=== PATIENT | male | born 1960 | race Caucasian/White ===

== ENCOUNTER 2017-04-22 02:44 | Day surgery (SDC) | payer MEDICAID ==
[~2017-04-22] VITALS: Ht 172.7 cm; Wt 71.7 kg
[~2017-04-22 02:44] MED LIST: ATOR20TA65 PO; CHLO100T2 PO; CHLO200T PO; DIPH-740 PO; DIV500ER PO; DIVA-6 PO; DIVA500T98 PO; DOCU-416 PO; FLUV100C PO; GOLYTE PO; NICO-219 BC; NYST15PO4 TP; OLAN20TA22 PO; QUE100 PO; QUET200T29 PO; SERT-173 PO
[2017-04-22 11:03] VITALS: BP_SYST 126; BP_SYST 192; BP_DIAS 119; BP_DIAS 90
[2017-04-22] MEDS ORDERED: LIDOCAINE MPF 1% 5 ML VIAL ONE (12:51)
[2017-04-22] MEDS ORDERED: PROPOFOL EMUL(*) 10MG/ML 20 ML 60 ML ONE (12:51)
[2017-04-22] MEDS ORDERED: LIDOCAINE/SOD BICARB 8.4% SYR ID ONE (13:00)
[2017-04-22] MEDS ORDERED: NORMOSOL R SOLN(*) 1000 ML BAG 1,000 ML IV PRN (13:00)
[2017-04-22] MEDS ORDERED: MIDAZOLAM 2 MG/2 ML VIAL IVP PRN (13:00)
[2017-04-22 14:33] VITALS: BP 94/59
--- NOTE | 2017-04-22 14:50 | Short(Outpt) Discharge Summary ---
Discharge Summary Reason for Hosp/Final Diag: (1) Bleeding per rectum Status: Chronic Hospital Course & Plan: Colonoscopy with polypectomy and biopsy of upper rectal mass completed without any problems. (2) Fecal incontinence Status: Chronic Departure Discharge to: Home, Self Care Discharge Instructions Home Meds Active Scripts Peg/Electrolytes (GOLYTELY SOLUTION) 4,000 Ml Soln, 1 GAL PO ONCE, #1 GAL 0 Refills Prov:ZACH CLAUDIO MD 04/12/17 Reported Medications Olanzapine (OLANZAPINE) 20 Mg Tablet, 20 MG PO QHS 11/06/16 Divalproex Sodium (DEPAKOTE) 500 Mg Tablet.dr, 1000 MG PO QHS, TAB 11/06/16 Divalproex Sodium (DEPAKOTE) 500 Mg Tablet.dr, 500 MG PO QAM, TAB 11/06/16 Discontinued Scripts Nystatin 100,000 Unit/Gm Top Powder (NYSTATIN 100,000 UNIT/GM TOP POWDER) 15 Gm Powder, 15 GM TP BID, #15 GM 1 Refill Prov:KHOA MADRID MD 02/19/17 Follow up Referrals: General Surgery - 04/30/17 @ Surgery, General with Zach Claudio Md You have a follow up appointment scheduled with Dr. Claudio on 04/30/17, at 12:30pm. Diet: Regular Activity: As Tolerated Problem Qualifiers (1) Fecal incontinence: Fecal incontinence type: unspecified Qualified Codes: R15.9 - Full incontinence of feces ZACH CLAUDIO MD Apr 22, 2017 14:50
[2017-04-22 14:56] VITALS: BP 126/87
--- NOTE | 2017-04-22 14:58 | Post Operative Progress Note ---
Post Operative Progress Note Date: Apr 22, 2017 Time: 14:50 Surgeon: Jude Dictation number: [id number] on M*Modal Anesthesia: TIVA by Dr. Bullock Pre-Op Diagnosis: BRBPR Fecal incontinence Rectal lesion on MRI Post-Op Diagnosis: Sigmoid colon polyp Rectal polyp Rectal mass, circumferential but not obstructing Findings: 1 cm sigmoid polyp 2 cm pedunculated rectal polyp Circumferential, 5cm long, rectal mass from 10-15cm from anal verge Procedure(s): Colonoscopy with snare polypectomy x2 and biopsy of rectal mass Specimen Removed:(May be N/A): 1) Sigmoid polyp 2) Rectal polyp 3) Rectal mass Complications: None Fluids: See anesthesia record Estimated Blood Loss: Minimal Date OP Note Dictated: Apr 22, 2017 Time OP Note Dictated: 14:52 ZACH CLAUDIO MD Apr 22, 2017 14:58
[2017-04-22 15:19] VITALS: BP 116/79
--- NOTE | 2017-04-24 10:41 | ULLRICH COLONOSCOPY ---
EVENT DATE: April 22, 2017 SURGEON: Luis F Roque MD ANESTHESIOLOGIST: Familia Bullock MD ANESTHESIA: TIVA PREOPERATIVE DIAGNOSIS 1. Bright red blood per rectum. 2. Fecal incontinence. 3. Rectal lesion on pelvic MRI. POSTOPERATIVE DIAGNOSIS 1. Sigmoid colon polyp. 2. Rectal polyp. 3. Large rectal mass, circumferential, not obstructing. PROCEDURE PERFORMED Colonoscopy with polypectomy x2 and biopsy of rectal mass. COMPLICATIONS None. CONDITION Stable. ESTIMATED BLOOD LOSS None. SPECIMENS 1. Sigmoid colon polyp. 2. Rectal polyp. 3. Rectal mass. FINDINGS This patient had a semipedunculated sigmoid polyp and a fully pedunculated rectal polyp. The sigmoid polyp was about 1 cm in diameter, and the rectal polyp was about 2 cm in diameter. He had a circumferential mass suspicious for a cancer that started at 10 cm from the anal verge and went up to 15 cm from the anal verge. It was not obstructing. There was no active bleeding. BOWEL PREP Excellent. INDICATIONS This is 56-year-old gentleman with severe bipolar disorder. He was referred to my office with bright red blood per rectum and fecal incontinence. He was initially resistant to much of anything in the way of a workup, and he refused colonoscopy initially, but ultimately I was able to talk him into a MRI of his pelvis. This revealed a circumferential thickening consistent with a possible neoplasm. When I saw him back, I confronted him with this information and ultimately was able to persuade him that a colonoscopy would be in his best interest. He has provided consent for colonoscopy to evaluate this. DESCRIPTION OF PROCEDURE The patient was brought to the endoscopy room and placed in the left lateral decubitus position. TIVA was administered. A digital rectal examination was completed which was unremarkable. Sphincter tone seemed to be intact. There was no palpable mass at the extent I could get my finger in to the rectum. The colonoscope was obtained and tested to ensure it was completely functional and was lubricated and inserted into his rectum through his anus. I immediately saw the mass and measured the distance from the anal verge at about 10 cm and then was able to advance the scope easily beyond the mass. It ended at about 15 cm from the anal verge. I was then able to advance the scope all the way through to the cecum. I then slowly withdrew the scope and looked at all mucosal surfaces for any abnormalities. In the sigmoid colon was a semipedunculated polyp that was about 1 cm in diameter. I removed this with a snare. I continued to withdraw the scope and identified a pedunculated polyp adjacent to the rectal mass on the distal end of the rectal mass. I removed this with a snare in its entirety. I then took several hot forceps biopsies of the actual rectal mass and then took some snare biopsies to remove more tissue to confirm a diagnosis of it, as well. I made sure this was all hemostatic with the hot biopsy forceps. There was no active bleeding when this was complete. I retroflexed the the scope to look at the distal rectum and proximal anal canal. This was unremarkable. I straightened the scope and suctioned as much of the CO2 out as I could, and then withdrew the scope from his rectum. He was then brought to the recovery area in good condition, having tolerated the procedure without any apparent problems. [place]
== END 2017-04-22 15:40 | disposition home or self-care (01) ==
LOC: OR 02:44
PROVIDERS: ATTEND Surgery
DX: C20 Malignant neoplasm of rectum (principal)
CPT/HCPCS: 45384; 45385; 88305; J2001; J2704

== ENCOUNTER → 2017-05-03 | Outpatient (CLI) | payer MEDICAID ==
[~2017-05-03] MED LIST changes: -SERT-173 PO; +SERT20OR6 PO
[2017-05-03 14:06] LABS: PLATELET COUNT, AUTOMATED 407 K/uL (150-450)
== END ==
LOC: LAB 13:19
PROVIDERS: ATTEND Surgery
DX: C20 Malignant neoplasm of rectum (principal); F31.9 Bipolar disorder, unspecified; E78.5 Hyperlipidemia, unspecified
CPT/HCPCS: 36415; 80164; 82040; 82247; 82248; 82310; 82374; 82378; 82435; 82465; 82565; 82947; 83718; 84075; 84132; 84155; 84295; 84450; 84460; 84478; 84520; 85025

== ENCOUNTER 2017-05-13 10:00 | Outpatient (RCR) | payer MEDICAID ==
[~2017-05-13] VITALS: Ht 171.4 cm; Wt 74.6 kg
[2017-05-13 10:18] VITALS: BP 128/89
--- NOTE | 2017-05-13 18:16 | CONSULTATION ---
EVENT DATE: May 13, 2017 REFERRING PHYSICIAN Luis F Roque MD REASON FOR CONSULTATION Evaluation and management of rectal adenocarcinoma. HISTORY OF PRESENT ILLNESS Patient is a 56-year-old male with history of severe bipolar disorder, who presented with rectal bleeding and fecal incontinence. So the patient had an MRI of the pelvis done on April 05, 2017, which showed an anal mass at the mid rectum 6.57 cm from the anal verge with possible penetration to the mesorectal fat with no lymphadenopathy noted. This was followed by colonoscopy with biopsy done on April 22, 2017, and there was a rectal mass and the pathology came back positive for invasive adenocarcinoma, and there was also a polyp in the sigmoid colon which turned out to be a tubular adenoma. Patient had a PET CT scan done on May 07, 2017 which showed hypermetabolic mid rectal mass SUV 15.7 with extension of the mass to the mesorectal fascia. There were two 6 mm mesorectal nonhypermetabolic lymph nodes. PAST MEDICAL HISTORY 1. Bipolar disorder. 2. Hyperlipidemia. 3. OCD. 4. History of skin cancer. PAST SURGICAL HISTORY 1. Appendectomy in 1985. 2. Tonsillectomy in 1967. 3. Cornea transplant in 1999. 4. Hernia repair. FAMILY HISTORY Mother had colon cancer at the age of 60, maternal aunt colon cancer at the age of 57, paternal aunt with lung cancer. SOCIAL HISTORY Patient is single with two children. He smokes one pack a day for nearly 40 years. Denies any abuse of alcohol or illicit drugs. CURRENT MEDICATIONS 1. Olanzapine 20 mg at bedtime. 2. Depakote 1000 mg at bedtime and 500 mg every morning. ALLERGIES PREDNISONE, which causes skin rash. REVIEW OF SYSTEMS CONSTITUTIONAL: No appetite or weight change. No fever, chills or sweating. No recent infection. HEENT: Ears: No tinnitus or hearing problem. Nose: Patient has nasal discharge. Throat: No sore throat or mouth ulcers. Eyes: No diplopia or visual changes. RESPIRATORY: Patient has occasional wheezing from asthma. CARDIOVASCULAR: No chest pain, orthopnea, or paroxysmal nocturnal dyspnea (PND) . No edema. No palpitations. GASTROINTESTINAL: Patient had diarrhea and rectal bleeding recently. GENITOURINARY: No hematuria or dysuria. NEUROLOGICAL: Patient has occasional headache. HEMATOLOGIC/LYMPHATIC: No bleeding or easy bruising. No weakness or fatigue. No enlarged lymph nodes. SKIN: No skin rash or lumps. PSYCHIATRIC: No anxiety or depression. PHYSICAL EXAMINATION GENERAL: Looks stable. Well-developed, well-nourished, and in no acute distress. VITAL SIGNS: Blood pressure 128/89, pulse 79 per minute, respirations 16 per minute, temperature 97.1, pulse oximetry 96% on room air. HEENT: Head: Atraumatic. No sinus tenderness to palpation. Eyes: No icterus or conjunctivitis. Mouth and throat: No oral thrush or mucositis. NECK: Supple. No cervical or supraclavicular lymphadenopathy. LUNGS: Clear to auscultation and percussion bilaterally. HEART: Regular rate and rhythm. No gallops, murmurs, clicks or rubs. ABDOMEN: Soft and lax. No tenderness. No hepatosplenomegaly. No masses. EXTREMITIES: No cyanosis, clubbing or edema. LYMPHATICS: No peripheral lymphadenopathy. NEUROLOGICAL: Conscious, alert and oriented times three. No focal motor or sensory deficits. PSYCHIATRIC: Mood and affect appear normal. SKIN: No skin rash, bruise or purpuric eruption. ASSESSMENT 1. Stage T3 rectal adenocarcinoma status post colonoscopy with biopsy, and the patient was found to have a rectal mass at the mid rectum 6.5 cm from the anal verge with possible penetration to the mesorectal fascia without noted lymph nodes by the MRI of the pelvis done on April 05, 2017. PET CT scan done on May 07, 2017 showed hypermetabolic mid rectal mass with SUV 15.7 with extension of the mass to the mesorectal fascia, but there was no hypermetabolic lymphadenopathy by the PET scan. Given his general condition with bipolar disorder, and patient has involuntary movements sometimes of his hands, I do not think the patient will be a good candidate for intravenous continuous infusion of 5-FU, and instead I am planning to treat him with capecitabine during radiation therapy. I will arrange an appointment with the radiation oncologist and I will coordinate with them to start capecitabine when the patient will start radiation therapy. Following chemoradiation patient will be referred back to Dr. Roque for surgical resection and we will see him after surgery to decide if he will need adjuvant chemotherapy based on the pathological diagnosis and stage or not. I explained that to the mother who accompanied the patient, and they are agreeable with the plan of management. 2. Bipolar disorder on treatment. PLAN 1. Radiation Therapy consultation. 2. Capecitabine 800 mg/m2 to be given during radiation therapy. 3. CBC, chem panel to be checked prior to starting chemotherapy. 4. Patient to return on a weekly basis after starting chemotherapy with CBC, chem panel. 5. Patient to contact us for any new concern or complaints. MTDD
--- NOTE | 2017-05-18 18:40 | CONSULTATION ---
EVENT DATE: May 18, 2017 REFERRING PHYSICIANS MD Luis F Green MD PRIMARY SITE AND HISTOPATHOLOGY Invasive adenocarcinoma of the rectum. Tumor located in the mid rectum 6.5 cm from the anal verge. PET/CT imaging on May 07, 2017 estimating the rectal mass size to be 3.1 x 3.7 x 3.8 cm. SUV 15.7 consistent with hypermetabolic mass. Tumor extension through the muscularis propria into the mesorectal fat. No hypermetabolic lymphadenopathy is noted. No signs of pulmonary or hepatic metastases. Rectal mass was biopsied on April 23, 2017. HISTORY This is a 56-year-old gentleman with severe bipolar disorder. He is an unreliable historian so the majority of his history was gained from his mother. The patient has been having difficulties with fecal incontinence for the last three months. He has also been experiencing rectal bleeding during that time frame. He denies any pain. The patient was initially seen by Dr. Welch and referred to Dr. Roque for further assessment. The patient underwent a colonoscopy with biopsy of a large rectal mass. This was described as circumferential, 5 cm in length. Rectal mass located 10-15 cm from the anal verge. Biopsy was confirmatory for invasive adenocarcinoma. Additional biopsy from the sigmoid colon was a tubular adenoma. The patient had a PET CT scan performed in [place] on May 07, 2017 which demonstrated a hypermetabolic large mass in the presacral area consistent with the listed dimensions above. There were two 6 mm adjacent lymph nodes noted, but they were not hypermetabolic. No signs of distant tumor metastasis. The patient has been seen by Dr. Sanchez and is set to start capecitabine ( Xeloda) with concurrent radiation therapy. I am meeting the patient for the first time today. Weight loss of approximately five pounds in the last three months. The patient has severe anxiety. He is unable to focus during the interview today. He tends to shake when he gets nervous and also at rest. When he is nervous he will state he is seeing a floater in his right eye according to his mother, which was the case today. He denies any rectal pain. He did have some irritation of the skin a few months back and was placed on an antifungal powder at that time. PAST MEDICAL HISTORY 1. Bipolar disorder. 2. Hyperlipidemia. 3. OCD. 4. History of skin carcinoma over the nose. PAST SURGICAL HISTORY 1. Appendectomy in 1985. 2. Tonsillectomy in 1967. 3. Cornea transplant 1999. 4. Hernia repair. FAMILY HISTORY Notable for a mother who had colon cancer at age 60, maternal aunt with colon cancer at age 57, paternal aunt with lung cancer. SOCIAL HISTORY Patient lives with his mother. Smoking history of one pack per day for 40 years. He is listed as single with two children. MEDICATIONS 1. Olanzapine 20 mg q.day. 2. Depakote 500 mg one tablet b.i.d. 3. Fish oil q.day. 4. Multivitamin q.day. ALLERGIES PENICILLIN. REVIEW OF SYSTEMS Moderately unreliable. Difficulty with concentration, fatigue, rectal bleeding , tremor, urinary frequency related to fluid intake, loose bowels, blood in stools. PHYSICAL EXAMINATION GENERAL: A medium build 56-year-old male. VITAL SIGNS: BP 123/78, pulse 77, respirations 16, O2 sat 96%, height 68 inches , weight 170. LUNGS: Clear bilaterally. HEART: Sounds regular. ABDOMEN: Soft. RECTAL: I was unable to perform a rectal exam today as patient was very apprehensive. EXTREMITIES: Revealed no visible edema. IMPRESSION This is a 56-year-old gentleman who presents with locally advanced rectal carcinoma which unfortunately is associated with stool incontinence and bleeding. I reviewed the PET/CT scan and his baseline lab work. The tumor does not appear to make the CEA marker, which is normal at 1.8. LFTs are normal at this time and his hemoglobin is stable at 14.6. He appears to have an unfavorable T3 NX M0 malignancy. PLAN Proceed with external beam radiation therapy 50 5500 cGy with the shrinking field technique. Simulation will take place tomorrow. We will attempt the patient in a prone position first. If he is unable to hold still in that position, we will place the patient in a supine position. Treatments will take approximately 15-20 minutes to deliver daily. From my experience, rectal bleeding typically resolves by week three or four. We may see some improvement in bowel continence, but this is difficult to predict at this time. Patient will be followed closely during the treatment course. I met the patient's mother today and also introduced [facility]. Treatment regimen was described and signed consent was obtained from the patient. Approximately six weeks after the treatment is complete, the patient will be restaged and sent back to Dr. Roque for surgical considerations. Treatment course will be modified based on tolerance. MTDD
== END 2017-05-14 10:06 | disposition home or self-care (01) ==
LOC: ONC 10:00
PROVIDERS: ATTEND Internal Medicine Hematology
DX: C20 Malignant neoplasm of rectum (principal); F31.9 Bipolar disorder, unspecified; F17.210 Nicotine dependence, cigarettes, uncomplicated; R19.7 Diarrhea, unspecified; K62.5 Hemorrhage of anus and rectum
CPT/HCPCS: 99202

== ENCOUNTER 2017-07-06 08:56 | Outpatient (RCR) | payer MEDICAID ==
--- NOTE | 2017-05-19 16:10 | ONC Progress Note - NP.Halsey ---
Patient History Date of Service May 19, 2017 Reason For Visit/HPI Patient seen with the care team to include his mother, social organization professor, medical oncology nursing, radiation oncology nursing and myself to discuss education prior to starting treatment with oral Xeloda and concurrent daily radiation therapy for his invasive adenocarcinoma of the rectum. Patient is anxious but participated well in the education today. Prior to this appointment patient completed CT simulation for treatment planning of radiation therapy. Side effects and management of side effects of both modalities of treatment were reviewed with patient and his mother today. Safety factors regarding medication management were reviewed. Patient reports that he is currently having rectal bleeding and stool incontinence. He has a history of low sodium thought to be related to his Depakote medication. Problem List (1) Acute psychosis (2) Bleeding per rectum (3) Fecal incontinence (4) Hyponatremia with decreased serum osmolality (5) OCD (obsessive compulsive disorder) (6) Severe manic bipolar 1 disorder with psychotic behavior (7) Rectal cancer Medical History Family History: FH: colon cancer MOTHER FH: depression MOTHER FH: heart disease FATHER FH: thyroid disease FATHER BROTHER OR SISTER Psychosocial History Social History Patient lives with his mother. Smoking history of one pack per day for 40 years. He is listed as single with two children. Occupational History Patient is currently on disability Smoking History: Yes (1 PPD) Smoking Status: Heavy Tobacco Smoker Exposure to Second Hand Smoke?: No Medications and Allergies Active Scripts Capecitabine (XELODA) 500 Mg Tab, 1500 MG PO BID, #6 TAB Prov:VIVIANA COLORADO [facility]-, ONC 05/19/17 Ondansetron (ZOFRAN ODT) 8 Mg Tab.rapdis, 8 MG PO Q8H for nausea, #30 TAB 1 Refill Prov:VIVIANA COLORADO [facility]-, ONC 05/19/17 Reported Medications Olanzapine (OLANZAPINE) 20 Mg Tablet, 20 MG PO QHS 11/06/16 Divalproex Sodium (DEPAKOTE) 500 Mg Tablet.dr, 1000 MG PO QHS, TAB 11/06/16 Divalproex Sodium (DEPAKOTE) 500 Mg Tablet.dr, 500 MG PO QAM, TAB 11/06/16 Allergies: Coded Allergies: Penicillins (Verified Allergy, Unknown, 10/24/16) Review of System/Physical Exam Review of Systems All Systems Reviewed/Normal: Yes, Except as Noted Hematologic: Positive for Bleeding, Positive for Fatigue, Positive for Weakness Psychiatric: Anxiety, Depression Physical Exam Vital Signs Temperature: Pulse: BP Systolic: BP Diastolic: Respiratory Rate: O2 SAT: O2 Delivery: Height (inches) 67.50 Weight lb: 158 Weight oz: Weight Kg (Chidi): Pain: General: Stable, Well Developed, Well Nourished, Not In Acute Distress Psychiatric: Other (Patient is anxious and shakes his hands frquently. He was attentive when in the room and answered my questions appropriately. He did leave the room frequently to go to the bathroom. Noted to be agitated but improved from yesterday. ) Chemo Education Chemotherapy Education: Patient is seen today for education regarding chemotherapy with oral Xeloda for his rectal cancer. The treatment schedule and associated appointments were discussed and reviewed. A print out will be given to the patient. The intent for treatment is currative. Consent for treatment was completed today post education and his mother also signed the form as a witness. Mechanism of action and associated side effects of oral xeloda was discussed. The patient is at increased risk for infection related to bone marrow suppression with chemotherapy. Signs and symptoms of infection were reviewed with recommendation of calling the clinic if fever, chills or a temperature of 100.5 or greater is experienced. Regular monitoring of blood work will be completed. The patient is at increased risk of nausea and vomiting related to chemotherapy. Home antiemetics were reviewed with a schedule of when to take them. Script for zofran was sent to [facility]. Increased bowel movements or diarrhea may occur. The use of Imodium was reviewed and encouraged to have on hand. He will be prescribed Lomotil if needed. Dehydration from decreased intake, nausea or diarrhea could also occur. Side effects of dehydration were reviewed and hydration will be given as needed. Self-care strategies to minimize any symptoms from treatment were taught and written material was given for further review at home. The strategies included: dietary modifications for nausea, diarrhea, fatigue and/or mouth sores, exercise and resting for fatigue, hydration for dehydration, and skin care for dry skin reactions. In addition, safety measures for oral chemotherapy to prevent teratogenic side effects to others was reviewed in detail to include good hand washing, double flushing, and what to do during sexual intercourse. Patient reports that he is not sexually active. The above information will be reviewed with the patient and family members as needed. Assessment and Plan Assessment & Plan Patient is a 56-year-old gentleman with locally advanced rectal carcinoma. Patient is currently experiencing associated stool incontinence and rectal bleeding. PET/CT scan was reviewed as well as CEA tumor marker which was reported normal at 1.8 and is suggestive that it does not make the CEA marker. He appears to have an unfavorable T3 NX MO malignancy. The plan of care would be to proceed with radiation therapy to shrink the field. Patient will also have concurrent oral Xeloda at 1500 mg twice a day taken on Wednesday through Wednesday and held on Wednesday and Wednesday. Zofran was prescribed for management of nausea. Patient was encouraged to have Imodium on hand for management of diarrhea. Education was completed to review side effects of oral chemotherapy and radiation therapy. Written material was given to patient and his mother to review as needed. A consent was signed for radiation therapy with Dr. Jenkins yesterday during initial consult and today myself during education. A Patient will complete approximately 6 weeks of combined treatment , the patient will then be sent back to Dr. Zepeda for surgical considerations. Treatment will be modified based on tolerance. Patient is scheduled to start next Wednesday taking oral Xeloda at 8 AM and 8 PM and radiation therapy as scheduled. He will have weekly labs drawn on Wednesdays. He will follow with myself on a weekly basis and with radiation oncology on Tuesdays. I personally spent a total of 60 minutes was spent [id number] with patient and his mother discussing plan of care and management. VIVIANA [place]-BC, ONC May 19, 2017 16:10
[~2017-07-06 08:56] MED LIST changes: +ONDA8TAB94 PO; +SERT-173 PO; -SERT20OR6 PO; +XELOD500PT PO
[2017-08-16] MEDS ORDERED: GOLYTE PO (13:25)
== END 2017-08-15 ==
LOC: RAON 08:56
PROVIDERS: ATTEND Radiology Radiation Oncology
DX: Z51.0 Encounter for antineoplastic radiation therapy (principal); C20 Malignant neoplasm of rectum; Z85.828 Personal history of other malignant neoplasm of skin; E78.5 Hyperlipidemia, unspecified; R53.83 Other fatigue; R35.0 Frequency of micturition
CPT/HCPCS: 36415; 77280; 77290; 77295; 77300; 77301; 77334; 77336; 77338; 77386; 77412; 82040; 82247; 82310; 82374; 82435; 82565; 82947; 84075; 84132; 84155; 84295; 84450; 84460; 84520; 85025; 99203

== ENCOUNTER 2017-08-06 14:59 | Outpatient (RCR) | payer MEDICAID ==
[2017-05-26 09:15] VITALS: BP 106/78
[2017-05-26 09:38] LABS: PLATELET COUNT, AUTOMATED 408 K/uL (150-450)
[2017-06-02 09:30] VITALS: BP 117/86
[2017-06-02 09:39] LABS: PLATELET COUNT, AUTOMATED 446 K/uL (150-450)
[2017-06-09 09:23] VITALS: BP 153/91
[2017-06-09 09:38] LABS: PLATELET COUNT, AUTOMATED 374 K/uL (150-450)
[2017-06-16 09:35] VITALS: BP 145/96
[2017-06-16 09:39] LABS: PLATELET COUNT, AUTOMATED 273 K/uL (150-450)
[2017-06-23 09:26] VITALS: BP 114/50
[2017-06-23 09:31] LABS: PLATELET COUNT, AUTOMATED 231 K/uL (150-450)
[2017-06-30 09:31] LABS: PLATELET COUNT, AUTOMATED 298 K/uL (150-450)
[2017-08-06 15:16] VITALS: BP 134/84
[2017-08-06 15:29] LABS: PLATELET COUNT, AUTOMATED 358 K/uL (150-450)
[2017-08-16] MEDS ORDERED: GOLYTE PO (13:25)
== END 2017-08-23 ==
LOC: SPU 14:59
PROVIDERS: ATTEND Internal Medicine Hematology
DX: C20 Malignant neoplasm of rectum (principal)
CPT/HCPCS: 36415; 82040; 82247; 82310; 82374; 82378; 82435; 82565; 82947; 84075; 84132; 84155; 84295; 84450; 84460; 84520; 85025

== ENCOUNTER → 2017-08-17 | Outpatient (CLI) | payer MEDICAID ==
[~2017-08-17] MED LIST changes: +GADOBENATE 529MG/1ML 15ML VIAL IVP ONE; +NS 0.9% 20 ML SDV 40 ML ONE
--- NOTE | 2017-08-17 16:45 | RADIOLOGY IMAGING REPORT ---
FACILITY: [facility] - [place] PATIENT NAME: Matthew Roth : 1960 MR: [id number] V: [id number] EXAM DATE: ORDERING PHYSICIAN: ZACH CLAUDIO TECHNOLOGIST: Location: [facility] [place] Patient: Matthew Roth : 1960 Visit/Account:[id number] Date of Sevice: 08/17/2017 PELVIS W W/O CONTRAST COMPARISON: Pelvis MRI 04/05/2017. HISTORY: Rectal cancer TECHNIQUE: Multiplanar MRI pelvis utilizing T1-weighted and fluid sensitive sequences. CONTRAST: 15 mL of IV Gadobenate intravenously. MRI PELVIS FINDINGS: VASCULAR: Unremarkable. PELVIC BOWEL: Mid rectal mass is again identified but less conspicuous compared to the previous stud y, overall measuring smaller. On today's exam along the left lateral wall of the rectum between one and 5:00 positions there is a f lat morphology mass measuring about 1.7 x 3.2 cm transversely by up to 4.4 cm craniocaudally (series 17 image 31, series 10 image 14). This compares to measurements of 2.2 x 3.5 x 4.6 cm on the prior. A focal, nodular contour bulge into the mesorectal fat near the 2:00 position is smaller, currently about 1.1 cm transverse diameter (series 17 image 31), previously 1.9 cm. There is again probably re presents invasion through the muscularis propria. On the prior study this component of tumor demonst rated hypoenhancement consistent with necrosis but on today's study it enhances similarly to the rest of the lesion. There is a thin linear extension from this bulge to the anterior mesorectal fat seri es 17 image 30, retrospectively considered unchanged from the previous study considering that the eleni or study did not include a small [id number] high resolution sequence. Previous study demonstrated restricted diffusion circumferentially in the rectum at the level of tumo r suggesting an annular lesion. On today's exam there is annular constriction of the rectum, with mi ld associated wall thickening and enhancement best seen coronal series 6 image 34, supporting this, b ut the diffusion abnormality has resolved. Change in diffusion signal also suggests partial treatmen t response. BLADDER: Unremarkable. No visible focal wall thickening, appreciable lesion, or calculus. PELVIC NODES: Unremarkable. No adenopathy. PELVIC ORGANS: Unremarkable prostate within the limitations of scan protocol. BONES: Unremarkable. No acute appearing fracture or suspicious bone lesion. OTHER: Negative. IMPRESSION: 1. Compared to 04/05/2017, decreased size of an annular, constricting mid rectal mass which has a fl at component along its left lateral wall. 2. Decreased size of a nodular component at its 2:00 position consistent with extension of tumor thr ough the muscularis propria. 3. Linear enhancement extending from the contour bulge to the anterior mesorectal fascia which is un changed. 4. No evidence of distant metastatic disease in the pelvis. Report Dictated By: Dionisio Mahmood at 08/17/2017 4:10 PM Report E-Signed By: Dionisio Mahmood at 08/17/2017 4:40 PM WSN:[id number]
== END ==
LOC: MRI 07:00
PROVIDERS: ATTEND Surgery
DX: C20 Malignant neoplasm of rectum (principal)
CPT/HCPCS: 72197; A9577; J7050

== ENCOUNTER 2017-08-26 00:40 | Day surgery (SDC) | payer MEDICAID ==
[~2017-08-26] VITALS: Ht 170.2 cm; Wt 70.3 kg
[~2017-08-26 00:40] MED LIST changes: -GADOBENATE 529MG/1ML 15ML VIAL IVP ONE; -NS 0.9% 20 ML SDV 40 ML ONE
[2017-08-26] MEDS ORDERED: PROPOFOL EMUL(*) 10MG/ML 20 ML 60 ML ONE (10:40)
[2017-08-26] MEDS ORDERED: LIDOCAINE MPF 1% 5 ML VIAL ONE (10:40)
[2017-08-26] MEDS ORDERED: KETOROLAC 30 MG/ML VIAL ONE (10:59)
[2017-08-26] MEDS ORDERED: LIDOCAINE/SOD BICARB 8.4% SYR ID ONE (11:50)
[2017-08-26] MEDS ORDERED: NORMOSOL R SOLN(*) 1000 ML BAG 1,000 ML IV PRN (11:50)
[2017-08-26 11:52] VITALS: BP 132/94
[2017-08-26] MEDS ORDERED: PHENYLEPHRINE 10 MG/1 ML VIAL ONE (11:52)
[2017-08-26] MEDS ORDERED: PROPOFOL EMUL(*) 10MG/ML 20 ML 20 ML ONE (13:37)
[2017-08-26 13:58] VITALS: BP 84/58
[2017-08-26 14:00] VITALS: BP 91/62
--- NOTE | 2017-08-26 14:11 | Short(Outpt) Discharge Summary ---
Discharge Summary Reason for Hosp/Final Diag: (1) Rectal cancer Status: Chronic Hospital Course & Plan: Colonoscopy with polypectomy completed without problems. Departure Discharge to: Home, Self Care Discharge Instructions Home Meds Active Scripts Peg/Electrolytes (GOLYTELY SOLUTION) 4,000 Ml Soln, 1 GAL PO ONCE, #1 GAL 0 Refills Prov:ZACH CLAUDIO MD 08/16/17 Reported Medications Olanzapine (OLANZAPINE) 20 Mg Tablet, 20 MG PO QHS 11/06/16 Divalproex Sodium (DEPAKOTE) 500 Mg Tablet.dr, 1000 MG PO QHS, TAB 11/06/16 Divalproex Sodium (DEPAKOTE) 500 Mg Tablet.dr, 500 MG PO QAM, TAB 11/06/16 Discontinued Scripts Capecitabine (XELODA) 500 Mg Tab, 1500 MG PO BID, #6 TAB Prov:VIVIANA COLORADOP-BC, ONC 05/19/17 Ondansetron (ZOFRAN ODT) 8 Mg Tab.rapdis, 8 MG PO Q8H for nausea, #30 TAB 1 Refill Prov:VIVIANA [place]O NATIONAL INSURANCE OFFICER-BC, ONC 05/19/17 Follow up Referrals: General Surgery - 09/03/17 @ Surgery, General with Zach Claudio Md You have a follow up appointment scheduled with Dr. Claudio on 09/03/17, at 10:00am. Diet: Regular Activity: As Tolerated ZACH CLAUDIO MD August 26, 2017 14:11
[2017-08-26 14:15] VITALS: BP 104/76
--- NOTE | 2017-08-26 14:17 | Post Operative Progress Note ---
Post Operative Progress Note Date: August 26, 2017 Time: 14:10 Surgeon: Jude Dictation number: [id number] Anesthesia: TIVA by Dr. Bullock Pre-Op Diagnosis: Rectal cancer, s/p neoadjuvant chemotherapy and radiation Post-Op Diagnosis: EDGARDO Findings: Polyp at hepatic flexure Ulceration in upper rectum where cancer was located, distal edge of ulcer at 12cm from anal verge Procedure(s): Colonoscopy with polypectomy Specimen Removed:(May be N/A): Hepatic flexure polyp Complications: None Fluids: See anesthesia record Estimated Blood Loss: Minimal Date OP Note Dictated: August 26, 2017 Time OP Note Dictated: 14:12 ZACH CLAUDIO MD August 26, 2017 14:17
[2017-08-26 14:57] VITALS: BP 132/85
[2017-08-26 14:59] VITALS: BP 125/91
--- NOTE | 2017-08-26 19:42 | OPERATIVE REPORT 1 ---
EVENT DATE: August 26, 2017 ENDOSCOPIST: Luis F Roque MD ANESTHESIOLOGIST: Familia Bullock MD ANESTHESIA: TIVA. PREPROCEDURE DIAGNOSIS Rectal cancer. POSTPROCEDURE DIAGNOSIS Rectal cancer. PROCEDURE PERFORMED Colonoscopy with snare polypectomy. COMPLICATIONS None. CONDITION Stable. BLOOD LOSS None. FINDINGS Patient had a 1 cm polyp at the hepatic flexure. He had a large area of ulceration in the area where his previous rectal cancer was located. The distal end of the ulceration was at about 12 cm from the anal verge. No other abnormalities were found. INDICATIONS This is a 57-year-old gentleman who initially presented to my office with fecal incontinence and bright red blood per rectum. He had never had a colonoscopy, so we completed this and identified a rectal cancer. He then underwent neoadjuvant chemo and radiation therapy, and now he is recovering from this, and we are starting to plan for surgical resection. He has provided consent for colonoscopy. DESCRIPTION OF PROCEDURE The patient was brought to the operating room and placed in the left lateral decubitus position on his gurney. TIVA anesthesia was administered, and a digital rectal exam was completed which was unremarkable. The colonoscope was obtained and tested to ensure it was completely functional, then lubricated and inserted into his rectum through his anus. I advanced the scope with very little difficulty all the way through the cecum and also terminal ileum and slowly withdrew the scope as I looked at all mucosal surfaces for any abnormalities. At the hepatic flexure, there was a 1 cm polyp which was removed with a snare, and it was retrieved. I continued to withdraw the scope and in the rectum saw the ulceration where the previous cancer had been. There were some surrounding inflammatory changes around the ulceration. I then retroflexed the scope to look at the distal rectum, and there were no abnormalities here. I then removed the scope and obtained a rigid proctoscope and inserted it into his rectum. I insufflated the rectum and advanced it all the way to the distal end of the area of the ulceration. It was about 12 cm at the anal verge. I then desufflated his colon and removed the proctoscope. The prep was good, and the withdrawal time was approximately 10 minutes. He was then brought back to the recovery area in good condition. RICO
[2017-08-27] MEDS ORDERED: NORMOSOL R SOLN(*) 1000 ML BAG 1,000 ML IV PRN (06:15)
[2017-08-27] MEDS ORDERED: LIDOCAINE/SOD BICARB 8.4% SYR ID ONE (06:15)
== END 2017-08-26 15:15 | disposition home or self-care (01) ==
LOC: OR 00:40
PROVIDERS: ATTEND Surgery
DX: C20 Malignant neoplasm of rectum (principal); D12.3 Benign neoplasm of transverse colon
CPT/HCPCS: 00811; 45385; 88305; J2001; J2704; J1885; J2370

== ENCOUNTER 2017-09-10 02:31 | Inpatient (IN) | payer MEDICAID ==
[2017-09-08 11:49] LABS: PLATELET COUNT, AUTOMATED 333 K/uL (150-450)
[~2017-09-10] VITALS: Ht 170.2 cm; Wt 69.4 kg
[2017-09-10] VITALS (8 sets, daily range): BP systolic 83–218; BP diastolic 43–182
[2017-09-10] MEDS ORDERED: ACETAMINOPHEN(*)1000 MG/100 ML 100 ML IVPB ONE ×2 (06:47→18:38)
[2017-09-10] MEDS ORDERED: PROPOFOL EMUL(*) 10MG/ML 20 ML 20 ML ONE (09:14)
[2017-09-10] MEDS ORDERED: LIDOCAINE MPF 1% 5 ML VIAL ONE (09:14)
[2017-09-10] MEDS ORDERED: ROCURONIUM BROM 10 MG/ML 10 ML ONE (09:14)
[2017-09-10] MEDS ORDERED: ONDANSETRON 4 MG/2 ML VIAL ONE (09:14)
[2017-09-10] MEDS ORDERED: SUGAMMADEX SOD 200 MG/2 ML SDV ONE (09:17)
[2017-09-10] MEDS ORDERED: DEXAMETHASONE SOD 4 MG/ML VIAL ONE (09:17)
[2017-09-10] MEDS ORDERED: fentaNYL CITR 250 MCG/5 ML AMP ONE (09:20)
[2017-09-10] MEDS: FAMOTIDINE 20 MG TAB PO ONE ×2 (10:36→11:00)
[2017-09-10] MEDS: NORMOSOL R SOLN(*) 1000 ML BAG 1,000 ML IV PRN ×2 (10:36→10:39)
[2017-09-10] MEDS ORDERED: ROPIVACAINE 0.5% 20 ML VIAL ONE ×2 (10:45→17:32)
[2017-09-10] MEDS ORDERED: LIDOCAINE/SOD BICARB 8.4% SYR ID ONE (11:00)
[2017-09-10] MEDS ORDERED: MIDAZOLAM 2 MG/2 ML VIAL IVP PRN (11:00)
[2017-09-10] MEDS ORDERED: metroNIDAZOLE* 500MG/100ML BAG 100 ML IVPB ONE (11:00)
[2017-09-10] MEDS ORDERED: LEVOFLOXACIN/D5W*500 MG/100 ML 100 ML IVPB ONE (11:00)
[2017-09-10] MEDS ORDERED: ENOXAPARIN 40 MG/0.4ML SYR SC ONE (11:00)
[2017-09-10] MEDS ORDERED: FAMOTIDINE(*) 20MG/50ML PREMIX 50 ML IVPB ONE (11:03)
[2017-09-10] MEDS ORDERED: INDOCYANINE GREEN 25 MG VIAL IVP ONE (12:25)
[2017-09-10] MEDS ORDERED: MORPHINE 10 MG/ML SYR ONE ×2 (15:48→17:34)
[2017-09-10] MEDS ORDERED: fentaNYL CITR 100 MCG/2 ML AMP ONE ×2 (18:32→19:09)
[2017-09-10] MEDS ORDERED: MEPERIDINE 50 MG/ML SYR ONE (18:42)
[2017-09-10 18:46] LABS: PLATELET COUNT, AUTOMATED 329 K/uL (150-450)
[2017-09-10] MEDS ORDERED: ONDANSETRON 4 MG/2 ML VIAL IVP PRN (19:05)
[2017-09-10] MEDS ORDERED: FLUSH 10 ML SYR IVP PRN (19:05)
--- NOTE | 2017-09-10 19:23 | Post Operative Progress Note ---
Post Operative Progress Note Date: September 10, 2017 Time: 19:11 Surgeon: Jude Dictation number: [id number] Anesthesia: GETA by Dr. Lloyd Pre-Op Diagnosis: Rectal Cancer Post-Op Diagnosis: EDGARDO Findings: C/W dx Procedure(s): Robotic LAR with colostomy Laparoscopic lysis of adhesions Specimen Removed:(May be N/A): Rectum and distal sigmoid Complications: None Fluids: See anesthesia record Estimated Blood Loss: 100mL Date OP Note Dictated: September 10, 2017 Time OP Note Dictated: 19:12 ZACH CLAUDIO MD September 10, 2017 19:23
[2017-09-10] MEDS: NS(*) 0.9% 1000 ML BAG 1,000 ML IV PRN (20:12)
[2017-09-10] MEDS: OLANZapine 5 MG TAB PO SCH (20:20)
[2017-09-10] MEDS: metroNIDAZOLE* 500MG/100ML BAG 100 ML IVPB SCH (20:20)
[2017-09-10] MEDS: DIVALPROEX SOD DR 500 MG TAB PO SCH (21:24)
--- NOTE | 2017-09-10 21:48 | OPERATIVE REPORT 1 ---
EVENT DATE: September 10, 2017 SURGEON: Luis F Roque MD ANESTHESIOLOGIST: Luis F Lloyd MD ANESTHESIA: General endotracheal anesthesia. PREOPERATIVE DIAGNOSIS Rectal cancer. POSTOPERATIVE DIAGNOSIS Rectal cancer. PROCEDURES PERFORMED 1. Robotic low anterior resection with colostomy. 2. Adhesiolysis. COMPLICATIONS None. CONDITION Stable. BLOOD LOSS 100 mL URINE OUTPUT 600 mL FINDINGS This patient's colon cancer was seen after I opened up the colon after removing the specimen, and it was about 4 cm from the distal margin and over 20 cm from the proximal margin. It was a good total mesorectal excision with a nice smooth mesorectum, and there was no coning distally. It was squared off several centimeters distal to the cancer. SPECIMENS En bloc rectum and distal sigmoid. INDICATIONS This is a 57-year-old gentleman who presented to me several months ago with bright red blood per rectum, and a colonoscopy revealed a mid rectal cancer. He underwent neoadjuvant chemo and radiation therapy and tolerated this without problems. I rescoped him, and he had a great response with only a residual ulcer left where the cancer was. He recovered from chemo and radiation, and after eight weeks had gone by, he was scheduled for low anterior resection with a colostomy. 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 DESCRIPTION OF PROCEDURE The patient was brought to the operating room and placed supine on the operating table where general endotracheal anesthesia was administered, and a Wood catheter was inserted without any problems. His abdomen was prepped and draped in a sterile fashion, and a timeout was completed. I anesthetized the left subcostal skin with 0.5% ropivacaine plain and made a 5 mm transverse incision in the left subcostal skin. I used a Veress needle to insufflate the abdomen to a pressure of 18 mmHg. I then inserted an 8 mm robotic port with an optical trocar and a camera inside and focused, and inserted this port into the insufflated abdomen under direct visualization without any problems. There were some adhesions all in the midline in the right abdomen that were taken down rather easily with scissors, and then I placed another 8 mm robotic port in the epigastric midline, a 12 mm robotic port in the right mid abdomen about the level of the umbilicus, and then an 8 mm robotic port in the right lower quadrant. The patient was placed in Trendelenburg and planed towards his right , and then the robot was brought in, docked, targeted, and instruments inserted. I then went to the console, and there was some small bowel that was adherent down in the pelvis, although when I swept it out, there was a serosal injury, and I oversewed this with interrupted 3-0 Vicryl sutures. I ultimately ended up getting out of the pelvis and out of the way, and so then I mobilized the lateral aspect of the sigmoid colon and raised the sigmoid colon, identified the sacral promontory, and divided the mesocolon in this area. I then developed the presacral plane and completed a total mesorectal dissection all the way down to the level of the levator muscles posteriorly. I divided the lateral attachments to the rectum on both the right and the left side. The left ureter was clearly identified and preserved. I went around anteriorly and divided the peritoneal reflection and created the anterior dissection all the way down to the pelvic musculature. Once this dissection was completed and everything was hemostatic, I used a colonoscope inserted into his rectum and identified where the cancer was and identified the extent of my dissection. I was not happy with how much distal to it I was, and so I continued dissecting even further distally, retracting the rectum as I went and then used the Endo IGLESIA robotic stapler with a green load and divided the rectum. I got 90% of the way across and then divided the remaining 10% with another green load. I did free up some of the lateral attachments of the sigmoid colon all the way up into the descending colon, but did not mobilize the splenic flexure. I had more than enough length on the colon to create a colostomy. I then made a Pfannenstiel incision which was about 6 cm in length and went through the midline of the rectus muscles into the peritoneum, then put a wound protector in , and pulled the specimen out through this wound. Once I got well proximal of the rectum, I cleaned off the colon at this point and then used a IGLESIA stapler and divided the colon at this level. I then took the colon to the back table, opened it up, and identified the ulceration where the cancer was located. I was 4 cm away from the distal staple line and more than 20 cm away from the proximal staple line. The mesorectum was nice and smooth, and there was no coning distally. It was a nice squared end dissection distally. I continued for several centimeters beyond the cancer. This was then placed in a specimen container, and I regowned and gloved. I made a round, 50 cent piece size hole in the patient's left mid abdomen and dissected through the fat and through the anterior rectus fascia. I then split the muscles laterally and medially, then went through the posterior sheath and into the peritoneal cavity. I then used a Aurora and went to the Pfannenstiel incision and pulled the divided colon from the Pfannenstiel incision over to the colostomy wound. The wound protector was then removed, and the Pfannenstiel incision was closed with an 0 looped PDS suture in the midline fascia, 3-0 Vicryl in the subcutaneous tissues , and then 4-0 Monocryl running subcuticular sutures for the skin closure. I then irrigated and dried the pelvis and then placed a 10 mm flat Jose Alejandro-Ford drain down in the pelvis, and it came out through the 8 mm port in the right mid abdomen. This was sewed to the skin with 0 silk sutures. I placed 0 Vicryl [id number] suture to the fascia in the right lower quadrant 12 mm incision using a Alena suture passer. The fascia was well approximated, and it was airtight at this point. Happy with how everything looked at this point, all the rest of the instruments were removed, the robot undocked, and the skin incisions were all closed with 4-0 Monocryl subcuticular sutures. I then cleaned and dried the skin and placed Steri-Strips and sterile surgical dressings over each of these incisions. I placed 1010 drapes to protect them from the stoma as I matured the stoma. I then matured the stoma by placing interrupted 3-0 Vicryl sutures circumferentially around the stoma at the level of the skin and then cut off the staple line. I then everted the stoma and formed a nice protruding stoma that was 2 cm protruding relative to the skin plane. I sewed the end of the stoma to the skin with running 4-0 Monocryl sutures. The skin was cleaned and dried, and the stoma appliance was placed around the stoma. Also, incidentally I did use Firefly to confirm good blood flow to the colon both infra-abdominally and then also externally into the exposed portion of the stoma. There was good, brisk blood flow. After the skin was cleaned and dried, and the stoma appliance was placed, the 1010 drapes were removed. The patient was awakened and extubated in the operating room and transported to the recovery room in stable condition having tolerated the procedure without any apparent problems. RICO
[2017-09-10] MEDS: ACETAMINOPHEN(*)1000 MG/100 ML 100 ML IVPB SCH (23:35)
[2017-09-11] VITALS (7 sets, daily range): BP systolic 92–113; BP diastolic 56–91; Ht 170.2 cm; Wt 69.4 kg
[2017-09-11] MEDS: metroNIDAZOLE* 500MG/100ML BAG 100 ML IVPB SCH ×3 (03:22→19:43)
[2017-09-11] MEDS: ACETAMINOPHEN(*)1000 MG/100 ML 100 ML IVPB SCH ×4 (05:20→23:39)
[2017-09-11 06:07] LABS: PLATELET COUNT, AUTOMATED 272 K/uL (150-450)
[2017-09-11] MEDS: NS(*) 0.9% 1000 ML BAG 1,000 ML IV PRN (07:29)
--- NOTE | 2017-09-11 08:48 | General Surgery Progress Note ---
Subjective Progress Notes Subjective Difficult to get subjective report due to his disability. "Don't feel good." Physical Exam Vital Signs Date Time Temp Pulse Resp B/P (MAP) Pulse Ox O2 Delivery O2 Flow Rate FiO2 09/11/17 07:48 98.6 95 12 113/75 (88) 95 Nasal Cannula 2.0 Intake and Output 09/12/17 07:00 Output Total 1650 ml Balance -1650 ml Output Urine Total 1550 ml Drainage Total 100 ml General Appearance: Alert, Awake, No Acute Distress, Afebrile GI: Other (Soft, appropriate postop TTP. Dressings C/D/I except drain dressing is saturated so this was changed to a clean dressing.) Extremities: Warm, Perfused Result Diagram: 09/11/1751809/11/17518 Assessment and Plan Problems: (1) Rectal cancer Status: Chronic Assessment & Plan: 09/11/17: POD#1 s/p Robotic LAR with colostomy. Doing well so far. Awaiting return of bowel function. Continue bowel rest and IV fluids. Will start lovenox tomorrow if he's hemostatic with stable Hb. IV tylenol and DIETITIAN HELPER for pain control, will star toradol when H/H stable. Ambulate, IS, pulmonary hygiene, SCDs, PPI. (2) Hyponatremia with decreased serum osmolality Status: Resolved Assessment & Plan: Will follow during postop fluid resuscitation with NS and lower than usual rate. (3) Fecal incontinence Status: Resolved Assessment & Plan: Resolved with colostomy (4) Severe manic bipolar 1 disorder with psychotic behavior Status: Chronic (5) OCD (obsessive compulsive disorder) Status: Chronic Condition Stable. 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
[2017-09-11] MEDS: PANTOPRAZOLE SOD 40 MG IV VIAL IVP SCH (08:59)
[2017-09-11] MEDS: DIVALPROEX SOD DR 500 MG TAB PO SCH ×2 (08:59→21:29)
[2017-09-11] MEDS ORDERED: KETOROLAC 30 MG/ML VIAL IVP SCH (09:00)
[2017-09-11] MEDS: LEVOFLOXACIN/D5W*500 MG/100 ML 100 ML IVPB SCH (10:21)
[2017-09-11] MEDS: HYDROmorphone PCA 6 MG/30 ML IV PRN ×2 (11:04→21:09)
--- NOTE | 2017-09-11 12:30 | Medical Nutrition Therapy ---
Nutrition Anthropometrics Height (Inches): 67.00 Height (Calculated Centimeters: 170.433201 Weight (Pounds): 153 Weight (Calculated Kilograms): 69.400 BMI Calculated: 23.96 Sherman Nutrition Score: Adequate Sherman Nutrition Risk Score: 19 Dietary Referral Nutrition Risk Factors: Nutrition Risk Comment: Physical Findings Physical Appearance: WNR Skin Appearance Skin Appearance: Edema Edema Location Modifier: Edema Location: Type of Edema: Degree of Edema: Gastrointestinal Symptoms GI Symtoms: Nausea, Appetite Changes, Bloating Tube Present: Bowel Sounds: Recent Bowel Pattern: Stool Characteristics: Nutrition/Food History No Significant Nutr. HX psychogenic polydipsia resulting in hyponatremia Nutritional Diagnosis Nutritional Risk Acuity 2: New Colostomy Nutritional Risk Acuity 3: Cancer Past Medical History: fecal incontinence, severe manic bipolar 1 disorder with psychotic behavior, psychogenic polydipsia, hyponatremia, OCD Nutritional Acuity: 2-Moderate Nutrition Diagnosis: Increased Nutrient Needs Nutrition Etiology: Physiological Causes Nutrition Problem/Etiology/Sym: Increased Nutrient Needs related to increased demand for nutrients secondary to wound healing post surgery AEB diagnosis of rectal cancer, recent chemo and radiation therapy, recent surgery increased stress and increased metabolic needs. Energy Requirement: 2200 (Glidden-St Jeor: Actual BW X 1.5) Protein Requirement: 70 (Actual BW Kg X 1.0) Fluid Requirement: 2200 Diet Type: NPO/Meds Only Nutrition Intervention: Incr diet as tolerated Nutrition Monitoring & Eval Nutrition Goals: Eat 75-100% Meal RD Patient Assessment Time: [address] Assessment Type: RD Assessment Patient Nutrition Acuity: 2-Moderate Follow Up Date: September 12, 2017 Nutritional Comment: Pt admitted with Rectal cancer and surgery (resection with colostomy). CEA 2.3, Low RBC,H/H, Alb 3.7, Low Na+/Ca+. Within normal wt range with BMI of 24.0. NPO with meds only at present. Follow labs, clinical progression, and diet changes. JEREMIE PARIKH September 11, 2017 12:30
[2017-09-11 18:14] LABS: PLATELET COUNT, AUTOMATED 267 K/uL (150-450)
[2017-09-11] MEDS: OLANZapine 5 MG TAB PO SCH (21:29)
[2017-09-11] MEDS ORDERED: NS(*) 0.9% 1000 ML BAG 1,000 ML IV PRN (21:29)
[2017-09-12 03:16] VITALS: BP 94/62
[2017-09-12] MEDS: metroNIDAZOLE* 500MG/100ML BAG 100 ML IVPB SCH ×3 (03:16→20:28)
[2017-09-12] MEDS: ACETAMINOPHEN(*)1000 MG/100 ML 100 ML IVPB SCH ×3 (05:18→17:42)
[2017-09-12 06:18] LABS: PLATELET COUNT, AUTOMATED 244 K/uL (150-450)
[2017-09-12 07:29] VITALS: BP 118/60
[2017-09-12] MEDS: PANTOPRAZOLE SOD 40 MG IV VIAL IVP SCH (08:41)
[2017-09-12] MEDS: DIVALPROEX SOD DR 500 MG TAB PO SCH ×2 (08:41→20:29)
[2017-09-12] MEDS ORDERED: ENOXAPARIN 40 MG/0.4ML SYR SC SCH (09:00)
[2017-09-12] MEDS ORDERED: NS(*) 0.9% 1000 ML BAG 1,000 ML IV PRN (09:16)
[2017-09-12] MEDS: LEVOFLOXACIN/D5W*500 MG/100 ML 100 ML IVPB SCH (09:18)
--- NOTE | 2017-09-12 09:29 | General Surgery Progress Note ---
Subjective Progress Notes Subjective No complaints, very sleepy this morning. Physical Exam Vital Signs Date Time Temp Pulse Resp B/P (MAP) Pulse Ox O2 Delivery O2 Flow Rate FiO2 09/12/17 08:44 98.6 09/12/17 07:56 90 Nasal Cannula 6.0 09/12/17 07:52 16 09/12/17 07:29 108 118/60 (79) Intake and Output 09/13/17 07:00 Intake Total 989 ml Output Total 155 ml Balance 834 ml Intake IV Total 989 ml Output Urine Total 100 ml Stool Total 50 ml Drainage Total 5 ml General Appearance: No Acute Distress, Afebrile GI: Other (Soft, appropriate TTP, gas in bag. Dressings are all C/D/I. Sttoma is pink. Drain with decreasing blood.) Extremities: Warm, Perfused Result Diagram: 09/12/17 0553 09/12/17 0553 Assessment and Plan Problems: (1) Rectal cancer Status: Chronic Assessment & Plan: 09/11/17: POD#1 s/p Robotic LAR with colostomy. Doing well so far. Awaiting return of bowel function. Continue bowel rest and IV fluids. Will start lovenox tomorrow if he's hemostatic with stable Hb. IV tylenol and TECHNICAL PLANNER for pain control, will star toradol when H/H stable. Ambulate, IS, pulmonary hygiene, SCDs, PPI. 09/12/17: POD#2. Doing well. Will start clear diet this morning. Stop TECHNICAL PLANNER as he is using it so much that he is sleeping. Will go with intermittent PRN dilaudid, continue IV tylenol. Hold off on lovenox and toradol until H/H stable. Ambulate, IS, pulmonary hygiene, SCDs, PPI. Will need to follow his sodium closely and will restrict his fluid intake to 1.5L/day due to his psychogenic polydipsia. (2) Hyponatremia with decreased serum osmolality Status: Resolved Assessment & Plan: Will follow during postop fluid resuscitation with NS and lower than usual rate. Fluid restriction. (3) Fecal incontinence Status: Resolved Assessment & Plan: Resolved with colostomy (4) Severe manic bipolar 1 disorder with psychotic behavior Status: Chronic (5) OCD (obsessive compulsive disorder) Status: Chronic Condition Stable. Time Spent: < 30 min Exam Sepsis Risk: No Definite Risk Problem Qualifiers (1) Fecal incontinence: Fecal incontinence type: psychogenic incontinence of feces Qualified Codes: F98.1 - Encopresis not due to a substance or known physiological condition (2) OCD (obsessive compulsive disorder): Obsessive-compulsive disorder type: unspecified Qualified Codes: F42.9 - Obsessive-compulsive disorder, unspecified ZACH CLAUDIO MD September 12, 2017 09:29
[2017-09-12 10:51] VITALS: BP 104/50
[2017-09-12] MEDS: HYDROmorphone HCL 2 MG/ML SDV IVP PRN ×3 (11:01→22:28)
--- NOTE | 2017-09-12 12:45 | Medical Nutrition Therapy ---
Nutrition Anthropometrics Height (Inches): 67.00 Height (Calculated Centimeters: 170.462445 Weight (Pounds): 153 Weight (Calculated Kilograms): 69.400 BMI Calculated: 23.96 Sherman Nutrition Score: Adequate Sherman Nutrition Risk Score: 19 Dietary Referral Nutrition Risk Factors: Nutrition Risk Comment: Physical Findings Physical Appearance: WNR Skin Appearance Skin Appearance: Edema Edema Location Modifier: Edema Location: Type of Edema: Degree of Edema: Gastrointestinal Symptoms GI Symtoms: Appetite Changes, Bloating, Change in Bowel Pattern Tube Present: Bowel Sounds: Recent Bowel Pattern: Stool Characteristics: Nutrition/Food History No Significant Nutr. HX Nutritional Diagnosis Nutritional Risk Acuity 2: New Colostomy Nutritional Risk Acuity 3: Cancer Past Medical History: fecal incontinence, severe manic bipolar 1 disorder with psychotic behavior, psychogenic polydipsia, hyponatremia, OCD Nutritional Acuity: 2-Moderate Nutrition Diagnosis: Increased Nutrient Needs Nutrition Etiology: Physiological Causes Nutrition Problem/Etiology/Sym: Increased Nutrient Needs related to increased demand for nutrients secondary to wound healing post surgery AEB diagnosis of rectal cancer, recent chemo and radiation therapy, recent surgery increased stress and increased metabolic needs. Energy Requirement: 2200 ([place]-St Jeor: Actual BW X 1.5) Protein Requirement: 70 (Actual BW Kg X 1.0) Fluid Requirement: 2200 Diet Type: NPO/Meds Only Nutrition Intervention: Incr diet as tolerated Nutrition Monitoring & Eval Nutrition Goals: Eat 75-100% Meal RD Patient Assessment Time: [address] Assessment Type: RD Re-Assessment Patient Nutrition Acuity: 2-Moderate Follow Up Date: September 15, 2017 Nutritional Comment: Pt admitted with Rectal cancer and surgery (resection with colostomy). CEA 2.3, Low RBC,H/H, Alb 3.7, Low Na+/Ca+. Within normal wt range with BMI of 24.0. NPO with meds only at present. Follow labs, clinical progression, and diet changes. -ORTEGA 09/12 POD#2 Pt now starting Fluid restriction diet (1.5L/day) due to psychogenic polydipsia. No reports in intake at present. Low Na+/Ca+. Monitier intake, labs, etc. -JEREMIE GONZALEZ September 12, 2017 12:45
[2017-09-12 15:01] VITALS: BP 114/77
[2017-09-12 19:30] VITALS: BP 115/78
[2017-09-12] MEDS: OLANZapine 5 MG TAB PO SCH (20:28)
[2017-09-13 00:07] VITALS: BP 97/76
[2017-09-13] MEDS: ACETAMINOPHEN(*)1000 MG/100 ML 100 ML IVPB SCH ×2 (00:11→05:44)
[2017-09-13 03:20] VITALS: BP 113/80
[2017-09-13] MEDS: metroNIDAZOLE* 500MG/100ML BAG 100 ML IVPB SCH (04:12)
[2017-09-13 05:56] LABS: PLATELET COUNT, AUTOMATED 238 K/uL (150-450)
[2017-09-13 07:36] VITALS: BP 121/78
--- NOTE | 2017-09-13 08:02 | General Surgery Progress Note ---
Subjective Progress Notes Subjective No complaints this morning. He reports feeling better. Not much pain this morning. Feels hungry. Physical Exam Vital Signs Date Time Temp Pulse Resp B/P (MAP) Pulse Ox O2 Delivery O2 Flow Rate FiO2 09/13/17 07:36 99.0 95 16 121/78 (92) 94 Nasal Cannula 4.5 Intake and Output 09/14/17 07:00 # Voids 1 General Appearance: Alert, Awake, No Acute Distress, Afebrile GI: Soft and Non-Tender (Drain with sanguinous drainage, stoma is pink, gas in bag, no stool yet.) Extremities: Warm, Perfused Result Diagram: 09/13/17 0511 09/13/17 0511 Assessment and Plan Problems: (1) Rectal cancer Status: Chronic Assessment & Plan: 09/11/17: POD#1 s/p Robotic LAR with colostomy. Doing well so far. Awaiting return of bowel function. Continue bowel rest and IV fluids. Will start lovenox tomorrow if he's hemostatic with stable Hb. IV tylenol and FLOOR WINDER for pain control, will star toradol when H/H stable. Ambulate, IS, pulmonary hygiene, SCDs, PPI. 09/12/17: POD#2. Doing well. Will start clear diet this morning. Stop FLOOR WINDER as he is using it so much that he is sleeping. Will go with intermittent PRN dilaudid, continue IV tylenol. Hold off on lovenox and toradol until H/H stable. Ambulate, IS, pulmonary hygiene, SCDs, PPI. Will need to follow his sodium closely and will restrict his fluid intake to 1.5L/day due to his psychogenic polydipsia. 09/13/17: POD#3. Doing well. Will try regular diet today. Convert meds to PO. Stoma teaching. D/C planning for home health nursing and home stoma care. Pt's mother will be the main person caring for his stoma in the long run. Ambulate, IS, pumonary hygiene, SCDs, lovenox, PPI, etc. Continue fluid restriction and follow his sodium. (2) Hyponatremia with decreased serum osmolality Status: Resolved Assessment & Plan: Will follow during postop fluid resuscitation with NS and lower than usual rate. Fluid restriction. (3) Fecal incontinence Status: Resolved Assessment & Plan: Resolved with colostomy (4) Severe manic bipolar 1 disorder with psychotic behavior Status: Chronic (5) OCD (obsessive compulsive disorder) Status: Chronic (6) Psychogenic polydipsia Status: Chronic Condition Stable. Time Spent: < 30 min Exam Sepsis Risk: No Definite Risk Problem Qualifiers (1) Fecal incontinence: Fecal incontinence type: psychogenic incontinence of feces Qualified Codes: F98.1 - Encopresis not due to a substance or known physiological condition (2) OCD (obsessive compulsive disorder): Obsessive-compulsive disorder type: unspecified Qualified Codes: F42.9 - Obsessive-compulsive disorder, unspecified ZACH CLAUDIO MD September 13, 2017 08:02
[2017-09-13] MEDS: DIVALPROEX SOD DR 500 MG TAB PO SCH ×2 (09:00→20:52)
[2017-09-13] MEDS: ENOXAPARIN 40 MG/0.4ML SYR SC SCH (09:00)
[2017-09-13] MEDS: PANTOPRAZOLE SOD 40 MG TABEC PO SCH (09:00)
[2017-09-13 15:07] VITALS: BP 128/78
[2017-09-13] MEDS: HYDROmorphone HCL 2 MG/ML SDV IVP PRN (18:32)
[2017-09-13 19:30] VITALS: BP 131/80
[2017-09-13] MEDS: OLANZapine 5 MG TAB PO SCH (20:51)
[2017-09-14 03:16] VITALS: BP 156/88
[2017-09-14 05:46] LABS: PLATELET COUNT, AUTOMATED 230 K/uL (150-450)
[2017-09-14 08:00] VITALS: BP 130/83
--- NOTE | 2017-09-14 08:01 | General Surgery Progress Note ---
Subjective Progress Notes Subjective No complaints. Physical Exam Vital Signs Date Time Temp Pulse Resp B/P (MAP) Pulse Ox O2 Delivery O2 Flow Rate FiO2 09/14/17 03:16 98.6 114 15 156/88 (110) 91 Nasal Cannula 1.0 Intake and Output 09/15/17 07:00 # Voids 1 General Appearance: Alert, Awake, No Acute Distress, Afebrile GI: Soft and Non-Tender (DAQUAN drain removed) Extremities: Warm, Perfused Result Diagram: 09/14/1751309/14/17513 Assessment and Plan Problems: (1) Rectal cancer Status: Chronic Assessment & Plan: 09/11/17: POD#1 s/p Robotic LAR with colostomy. Doing well so far. Awaiting return of bowel function. Continue bowel rest and IV fluids. Will start lovenox tomorrow if he's hemostatic with stable Hb. IV tylenol and PROFILE SAW OPERATOR for pain control, will star toradol when H/H stable. Ambulate, IS, pulmonary hygiene, SCDs, PPI. 09/12/17: POD#2. Doing well. Will start clear diet this morning. Stop PROFILE SAW OPERATOR as he is using it so much that he is sleeping. Will go with intermittent PRN dilaudid, continue IV tylenol. Hold off on lovenox and toradol until H/H stable. Ambulate, IS, pulmonary hygiene, SCDs, PPI. Will need to follow his sodium closely and will restrict his fluid intake to 1.5L/day due to his psychogenic polydipsia. 09/13/17: POD#3. Doing well. Will try regular diet today. Convert meds to PO. Stoma teaching. D/C planning for home health nursing and home stoma care. Pt's mother will be the main person caring for his stoma in the long run. Ambulate, IS, pumonary hygiene, SCDs, lovenox, PPI, etc. Continue fluid restriction and follow his sodium. 09/14/17: POD#4. Doing well. Tolerating regular diet and PO meds. Will need to continue stoma teaching and d/c planning. Pt's mother is now exhibiting some resistance to caring for the stoma so will need to work on this. O/W, CCM. (2) Hyponatremia with decreased serum osmolality Status: Resolved Assessment & Plan: Will follow during postop fluid resuscitation with NS and lower than usual rate. Fluid restriction. (3) Fecal incontinence Status: Resolved Assessment & Plan: Resolved with colostomy (4) Severe manic bipolar 1 disorder with psychotic behavior Status: Chronic (5) OCD (obsessive compulsive disorder) Status: Chronic (6) Psychogenic polydipsia Status: Chronic Condition Stable. Time Spent: < 30 min Exam Sepsis Risk: No Definite Risk Problem Qualifiers (1) Fecal incontinence: Fecal incontinence type: psychogenic incontinence of feces Qualified Codes: F98.1 - Encopresis not due to a substance or known physiological condition (2) OCD (obsessive compulsive disorder): Obsessive-compulsive disorder type: unspecified Qualified Codes: F42.9 - Obsessive-compulsive disorder, unspecified ZACH CLAUDIO MD September 14, 2017 08:01
[2017-09-14] MEDS: PANTOPRAZOLE SOD 40 MG TABEC PO SCH (08:48)
[2017-09-14] MEDS: ENOXAPARIN 40 MG/0.4ML SYR SC SCH (08:48)
[2017-09-14] MEDS: DIVALPROEX SOD DR 500 MG TAB PO SCH ×2 (08:48→21:26)
[2017-09-14 11:07] VITALS: BP 129/86
[2017-09-14 15:19] VITALS: BP 114/71
[2017-09-14 19:16] VITALS: BP 107/88
[2017-09-14] MEDS: OLANZapine 5 MG TAB PO SCH (21:26)
[2017-09-15 00:25] VITALS: BP 140/85
[2017-09-15 02:53] VITALS: BP 151/89
--- NOTE | 2017-09-15 06:54 | General Surgery Progress Note ---
Subjective Progress Notes Subjective No complaints. Not much abdominal pain. Urinating a lot. Physical Exam Vital Signs Date Time Temp Pulse Resp B/P (MAP) Pulse Ox O2 Delivery O2 Flow Rate FiO2 09/15/17 02:53 99.4 110 18 151/89 (109) 87 Room Air 09/15/17 00:25 2.0 General Appearance: Alert, Awake, No Acute Distress, Afebrile GI: Soft and Non-Tender (Stoma is pink and functional, incisions look good, no erythema or drainage.) Extremities: Warm, Perfused Result Diagram: 09/14/1751309/14/17 05 Assessment and Plan Problems: (1) Rectal cancer Status: Chronic Assessment & Plan: 09/11/17: POD#1 s/p Robotic LAR with colostomy. Doing well so far. Awaiting return of bowel function. Continue bowel rest and IV fluids. Will start lovenox tomorrow if he's hemostatic with stable Hb. IV tylenol and CMM TECHNICIAN for pain control, will star toradol when H/H stable. Ambulate, IS, pulmonary hygiene, SCDs, PPI. 09/12/17: POD#2. Doing well. Will start clear diet this morning. Stop CMM TECHNICIAN as he is using it so much that he is sleeping. Will go with intermittent PRN dilaudid, continue IV tylenol. Hold off on lovenox and toradol until H/H stable. Ambulate, IS, pulmonary hygiene, SCDs, PPI. Will need to follow his sodium closely and will restrict his fluid intake to 1.5L/day due to his psychogenic polydipsia. 09/13/17: POD#3. Doing well. Will try regular diet today. Convert meds to PO. Stoma teaching. D/C planning for home health nursing and home stoma care. Pt's mother will be the main person caring for his stoma in the long run. Ambulate, IS, pumonary hygiene, SCDs, lovenox, PPI, etc. Continue fluid restriction and follow his sodium. 09/14/17: POD#4. Doing well. Tolerating regular diet and PO meds. Will need to continue stoma teaching and d/c planning. Pt's mother is now exhibiting some resistance to caring for the stoma so will need to work on this. O/W, CCM. 09/15/17: POD#5. Doing fairly well but having recurring low grade fevers. Will check urine for infection given polyuria and recent Wood, and CXR given smoker. May need abdominal CT if fevers continue and no source is identified in lungs or urinary system. Pt's mother is on board with stoma care but wishes her son could participate more. Home health care is arrange for whenever he's ready for discharge. (2) Hyponatremia with decreased serum osmolality Status: Resolved Assessment & Plan: Will follow during postop fluid resuscitation with NS and lower than usual rate. Fluid restriction. (3) Fecal incontinence Status: Resolved Assessment & Plan: Resolved with colostomy (4) Severe manic bipolar 1 disorder with psychotic behavior Status: Chronic (5) OCD (obsessive compulsive disorder) Status: Chronic (6) Psychogenic polydipsia Status: Chronic Condition Stable. Time Spent: < 30 min Exam Sepsis Risk: No Definite Risk Problem Qualifiers (1) Fecal incontinence: Fecal incontinence type: psychogenic incontinence of feces Qualified Codes: F98.1 - Encopresis not due to a substance or known physiological condition (2) OCD (obsessive compulsive disorder): Obsessive-compulsive disorder type: unspecified Qualified Codes: F42.9 - Obsessive-compulsive disorder, unspecified ZACH CLAUDIO MD September 15, 2017 06:54
[2017-09-15 07:21] LABS: PLATELET COUNT, AUTOMATED 277 K/uL (150-450)
[2017-09-15 07:22] VITALS: BP 149/95
[2017-09-15] MEDS: ENOXAPARIN 40 MG/0.4ML SYR SC SCH (08:17)
[2017-09-15] MEDS: DIVALPROEX SOD DR 500 MG TAB PO SCH ×2 (08:17→20:28)
[2017-09-15] MEDS: PANTOPRAZOLE SOD 40 MG TABEC PO SCH (08:17)
--- NOTE | 2017-09-15 10:06 | RADIOLOGY IMAGING REPORT ---
FACILITY: [facility] PATIENT NAME: Matthew Roth : 1960 MR: [id number] V: [id number] EXAM DATE: ORDERING PHYSICIAN: ZACH CLAUDIO TECHNOLOGIST: Location: [facility] - [place] Patient: Matthew Roth : 1960 Visit/Account:[id number] Date of Sevice: 09/15/2017 Chest with lateral, two views. HISTORY: Postop fever. COMPARISON: None. Patchy airspace and interstitial infiltrates are scattered in both lungs most prominent in the perihi lar regions and right midlung. The heart and mediastinum are unremarkable. Pulmonary vessels are ot herwise unremarkable. The pleural surfaces are unremarkable. No pneumothorax. Several mild chronic appearing wedge deformities are present in the spine. Mild degenerative changes are present in the s pine and shoulders. IMPRESSION: Bilateral lung infiltrates consistent with pneumonia. Other etiologies are not excluded. Follow-up radiographs might be considered to document complete resolution. Report Dictated By: Howard Lockwood MD at 09/15/2017 9:59 AM Report E-Signed By: Howard Lockwood MD at 09/15/2017 10:03 AM WSN:[email or web address]
[2017-09-15] MEDS: IBUPROFEN 600 MG TAB PO PRN ×2 (10:56→17:30)
[2017-09-15 10:58] VITALS: BP 123/92
--- NOTE | 2017-09-15 12:26 | Hospitalist Progress Note ---
Subjective Progress Notes Subjective Patient had rectal/sigmoid colectomy with ostomy formation 09/10/17. He was noted to have modest hypoxia and intermittent low grade fevers. WBC count has remained normal. Patient reports some cough and occasional dyspnea. He has also noted some feverish sensations. CXR shows bilateral infiltrates R>L. Reviewed PMHx and medications. Physical Exam Vital Signs Date Time Temp Pulse Resp B/P (MAP) Pulse Ox O2 Delivery O2 Flow Rate FiO2 09/15/17 10:58 98.6 16 123/92 (102) 92 Nasal Cannula 2.0 09/15/17 07:22 102 Intake and Output 09/16/17 07:00 Intake Total 220 ml Balance 220 ml Intake Oral 220 ml # Voids 3 General Appearance: Alert, Awake, Other (Flat affect/he wears sunglasses inside ) Cardiovascular: Regular Rate and Rhythm, No Edema Respiratory: Other (few rales at right base/no wheezes) Chest: No Tenderness GI: Other (ostomy LLQ) Extremities: Warm, Perfused Result Diagram: 09/15/17 0712 09/15/17 0712 Assessment and Plan Problems: (1) Pneumonia Status: Acute Assessment & Plan: Hospital associated. He does appear fairly stable. Will place him on IV cefepime 2gm q12hrs. Give supplemental oxygen as needed. Will need to work on pulmonary toilet as well. Encouraged him to be out of bed as much as possible as well as work with the incentive spirometer. (2) OCD (obsessive compulsive disorder) Status: Chronic Assessment & Plan: He is on his usual regimen with olanzapine and Depakote. Exam Sepsis Risk: No Definite Risk Problem Qualifiers (1) OCD (obsessive compulsive disorder): Obsessive-compulsive disorder type: unspecified Qualified Codes: F42.9 - Obsessive-compulsive disorder, unspecified ELKE REES MD September 15, 2017 12:26
[2017-09-15] MEDS ORDERED: CEFEPIME HCL 2 GM VIAL IVP SCH (12:30)
[2017-09-15] MEDS: CEFEPIME HCL 2 GM VIAL 2 GM in NS(*) 0.9% 100 ML BAG 100 ML IVPB SCH (12:57)
--- NOTE | 2017-09-15 14:56 | Medical Nutrition Therapy ---
Nutrition Anthropometrics Height (Inches): 67.00 Height (Calculated Centimeters: 170.720297 Weight (Pounds): 153 Weight (Calculated Kilograms): 69.400 BMI Calculated: 23.96 Sherman Nutrition Score: Probably Inadequate Sherman Nutrition Risk Score: 17 Dietary Referral Nutrition Risk Factors: Nutrition Risk Comment: Physical Findings Physical Appearance: WNR Skin Appearance Skin Appearance: Edema Edema Location Modifier: Edema Location: Type of Edema: Degree of Edema: Gastrointestinal Symptoms GI Symtoms: Appetite Changes, Change in Bowel Pattern Tube Present: Bowel Sounds: Recent Bowel Pattern: Stool Characteristics: Nutritional Diagnosis Nutritional Risk Acuity 2: New Colostomy Nutritional Risk Acuity 3: Cancer Past Medical History: fecal incontinence, severe manic bipolar 1 disorder with psychotic behavior, psychogenic polydipsia, hyponatremia, OCD Nutritional Acuity: 2-Moderate Nutrition Diagnosis: Increased Nutrient Needs Nutrition Etiology: Physiological Causes Nutrition Problem/Etiology/Sym: Increased Nutrient Needs related to increased demand for nutrients secondary to wound healing post surgery AEB diagnosis of rectal cancer, recent chemo and radiation therapy, recent surgery increased stress and increased metabolic needs. Energy Requirement: 2200 ([place]-St Jeor: Actual BW X 1.5) Protein Requirement: 70 (Actual BW Kg X 1.0) Fluid Requirement: 2200 Diet Type: NPO/Meds Only Nutrition Intervention: Incr diet as tolerated Nutrition Monitoring & Eval Nutrition Goals: Fluid Restrictions RD Patient Assessment Time: [address] Assessment Type: RD Re-Assessment Patient Nutrition Acuity: 2-Moderate Follow Up Date: September 18, 2017 Nutritional Comment: Pt admitted with Rectal cancer and surgery (resection with colostomy). CEA 2.3, Low RBC,H/H, Alb 3.7, Low Na+/Ca+. Within normal wt range with BMI of 24.0. NPO with meds only at present. Follow labs, clinical progression, and diet changes. -DRT 09/12 POD#2 Pt now starting Fluid restriction diet (1.5L/day) due to psychogenic polydipsia. No reports in intake at present. Low Na+/Ca+. Monitier intake, labs, etc. -DRT 09/15 Pt is tolerating PABLO/RED diet with oral intake of 100%. Pt continues on fluid restriction and monitoring Na intake. Pt is no longer experience abdominal pain and is urinating more frequent. Pt has low BUN and Na/Ca+. Provide information on new colostomy. Continue to monitor pt progress, labs and encourage intake. DAVID VELEZ September 15, 2017 10:57
[2017-09-15 15:48] VITALS: BP 115/78
[2017-09-15 19:46] VITALS: BP 110/79
[2017-09-15] MEDS: OLANZapine 5 MG TAB PO SCH (20:28)
[2017-09-16] VITALS (7 sets, daily range): BP systolic 113–149; BP diastolic 76–91
[2017-09-16] MEDS: CEFEPIME HCL 2 GM VIAL 2 GM in NS(*) 0.9% 100 ML BAG 100 ML IVPB SCH ×2 (00:41→12:12)
[2017-09-16 06:13] LABS: PLATELET COUNT, AUTOMATED 306 K/uL (150-450)
--- NOTE | 2017-09-16 07:16 | General Surgery Progress Note ---
Subjective Progress Notes Subjective No complaints. Physical Exam Vital Signs Date Time Temp Pulse Resp B/P (MAP) Pulse Ox O2 Delivery O2 Flow Rate FiO2 09/16/17 03:02 99.1 99 16 142/88 (106) 92 Nasal Cannula 1.0 General Appearance: Alert, Awake, No Acute Distress, Afebrile GI: Soft and Non-Tender (Stoma is pink and functional, incisions look good without erythema or drainage.) Extremities: Warm, Perfused Result Diagram: 09/16/17 0528 09/16/17 0528 Assessment and Plan Problems: (1) Rectal cancer Status: Chronic Assessment & Plan: 09/11/17: POD#1 s/p Robotic LAR with colostomy. Doing well so far. Awaiting return of bowel function. Continue bowel rest and IV fluids. Will start lovenox tomorrow if he's hemostatic with stable Hb. IV tylenol and NEWSPERSON for pain control, will star toradol when H/H stable. Ambulate, IS, pulmonary hygiene, SCDs, PPI. 09/12/17: POD#2. Doing well. Will start clear diet this morning. Stop NEWSPERSON as he is using it so much that he is sleeping. Will go with intermittent PRN dilaudid, continue IV tylenol. Hold off on lovenox and toradol until H/H stable. Ambulate, IS, pulmonary hygiene, SCDs, PPI. Will need to follow his sodium closely and will restrict his fluid intake to 1.5L/day due to his psychogenic polydipsia. 09/13/17: POD#3. Doing well. Will try regular diet today. Convert meds to PO. Stoma teaching. D/C planning for home health nursing and home stoma care. Pt's mother will be the main person caring for his stoma in the long run. Ambulate, IS, pumonary hygiene, SCDs, lovenox, PPI, etc. Continue fluid restriction and follow his sodium. 09/14/17: POD#4. Doing well. Tolerating regular diet and PO meds. Will need to continue stoma teaching and d/c planning. Pt's mother is now exhibiting some resistance to caring for the stoma so will need to work on this. O/W, CCM. 09/15/17: POD#5. Doing fairly well but having recurring low grade fevers. Will check urine for infection given polyuria and recent Wood, and CXR given smoker. May need abdominal CT if fevers continue and no source is identified in lungs or urinary system. Pt's mother is on board with stoma care but wishes her son could participate more. Home health care is arrange for whenever he's ready for discharge. 09/16/17: POD#6. Doing well but has developed pneumonia and so started on IV abx by hospitalists. Fevers improving. Abdominal exam is benign, incisions and stoma all look good. Tolerating regular diet. Hopeful for d/c to home tomorrow. (2) Hyponatremia with decreased serum osmolality Status: Resolved Assessment & Plan: Will follow during postop fluid resuscitation with NS and lower than usual rate. Fluid restriction. (3) Fecal incontinence Status: Resolved Assessment & Plan: Resolved with colostomy (4) Severe manic bipolar 1 disorder with psychotic behavior Status: Chronic (5) OCD (obsessive compulsive disorder) Status: Chronic (6) Psychogenic polydipsia Status: Chronic Condition Stable. Time Spent: < 30 min Exam Sepsis Risk: No Definite Risk Problem Qualifiers (1) Fecal incontinence: Fecal incontinence type: psychogenic incontinence of feces Qualified Codes: F98.1 - Encopresis not due to a substance or known physiological condition (2) OCD (obsessive compulsive disorder): Obsessive-compulsive disorder type: unspecified Qualified Codes: F42.9 - Obsessive-compulsive disorder, unspecified ZACH CLAUDIO MD September 16, 2017 07:16
[2017-09-16] MEDS: DIVALPROEX SOD DR 500 MG TAB PO SCH ×2 (09:31→20:24)
[2017-09-16] MEDS: PANTOPRAZOLE SOD 40 MG TABEC PO SCH (09:31)
[2017-09-16] MEDS: ENOXAPARIN 40 MG/0.4ML SYR SC SCH (09:32)
--- NOTE | 2017-09-16 12:00 | Hospitalist Progress Note ---
Subjective Progress Notes Subjective This patient was admitted for bowel resection. He had no acute events overnight. Patient Complains of: Cardiovascular: No: Chest Pain Respiratory: No: Shortness of Breath Physical Exam Vital Signs Date Time Temp Pulse Resp B/P (MAP) Pulse Ox O2 Delivery O2 Flow Rate FiO2 09/16/17 11:10 100.1 96 16 126/79 (95) 89 Room Air 09/16/17 07:36 1.0 Intake and Output 09/17/17 07:00 Output Total 50 ml Balance -50 ml Output Urine Total 50 ml # Voids 1 Cardiovascular: Regular Rate and Rhythm Respiratory: Clear to Auscultation Result Diagram: 09/16/1752709/16/17527 Assessment and Plan Problems: (1) Pneumonia Status: Acute Assessment & Plan: He was started on cefepime on 09/15 after being found to have a fever and bilateral pulmonary infiltrates. His temperature curve is decreasing and his WBC remains normal. Cultures are not available. (2) OCD (obsessive compulsive disorder) Status: Chronic Assessment & Plan: He is on his usual regimen with olanzapine and Depakote. Exam Sepsis Risk: Sepsis Risk Problem Qualifiers (1) Pneumonia: Pneumonia type: due to unspecified organism (2) OCD (obsessive compulsive disorder): Obsessive-compulsive disorder type: unspecified Qualified Codes: F42.9 - Obsessive-compulsive disorder, unspecified ZACH ROCK DO September 16, 2017 12:00
[2017-09-16] MEDS: IBUPROFEN 600 MG TAB PO PRN (14:01)
[2017-09-16] MEDS: OLANZapine 5 MG TAB PO SCH (20:24)
[2017-09-17] MEDS: CEFEPIME HCL 2 GM VIAL 2 GM in NS(*) 0.9% 100 ML BAG 100 ML IVPB SCH ×3 (00:39→23:59)
[2017-09-17] MEDS ORDERED: NS(*) 0.9% 250 ML BAG 250 ML ONE (00:39)
[2017-09-17 02:50] VITALS: BP 120/80
[2017-09-17] MEDS: IBUPROFEN 600 MG TAB PO PRN ×2 (05:29→19:22)
--- NOTE | 2017-09-17 06:28 | General Surgery Progress Note ---
Subjective Progress Notes Subjective "I feel warm." No abdominal pain. No other complaints this morning. Physical Exam Vital Signs Date Time Temp Pulse Resp B/P (MAP) Pulse Ox O2 Delivery O2 Flow Rate FiO2 09/17/17 05:44 99.5 09/17/17 02:50 88 20 120/80 (93) 90 Nasal Cannula 1.0 General Appearance: Alert, Awake, No Acute Distress, Afebrile GI: Soft and Non-Tender (Incisions all look good without erythema or drainage. Stoma is pink with gas and liquid stool in bag.) Extremities: Warm, Perfused Result Diagram: 09/16/1752709/16/17527 Assessment and Plan Problems: (1) Rectal cancer Status: Chronic Assessment & Plan: 09/11/17: POD#1 s/p Robotic LAR with colostomy. Doing well so far. Awaiting return of bowel function. Continue bowel rest and IV fluids. Will start lovenox tomorrow if he's hemostatic with stable Hb. IV tylenol and SENIOR OFFICE ASSISTANT for pain control, will star toradol when H/H stable. Ambulate, IS, pulmonary hygiene, SCDs, PPI. 09/12/17: POD#2. Doing well. Will start clear diet this morning. Stop SENIOR OFFICE ASSISTANT as he is using it so much that he is sleeping. Will go with intermittent PRN dilaudid, continue IV tylenol. Hold off on lovenox and toradol until H/H stable. Ambulate, IS, pulmonary hygiene, SCDs, PPI. Will need to follow his sodium closely and will restrict his fluid intake to 1.5L/day due to his psychogenic polydipsia. 09/13/17: POD#3. Doing well. Will try regular diet today. Convert meds to PO. Stoma teaching. D/C planning for home health nursing and home stoma care. Pt's mother will be the main person caring for his stoma in the long run. Ambulate, IS, pumonary hygiene, SCDs, lovenox, PPI, etc. Continue fluid restriction and follow his sodium. 09/14/17: POD#4. Doing well. Tolerating regular diet and PO meds. Will need to continue stoma teaching and d/c planning. Pt's mother is now exhibiting some resistance to caring for the stoma so will need to work on this. O/W, CCM. 09/15/17: POD#5. Doing fairly well but having recurring low grade fevers. Will check urine for infection given polyuria and recent Wood, and CXR given smoker. May need abdominal CT if fevers continue and no source is identified in lungs or urinary system. Pt's mother is on board with stoma care but wishes her son could participate more. Home health care is arrange for whenever he's ready for discharge. 09/16/17: POD#6. Doing well but has developed pneumonia and so started on IV abx by hospitalists. Fevers improving. Abdominal exam is benign, incisions and stoma all look good. Tolerating regular diet. Hopeful for d/c to home tomorrow. 09/17/17: POD#7. Doing well but still with intermittent fevers. Abdominal exam is benign. Hospitalists have him on IV abx for pneumonia. Tolerating diet but not eating too much. Stoma is functioning and looks healthy. He can go home when fevers resolve. (2) Hyponatremia with decreased serum osmolality Status: Resolved Assessment & Plan: Will follow during postop fluid resuscitation with NS and lower than usual rate. Fluid restriction. (3) Fecal incontinence Status: Resolved Assessment & Plan: Resolved with colostomy (4) Severe manic bipolar 1 disorder with psychotic behavior Status: Chronic (5) OCD (obsessive compulsive disorder) Status: Chronic (6) Psychogenic polydipsia Status: Chronic Condition Stable. Time Spent: < 30 min Exam Sepsis Risk: No Definite Risk Problem Qualifiers (1) Fecal incontinence: Fecal incontinence type: psychogenic incontinence of feces Qualified Codes: F98.1 - Encopresis not due to a substance or known physiological condition (2) OCD (obsessive compulsive disorder): Obsessive-compulsive disorder type: unspecified Qualified Codes: F42.9 - Obsessive-compulsive disorder, unspecified ZACH CLAUDIO MD September 17, 2017 06:28
[2017-09-17 06:47] LABS: PLATELET COUNT, AUTOMATED 382 K/uL (150-450)
[2017-09-17 07:24] VITALS: BP 132/79
[2017-09-17] MEDS: DIVALPROEX SOD DR 500 MG TAB PO SCH ×2 (08:21→20:20)
[2017-09-17] MEDS: PANTOPRAZOLE SOD 40 MG TABEC PO SCH (08:22)
[2017-09-17] MEDS: ENOXAPARIN 40 MG/0.4ML SYR SC SCH (08:24)
--- NOTE | 2017-09-17 11:43 | Hospitalist Progress Note ---
Subjective Progress Notes Subjective He denies any concerns this morning. He had no acute events overnight. Patient Complains of: Cardiovascular: No: Chest Pain Respiratory: No: Shortness of Breath Physical Exam Vital Signs Date Time Temp Pulse Resp B/P (MAP) Pulse Ox O2 Delivery O2 Flow Rate FiO2 09/17/17 07:27 91 Nasal Cannula 1.0 09/17/17 07:24 98.9 76 18 132/79 (96) Intake and Output 09/18/17 01:00 Intake Total 0 ml Output Total 315 ml Balance -315 ml Intake Oral 0 ml Output Urine Total 290 ml Stool Total 25 ml # Voids 10 # Bowel Movements 1 General Appearance: Alert, Awake, No Acute Distress, Afebrile Neuro: No Gross deficits Cardiovascular: Regular Rate and Rhythm Respiratory: No Respiratory Distress, Other (diminished in bilateral bases) GI: Soft and Non-Tender Psych: Alert & Oriented X3, Appropriate Mood & Affect Result Diagram: 09/17/17 0640 09/17/17 0640 Assessment and Plan Problems: (1) Pneumonia Status: Acute Assessment & Plan: He was started on cefepime on 09/15 after being found to have a fever and bilateral pulmonary infiltrates. His temperature curve is decreasing and his WBC remains normal. Cultures are not available. (2) OCD (obsessive compulsive disorder) Status: Chronic Assessment & Plan: He is on his usual regimen with olanzapine and Depakote. Exam Sepsis Risk: No Definite Risk Problem Qualifiers (1) Pneumonia: Pneumonia type: due to unspecified organism (2) OCD (obsessive compulsive disorder): Obsessive-compulsive disorder type: unspecified Qualified Codes: F42.9 - Obsessive-compulsive disorder, unspecified AIDEN KAUR [facility] September 17, 2017 11:43
[2017-09-17 12:11] VITALS: BP 125/79
--- NOTE | 2017-09-17 13:48 | Medical Nutrition Therapy ---
Nutrition Anthropometrics Height (Inches): 67.00 Height (Calculated Centimeters: 170.469382 Weight (Pounds): 153 Weight (Calculated Kilograms): 69.400 Sherman Nutrition Score: Probably Inadequate Sherman Nutrition Risk Score: 17 Dietary Referral Nutrition Risk Factors: Nutrition Risk Comment: Physical Findings Physical Appearance: WNR Skin Appearance Skin Appearance: Edema Edema Location Modifier: Edema Location: Type of Edema: Degree of Edema: Gastrointestinal Symptoms GI Symtoms: Change in Bowel Pattern Tube Present: Bowel Sounds: Recent Bowel Pattern: Stool Characteristics: Nutritional Diagnosis Nutritional Risk Acuity 2: New Colostomy Nutritional Risk Acuity 3: Cancer Past Medical History: fecal incontinence, severe manic bipolar 1 disorder with psychotic behavior, psychogenic polydipsia, hyponatremia, OCD Nutritional Acuity: 2-Moderate Nutrition Diagnosis: Increased Nutrient Needs Nutrition Etiology: Physiological Causes Nutrition Problem/Etiology/Sym: Increased Nutrient Needs related to increased demand for nutrients secondary to wound healing post surgery AEB diagnosis of rectal cancer, recent chemo and radiation therapy, recent surgery increased stress and increased metabolic needs. Energy Requirement: 2200 (Tabor-St Jeor: Actual BW X 1.5) Protein Requirement: 70 (Actual BW Kg X 1.0) Fluid Requirement: 2200 Diet Type: Diet as Tolerated PABLO/REG Nutrition Intervention: Cont diet as ordered, Incr diet as tolerated Nutritional Education Nutrition Education Topic: Other (Nutrtion and colostomy) Learning Readiness: Interested (mother who fixes foods), Not Interested (pt not feeling well) Response to Teaching: Verbalize understanding (mother) Nutrition Counseling: Pt in darkened room with dark glasses provided consent to review diet with mother. Mother states she fixes all meals. Mother verbalized understanding. Pt and mother informed to contact RD if further questions. Reviewed foods that can cause blockage, diarrhea, gassy, and those that can help with formed stools. Encouraged them to individulize diet to pt's food tolerances. Nutrition Monitoring & Eval RD Patient Assessment Time: [address] Assessment Type: RD Education Patient Nutrition Acuity: 2-Moderate Follow Up Date: September 22, 2017 Nutritional Comment: Pt admitted with Rectal cancer and surgery (resection with colostomy). CEA 2.3, Low RBC,H/H, Alb 3.7, Low Na+/Ca+. Within normal wt range with BMI of 24.0. NPO with meds only at present. Follow labs, clinical progression, and diet changes. -DRT 09/12 POD#2 Pt now starting Fluid restriction diet (1.5L/day) due to psychogenic polydipsia. No reports in intake at present. Low Na+/Ca+. Monitier intake, labs, etc. -DRT 09/15 Pt is tolerating PABLO/RED diet with oral intake of 100%. Pt continues on fluid restriction and monitoring Na intake. Pt is no longer experience abdominal pain and is urinating more frequent. Pt has low BUN and Na/Ca+. Provide information on new colostomy. Continue to monitor pt progress, labs and encourage intake. MT 09/17 Pt on regular diet and intake averaging 68%. alb 3.7. Provided education on diet with colostomy. Will cont to monitor and encourage intake. JOE AGUAYO September 17, 2017 13:48
[2017-09-17 15:10] VITALS: BP 146/88
[2017-09-17 19:10] VITALS: BP 162/82
[2017-09-17] MEDS: OLANZapine 5 MG TAB PO SCH (20:19)
[2017-09-18] VITALS (7 sets, daily range): BP systolic 107–141; BP diastolic 78–89
[2017-09-18] MEDS: IBUPROFEN 600 MG TAB PO PRN (03:06)
[2017-09-18 06:37] LABS: PLATELET COUNT, AUTOMATED 477 K/uL (150-450)
[2017-09-18] MEDS: PANTOPRAZOLE SOD 40 MG TABEC PO SCH (09:23)
[2017-09-18] MEDS: DIVALPROEX SOD DR 500 MG TAB PO SCH ×2 (09:24→20:47)
[2017-09-18] MEDS: ENOXAPARIN 40 MG/0.4ML SYR SC SCH (09:24)
--- NOTE | 2017-09-18 09:42 | General Surgery Progress Note ---
Subjective Progress Notes Subjective No new complaints Physical Exam Vital Signs Date Time Temp Pulse Resp B/P (MAP) Pulse Ox O2 Delivery O2 Flow Rate FiO2 09/18/17 06:57 99.2 75 20 137/81 (99) 91 Room Air 09/17/17 07:27 1.0 Intake and Output 09/19/17 07:00 # Voids 1 # Bowel Movements 1 General Appearance: No Acute Distress, Other (TMax 99.5) ENT: Moist Mucous Membranes Cardiovascular: Regular Rate and Rhythm Respiratory: No Respiratory Distress, Clear to Auscultation GI: Soft and Non-Tender Extremities: Soft and Non Tender Result Diagram: 09/18/1761909/18/17619 Assessment and Plan Problems: (1) Rectal cancer Status: Chronic Assessment & Plan: 09/11/17: POD#1 s/p Robotic LAR with colostomy. Doing well so far. Awaiting return of bowel function. Continue bowel rest and IV fluids. Will start lovenox tomorrow if he's hemostatic with stable Hb. IV tylenol and MARKETING ADMINISTRATOR for pain control, will star toradol when H/H stable. Ambulate, IS, pulmonary hygiene, SCDs, PPI. 09/12/17: POD#2. Doing well. Will start clear diet this morning. Stop MARKETING ADMINISTRATOR as he is using it so much that he is sleeping. Will go with intermittent PRN dilaudid, continue IV tylenol. Hold off on lovenox and toradol until H/H stable. Ambulate, IS, pulmonary hygiene, SCDs, PPI. Will need to follow his sodium closely and will restrict his fluid intake to 1.5L/day due to his psychogenic polydipsia. 09/13/17: POD#3. Doing well. Will try regular diet today. Convert meds to PO. Stoma teaching. D/C planning for home health nursing and home stoma care. Pt's mother will be the main person caring for his stoma in the long run. Ambulate, IS, pumonary hygiene, SCDs, lovenox, PPI, etc. Continue fluid restriction and follow his sodium. 09/14/17: POD#4. Doing well. Tolerating regular diet and PO meds. Will need to continue stoma teaching and d/c planning. Pt's mother is now exhibiting some resistance to caring for the stoma so will need to work on this. O/W, CCM. 09/15/17: POD#5. Doing fairly well but having recurring low grade fevers. Will check urine for infection given polyuria and recent Wood, and CXR given smoker. May need abdominal CT if fevers continue and no source is identified in lungs or urinary system. Pt's mother is on board with stoma care but wishes her son could participate more. Home health care is arrange for whenever he's ready for discharge. 09/16/17: POD#6. Doing well but has developed pneumonia and so started on IV abx by hospitalists. Fevers improving. Abdominal exam is benign, incisions and stoma all look good. Tolerating regular diet. Hopeful for d/c to home tomorrow. 09/17/17: POD#7. Doing well but still with intermittent fevers. Abdominal exam is benign. Hospitalists have him on IV abx for pneumonia. Tolerating diet but not eating too much. Stoma is functioning and looks healthy. He can go home when fevers resolve. 09/18/17: POD#8. Continues to slowly improve. Tmax past 24 hours 99.5. WBC remains normal. Abdomen benign. Incisions healing without evidence of infection. Tolerating PO. Stoma functioning. DC home tomorrow am if temp remains down. (2) Hyponatremia with decreased serum osmolality Status: Resolved Assessment & Plan: Will follow during postop fluid resuscitation with NS and lower than usual rate. Fluid restriction. (3) Fecal incontinence Status: Resolved Assessment & Plan: Resolved with colostomy (4) Severe manic bipolar 1 disorder with psychotic behavior Status: Chronic (5) OCD (obsessive compulsive disorder) Status: Chronic (6) Psychogenic polydipsia Status: Chronic Exam Sepsis Risk: No Definite Risk Problem Qualifiers (1) Fecal incontinence: Fecal incontinence type: psychogenic incontinence of feces Qualified Codes: F98.1 - Encopresis not due to a substance or known physiological condition (2) OCD (obsessive compulsive disorder): Obsessive-compulsive disorder type: unspecified Qualified Codes: F42.9 - Obsessive-compulsive disorder, unspecified ELIAZAR TENORIO MD September 18, 2017 09:42
--- NOTE | 2017-09-18 11:16 | Hospitalist Progress Note ---
Subjective Progress Notes Subjective This patient was admitted for colon surgery, but developed pneumonia. He had no acute events overnight. Patient Complains of: Cardiovascular: No: Chest Pain Respiratory: No: Shortness of Breath Physical Exam Vital Signs Date Time Temp Pulse Resp B/P (MAP) Pulse Ox O2 Delivery O2 Flow Rate FiO2 09/18/17 10:57 98.0 88 22 141/83 (102) 92 Room Air 09/17/17 07:27 1.0 Intake and Output 09/19/17 07:00 Intake Total 520 ml Balance 520 ml Intake Oral 520 ml # Voids 2 # Bowel Movements 1 Cardiovascular: Regular Rate and Rhythm Respiratory: Clear to Auscultation Result Diagram: 09/18/1761909/18/17619 Assessment and Plan Problems: (1) Pneumonia Status: Acute Assessment & Plan: He was started on cefepime on 09/15 after being found to have a fever and bilateral pulmonary infiltrates. His fever has now resolved. He can likely be converted to oral cefdinir tomorrow. (2) OCD (obsessive compulsive disorder) Status: Chronic Assessment & Plan: He is on his usual regimen with olanzapine and Depakote. Exam Sepsis Risk: No Definite Risk Problem Qualifiers (1) Pneumonia: Pneumonia type: due to unspecified organism (2) OCD (obsessive compulsive disorder): Obsessive-compulsive disorder type: unspecified Qualified Codes: F42.9 - Obsessive-compulsive disorder, unspecified ZACH ROCK DO September 18, 2017 11:16
[2017-09-18] MEDS: CEFEPIME HCL 2 GM VIAL 2 GM in NS(*) 0.9% 100 ML BAG 100 ML IVPB SCH (12:19)
[2017-09-18] MEDS: CEFDINIR 300 MG CAP PO SCH ×2 (13:29→20:47)
[2017-09-18] MEDS: OLANZapine 5 MG TAB PO SCH (20:47)
[2017-09-19] MEDS: IBUPROFEN 600 MG TAB PO PRN (01:23)
[2017-09-19 04:51] VITALS: BP 141/88
[2017-09-19 07:37] VITALS: BP 142/82
--- NOTE | 2017-09-19 08:03 | Hospitalist Progress Note ---
Subjective Progress Notes Subjective He denies any problems this AM. No cough. No dyspnea. Temperature minimally elevated (max 99.7F). Physical Exam Vital Signs Date Time Temp Pulse Resp B/P (MAP) Pulse Ox O2 Delivery O2 Flow Rate FiO2 09/19/17 07:44 Room Air 09/19/17 07:37 98.5 100 20 142/82 (102) 90 09/17/17 07:27 1.0 Intake and Output 09/20/17 07:00 # Voids 1 General Appearance: Alert, Awake Cardiovascular: Regular Rate and Rhythm Respiratory: Other (clear anteriorly) Result Diagram: 09/18/1761909/18/17619 Assessment and Plan Problems: (1) Pneumonia Status: Acute Assessment & Plan: He was started on cefepime on 09/15 after being found to have a fever and bilateral pulmonary infiltrates. His fever has now resolved. He has been converted to oral cefdinir. He will need approximately 6 more days. Would like him to follow up with his PCP in approximately one week. (2) OCD (obsessive compulsive disorder) Status: Chronic Assessment & Plan: He is on his usual regimen with olanzapine and Depakote. Exam Sepsis Risk: No Definite Risk Problem Qualifiers (1) Pneumonia: Pneumonia type: due to unspecified organism (2) OCD (obsessive compulsive disorder): Obsessive-compulsive disorder type: unspecified Qualified Codes: F42.9 - Obsessive-compulsive disorder, unspecified ELKE REES MD September 19, 2017 08:03
[2017-09-19] MEDS ORDERED: CEF300 PO (08:04)
--- NOTE | 2017-09-19 08:32 | General Surgery Progress Note ---
Subjective Progress Notes Subjective No complaints. "I want to go home". Physical Exam Vital Signs Date Time Temp Pulse Resp B/P (MAP) Pulse Ox O2 Delivery O2 Flow Rate FiO2 09/19/17 07:44 Room Air 09/19/17 07:37 98.5 100 20 142/82 (102) 90 09/17/17 07:27 1.0 Intake and Output 09/20/17 07:00 # Voids 1 General Appearance: Alert, Awake, Other (TMax 99.7) Neuro: No Gross deficits ENT: Moist Mucous Membranes Cardiovascular: Normal Rhythm & Peripheral Pulses Respiratory: No Respiratory Distress, Clear to Auscultation GI: Soft and Non-Tender Extremities: Soft and Non Tender Result Diagram: 09/18/1761909/18/17619 Assessment and Plan Problems: (1) Rectal cancer Status: Chronic Assessment & Plan: 09/11/17: POD#1 s/p Robotic LAR with colostomy. Doing well so far. Awaiting return of bowel function. Continue bowel rest and IV fluids. Will start lovenox tomorrow if he's hemostatic with stable Hb. IV tylenol and MECHANISM ASSEMBLER for pain control, will star toradol when H/H stable. Ambulate, IS, pulmonary hygiene, SCDs, PPI. 09/12/17: POD#2. Doing well. Will start clear diet this morning. Stop MECHANISM ASSEMBLER as he is using it so much that he is sleeping. Will go with intermittent PRN dilaudid, continue IV tylenol. Hold off on lovenox and toradol until H/H stable. Ambulate, IS, pulmonary hygiene, SCDs, PPI. Will need to follow his sodium closely and will restrict his fluid intake to 1.5L/day due to his psychogenic polydipsia. 09/13/17: POD#3. Doing well. Will try regular diet today. Convert meds to PO. Stoma teaching. D/C planning for home health nursing and home stoma care. Pt's mother will be the main person caring for his stoma in the long run. Ambulate, IS, pumonary hygiene, SCDs, lovenox, PPI, etc. Continue fluid restriction and follow his sodium. 09/14/17: POD#4. Doing well. Tolerating regular diet and PO meds. Will need to continue stoma teaching and d/c planning. Pt's mother is now exhibiting some resistance to caring for the stoma so will need to work on this. O/W, CCM. 09/15/17: POD#5. Doing fairly well but having recurring low grade fevers. Will check urine for infection given polyuria and recent Wood, and CXR given smoker. May need abdominal CT if fevers continue and no source is identified in lungs or urinary system. Pt's mother is on board with stoma care but wishes her son could participate more. Home health care is arrange for whenever he's ready for discharge. 09/16/17: POD#6. Doing well but has developed pneumonia and so started on IV abx by hospitalists. Fevers improving. Abdominal exam is benign, incisions and stoma all look good. Tolerating regular diet. Hopeful for d/c to home tomorrow. 09/17/17: POD#7. Doing well but still with intermittent fevers. Abdominal exam is benign. Hospitalists have him on IV abx for pneumonia. Tolerating diet but not eating too much. Stoma is functioning and looks healthy. He can go home when fevers resolve. 09/18/17: POD#8. Continues to slowly improve. Tmax past 24 hours 99.5. WBC remains normal. Abdomen benign. Incisions healing without evidence of infection. Tolerating PO. Stoma functioning. DC home tomorrow am if temp remains down. 09/19/17: POD#9 Still with low grad temperature, but this may be his norm. Abdomen benign. Incisions healing without evidence of infection. Sitting up eating breakfast. Stoma functioning. Hospitalists note appreciated. Will go ahead a DC home on PO antibiotics. F/U with PCP and F/U with Dr. Roque as scheduled. (2) Hyponatremia with decreased serum osmolality Status: Resolved Assessment & Plan: Will follow during postop fluid resuscitation with NS and lower than usual rate. Fluid restriction. (3) Fecal incontinence Status: Resolved Assessment & Plan: Resolved with colostomy (4) Severe manic bipolar 1 disorder with psychotic behavior Status: Chronic (5) OCD (obsessive compulsive disorder) Status: Chronic (6) Psychogenic polydipsia Status: Chronic Exam Sepsis Risk: No Definite Risk Problem Qualifiers (1) Fecal incontinence: Fecal incontinence type: psychogenic incontinence of feces Qualified Codes: F98.1 - Encopresis not due to a substance or known physiological condition (2) OCD (obsessive compulsive disorder): Obsessive-compulsive disorder type: unspecified Qualified Codes: F42.9 - Obsessive-compulsive disorder, unspecified ELIAZAR TENORIO MD September 19, 2017 08:32
[2017-09-19] MEDS: PANTOPRAZOLE SOD 40 MG TABEC PO SCH (08:34)
[2017-09-19] MEDS: ENOXAPARIN 40 MG/0.4ML SYR SC SCH (08:34)
[2017-09-19] MEDS: DIVALPROEX SOD DR 500 MG TAB PO SCH (08:34)
[2017-09-19] MEDS: CEFDINIR 300 MG CAP PO SCH (08:35)
--- NOTE | 2017-09-19 08:36 | Hospitalist Depart ---
Discharge Summary Reason for Hosp/Final Diag: (1) Rectal cancer Status: Chronic Hospital Course & Plan: 09/11/17: POD#1 s/p Robotic LAR with colostomy. Doing well so far. Awaiting return of bowel function. Continue bowel rest and IV fluids. Will start lovenox tomorrow if he's hemostatic with stable Hb. IV tylenol and FRAME NAILER for pain control, will star toradol when H/H stable. Ambulate, IS, pulmonary hygiene, SCDs, PPI. 09/12/17: POD#2. Doing well. Will start clear diet this morning. Stop FRAME NAILER as he is using it so much that he is sleeping. Will go with intermittent PRN dilaudid, continue IV tylenol. Hold off on lovenox and toradol until H/H stable. Ambulate, IS, pulmonary hygiene, SCDs, PPI. Will need to follow his sodium closely and will restrict his fluid intake to 1.5L/day due to his psychogenic polydipsia. 09/13/17: POD#3. Doing well. Will try regular diet today. Convert meds to PO. Stoma teaching. D/C planning for home health nursing and home stoma care. Pt's mother will be the main person caring for his stoma in the long run. Ambulate, IS, pumonary hygiene, SCDs, lovenox, PPI, etc. Continue fluid restriction and follow his sodium. 09/14/17: POD#4. Doing well. Tolerating regular diet and PO meds. Will need to continue stoma teaching and d/c planning. Pt's mother is now exhibiting some resistance to caring for the stoma so will need to work on this. O/W, CCM. 09/15/17: POD#5. Doing fairly well but having recurring low grade fevers. Will check urine for infection given polyuria and recent Wood, and CXR given smoker. May need abdominal CT if fevers continue and no source is identified in lungs or urinary system. Pt's mother is on board with stoma care but wishes her son could participate more. Home health care is arrange for whenever he's ready for discharge. 09/16/17: POD#6. Doing well but has developed pneumonia and so started on IV abx by hospitalists. Fevers improving. Abdominal exam is benign, incisions and stoma all look good. Tolerating regular diet. Hopeful for d/c to home tomorrow. 09/17/17: POD#7. Doing well but still with intermittent fevers. Abdominal exam is benign. Hospitalists have him on IV abx for pneumonia. Tolerating diet but not eating too much. Stoma is functioning and looks healthy. He can go home when fevers resolve. 09/18/17: POD#8. Continues to slowly improve. Tmax past 24 hours 99.5. WBC remains normal. Abdomen benign. Incisions healing without evidence of infection. Tolerating PO. Stoma functioning. DC home tomorrow am if temp remains down. 09/19/17: POD#9 Still with low grad temperature, but this may be his norm. Abdomen benign. Incisions healing without evidence of infection. Sitting up eating breakfast. Stoma functioning. Hospitalists note appreciated. Will go ahead a DC home on PO antibiotics. F/U with PCP and F/U with Dr. Roque as scheduled. (2) Hyponatremia with decreased serum osmolality Status: Resolved Hospital Course & Plan: Will follow during postop fluid resuscitation with NS and lower than usual rate. Fluid restriction. (3) Fecal incontinence Status: Resolved Hospital Course & Plan: Resolved with colostomy (4) Severe manic bipolar 1 disorder with psychotic behavior Status: Chronic (5) OCD (obsessive compulsive disorder) Status: Chronic (6) Psychogenic polydipsia Status: Chronic Departure Weight (Pounds): 153 Result Diagram: 09/18/17 0620 09/18/17 0620 Condition: Improved Discharge: Home Home Health RN Follow Up For: Nursing Assessment, [facility] Follow Up For: ADL Assistance Discharge Code Status: Full Code Time Spent: < 30 min Discharge Instructions Home Meds Active Scripts Cefdinir 300 Mg Cap (OMNICEF 300 MG CAP (OR EQUIV)) 300 Mg Cap, 300 MG PO BID for 6 Days, #12 CAP 0 Refills Prov:ELKE REES MD 09/19/17 Reported Medications Olanzapine (OLANZAPINE) 20 Mg Tablet, 20 MG PO QHS 11/06/16 Divalproex Sodium (DEPAKOTE) 500 Mg Tablet.dr, 1000 MG PO QHS, TAB 11/06/16 Divalproex Sodium (DEPAKOTE) 500 Mg Tablet.dr, 500 MG PO QAM, TAB 11/06/16 Diet: Regular Activity: As Tolerated, No Heavy Lifting Venous Thromboembolism VTE Risk Physician Assess for VTE Risk: Yes Patient's VTE Risk: Low VTE Diagnostic Test 2 Days Prior to Admit: No Antithrombotics Is Pt On Any Antithrombotics?: No Prophylaxis Tx Contraindicated Pharmacological Contraindicati: Pt at Low Risk for VTE Mechanical Contraindications: Pt at Low Risk for VTE Problem Qualifiers (1) Fecal incontinence: Fecal incontinence type: psychogenic incontinence of feces Qualified Codes: F98.1 - Encopresis not due to a substance or known physiological condition (2) OCD (obsessive compulsive disorder): Obsessive-compulsive disorder type: unspecified Qualified Codes: F42.9 - Obsessive-compulsive disorder, unspecified ELIAZAR TENORIO MD September 19, 2017 08:36
== END 2017-09-19 10:25 | disposition home health service (06) | DRG 329 ==
LOC: OR 02:31 → MED 20:13
PROVIDERS: ADMIT Surgery; ATTEND Surgery
PROC: 0DTP4ZZ Resection of Rectum, Percutaneous Endoscopic Approach (ICD-10-PCS; 2017-09-10)
PROC: 0DBN4ZZ Excision of Sigmoid Colon, Percutaneous Endoscopic Approach (ICD-10-PCS; 2017-09-10)
PROC: 8E0W4CZ Robotic Assisted Procedure of Trunk Region, Percutaneous Endoscopic Approach (ICD-10-PCS; 2017-09-10)
PROC: 0D1M4Z4 Bypass Descending Colon to Cutaneous, Percutaneous Endoscopic Approach (ICD-10-PCS; principal; 2017-09-10 11:50)
DX: C20 Malignant neoplasm of rectum (principal); J18.9 Pneumonia, unspecified organism; E87.1 Hypo-osmolality and hyponatremia; F31.2 Bipolar disorder, current episode manic severe with psychotic features; K66.0 Peritoneal adhesions (postprocedural) (postinfection); F42.9 Obsessive-compulsive disorder, unspecified; F98.1 Encopresis not due to a substance or known physiological condition; R63.1 Polydipsia; F17.210 Nicotine dependence, cigarettes, uncomplicated; R25.1 Tremor, unspecified; Z92.21 Personal history of antineoplastic chemotherapy; Z92.3 Personal history of irradiation
CPT/HCPCS: 36415; 71046; 81001; 82040; 82247; 82248; 82310; 82374; 82378; 82435; 82565; 82947; 84075; 84132; 84155; 84295; 84450; 84460; 84520; 85025; 86850; 86900; 86901; 87088; 88309; 88344; 94667; 97162; 97165; A4371; A4406; C9113; J0131; J0692; J1100; J1170; J1650; J1956; J2001; J2175; J2250; J2270; J2405; J2704; J2795; J3010; J3490; J7030; J7050

== ENCOUNTER 2017-10-04 06:38 | Inpatient (IN) | payer MEDICAID ==
[2017-09-11 12:11] VITALS: Ht 170.2 cm; Wt 63.5 kg
[~2017-10-04] VITALS: Ht 170.2 cm; Wt 63.5 kg
[~2017-10-04 06:38] MED LIST changes: +CEF300 PO; -DIVA-6 PO; +DIVA500T47 PO
[2017-10-04] MEDS ORDERED: NS(*) 0.9% 1000 ML BAG 1,000 ML IV ONE (07:35)
[2017-10-04] MEDS ORDERED: ONDANSETRON 4 MG/2 ML VIAL IVP ONE (07:35)
--- NOTE | 2017-10-04 07:36 | ER Report ---
History and Physical Time Seen By MD: 06:55 Hx. of Stated Complaint: COLOSTOMY PLACED ON 09/10/17. STARTED VOMITING AT APPROX 0200. C/O ABDOMINAL PAIN AND DISTENTION. HPI/ROS This is a 57-year-old male with a history of colon cancer. He underwent neoadjuvant chemotherapy and radiation. Weeks later he had colon resection and a colostomy placed by Dr. Zepeda September 10, 2017. She was doing well postop but presented to the emergency department today with multiple episodes of vomiting that started this morning. Mom also reports a difference in stool consistency in the colostomy. She said that the stool has become hard. He is still stooling into the colostomy bag, but mom reports less stooling and also states that his stoma seems to be protruding when he stands. He is unable to take by mouth due to nausea and vomiting. No fever or chills. No other complaints at this time. Mom does report however that he has returned to his polydipsia since being discharged after surgery and she is worried about his sodium level. Remainder of the 14 system rev: Yes Allergies: Coded Allergies: Penicillins (Verified Allergy, Unknown, 10/04/17) Home Meds Reported Medications Olanzapine (OLANZAPINE) 20 Mg Tablet, 20 MG PO QHS 11/06/16 Divalproex Sodium (DEPAKOTE) 500 Mg Tablet.dr, 1000 MG PO QHS, TAB 11/06/16 Divalproex Sodium (DEPAKOTE) 500 Mg Tablet.dr, 500 MG PO QAM, TAB 11/06/16 Discontinued Scripts Cefdinir 300 Mg Cap (OMNICEF 300 MG CAP (OR EQUIV)) 300 Mg Cap, 300 MG PO BID for 6 Days, #12 CAP 0 Refills Prov:ELKE REES MD 09/19/17 Reviewed Nurses Notes: Yes Old Medical Records Reviewed: Yes Hx Smoking: Yes (1 PPD X 30 YRS ) Smoking Status: Heavy Tobacco Smoker Exposure to Second Hand Smoke?: No Hx Substance Use Disorder: Yes (Pt unwilling to provide additional information) Hx Alcohol Use: Yes Constitutional Vital Sign - Last 24 Hours 10/04/17 10/04/17 10/04/17 10/04/17 06:44 07:00 07:40 09:02 Temp 98.0 Pulse 119 113 Resp 20 B/P (MAP) 101/63 148/85 (106) 129/87 (101) 156/110 (125) Pulse Ox 90 O2 Delivery Room Air Intake and Output 10/04/17 10/04/17 10/05/17 15:00 23:00 07:00 Intake Total 1000 ml Balance 1000 ml Physical Exam General Appearance: The patient is alert, has no immediate need for airway protection and no current signs of toxicity. Eyes: Pupils equal and round no injection. Respiratory: Chest is non tender, lungs are clear to auscultation. Cardiac: tachycardic and regular rhythm Gastrointestinal: Abdomen is distended and diffusely tender. There is a colostomy in place with a small amount of soft stool. Extremities have full range of motion and are non tender. Skin: No rashes or lesions. Neuro: Awake and alert. Has a resting tremor which is relieved with distraction. DIFFERENTIAL DIAGNOSIS: After history and physical exam differential diagnosis was considered for abdominal pain including but not limited to appendicitis, cholecystitis, gastritis, SBO, ileus Medical Decision Making Data Points Result Diagram: 10/04/17 0705 10/04/17 0705 Laboratory Hematology Test 10/04/17 07:05 10/04/17 10:05 Red Blood Count 3.76 M/uL (4.00-5.60) Mean Corpuscular Volume 89.8 fL (80.0-96.0) Mean Corpuscular Hemoglobin 31.3 pg (26.0-33.0) Mean Corpuscular Hemoglobin Concent 34.8 g/dL (32.0-36.0) Red Cell Distribution Width 15.3 % (11.5-14.5) Mean Platelet Volume 7.9 fL (7.2-11.1) Neutrophils (%) (Auto) 87.3 % (39.4-72.5) Lymphocytes (%) (Auto) 3.9 % (17.6-49.6) Monocytes (%) (Auto) 8.3 % (4.1-12.4) Eosinophils (%) (Auto) 0.0 % (0.4-6.7) Basophils (%) (Auto) 0.5 % (0.3-1.4) Nucleated RBC Relative Count (auto) 0.0 /100WBC Neutrophils # (Auto) 12.2 K/uL (2.0-7.4) Lymphocytes # (Auto) 0.6 K/uL (1.3-3.6) Monocytes # (Auto) 1.2 K/uL (0.3-1.0) Eosinophils # (Auto) 0.0 K/uL (0.0-0.5) Basophils # (Auto) 0.1 K/uL (0.0-0.1) Nucleated RBC Absolute Count (auto) 0.00 K/uL Peripheral Blood Smear Yes Y/N Sodium Level 126 mmol/L (137-145) Potassium Level 4.4 mmol/L (3.5-5.0) Chloride Level 88 mmol/L (98-107) Carbon Dioxide Level 24 mmol/L (22-30) Blood Urea Nitrogen 13 mg/dl (9-21) Creatinine 0.80 mg/dl (0.66-1.25) Glomerular Filtration Rate Calc > 60.0 Random Glucose 130 mg/dl (75-110) Calcium Level 8.9 mg/dl (8.4-10.2) Total Bilirubin 0.4 mg/dl (0.2-1.3) Aspartate Amino Transf (AST/SGOT) 23 U/L (0-35) Alanine Aminotransferase (ALT/SGPT) 30 U/L (0-56) Alkaline Phosphatase 74 U/L (0-126) Total Protein 6.6 gm/dl (6.3-8.2) Albumin 3.5 g/dl (3.5-5.0) Lipase 37 U/L (23-300) Prothrombin Time 15.8 seconds (12.0-14.4) Prothromb Time International Ratio 1.25 Activated Partial Thromboplast Time 37 seconds (23-35) Chemistry Test 10/04/17 07:05 10/04/17 10:05 White Blood Count 14.0 k/uL (4.5-11.0) Red Blood Count 3.76 M/uL (4.00-5.60) Hemoglobin 11.8 g/dL (14.0-18.0) Hematocrit 33.8 % (42.0-52.0) Mean Corpuscular Volume 89.8 fL (80.0-96.0) Mean Corpuscular Hemoglobin 31.3 pg (26.0-33.0) Mean Corpuscular Hemoglobin Concent 34.8 g/dL (32.0-36.0) Red Cell Distribution Width 15.3 % (11.5-14.5) Platelet Count 695 K/uL (150-450) Mean Platelet Volume 7.9 fL (7.2-11.1) Neutrophils (%) (Auto) 87.3 % (39.4-72.5) Lymphocytes (%) (Auto) 3.9 % (17.6-49.6) Monocytes (%) (Auto) 8.3 % (4.1-12.4) Eosinophils (%) (Auto) 0.0 % (0.4-6.7) Basophils (%) (Auto) 0.5 % (0.3-1.4) Nucleated RBC Relative Count (auto) 0.0 /100WBC Neutrophils # (Auto) 12.2 K/uL (2.0-7.4) Lymphocytes # (Auto) 0.6 K/uL (1.3-3.6) Monocytes # (Auto) 1.2 K/uL (0.3-1.0) Eosinophils # (Auto) 0.0 K/uL (0.0-0.5) Basophils # (Auto) 0.1 K/uL (0.0-0.1) Nucleated RBC Absolute Count (auto) 0.00 K/uL Peripheral Blood Smear Yes Y/N Glomerular Filtration Rate Calc > 60.0 Calcium Level 8.9 mg/dl (8.4-10.2) Total Bilirubin 0.4 mg/dl (0.2-1.3) Aspartate Amino Transf (AST/SGOT) 23 U/L (0-35) Alanine Aminotransferase (ALT/SGPT) 30 U/L (0-56) Alkaline Phosphatase 74 U/L (0-126) Total Protein 6.6 gm/dl (6.3-8.2) Albumin 3.5 g/dl (3.5-5.0) Lipase 37 U/L (23-300) Prothrombin Time 15.8 seconds (12.0-14.4) Prothromb Time International Ratio 1.25 Activated Partial Thromboplast Time 37 seconds (23-35) Coagulation Test 10/04/17 10:05 Prothrombin Time 15.8 seconds Prothromb Time International Ratio 1.25 Activated Partial Thromboplast Time 37 seconds EKG/Imaging Imaging X-ray: AAS was obtained. I viewed the images myself on the PACS system. My interpretation of the images is: multiple distended loops of small bowel with air fluid levels. The radiologist interpretation had no clinically significant variation from this interpretation. Results: CT scan of the abdomen/pelvis was obtained. The results of the study are SBO and pre-sacral fluid collection. The study was read by the radiologist. I viewed the images myself on the PACS system. ED Course/Re-evaluation ED Course 57-year-old male with a history of colon cancer with resection and placement of colostomy 09/10/[address] Zepeda. He presented to the emergency department with nausea and vomiting that started this morning, and found to have an SBO both clinically and on imaging studies. Also with a hospital acquired pneumonia and a presacral fluid collection in the pelvis. He is otherwise stable. An NG tube was placed, and a moderate amount of material was suctioned. The patient states he feels less nauseous and is comfortable after NG tube placement. He was also started on vancomycin and Zosyn for a presumed hospital acquired pneumonia. He did carry a penicillin allergy in his records, however after talking to his mom the allergy was unclear. I made the decision to give him Zosyn while he remained in the emergency Department in case he had an allergic reaction. He did well with the Zosyn. He did not experience a rash, itching, shortness of breath, or any other symptom associated with an allergic reaction. I spoke with Dr. Zepeda who will admit the patient for more definitive management. Decision to Disposition Date: Oct 04, 2017 Decision to Disposition Time: 11:22 Depart Departure Latest Vital Signs Vital Signs Date Time Temp Pulse Resp B/P (MAP) Pulse Ox O2 Delivery O2 Flow Rate FiO2 10/04/17 09:02 156/110 (125) 10/04/17 07:00 113 10/04/17 06:44 98.0 20 90 Room Air Impression: Primary Impression: Small bowel obstruction due to postoperative adhesions Condition: Improved Disposition: Admitted from ER Referrals: KHOA MADRID MD (PCP) ТАТЬЯНА BREWSTER MD Oct 04, 2017 07:36
[2017-10-04 07:41] LABS: PLATELET COUNT, AUTOMATED 695 K/uL (150-450)
--- NOTE | 2017-10-04 08:28 | RADIOLOGY IMAGING REPORT ---
FACILITY: [facility] - [place] PATIENT NAME: Matthew Roth : 1960 MR: [id number] V: [id number] EXAM DATE: ORDERING PHYSICIAN: ТАТЬЯНА BREWSTER TECHNOLOGIST: Location: [facility] [place] Patient: Matthew Roth : 1960 Visit/Account:[id number] Date of Sevice: 10/04/2017 Examination: PA chest with abdomen obstructive series HISTORY: Abdominal pain. Nausea. Vomiting. COMPARISON: Abdomen single view 02/19/2017 is reviewed. FINDINGS: PA view of the chest demonstrates patchy asymmetric opacities within the left lung base jus t above the diaphragm. There is a nodular component seen in the costophrenic angle. These changes are new when compared to the January images which included the left lung base. This may reflect an acute infectious/inflammatory process. Correlate clinically. No pleural effusion or pneumothorax is seen. Heart size and mediastinal contours are normal. Supine and upright views of the abdomen demonstrate no free air. There are multiple moderately dilate d small bowel loops seen throughout the abdomen. Multiple air-fluid levels are seen on the upright pr ojection. Stool and gas is seen throughout the colon and rectum. A surgical anastomosis overlies the central, low rectum. IMPRESSION: 1. Multiple moderately dilated small bowel loops throughout the abdomen with multiple air-fluid level s. Differential would include a diffuse ileus versus a small bowel obstruction. 2. Patchy asymmetric opacities within the left lung base with a nodular component seen within the lef t costophrenic angle. Findings may reflect a developing left basilar pneumonia. Continued radiographi c follow-up is recommended to ensure resolution. If this persists, CT thorax exam recommended. Report Dictated By: Amadeo Moya at 10/04/2017 8:18 AM Report E-Signed By: Amadeo Moya at 10/04/2017 8:25 AM WSN:[id number]
[2017-10-04] MEDS ORDERED: IOPAMIDOL 76% 75 ML INFUS BTL 75 ML ONE (08:47)
--- NOTE | 2017-10-04 09:48 | RADIOLOGY IMAGING REPORT ---
FACILITY: [facility] PATIENT NAME: Matthew Roth : 1960 MR: [id number] V: [id number] EXAM DATE: ORDERING PHYSICIAN: ТАТЬЯНА BREWSTER TECHNOLOGIST: Location: [facility] Patient: Matthew Roth : 1960 Visit/Account:[id number] Date of Sevice: 10/04/2017 ADDENDUM #1 Findings of partial small bowel obstruction, presacral fluid collection which could be abscess or hem atoma, possible pneumatosis intestinalis of a loop of small bowel in the right abdomen, suspected rita g base pneumonia discussed by telephone with Dr. Cuco BREWSTER at 10/04/2017 9:48 AM. Report Dictated By: Dionisio Mahmood at 10/04/2017 9:48 AM Report E-Signed By: Dionisio Mahmood at 10/04/2017 9:49 AM ORIGINAL REPORT ABDOMEN/PELVIS WITH CONTRAST COMPARISON: MRI pelvis 08/17/17 HISTORY: ??SBO. TECHNIQUE: Axial CT abdomen and pelvis with intravenous contrast. Coronal and sagittal reformats. One of the following dose optimization techniques was utilized in the performance of this exam: aut omated exposure control; adjustment of the mA and/or kV according to patient size; or use of iterativ e reconstruction technique. Specific details can be referenced in the facility's radiology CT exam o perational policy. CONTRAST: 75 mL of IV Isovue-370. FINDINGS: LUNG BASES: Small region of suspected consolidation/pneumonia, inferior lingula. Clustered irregular small nodules in the right middle lobe and left lower lobe, almost certainly infectious, but there i s a history of malignancy and follow-up will be necessary. The lung base opacities are obscured by re spiratory motion artifact.. LIVER: Unremarkable. BILIARY: Unremarkable gallbladder. No intra-or extrahepatic bile duct dilatat ion. SPLEEN: Unremarkable. Normal size. PANCREAS: Probable pseudolesion accounting for a lobulated low-density focus along the anterior enma in of the pancreatic tail measuring 1.2 cm maximally series 2 image 39. On sagittal images this appea rs to be due to volume averaging with fluid in the posterior stomach rather than a true lesion. Other bose negative. ADRENALS: Unremarkable. KIDNEYS: Symmetric enhancement. No hydronephrosis or stones. Benign subcentimeter cysts in both kidn eys, left upper pole and right lower pole. GI/MESENTERY: Mild diffuse motion artifact. Fluid-filled, moderately dilated small bowel and fluid-f illed mildly dilated stomach consistent with partial small bowel obstruction, transition point in th e deep pelvis at the former location of the rectum, best seen in sagittal image 68. At this site ther e is small bowel wall thickening and diminished caliber without concerning nodularity. There is gas a nd stool in the colon. Thickened small bowel abuts a presacral fluid collection measuring about 5.0 x 5.7 x 9.3 cm (series 2 image 114 and series 5 image 62), with intermediate density, about 49 Hounsfield units, which could be seen with purulent or bloody fluid. This could represent post operative hematoma, abscess not excl uded. This does not contain gas. There is mild rim enhancement. A single loop of small bowel in the right abdomen, coronal image 39, axial series 2 image 84 is gas a long its nondependent wall for which pneumatosis intestinalis is not excluded but there is no associa edmund wall thickening or mesenteric venous gas. The rectum has been resected since the previous pelvic MRI, with a diverting colostomy in the left lo wer quadrant, level of the sigmoid colon. Small amount of free fluid in the mesenteric fat just above the bladder. Trace free fluid in the left upper quadrant caudal to the spleen.Small amount of free f luid in the hepatorenal fossa. VASCULAR: Mild atherosclerotic disease in the distal abdominal aorta and proximal iliac vasculature without significant aortic narrowing but there is mild common iliac artery narrowing bilaterally. The celiac, SMA and BRADY are disease free and widely patent. LYMPH NODES: Unremarka le. No significantly enlarged lymph nodes. BLADDER: Unremarkable. No visible focal wall thickening, appreciable lesion, or calculus. PELVIC ORGANS: Nonspecific prostate calcifications.BONES: Mild thoracic and lumbar spine degenerati ve changes. Chronic L5 pars intraarticularis defects with first degree anterolisthesis of 3 mm at L5- S1. Small sclerotic lesion, right femoral neck is most consistent with a bone island.No acute-appeari ng fracture or suspicious osseous lesion. OTHER: Negative. IMPRESSION: 1. Partial small bowel obstruction with transition in the pelvis former location of the rectum, abut ting a complex fluid containing presacral fluid collection measuring up to 9.3 cm. This could be a po stoperative hematoma but an abscess is not excluded. 2. A few additional small pockets of free fluid elsewhere in the abdomen and pelvis, without loculat ion. 3. Interval rectal resection with diverting left lower quadrant colostomy the level of the sigmoid. 4. Single loop of dilated small bowel in the right abdomen has features of possible pneumatosis inte stinalis versus trapped gas along its dependent wall. Mesenteric vessels are widely patent. 5. No evidence of locally recurrent or metastatic disease. 6. Low-density lesion along the anterior margin of the distal pancreas is probably a pseudolesion du e to volume averaging with the stomach. Dedicated pancreatic follow-up imaging should not be necessar y at this time. Attention on follow-up recommended. 7. Suspected pneumonia in the inferior lingular. Irregular subcentimeter right middle and left lower lobe nodules are probably infectious. Report Dictated By: Dionisio Mahmood at 10/04/2017 9:16 AM Report E-Signed By: Dionisio Mahmood at 10/04/2017 9:43 AM WSN:[id number]
[2017-10-04] MEDS ORDERED: PIPERACILLIN/TAZO*3.375GM VIAL 3.375 GM in NS(*) 0.9% 100 ML ADDVANT BAG 100 ML IVPB ONE (10:00)
[2017-10-04] MEDS ORDERED: VANCOMYCIN 1 GM ADDVIAL 1 GM in NS(*) 0.9% 250 ML ADDVAN BAG 250 ML IVPB ONE (10:00)
[2017-10-04] MEDS ORDERED: FLUSH 10 ML SYR IVP PRN (10:05)
--- NOTE | 2017-10-04 10:05 | EKG ---
FACILITY: [facility] - [place] PATIENT NAME: RITO WALL : [id number] MR: [id number] V: [id number] EXAM DATE: ORDERING PHYSICIAN: ТАТЬЯНА BREWSTER TECHNOLOGIST: BIJAN Shepard Reason : pre op Blood Pressure : / mmHG Vent. Rate : 108 BPM Atrial Rate : 108 BPM P-R Int : 122 ms QRS Dur : 066 ms QT Int : 314 ms P-R-T Axes : 088 047 038 degrees QTc Int : 420 ms Appears to be sinus tachycardia, but recommended repeat EKG Baseline artifact is extensive and precludes further evaluation Confirmed by ELKE REES ([id number]) on 10/04/2017 10:26:02 AM Referred By: NARCISA Confirmed By:ELKE REES
[2017-10-04] MEDS ORDERED: LORazepam 2 MG/ML VIAL IVP ONE (10:20)
[2017-10-04 10:26] LABS: INR 1.25
[2017-10-04] MEDS ORDERED: LIDOCAINE 2% VISC SLN 15ML UDC ONE (10:35)
--- NOTE | 2017-10-04 11:26 | RADIOLOGY IMAGING REPORT ---
FACILITY: [facility] PATIENT NAME: Matthew Roth : 1960 MR: [id number] V: [id number] EXAM DATE: ORDERING PHYSICIAN: ТАТЬЯНА BREWSTER TECHNOLOGIST: Location: Patient: Matthew Roth : 1960 Visit/Account:[id number] Date of Sevice: 10/04/2017 Exam type: CHEST SINGLE AP History: SBO, NG tube placement Comparison: Two-view chest September 15, 2017. Findings: There is been slight improvement of the patchy infiltrates in the upper lung zones. Patchy airspace consolidation remains in the lower lobes and is actually slightly increased in this region. There is no evidence of pleural effusions. The cardiac silhouette is normal in size. There is some placemen t of an NG/OG tube the distal tip projects over the left upper quadrant of abdomen presumably within the stomach IMPRESSION: 1. NG tube tip projects over the left upper quadrant of abdomen presumably within the stomach Slight improvement of the patchy infiltrates in the upper lung zones although increased in the lower lung zones Report Dictated By: Keena Herrera MD at 10/04/2017 11:21 AM Report E-Signed By: Keena Herrera MD at 10/04/2017 11:23 AM WSN:[id number]
[2017-10-04 11:38] VITALS: BP 154/89
[2017-10-04] MEDS: NS(*) 0.9% 1000 ML BAG 1,000 ML IV PRN ×2 (11:55→20:29)
[2017-10-04 13:48] VITALS: BP 136/88
[2017-10-04] MEDS ORDERED: FLUMAZENIL 0.1 MG/ML 5 ML VIAL IVP ONE (14:35)
--- NOTE | 2017-10-04 15:05 | Hospitalist Progress Note ---
Subjective Progress Notes Subjective Patient well known to our service from his last admission during which he had healthcare associated pneumonia following his sigmoid/rectal resection for cancer. He is now admitted with SBO under Dr. Roque's care. He was found to have possible LLL infiltrate on CXR/CT scan as well. He has been started on IV Primaxin and vancomycin for coverage of his potential pneumonia/possibility of intra-abdominal process. At present his oxygen requirement is increasing and he has become more somnolent. He did receive IV Dilaudid and Ativan in the ER. Physical Exam Vital Signs Date Time Temp Pulse Resp B/P (MAP) Pulse Ox O2 Delivery O2 Flow Rate FiO2 10/04/17 14:09 26 94 Non-Rebreather 10.0 10/04/17 13:48 99.6 90 136/88 (104) Intake and Output 10/05/17 07:00 Intake Total 1110 ml Output Total 700 ml Balance 410 ml Intake IV Total 1110 ml Output Gastric Drainage Total 700 ml General Appearance: Other (somnolent and minimally arousable with sternal rub) Neuro: Other (some resting tremor) Cardiovascular: Other (Fairly regular with near tachycardic rate) Respiratory: Other (poor effort/few scattered rhonchi) Chest: No Tenderness GI: Other (slightly distended/minimal reaction with palpation) Extremities: Warm, Perfused Result Diagram: 10/04/1770410/04/17704 Assessment and Plan Problems: (1) Pneumonia Status: Acute Assessment & Plan: It appears he may have a left basilar pneumonia. Findings are rather minimal on CXR and CT scan. The Primaxin and vancomycin should cover very well. I suspect his increased oxygen requirement may be related to his sedation/medications. Will see how he responds to the Romazicon. (2) Somnolence Status: Acute Assessment & Plan: It may be secondary to medications. Will give a dose of Romazicon and reassess. If he does not respond to the Romazicon, will need further evaluation. Exam Sepsis Risk: Severe Sepsis Risk ELKE REES MD Oct 04, 2017 15:04
[2017-10-04] MEDS ORDERED: PIPERACILLIN/TAZO*3.375GM VIAL 3.375 GM in NS(*) 0.9% 100 ML ADDVANT BAG 100 ML IVPB SCH (16:00)
[2017-10-04] MEDS: IMIPENEM/CILASTA(*) 500MG VIAL 500 MG in NS(*) 0.9% 100 ML BAG 100 ML IVPB SCH ×2 (16:38→22:19)
[2017-10-04 18:58] VITALS: BP 122/80
--- NOTE | 2017-10-04 20:32 | Gen Surgery History & Physical ---
History of Present Illness Chief Complaint Abdominal pain with nausea and vomiting History of Present Illness 57-year-old gentleman who is now 3-1/2 weeks status post robotic low anterior resection performed on September 10, for rectal cancer. Surgery was uncomplicated and he was given a colostomy due to chronic fecal incontinence which is possibly psychogenic. He had some low-grade temperatures and intermittent tachycardia postoperatively but a benign abdominal exam and good return of bowel function. He was diagnosed postoperatively with pneumonia and treated with an inpatient course of antibiotics. Ultimately he recovered and was discharged home and I saw him last week in the office and he was doing reasonably well with good stoma function and good appetite. 2 days ago he started feeling poorly with increasing abdominal pain and bloating and yesterday started vomiting prompting his mother, who is his caregiver, to bring him into the emergency room where a CT scan and abdominal x-ray was consistent with a small bowel obstruction. Also found incidentally was a presacral fluid collection and pneumonia. He has been recommended for admission and so I have accepted him to manage these issues. His colostomy was functioning normally until yesterday when his mother noted very firm stool coming out and then no gas or stool starting this morning. History Problems: (1) Rectal cancer Status: Chronic (2) OCD (obsessive compulsive disorder) Status: Chronic (3) Psychogenic polydipsia Status: Chronic (4) Severe manic bipolar 1 disorder with psychotic behavior Status: Chronic (5) Family history unobtainable due to patient's condition Home Meds Reported Medications Olanzapine (OLANZAPINE) 20 Mg Tablet, 20 MG PO QHS 11/06/16 Divalproex Sodium (DEPAKOTE) 500 Mg Tablet.dr, 1000 MG PO QHS, TAB 11/06/16 Divalproex Sodium (DEPAKOTE) 500 Mg Tablet.dr, 500 MG PO QAM, TAB 11/06/16 Discontinued Scripts Cefdinir 300 Mg Cap (OMNICEF 300 MG CAP (OR EQUIV)) 300 Mg Cap, 300 MG PO BID for 6 Days, #12 CAP 0 Refills Prov:ELKE REES MD 09/19/17 Allergies: Coded Allergies: Penicillins (Verified Allergy, Unknown, 10/04/17) Patient History: FH: colon cancer MOTHER FH: depression MOTHER FH: heart disease FATHER FH: thyroid disease FATHER BROTHER OR SISTER Unobtainable due to patient's condition Review of Systems All Systems Reviewed/Normal: Yes, Except as Noted Gastrointestinal: Nausea, Vomiting, Abdominal Pain Exam General Appearance: No Acute Distress, Other (patient is somnolent during my evaluation. He had just received Ativan in the emergency room to facilitate nasogastric tube placement.) Neuro: No Gross deficits Eyes: PERRLA Cardiovascular: Regular Rate and Rhythm Respiratory: Other (rhonchi in the bases.) GI: Other (soft, distended, diffuse tenderness to palpation but no peritoneal signs. His stoma is pink but there is little gas or stool in the bag.) Extremities: Warm, Perfused Medical Decision Making Data Points Result Diagram: 10/04/1770410/04/17704 Assessment and Plan Problems: (1) Small bowel obstruction due to postoperative adhesions Status: Acute Assessment & Plan: 10/04/17: Admit, nothing by mouth, IV fluids, bowel rest, conservative management start with. We'll follow his x-rays and NG tube output as well as stoma output. We will hold off on any sort of surgery until he is about 6 weeks out from his initial resection surgery. Hopefully he will respond to conservative management. His last meal was yesterday and his mother reports that he has been eating reasonably well. If he is unable to eat and about 5 or 6 days then we will need to consider a PICC line and starting TPN. I have explained this plan to the patient's mother and she seems to understand and seems to be agreeable with this plan. (2) Pneumonia Status: Acute Assessment & Plan: Hospitalist helping to manage this, according to Dr. Rees 's note: It appears he may have a left basilar pneumonia. Findings are rather minimal on CXR and CT scan. The Primaxin and vancomycin should cover very well. I suspect his increased oxygen requirement may be related to his sedation/ medications. Will see how he responds to the Romazicon. (3) Pelvic fluid collection Status: Chronic Assessment & Plan: We'll need to follow this. If he is developing an abscess then this will need to be drained. We'll follow his fevers, white blood cell count, and rest of his vitals as he responds to the antibiotics for the pneumonia. Condition Guarded Time Spent: < 30 min Venous Thromboembolism VTE Risk Physician Assess for VTE Risk: Yes Patient's VTE Risk: High VTE Diagnostic Test 2 Days Prior to Admit: No Antithrombotics Is Pt On Any Antithrombotics?: Yes Problem Qualifiers (1) Pneumonia: Pneumonia type: due to unspecified organism Laterality: unspecified laterality Lung location: unspecified part of lung Qualified Codes: J18.9 - Pneumonia, unspecified organism ZACH CLAUDIO MD Oct 04, 2017 20:31
[2017-10-04] MEDS ORDERED: VANCOMYCIN 1 GM ADDVIAL 1 GM in NS(*) 0.9% 250 ML ADDVAN BAG 250 ML IVPB SCH (21:00)
[2017-10-04] MEDS ORDERED: OLANZapine 5 MG TAB PO SCH (21:00)
[2017-10-04] MEDS ORDERED: DIVALPROEX SOD DR 500 MG TAB PO SCH (21:00)
[2017-10-05] VITALS (8 sets, daily range): BP systolic 98–138; BP diastolic 67–88
[2017-10-05] MEDS: IMIPENEM/CILASTA(*) 500MG VIAL 500 MG in NS(*) 0.9% 100 ML BAG 100 ML IVPB SCH ×4 (03:23→22:45)
--- NOTE | 2017-10-05 05:49 | RADIOLOGY IMAGING REPORT ---
FACILITY: [facility] PATIENT NAME: Matthew Roth : 1960 MR: [id number] V: [id number] EXAM DATE: ORDERING PHYSICIAN: ZACH CLAUDIO TECHNOLOGIST: [place] [facility] [place]: Matthew Roth : 1960 Visit/Account:[id number] Date of Sevice: 10/05/2017 EXAMINATION: KUB 10/05/2017 5:00 AM HISTORY: SBO COMPARISON: 10/04/2017 FINDINGS: Gaseous distention of small bowel with a similar degree. Lack of significant gas in the c olon. No pneumatosis evident. Nasogastric tube tip just below the GE junction. No visible calculus. D egenerative changes in the spine. Markings in the lung bases are probably atelectasis. IMPRESSION: 1. Persistent pattern of SBO with similar degree of distention to previous. 2. Nasogastric tube tip is just below the GE junction. Report Dictated By: Adal Viera MD at 10/05/2017 5:42 AM Report E-Signed By: Adal Viera MD at 10/05/2017 5:45 AM WSN:[id number]
[2017-10-05 06:10] LABS: PLATELET COUNT, AUTOMATED 566 K/uL (150-450)
[2017-10-05] MEDS: NS(*) 0.9% 1000 ML BAG 1,000 ML IV PRN ×2 (07:26→22:46)
[2017-10-05] MEDS: HYDROmorphone HCL 2 MG/ML SDV IVP PRN ×3 (07:35→20:59)
--- NOTE | 2017-10-05 08:09 | Hospitalist Progress Note ---
Subjective Progress Notes Subjective He has no concerns this morning. He had no acute events overnight. Patient Complains of: Cardiovascular: No: Chest Pain Respiratory: No: Shortness of Breath Physical Exam Vital Signs Date Time Temp Pulse Resp B/P (MAP) Pulse Ox O2 Delivery O2 Flow Rate FiO2 10/05/17 07:29 99.4 111 20 138/88 (105) 96 Oxy Mask 10/05/17 03:03 2.0 General Appearance: No Acute Distress Neuro: Other (resting tremor noted) Cardiovascular: Regular Rate and Rhythm Respiratory: No Respiratory Distress, Other (crackles noted throughout bilterally) GI: Other (distended) Extremities: Warm, Perfused Result Diagram: 10/05/17 0553 10/05/17552 Assessment and Plan Problems: (1) Pneumonia Status: Acute Assessment & Plan: It appears he may have a left basilar pneumonia. Findings are rather minimal on CXR and CT scan. The Primaxin and vancomycin should cover very well. He oxygen requirement is now decreased to 2L. (2) Somnolence Status: Acute Assessment & Plan: It was secondary to medications. He was given a dose of Romazicon and responded well. (3) OCD (obsessive compulsive disorder) Status: Chronic Assessment & Plan: He is on chronic treatment with Olanzapine and Depakote. Exam Sepsis Risk: Severe Sepsis Risk Problem Qualifiers (1) Pneumonia: Pneumonia type: due to unspecified organism Laterality: unspecified laterality Lung location: unspecified part of lung Qualified Codes: J18.9 - Pneumonia, unspecified organism AIDEN KAUR [facility] Oct 05, 2017 08:08
--- NOTE | 2017-10-05 08:37 | General Surgery Progress Note ---
Subjective Progress Notes Subjective Patient without complaints this morning. He is alert but not really answering questions which is fairly typical for to him. He is certainly much more alert than yesterday. Physical Exam Vital Signs Date Time Temp Pulse Resp B/P (MAP) Pulse Ox O2 Delivery O2 Flow Rate FiO2 10/05/17 07:29 99.4 111 20 138/88 (105) 96 Oxy Mask 10/05/17 03:03 2.0 General Appearance: Alert, Awake, No Acute Distress, Afebrile GI: Other (soft, less distended than yesterday. Mildly diffusely tender to palpation. Stoma is pink but there is no gas or stool in the bag.) Extremities: Warm, Perfused Result Diagram: 10/05/17 0553 10/05/17552 Assessment and Plan Problems: (1) Small bowel obstruction due to postoperative adhesions Status: Acute Assessment & Plan: 10/04/17: Admit, nothing by mouth, IV fluids, bowel rest, conservative management start with. We'll follow his x-rays and NG tube output as well as stoma output. We will hold off on any sort of surgery until he is about 6 weeks out from his initial resection surgery. Hopefully he will respond to conservative management. His last meal was yesterday and his mother reports that he has been eating reasonably well. If he is unable to eat and about 5 or 6 days then we will need to consider a PICC line and starting TPN. I have explained this plan to the patient's mother and she seems to understand and seems to be agreeable with this plan. 10/05/17: Continued small bowel obstruction clinically and radiographically based on his KUB this morning. Will continue conservative management with NG tube decompression, bowel rest, and IV fluids. Continue IV antibiotics for pneumonia. If he fails to get better in the next several days may consider diagnostic laparoscopy with drainage of the pelvic fluid collection and inspection of his small bowel. We'll let his small bowel decompress further before contemplating this. (2) Pneumonia Status: Acute Assessment & Plan: Hospitalist helping to manage this, according to Dr. Orourke 's note: It appears he may have a left basilar pneumonia. Findings are rather minimal on CXR and CT scan. The Primaxin and vancomycin should cover very well. I suspect his increased oxygen requirement may be related to his sedation/ medications. Will see how he responds to the Romazicon. (3) Pelvic fluid collection Status: Chronic Assessment & Plan: We'll need to follow this. If he is developing an abscess then this will need to be drained. We'll follow his fevers, white blood cell count, and rest of his vitals as he responds to the antibiotics for the pneumonia. (4) Urinary retention with incomplete bladder emptying Status: Acute Assessment & Plan: Wood catheter inserted. We'll remove in the next couple of days and monitor his bladder function. Condition Stable Time Spent: < 30 min Exam Sepsis Risk: Severe Sepsis Risk Problem Qualifiers (1) Pneumonia: Pneumonia type: due to unspecified organism Laterality: unspecified laterality Lung location: unspecified part of lung Qualified Codes: J18.9 - Pneumonia, unspecified organism ZACH CLAUDIO MD Oct 05, 2017 08:36
[2017-10-05] MEDS ORDERED: DIVALPROEX SOD DR 500 MG TAB PO SCH (09:00)
[2017-10-05] MEDS: ENOXAPARIN 40 MG/0.4ML SYR SC SCH (09:34)
[2017-10-05] MEDS: PANTOPRAZOLE SOD 40 MG IV VIAL IVP SCH (09:34)
[2017-10-05] MEDS ORDERED: VALPROATE SOD IVPB SCH ×2 (09:45→12:56)
[2017-10-05] MEDS ORDERED: NS 0.9% IVPB SCH ×2 (09:45→12:56)
[2017-10-05] MEDS: VANCOMYCIN 1 GM ADDVIAL 1 GM in NS(*) 0.9% 250 ML ADDVAN BAG 250 ML IVPB SCH ×2 (11:23→19:26)
--- NOTE | 2017-10-05 12:59 | Medical Nutrition Therapy ---
Nutrition Anthropometrics Height (Inches): 67.00 Height (Calculated Centimeters: 170.637307 Weight (Pounds): 156 Weight (Calculated Kilograms): 70.760 Sherman Nutrition Score: Very Poor Sherman Nutrition Risk Score: 15 Dietary Referral Nutrition Risk Factors: Nutrition Risk Comment: Physical Findings Physical Appearance: WNR 24.4 Skin Appearance Skin Appearance: Edema Edema Location Modifier: Edema Location: Type of Edema: Degree of Edema: Gastrointestinal Symptoms GI Symtoms: Change in Bowel Pattern Tube Present: NG Bowel Sounds: Recent Bowel Pattern: Stool Characteristics: Brown, Soft Nutritional Diagnosis Nutritional Risk Acuity 1: GI Obstruction (SBO) Nutritional Risk Acuity 2: Head/Neck/GI Cancer (Rectal cancer), New Colostomy, Sepsis Past Medical History: fecal incontinence, severe manic bipolar 1 disorder with psychotic behavior, psychogenic polydipsia, hyponatremia, OCD, rectal cancer, SBO, fatigue, weakness, hyperlipidemia, pneumonia, hx colon cancer, pevlic fluid collection Nutritional Acuity: 1-High Nutrition Diagnosis: Inadequate Food Intake Nutrition Etiology: Physiological Causes Nutrition Problem/Etiology/Sym: Inadequate oral intake related to physiological causes as evidence by nausea and vomting for two days. Energy Requirement: 1935 ([place] ) Protein Requirement: 78 (1.1g/kg) Fluid Requirement: 2100 (30ml/kg) Diet Type: NPO/Meds Only Nutrition Intervention: Change diet Nutrition Monitoring & Eval Nutrition Goals: Diet advancement RD Patient Assessment Time: [address] Assessment Type: RD Assessment Patient Nutrition Acuity: 1-High Follow Up Date: Oct 07, 2017 Nutritional Comment: 10/05 Pt admitted for SBO and pneumonia. Pt is experiencing N/V, fever and abdominal pain. Pt is on NPO diet with meds only. Pt has a hx of colon cancer. Pt had a colostomy placed (09/10). Pt mother states the his bowel movements have in his bag have been more bulky. She states that he eats reasonably well. However, in doctor's note he had stated if pt does not eat within the next 5-6 days a PICC line and TPN would be placed. Mother agreed to this plan. Pt WBC was elevated and has reach WNR. Pt is on antibiotics for pneumonia. Pt has pelvic fluid collection and at risk for sepsis. Pt has low Na (130) and low H/H. Continue to monitor pt progress, labs and diet advancement. -DAVID VELEZ Oct 05, 2017 10:15
[2017-10-05] MEDS ORDERED: LR 500 ML BAG 500 ML IV ONE (18:05)
[2017-10-05] MEDS: ONDANSETRON 4 MG/2 ML VIAL IVP PRN (19:12)
[2017-10-05] MEDS: VALPROATE SOD 100 MG/ML VIAL 1,000 MG in NS(*) 0.9% 100 ML BAG 100 ML IVPB SCH (20:38)
[2017-10-05] MEDS: OLANZapine ZYDIS ODT 5MG TABDP PO SCH (20:38)
[2017-10-05] MEDS ORDERED: NS(*) 0.9% 1000 ML BAG 1,000 ML IV PRN (23:23)
[2017-10-05] MEDS ORDERED: NS(*) 0.9% 500 ML BAG 500 ML IV ONE (23:25)
[2017-10-06] VITALS (7 sets, daily range): BP systolic 106–139; BP diastolic 66–95
[2017-10-06] MEDS: VANCOMYCIN 1 GM ADDVIAL 1 GM in NS(*) 0.9% 250 ML ADDVAN BAG 250 ML IVPB SCH (02:41)
[2017-10-06] MEDS: HYDROmorphone HCL 2 MG/ML SDV IVP PRN ×4 (04:04→18:30)
[2017-10-06] MEDS: IMIPENEM/CILASTA(*) 500MG VIAL 500 MG in NS(*) 0.9% 100 ML BAG 100 ML IVPB SCH ×4 (04:19→22:12)
[2017-10-06 06:02] LABS: PLATELET COUNT, AUTOMATED 481 K/uL (150-450)
--- NOTE | 2017-10-06 06:39 | RADIOLOGY IMAGING REPORT ---
[place] [facility] [place]: Matthew [place] : 1960 MR: [id number] V: [id number] EXAM DATE: ORDERING PHYSICIAN: ZACH CLAUDIO TECHNOLOGIST: [facility] Patient: Matthew Roth : 1960 Visit/Account:[id number] Date of Sevice: 10/06/2017 KUB SINGLE VIEW ABDOMEN HISTORY: Small bowel obstruction. COMPARISON: 10/05/2017 and studies dating to 02/19/2017. FINDINGS: 2 supine views were obtained. NG tube terminates within the stomach. The side-port is in th e distal esophagus. There is a Wood catheter. There is a left lower quadrant ostomy. Distrubution of bowel gas is normal with bowel in all four quadrants as well as centrally. There are persistently dilated small bowel loops, although the number of dilated bowel loops has decreased. No free air. There is bibasilar atelectasis, mild. IMPRESSION: 1. There are fewer dilated small bowel loops, suggesting improving small bowel obstruction. 2. NG tube terminates in the stomach, although the side-port is at the lower esophagus, and it could be advanced [address] the side-port within the stomach. Report Dictated By: Serene Fuentes at 10/06/2017 6:32 AM Report E-Signed By: Serene Fuentes at 10/06/2017 6:35 AM WSN:[id number]
--- NOTE | 2017-10-06 07:17 | General Surgery Progress Note ---
Subjective Progress Notes Subjective No complaints this morning. Physical Exam Vital Signs Date Time Temp Pulse Resp B/P (MAP) Pulse Ox O2 Delivery O2 Flow Rate FiO2 10/06/17 06:14 100.1 10/06/17 02:37 116 18 106/91 (96) 94 Oxy Mask 3.5 General Appearance: Alert, Awake, No Acute Distress GI: Soft and Non-Tender (Mild diffuse TTP, decreasing distension, no peritoneal signs. Stoma with white patches on it and areas of necrosis on inferior portion but rest is pink. Digital exam performed, stoma is widely patent.) Result Diagram: 10/06/1751210/06/17512 Assessment and Plan Problems: (1) Small bowel obstruction due to postoperative adhesions Status: Acute Assessment & Plan: 10/04/17: Admit, nothing by mouth, IV fluids, bowel rest, conservative management start with. We'll follow his x-rays and NG tube output as well as stoma output. We will hold off on any sort of surgery until he is about 6 weeks out from his initial resection surgery. Hopefully he will respond to conservative management. His last meal was yesterday and his mother reports that he has been eating reasonably well. If he is unable to eat and about 5 or 6 days then we will need to consider a PICC line and starting TPN. I have explained this plan to the patient's mother and she seems to understand and seems to be agreeable with this plan. 10/05/17: Continued small bowel obstruction clinically and radiographically based on his KUB this morning. Will continue conservative management with NG tube decompression, bowel rest, and IV fluids. Continue IV antibiotics for pneumonia. If he fails to get better in the next several days may consider diagnostic laparoscopy with drainage of the pelvic fluid collection and inspection of his small bowel. We'll let his small bowel decompress further before contemplating this. 10/06/17: Will give po gastrograffin and will get CT this afternoon. KUB a little better but not much function from stoma. May need to consider exploratory laparoscopy tomorrow if not getting better. Stoma with white patches and area of necrosis on inferior portion only. Possibly the stoma appliance was cut too tight and pressing on the stoma, will need to follow this. Will add antifungal coverage in case white patches represent fungal infection of stoma although I don't recall every having seen this. Pt still with intermittent low grade fevers on broad spectrum antibiotic coverage so antifungal coverage will broaden that coverage as well. O/W, CCM. (2) Pneumonia Status: Acute Assessment & Plan: Hospitalist helping to manage this, according to Dr. Orourke 's note: It appears he may have a left basilar pneumonia. Findings are rather minimal on CXR and CT scan. The Primaxin and vancomycin should cover very well. I suspect his increased oxygen requirement may be related to his sedation/ medications. Will see how he responds to the Romazicon. (3) Pelvic fluid collection Status: Chronic Assessment & Plan: We'll need to follow this. If he is developing an abscess then this will need to be drained. We'll follow his fevers, white blood cell count, and rest of his vitals as he responds to the antibiotics for the pneumonia. (4) Urinary retention with incomplete bladder emptying Status: Acute Assessment & Plan: Wood catheter inserted. We'll remove in the next couple of days and monitor his bladder function. Condition Stable. Time Spent: < 30 min Exam Sepsis Risk: No Definite Risk Problem Qualifiers (1) Pneumonia: Pneumonia type: due to unspecified organism Laterality: unspecified laterality Lung location: unspecified part of lung Qualified Codes: J18.9 - Pneumonia, unspecified organism ZACH CLAUDIO MD Oct 06, 2017 07:17
[2017-10-06] MEDS ORDERED: DIATRIZOATE MEGL/DIATRIZOA SOD 367 MG/ML SOLN PO ONE (08:00)
[2017-10-06] MEDS ORDERED: FLUCONAZOLE 200 MG/100ML PRMIX 100 ML IVPB SCH (09:00)
[2017-10-06] MEDS: PANTOPRAZOLE SOD 40 MG IV VIAL IVP SCH (09:18)
[2017-10-06] MEDS: ENOXAPARIN 40 MG/0.4ML SYR SC SCH (09:24)
[2017-10-06] MEDS: NS 0.9% IVPB SCH (09:27)
[2017-10-06] MEDS: VALPROATE SOD IVPB SCH (09:27)
[2017-10-06] MEDS ORDERED: FUROSEMIDE 40 MG/4 ML VIAL IVP SCH (10:00)
--- NOTE | 2017-10-06 10:04 | RADIOLOGY IMAGING REPORT ---
FACILITY: [facility] - [place] PATIENT NAME: Matthew Roth : 1960 MR: [id number] V: [id number] EXAM DATE: ORDERING PHYSICIAN: AIDEN KAUR TECHNOLOGIST: Location: [facility] Patient: Matthew Roth : 1960 Visit/Account:[id number] Date of Sevice: 10/06/2017 Exam type: CHEST SINGLE AP History: FEVER, COUGH Comparison: October 04, 2017. Findings: Patchy airspace consolidation is now noted in the right midlung field there is also increasing by bas ilar atelectasis. No evidence of overt pulmonary edema. Cardiac swelling is normal in size. NG tub e again noted IMPRESSION: 1. Increasing patchy airspace consolidation now seen in the right midlung field likely related to pn eumonia Increasing bibasal atelectasis Report Dictated By: Keena Herrera MD at 10/06/2017 9:07 AM Report E-Signed By: Keena Herrera MD at 10/06/2017 10:01 AM WSN:[email or web address]
--- NOTE | 2017-10-06 10:36 | Hospitalist Progress Note ---
Subjective Progress Notes Subjective He has complaints of abdominal pain this morning. He had some development of fever overnight. Patient Complains of: Cardiovascular: No: Chest Pain Respiratory: No: Shortness of Breath Physical Exam Vital Signs Date Time Temp Pulse Resp B/P (MAP) Pulse Ox O2 Delivery O2 Flow Rate FiO2 10/06/17 07:09 99.0 107 16 139/89 (106) 91 Nasal Cannula 3.0 General Appearance: Alert, Awake, No Acute Distress, Afebrile Neuro: No Gross deficits Cardiovascular: Regular Rate and Rhythm Respiratory: No Respiratory Distress, Other (lungs sounds right lung rales, wet ) GI: Other (pain noted to abdomen) Extremities: No Edema Psych: Alert & Oriented X3, Appropriate Mood & Affect Result Diagram: 10/06/1751210/06/17512 Assessment and Plan Problems: (1) Pneumonia Status: Acute Assessment & Plan: He was admitted with what appears to be left basilar pneumonia. Findings were rather minimal on CXR and CT scan. He was started Primaxin and vancomycin. CXR this morning was repeated which shows worsening bilateral basilar atelectasis. We will try flutter therapy, start Duonebs scheduled, and also try Lasix IVP to decrease any fluid retention in his lungs. (2) Somnolence Status: Acute Assessment & Plan: It was secondary to medications. He was given a dose of Romazicon and responded well. (3) OCD (obsessive compulsive disorder) Status: Chronic Assessment & Plan: He is on chronic treatment with Olanzapine and Depakote. Exam Sepsis Risk: No Definite Risk Problem Qualifiers (1) Pneumonia: Pneumonia type: due to unspecified organism Laterality: unspecified laterality Lung location: unspecified part of lung Qualified Codes: J18.9 - Pneumonia, unspecified organism AIDEN KAUR PURIFICATION OPERATOR HELPER Oct 06, 2017 10:36
[2017-10-06] MEDS: KCL/D1/2NS 20 MEQ 1000 ML 1,000 ML IV SCH (10:50)
[2017-10-06] MEDS ORDERED: VANCOMYCIN 1 GM ADDVIAL 1 GM in NS(*) 0.9% 250 ML ADDVAN BAG 250 ML IVPB SCH (11:00)
[2017-10-06] MEDS ORDERED: VANCOMYCIN(*) 1 GM VIAL 1 GM, VANCOMYCIN (*) 0.5 GM VIAL 0.25 GM in NS(*) 0.9% 250 ML B... IVPB SCH (11:08)
[2017-10-06] MEDS ORDERED: VANCOMYCIN(*) 1 GM VIAL 1 GM, VANCOMYCIN (*) 0.5 GM VIAL 0.5 GM in NS(*) 0.9% 250 ML BA... IVPB SCH ×2 (11:13→11:15)
[2017-10-06] MEDS: ALBUTEROL/IPRATROPIUM 3 ML NEB NEB SCH ×2 (11:20→17:03)
[2017-10-06] MEDS: VANCOMYCIN(*) 1 GM VIAL 1 GM, VANCOMYCIN (*) 0.5 GM VIAL 0.5 GM in NS(*) 0.9% 250 ML BA... IVPB SCH ×2 (11:41→18:30)
[2017-10-06] MEDS: FLUCONAZOLE 200 MG/100ML PRMIX 100 ML IVPB SCH (12:22)
[2017-10-06] MEDS ORDERED: IOPAMIDOL 76% 75 ML INFUS BTL 75 ML ONE (14:06)
--- NOTE | 2017-10-06 16:17 | RADIOLOGY IMAGING REPORT ---
FACILITY: [facility] - [place] PATIENT NAME: Matthew Roth : 1960 MR: [id number] V: [id number] EXAM DATE: ORDERING PHYSICIAN: ZACH CLAUDIO TECHNOLOGIST: Location: [facility] Patient: Matthew Roth : 1960 Visit/Account:[id number] Date of Sevice: 10/06/2017 ABDOMEN/PELVIS WITH CONTRAST HISTORY: SBO, presacral fluid collection TECHNIQUE: Following administration of IV contrast contiguous axial images acquired through the abdom en/pelvis. Coronal and sagittal reformatting also performed. Dose Lowering Technique One of the following dose optimization techniques was utilized in the performance of this exam: Autom ated exposure control; adjustment of the mA and/or kV according to the patient's size; or use of an i terative reconstruction technique. Specific details can be referenced in the facility's radiology C T exam operational policy. CONTRAST: 75 mL Isovue-370 COMPARISON: October 04, 2017 FINDINGS: Visualized lung bases: There is been development of small bilateral posterior layering pleural effus ions and compressive atelectasis in both lower lobes. Patchy airspace disease in the inferior lingul a right middle lobe again noted likely related to pneumonia Hepatobiliary: Negative. Spleen: Negative. Adrenals: Negative. Pancreas: Negative. Kidneys ureters or bladder: Subcentimeter hypodensities in the kidneys likely represent cysts althoug h too small to characterize. The bladder is decompressed by Wood catheter. There Is a small amoun t of air within the bladder likely related to Wood catheter insertion Genitalia: Negative. GI: Numerous dilated fluid-filled and contrast-filled loops of small bowel are seen throughout the a bdomen. The degree of small bowel distention is slightly improved. A transitional point remains in the pelvis where there are numerous thickened enhancing loops of small bowel adjacent to the presacra l fluid collection which remains unchanged. The colon does not appear distended. There are postsurg ical changes from resection of the rectum. The diverting colostomy in the left lower quadrant is aga in seen with a peristomal hernia now evident containing a loop of air-filled small bowel. . An NG t ube in the stomach distal tip projects at the gastric antrum Vessels/spaces/nodes: Mild vascular calcification seen throughout the abdomen and pelvis Bones/soft tissues: Mild spondylotic changes of the thoracolumbar spine again seen is mild anterior wedging in several lower thoracic vertebral bodies appears unchanged Additional findings: None pertinent. IMPRESSION: Again noted is a small bowel obstruction with slight decrease in dilatation of the small bowel. The colon remains decompressed. Transitional point appears to be within the pelvis where there are multi ple loops of thickened enhancing small bowel adjacent to presacral fluid collection (this collection has remained stable) Postsurgical changes from rectal resection Small bilateral posterior layering pleural effusions and compressive atelectasis in both lower lobes which has occurred since the prior study Patchy airspace consolidation in the inferior lingula and right middle lobe again noted consistent wi th pneumonia Additional chronic findings as described Report Dictated By: Keena Herrera MD at 10/06/2017 4:04 PM Report E-Signed By: Keena Herrera MD at 10/06/2017 4:13 PM EVANN:AMICIVN
[2017-10-06] MEDS: OLANZapine ZYDIS ODT 5MG TABDP PO SCH (20:30)
[2017-10-06] MEDS: VALPROATE SOD 100 MG/ML VIAL 1,000 MG in NS(*) 0.9% 100 ML BAG 100 ML IVPB SCH (20:31)
[2017-10-07] VITALS (11 sets, daily range): BP systolic 116–147; BP diastolic 73–91
[2017-10-07] MEDS: KCL/D1/2NS 20 MEQ 1000 ML 1,000 ML IV SCH (02:15)
[2017-10-07] MEDS: VANCOMYCIN(*) 1 GM VIAL 1 GM, VANCOMYCIN (*) 0.5 GM VIAL 0.5 GM in NS(*) 0.9% 250 ML BA... IVPB SCH ×3 (03:23→23:58)
[2017-10-07] MEDS: IMIPENEM/CILASTA(*) 500MG VIAL 500 MG in NS(*) 0.9% 100 ML BAG 100 ML IVPB SCH ×3 (04:30→16:26)
[2017-10-07] MEDS: ALBUTEROL/IPRATROPIUM 3 ML NEB NEB SCH ×4 (05:26→21:35)
[2017-10-07 06:30] LABS: PLATELET COUNT, AUTOMATED 422 K/uL (150-450)
--- NOTE | 2017-10-07 07:08 | General Surgery Progress Note ---
Subjective Progress Notes Subjective No complaints, wants water. Physical Exam Vital Signs Date Time Temp Pulse Resp B/P (MAP) Pulse Ox O2 Delivery O2 Flow Rate FiO2 10/07/17 05:31 102 16 10/07/17 05:26 92 Oxy Mask 5.0 10/07/17 02:57 99.9 143/85 (104) General Appearance: Alert, Awake, No Acute Distress, Afebrile GI: Soft and Non-Tender (Stoma is pink with white patches on it. No gas or stool in bag.) Extremities: Warm, Perfused Result Diagram: 10/07/17 0510/07/17528 Assessment and Plan Problems: (1) Small bowel obstruction due to postoperative adhesions Status: Acute Assessment & Plan: 10/04/17: Admit, nothing by mouth, IV fluids, bowel rest, conservative management start with. We'll follow his x-rays and NG tube output as well as stoma output. We will hold off on any sort of surgery until he is about 6 weeks out from his initial resection surgery. Hopefully he will respond to conservative management. His last meal was yesterday and his mother reports that he has been eating reasonably well. If he is unable to eat and about 5 or 6 days then we will need to consider a PICC line and starting TPN. I have explained this plan to the patient's mother and she seems to understand and seems to be agreeable with this plan. 10/05/17: Continued small bowel obstruction clinically and radiographically based on his KUB this morning. Will continue conservative management with NG tube decompression, bowel rest, and IV fluids. Continue IV antibiotics for pneumonia. If he fails to get better in the next several days may consider diagnostic laparoscopy with drainage of the pelvic fluid collection and inspection of his small bowel. We'll let his small bowel decompress further before contemplating this. 10/06/17: Will give po gastrograffin and will get CT this afternoon. KUB a little better but not much function from stoma. May need to consider exploratory laparoscopy tomorrow if not getting better. Stoma with white patches and area of necrosis on inferior portion only. Possibly the stoma appliance was cut too tight and pressing on the stoma, will need to follow this. Will add antifungal coverage in case white patches represent fungal infection of stoma although I don't recall every having seen this. Pt still with intermittent low grade fevers on broad spectrum antibiotic coverage so antifungal coverage will broaden that coverage as well. O/W, CCM. 10/07/17: Not much change. No stoma output. KUB has not yet been done this morning. Labs OK. Still with low grade fevers. WBC normal, neutrophil count coming down. CT abd/pelvis yesterday with decreased small bowel distension but still with evidence of SBO, fluid collection in unchanged, no free fluid or air. 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 Will await KUB. Getting to the point where we will need to consider PICC line and starting TPN. May discuss laparoscopic exploration later today; will discuss with patient's mother. (2) Pneumonia Status: Acute Assessment & Plan: Continue abx, managed by Hospitalists. (3) Pelvic fluid collection Status: Chronic Assessment & Plan: We'll need to follow this. If he is developing an abscess then this will need to be drained. We'll follow his fevers, white blood cell count, and rest of his vitals as he responds to the antibiotics for the pneumonia. Will drain if requires laparoscopic exploration (4) Urinary retention with incomplete bladder emptying Status: Acute Assessment & Plan: Wood catheter inserted. We'll remove in the next couple of days and monitor his bladder function. Condition Stable. Time Spent: < 30 min Exam Sepsis Risk: No Definite Risk Problem Qualifiers (1) Pneumonia: Pneumonia type: due to unspecified organism Laterality: unspecified laterality Lung location: unspecified part of lung Qualified Codes: J18.9 - Pneumonia, unspecified organism ZACH CLAUDIO MD Oct 07, 2017 07:08
--- NOTE | 2017-10-07 07:53 | RADIOLOGY IMAGING REPORT ---
FACILITY: [facility] PATIENT NAME: Matthew Roth : 1960 MR: [id number] V: [id number] EXAM DATE: ORDERING PHYSICIAN: ZACH CLAUDIO TECHNOLOGIST: Location: [facility] Patient: Matthew Roth : 1960 Visit/Account:[id number] Date of Sevice: 10/07/2017 KUB SINGLE VIEW ABDOMEN HISTORY: Small bowel obstruction. Follow-up. COMPARISON: 10/06/2017 and studies dating to 02/19/2017. FINDINGS: A single AP supine view of the abdomen was obtained. Distrubution of bowel gas is normal with bowel in all four quadrants as well as centrally. There are persistently dilated small bowel loops, although they are slightly less distended. There is greater g as within colon. No free air. NG tube terminates in the stomach. There is an ostomy in the left lower quadrant. There is a Wood ca theter. IMPRESSION: 1. Findings compatible with improving small bowel obstruction. Report Dictated By: Serene Fuentes at 10/07/2017 7:47 AM Report E-Signed By: Serene Fuentes at 10/07/2017 7:49 AM WSN:[id number]
--- NOTE | 2017-10-07 08:40 | Hospitalist Progress Note ---
Subjective Progress Notes Subjective He has no concerns this morning. Patient Complains of: Cardiovascular: No: Chest Pain Respiratory: No: Shortness of Breath Physical Exam Vital Signs Date Time Temp Pulse Resp B/P (MAP) Pulse Ox O2 Delivery O2 Flow Rate FiO2 10/07/17 07:12 99.7 91 24 127/91 (103) 92 Oxy Mask 4.5 General Appearance: No Acute Distress, Afebrile Neuro: No Gross deficits Cardiovascular: Regular Rate and Rhythm Respiratory: No Respiratory Distress, Clear to Auscultation GI: Soft and Non-Tender Psych: Alert & Oriented X3, Appropriate Mood & Affect Result Diagram: 10/07/1752810/07/17528 Assessment and Plan Problems: (1) Pneumonia Status: Acute Assessment & Plan: He was admitted with what appears to be left basilar pneumonia. Findings were rather minimal on CXR and CT scan. He was started Primaxin and vancomycin. CXR 10/06 showed worsening bilateral basilar atelectasis. We will use flutter therapy and nebs. Yesterday we did try a dose of Lasix IVP to decrease any fluid retention in his lungs, which showed much improvement in his lung sounds this morning. (2) Somnolence Status: Acute Assessment & Plan: It was secondary to medications. He was given a dose of Romazicon and responded well. (3) OCD (obsessive compulsive disorder) Status: Chronic Assessment & Plan: He is on chronic treatment with Olanzapine and Depakote. Exam Sepsis Risk: No Definite Risk Problem Qualifiers (1) Pneumonia: Pneumonia type: due to unspecified organism Laterality: unspecified laterality Lung location: unspecified part of lung Qualified Codes: J18.9 - Pneumonia, unspecified organism AIDEN KAUR [employer]CRUFF WORKER Oct 07, 2017 08:39
[2017-10-07] MEDS: NS 0.9% IVPB SCH (08:44)
[2017-10-07] MEDS: VALPROATE SOD IVPB SCH (08:44)
[2017-10-07] MEDS: PANTOPRAZOLE SOD 40 MG IV VIAL IVP SCH (09:13)
[2017-10-07] MEDS: FLUCONAZOLE 200 MG/100ML PRMIX 100 ML IVPB SCH ×2 (12:36→13:10)
--- NOTE | 2017-10-07 13:32 | Medical Nutrition Therapy ---
Nutrition Anthropometrics Height (Inches): 67.00 Height (Calculated Centimeters: 170.886831 Weight (Pounds): 156 Weight (Calculated Kilograms): 70.760 Sherman Nutrition Score: Adequate Sherman Nutrition Risk Score: 18 Dietary Referral Nutrition Risk Factors: Nutrition Risk Comment: Physical Findings Physical Appearance: WNR 24.4 Skin Appearance Skin Appearance: Edema Edema Location Modifier: Edema Location: Type of Edema: Degree of Edema: Gastrointestinal Symptoms GI Symtoms: Nausea, Change in Bowel Pattern Tube Present: NG Bowel Sounds: Recent Bowel Pattern: Stool Characteristics: Brown, Soft Nutritional Diagnosis Nutritional Risk Acuity 1: GI Obstruction (SBO) Nutritional Risk Acuity 2: Head/Neck/GI Cancer (Rectal cancer), New Colostomy, Sepsis Past Medical History: fecal incontinence, severe manic bipolar 1 disorder with psychotic behavior, psychogenic polydipsia, hyponatremia, OCD, rectal cancer, SBO, fatigue, weakness, hyperlipidemia, pneumonia, hx colon cancer, pevlic fluid collection Nutritional Acuity: 1-High Nutrition Diagnosis: Inadequate Food Intake Nutrition Etiology: Physiological Causes Nutrition Problem/Etiology/Sym: Inadequate oral intake related to physiological causes as evidence by nausea and vomting for two days. Energy Requirement: 1935 ([place] ) Protein Requirement: 78 (1.1g/kg) Fluid Requirement: 2100 (30ml/kg) Diet Type: NPO/Meds Only Nutrition Intervention: Change diet Nutrition Monitoring & Eval RD Patient Assessment Time: [address] Assessment Type: RD Assessment Patient Nutrition Acuity: 1-High Follow Up Date: Oct 08, 2017 Nutritional Comment: 10/05 Pt admitted for SBO and pneumonia. Pt is experiencing N/V, fever and abdominal pain. Pt is on NPO diet with meds only. Pt has a hx of colon cancer. Pt had a colostomy placed (09/10). Pt mother states the his bowel movements have in his bag have been more bulky. She states that he eats reasonably well. However, in doctor's note he had stated if pt does not eat within the next 5-6 days a PICC line and TPN would be placed. Mother agreed to this plan. Pt WBC was elevated and has reach WNR. Pt is on antibiotics for pneumonia. Pt has pelvic fluid collection and at risk for sepsis. Pt has low Na (130) and low H/H. Continue to monitor pt progress, labs and diet advancement. -MT 10/07 Pt continues on NPO diet, he is now on day three. Pt states that he wants water. Pt still has evidence of SBO and fluid collection. In the doctor's note it states pt is getting to the point where we will need to consider PICC line and starting TPN. Pt may benefit from 1800 ml TPN at 75ml/hr providing 1836 kcal ad 76g protein. This will meet 94% of the pt energy needs and 97% protein. Pt has low alb (2.3), no other concern labs at this time. Will continue to monitor pt progress and TPN order. -[place] DAVID KUMAR Oct 07, 2017 13:19
[2017-10-07] MEDS ORDERED: NORMOSOL R SOLN(*) 1000 ML BAG 1,000 ML IV ONE (15:00)
[2017-10-07] MEDS ORDERED: fentaNYL CITR 250 MCG/5 ML AMP ONE ×2 (15:24)
[2017-10-07] MEDS ORDERED: DEXAMETHASONE SOD PHOS 10MG/ML ONE (15:25)
[2017-10-07] MEDS ORDERED: LIDOCAINE MPF 1% 5 ML VIAL ONE (15:25)
[2017-10-07] MEDS ORDERED: PROPOFOL EMUL(*) 10MG/ML 20 ML 20 ML ONE (15:25)
[2017-10-07] MEDS ORDERED: ONDANSETRON 4 MG/2 ML VIAL ONE (15:25)
[2017-10-07] MEDS ORDERED: ROPIVACAINE 0.5% 20 ML VIAL ONE ×2 (16:47→16:54)
[2017-10-07] MEDS ORDERED: ePHEDrine 25 MG/5 ML DISP.SYR IVP ONE (17:27)
[2017-10-07] MEDS ORDERED: ROCURONIUM BROM 10 MG/ML 10 ML ONE (17:30)
[2017-10-07] MEDS ORDERED: SUGAMMADEX SOD 500 MG/5 ML SDV ONE (17:37)
[2017-10-07] MEDS ORDERED: fentaNYL CITR 100 MCG/2 ML AMP ONE (20:13)
--- NOTE | 2017-10-07 20:16 | Post Operative Progress Note ---
Post Operative Progress Note Date: Oct 07, 2017 Time: 20:02 Surgeon: Jude Dictation number: [id number] Anesthesia: GETA by Dr. Jones Pre-Op Diagnosis: SBO Presacral fluid collection Post-Op Diagnosis: EDGARDO Findings: No stool or pus in abdomen. Dilated loops of small bowel without definitive transition point. Procedure(s): Exploratory laparoscopy Lysis of Adhesions Drainage of presacral fluid collection Specimen Removed:(May be N/A): None Complications: None Fluids: See anesthesia record Estimated Blood Loss: Minimal Date OP Note Dictated: Oct 07, 2017 Time OP Note Dictated: 20:03 ZACH CLAUDIO MD Oct 07, 2017 20:16
[2017-10-07] MEDS: VALPROATE SOD 100 MG/ML VIAL 1,000 MG in NS(*) 0.9% 100 ML BAG 100 ML IVPB SCH (22:23)
[2017-10-07] MEDS: OLANZapine ZYDIS ODT 5MG TABDP PO SCH (22:24)
--- NOTE | 2017-10-07 22:36 | OPERATIVE REPORT 1 ---
EVENT DATE: October 07, 2017 SURGEON: Luis F Roque MD ANESTHESIOLOGIST: Filemon Jones MD ANESTHESIA: General endotracheal anesthesia. PREOPERATIVE DIAGNOSES 1. Postoperative small-bowel obstruction. 2. Presacral fluid collection. 3. Intermittent fevers and tachycardia. POSTOPERATIVE DIAGNOSES 1. Postoperative small-bowel obstruction. 2. Presacral fluid collection. 3. Intermittent fevers and tachycardia. PROCEDURES PERFORMED 1. Exploratory laparoscopy with lysis of adhesions. 2. Drainage of presacral fluid collection. COMPLICATIONS None. CONDITION Stable. BLOOD LOSS Minimal. FINDINGS This patient had a presacral fluid collection consistent with his previous low anterior resection. It was not clearly purulent. It looked like old blood. He had some dilated loops of small bowel, but not tremendously so, and there was no definitive transition point. He did have quite a bit of interloop adhesions as well as adhesions of loops into the pelvis. INDICATIONS This is a 57-year-old gentleman who is one month status post robotic low anterior resection for a rectal cancer. The initial surgery was completed without any problems, and he seemed to recover without any issues, although he was having low-grade temperatures and intermittent tachycardia, but because of his severe, debilitating bipolar disorder and anxiety, he seemed to work himself up and would have the fevers and tachycardia during these episodes. He was treated for pneumonia, but even then, his intermittent fevers and tachycardia did not seem to improve. Clinically, he did well other than those two vital sign abnormalities, and his abdomen was benign. He was ultimately discharged to home. I saw him in the office, and he was doing well and afebrile in the office. Two days prior to admission, he started having increasing abdominal pain with abdominal distention and nausea and vomiting. He also had ceased to have output in his stoma, and this brought him into the Emergency Room where a CT scan was completed, and this revealed a small-bowel obstruction with a presacral fluid collection and pneumonia. He was admitted and started on IV antibiotics and NG decompression with bowel rest. Over the subsequent several days, he has failed to really improve, and he continues to have intermittent low-grade fevers and intermittent tachycardia. Because of this, I have discussed with his mother, who is his decision maker and caregiver , performing exploratory laparoscopy. She was in agreement with this. DESCRIPTION OF PROCEDURE The patient was brought to the operating room and placed supine on the operating table. General endotracheal anesthesia was administered, and his abdomen was prepped and draped in a sterile fashion. I did oversew the stoma, and this was covered out of the sterile field. After the patient was draped, I injected 0.5% ropivacaine plain into the right subcostal skin and made a transverse 5 mm incision in the skin and used a Veress needle to access the abdominal cavity without problems. I insufflated the abdomen to a pressure of 15 mmHg and then inserted a 5 mm, zero-degree scope through an optical 5 mm trocar into the insufflated abdomen. I then switched over to a 30-degree scope and saw that I was in the abdominal cavity safely with no entry-related injuries. I placed another 5 mm port in the left upper quadrant and one in the right mid abdomen. Patient was placed in Trendelenburg, and I began pulling the small bowel out of the pelvis. The small bowel was quite adhesed to each other, consistent with four weeks postop. Ultimately with some work, I was able to pull out most of the loops of small bowel from the pelvis; however, there was one loop that was densely adherent into the pelvis. I did work for quite a while in getting this loop out, and I got into the presacral fluid collection and cleaned this area up, and I was able to get about half way around this loop, but ultimately stalled, and there was really not much that I could do short of opening him up to get the rest of it out, which I did not feel was in this patient's best interest. Having drained the presacral fluid collection and being able to inspect the small bowel and seeing that there was no real transition point or obstruction, and that I could track the small bowel from the dilated area down into the pelvis and then back out of the pelvis into the terminal ileum and into the cecum, and that it all looked healthy, I went ahead and terminated the case at this point. I irrigated and dried the presacral area and then placed a 10 mm flat Jose Alejandro-Ford drain into the presacral space and then pulled it out through the right mid abdominal 5 mm port site and secured this to the skin with a 2-0 nylon suture. The instruments were withdrawn, the abdomen desufflated, and the ports removed. The skin was closed with 4-0 Monocryl subcuticular sutures. Skin was cleaned and dried, and Steri-Strips were applied, followed by sterile surgical dressings and drain dressings. The sutures were removed from the stoma, and a new stoma appliance was placed around the colostomy. The patient was awakened, extubated in the operating room, and transported to the recovery room in stable condition having tolerated the procedure without any apparent problems. RICO
[2017-10-08] VITALS (11 sets, daily range): BP systolic 126–140; BP diastolic 75–91
[2017-10-08] MEDS: KCL/D1/2NS 20 MEQ 1000 ML 1,000 ML IV SCH ×2 (00:35→16:32)
[2017-10-08] MEDS: IMIPENEM/CILASTA(*) 500MG VIAL 500 MG in NS(*) 0.9% 100 ML BAG 100 ML IVPB SCH ×5 (01:04→23:33)
[2017-10-08] MEDS: ALBUTEROL/IPRATROPIUM 3 ML NEB NEB SCH ×3 (05:44→11:14)
[2017-10-08 06:08] LABS: PLATELET COUNT, AUTOMATED 371 K/uL (150-450)
[2017-10-08] MEDS: VANCOMYCIN(*) 1 GM VIAL 1 GM, VANCOMYCIN (*) 0.5 GM VIAL 0.5 GM in NS(*) 0.9% 250 ML BA... IVPB SCH (06:22)
--- NOTE | 2017-10-08 07:21 | General Surgery Progress Note ---
Subjective Progress Notes Subjective No complaints this morning. Physical Exam Vital Signs Date Time Temp Pulse Resp B/P (MAP) Pulse Ox O2 Delivery O2 Flow Rate FiO2 10/08/17 05:45 94 Oxy Mask 5.0 10/08/17 03:00 78 128/76 (93) 10/07/17 21:58 98.7 20 General Appearance: Alert, Awake, No Acute Distress, Afebrile GI: Soft and Non-Tender (Dressing C/D/I. Stoma is pink with inferior mucosal to skin dehiscence. No gas and small amount of liquid in bag.) Extremities: Warm, Perfused Result Diagram: 10/08/17 0535 10/08/17 0535 Assessment and Plan Problems: (1) Small bowel obstruction due to postoperative adhesions Status: Acute Assessment & Plan: 10/04/17: Admit, nothing by mouth, IV fluids, bowel rest, conservative management start with. We'll follow his x-rays and NG tube output as well as stoma output. We will hold off on any sort of surgery until he is about 6 weeks out from his initial resection surgery. Hopefully he will respond to conservative management. His last meal was yesterday and his mother reports that he has been eating reasonably well. If he is unable to eat and about 5 or 6 days then we will need to consider a PICC line and starting TPN. I have explained this plan to the patient's mother and she seems to understand and seems to be agreeable with this plan. 10/05/17: Continued small bowel obstruction clinically and radiographically based on his KUB this morning. Will continue conservative management with NG tube decompression, bowel rest, and IV fluids. Continue IV antibiotics for pneumonia. If he fails to get better in the next several days may consider diagnostic laparoscopy with drainage of the pelvic fluid collection and inspection of his small bowel. We'll let his small bowel decompress further before contemplating this. 10/06/17: Will give po gastrograffin and will get CT this afternoon. KUB a little better but not much function from stoma. May need to consider exploratory laparoscopy tomorrow if not getting better. Stoma with white patches and area of necrosis on inferior portion only. Possibly the stoma appliance was cut too tight and pressing on the stoma, will need to follow this. Will add antifungal coverage in case white patches represent fungal infection of stoma although I don't recall every having seen this. Pt still with intermittent low grade fevers on broad spectrum antibiotic coverage so antifungal coverage will broaden that coverage as well. O/W, CCM. 10/07/17: Not much change. No stoma output. KUB has not yet been done this morning. Labs OK. Still with low grade fevers. WBC normal, neutrophil count coming down. CT abd/pelvis yesterday with decreased small bowel distension but still with evidence of SBO, fluid collection in unchanged, no free fluid or air. 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 Will await KUB. Getting to the point where we will need to consider PICC line and starting TPN. May discuss laparoscopic exploration later today; will discuss with patient's mother. 10/08/17: 4 weeks s/p robotic LAR, POD#1 s/p ex-laparoscopy with RILEY and drainage of presacral fluid. Doing well. WBC normal. Will follow fevers/ vitals, etc. Place PICC today to start TPN. Await return of bowel function. (2) Pneumonia Status: Acute Assessment & Plan: Continue abx, managed by Hospitalists. (3) Pelvic fluid collection Status: Chronic Assessment & Plan: We'll need to follow this. If he is developing an abscess then this will need to be drained. We'll follow his fevers, white blood cell count, and rest of his vitals as he responds to the antibiotics for the pneumonia. Will drain if requires laparoscopic exploration (4) Urinary retention with incomplete bladder emptying Status: Acute Assessment & Plan: Wood catheter inserted. We'll remove in the next couple of days and monitor his bladder function. Condition Stable. Time Spent: < 30 min Exam Sepsis Risk: No Definite Risk Problem Qualifiers (1) Pneumonia: Pneumonia type: due to unspecified organism Laterality: unspecified laterality Lung location: unspecified part of lung Qualified Codes: J18.9 - Pneumonia, unspecified organism ZACH CLAUDIO MD Oct 08, 2017 07:21
--- NOTE | 2017-10-08 07:23 | RADIOLOGY IMAGING REPORT ---
FACILITY: [facility] [place] PATIENT NAME: Matthew Roth : 1960 MR: [id number] V: [id number] EXAM DATE: ORDERING PHYSICIAN: ZACH CLAUDIO TECHNOLOGIST: Location: [facility] - [place] Patient: Matthew Roth : 1960 Visit/Account:[id number] Date of Sevice: 10/08/2017 KUB SINGLE VIEW ABDOMEN HISTORY: Small bowel obstruction. COMPARISON: 11/06/2017 and studies dating to 02/19/2017. FINDINGS: KUB was performed. There is a drain in the right lower quadrant, new. There is a Wood catheter, unchanged. NG or OG tub e terminates within the stomach. There is a left lower quadrant ostomy. Distrubution of bowel gas is normal with bowel in all four quadrants as well as centrally. There is p ersistent dilation of small bowel loops in the upper abdomen. The degree of dilation has mildly progr essed. No free air. IMPRESSION: 1. Persistent small bowel obstruction. Progression of the degree of small bowel dilation. Report Dictated By: Serene Fuentes at 10/08/2017 7:16 AM Report E-Signed By: Serene Fuentes at 10/08/2017 7:18 AM WSN:[id number]
[2017-10-08] MEDS: VALPROATE SOD IVPB SCH (09:08)
[2017-10-08] MEDS: PANTOPRAZOLE SOD 40 MG IV VIAL IVP SCH (09:08)
[2017-10-08] MEDS: NS 0.9% IVPB SCH (09:08)
--- NOTE | 2017-10-08 09:39 | Hospitalist Progress Note ---
Subjective Progress Notes Subjective He has no concerns this morning. He has no acute events overnight. Patient Complains of: Cardiovascular: No: Chest Pain Respiratory: No: Shortness of Breath Physical Exam Vital Signs Date Time Temp Pulse Resp B/P (MAP) Pulse Ox O2 Delivery O2 Flow Rate FiO2 10/08/17 08:05 98.9 85 16 132/80 (97) 91 Oxy Mask 6.0 General Appearance: Alert, Awake, No Acute Distress, Afebrile Neuro: No Gross deficits Cardiovascular: Regular Rate and Rhythm Respiratory: No Respiratory Distress, Other Psych: Alert & Oriented X3, Appropriate Mood & Affect Result Diagram: 10/08/17 0535 10/08/17 0535 Assessment and Plan Problems: (1) Pneumonia Status: Acute Assessment & Plan: He was admitted with what appears to be left basilar pneumonia. Findings were rather minimal on CXR and CT scan. He was started Primaxin and vancomycin. CXR 10/06 showed worsening bilateral basilar atelectasis. We will use flutter therapy and nebs. We did try a dose of Lasix IVP 10/06, which showed much improvement in his lung sounds. We will stop the Vancomycin today and continue Primaxin. (2) Somnolence Status: Acute Assessment & Plan: It was secondary to medications. He was given a dose of Romazicon and responded well. (3) OCD (obsessive compulsive disorder) Status: Chronic Assessment & Plan: He is on chronic treatment with Olanzapine and Depakote. Exam Sepsis Risk: No Definite Risk Problem Qualifiers (1) Pneumonia: Pneumonia type: due to unspecified organism Laterality: unspecified laterality Lung location: unspecified part of lung Qualified Codes: J18.9 - Pneumonia, unspecified organism AIDEN KAUR LINE PREP COOK Oct 08, 2017 09:38
--- NOTE | 2017-10-08 09:48 | Medical Nutrition Therapy ---
Nutrition Anthropometrics Height (Inches): 67.00 Height (Calculated Centimeters: 170.938103 Weight (Pounds): 156 Weight (Calculated Kilograms): 70.760 Sherman Nutrition Score: Adequate Sherman Nutrition Risk Score: 18 Dietary Referral Nutrition Risk Factors: Nutrition Risk Comment: Nutritional Diagnosis Nutritional Risk Acuity 1: TPN/PPN, GI Obstruction (SBO) Nutritional Risk Acuity 2: Head/Neck/GI Cancer (Rectal cancer), New Colostomy, Sepsis Past Medical History: fecal incontinence, severe manic bipolar 1 disorder with psychotic behavior, psychogenic polydipsia, hyponatremia, OCD, rectal cancer, SBO, fatigue, weakness, hyperlipidemia, pneumonia, hx colon cancer, pevlic fluid collection Nutritional Acuity: 1-High Nutrition Diagnosis: Inadequate Food Intake Nutrition Etiology: Physiological Causes Nutrition Problem/Etiology/Sym: Inadequate oral intake related to physiological causes as evidence by nausea and vomting for two days. Energy Requirement: 1935 ([place] ) Protein Requirement: 78 (1.1g/kg) Fluid Requirement: 2100 (30ml/kg) Diet Type: NPO/Meds Only Nutrition Intervention: Change diet Nutritional Support Recommended Enteral / Parental: TPN Recommended Tube Feeding Formu: 75 ml/hr final rate + 250ml lipids/12 hrs Recommended Duration: 24 Recommended Calories: 1836 Recommended Protein: 76 Recommended Lipids Calories: 275 Total Recommended Calories: 2111 Nutrition Monitoring & Eval Nutritional Goals Comment: TPN will meet nutr needs until pt can tolerate oral intake. RD Patient Assessment Time: [address] Assessment Type: RD Re-Assessment Patient Nutrition Acuity: 1-High Follow Up Date: Oct 10, 2017 Nutritional Comment: 10/05 Pt admitted for SBO and pneumonia. Pt is experiencing N/V, fever and abdominal pain. Pt is on NPO diet with meds only. Pt has a hx of colon cancer. Pt had a colostomy placed (09/10). Pt mother states the his bowel movements have in his bag have been more bulky. She states that he eats reasonably well. However, in doctor's note he had stated if pt does not eat within the next 5-6 days a PICC line and TPN would be placed. Mother agreed to this plan. Pt WBC was elevated and has reach WNR. Pt is on antibiotics for pneumonia. Pt has pelvic fluid collection and at risk for sepsis. Pt has low Na (130) and low H/H. Continue to monitor pt progress, labs and diet advancement. -MT 10/07 Pt continues on NPO diet, he is now on day three. Pt states that he wants water. Pt still has evidence of SBO and fluid collection. In the doctor's note it states pt is getting to the point where we will need to consider PICC line and starting TPN. Pt may benefit from 1800 ml TPN at 75ml/hr providing 1836 kcal ad 76g protein. This will meet 94% of the pt energy needs and 97% protein. Pt has low alb (2.3), no other concern labs at this time. Will continue to monitor pt progress and TPN order. -MT 10/08 Pt 4th day NPO. Per Dr notes, pt will start TPN today. Alb has declined to 2. Recommend final TPN rate of 75 ml/hr plus lipids to meet 109% est kcal and 97% est protein needs. JOE AGUAYO Oct 08, 2017 09:17
[2017-10-08] MEDS: FLUCONAZOLE 200 MG/100ML PRMIX 100 ML IVPB SCH (12:55)
[2017-10-08] MEDS: VALPROATE SOD 100 MG/ML VIAL 1,000 MG in NS(*) 0.9% 100 ML BAG 100 ML IVPB SCH (20:23)
[2017-10-08] MEDS: OLANZapine ZYDIS ODT 5MG TABDP PO SCH (20:24)
--- NOTE | 2017-10-08 22:31 | RADIOLOGY IMAGING REPORT ---
FACILITY: [facility] PATIENT NAME: Matthew Roth : 1960 MR: [id number] V: [id number] EXAM DATE: ORDERING PHYSICIAN: ZACH CLAUDIO TECHNOLOGIST: Location: [facility] Patient: Matthew Roth : 1960 Visit/Account:[id number] Date of Sevice: 10/08/2017 Portable chest: Indication: Tube placement. Technique: 2 frontal images were obtained. Comparison: 10/06/2017 Lines and tubes: The tip of the NG tube is in the left upper quadrant of the abdomen, presumably in t he stomach. Skeletal and soft tissue structures: Intact and unremarkable. Heart and mediastinum: Within normal limits. Lung torres: Bilateral parenchymal opacities persist, compatible with pneumonia or atelectasis. There has been slight improvement. No new focal abnormalities are identified. Pleural spaces: Unremarkable. Impression: The NG tube appears to be in the stomach. Report Dictated By: Shen Mar MD at 10/08/2017 10:25 PM Report E-Signed By: Shen Mar MD at 10/08/2017 10:27 PM WSN:[id number]
[2017-10-08] MEDS: ONDANSETRON 4 MG/2 ML VIAL IVP PRN (23:33)
[2017-10-08] MEDS: HYDROmorphone HCL 2 MG/ML SDV IVP PRN (23:50)
[2017-10-09] MEDS: KCL/D1/2NS 20 MEQ 1000 ML 1,000 ML IV SCH ×3 (02:37→22:45)
[2017-10-09] MEDS: IMIPENEM/CILASTA(*) 500MG VIAL 500 MG in NS(*) 0.9% 100 ML BAG 100 ML IVPB SCH ×4 (05:18→23:54)
[2017-10-09 05:29] VITALS: BP 113/70
[2017-10-09] MEDS: ALBUTEROL/IPRATROPIUM 3 ML NEB NEB SCH ×3 (05:39→17:53)
--- NOTE | 2017-10-09 05:58 | RADIOLOGY IMAGING REPORT ---
FACILITY: [facility] PATIENT NAME: Matthew Roth : 1960 MR: [id number] V: [id number] EXAM DATE: ORDERING PHYSICIAN: ZACH CLAUDIO TECHNOLOGIST: Location: [facility] - [place] Patient: Matthew Roth : 1960 Visit/Account:[id number] Date of Sevice: 10/09/2017 Abdomen: Indication: Follow-up evaluation of obstruction. Technique: A single supine film was obtained. Comparison: 10/08/2017 Findings: There is residual contrast material in the proximal colon, which does not appear dilated. T here is persistent dilatation of small bowel loops in the upper abdomen and left midabdomen, suggesti ng partial obstruction versus ileus. An NG tube remains in place. A surgical drain in the pelvis is u nchanged. The skeletal and soft tissue structures are unchanged. IMPRESSION: Persistent dilatation of small bowel loops in the upper abdomen, compatible with partial obstruction versus ileus. Report Dictated By: Shen Mar MD at 10/09/2017 5:49 AM Report E-Signed By: Shen Mar MD at 10/09/2017 5:53 AM WSN:[id number]
[2017-10-09 06:04] LABS: PLATELET COUNT, AUTOMATED 339 K/uL (150-450)
[2017-10-09 07:59] VITALS: BP 115/87
[2017-10-09] MEDS: PANTOPRAZOLE SOD 40 MG IV VIAL IVP SCH (09:23)
[2017-10-09] MEDS: VALPROATE SOD IVPB SCH (09:24)
[2017-10-09] MEDS: NS 0.9% IVPB SCH (09:24)
[2017-10-09] MEDS: ENOXAPARIN 40 MG/0.4ML SYR SC SCH (09:24)
[2017-10-09] MEDS: HYDROmorphone HCL 2 MG/ML SDV IVP PRN (09:27)
--- NOTE | 2017-10-09 10:58 | General Surgery Progress Note ---
Subjective Progress Notes Subjective pulled NGT out last night it was replaced no fevers very little NGT output and no ostomy output sitter at bedside Physical Exam Vital Signs Date Time Temp Pulse Resp B/P (MAP) Pulse Ox O2 Delivery O2 Flow Rate FiO2 10/09/17 08:45 93 Oxy Mask 2.5 10/09/17 07:59 98.2 96 20 115/87 (96) Intake and Output 10/10/17 07:00 Output Total 200 ml Balance -200 ml Drainage Total 200 ml General Appearance: No Acute Distress, Other (not interactive, but awake) Neuro: No Gross deficits ENT: Normal Cardiovascular: Regular Rate and Rhythm Respiratory: No Respiratory Distress GI: Other (stoma pink, no gas or fluid in bag. abd soft and not distended, dressings dry, drain is serosanguinous 170cc output) Extremities: Perfused Integumentary: Skin Intact without Lesion / Mass Psych: Other (withdrawn) Result Diagram: 10/09/17 0537 10/09/17 0537 Assessment and Plan Problems: (1) Small bowel obstruction due to postoperative adhesions Status: Acute Assessment & Plan: 10/04/17: Admit, nothing by mouth, IV fluids, bowel rest, conservative management start with. We'll follow his x-rays and NG tube output as well as stoma output. We will hold off on any sort of surgery until he is about 6 weeks out from his initial resection surgery. Hopefully he will respond to conservative management. His last meal was yesterday and his mother reports that he has been eating reasonably well. If he is unable to eat and about 5 or 6 days then we will need to consider a PICC line and starting TPN. I have explained this plan to the patient's mother and she seems to understand and seems to be agreeable with this plan. 10/05/17: Continued small bowel obstruction clinically and radiographically based on his KUB this morning. Will continue conservative management with NG tube decompression, bowel rest, and IV fluids. Continue IV antibiotics for pneumonia. If he fails to get better in the next several days may consider diagnostic laparoscopy with drainage of the pelvic fluid collection and inspection of his small bowel. We'll let his small bowel decompress further before contemplating this. 10/06/17: Will give po gastrograffin and will get CT this afternoon. KUB a little better but not much function from stoma. May need to consider exploratory laparoscopy tomorrow if not getting better. Stoma with white patches and area of necrosis on inferior portion only. Possibly the stoma appliance was cut too tight and pressing on the stoma, will need to follow this. Will add antifungal coverage in case white patches represent fungal infection of stoma although I don't recall every having seen this. Pt still with intermittent low grade fevers on broad spectrum antibiotic coverage so antifungal coverage will broaden that coverage as well. O/W, CCM. 10/07/17: Not much change. No stoma output. KUB has not yet been done this morning. Labs OK. Still with low grade fevers. WBC normal, neutrophil count coming down. CT abd/pelvis yesterday with decreased small bowel distension but still with evidence of SBO, fluid collection in unchanged, no free fluid or air. 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 Will await KUB. Getting to the point where we will need to consider PICC line and starting TPN. May discuss laparoscopic exploration later today; will discuss with patient's mother. 10/08/17: 4 weeks s/p robotic LAR, POD#1 s/p ex-laparoscopy with RILEY and drainage of presacral fluid. Doing well. WBC normal. Will follow fevers/ vitals, etc. Place PICC today to start TPN. Await return of bowel function. 10/09/17: POD2 ex laparoscopy. Awaiting return of bowel function. +BS and minimal NGT output so may be soon. Plan to start TPN on Wednesday. Patient needs to ambulate. Continue abx for pneumonia. Will try to remove perez catheter tomorrow. (2) Pneumonia Status: Acute Assessment & Plan: Continue abx, managed by Hospitalists. (3) Pelvic fluid collection Status: Chronic Assessment & Plan: We'll need to follow this. If he is developing an abscess then this will need to be drained. We'll follow his fevers, white blood cell count, and rest of his vitals as he responds to the antibiotics for the pneumonia. Will drain if requires laparoscopic exploration (4) Urinary retention with incomplete bladder emptying Status: Acute Assessment & Plan: Perez catheter inserted. We'll remove in the next couple of days and monitor his bladder function. Exam Sepsis Risk: No Definite Risk Problem Qualifiers (1) Pneumonia: Pneumonia type: due to unspecified organism Laterality: unspecified laterality Lung location: unspecified part of lung Qualified Codes: J18.9 - Pneumonia, unspecified organism MARISA ANDUJAR MD Oct 09, 2017 10:57
[2017-10-09] MEDS: FLUCONAZOLE 200 MG/100ML PRMIX 100 ML IVPB SCH ×2 (11:30→12:30)
[2017-10-09 11:39] VITALS: BP 114/82
--- NOTE | 2017-10-09 13:18 | Hospitalist Progress Note ---
Subjective Progress Notes Subjective Mr. Roth is a 57-year-old gentleman with PMH of OCD, Bipolar Disorder and Rectal Cancer who is now 3-1/2 weeks status post robotic low anterior resection performed on September 10, for rectal cancer. Surgery was uncomplicated and he was given a colostomy due to chronic fecal incontinence which is possibly psychogenic. He had some low-grade temperatures and intermittent tachycardia postoperatively but a benign abdominal exam and good return of bowel function. He was diagnosed postoperatively with pneumonia and treated with an inpatient course of antibiotics. Ultimately he recovered and was discharged home. He again started feeling poorly with increasing abdominal pain and bloating and presented to the emergency room where a CT scan and abdominal x-ray was consistent with a small bowel obstruction. Also found incidentally was a presacral fluid collection and pneumonia. He was admitted and received treatment for pneumonia and SBO. He underwent ex-laparoscopy with RILEY and drainage of presacral fluid by Dr. Claudio. 10/09: He is afebrile and hemodynamically stable today. Surgical evaluation was done today. Patient Complains of: Neurological: Other (I could not get much info from the patient) Physical Exam Vital Signs Date Time Temp Pulse Resp B/P (MAP) Pulse Ox O2 Delivery O2 Flow Rate FiO2 10/09/17 11:39 98.6 91 16 114/82 (93) 93 Oxy Mask 1.0 Intake and Output 10/10/17 07:00 Output Total 1600 ml Balance -1600 ml Output Urine Total 1400 ml Drainage Total 200 ml General Appearance: No Acute Distress, Afebrile Neuro: No Gross deficits GI: Other (soft and mildly distended, positive BS) Result Diagram: 10/09/17 0537 10/09/17 0537 Assessment and Plan Problems: (1) Pneumonia Status: Acute Assessment & Plan: He was admitted with what appears to be left basilar pneumonia. Findings were rather minimal on CXR and CT scan. He was started Primaxin and vancomycin. CXR 10/06 showed worsening bilateral basilar atelectasis. We will use flutter therapy and nebs. We did try a dose of Lasix IVP 10/06, which showed much improvement in his lung sounds. We will stop the Vancomycin today and continue Primaxin. 10/09: His Vanco was stopped and he is currently on Fluconazole and Primaxin I will continue his current management I will get CBC in am Plan as per surgery for his SBO (2) Somnolence Status: Acute Assessment & Plan: It was secondary to medications. He was given a dose of Romazicon and responded well. 10/09: He is quite somnolent due to medications (3) OCD (obsessive compulsive disorder) Status: Chronic Assessment & Plan: He is on chronic treatment with Olanzapine and Depakote. Time Spent on Plan of Care: < 30 min Copies to: ZACH CLAUDIO MD Exam Sepsis Risk: No Definite Risk Problem Qualifiers (1) Pneumonia: Pneumonia type: due to unspecified organism Laterality: unspecified laterality Lung location: unspecified part of lung Qualified Codes: J18.9 - Pneumonia, unspecified organism MARIO TUTTLE MD Oct 09, 2017 13:18
[2017-10-09 15:34] VITALS: BP 142/92
[2017-10-09 19:01] VITALS: BP 141/88
[2017-10-09] MEDS: VALPROATE SOD 100 MG/ML VIAL 1,000 MG in NS(*) 0.9% 100 ML BAG 100 ML IVPB SCH (20:28)
[2017-10-09] MEDS: OLANZapine ZYDIS ODT 5MG TABDP PO SCH (20:28)
[2017-10-09 23:12] VITALS: BP 129/95
[2017-10-10] MEDS: HYDROmorphone HCL 2 MG/ML SDV IVP PRN ×4 (01:47→21:02)
[2017-10-10 04:24] VITALS: BP 98/80
[2017-10-10 04:28] VITALS: BP 113/68
[2017-10-10] MEDS: IMIPENEM/CILASTA(*) 500MG VIAL 500 MG in NS(*) 0.9% 100 ML BAG 100 ML IVPB SCH ×4 (05:20→23:21)
[2017-10-10] MEDS: ALBUTEROL/IPRATROPIUM 3 ML NEB NEB SCH ×3 (05:36→16:57)
[2017-10-10] MEDS: KCL/D1/2NS 20 MEQ 1000 ML 1,000 ML IV SCH (05:53)
[2017-10-10] MEDS ORDERED: KCL/D1/2NS 20 MEQ 1000 ML 1,000 ML IV SCH (08:00)
--- NOTE | 2017-10-10 08:08 | General Surgery Progress Note ---
Subjective Progress Notes Subjective minimal NGT output no ostomy output no fevers Physical Exam Vital Signs Date Time Temp Pulse Resp B/P (MAP) Pulse Ox O2 Delivery O2 Flow Rate FiO2 10/10/17 07:20 92 20 94 Oxy Mask 2.0 10/10/17 04:28 113/68 (83) 10/10/17 04:24 98.3 Intake and Output 10/11/17 07:00 Output Total 0 ml Balance 0 ml Gastric Drainage Total 0 ml General Appearance: Awake Neuro: No Gross deficits Eyes: Other (sunglasses in place) ENT: Normal Cardiovascular: Normal Rhythm & Peripheral Pulses, Regular Rate and Rhythm Respiratory: Clear to Auscultation, Other (on 2L by facemask) GI: Soft and Non-Tender, Other (goog bowel sounds. incisions c/d/i) : Other (perez in place) Extremities: Perfused Integumentary: Skin Intact without Lesion / Mass Psych: Other (withdrawn affect) Result Diagram: 10/09/17 0537 10/10/17 0712 Assessment and Plan Problems: (1) Small bowel obstruction due to postoperative adhesions Status: Acute Assessment & Plan: 10/04/17: Admit, nothing by mouth, IV fluids, bowel rest, conservative management start with. We'll follow his x-rays and NG tube output as well as stoma output. We will hold off on any sort of surgery until he is about 6 weeks out from his initial resection surgery. Hopefully he will respond to conservative management. His last meal was yesterday and his mother reports that he has been eating reasonably well. If he is unable to eat and about 5 or 6 days then we will need to consider a PICC line and starting TPN. I have explained this plan to the patient's mother and she seems to understand and seems to be agreeable with this plan. 10/05/17: Continued small bowel obstruction clinically and radiographically based on his KUB this morning. Will continue conservative management with NG tube decompression, bowel rest, and IV fluids. Continue IV antibiotics for pneumonia. If he fails to get better in the next several days may consider diagnostic laparoscopy with drainage of the pelvic fluid collection and inspection of his small bowel. We'll let his small bowel decompress further before contemplating this. 10/06/17: Will give po gastrograffin and will get CT this afternoon. KUB a little better but not much function from stoma. May need to consider exploratory laparoscopy tomorrow if not getting better. Stoma with white patches and area of necrosis on inferior portion only. Possibly the stoma appliance was cut too tight and pressing on the stoma, will need to follow this. Will add antifungal coverage in case white patches represent fungal infection of stoma although I don't recall every having seen this. Pt still with intermittent low grade fevers on broad spectrum antibiotic coverage so antifungal coverage will broaden that coverage as well. O/W, CCM. 10/07/17: Not much change. No stoma output. KUB has not yet been done this morning. Labs OK. Still with low grade fevers. WBC normal, neutrophil count coming down. CT abd/pelvis yesterday with decreased small bowel distension but still with evidence of SBO, fluid collection in unchanged, no free fluid or air. 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 Will await KUB. Getting to the point where we will need to consider PICC line and starting TPN. May discuss laparoscopic exploration later today; will discuss with patient's mother. 10/08/17: 4 weeks s/p robotic LAR, POD#1 s/p ex-laparoscopy with RILEY and drainage of presacral fluid. Doing well. WBC normal. Will follow fevers/ vitals, etc. Place PICC today to start TPN. Await return of bowel function. 10/09/17: POD2 ex laparoscopy. Awaiting return of bowel function. +BS and minimal NGT output so may be soon. Plan to start TPN on Wednesday. Patient needs to ambulate. Continue abx for pneumonia. Will try to remove perez catheter tomorrow. 10/10/17: POD3 ex laparoscopy. Still awaiting return of bowel function. Clamp NGT till noon and remove if low residuals and in good position on KUB. continue abx, continue perez. dropped MIVF to 75cc/hr. Patient is not participating with therapy. Good bowel sounds so started bowel reg today, senna s/miralax. (2) Pneumonia Status: Acute Assessment & Plan: Continue abx, managed by Hospitalists. (3) Urinary retention with incomplete bladder emptying Status: Acute Assessment & Plan: Perez catheter inserted. We'll remove in the next couple of days and monitor his bladder function. Exam Sepsis Risk: No Definite Risk Problem Qualifiers (1) Pneumonia: Pneumonia type: due to unspecified organism Laterality: unspecified laterality Lung location: unspecified part of lung Qualified Codes: J18.9 - Pneumonia, unspecified organism MARISA ANDUJAR MD Oct 10, 2017 08:08
[2017-10-10 08:18] VITALS: BP 145/90
[2017-10-10] MEDS: PANTOPRAZOLE SOD 40 MG IV VIAL IVP SCH (08:41)
[2017-10-10] MEDS: ENOXAPARIN 40 MG/0.4ML SYR SC SCH (08:42)
[2017-10-10] MEDS: VALPROATE SOD IVPB SCH (08:42)
[2017-10-10] MEDS: NS 0.9% IVPB SCH (08:42)
--- NOTE | 2017-10-10 08:51 | RADIOLOGY IMAGING REPORT ---
FACILITY: [facility] [place] PATIENT NAME: Matthew Roth : 1960 MR: [id number] V: [id number] EXAM DATE: ORDERING PHYSICIAN: MARISA ANDUJAR TECHNOLOGIST: Location: [facility] - [place] Patient: Matthew Roth : 1960 Visit/Account:[id number] Date of Sevice: 10/10/2017 KUB SINGLE VIEW ABDOMEN obtained at 0802 hours COMPARISON: October 09, 2017 at 0524 hours HISTORY: postop ileus, evaluate position of NGT FINDINGS: BOWEL GAS PATTERN: Contrast in the ascending colon from a prior exam. Moderately dilated loops of sm all bowel in the abdomen. There is minimal gas in the left colon. There is no gas in the rectum. The nasogastric tube tip is in the projection of the proximal gastric body. SOFT TISSUES: No masses or organomegaly. CALCIFICATIONS: None significant. No radiopaque urinary tract calculi. BONES: Negative.No fractures or suspicious osseous lesions. OTHER: Surgical drain in the right pelvis. No abnormal gaseous collections. IMPRESSION: 1. Tip of the feeding tube is in the projection of the proximal gastric body. 2. Dilated small bowel is stable, presumably due to postoperative ileus given the provided history. 3. Residual contrast in the right colon from a prior study. Overall no significant change from yeste rday. Report Dictated By: Dionisio Mahmood at 10/10/2017 8:43 AM Report E-Signed By: Dionisio Mahmood at 10/10/2017 8:46 AM WSN:[id number]
[2017-10-10] MEDS ORDERED: SENNOSIDES 8.6 MG TAB PO SCH (09:00)
[2017-10-10] MEDS ORDERED: POLYETHYLENE GLYCOL 17 GM PKT PO SCH (09:00)
[2017-10-10] MEDS ORDERED: DOCUSATE SODIUM 100 MG CAP PO SCH (09:00)
[2017-10-10] MEDS: FLUCONAZOLE 200 MG/100ML PRMIX 100 ML IVPB SCH (12:09)
--- NOTE | 2017-10-10 12:13 | Hospitalist Progress Note ---
Subjective Progress Notes Subjective This patient was admitted for small bowel obstruction and was also diagnosed with pneumonia. There have been no acute changes overnight. Patient Complains of: Cardiovascular: No: Chest Pain Respiratory: No: Shortness of Breath Physical Exam Vital Signs Date Time Temp Pulse Resp B/P (MAP) Pulse Ox O2 Delivery O2 Flow Rate FiO2 10/10/17 10:50 81 15 10/10/17 10:45 93 Oxy Mask 1.0 10/10/17 08:18 98.9 145/90 (108) Intake and Output 10/11/17 07:00 Output Total 15 ml Balance -15 ml Gastric Drainage Total 0 ml Drainage Total 15 ml Cardiovascular: Regular Rate and Rhythm Respiratory: Clear to Auscultation Result Diagram: 10/09/17 0537 10/10/17 0712 Assessment and Plan Problems: (1) Pneumonia Status: Acute Assessment & Plan: He was diagnosed with what appears to be left basilar pneumonia. Findings were rather minimal on CXR and CT scan. He was started Primaxin and vancomycin. The vancomycin has since been discontinued. He will complete 7 days of treatment with Primaxin tomorrow. (2) Somnolence Status: Acute Assessment & Plan: It was secondary to medications. He was given a dose of Romazicon and responded well. (3) OCD (obsessive compulsive disorder) Status: Chronic Assessment & Plan: He is on chronic treatment with Olanzapine and Depakote. Exam Sepsis Risk: No Definite Risk Problem Qualifiers (1) Pneumonia: Pneumonia type: due to unspecified organism Laterality: unspecified laterality Lung location: unspecified part of lung Qualified Codes: J18.9 - Pneumonia, unspecified organism ZACH ROCK DO Oct 10, 2017 12:13
--- NOTE | 2017-10-10 12:41 | Medical Nutrition Therapy ---
Nutrition Anthropometrics Height (Inches): 67.00 Height (Calculated Centimeters: 170.987443 Weight (Pounds): 156 Weight (Calculated Kilograms): 70.760 Sherman Nutrition Score: Probably Inadequate Sherman Nutrition Risk Score: 18 Dietary Referral Nutrition Risk Factors: Nutrition Risk Comment: Physical Findings Physical Appearance: WNR 24.4 Skin Appearance Skin Appearance: Edema Edema Location Modifier: Edema Location: Type of Edema: Degree of Edema: Gastrointestinal Symptoms GI Symtoms: Change in Bowel Pattern Tube Present: NG Bowel Sounds: Recent Bowel Pattern: Stool Characteristics: Brown, Soft Nutritional Diagnosis Nutritional Risk Acuity 1: GI Obstruction (SBO) Nutritional Risk Acuity 2: Head/Neck/GI Cancer (Rectal cancer), New Colostomy, Sepsis Past Medical History: fecal incontinence, severe manic bipolar 1 disorder with psychotic behavior, psychogenic polydipsia, hyponatremia, OCD, rectal cancer, SBO, fatigue, weakness, hyperlipidemia, pneumonia, hx colon cancer, pevlic fluid collection Nutritional Acuity: 1-High Nutrition Diagnosis: Inadequate Food Intake Nutrition Etiology: Physiological Causes Nutrition Problem/Etiology/Sym: Inadequate oral intake related to physiological causes as evidence by nausea and vomting for two days. Energy Requirement: 1935 ([place] ) Protein Requirement: 78 (1.1g/kg) Fluid Requirement: 2100 (30ml/kg) Diet Type: NPO/Meds Only Nutrition Intervention: Change diet Nutritional Support Recommended Enteral / Parental: TPN Recommended Tube Feeding Formu: 75 ml/hr final rate + 250ml lipids/12 hrs Recommended Duration: 24 Recommended Calories: 1836 Recommended Protein: 76 Recommended Lipids Calories: 275 Total Recommended Calories: 2111 Nutrition Monitoring & Eval Nutrition Goals: Eat 50-100% Meal RD Patient Assessment Time: [address] Assessment Type: RD Re-Assessment Patient Nutrition Acuity: 1-High Follow Up Date: Oct 12, 2017 Nutritional Comment: 10/05 Pt admitted for SBO and pneumonia. Pt is experiencing N/V, fever and abdominal pain. Pt is on NPO diet with meds only. Pt has a hx of colon cancer. Pt had a colostomy placed (09/10). Pt mother states the his bowel movements have in his bag have been more bulky. She states that he eats reasonably well. However, in doctor's note he had stated if pt does not eat within the next 5-6 days a PICC line and TPN would be placed. Mother agreed to this plan. Pt WBC was elevated and has reach WNR. Pt is on antibiotics for pneumonia. Pt has pelvic fluid collection and at risk for sepsis. Pt has low Na (130) and low H/H. Continue to monitor pt progress, labs and diet advancement. -MT 10/07 Pt continues on NPO diet, he is now on day three. Pt states that he wants water. Pt still has evidence of SBO and fluid collection. In the doctor's note it states pt is getting to the point where we will need to consider PICC line and starting TPN. Pt may benefit from 1800 ml TPN at 75ml/hr providing 1836 kcal ad 76g protein. This will meet 94% of the pt energy needs and 97% protein. Pt has low alb (2.3), no other concern labs at this time. Will continue to monitor pt progress and TPN order. -MT 10/08 Pt 4th day NPO. Per Dr notes, pt will start TPN today. Alb has declined to 2. Recommend final TPN rate of 75 ml/hr plus lipids to meet 109% est kcal and 97% est protein needs. 10/10 Low H/H, Alb 2.0, Low Ca+. TPN delayed until Wednesday (10/11), bowel sounds now present. Follow clinical progression. -JEREMIE GONZALEZ Oct 10, 2017 12:41
[2017-10-10 15:50] VITALS: BP 134/84
[2017-10-10 19:44] VITALS: BP 146/78
[2017-10-10] MEDS: OLANZapine ZYDIS ODT 5MG TABDP PO SCH (20:57)
[2017-10-10] MEDS: VALPROATE SOD 100 MG/ML VIAL 1,000 MG in NS(*) 0.9% 100 ML BAG 100 ML IVPB SCH (21:01)
[2017-10-10] MEDS ORDERED: NS(*) 0.9% 250 ML BAG 250 ML ONE (21:08)
[2017-10-10 23:12] VITALS: BP 99/68
[2017-10-11 03:56] VITALS: BP 145/85
[2017-10-11] MEDS: HYDROmorphone HCL 2 MG/ML SDV IVP PRN (04:03)
[2017-10-11] MEDS: KCL/D1/2NS 20 MEQ 1000 ML 1,000 ML IV PRN (05:23)
[2017-10-11] MEDS: IMIPENEM/CILASTA(*) 500MG VIAL 500 MG in NS(*) 0.9% 100 ML BAG 100 ML IVPB SCH (05:24)
[2017-10-11] MEDS: ALBUTEROL/IPRATROPIUM 3 ML NEB NEB SCH ×3 (05:33→16:41)
[2017-10-11] MEDS: ONDANSETRON 4 MG/2 ML VIAL IVP PRN (05:46)
--- NOTE | 2017-10-11 06:41 | General Surgery Progress Note ---
Subjective Progress Notes Subjective complaining of abdominal pain overnight no output from stoma no vomiting abebrile Physical Exam Vital Signs Date Time Temp Pulse Resp B/P (MAP) Pulse Ox O2 Delivery O2 Flow Rate FiO2 10/11/17 05:39 96 20 10/11/17 05:34 94 Nasal Cannula 2.0 10/11/17 03:56 97.8 145/85 (105) General Appearance: Awake, No Acute Distress ENT: Normal Cardiovascular: Regular Rate and Rhythm Respiratory: No Respiratory Distress (mild distension, no tenderness, incisions c/d/i, ostomy pink somewhat edematous) Extremities: Perfused Integumentary: Skin Intact without Lesion / Mass Psych: Other (baseline mood/affect) Result Diagram: 10/09/17 0537 10/10/17 0712 Assessment and Plan Problems: (1) Small bowel obstruction due to postoperative adhesions Status: Acute Assessment & Plan: 10/04/17: Admit, nothing by mouth, IV fluids, bowel rest, conservative management start with. We'll follow his x-rays and NG tube output as well as stoma output. We will hold off on any sort of surgery until he is about 6 weeks out from his initial resection surgery. Hopefully he will respond to conservative management. His last meal was yesterday and his mother reports that he has been eating reasonably well. If he is unable to eat and about 5 or 6 days then we will need to consider a PICC line and starting TPN. I have explained this plan to the patient's mother and she seems to understand and seems to be agreeable with this plan. 10/05/17: Continued small bowel obstruction clinically and radiographically based on his KUB this morning. Will continue conservative management with NG tube decompression, bowel rest, and IV fluids. Continue IV antibiotics for pneumonia. If he fails to get better in the next several days may consider diagnostic laparoscopy with drainage of the pelvic fluid collection and inspection of his small bowel. We'll let his small bowel decompress further before contemplating this. 10/06/17: Will give po gastrograffin and will get CT this afternoon. KUB a little better but not much function from stoma. May need to consider exploratory laparoscopy tomorrow if not getting better. Stoma with white patches and area of necrosis on inferior portion only. Possibly the stoma appliance was cut too tight and pressing on the stoma, will need to follow this. Will add antifungal coverage in case white patches represent fungal infection of stoma although I don't recall every having seen this. Pt still with intermittent low grade fevers on broad spectrum antibiotic coverage so antifungal coverage will broaden that coverage as well. O/W, CCM. 10/07/17: Not much change. No stoma output. KUB has not yet been done this morning. Labs OK. Still with low grade fevers. WBC normal, neutrophil count coming down. CT abd/pelvis yesterday with decreased small bowel distension but still with evidence of SBO, fluid collection in unchanged, no free fluid or air. 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 Will await KUB. Getting to the point where we will need to consider PICC line and starting TPN. May discuss laparoscopic exploration later today; will discuss with patient's mother. 10/08/17: 4 weeks s/p robotic LAR, POD#1 s/p ex-laparoscopy with RILEY and drainage of presacral fluid. Doing well. WBC normal. Will follow fevers/ vitals, etc. Place PICC today to start TPN. Await return of bowel function. 10/09/17: POD2 ex laparoscopy. Awaiting return of bowel function. +BS and minimal NGT output so may be soon. Plan to start TPN on Wednesday. Patient needs to ambulate. Continue abx for pneumonia. Will try to remove perez catheter tomorrow. 10/10/17: POD3 ex laparoscopy. Still awaiting return of bowel function. Clamp NGT till noon and remove if low residuals and in good position on KUB. continue abx, continue perez. dropped MIVF to 75cc/hr. Patient is not participating with therapy. Good bowel sounds so started bowel reg today, senna s/miralax. 10/11/17: POD4 ex laparoscopy. Awaiting bowel function. NGT removed yesterday. Plan PICC/TPN today. Will need swallow eval before taking orals, could not tolerate bowel reg yesterday. May attempt to remove perez today. Ordered labs. (2) Pneumonia Status: Acute Assessment & Plan: Continue abx, managed by Hospitalists. (3) Urinary retention with incomplete bladder emptying Status: Acute Assessment & Plan: Perez catheter inserted. We'll remove in the next couple of days and monitor his bladder function. Exam Sepsis Risk: No Definite Risk Problem Qualifiers (1) Pneumonia: Pneumonia type: due to unspecified organism Laterality: unspecified laterality Lung location: unspecified part of lung Qualified Codes: J18.9 - Pneumonia, unspecified organism MARISA ANDUJAR MD Oct 11, 2017 06:41
[2017-10-11 07:47] VITALS: BP 124/93
[2017-10-11] MEDS: PANTOPRAZOLE SOD 40 MG IV VIAL IVP SCH (07:57)
[2017-10-11] MEDS: ENOXAPARIN 40 MG/0.4ML SYR SC SCH (07:57)
[2017-10-11] MEDS: NS 0.9% IVPB SCH (08:51)
[2017-10-11] MEDS: VALPROATE SOD IVPB SCH (08:51)
--- NOTE | 2017-10-11 10:44 | Hospitalist Progress Note ---
Subjective Progress Notes Subjective He reports mild SOB. No cp. Physical Exam Vital Signs Date Time Temp Pulse Resp B/P (MAP) Pulse Ox O2 Delivery O2 Flow Rate FiO2 10/11/17 08:30 Nasal Cannula 2.0 10/11/17 07:47 98.3 98 12 124/93 (103) 95 Intake and Output 10/12/17 06:59 Intake Total 223 ml Balance 223 ml Intake IV Total 223 ml General Appearance: Alert, Awake, No Acute Distress Cardiovascular: Regular Rate and Rhythm Respiratory: Clear to Auscultation Result Diagram: 10/09/17 0537 10/10/17 0712 Assessment and Plan Problems: (1) Pneumonia Status: Acute Assessment & Plan: He was diagnosed with what appears to be left basilar pneumonia. Findings were rather minimal on CXR and CT scan. He was started Primaxin and vancomycin. The vancomycin has since been discontinued. He will complete 7 days of treatment with Primaxin today, so will stop it. He is afebrile and has a normal WBC. (2) Somnolence Status: Acute Assessment & Plan: It was secondary to medications. He was given a dose of Romazicon and responded well. (3) OCD (obsessive compulsive disorder) Status: Chronic Assessment & Plan: He is on chronic treatment with Olanzapine and Depakote. Exam Sepsis Risk: No Definite Risk Problem Qualifiers (1) Pneumonia: Pneumonia type: due to unspecified organism Laterality: unspecified laterality Lung location: unspecified part of lung Qualified Codes: J18.9 - Pneumonia, unspecified organism KATE HENLEY MD Oct 11, 2017 10:44
[2017-10-11] MEDS ORDERED: LORazepam 2 MG/ML VIAL IVP ONE (11:05)
--- NOTE | 2017-10-11 11:08 | SLP BEDSIDE SWALLOW EVALUATION ---
SPEECH THERAPY ASSESSMENT Physician: Adeel Xie MD Clinician: Becca Coates MS, [facility]WASH RACK OPERATOR Type of Assessment: Bedside Dysphagia Evaluation Patient: Matthew Roth : 58, 57yrs Evaluation Date: 10/10/2017 BACKGROUND The patient is a 57yo male admitted to [facility] on 10/04/17, approximately 3 weeks s/ p robotic lower anterior resection for rectal cancer. Pt developed post- operative pneumonia, but ultimately recovered and was discharged home after receiving course of antibiotics . Pt was re-admitted with small bowel obstruction with incidental discovery of L basilar pneumonia on chest x-ray. Conservative management approach was initiated with recommendations for NPO, IV fluids, and bowel rest. ST evaluation was ordered to analyze swallow structures and function, and to determine oropharyngeal safety for initiating PO intake. Primary Medical Diagnosis: Small bowel obstruction, pneumonia Pain Scale (0-10): Patient w/ inconsistent reports of pain; initially negated any discomfort, then reporting nausea and abdominal pain. When asked to verify, pt again did not endorse any discomfort. LOC / Participation: Alert and cooperative. Some repetitive verbalizations which may be attributed to diagnosis of obsessive compulsive disorder. Follows instructions: yes. Orientation: A&O Functional Communication Deficits impact swallow function/safety, or response to therapy: No; however, psychological hx w/ obsessive compulsive behaviors may negatively impact eating/self-feeding habits. Pt w/ some impulsive consumption of thin liquids, but quickly responded to cues for decreased rate. DYSPHAGIA ASSESSMENT Sialorrhea: No Xerostomia: Yes. Pt encountered independently using oral swabs to provide moisture. Hygiene: WFL Supplemental Oxygen Use: Yes. 2LPM via NC. 02 sats maintained above 93 throughout assessment. Respiratory Rate: Variable. COPD Dx: No. Pain with Swallow: Denies. Oropharyngeal Structure and Function: Oromotor exam was unremarkable w/ adequate strength, speed, coordination, and ROM of all oral musculature. Structures intact. Hyolarygneal elevation and excursion adequate to palpation. Administered PO trials of ice chips, thin liquids via cup sip and straw, pureed solids, and regular solids. Overall, oral and pharyngeal phases of swallow are WFL for normal PO intake pending approval from medical team. Pt w/ appropriate mastication time, adequate bolus formation, timely a-p transit, and clearance of material from oral cavity. Pharyngeally, pt exhibited timely swallow initiation and no overt s/sx of aspiration across PO trials. Of note, pt demonstrated some impulsive behaviors w/ rapid consumption of thin liquids and insistence on continuing puree trials until container was empty. Pt responded to cues for decreased rate of intake, and may benefit from intermittent reminders to take breaks for respiration and oropharyngeal clearance. Aspiration Risk: Minimal. Negative prognostic indicators may include impulsive tendencies and compromised respiratory status. Speech Therapy Need Swallow status is WFL. ST services are not warranted at this time. Please refer if change in status warrants re-evaluation. RECOMMENDATIONS 1. Diet: Regular, thin liquids. 2. Medications: Whole, ok with thin liquids. 3. Compensatory Techniques: regular oral hygiene, upright positioning during PO intake, cues to consume small bites/sips, one at a time. 4. Supervision with meals/snacks: Not warranted. Offer intermittent reminders for swallow safety and continue to monitor impulsive behaviors during PO intake. Thank you for this referral. Becca Coates M.S., CCC-WASH RACK OPERATOR Speech Therapist Physician Signature Date [*] [facility]
[2017-10-11 11:32] VITALS: BP 113/75
--- NOTE | 2017-10-11 11:37 | Antimicrobial Stewardship Note ---
Antimicrobial Stewardship Note Note 57 yo M treated for a L basilar pneumonia who presented with SBO initially 10/04/17- febrile with leukocytosis, cough, currently afebrile and WBC are wnl Chest xray and CT showed L basilar pneumonia 1. Pneumonia- L basilar pneumonia via chest xray and CT, currently afebrile and WBC within normal limits- received the following: -Imipenem/cilastatin -- 10/04 to 10/11-- received full course of treatment for 7 days, d/c antibiotics -Vancomycin - 10/04 to 10/08 - discontinued on 10/08, treatment completed 2. Stomal Yeast Infection-- Per surgeon, stoma has white patches that could represent fungal infection, fluconazole added on 10/06- current, continue course until 7 days of therapy. Recommend d/c at 7 days. Rozina Bourne, PharmD, BCOP ROZINA BOURNE Oct 11, 2017 11:37
[2017-10-11] MEDS ORDERED: LIDOCAINE MPF 1% 5 ML VIAL ONE (13:49)
[2017-10-11] MEDS ORDERED: NS(*) 0.9% 10 ML VIAL 10 ML ONE (13:49)
[2017-10-11] MEDS: FLUCONAZOLE 200 MG/100ML PRMIX 100 ML IVPB SCH (13:56)
--- NOTE | 2017-10-11 18:20 | RADIOLOGY IMAGING REPORT ---
FACILITY: [facility] [place] PATIENT NAME: Matthew Roth : 1960 MR: [id number] V: [id number] EXAM DATE: ORDERING PHYSICIAN: ZACH CLAUDIO TECHNOLOGIST: Location: [facility] [place] Patient: Matthew Roth : 1960 Visit/Account:[id number] Date of Sevice: 10/11/2017 Exam type: PICC LINE PLACEMENT, PICC LINE INSERTION History: PICC line placement Comparison: None. Findings: Informed consent was obtained. The patient's left arm was prepped and draped in usual sterile fashio n. Local anesthesia was accomplished with 1% lidocaine. Utilizing both fluoroscopic and sonographic guidance a 31 cm long trimmed 5 English double lumen power PICC was inserted via the patent left basi lic vein with the distal tip resting in the superior vena cava. Both lumens of power PICC were flush ed with 5 mL of saline flush. Proximal portion PICC line was adhered the patient's arm the sterile d ressing. The procedure was accomplished without apparent cortication. Sonographic images were saved to PACS. The fluoroscopy dose area product was 24.4 micro-Savage per meter squared. IMPRESSION: 1. Successful placement of a 31 cm long trimmed 5 English double lumen power PICC inserted via the pa tent left basilic vein with the distal tip resting in the superior vena cava Report Dictated By: Keena Herrera MD at 10/11/2017 6:13 PM Report E-Signed By: Keena Herrera MD at 10/11/2017 6:16 PM WSN:[email or web address]
--- NOTE | 2017-10-11 18:21 | RADIOLOGY IMAGING REPORT ---
FACILITY: [facility] [place] PATIENT NAME: Matthew Roth : 1960 MR: [id number] V: [id number] EXAM DATE: ORDERING PHYSICIAN: ZACH CLAUDIO TECHNOLOGIST: Location: [facility] Patient: Matthew Roth : 1960 Visit/Account:[id number] Date of Sevice: 10/11/2017 Exam type: PICC LINE PLACEMENT, PICC LINE INSERTION History: PICC line placement Comparison: None. Findings: Informed consent was obtained. The patient's left arm was prepped and draped in usual sterile fashio n. Local anesthesia was accomplished with 1% lidocaine. Utilizing both fluoroscopic and sonographic guidance a 31 cm long trimmed 5 Ghanaian double lumen power PICC was inserted via the patent left basi lic vein with the distal tip resting in the superior vena cava. Both lumens of power PICC were flush ed with 5 mL of saline flush. Proximal portion PICC line was adhered the patient's arm the sterile d ressing. The procedure was accomplished without apparent cortication. Sonographic images were saved to PACS. The fluoroscopy dose area product was 24.4 micro-Savage per meter squared. IMPRESSION: 1. Successful placement of a 31 cm long trimmed 5 Ghanaian double lumen power PICC inserted via the pa tent left basilic vein with the distal tip resting in the superior vena cava Report Dictated By: Keena Herrera MD at 10/11/2017 6:13 PM Report E-Signed By: Keena Herrera MD at 10/11/2017 6:16 PM WSN:[email or web address]
[2017-10-11] MEDS ORDERED: [UNRECOGNIZED DRUG - OTHER] IV ONE (18:30)
[2017-10-11 18:34] VITALS: BP 131/89
[2017-10-11] MEDS: VALPROATE SOD 100 MG/ML VIAL 1,000 MG in NS(*) 0.9% 100 ML BAG 100 ML IVPB SCH (21:22)
[2017-10-11] MEDS: OLANZapine ZYDIS ODT 5MG TABDP PO SCH (23:24)
[2017-10-11 23:42] VITALS: BP 113/76
[2017-10-12] MEDS: HYDROmorphone HCL 2 MG/ML SDV IVP PRN ×2 (00:24→08:07)
[2017-10-12] MEDS: KCL/D1/2NS 20 MEQ 1000 ML 1,000 ML IV PRN ×2 (01:54→18:28)
[2017-10-12 03:11] VITALS: BP 106/73
[2017-10-12] MEDS: ALBUTEROL/IPRATROPIUM 3 ML NEB NEB SCH ×3 (05:12→17:00)
[2017-10-12 06:25] LABS: PLATELET COUNT, AUTOMATED 308 K/uL (150-450)
--- NOTE | 2017-10-12 07:01 | RADIOLOGY IMAGING REPORT ---
FACILITY: [facility] PATIENT NAME: Matthew Roth : 1960 MR: [id number] V: [id number] EXAM DATE: ORDERING PHYSICIAN: ZACH CLADUIO TECHNOLOGIST: [place] [facility] [place] Patient: Matthew Roth : 1960 Visit/Account:[id number] Date of Sevice: 10/12/2017 KUB SINGLE VIEW ABDOMEN INDICATION: Small bowel obstruction versus ileus COMPARISON: October 10, 2017 FINDINGS: 2 supine views obtained. Dilated small bowel in the left mid abdomen is again seen withou t definitive change. Moderate volume colonic stool. A drain projects over the pelvis. No acute osseou s abnormality. IMPRESSION: Unchanged mid abdomen small bowel dilatation. Report Dictated By: Vic Angulo MD at 10/12/2017 6:54 AM Report E-Signed By: Vic Angulo MD at 10/12/2017 6:56 AM WSN:[id number]
--- NOTE | 2017-10-12 07:38 | General Surgery Progress Note ---
Subjective Progress Notes Subjective No complaints but he doesn't really answer my questions this morning although he 's alert. Physical Exam Vital Signs Date Time Temp Pulse Resp B/P (MAP) Pulse Ox O2 Delivery O2 Flow Rate FiO2 10/12/17 05:12 92 Nasal Cannula 2.0 10/12/17 05:12 83 16 10/12/17 03:11 98.4 106/73 (84) General Appearance: Alert, Awake, No Acute Distress, Afebrile GI: Soft and Non-Tender (Stoma is pink, no gas or stool in bag. Incisions all look good.) Extremities: Warm, Perfused Result Diagram: 10/12/17 0615 10/10/17 0712 Assessment and Plan Problems: (1) Small bowel obstruction due to postoperative adhesions Status: Acute Assessment & Plan: 10/04/17: Admit, nothing by mouth, IV fluids, bowel rest, conservative management start with. We'll follow his x-rays and NG tube output as well as stoma output. We will hold off on any sort of surgery until he is about 6 weeks out from his initial resection surgery. Hopefully he will respond to conservative management. His last meal was yesterday and his mother reports that he has been eating reasonably well. If he is unable to eat and about 5 or 6 days then we will need to consider a PICC line and starting TPN. I have explained this plan to the patient's mother and she seems to understand and seems to be agreeable with this plan. 10/05/17: Continued small bowel obstruction clinically and radiographically based on his KUB this morning. Will continue conservative management with NG tube decompression, bowel rest, and IV fluids. Continue IV antibiotics for pneumonia. If he fails to get better in the next several days may consider diagnostic laparoscopy with drainage of the pelvic fluid collection and inspection of his small bowel. We'll let his small bowel decompress further before contemplating this. 10/06/17: Will give po gastrograffin and will get CT this afternoon. KUB a little better but not much function from stoma. May need to consider exploratory laparoscopy tomorrow if not getting better. Stoma with white patches and area of necrosis on inferior portion only. Possibly the stoma appliance was cut too tight and pressing on the stoma, will need to follow this. Will add antifungal coverage in case white patches represent fungal infection of stoma although I don't recall every having seen this. Pt still with intermittent low grade fevers on broad spectrum antibiotic coverage so antifungal coverage will broaden that coverage as well. O/W, CCM. 10/07/17: Not much change. No stoma output. KUB has not yet been done this morning. Labs OK. Still with low grade fevers. WBC normal, neutrophil count coming down. CT abd/pelvis yesterday with decreased small bowel distension but still with evidence of SBO, fluid collection in unchanged, no free fluid or air. 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 Will await KUB. Getting to the point where we will need to consider PICC line and starting TPN. May discuss laparoscopic exploration later today; will discuss with patient's mother. 10/08/17: 4 weeks s/p robotic LAR, POD#1 s/p ex-laparoscopy with RILEY and drainage of presacral fluid. Doing well. WBC normal. Will follow fevers/ vitals, etc. Place PICC today to start TPN. Await return of bowel function. 10/09/17: POD2 ex laparoscopy. Awaiting return of bowel function. +BS and minimal NGT output so may be soon. Plan to start TPN on Wednesday. Patient needs to ambulate. Continue abx for pneumonia. Will try to remove perez catheter tomorrow. 10/10/17: POD3 ex laparoscopy. Still awaiting return of bowel function. Clamp NGT till noon and remove if low residuals and in good position on KUB. continue abx, continue perez. dropped MIVF to 75cc/hr. Patient is not participating with therapy. Good bowel sounds so started bowel reg today, senna s/miralax. 10/11/17: POD4 ex laparoscopy. Awaiting bowel function. NGT removed yesterday. Plan PICC/TPN today. Will need swallow eval before taking orals, could not tolerate bowel reg yesterday. May attempt to remove perez today. Ordered labs. 10/12/17: POD#5. Stable. Started TPN yesterday. KUB with gas throughout colon , I suspect we'll start seeing gas in stoma bag in next day or two. Still some dilated small bowel but colon looks better on KUB. Perez out, patient seems to be urinating without problems. CCM until bowel function returns. (2) Pneumonia Status: Acute Assessment & Plan: Continue abx, managed by Hospitalists. (3) Urinary retention with incomplete bladder emptying Status: Acute Assessment & Plan: Perez catheter inserted. We'll remove in the next couple of days and monitor his bladder function. Condition Stable. Time Spent: < 30 min Exam Sepsis Risk: No Definite Risk Problem Qualifiers (1) Pneumonia: Pneumonia type: due to unspecified organism Laterality: unspecified laterality Lung location: unspecified part of lung Qualified Codes: J18.9 - Pneumonia, unspecified organism ZACH CLAUDIO MD Oct 12, 2017 07:38
--- NOTE | 2017-10-12 09:07 | Hospitalist Progress Note ---
Subjective Progress Notes Subjective He has no complaints this morning. He had no acute events overnight. Patient Complains of: Cardiovascular: No: Chest Pain Respiratory: No: Shortness of Breath Physical Exam Vital Signs Date Time Temp Pulse Resp B/P (MAP) Pulse Ox O2 Delivery O2 Flow Rate FiO2 10/12/17 05:12 92 Nasal Cannula 2.0 10/12/17 05:12 83 16 10/12/17 03:11 98.4 106/73 (84) General Appearance: Alert, Awake, No Acute Distress, Afebrile Neuro: No Gross deficits Cardiovascular: Regular Rate and Rhythm Respiratory: No Respiratory Distress, Clear to Auscultation Psych: Alert & Oriented X3, Appropriate Mood & Affect Result Diagram: 10/12/17 0615 10/12/17 0749 Assessment and Plan Problems: (1) Pneumonia Status: Acute Assessment & Plan: He was diagnosed with what appears to be left basilar pneumonia. Findings were rather minimal on CXR and CT scan. He was started Primaxin and vancomycin. The vancomycin has since been discontinued. He will complete 7 days of treatment with Primaxin today, so will stop it. He is afebrile and has a normal WBC. At this time, hospitalist service will follow from a distance. (2) Somnolence Status: Acute Assessment & Plan: It was secondary to medications. He was given a dose of Romazicon and responded well. (3) OCD (obsessive compulsive disorder) Status: Chronic Assessment & Plan: He is on chronic treatment with Olanzapine and Depakote. Exam Sepsis Risk: No Definite Risk Problem Qualifiers (1) Pneumonia: Pneumonia type: due to unspecified organism Laterality: unspecified laterality Lung location: unspecified part of lung Qualified Codes: J18.9 - Pneumonia, unspecified organism AIDEN KAUR [facility] Oct 12, 2017 09:07
[2017-10-12] MEDS: ENOXAPARIN 40 MG/0.4ML SYR SC SCH (09:42)
[2017-10-12] MEDS: VALPROATE SOD IVPB SCH (09:42)
[2017-10-12] MEDS: NS 0.9% IVPB SCH (09:42)
[2017-10-12] MEDS: PANTOPRAZOLE SOD 40 MG IV VIAL IVP SCH (09:43)
[2017-10-12 10:47] VITALS: BP 110/70
[2017-10-12] MEDS: FLUCONAZOLE 200 MG/100ML PRMIX 100 ML IVPB SCH (13:01)
[2017-10-12 15:52] VITALS: BP 112/78
--- NOTE | 2017-10-12 16:28 | Medical Nutrition Therapy ---
Nutrition Anthropometrics Height (Inches): 67.00 Height (Calculated Centimeters: 170.519016 Weight (Pounds): 146 Weight (Calculated Kilograms): 66.224 Sherman Nutrition Score: Probably Inadequate Sherman Nutrition Risk Score: 16 Dietary Referral Nutrition Risk Factors: Nutrition Risk Comment: Physical Findings Physical Appearance: WNR 24.4 Skin Appearance Skin Appearance: Edema Edema Location Modifier: Edema Location: Type of Edema: Degree of Edema: Gastrointestinal Symptoms GI Symtoms: Change in Bowel Pattern Tube Present: NG Bowel Sounds: Recent Bowel Pattern: Stool Characteristics: Brown, Soft Nutritional Diagnosis Nutritional Risk Acuity 1: GI Obstruction (SBO) Nutritional Risk Acuity 2: Head/Neck/GI Cancer (Rectal cancer), New Colostomy, Sepsis Past Medical History: fecal incontinence, severe manic bipolar 1 disorder with psychotic behavior, psychogenic polydipsia, hyponatremia, OCD, rectal cancer, SBO, fatigue, weakness, hyperlipidemia, pneumonia, hx colon cancer, pevlic fluid collection Nutritional Acuity: 1-High Nutrition Diagnosis: Inadequate Food Intake Nutrition Etiology: Physiological Causes Nutrition Problem/Etiology/Sym: Inadequate oral intake related to physiological causes as evidence by nausea and vomting for two days. Energy Requirement: 1935 ([place] ) Protein Requirement: 78 (1.1g/kg) Fluid Requirement: 2100 (30ml/kg) Diet Type: NPO/Meds Only Nutrition Intervention: Change diet Nutritional Support Recommended Enteral / Parental: TPN Recommended Tube Feeding Formu: 75 ml/hr final rate + 250ml lipids/12 hrs Recommended Duration: 24 Recommended Calories: 1836 Recommended Protein: 76 Recommended Lipids Calories: 275 Total Recommended Calories: 2111 Nutrition Monitoring & Eval RD Patient Assessment Time: [address] Assessment Type: RD Re-Assessment Patient Nutrition Acuity: 1-High Follow Up Date: Oct 15, 2017 Nutritional Comment: 10/05 Pt admitted for SBO and pneumonia. Pt is experiencing N/V, fever and abdominal pain. Pt is on NPO diet with meds only. Pt has a hx of colon cancer. Pt had a colostomy placed (09/10). Pt mother states the his bowel movements have in his bag have been more bulky. She states that he eats reasonably well. However, in doctor's note he had stated if pt does not eat within the next 5-6 days a PICC line and TPN would be placed. Mother agreed to this plan. Pt WBC was elevated and has reach WNR. Pt is on antibiotics for pneumonia. Pt has pelvic fluid collection and at risk for sepsis. Pt has low Na (130) and low H/H. Continue to monitor pt progress, labs and diet advancement. -MT 10/07 Pt continues on NPO diet, he is now on day three. Pt states that he wants water. Pt still has evidence of SBO and fluid collection. In the doctor's note it states pt is getting to the point where we will need to consider PICC line and starting TPN. Pt may benefit from 1800 ml TPN at 75ml/hr providing 1836 kcal ad 76g protein. This will meet 94% of the pt energy needs and 97% protein. Pt has low alb (2.3), no other concern labs at this time. Will continue to monitor pt progress and TPN order. -MT 10/08 Pt 4th day NPO. Per Dr notes, pt will start TPN today. Alb has declined to 2. Recommend final TPN rate of 75 ml/hr plus lipids to meet 109% est kcal and 97% est protein needs. 10/10 Low H/H, Alb 2.0, Low Ca+. TPN delayed until Wednesday (10/11), bowel sounds now present. Follow clinical progression. -DRT 10/12 Continues to have low H/H, low WBC, Na (127), alb (2.1) and elevated K+ (6.9). Pt started TPN (10/11). NG tube and perez removed. Pt did swallowing eval. No concern at this time. Will continue to monitor pt progress and diet advancement. -DAVID VELEZ Oct 12, 2017 10:55
[2017-10-12] MEDS: FAT EMULSION 20% 250 ML BAG 250 ML IVPB SCH (18:27)
[2017-10-12] MEDS ORDERED: [UNRECOGNIZED DRUG - OTHER] IV SCH ×2 (18:30→21:00)
[2017-10-12 19:45] VITALS: BP 113/73
[2017-10-12] MEDS: VALPROATE SOD 100 MG/ML VIAL 1,000 MG in NS(*) 0.9% 100 ML BAG 100 ML IVPB SCH (20:19)
[2017-10-12] MEDS: OLANZapine ZYDIS ODT 5MG TABDP PO SCH (20:23)
[2017-10-12 23:24] VITALS: BP 106/69
[2017-10-13 03:07] VITALS: BP 116/73
[2017-10-13] MEDS: ALBUTEROL/IPRATROPIUM 3 ML NEB NEB SCH ×3 (05:01→18:35)
[2017-10-13 06:22] LABS: PLATELET COUNT, AUTOMATED 327 K/uL (150-450)
--- NOTE | 2017-10-13 07:06 | General Surgery Progress Note ---
Subjective Progress Notes Subjective No complaints. Answers questions this morning but he says he's in no pain. Physical Exam Vital Signs Date Time Temp Pulse Resp B/P (MAP) Pulse Ox O2 Delivery O2 Flow Rate FiO2 10/13/17 05:07 85 16 10/13/17 05:01 92 Room Air 10/13/17 03:07 98.4 116/73 (87) 2.0 General Appearance: Alert, Awake, No Acute Distress, Afebrile GI: Soft and Non-Tender (Incisions look good without erythema or drainage. Drain with serousanguinous drainage) Extremities: Warm, Perfused Result Diagram: 10/13/17 0550 10/13/17 0550 Assessment and Plan Problems: (1) Small bowel obstruction due to postoperative adhesions Status: Acute Assessment & Plan: 10/04/17: Admit, nothing by mouth, IV fluids, bowel rest, conservative management start with. We'll follow his x-rays and NG tube output as well as stoma output. We will hold off on any sort of surgery until he is about 6 weeks out from his initial resection surgery. Hopefully he will respond to conservative management. His last meal was yesterday and his mother reports that he has been eating reasonably well. If he is unable to eat and about 5 or 6 days then we will need to consider a PICC line and starting TPN. I have explained this plan to the patient's mother and she seems to understand and seems to be agreeable with this plan. 10/05/17: Continued small bowel obstruction clinically and radiographically based on his KUB this morning. Will continue conservative management with NG tube decompression, bowel rest, and IV fluids. Continue IV antibiotics for pneumonia. If he fails to get better in the next several days may consider diagnostic laparoscopy with drainage of the pelvic fluid collection and inspection of his small bowel. We'll let his small bowel decompress further before contemplating this. 10/06/17: Will give po gastrograffin and will get CT this afternoon. KUB a little better but not much function from stoma. May need to consider exploratory laparoscopy tomorrow if not getting better. Stoma with white patches and area of necrosis on inferior portion only. Possibly the stoma appliance was cut too tight and pressing on the stoma, will need to follow this. Will add antifungal coverage in case white patches represent fungal infection of stoma although I don't recall every having seen this. Pt still with intermittent low grade fevers on broad spectrum antibiotic coverage so antifungal coverage will broaden that coverage as well. O/W, CCM. 10/07/17: Not much change. No stoma output. KUB has not yet been done this morning. Labs OK. Still with low grade fevers. WBC normal, neutrophil count coming down. CT abd/pelvis yesterday with decreased small bowel distension but still with evidence of SBO, fluid collection in unchanged, no free fluid or air. 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 Will await KUB. Getting to the point where we will need to consider PICC line and starting TPN. May discuss laparoscopic exploration later today; will discuss with patient's mother. 10/08/17: 4 weeks s/p robotic LAR, POD#1 s/p ex-laparoscopy with RILEY and drainage of presacral fluid. Doing well. WBC normal. Will follow fevers/ vitals, etc. Place PICC today to start TPN. Await return of bowel function. 10/09/17: POD2 ex laparoscopy. Awaiting return of bowel function. +BS and minimal NGT output so may be soon. Plan to start TPN on Wednesday. Patient needs to ambulate. Continue abx for pneumonia. Will try to remove perez catheter tomorrow. 10/10/17: POD3 ex laparoscopy. Still awaiting return of bowel function. Clamp NGT till noon and remove if low residuals and in good position on KUB. continue abx, continue perez. dropped MIVF to 75cc/hr. Patient is not participating with therapy. Good bowel sounds so started bowel reg today, senna s/miralax. 10/11/17: POD4 ex laparoscopy. Awaiting bowel function. NGT removed yesterday. Plan PICC/TPN today. Will need swallow eval before taking orals, could not tolerate bowel reg yesterday. May attempt to remove perez today. Ordered labs. 10/12/17: POD#5. Stable. Started TPN yesterday. KUB with gas throughout colon , I suspect we'll start seeing gas in stoma bag in next day or two. Still some dilated small bowel but colon looks better on KUB. Perez out, patient seems to be urinating without problems. CCM until bowel function returns. 10/13/17: POD#6. Doing well but still no evidence of bowel function. Continue bowel rest and TPN. Await return of bowel function. COntinue lovenox and PPI. CCM. (2) Pneumonia Status: Resolved Assessment & Plan: Continue abx, managed by Hospitalists. (3) Urinary retention with incomplete bladder emptying Status: Resolved Assessment & Plan: Perez catheter inserted. We'll remove in the next couple of days and monitor his bladder function. Condition Stable. Time Spent: < 30 min Exam Sepsis Risk: No Definite Risk Problem Qualifiers (1) Pneumonia: Pneumonia type: due to unspecified organism Laterality: unspecified laterality Lung location: unspecified part of lung Qualified Codes: J18.9 - Pneumonia, unspecified organism ZACH CLAUDIO MD Oct 13, 2017 07:06
[2017-10-13] MEDS: ENOXAPARIN 40 MG/0.4ML SYR SC SCH (09:25)
[2017-10-13] MEDS: VALPROATE SOD IVPB SCH (09:25)
[2017-10-13] MEDS: NS 0.9% IVPB SCH (09:25)
[2017-10-13] MEDS: PANTOPRAZOLE SOD 40 MG IV VIAL IVP SCH (09:25)
[2017-10-13] MEDS: KCL/D1/2NS 20 MEQ 1000 ML 1,000 ML IV PRN (09:27)
[2017-10-13] MEDS: HYDROmorphone HCL 2 MG/ML SDV IVP PRN ×2 (10:08→21:47)
--- NOTE | 2017-10-13 10:32 | Medical Nutrition Therapy ---
Nutrition Anthropometrics Height (Inches): 67.00 Height (Calculated Centimeters: 170.117296 Weight (Pounds): 146 Weight (Calculated Kilograms): 66.224 Sherman Nutrition Score: Probably Inadequate Sherman Nutrition Risk Score: 16 Dietary Referral Nutrition Risk Factors: Nutrition Risk Comment: Physical Findings Physical Appearance: WNR 24.4 Skin Appearance Skin Appearance: Edema Edema Location Modifier: Edema Location: Type of Edema: Degree of Edema: Gastrointestinal Symptoms GI Symtoms: Change in Bowel Pattern Tube Present: NG Bowel Sounds: Recent Bowel Pattern: Stool Characteristics: Brown, Soft Nutritional Support Current Enteral / Parental: TPN Tube Feeding Supplement Streng: Full Current Duration: 24 Current Calories: 1838 Current Protein: 76 Current Lipids Calories: 275 Total Current Calories: 2111 kcal Recommended Tube Feeding Formu: 75 ml/hr final rate + 250ml lipids/12 hrs DAVID KUMAR Oct 13, 2017 10:31
[2017-10-13 11:52] VITALS: BP 101/64
[2017-10-13] MEDS: FLUCONAZOLE 200 MG/100ML PRMIX 100 ML IVPB SCH (12:41)
[2017-10-13 17:19] VITALS: BP 114/74
[2017-10-13] MEDS: FAT EMULSION 20% 250 ML BAG 250 ML IVPB SCH (18:30)
[2017-10-13] MEDS: [UNRECOGNIZED DRUG - OTHER] IV SCH (18:30)
[2017-10-13] MEDS: VALPROATE SOD 100 MG/ML VIAL 1,000 MG in NS(*) 0.9% 100 ML BAG 100 ML IVPB SCH (20:22)
[2017-10-13] MEDS: OLANZapine ZYDIS ODT 5MG TABDP PO SCH (20:22)
[2017-10-14] VITALS (7 sets, daily range): BP systolic 92–141; BP diastolic 62–81
[2017-10-14] MEDS: HYDROmorphone HCL 2 MG/ML SDV IVP PRN ×4 (04:43→22:29)
[2017-10-14] MEDS: KCL/D1/2NS 20 MEQ 1000 ML 1,000 ML IV PRN ×2 (04:45→18:27)
[2017-10-14 05:47] LABS: PLATELET COUNT, AUTOMATED 308 K/uL (150-450)
[2017-10-14] MEDS: ALBUTEROL/IPRATROPIUM 3 ML NEB NEB SCH ×2 (05:52→11:25)
--- NOTE | 2017-10-14 06:04 | RADIOLOGY IMAGING REPORT ---
FACILITY: [facility] [place] PATIENT NAME: Matthew Roth : 1960 MR: [id number] V: [id number] EXAM DATE: ORDERING PHYSICIAN: ZACH CLAUDIO TECHNOLOGIST: Location: [facility] [place] Patient: Matthew Roth : 1960 Visit/Account:[id number] Date of Sevice: 10/14/2017 KUB SINGLE VIEW ABDOMEN INDICATION: Bowel obstruction versus ileus COMPARISON: October 12, 2017 FINDINGS: Unchanged moderate volume colonic stool. Dilated small bowel in the midabdomen has slight ly decreased in size. No osseous abnormality. IMPRESSION: Persistent but decreased small bowel dilatation in the midabdomen. No new dilated small bowel loops. Report Dictated By: Vic Angulo MD at 10/14/2017 5:58 AM Report E-Signed By: Vic Angulo MD at 10/14/2017 6:00 AM WSN:[id number]
--- NOTE | 2017-10-14 07:06 | General Surgery Progress Note ---
Subjective Progress Notes Subjective No complaints, but sleeping through most of encounter this morning. Physical Exam Vital Signs Date Time Temp Pulse Resp B/P (MAP) Pulse Ox O2 Delivery O2 Flow Rate FiO2 10/14/17 07:00 98.5 95 12 104/69 (81) 92 Nasal Cannula 2.5 General Appearance: Alert, Awake, No Acute Distress, Afebrile GI: Soft and Non-Tender (Stoma is pink no gas or stool in bag.) Extremities: Warm, Perfused Result Diagram: 10/14/17 0535 10/14/17 0535 Assessment and Plan Problems: (1) Small bowel obstruction due to postoperative adhesions Status: Acute Assessment & Plan: 10/04/17: Admit, nothing by mouth, IV fluids, bowel rest, conservative management start with. We'll follow his x-rays and NG tube output as well as stoma output. We will hold off on any sort of surgery until he is about 6 weeks out from his initial resection surgery. Hopefully he will respond to conservative management. His last meal was yesterday and his mother reports that he has been eating reasonably well. If he is unable to eat and about 5 or 6 days then we will need to consider a PICC line and starting TPN. I have explained this plan to the patient's mother and she seems to understand and seems to be agreeable with this plan. 10/05/17: Continued small bowel obstruction clinically and radiographically based on his KUB this morning. Will continue conservative management with NG tube decompression, bowel rest, and IV fluids. Continue IV antibiotics for pneumonia. If he fails to get better in the next several days may consider diagnostic laparoscopy with drainage of the pelvic fluid collection and inspection of his small bowel. We'll let his small bowel decompress further before contemplating this. 10/06/17: Will give po gastrograffin and will get CT this afternoon. KUB a little better but not much function from stoma. May need to consider exploratory laparoscopy tomorrow if not getting better. Stoma with white patches and area of necrosis on inferior portion only. Possibly the stoma appliance was cut too tight and pressing on the stoma, will need to follow this. Will add antifungal coverage in case white patches represent fungal infection of stoma although I don't recall every having seen this. Pt still with intermittent low grade fevers on broad spectrum antibiotic coverage so antifungal coverage will broaden that coverage as well. O/W, CCM. 10/07/17: Not much change. No stoma output. KUB has not yet been done this morning. Labs OK. Still with low grade fevers. WBC normal, neutrophil count coming down. CT abd/pelvis yesterday with decreased small bowel distension but still with evidence of SBO, fluid collection in unchanged, no free fluid or air. 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 Will await KUB. Getting to the point where we will need to consider PICC line and starting TPN. May discuss laparoscopic exploration later today; will discuss with patient's mother. 10/08/17: 4 weeks s/p robotic LAR, POD#1 s/p ex-laparoscopy with RILEY and drainage of presacral fluid. Doing well. WBC normal. Will follow fevers/ vitals, etc. Place PICC today to start TPN. Await return of bowel function. 10/09/17: POD2 ex laparoscopy. Awaiting return of bowel function. +BS and minimal NGT output so may be soon. Plan to start TPN on Wednesday. Patient needs to ambulate. Continue abx for pneumonia. Will try to remove perez catheter tomorrow. 10/10/17: POD3 ex laparoscopy. Still awaiting return of bowel function. Clamp NGT till noon and remove if low residuals and in good position on KUB. continue abx, continue perez. dropped MIVF to 75cc/hr. Patient is not participating with therapy. Good bowel sounds so started bowel reg today, senna s/miralax. 10/11/17: POD4 ex laparoscopy. Awaiting bowel function. NGT removed yesterday. Plan PICC/TPN today. Will need swallow eval before taking orals, could not tolerate bowel reg yesterday. May attempt to remove perez today. Ordered labs. 10/12/17: POD#5. Stable. Started TPN yesterday. KUB with gas throughout colon , I suspect we'll start seeing gas in stoma bag in next day or two. Still some dilated small bowel but colon looks better on KUB. Perez out, patient seems to be urinating without problems. CCM until bowel function returns. 10/13/17: POD#6. Doing well but still no evidence of bowel function. Continue bowel rest and TPN. Await return of bowel function. COntinue lovenox and PPI. [facility]. 10/14/17: POD#7. Doing well. DAQUAN removed yesterday. KUB continues to improve with gas to distal colon but still no activity from stoma yet. Continue bowel rest and TPN while we await return of bowel function. Continue lovenox and PPI. (2) Pneumonia Status: Resolved Assessment & Plan: Continue abx, managed by Hospitalists. (3) Urinary retention with incomplete bladder emptying Status: Resolved Assessment & Plan: Perez catheter inserted. We'll remove in the next couple of days and monitor his bladder function. Condition Stable. Time Spent: < 30 min Exam Sepsis Risk: No Definite Risk Problem Qualifiers (1) Pneumonia: Pneumonia type: due to unspecified organism Laterality: unspecified laterality Lung location: unspecified part of lung Qualified Codes: J18.9 - Pneumonia, unspecified organism ZACH CLAUDIO MD Oct 14, 2017 07:05
[2017-10-14] MEDS: PANTOPRAZOLE SOD 40 MG IV VIAL IVP SCH (08:05)
[2017-10-14] MEDS: [UNRECOGNIZED DRUG - OTHER] IV SCH ×2 (08:05→20:58)
[2017-10-14] MEDS: ENOXAPARIN 40 MG/0.4ML SYR SC SCH (08:12)
[2017-10-14] MEDS: VALPROATE SOD IVPB SCH (09:54)
[2017-10-14] MEDS: NS 0.9% IVPB SCH (09:54)
[2017-10-14] MEDS: FAT EMULSION 20% 250 ML BAG 250 ML IVPB SCH (17:42)
[2017-10-14] MEDS: FLUCONAZOLE 200 MG/100ML PRMIX 100 ML IVPB SCH (19:41)
[2017-10-14] MEDS: VALPROATE SOD 100 MG/ML VIAL 1,000 MG in NS(*) 0.9% 100 ML BAG 100 ML IVPB SCH (20:56)
[2017-10-14] MEDS: OLANZapine ZYDIS ODT 5MG TABDP PO SCH (20:57)
[2017-10-15] VITALS (8 sets, daily range): BP systolic 92–136; BP diastolic 58–78
[2017-10-15] MEDS: HYDROmorphone HCL 2 MG/ML SDV IVP PRN ×2 (04:34→21:31)
[2017-10-15] MEDS: ALBUTEROL/IPRATROPIUM 3 ML NEB NEB SCH ×2 (05:42→11:06)
[2017-10-15] MEDS: NS(*) 0.9% 250 ML BAG 250 ML IVPB PRN (05:56)
[2017-10-15 06:24] LABS: PLATELET COUNT, AUTOMATED 309 K/uL (150-450)
--- NOTE | 2017-10-15 09:04 | General Surgery Progress Note ---
Subjective Progress Notes Subjective No complaints. No pain. Physical Exam Vital Signs Date Time Temp Pulse Resp B/P (MAP) Pulse Ox O2 Delivery O2 Flow Rate FiO2 10/15/17 08:02 92 Nasal Cannula 2.0 10/15/17 07:27 98.3 95 18 111/75 (87) General Appearance: Alert, Awake, No Acute Distress, Afebrile GI: Soft and Non-Tender (Incisions look good. No erythema or drainage. Stoma is pink. Small amount of gas in the bag. Small liquid stool.) Extremities: Warm, Perfused Result Diagram: 10/15/17 0545 10/15/17 0545 Assessment and Plan Problems: (1) Small bowel obstruction due to postoperative adhesions Status: Acute Assessment & Plan: 10/04/17: Admit, nothing by mouth, IV fluids, bowel rest, conservative management start with. We'll follow his x-rays and NG tube output as well as stoma output. We will hold off on any sort of surgery until he is about 6 weeks out from his initial resection surgery. Hopefully he will respond to conservative management. His last meal was yesterday and his mother reports that he has been eating reasonably well. If he is unable to eat and about 5 or 6 days then we will need to consider a PICC line and starting TPN. I have explained this plan to the patient's mother and she seems to understand and seems to be agreeable with this plan. 10/05/17: Continued small bowel obstruction clinically and radiographically based on his KUB this morning. Will continue conservative management with NG tube decompression, bowel rest, and IV fluids. Continue IV antibiotics for pneumonia. If he fails to get better in the next several days may consider diagnostic laparoscopy with drainage of the pelvic fluid collection and inspection of his small bowel. We'll let his small bowel decompress further before contemplating this. 10/06/17: Will give po gastrograffin and will get CT this afternoon. KUB a little better but not much function from stoma. May need to consider exploratory laparoscopy tomorrow if not getting better. Stoma with white patches and area of necrosis on inferior portion only. Possibly the stoma appliance was cut too tight and pressing on the stoma, will need to follow this. Will add antifungal coverage in case white patches represent fungal infection of stoma although I don't recall every having seen this. Pt still with intermittent low grade fevers on broad spectrum antibiotic coverage so antifungal coverage will broaden that coverage as well. O/W, CCM. 10/07/17: Not much change. No stoma output. KUB has not yet been done this morning. Labs OK. Still with low grade fevers. WBC normal, neutrophil count coming down. CT abd/pelvis yesterday with decreased small bowel distension but still with evidence of SBO, fluid collection in unchanged, no free fluid or air. 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 Will await KUB. Getting to the point where we will need to consider PICC line and starting TPN. May discuss laparoscopic exploration later today; will discuss with patient's mother. 10/08/17: 4 weeks s/p robotic LAR, POD#1 s/p ex-laparoscopy with RILEY and drainage of presacral fluid. Doing well. WBC normal. Will follow fevers/ vitals, etc. Place PICC today to start TPN. Await return of bowel function. 10/09/17: POD2 ex laparoscopy. Awaiting return of bowel function. +BS and minimal NGT output so may be soon. Plan to start TPN on Wednesday. Patient needs to ambulate. Continue abx for pneumonia. Will try to remove perez catheter tomorrow. 10/10/17: POD3 ex laparoscopy. Still awaiting return of bowel function. Clamp NGT till noon and remove if low residuals and in good position on KUB. continue abx, continue perez. dropped MIVF to 75cc/hr. Patient is not participating with therapy. Good bowel sounds so started bowel reg today, senna s/miralax. 10/11/17: POD4 ex laparoscopy. Awaiting bowel function. NGT removed yesterday. Plan PICC/TPN today. Will need swallow eval before taking orals, could not tolerate bowel reg yesterday. May attempt to remove perez today. Ordered labs. 10/12/17: POD#5. Stable. Started TPN yesterday. KUB with gas throughout colon , I suspect we'll start seeing gas in stoma bag in next day or two. Still some dilated small bowel but colon looks better on KUB. Perez out, patient seems to be urinating without problems. CCM until bowel function returns. 10/13/17: POD#6. Doing well but still no evidence of bowel function. Continue bowel rest and TPN. Await return of bowel function. COntinue lovenox and PPI. CCM. 10/14/17: POD#7. Doing well. DAQUAN removed yesterday. KUB continues to improve with gas to distal colon but still no activity from stoma yet. Continue bowel rest and TPN while we await return of bowel function. Continue lovenox and PPI. 10/15/17: POD#8. Doing well but now with mild fevers and intermittent tachycardia. He has no pain and his abdominal exam is benign. Will get CXR and check UA. He's not on abx other than diflucan at this point. Continue bowel rest and TPN until bowel function returns. Continue lovenox, PPI. Hopeful for return of bowel function soon. (2) Pneumonia Status: Resolved Assessment & Plan: Continue abx, managed by Hospitalists. (3) Urinary retention with incomplete bladder emptying Status: Resolved Assessment & Plan: Perez catheter inserted. We'll remove in the next couple of days and monitor his bladder function. Condition Stable. Time Spent: < 30 min Exam Sepsis Risk: No Definite Risk Problem Qualifiers (1) Pneumonia: Pneumonia type: due to unspecified organism Laterality: unspecified laterality Lung location: unspecified part of lung Qualified Codes: J18.9 - Pneumonia, unspecified organism ZACH CLAUDIO MD Oct 15, 2017 09:04
[2017-10-15] MEDS: VALPROATE SOD IVPB SCH (09:26)
[2017-10-15] MEDS: PANTOPRAZOLE SOD 40 MG IV VIAL IVP SCH (09:26)
[2017-10-15] MEDS: ENOXAPARIN 40 MG/0.4ML SYR SC SCH (09:26)
[2017-10-15] MEDS: NS 0.9% IVPB SCH (09:26)
--- NOTE | 2017-10-15 09:55 | RADIOLOGY IMAGING REPORT ---
[facility] PATIENT NAME: Matthew Roth : 1960 MR: [id number] V: [id number] EXAM DATE: ORDERING PHYSICIAN: ZACH CLAUDIO TECHNOLOGIST: Location: [facility] - [place] Patient: Matthew Roth : 1960 Visit/Account:[id number] Date of Sevice: 10/15/2017 CHEST SINGLE AP Additional pertinent History: Fever COMPARISON STUDIES: 02/09/2017 FINDINGS: Support lines and catheters: None Lungs and Pleura: Lung torres well expanded with no infiltrates or consolidations. No parenchymal ma ss lesions are seen. There are no effusions Heart and vasculature: Negative. Angi and Mediastinum: Negative. Bones and Chest wall: Negative. Upper Abdomen: Negative. IMPRESSION: 1. Negative chest Report Dictated By: Ladnen Lundberg MD at 10/15/2017 9:51 AM Report E-Signed By: Landen Lundberg MD at 10/15/2017 9:53 AM WSN:[id number]
[2017-10-15] MEDS: [UNRECOGNIZED DRUG - OTHER] IV SCH (12:06)
--- NOTE | 2017-10-15 13:24 | Medical Nutrition Therapy ---
Nutrition Anthropometrics Height (Inches): 67.00 Height (Calculated Centimeters: 170.454066 Weight (Pounds): 142 Weight (Calculated Kilograms): 64.524 Sherman Nutrition Score: Probably Inadequate Sherman Nutrition Risk Score: 16 Dietary Referral Nutrition Risk Factors: Nutrition Risk Comment: Physical Findings Physical Appearance: WNR 22.3 Skin Appearance Skin Appearance: Edema Edema Location Modifier: Edema Location: Type of Edema: Degree of Edema: Gastrointestinal Symptoms GI Symtoms: Weight Changes, Change in Bowel Pattern Tube Present: NG Bowel Sounds: Recent Bowel Pattern: Stool Characteristics: Brown, Soft Nutritional Diagnosis Nutritional Risk Acuity 1: TPN/PPN, GI Obstruction (SBO) Past Medical History: fecal incontinence, severe manic bipolar 1 disorder with psychotic behavior, psychogenic polydipsia, hyponatremia, OCD, rectal cancer, SBO, fatigue, weakness, hyperlipidemia, pneumonia, hx colon cancer, pevlic fluid collection Nutritional Acuity: 1-High Nutrition Diagnosis: Inadequate Food Intake Nutrition Etiology: Physiological Causes Nutrition Problem/Etiology/Sym: Inadequate oral intake related to physiological causes as evidence by nutrition support from TPN. Energy Requirement: 1935 ([place] ) Protein Requirement: 78 (1.1g/kg) Fluid Requirement: 2100 (30ml/kg) Diet Type: NPO/Meds Only Nutrition Intervention: Nutrition support (TPN ) Nutritional Support Current Enteral / Parental: TPN Tube Feeding Supplement Streng: Full Current Duration: 24 Current Calories: 1838 Current Protein: 76 Current Lipids Calories: 275 Total Current Calories: 2111 kcal Recommended Tube Feeding Formu: 75 ml/hr final rate + 250ml lipids/12 hrs Nutrition Monitoring & Eval RD Patient Assessment Time: [address] Assessment Type: RD Re-Assessment Patient Nutrition Acuity: 1-High Follow Up Date: Oct 18, 2017 Nutritional Comment: 10/05 Pt admitted for SBO and pneumonia. Pt is experiencing N/V, fever and abdominal pain. Pt is on NPO diet with meds only. Pt has a hx of colon cancer. Pt had a colostomy placed (09/10). Pt mother states the his bowel movements have in his bag have been more bulky. She states that he eats reasonably well. However, in doctor's note he had stated if pt does not eat within the next 5-6 days a PICC line and TPN would be placed. Mother agreed to this plan. Pt WBC was elevated and has reach WNR. Pt is on antibiotics for pneumonia. Pt has pelvic fluid collection and at risk for sepsis. Pt has low Na (130) and low H/H. Continue to monitor pt progress, labs and diet advancement. -MT 10/07 Pt continues on NPO diet, he is now on day three. Pt states that he wants water. Pt still has evidence of SBO and fluid collection. In the doctor's note it states pt is getting to the point where we will need to consider PICC line and starting TPN. Pt may benefit from 1800 ml TPN at 75ml/hr providing 1836 kcal ad 76g protein. This will meet 94% of the pt energy needs and 97% protein. Pt has low alb (2.3), no other concern labs at this time. Will continue to monitor pt progress and TPN order. -MT 10/08 Pt 4th day NPO. Per Dr notes, pt will start TPN today. Alb has declined to 2. Recommend final TPN rate of 75 ml/hr plus lipids to meet 109% est kcal and 97% est protein needs. 10/10 Low H/H, Alb 2.0, Low Ca+. TPN delayed until Wednesday (10/11), bowel sounds now present. Follow clinical progression. -DRT 10/12 Continues to have low H/H, low WBC, Na (127), alb (2.1) and elevated K+ (6.9). Pt started TPN (10/11). NG tube and perez removed. Pt did swallowing eval. No concern at this time. Will continue to monitor pt progress and diet advancement. -MT 10/15 No complaints. Pt has mild fever. Pt is still weak and experiencing tremors in both LE. DAQUAN removed yesterday (10/14). Colostomy bag continues to have gas in it, however no BM. Per doctor note continue bowel rest and TPN while we await return of bowel function. Pt urinary retention and pneumonia have been resolved. Pt Na is low (133). Pt is receiving IV Na PRN. Will continue to monitor pt progress, labs and encourage intake.-NM KUMAR,DAVID Oct 15, 2017 10:21
[2017-10-15] MEDS: KCL/D1/2NS 20 MEQ 1000 ML 1,000 ML IV PRN (14:56)
[2017-10-15] MEDS: FAT EMULSION 20% 250 ML BAG 250 ML IVPB SCH (18:24)
[2017-10-15] MEDS: FLUCONAZOLE 200 MG/100ML PRMIX 100 ML IVPB SCH (18:24)
[2017-10-15] MEDS: TAMSULOSIN HCL 0.4 MG CAP PO SCH (18:27)
[2017-10-15] MEDS: OLANZapine ZYDIS ODT 5MG TABDP PO SCH (19:33)
[2017-10-15] MEDS: VALPROATE SOD 100 MG/ML VIAL 1,000 MG in NS(*) 0.9% 100 ML BAG 100 ML IVPB SCH (21:44)
[2017-10-16] MEDS: [UNRECOGNIZED DRUG - OTHER] IV SCH ×2 (00:01→14:02)
[2017-10-16 03:10] VITALS: BP 107/63
[2017-10-16] MEDS: HYDROmorphone HCL 2 MG/ML SDV IVP PRN ×2 (04:05→23:12)
--- NOTE | 2017-10-16 05:33 | RADIOLOGY IMAGING REPORT ---
FACILITY: [facility] - [place] PATIENT NAME: Matthew Roth : 1960 MR: [id number] V: [id number] EXAM DATE: ORDERING PHYSICIAN: ZACH CLAUDIO TECHNOLOGIST: [place] [facility] [place] : 1960 Visit/Account:[id number] Date of Sevice: 10/16/2017 KUB SINGLE VIEW ABDOMEN Indication: SBO vs ileus Comparison: Abdomen radiograph 10/14/2017 Findings: Again seen are dilated loops of small bowel. Moderate amount of stool in colon is seen. The re is no abdominal free air. Lung bases are clear. IMPRESSION: Dilated loops of small bowel, unchanged from 10/14/2017. Differential diagnosis includes m echanical and adynamic ileus. Report Dictated By: Adal hPilip at 10/16/2017 5:27 AM Report E-Signed By: Adal Philip at 10/16/2017 5:29 AM WSN:[id number]
[2017-10-16 05:46] LABS: PLATELET COUNT, AUTOMATED 297 K/uL (150-450)
[2017-10-16] MEDS: ALBUTEROL/IPRATROPIUM 3 ML NEB NEB SCH ×3 (06:13→16:49)
[2017-10-16] MEDS: KCL/D1/2NS 20 MEQ 1000 ML 1,000 ML IV PRN (06:53)
[2017-10-16 07:15] VITALS: BP 112/70
--- NOTE | 2017-10-16 08:11 | General Surgery Progress Note ---
Subjective Patient Complains of: Neurological: Confusion, Weakness Cardiovascular: No: Chest Pain, Other Respiratory: No: Cough, Shortness of Breath, Other Gastrointestinal: No Nausea, No Vomiting, No Flatus, No Bowel Movement, No Other Genitourinary: Other (Incomplete bladder emptying) Musculoskeletal: Impaired Mobility, No: Pain, Sprain, Strain, Other Physical Exam Vital Signs Date Time Temp Pulse Resp B/P (MAP) Pulse Ox O2 Delivery O2 Flow Rate FiO2 10/16/17 07:15 98.2 113 24 112/70 (84) 91 Nasal Cannula 2.0 Intake and Output 10/17/17 07:00 Output Total 225 ml Balance -225 ml Output Urine Total 225 ml General Appearance: Alert, Awake, No Acute Distress, Afebrile (T Max 100.2) Eyes: PERRLA, Other (No scleral icterus) ENT: Other (Mucous membranes dry) Cardiovascular: Regular Rate and Rhythm, Other (Intermittent tachycardia to 104 max) Respiratory: No Respiratory Distress, Clear to Auscultation (except for expiratory wheezes with exhalation on the left after deep breath) Chest: No Tenderness GI: Soft and Non-Tender, Other (Stoma pink; probed yesterday and found to be patent) Musculoskeletal: Other (near constant tremor, jerking motions) Extremities: Soft and Non Tender, Other (No Edema) Integumentary: Scaly / Dry Skin Psych: Other (Easily awoken; follows commands) Result Diagram: 10/16/17 0538 10/16/17 0538 Laboratory Tests Test 10/15/17 12:00 10/15/17 13:35 10/15/17 18:41 10/16/17 00:00 Urine Color Yellow Urine Clarity Clear Urine pH 6.0 pH Urine Specific [place] 1.012 Urine Protein Negative mg/dL Urine Glucose (UA) Negative mg/dL Urine Ketones Negative mg/dL Urine Blood Negative Urine Nitrite Negative Urine Bilirubin Negative Urine Urobilinogen Negative mg/dL Urine Leukocyte Esterase Negative Urine RBC None /HPF Urine WBC <1 /HPF Urine Squamous Epithelial Cells None /LPF Urine Bacteria Negative /HPF Urine Mucus Few /HPF Whole Blood Glucose 99 mg/DL 109 mg/DL 119 mg/DL Test 10/16/17 05:38 White Blood Count 4.0 k/uL Red Blood Count 2.97 M/uL Hemoglobin 9.1 g/dL Hematocrit 26.4 % Mean Corpuscular Volume 88.8 fL Mean Corpuscular Hemoglobin 30.5 pg Mean Corpuscular Hemoglobin Concent 34.3 g/dL Red Cell Distribution Width 15.1 % Platelet Count 297 K/uL Mean Platelet Volume 7.5 fL Neutrophils (%) (Auto) 64.7 % Lymphocytes (%) (Auto) 17.5 % Monocytes (%) (Auto) 12.8 % Eosinophils (%) (Auto) 4.1 % Basophils (%) (Auto) 0.9 % Nucleated RBC Relative Count (auto) 0.0 /100WBC Neutrophils # (Auto) 2.6 K/uL Lymphocytes # (Auto) 0.7 K/uL Monocytes # (Auto) 0.5 K/uL Eosinophils # (Auto) 0.2 K/uL Basophils # (Auto) 0.0 K/uL Nucleated RBC Absolute Count (auto) 0.00 K/uL Sodium Level 133 mmol/L Potassium Level 3.9 mmol/L Chloride Level 99 mmol/L Carbon Dioxide Level 28 mmol/L Blood Urea Nitrogen 10 mg/dl Creatinine 0.60 mg/dl Glomerular Filtration Rate Calc > 60.0 Random Glucose 103 mg/dl Calcium Level 7.6 mg/dl Total Bilirubin 0.2 mg/dl Direct Bilirubin 0.2 mg/dl Aspartate Amino Transf (AST/SGOT) 18 U/L Alanine Aminotransferase (ALT/SGPT) 20 U/L Alkaline Phosphatase 67 U/L Total Protein 4.6 g/dl Albumin 2.0 g/dl Current Medications Medications (Trade) Dose Ordered Sig/Lico Route PRN Reason Start Time Stop Time Status Last Admin Dose Admin Sodium Chloride 1,000 ml @ 0 mls/hr Q0M ONCE IV 10/04/17 07:35 10/04/17 07:36 DC 10/04/17 07:39 Ondansetron HCl (Zofran(*) 4 Mg/ 2 ml(Or Equiv)) 4 mg ONCE ONCE IVP 10/04/17 07:35 10/04/17 07:36 DC 10/04/17 07:40 Iopamidol 75 ml @ As Directed STK-MED ONCE .ROUTE 10/04/17 08:47 10/04/17 08:48 DC Vancomycin HCl 1 gm/Sodium Chloride 250 ml @ 250 mls/hr ONCE ONCE IVPB 10/04/17 10:00 10/04/17 10:59 DC 10/04/17 10:54 Piperacillin Sod/ Tazobactam Sod 3.375 gm/Sodium Chloride 100 ml @ 200 mls/hr ONCE ONCE IVPB 10/04/17 10:00 10/04/17 10:29 DC 10/04/17 10:12 Sodium Chloride (NS Flush) 10 ml PRN PRN IVP FLUSH 10/04/17 10:05 11/03/17 10:04 Sodium Chloride 1,000 ml @ 125 mls/hr Q8H PRN IV RUN CONTINUOUSLY FOR HYDRATION 10/04/17 10:02 10/05/17 23:24 DC 10/05/17 22:46 Hydromorphone HCl (Dilaudid HCl(*) 2 Mg/ml Sdv (Or Equiv)) 2 mg Q6H PRN IVP SEVERE PAIN 10/04/17 10:05 10/18/17 10:04 10/16/17 04:05 Ondansetron HCl (Zofran(*) 4 Mg/ 2 ml(Or Equiv)) 4 mg Q4-6H PRN IVP NAUSEA/VOMITING 10/04/17 10:05 11/03/17 10:04 10/11/17 05:46 Pantoprazole Sodium (Protonix 40 Mg Iv Vial (*) (Or Equiv)) 40 mg Q24H IVP 10/05/17 09:00 11/04/17 08:59 10/15/17 09:26 Enoxaparin Sodium (Lovenox 40 Mg/ 0.4 ml Syr (Or Equiv)) 40 mg Q24H SC 10/05/17 09:00 11/04/17 08:59 Future hold 10/15/17 09:26 Divalproex Sodium (Depakote Dr 500 Mg Tab (Or Equiv)) 1,000 mg QHS PO 10/04/17 21:00 10/05/17 09:54 DC Divalproex Sodium (Depakote Dr 500 Mg Tab (Or Equiv)) 500 mg QAM PO 10/05/17 09:00 10/05/17 09:54 DC Olanzapine (zyPREXA (OR EQUIV)) 20 mg QHS PO 10/04/17 21:00 10/05/17 10:45 DC Vancomycin HCl 1 gm/Sodium Chloride 250 ml @ 250 mls/hr Q12H IVPB 10/04/17 21:00 10/05/17 10:19 DC 10/04/17 20:28 Lorazepam (Ativan(*) 2 Mg/ ml Vial (Or Equiv)) 1 mg ONCE ONCE IVP 10/04/17 10:20 10/04/17 10:21 DC 10/04/17 10:24 Lidocaine HCl (Lidocaine 2% Visc Sln (*) 15ml Udc) 15 ml STK-MED ONCE .ROUTE 10/04/17 10:35 10/04/17 10:36 DC 10/04/17 10:55 Piperacillin Sod/ Tazobactam Sod 3.375 gm/Sodium Chloride 100 ml @ 200 mls/hr 0400,1000,1600,2200 IVPB 10/04/17 16:00 10/18/17 15:59 Cancel Imipenem/ Cilastatin Sodium 500 mg/Sodium Chloride 100 ml @ 200 mls/hr 0400,1000,1600,2200 IVPB 10/04/17 16:00 10/07/17 22:36 DC 10/07/17 16:26 Flumazenil (Romazicon(*) 0.1 Mg/ml 5 ml Vial (Or Equiv)) 0.1 mg ONCE ONCE IVP 10/04/17 14:35 10/04/17 14:36 DC 10/04/17 14:44 Valproate Sodium 500 mg/Sodium Chloride 105 ml @ 105 mls/hr QAM IVPB 10/05/17 09:45 10/05/17 11:19 DC 10/05/17 09:45 Valproate Sodium 1000 mg/Sodium Chloride 110 ml @ 110 mls/hr QHS IVPB 10/05/17 21:00 10/08/17 08:21 DC 10/07/17 22:23 Vancomycin HCl 1 gm/Sodium Chloride 250 ml @ 250 mls/hr Q8H@0300,1100,1900 IVPB 10/05/17 11:00 10/06/17 08:21 DC 10/06/17 02:41 Olanzapine (zyPREXA ZYDIS ODT(*) 5 MG TABDP (OR EQUIV)) 20 mg QHS PO 10/05/17 21:00 11/04/17 20:59 10/15/17 19:33 Valproate Sodium 500 mg/Sodium Chloride 105 ml @ 105 mls/hr QAM IVPB 10/05/17 12:56 11/04/17 12:55 Cancel Valproate Sodium 500 mg/Sodium Chloride 105 ml @ 105 mls/hr QAM IVPB 10/06/17 09:00 11/05/17 08:59 10/15/17 09:26 Lactated Ringer's 500 ml @ 0 mls/hr Q0M ONCE IV 10/05/17 18:05 10/05/17 18:08 DC 10/05/17 18:18 Sodium Chloride 1,000 ml @ 150 mls/hr Q6H40M PRN IV RUN CONTINUOUSLY FOR HYDRATION 10/05/17 23:23 10/06/17 07:22 DC 10/06/17 06:19 Sodium Chloride 500 ml @ 0 mls/hr Q0M ONCE IV 10/05/17 23:25 10/05/17 23:30 DC 10/05/17 23:25 Diatrizoate Meglum/ Diatrizoate Sod (Gastroview 30 ml) 11,010 mg ONCE ONCE PO 10/06/17 08:00 10/06/17 08:01 DC 10/06/17 08:54 Potassium Chloride/Dextrose/ Sod Cl 1,000 ml @ 125 mls/hr Q8H IV 10/06/17 07:20 10/10/17 08:03 DC 10/10/17 05:53 Fluconazole 100 ml @ 100 mls/hr DAILY IVPB 10/06/17 09:00 10/06/17 09:00 DC Fluconazole 100 ml @ 100 mls/hr QDAY@1230 IVPB 10/06/17 12:30 10/13/17 19:16 DC 10/13/17 12:41 Vancomycin HCl 1 gm/Sodium Chloride 250 ml @ 250 mls/hr Q8H@0300,1100,1900 IVPB 10/06/17 11:00 10/06/17 11:08 DC Furosemide (Lasix(*) 40 Mg/ 4 ml Vial (Or Equiv)) 40 mg BIDD IVP 10/06/17 10:00 10/06/17 13:25 DC 10/06/17 10:13 Albuterol/ Ipratropium (Duoneb Soln(*) 3 ml Neb (Or Equiv)) 3 ml TIDR NEB 10/06/17 12:00 11/05/17 11:59 10/16/17 06:13 Vancomycin HCl 1 gm/Vancomycin HCl 0.25 gm/Sodium Chloride 262.5 ml @ 250 mls/hr Q8H@0300,1100,1900 IVPB 10/06/17 11:08 10/06/17 11:13 DC Vancomycin HCl 1 gm/Vancomycin HCl 0.5 gm/Sodium Chloride 265 ml @ 250 mls/hr Q8H@0300,1100,1900 IVPB 10/06/17 11:13 10/06/17 11:15 DC Vancomycin HCl 1 gm/Vancomycin HCl 0.5 gm/Sodium Chloride 265 ml @ 176.667 mls/hr Q8H@0300,1100,1900 IVPB 10/06/17 11:15 10/06/17 11:16 DC Vancomycin HCl 1 gm/Vancomycin HCl 0.5 gm/Sodium Chloride 265 ml @ 176.667 mls/hr Q8H@0300,1100,1900 IVPB 10/06/17 11:16 10/07/17 22:34 DC 10/07/17 11:26 Iopamidol 75 ml @ As Directed STK-MED ONCE .ROUTE 10/06/17 14:06 10/06/17 14:07 DC Parenteral Electrolytes 1,000 ml @ 0 mls/hr Q0M ONCE IV 10/07/17 15:00 10/07/17 15:01 DC Fentanyl Citrate (Sublimaze 250 Mcg/5 ml Amp (Or Equiv)) 250 mcg STK-MED ONCE .ROUTE 10/07/17 15:24 10/07/17 15:33 DC Fentanyl Citrate (Sublimaze 250 Mcg/5 ml Amp (Or Equiv)) 250 mcg STK-MED ONCE .ROUTE 10/07/17 15:24 10/07/17 15:33 DC Ondansetron HCl (Zofran(*) 4 Mg/ 2 ml(Or Equiv)) 4 mg STK-MED ONCE .ROUTE 10/07/17 15:25 10/07/17 15:36 DC Propofol 20 ml @ As Directed STK-MED ONCE .ROUTE 10/07/17 15:25 10/07/17 15:36 DC Dexamethasone Sodium Phosphate (Decadron(*) 10 Mg/ml Inj (Or Equiv)) 10 mg STK-MED ONCE .ROUTE 10/07/17 15:25 10/07/17 15:36 DC Lidocaine HCl (Xylocaine-Mpf 1% 5 ml Vial (Or Equiv)) 5 ml STK-MED ONCE .ROUTE 10/07/17 15:25 10/07/17 15:36 DC Ropivacaine (Naropin 0.5% 20 ml Vial (Or Equiv)) 20 ml STK-MED ONCE .ROUTE 10/07/17 16:47 10/07/17 16:54 DC Ropivacaine (Naropin 0.5% 20 ml Vial (Or Equiv)) 20 ml STK-MED ONCE .ROUTE 10/07/17 16:54 10/07/17 17:00 DC Ephedrine (Ephedrine-NS 25 Mg/5 ml Disp.syr (Or Equiv)) 25 mg STK-MED ONCE IVP 10/07/17 17:27 10/07/17 17:35 DC Sugammadex Sodium (Bridion 200 Mg) 500 mg STK-MED ONCE .ROUTE 10/07/17 17:37 10/07/17 17:44 DC Fentanyl Citrate (fentaNYL CITR(*) 100 MCG/2 ML AMP) 100 mcg STK-MED ONCE .ROUTE 10/07/17 20:13 10/07/17 20:14 DC 10/07/17 20:17 Rocuronium [place] (Zemuron(*) 10 Mg/ml 10 ml Vial (Or Equiv)) 90 mg STK-MED ONCE .ROUTE 10/07/17 17:30 10/07/17 20:35 DC Vancomycin HCl 1 gm/Vancomycin HCl 0.5 gm/Sodium Chloride 250 ml @ 176.667 mls/hr Q8H@0700,1500,2300 IVPB 10/07/17 23:00 10/08/17 08:50 DC 10/08/17 06:22 Imipenem/ Cilastatin Sodium 500 mg/Sodium Chloride 100 ml @ 200 mls/hr 0000,0600,1200,1800 IVPB 10/08/17 00:00 10/11/17 10:07 DC 10/11/17 05:24 Valproate Sodium 1000 mg/Sodium Chloride 110 ml @ 110 mls/hr QHS IVPB 10/08/17 21:00 11/07/17 20:59 10/15/17 21:44 Potassium Chloride/Dextrose/ Sod Cl 1,000 ml @ 75 mls/hr [id number] IV 10/10/17 08:00 10/10/17 14:06 DC Polyethylene Glycol (Miralax 17 Gm Pkt (Or Equiv)) 17 gm QDAY PO 10/10/17 09:00 10/10/17 14:04 DC 10/10/17 08:41 Sennosides (Senokot 8.6 Mg Tab (Or Equiv)) 8.6 mg BID PO 10/10/17 09:00 10/10/17 14:04 DC 10/10/17 08:41 Docusate Sodium (Colace(*) 100 Mg Cap (Or Equiv)) 100 mg BID PO 10/10/17 09:00 10/10/17 14:04 DC 10/10/17 08:41 Potassium Chloride/Dextrose/ Sod Cl 1,000 ml @ 75 mls/hr [id number] PRN IV PRN 10/10/17 14:10 11/09/17 14:09 10/16/17 06:53 Sodium Chloride 250 ml @ As Directed STK-MED ONCE .ROUTE 10/10/17 21:08 10/10/17 21:09 DC 10/11/17 07:42 Lorazepam (Ativan(*) 2 Mg/ ml Vial (Or Equiv)) 1 mg ONCE ONCE IVP 10/11/17 11:05 10/11/17 11:07 DC 10/11/17 13:56 Lidocaine HCl (Xylocaine-Mpf 1% 5 ml Vial (Or Equiv)) 10 ml STK-MED ONCE .ROUTE 10/11/17 13:49 10/11/17 13:50 DC Sodium Chloride 10 ml @ As Directed STK-MED ONCE .ROUTE 10/11/17 13:49 10/11/17 13:50 DC Insulin Human Regular 10 unit/ Heparin Sodium (Porcine) 1000 units/ Multivitamins 10 ml/Trace Metals/ Electrolytes 1 ml/ Amino Acids/ Electrolytes/ Dextrose 1,011.2 ml @ 42 mls/hr Q24H ONCE IV 10/11/17 18:30 10/12/17 18:29 DC 10/11/17 21:22 Insulin Human Regular 10 unit/ Heparin Sodium (Porcine) 1000 units/ Multivitamins 10 ml/Trace Metals/ Electrolytes 1 ml/ Amino Acids/ Electrolytes/ Dextrose 1,011.2 ml @ 75 mls/hr BY DURATION IV 10/12/17 18:30 10/12/17 18:30 DC Insulin Human Regular 10 unit/ Heparin Sodium (Porcine) 1000 units/Amino Acids/ Electrolytes/ Dextrose 1,000.2 ml @ 75 mls/hr BY DURATION IV 10/12/17 18:30 10/12/17 18:30 DC Fat Emulsion 250 ml @ 20.833 mls/ hr QDAY@1830 IVPB 10/12/17 18:30 11/11/17 18:29 10/15/17 18:24 Insulin Human Regular 10 unit/ Heparin Sodium (Porcine) 1000 units/ Multivitamins 10 ml/Trace Metals/ Electrolytes 1 ml/ Amino Acids/ Electrolytes/ Dextrose 1,011.2 ml @ 75 mls/hr BY DURATION IV 10/12/17 21:00 10/13/17 18:06 DC 10/12/17 20:22 Insulin Human Regular 10 unit/ Heparin Sodium (Porcine) 1000 units/Amino Acids/ Electrolytes/ Dextrose 1,000.2 ml @ 75 mls/hr BY DURATION IV 10/12/17 21:00 10/13/17 18:06 DC Insulin Human Regular 10 unit/ Heparin Sodium (Porcine) 1000 units/ Multivitamins 10 ml/Trace Metals/ Electrolytes 1 ml/ Amino Acids/ Electrolytes/ Dextrose 1,011.2 ml @ 75 mls/hr BY DURATION IV 10/13/17 18:30 10/27/17 18:29 10/15/17 12:06 Insulin Human Regular 10 unit/ Heparin Sodium (Porcine) 1000 units/Amino Acids/ Electrolytes/ Dextrose 1,000.2 ml @ 75 mls/hr BY DURATION IV 10/13/17 18:30 10/27/17 18:29 10/16/17 00:01 Fluconazole 100 ml @ 100 mls/hr QDAY@1900 IVPB 10/14/17 19:00 11/13/17 18:59 10/15/17 18:24 Sodium Chloride 250 ml @ 0 mls/hr QDAY PRN IVPB FLUSH ABX 10/15/17 03:40 11/14/17 03:39 10/15/17 05:56 Tamsulosin HCl (Flomax(*) 0.4 Mg Cap (Or Equiv)) 0.4 mg QDAY@1800 PO 10/15/17 18:00 11/14/17 17:59 10/15/17 18:27 UA 10/15/17 was negative Imaging KUB SINGLE VIEW ABDOMEN Comparison: Abdomen radiograph 10/14/2017 Findings: Again seen are dilated loops of small bowel. Moderate amount of stool in colon is seen. There is no abdominal free air. Lung bases are clear. IMPRESSION: Dilated loops of small bowel, unchanged from 10/14/2017. Differential diagnosis includes mechanical and adynamic ileus. CXR 10/15/17 No acute changes; Full expansion Assessment and Plan Problems: (1) Small bowel obstruction due to postoperative adhesions Status: Acute Assessment & Plan: 10/04/17: Admit, nothing by mouth, IV fluids, bowel rest, conservative management start with. We'll follow his x-rays and NG tube output as well as stoma output. We will hold off on any sort of surgery until he is about 6 weeks out from his initial resection surgery. Hopefully he will respond to conservative management. His last meal was yesterday and his mother reports that he has been eating reasonably well. If he is unable to eat and about 5 or 6 days then we will need to consider a PICC line and starting TPN. I have explained this plan to the patient's mother and she seems to understand and seems to be agreeable with this plan. 10/05/17: Continued small bowel obstruction clinically and radiographically based on his KUB this morning. Will continue conservative management with NG tube decompression, bowel rest, and IV fluids. Continue IV antibiotics for pneumonia. If he fails to get better in the next several days may consider diagnostic laparoscopy with drainage of the pelvic fluid collection and inspection of his small bowel. We'll let his small bowel decompress further before contemplating this. 10/06/17: Will give po gastrograffin and will get CT this afternoon. KUB a little better but not much function from stoma. May need to consider exploratory laparoscopy tomorrow if not getting better. Stoma with white patches and area of necrosis on inferior portion only. Possibly the stoma appliance was cut too tight and pressing on the stoma, will need to follow this. Will add antifungal coverage in case white patches represent fungal infection of stoma although I don't recall every having seen this. Pt still with intermittent low grade fevers on broad spectrum antibiotic coverage so antifungal coverage will broaden that coverage as well. O/W, CCM. 10/07/17: Not much change. No stoma output. KUB has not yet been done this morning. Labs OK. Still with low grade fevers. WBC normal, neutrophil count coming down. CT abd/pelvis yesterday with decreased small bowel distension but still with evidence of SBO, fluid collection in unchanged, no free fluid or air. 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 Will await KUB. Getting to the point where we will need to consider PICC line and starting TPN. May discuss laparoscopic exploration later today; will discuss with patient's mother. 10/08/17: 4 weeks s/p robotic LAR, POD#1 s/p ex-laparoscopy with RILEY and drainage of presacral fluid. Doing well. WBC normal. Will follow fevers/ vitals, etc. Place PICC today to start TPN. Await return of bowel function. 10/09/17: POD2 ex laparoscopy. Awaiting return of bowel function. +BS and minimal NGT output so may be soon. Plan to start TPN on Wednesday. Patient needs to ambulate. Continue abx for pneumonia. Will try to remove perez catheter tomorrow. 10/10/17: POD3 ex laparoscopy. Still awaiting return of bowel function. Clamp NGT till noon and remove if low residuals and in good position on KUB. continue abx, continue perez. dropped MIVF to 75cc/hr. Patient is not participating with therapy. Good bowel sounds so started bowel reg today, senna s/miralax. 10/11/17: POD4 ex laparoscopy. Awaiting bowel function. NGT removed yesterday. Plan PICC/TPN today. Will need swallow eval before taking orals, could not tolerate bowel reg yesterday. May attempt to remove perez today. Ordered labs. 10/12/17: POD#5. Stable. Started TPN yesterday. KUB with gas throughout colon , I suspect we'll start seeing gas in stoma bag in next day or two. Still some dilated small bowel but colon looks better on KUB. Perez out, patient seems to be urinating without problems. CCM until bowel function returns. 10/13/17: POD#6. Doing well but still no evidence of bowel function. Continue bowel rest and TPN. Await return of bowel function. COntinue lovenox and PPI. CCM. 10/14/17: POD#7. Doing well. DAQUAN removed yesterday. KUB continues to improve with gas to distal colon but still no activity from stoma yet. Continue bowel rest and TPN while we await return of bowel function. Continue lovenox and PPI. 10/15/17: POD#8. Doing well but now with mild fevers and intermittent tachycardia. He has no pain and his abdominal exam is benign. Will get CXR and check UA. He's not on abx other than diflucan at this point. Continue bowel rest and TPN until bowel function returns. Continue lovenox, PPI. Hopeful for return of bowel function soon. 10/16/17: POD#9. Appears to be at his baseline. Ambulated with PT yesterday> 100 feet. Urinary incomplete emptying- started on Flomax 10/15. Stoma was irrigated with Fleets Enema by Dr Roque 10/15 with nothing more out than enema fluid. He has no pain and his abdominal exam is benign. 10/15/17 with T max 100.4- CXR was clear and UA was clear--both improved today. Off abx but remains on Diflucan for ronda appearance of the stoma noted earlier in hospitalization. Will do a trial of Erythromycin for potential bowel dysmotility (secondary to bipolar meds?) Continue bowel rest and TPN until bowel function returns. Continue Lovenox, PPI. (2) Pneumonia Status: Resolved Assessment & Plan: Now Off Antibiotics; Being treated with albuterol for expiratory wheezing (3) Urinary retention with incomplete bladder emptying Status: Chronic Assessment & Plan: Perez catheter out; Started on Flomax 10/15/17 for incomplete emptying (4) Bipolar disorder, unspecified Status: Chronic Assessment & Plan: On Home medications (5) ANEMIA IN OTHER CHRONIC DISEASES CLASSIFIED ELSEWHERE Status: Chronic Assessment & Plan: Anemia likely secondary to chronic disease; Monitor (6) Hyponatremia Status: Acute Assessment & Plan: Appears to be euvolemic; Can adjust IV Fluids; Monitor (7) Hypoalbuminemia due to protein-calorie malnutrition Status: Acute Assessment & Plan: Albumin 2.0; On TPN; Remains NPO due to ileus or bowel dysmotility (8) Hypoxia Status: Acute Assessment & Plan: Remains on 2 liters Nasal [place]ula; Encourage ambulation/ assisted; Attempt O2 weaning Time Spent: > 30 min Exam Sepsis Risk: No Definite Risk Problem Qualifiers (1) Pneumonia: Pneumonia type: due to unspecified organism Laterality: unspecified laterality Lung location: unspecified part of lung Qualified Codes: J18.9 - Pneumonia, unspecified organism SHANNON BECERRA MD Oct 16, 2017 08:07
[2017-10-16] MEDS ORDERED: KCL 2 MEQ/ML 20 MEQ/10 ML VIAL 20 MEQ in NS(*) 0.9% 1000 ML BAG 1,000 ML IV PRN (08:35)
[2017-10-16] MEDS ORDERED: KCL/NS* 20 MEQ/1000 ML PREMIX 1,000 ML IV PRN (08:45)
[2017-10-16] MEDS: PANTOPRAZOLE SOD 40 MG IV VIAL IVP SCH (09:36)
[2017-10-16] MEDS: ENOXAPARIN 40 MG/0.4ML SYR SC SCH (09:36)
[2017-10-16] MEDS: VALPROATE SOD IVPB SCH (09:37)
[2017-10-16] MEDS: NS 0.9% IVPB SCH (09:37)
[2017-10-16 10:46] VITALS: BP 107/69
[2017-10-16] MEDS ORDERED: DEXTROSE 50% 50 ML SYR IVP ONE (11:50)
[2017-10-16] MEDS: ERYTHROMYCIN 250 MG PO SCH ×3 (12:11→23:44)
[2017-10-16] MEDS: KCL/DNS 20 MEQ/1000 ML PREMIX 1,000 ML IV PRN (12:45)
[2017-10-16 14:43] VITALS: BP 119/68
[2017-10-16] MEDS: TAMSULOSIN HCL 0.4 MG CAP PO SCH (18:05)
[2017-10-16] MEDS: FAT EMULSION 20% 250 ML BAG 250 ML IVPB SCH (18:06)
--- NOTE | 2017-10-16 18:19 | EKG ---
FACILITY: [facility] [place] PATIENT NAME: RITO WALL : [id number] MR: [id number] V: [id number] EXAM DATE: ORDERING PHYSICIAN: SHANNON BECERRA TECHNOLOGIST: BIJAN Shepard Reason : Blood Pressure : / mmHG Vent. Rate : 100 BPM Atrial Rate : 100 BPM P-R Int : 104 ms QRS Dur : 084 ms QT Int : 340 ms P-R-T Axes : 036 040 046 degrees QTc Int : 438 ms Sinus rhythm Nonspecific ST findings Baseline artifact - repeat if needed Confirmed by ELKE REES [id number] on 10/17/2017 5:39:02 AM Referred By: Confirmed By:ELKE REES
[2017-10-16 20:12] VITALS: BP 118/80
[2017-10-16] MEDS: OLANZapine ZYDIS ODT 5MG TABDP PO SCH (20:43)
[2017-10-16] MEDS: VALPROATE SOD 100 MG/ML VIAL 1,000 MG in NS(*) 0.9% 100 ML BAG 100 ML IVPB SCH (20:44)
[2017-10-16 23:27] VITALS: BP 118/64
[2017-10-17 02:19] VITALS: BP 123/78
[2017-10-17] MEDS: [UNRECOGNIZED DRUG - OTHER] IV SCH ×2 (03:59→16:56)
[2017-10-17] MEDS: KCL/DNS 20 MEQ/1000 ML PREMIX 1,000 ML IV PRN ×2 (03:59→20:55)
[2017-10-17] MEDS: ERYTHROMYCIN 250 MG PO SCH ×3 (05:28→17:50)
[2017-10-17] MEDS: HYDROmorphone HCL 2 MG/ML SDV IVP PRN ×3 (05:29→17:51)
[2017-10-17] MEDS: ALBUTEROL/IPRATROPIUM 3 ML NEB NEB SCH ×3 (05:48→17:22)
[2017-10-17 06:59] LABS: PLATELET COUNT, AUTOMATED 369 K/uL (150-450)
--- NOTE | 2017-10-17 07:00 | General Surgery Progress Note ---
Subjective Progress Notes Subjective Feels better; ambulated x 2 with improved strength; + flatus in stoma bag and some liquid stool out; tolerated clear liquids this AM Patient Complains of: Cardiovascular: No: Chest Pain Respiratory: No: Cough, Shortness of Breath Gastrointestinal: No Nausea, No Vomiting Physical Exam Vital Signs Date Time Temp Pulse Resp B/P (MAP) Pulse Ox O2 Delivery O2 Flow Rate FiO2 10/17/17 05:53 100 18 10/17/17 05:48 93 Nasal Cannula 1.0 10/17/17 02:19 98.2 123/78 (93) General Appearance: Alert, Awake, No Acute Distress Eyes: PERRLA ENT: Moist Mucous Membranes Cardiovascular: Regular Rate and Rhythm, No Edema Respiratory: No Respiratory Distress, Clear to Auscultation GI: Soft and Non-Tender (Stoma [place]; + Gas and minimal liquid in bag; + peristomal hernia when standing) Musculoskeletal: Other (Tremors/Jerking motions- stable baseline) Extremities: Soft and Non Tender Integumentary: Skin Intact without Lesion / Mass Psych: Alert & Oriented X3 Result Diagram: 10/16/17 0538 10/16/17 0538 10/17/17 labs: Sodium 132 K 4.3 Cl 99 Bicarb 24 BUN 10 Cr 0.6 WBC 4.1 with no left shift HgB 9.7 PLT 369 Valproic Acid Level 47.7 (Range 50-120) Assessment and Plan Problems: (1) Small bowel obstruction due to postoperative adhesions Status: Acute Assessment & Plan: 10/04/17: Admit, nothing by mouth, IV fluids, bowel rest, conservative management start with. We'll follow his x-rays and NG tube output as well as stoma output. We will hold off on any sort of surgery until he is about 6 weeks out from his initial resection surgery. Hopefully he will respond to conservative management. His last meal was yesterday and his mother reports that he has been eating reasonably well. If he is unable to eat and about 5 or 6 days then we will need to consider a PICC line and starting TPN. I have explained this plan to the patient's mother and she seems to understand and seems to be agreeable with this plan. 10/05/17: Continued small bowel obstruction clinically and radiographically based on his KUB this morning. Will continue conservative management with NG tube decompression, bowel rest, and IV fluids. Continue IV antibiotics for pneumonia. If he fails to get better in the next several days may consider diagnostic laparoscopy with drainage of the pelvic fluid collection and inspection of his small bowel. We'll let his small bowel decompress further before contemplating this. 10/06/17: Will give po gastrograffin and will get CT this afternoon. KUB a little better but not much function from stoma. May need to consider exploratory laparoscopy tomorrow if not getting better. Stoma with white patches and area of necrosis on inferior portion only. Possibly the stoma appliance was cut too tight and pressing on the stoma, will need to follow this. Will add antifungal coverage in case white patches represent fungal infection of stoma although I don't recall every having seen this. Pt still with intermittent low grade fevers on broad spectrum antibiotic coverage so antifungal coverage will broaden that coverage as well. O/W, CCM. 10/07/17: Not much change. No stoma output. KUB has not yet been done this morning. Labs OK. Still with low grade fevers. WBC normal, neutrophil count coming down. CT abd/pelvis yesterday with decreased small bowel distension but still with evidence of SBO, fluid collection in unchanged, no free fluid or air. 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 Will await KUB. Getting to the point where we will need to consider PICC line and starting TPN. May discuss laparoscopic exploration later today; will discuss with patient's mother. 10/08/17: 4 weeks s/p robotic LAR, POD#1 s/p ex-laparoscopy with RILEY and drainage of presacral fluid. Doing well. WBC normal. Will follow fevers/ vitals, etc. Place PICC today to start TPN. Await return of bowel function. 10/09/17: POD2 ex laparoscopy. Awaiting return of bowel function. +BS and minimal NGT output so may be soon. Plan to start TPN on Wednesday. Patient needs to ambulate. Continue abx for pneumonia. Will try to remove perez catheter tomorrow. 10/10/17: POD3 ex laparoscopy. Still awaiting return of bowel function. Clamp NGT till noon and remove if low residuals and in good position on KUB. continue abx, continue perez. dropped MIVF to 75cc/hr. Patient is not participating with therapy. Good bowel sounds so started bowel reg today, senna s/miralax. 10/11/17: POD4 ex laparoscopy. Awaiting bowel function. NGT removed yesterday. Plan PICC/TPN today. Will need swallow eval before taking orals, could not tolerate bowel reg yesterday. May attempt to remove perez today. Ordered labs. 10/12/17: POD#5. Stable. Started TPN yesterday. KUB with gas throughout colon , I suspect we'll start seeing gas in stoma bag in next day or two. Still some dilated small bowel but colon looks better on KUB. Perez out, patient seems to be urinating without problems. CCM until bowel function returns. 10/13/17: POD#6. Doing well but still no evidence of bowel function. Continue bowel rest and TPN. Await return of bowel function. COntinue lovenox and PPI. CCM. 10/14/17: POD#7. Doing well. DAQUAN removed yesterday. KUB continues to improve with gas to distal colon but still no activity from stoma yet. Continue bowel rest and TPN while we await return of bowel function. Continue lovenox and PPI. 10/15/17: POD#8. Doing well but now with mild fevers and intermittent tachycardia. He has no pain and his abdominal exam is benign. Will get CXR and check UA. He's not on abx other than diflucan at this point. Continue bowel rest and TPN until bowel function returns. Continue lovenox, PPI. Hopeful for return of bowel function soon. 10/16/17: POD#9. Appears to be at his baseline. Ambulated with PT yesterday> 100 feet. Urinary incomplete emptying- started on Flomax 10/15. Stoma was irrigated with Fleets Enema by Dr Roque 10/15 with nothing more out than enema fluid. He has no pain and his abdominal exam is benign. 10/15/17 with T max 100.4- CXR was clear and UA was clear--both improved today. Off abx but remains on Diflucan for ronda appearance of the stoma noted earlier in hospitalization. Will do a trial of Erythromycin for potential bowel dysmotility (secondary to bipolar meds?) Continue bowel rest and TPN until bowel function returns. Continue Lovenox, PPI. 10/16/17: POD#10. Appears to be at his baseline. Ambulated with PT yesterday> 100 feet x 2; stronger. Urinary incomplete emptying- started on Flomax 10/15 and bladder scan was minimal for retained fluid. Started on po erythromycin for dysmotility. Stoma with large gas and small liquid out. Started on clear liquids today. He has no pain and his abdominal exam is benign. Off abx and diflucan now while undergoing trial of Erythromycin. Continue TPN until full bowel function/appetite returns. Continue Lovenox, PPI. 10/16/17 (Addendum @ 1220): Intermittent tachycardia. Peristomal hernia noted upon standing by nursing staff. This has been noted previously. No gas output or liquid output since 0600 this AM. Abdomen remains benign to my exam. Discussed care plan with Dr Roque and will try another enema today. Will continue erythromycin as a potential pro motility agent. (2) Pneumonia Status: Resolved Assessment & Plan: Now Off Antibiotics; Being treated with albuterol for expiratory wheezing (3) Urinary retention with incomplete bladder emptying Status: Chronic Assessment & Plan: Perez catheter out; Started on Flomax 10/15/17 for incomplete emptying 10/17/17: Bladder scan with minimal retained urine (4) Bipolar disorder, unspecified Status: Chronic Assessment & Plan: On Home medications (5) ANEMIA IN OTHER CHRONIC DISEASES CLASSIFIED ELSEWHERE Status: Chronic Assessment & Plan: Anemia likely secondary to chronic disease; Monitor (6) Hyponatremia Status: Acute Assessment & Plan: 10/16/17: Appears to be euvolemic; Can adjust IV Fluids; Monitor 10/17/17: Sodium 132; on fluid restriction. IVF changed to NS from 1/2NS. Monitor (7) Hypoalbuminemia due to protein-calorie malnutrition Status: Acute Assessment & Plan: Albumin 2.0; On TPN; Remains NPO due to ileus or bowel dysmotility (8) Hypoxia Status: Acute Assessment & Plan: Remains on 2 liters Nasal [place]; Encourage ambulation/ assisted; Attempt O2 weaning (9) Peristomal hernia Status: Chronic Assessment & Plan: Present on admission exam and CT scan. Does not appear to be the source of his SBO. Easily reducible. Monitor during this acute process but may need repair remotely. Time Spent: > 30 min Exam Sepsis Risk: No Definite Risk Problem Qualifiers (1) Pneumonia: Pneumonia type: due to unspecified organism Laterality: unspecified laterality Lung location: unspecified part of lung Qualified Codes: J18.9 - Pneumonia, unspecified organism SHANNON BECERRA MD Oct 17, 2017 07:00
[2017-10-17 07:25] VITALS: BP 124/72
[2017-10-17] MEDS: ENOXAPARIN 40 MG/0.4ML SYR SC SCH (09:35)
[2017-10-17] MEDS: PANTOPRAZOLE SOD 40 MG IV VIAL IVP SCH (09:36)
[2017-10-17] MEDS: VALPROATE SOD IVPB SCH (09:36)
[2017-10-17] MEDS: NS 0.9% IVPB SCH (09:36)
[2017-10-17 11:04] VITALS: BP 137/82
[2017-10-17 15:11] VITALS: BP 125/78
[2017-10-17] MEDS: TAMSULOSIN HCL 0.4 MG CAP PO SCH (17:50)
[2017-10-17] MEDS: FAT EMULSION 20% 250 ML BAG 250 ML IVPB SCH (17:55)
[2017-10-17 19:06] VITALS: BP 138/90
[2017-10-17] MEDS: VALPROATE SOD 100 MG/ML VIAL 1,000 MG in NS(*) 0.9% 100 ML BAG 100 ML IVPB SCH (20:54)
[2017-10-17] MEDS: OLANZapine ZYDIS ODT 5MG TABDP PO SCH (20:55)
[2017-10-17 22:44] VITALS: BP 130/71
[2017-10-18] MEDS: ERYTHROMYCIN 250 MG PO SCH ×2 (00:30→05:30)
[2017-10-18] MEDS: HYDROmorphone HCL 2 MG/ML SDV IVP PRN ×3 (01:16→16:44)
[2017-10-18 03:15] VITALS: BP 135/84
[2017-10-18] MEDS: ALBUTEROL/IPRATROPIUM 3 ML NEB NEB SCH ×3 (05:39→18:00)
[2017-10-18] MEDS: [UNRECOGNIZED DRUG - OTHER] IV SCH ×2 (05:48→19:06)
[2017-10-18 07:10] VITALS: BP 136/75
--- NOTE | 2017-10-18 08:13 | General Surgery Progress Note ---
Subjective Progress Notes Subjective He had gas in his stoma bag yesterday and Wednesday and so he was started on clear diet and erythromycin as a promotility agent but now he is more distended with N/V this morning. No stoma activity since yesterday per RN. Physical Exam Vital Signs Date Time Temp Pulse Resp B/P (MAP) Pulse Ox O2 Delivery O2 Flow Rate FiO2 10/18/17 07:10 101.3 130 20 136/75 (95) 88 Room Air 1.0 General Appearance: Alert, Awake, No Acute Distress, Afebrile GI: Other (Distended, mild periumbilical TTP, no peritonitis.) Extremities: Warm, Perfused Result Diagram: 10/17/1760510/17/17605 Assessment and Plan Problems: (1) Small bowel obstruction due to postoperative adhesions Status: Acute Assessment & Plan: 10/04/17: Admit, nothing by mouth, IV fluids, bowel rest, conservative management start with. We'll follow his x-rays and NG tube output as well as stoma output. We will hold off on any sort of surgery until he is about 6 weeks out from his initial resection surgery. Hopefully he will respond to conservative management. His last meal was yesterday and his mother reports that he has been eating reasonably well. If he is unable to eat and about 5 or 6 days then we will need to consider a PICC line and starting TPN. I have explained this plan to the patient's mother and she seems to understand and seems to be agreeable with this plan. 10/05/17: Continued small bowel obstruction clinically and radiographically based on his KUB this morning. Will continue conservative management with NG tube decompression, bowel rest, and IV fluids. Continue IV antibiotics for pneumonia. If he fails to get better in the next several days may consider diagnostic laparoscopy with drainage of the pelvic fluid collection and inspection of his small bowel. We'll let his small bowel decompress further before contemplating this. 10/06/17: Will give po gastrograffin and will get CT this afternoon. KUB a little better but not much function from stoma. May need to consider exploratory laparoscopy tomorrow if not getting better. Stoma with white patches and area of necrosis on inferior portion only. Possibly the stoma appliance was cut too tight and pressing on the stoma, will need to follow this. Will add antifungal coverage in case white patches represent fungal infection of stoma although I don't recall every having seen this. Pt still with intermittent low grade fevers on broad spectrum antibiotic coverage so antifungal coverage will broaden that coverage as well. O/W, CCM. 10/07/17: Not much change. No stoma output. KUB has not yet been done this morning. Labs OK. Still with low grade fevers. WBC normal, neutrophil count coming down. CT abd/pelvis yesterday with decreased small bowel distension but still with evidence of SBO, fluid collection in unchanged, no free fluid or air. 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 Will await KUB. Getting to the point where we will need to consider PICC line and starting TPN. May discuss laparoscopic exploration later today; will discuss with patient's mother. 10/08/17: 4 weeks s/p robotic LAR, POD#1 s/p ex-laparoscopy with RILEY and drainage of presacral fluid. Doing well. WBC normal. Will follow fevers/ vitals, etc. Place PICC today to start TPN. Await return of bowel function. 10/09/17: POD2 ex laparoscopy. Awaiting return of bowel function. +BS and minimal NGT output so may be soon. Plan to start TPN on Wednesday. Patient needs to ambulate. Continue abx for pneumonia. Will try to remove perez catheter tomorrow. 10/10/17: POD3 ex laparoscopy. Still awaiting return of bowel function. Clamp NGT till noon and remove if low residuals and in good position on KUB. continue abx, continue perez. dropped MIVF to 75cc/hr. Patient is not participating with therapy. Good bowel sounds so started bowel reg today, senna s/miralax. 10/11/17: POD4 ex laparoscopy. Awaiting bowel function. NGT removed yesterday. Plan PICC/TPN today. Will need swallow eval before taking orals, could not tolerate bowel reg yesterday. May attempt to remove perez today. Ordered labs. 10/12/17: POD#5. Stable. Started TPN yesterday. KUB with gas throughout colon , I suspect we'll start seeing gas in stoma bag in next day or two. Still some dilated small bowel but colon looks better on KUB. Perez out, patient seems to be urinating without problems. CCM until bowel function returns. 10/13/17: POD#6. Doing well but still no evidence of bowel function. Continue bowel rest and TPN. Await return of bowel function. COntinue lovenox and PPI. CCM. 10/14/17: POD#7. Doing well. DAQUAN removed yesterday. KUB continues to improve with gas to distal colon but still no activity from stoma yet. Continue bowel rest and TPN while we await return of bowel function. Continue lovenox and PPI. 10/15/17: POD#8. Doing well but now with mild fevers and intermittent tachycardia. He has no pain and his abdominal exam is benign. Will get CXR and check UA. He's not on abx other than diflucan at this point. Continue bowel rest and TPN until bowel function returns. Continue lovenox, PPI. Hopeful for return of bowel function soon. 10/16/17: POD#9. Appears to be at his baseline. Ambulated with PT yesterday> 100 feet. Urinary incomplete emptying- started on Flomax 10/15. Stoma was irrigated with Fleets Enema by Dr Claudio 10/15 with nothing more out than enema fluid. He has no pain and his abdominal exam is benign. 10/15/17 with T max 100.4- CXR was clear and UA was clear--both improved today. Off abx but remains on Diflucan for ronda appearance of the stoma noted earlier in hospitalization. Will do a trial of Erythromycin for potential bowel dysmotility (secondary to bipolar meds?) Continue bowel rest and TPN until bowel function returns. Continue Lovenox, PPI. 10/16/17: POD#10. Appears to be at his baseline. Ambulated with PT yesterday> 100 feet x 2; stronger. Urinary incomplete emptying- started on Flomax 10/15 and bladder scan was minimal for retained fluid. Started on po erythromycin for dysmotility. Stoma with large gas and small liquid out. Started on clear liquids today. He has no pain and his abdominal exam is benign. Off abx and diflucan now while undergoing trial of Erythromycin. Continue TPN until full bowel function/appetite returns. Continue Lovenox, PPI. 10/16/17 (Addendum @ 1220): Intermittent tachycardia. Peristomal hernia noted upon standing by nursing staff. This has been noted previously. No gas output or liquid output since 0600 this AM. Abdomen remains benign to my exam. Discussed care plan with Dr Claudio and will try another enema today. Will continue erythromycin as a potential pro motility agent. 10/17/17: POD#11. Worsened from GI standpoint. Now with increased abdominal distension with N/V this morning. I stopped erythromycin and backed off on his diet. He had a fever this morning to 101F. Will obtain saucedo-cultures including cultures from his PICC line and Power port. Will get CXR, empirically start primaxin. May need to repeat abdominal CT. Will see how he does today and what cultures show, etc reveal. (2) Pneumonia Status: Resolved Assessment & Plan: Now Off Antibiotics; Being treated with albuterol for expiratory wheezing (3) Urinary retention with incomplete bladder emptying Status: Chronic Assessment & Plan: Perez catheter out; Started on Flomax 10/15/17 for incomplete emptying 10/17/17: Bladder scan with minimal retained urine (4) Bipolar disorder, unspecified Status: Chronic Assessment & Plan: On Home medications (5) ANEMIA IN OTHER CHRONIC DISEASES CLASSIFIED ELSEWHERE Status: Chronic Assessment & Plan: Anemia likely secondary to chronic disease; Monitor (6) Hyponatremia Status: Acute Assessment & Plan: 10/16/17: Appears to be euvolemic; Can adjust IV Fluids; Monitor 10/17/17: Sodium 132; on fluid restriction. IVF changed to NS from 1/2NS. Monitor (7) Hypoalbuminemia due to protein-calorie malnutrition Status: Acute Assessment & Plan: Albumin 2.0; On TPN; Remains NPO due to ileus or bowel dysmotility (8) Hypoxia Status: Acute Assessment & Plan: Remains on 2 liters Nasal [place]; Encourage ambulation/ assisted; Attempt O2 weaning (9) Peristomal hernia Status: Chronic Assessment & Plan: Present on admission exam and CT scan. Does not appear to be the source of his SBO. Easily reducible. Monitor during this acute process but may need repair remotely. Exam Sepsis Risk: Sepsis Risk Problem Qualifiers (1) Pneumonia: Pneumonia type: due to unspecified organism Laterality: unspecified laterality Lung location: unspecified part of lung Qualified Codes: J18.9 - Pneumonia, unspecified organism ZACH CLAUDIO MD Oct 18, 2017 08:13
[2017-10-18] MEDS: PANTOPRAZOLE SOD 40 MG IV VIAL IVP SCH (08:45)
[2017-10-18] MEDS: ONDANSETRON 4 MG/2 ML VIAL IVP PRN (08:46)
[2017-10-18] MEDS: ENOXAPARIN 40 MG/0.4ML SYR SC SCH (08:47)
[2017-10-18] MEDS: IMIPENEM/CILASTA(*) 500MG VIAL 500 MG in NS(*) 0.9% 100 ML BAG 100 ML IVPB SCH ×3 (08:48→20:29)
[2017-10-18] MEDS: NS(*) 0.9% 250 ML BAG 250 ML IVPB PRN (08:52)
[2017-10-18 09:00] LABS: PLATELET COUNT, AUTOMATED 461 K/uL (150-450)
--- NOTE | 2017-10-18 09:09 | RADIOLOGY IMAGING REPORT ---
FACILITY: [facility] PATIENT NAME: Matthew Roth : 1960 MR: [id number] V: [id number] EXAM DATE: [id number] ORDERING PHYSICIAN: ZACH CLAUDIO TECHNOLOGIST: Location: [facility] Patient: Matthew Roth : 1960 Visit/Account:[id number] Date of Sevice: 10/18/2017 Exam type: CHEST SINGLE AP History: Fevers, abdomen pain Comparison: October 15, 2017. Findings: There is increasing bibasilar airspace consolidation likely representing atelectasis although develop ing infiltrates not excluded. There is no evidence of pleural effusions or overt pulmonary edema. C ardiac silhouette is normal in size. Left PICC line again noted distal tip projects over the superio r vena cava. Multiple loops of dilated small bowel again seen in the visualized portion of the upper abdomen. An air collection beneath left hemidiaphragm is presumably within a distended stomach as no air is seen beneath the right hemidiaphragm. IMPRESSION: 1. Increasing bibasilar airspace consolidation likely representing atelectasis although developing i nfiltrates not excluded Dilated loops of small bowel in the upper abdomen again seen consistent SBO versus ileus Air collection beneath left hemidiaphragm is presumably within a distended stomach although clinical correlation needed Report Dictated By: Keena Herrera MD at 10/18/2017 9:01 AM Report E-Signed By: Keena Herrera MD at 10/18/2017 9:05 AM WSN:[email or web address]
[2017-10-18] MEDS: NS 0.9% IVPB SCH (10:09)
[2017-10-18] MEDS: VALPROATE SOD IVPB SCH (10:09)
[2017-10-18 11:40] VITALS: BP 128/79
--- NOTE | 2017-10-18 13:00 | RADIOLOGY IMAGING REPORT ---
FACILITY: [facility] [place] PATIENT NAME: Matthew Roth : 1960 MR: [id number] V: [id number] EXAM DATE: ORDERING PHYSICIAN: ZACH CLAUDIO TECHNOLOGIST: Location: [facility] [place] Patient: Matthew Roth : 1960 Visit/Account:[id number] Date of Sevice: 10/18/2017 Exam type: CHEST SINGLE AP History: NG tube placement Comparison: October 18, 2017. Findings: There has some placement of an NG tube the distal tip projects over the left upper quadrant of abdome n presumably within the gastric fundus. Left PICC line remains unchanged. Bi basilar airspace consolidation appears relatively unchanged likely representing atelectasis althou gh developing infiltrates are included in the differential diagnosis. Cardiac silhouette is normal i n size. IMPRESSION: 1. Interval placement of an NG tube distal tip projecting over the left upper quadrant of abdomen pr esumably within the gastric fundus. Bibasal airspace consolidation appears unchanged likely representing atelectasis although developing infiltrates not totally excluded Report Dictated By: Keena Herrera MD at 10/18/2017 12:53 PM Report E-Signed By: Keena Herrera MD at 10/18/2017 12:55 PM WSN:[email or web address]
[2017-10-18 15:00] VITALS: BP 122/60
--- NOTE | 2017-10-18 15:57 | Medical Nutrition Therapy ---
Nutrition Anthropometrics Height (Inches): 67.00 Height (Calculated Centimeters: 170.198955 Weight (Pounds): 141 Weight (Calculated Kilograms): 63.957 Sherman Nutrition Score: Probably Inadequate Sherman Nutrition Risk Score: 18 Dietary Referral Nutrition Risk Factors: Nutrition Risk Comment: Physical Findings Physical Appearance: WNR 22.3 Skin Appearance Skin Appearance: Edema Edema Location Modifier: Edema Location: Type of Edema: Degree of Edema: Gastrointestinal Symptoms GI Symtoms: Nausea, Vomiting, Change in Bowel Pattern Tube Present: Bowel Sounds: Recent Bowel Pattern: Stool Characteristics: Brown, Soft Nutritional Diagnosis Nutritional Risk Acuity 1: TPN/PPN, GI Obstruction (SBO) Past Medical History: fecal incontinence, severe manic bipolar 1 disorder with psychotic behavior, psychogenic polydipsia, hyponatremia, OCD, rectal cancer, SBO, fatigue, weakness, hyperlipidemia, pneumonia, hx colon cancer, pevlic fluid collection Nutritional Acuity: 1-High Nutrition Diagnosis: Inadequate Food Intake Nutrition Etiology: Physiological Causes Nutrition Problem/Etiology/Sym: Inadequate oral intake related to physiological causes as evidence by nutrition support from TPN. Energy Requirement: 1935 ([place] ) Protein Requirement: 78 (1.1g/kg) Fluid Requirement: 2100 (30ml/kg) Diet Type: NPO/Meds Only Nutrition Intervention: Nutrition support (TPN ) Nutritional Support Current Enteral / Parental: TPN Tube Feeding Supplement Streng: Full Current Duration: 24 Current Calories: 1838 Current Protein: 76 Current Lipids Calories: 275 Total Current Calories: 2111 kcal Recommended Tube Feeding Formu: 75 ml/hr final rate + 250ml lipids/12 hrs Nutrition Monitoring & Eval RD Patient Assessment Time: [address] Assessment Type: RD Re-Assessment Patient Nutrition Acuity: 1-High Follow Up Date: Oct 18, 2017 Nutritional Comment: 10/05 Pt admitted for SBO and pneumonia. Pt is experiencing N/V, fever and abdominal pain. Pt is on NPO diet with meds only. Pt has a hx of colon cancer. Pt had a colostomy placed (09/10). Pt mother states the his bowel movements have in his bag have been more bulky. She states that he eats reasonably well. However, in doctor's note he had stated if pt does not eat within the next 5-6 days a PICC line and TPN would be placed. Mother agreed to this plan. Pt WBC was elevated and has reach WNR. Pt is on antibiotics for pneumonia. Pt has pelvic fluid collection and at risk for sepsis. Pt has low Na (130) and low H/H. Continue to monitor pt progress, labs and diet advancement. -MT 10/07 Pt continues on NPO diet, he is now on day three. Pt states that he wants water. Pt still has evidence of SBO and fluid collection. In the doctor's note it states pt is getting to the point where we will need to consider PICC line and starting TPN. Pt may benefit from 1800 ml TPN at 75ml/hr providing 1836 kcal ad 76g protein. This will meet 94% of the pt energy needs and 97% protein. Pt has low alb (2.3), no other concern labs at this time. Will continue to monitor pt progress and TPN order. -MT 10/08 Pt 4th day NPO. Per Dr notes, pt will start TPN today. Alb has declined to 2. Recommend final TPN rate of 75 ml/hr plus lipids to meet 109% est kcal and 97% est protein needs. 10/10 Low H/H, Alb 2.0, Low Ca+. TPN delayed until Wednesday (10/11), bowel sounds now present. Follow clinical progression. -DRT 10/12 Continues to have low H/H, low WBC, Na (127), alb (2.1) and elevated K+ (6.9). Pt started TPN (10/11). NG tube and perez removed. Pt did swallowing eval. No concern at this time. Will continue to monitor pt progress and diet advancement. -MT 10/15 No complaints. Pt has mild fever. Pt is still weak and experiencing tremors in both LE. DAQUAN removed yesterday (10/14). Colostomy bag continues to have gas in it, however no BM. Per doctor note continue bowel rest and TPN while we await return of bowel function. Pt urinary retention and pneumonia have been resolved. Pt Na is low (133). Pt is receiving IV Na PRN. Will continue to monitor pt progress, labs and encourage intake.-MT 10/18 Pt continues on TPN until bowel function returns to normal. Per doctor note, will do a trial of Erythromycin for potential bowel dysmotility. Did two enemas, got some liquids in colostomy bag. However doctors note states GI has gotten worse. Pt is distended with N/V. Pt had a fever yesterday (101) with elevated WAC (11.1) and blood glucose ( 128). Pt has had a 5# wt loss since 10/12 (146#) to now (141). Will continue to monitor pt progress, labs and diet advancement. -DAVID VELEZ Oct 18, 2017 09:28
[2017-10-18] MEDS: FAT EMULSION 20% 250 ML BAG 250 ML IVPB SCH (17:55)
[2017-10-18] MEDS: KCL/DNS 20 MEQ/1000 ML PREMIX 1,000 ML IV PRN (18:30)
[2017-10-18 18:37] VITALS: BP 120/70
[2017-10-18] MEDS: OLANZapine ZYDIS ODT 5MG TABDP PO SCH (20:31)
[2017-10-18] MEDS: VALPROATE SOD 100 MG/ML VIAL 1,000 MG in NS(*) 0.9% 100 ML BAG 100 ML IVPB SCH (21:13)
[2017-10-18 23:37] VITALS: BP 115/68
[2017-10-19 03:44] VITALS: BP 104/59
[2017-10-19] MEDS: ALBUTEROL/IPRATROPIUM 3 ML NEB NEB SCH ×3 (05:12→17:03)
[2017-10-19] MEDS: IMIPENEM/CILASTA(*) 500MG VIAL 500 MG in NS(*) 0.9% 100 ML BAG 100 ML IVPB SCH ×4 (05:25→20:54)
[2017-10-19 05:46] LABS: PLATELET COUNT, AUTOMATED 414 K/uL (150-450)
[2017-10-19] MEDS: HYDROmorphone HCL 2 MG/ML SDV IVP PRN ×3 (06:31→19:47)
--- NOTE | 2017-10-19 06:38 | RADIOLOGY IMAGING REPORT ---
FACILITY: [facility] PATIENT NAME: Matthew Roth : 1960 MR: [id number] V: [id number] EXAM DATE: ORDERING PHYSICIAN: ZACH CLAUDIO TECHNOLOGIST: Location: [facility] [place] Patient: Matthew Roth : 1960 Visit/Account:[id number] Date of Sevice: 10/19/2017 KUB SINGLE VIEW ABDOMEN Indication: SBO vs ileus Comparison: Abdomen radiograph 10/16/2004 Findings: And nasogastric tube with tip in the body of stomach is seen. Dilated dilated loops of sma ll bowel are seen. There are surgical sutures in the rectum. Rectal tube is identified. IMPRESSION: 1. Findings consistent with small bowel obstruction. No evidence of abdominal free air. 2. Nasogastric tube and rectal tubes in good position. Report Dictated By: Adal Philip at 10/19/2017 6:32 AM Report E-Signed By: Adal Philip at 10/19/2017 6:34 AM WSN:[id number]
--- NOTE | 2017-10-19 08:01 | General Surgery Progress Note ---
Subjective Progress Notes Subjective No complaints this morning. Feels better today than yesterday after NG tube was placed. Physical Exam Vital Signs Date Time Temp Pulse Resp B/P (MAP) Pulse Ox O2 Delivery O2 Flow Rate FiO2 10/19/17 07:35 96 Nasal Cannula 3.0 10/19/17 03:44 98.5 91 26 104/59 (74) General Appearance: Alert, Awake, No Acute Distress, Afebrile GI: Soft and Non-Tender (Much lest distended. No peritoneal signs, no TTP. Stoma is pink and functional.) Extremities: Warm, Perfused Result Diagram: 10/19/1751510/19/17515 Assessment and Plan Problems: (1) Small bowel obstruction due to postoperative adhesions Status: Acute Assessment & Plan: 10/04/17: Admit, nothing by mouth, IV fluids, bowel rest, conservative management start with. We'll follow his x-rays and NG tube output as well as stoma output. We will hold off on any sort of surgery until he is about 6 weeks out from his initial resection surgery. Hopefully he will respond to conservative management. His last meal was yesterday and his mother reports that he has been eating reasonably well. If he is unable to eat and about 5 or 6 days then we will need to consider a PICC line and starting TPN. I have explained this plan to the patient's mother and she seems to understand and seems to be agreeable with this plan. 10/05/17: Continued small bowel obstruction clinically and radiographically based on his KUB this morning. Will continue conservative management with NG tube decompression, bowel rest, and IV fluids. Continue IV antibiotics for pneumonia. If he fails to get better in the next several days may consider diagnostic laparoscopy with drainage of the pelvic fluid collection and inspection of his small bowel. We'll let his small bowel decompress further before contemplating this. 10/06/17: Will give po gastrograffin and will get CT this afternoon. KUB a little better but not much function from stoma. May need to consider exploratory laparoscopy tomorrow if not getting better. Stoma with white patches and area of necrosis on inferior portion only. Possibly the stoma appliance was cut too tight and pressing on the stoma, will need to follow this. Will add antifungal coverage in case white patches represent fungal infection of stoma although I don't recall every having seen this. Pt still with intermittent low grade fevers on broad spectrum antibiotic coverage so antifungal coverage will broaden that coverage as well. O/W, CCM. 10/07/17: Not much change. No stoma output. KUB has not yet been done this morning. Labs OK. Still with low grade fevers. WBC normal, neutrophil count coming down. CT abd/pelvis yesterday with decreased small bowel distension but still with evidence of SBO, fluid collection in unchanged, no free fluid or air. 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 Will await KUB. Getting to the point where we will need to consider PICC line and starting TPN. May discuss laparoscopic exploration later today; will discuss with patient's mother. 10/08/17: 4 weeks s/p robotic LAR, POD#1 s/p ex-laparoscopy with RILEY and drainage of presacral fluid. Doing well. WBC normal. Will follow fevers/ vitals, etc. Place PICC today to start TPN. Await return of bowel function. 10/09/17: POD2 ex laparoscopy. Awaiting return of bowel function. +BS and minimal NGT output so may be soon. Plan to start TPN on Wednesday. Patient needs to ambulate. Continue abx for pneumonia. Will try to remove perez catheter tomorrow. 10/10/17: POD3 ex laparoscopy. Still awaiting return of bowel function. Clamp NGT till noon and remove if low residuals and in good position on KUB. continue abx, continue perez. dropped MIVF to 75cc/hr. Patient is not participating with therapy. Good bowel sounds so started bowel reg today, senna s/miralax. 10/11/17: POD4 ex laparoscopy. Awaiting bowel function. NGT removed yesterday. Plan PICC/TPN today. Will need swallow eval before taking orals, could not tolerate bowel reg yesterday. May attempt to remove perez today. Ordered labs. 10/12/17: POD#5. Stable. Started TPN yesterday. KUB with gas throughout colon , I suspect we'll start seeing gas in stoma bag in next day or two. Still some dilated small bowel but colon looks better on KUB. Perez out, patient seems to be urinating without problems. CCM until bowel function returns. 10/13/17: POD#6. Doing well but still no evidence of bowel function. Continue bowel rest and TPN. Await return of bowel function. COntinue lovenox and PPI. CCM. 10/14/17: POD#7. Doing well. DAQUAN removed yesterday. KUB continues to improve with gas to distal colon but still no activity from stoma yet. Continue bowel rest and TPN while we await return of bowel function. Continue lovenox and PPI. 10/15/17: POD#8. Doing well but now with mild fevers and intermittent tachycardia. He has no pain and his abdominal exam is benign. Will get CXR and check UA. He's not on abx other than diflucan at this point. Continue bowel rest and TPN until bowel function returns. Continue lovenox, PPI. Hopeful for return of bowel function soon. 10/16/17: POD#9. Appears to be at his baseline. Ambulated with PT yesterday> 100 feet. Urinary incomplete emptying- started on Flomax 10/15. Stoma was irrigated with Fleets Enema by Dr Claudio 10/15 with nothing more out than enema fluid. He has no pain and his abdominal exam is benign. 10/15/17 with T max 100.4- CXR was clear and UA was clear--both improved today. Off abx but remains on Diflucan for ronda appearance of the stoma noted earlier in hospitalization. Will do a trial of Erythromycin for potential bowel dysmotility (secondary to bipolar meds?) Continue bowel rest and TPN until bowel function returns. Continue Lovenox, PPI. 10/16/17: POD#10. Appears to be at his baseline. Ambulated with PT yesterday> 100 feet x 2; stronger. Urinary incomplete emptying- started on Flomax 10/15 and bladder scan was minimal for retained fluid. Started on po erythromycin for dysmotility. Stoma with large gas and small liquid out. Started on clear liquids today. He has no pain and his abdominal exam is benign. Off abx and diflucan now while undergoing trial of Erythromycin. Continue TPN until full bowel function/appetite returns. Continue Lovenox, PPI. 10/16/17 (Addendum @ 1220): Intermittent tachycardia. Peristomal hernia noted upon standing by nursing staff. This has been noted previously. No gas output or liquid output since 0600 this AM. Abdomen remains benign to my exam. Discussed care plan with Dr Claudio and will try another enema today. Will continue erythromycin as a potential pro motility agent. 10/17/17: POD#11. Worsened from GI standpoint. Now with increased abdominal distension with N/V this morning. I stopped erythromycin and backed off on his diet. He had a fever this morning to 101F. Will obtain saucedo-cultures including cultures from his PICC line. Will get CXR, empirically start primaxin. May need to repeat abdominal CT. Will see how he does today and what cultures show , etc reveal. 10/18/17: POD#12. Doing better after Perez, NG tube placed and abx restarted. KUB c/w worsened ileus vs SBO. Fevers to over 101F yesterday, no fevers overnight, HR down this morning. Will repeat CT abd/pelvis today. Continue bowel rest, NG tube, TPN. No growth from cultures yet. (2) Pneumonia Status: Resolved Assessment & Plan: Now Off Antibiotics; Being treated with albuterol for expiratory wheezing (3) Urinary retention with incomplete bladder emptying Status: Chronic Assessment & Plan: Perez catheter out; Started on Flomax 10/15/17 for incomplete emptying 10/17/17: Bladder scan with minimal retained urine (4) Bipolar disorder, unspecified Status: Chronic Assessment & Plan: On Home medications (5) ANEMIA IN OTHER CHRONIC DISEASES CLASSIFIED ELSEWHERE Status: Chronic Assessment & Plan: Anemia likely secondary to chronic disease; Monitor (6) Hyponatremia Status: Acute Assessment & Plan: 10/16/17: Appears to be euvolemic; Can adjust IV Fluids; Monitor 10/17/17: Sodium 132; on fluid restriction. IVF changed to NS from 1/2NS. Monitor (7) Hypoalbuminemia due to protein-calorie malnutrition Status: Acute Assessment & Plan: Albumin 2.0; On TPN; Remains NPO due to ileus or bowel dysmotility (8) Hypoxia Status: Acute Assessment & Plan: Remains on 2 liters Nasal Canula; Encourage ambulation/ assisted; Attempt O2 weaning (9) Peristomal hernia Status: Chronic Assessment & Plan: Present on admission exam and CT scan. Does not appear to be the source of his SBO. Easily reducible. Monitor during this acute process but may need repair remotely. Condition Stable. Time Spent: < 30 min Exam Sepsis Risk: Sepsis Risk Problem Qualifiers (1) Pneumonia: Pneumonia type: due to unspecified organism Laterality: unspecified laterality Lung location: unspecified part of lung Qualified Codes: J18.9 - Pneumonia, unspecified organism ZACH CLAUDIO MD Oct 19, 2017 08:00
[2017-10-19] MEDS: [UNRECOGNIZED DRUG - OTHER] IV SCH ×2 (09:21→22:42)
[2017-10-19 10:06] VITALS: BP 112/65
[2017-10-19] MEDS: PANTOPRAZOLE SOD 40 MG IV VIAL IVP SCH (10:07)
[2017-10-19] MEDS: ENOXAPARIN 40 MG/0.4ML SYR SC SCH (10:08)
[2017-10-19] MEDS ORDERED: IOPAMIDOL 76% 75 ML INFUS BTL 75 ML ONE (10:24)
[2017-10-19] MEDS: NS 0.9% IVPB SCH (10:46)
[2017-10-19] MEDS: VALPROATE SOD IVPB SCH (10:46)
--- NOTE | 2017-10-19 11:37 | RADIOLOGY IMAGING REPORT ---
FACILITY: [facility] PATIENT NAME: Matthew Roth : 1960 MR: [id number] V: [id number] EXAM DATE: ORDERING PHYSICIAN: ZACH CLAUDIO TECHNOLOGIST: Location: [facility] Patient: Matthew Roth : 1960 Visit/Account:[id number] Date of Sevice: 10/19/2017 ABDOMEN/PELVIS WITH CONTRAST HISTORY: Persistent SBO vs ileus, fevers TECHNIQUE: Following administration of IV contrast contiguous axial images acquired through the abdom en/pelvis. Coronal and sagittal reformatting also performed. Dose Lowering Technique One of the following dose optimization techniques was utilized in the performance of this exam: Autom ated exposure control; adjustment of the mA and/or kV according to the patient's size; or use of an i terative reconstruction technique. Specific details can be referenced in the facility's radiology C T exam operational policy. CONTRAST: 75 mL Isovue-370 COMPARISON: October 06, 2017 FINDINGS: Visualized lung bases: There is been a slight decrease in small bilateral posterior layering pleural effusions. There is also been partial improvement of the compressive atelectasis lower lobes. Patc hy airspace consolidation in the inferior right middle lobe slightly increased worrisome for focal pn eumonia. The patchy airspace consolidation the inferior lingula has improved Hepatobiliary: Negative. Spleen: Negative. Adrenals: Negative. Pancreas: Negative. Kidneys ureters or bladder: Subcentimeter hypodensities in the kidneys appear stable and are too smal l to characterize by CT . Of note is a Wood catheter within the urinary bladder which also contains a small amount of air l ikely related to the catheter insertion. There is moderate bladder wall thickening Genitalia: Negative. GI: Numerous loops of fluid-filled mildly dilated small bowel seen throughout the abdomen. The over all degree of distention is slightly improved. Transitional point again noted in the pelvis there ar e numerous thickened enhancing loops of small bowel although the degree of thickening appears slightl y improved as well. These bowel loops are just anterior to the presacral fluid collection which appe ars slightly decreased now measuring 2.3 cm in AP dimension on the sagittal image as opposed to 3.2 c m previously no air bubbles are identified within this presacral collection colon does not appear dis tended. Again noted are postsurgical changes from resection of the rectum with a diverting colostomy in the left lower quadrant. Small peristomal hernia again seen containing a knuckle of nondistended small bowel. NG tube again noted in the stomach distal tip in the gastric fundus Vessels/spaces/nodes: Mild vascular calcifications Bones/soft tissues: Mild spondylotic changes of the thoracolumbar spine. Mild anterior wedging of s everal lower thoracic vertebral bodies appears unchanged Additional findings: None pertinent. IMPRESSION: Again noted are findings of small bowel obstruction although the overall degree of distention of the small bowel slightly improved. Transitional point remains in the pelvis where there are numerous thi ckened enhancing loops of small bowel although the degree of thickening also appears slightly improve d. These bowel loops are just anterior to presacral fluid collection which appears slightly decrease d. No air identified within this presacral collection to suggest infection. Post surgical changes from resection of the rectum with a diverting colostomy in the left lower quadr ant. A small parastomal hernia again seen containing a knuckle of nondistended small bowel. Small bilateral posterior layering pleural effusions and compressive atelectasis in both lower lobes slightly decreased Patchy airspace consolidation inferior right middle lobe slightly increased worrisome for focal pneum onia Patchy airspace consolidation the inferior lingula has improved Report Dictated By: Keena Herrera MD at 10/19/2017 11:23 AM Repor E-Signed By: Keena Herrera MD at 10/19/2017 11:33 AM WSN:[email or web address]
[2017-10-19 12:16] VITALS: BP 109/70
[2017-10-19 15:51] VITALS: BP 101/71
[2017-10-19] MEDS: FAT EMULSION 20% 250 ML BAG 250 ML IVPB SCH (17:47)
[2017-10-19 19:49] VITALS: BP 116/96
[2017-10-19] MEDS: OLANZapine ZYDIS ODT 5MG TABDP PO SCH (20:55)
[2017-10-19] MEDS: NS(*) 0.9% 250 ML BAG 250 ML IVPB PRN (20:57)
[2017-10-19] MEDS: VALPROATE SOD 100 MG/ML VIAL 1,000 MG in NS(*) 0.9% 100 ML BAG 100 ML IVPB SCH (21:30)
[2017-10-19 22:44] VITALS: BP 115/74
[2017-10-20] MEDS: HYDROmorphone HCL 2 MG/ML SDV IVP PRN ×4 (01:38→23:58)
[2017-10-20 02:49] VITALS: BP 130/61
[2017-10-20] MEDS: KCL/DNS 20 MEQ/1000 ML PREMIX 1,000 ML IV PRN (03:56)
[2017-10-20] MEDS: IMIPENEM/CILASTA(*) 500MG VIAL 500 MG in NS(*) 0.9% 100 ML BAG 100 ML IVPB SCH ×4 (05:34→23:21)
[2017-10-20] MEDS: ALBUTEROL/IPRATROPIUM 3 ML NEB NEB SCH ×3 (05:54→17:03)
[2017-10-20 06:05] LABS: PLATELET COUNT, AUTOMATED 459 K/uL (150-450)
--- NOTE | 2017-10-20 06:38 | RADIOLOGY IMAGING REPORT ---
FACILITY: [facility] PATIENT NAME: Matthew Roth : 1960 MR: [id number] V: [id number] EXAM DATE: ORDERING PHYSICIAN: ZACH CLAUDIO TECHNOLOGIST: Location: [facility] [place] Patient: Matthew Roth : 1960 Visit/Account:[id number] Date of Sevice: 10/20/2017 KUB SINGLE VIEW ABDOMEN Indication: SBO vs ileus Comparison: Abdomen radiograph 10/19/2017. Findings: Dilated loops of small bowel are seen. There is no evidence of abdominal free air. There is a nasogastric tube with tip in the body the stomach. IMPRESSION: Findings consistent with small bowel obstruction, unchanged from 10/19/2017. Report Dictated By: Adal Philip at 10/20/2017 6:32 AM Report E-Signed By: Adal Philip at 10/20/2017 6:33 AM WSN:[id number]
--- NOTE | 2017-10-20 07:19 | General Surgery Progress Note ---
Subjective Progress Notes Subjective No complaints. No abdominal pain. Perez removed last evening at patient's request. Physical Exam Vital Signs Date Time Temp Pulse Resp B/P (MAP) Pulse Ox O2 Delivery O2 Flow Rate FiO2 10/20/17 05:58 95 16 10/20/17 05:50 94 Nasal Cannula 1.0 10/20/17 02:49 98.5 130/61 (84) General Appearance: Alert, Awake, No Acute Distress, Afebrile GI: Soft and Non-Tender (Stoma is pink without gas or stool in bag. Incisions all look good.) Extremities: Warm, Perfused Result Diagram: 10/20/1752310/20/17523 Assessment and Plan Problems: (1) Small bowel obstruction due to postoperative adhesions Status: Acute Assessment & Plan: 10/04/17: Admit, nothing by mouth, IV fluids, bowel rest, conservative management start with. We'll follow his x-rays and NG tube output as well as stoma output. We will hold off on any sort of surgery until he is about 6 weeks out from his initial resection surgery. Hopefully he will respond to conservative management. His last meal was yesterday and his mother reports that he has been eating reasonably well. If he is unable to eat and about 5 or 6 days then we will need to consider a PICC line and starting TPN. I have explained this plan to the patient's mother and she seems to understand and seems to be agreeable with this plan. 10/05/17: Continued small bowel obstruction clinically and radiographically based on his KUB this morning. Will continue conservative management with NG tube decompression, bowel rest, and IV fluids. Continue IV antibiotics for pneumonia. If he fails to get better in the next several days may consider diagnostic laparoscopy with drainage of the pelvic fluid collection and inspection of his small bowel. We'll let his small bowel decompress further before contemplating this. 10/06/17: Will give po gastrograffin and will get CT this afternoon. KUB a little better but not much function from stoma. May need to consider exploratory laparoscopy tomorrow if not getting better. Stoma with white patches and area of necrosis on inferior portion only. Possibly the stoma appliance was cut too tight and pressing on the stoma, will need to follow this. Will add antifungal coverage in case white patches represent fungal infection of stoma although I don't recall every having seen this. Pt still with intermittent low grade fevers on broad spectrum antibiotic coverage so antifungal coverage will broaden that coverage as well. O/W, CCM. 10/07/17: Not much change. No stoma output. KUB has not yet been done this morning. Labs OK. Still with low grade fevers. WBC normal, neutrophil count coming down. CT abd/pelvis yesterday with decreased small bowel distension but still with evidence of SBO, fluid collection in unchanged, no free fluid or air. 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 Will await KUB. Getting to the point where we will need to consider PICC line and starting TPN. May discuss laparoscopic exploration later today; will discuss with patient's mother. 10/08/17: 4 weeks s/p robotic LAR, POD#1 s/p ex-laparoscopy with RILEY and drainage of presacral fluid. Doing well. WBC normal. Will follow fevers/ vitals, etc. Place PICC today to start TPN. Await return of bowel function. 10/09/17: POD2 ex laparoscopy. Awaiting return of bowel function. +BS and minimal NGT output so may be soon. Plan to start TPN on Wednesday. Patient needs to ambulate. Continue abx for pneumonia. Will try to remove perez catheter tomorrow. 10/10/17: POD3 ex laparoscopy. Still awaiting return of bowel function. Clamp NGT till noon and remove if low residuals and in good position on KUB. continue abx, continue perez. dropped MIVF to 75cc/hr. Patient is not participating with therapy. Good bowel sounds so started bowel reg today, senna s/miralax. 10/11/17: POD4 ex laparoscopy. Awaiting bowel function. NGT removed yesterday. Plan PICC/TPN today. Will need swallow eval before taking orals, could not tolerate bowel reg yesterday. May attempt to remove perez today. Ordered labs. 10/12/17: POD#5. Stable. Started TPN yesterday. KUB with gas throughout colon , I suspect we'll start seeing gas in stoma bag in next day or two. Still some dilated small bowel but colon looks better on KUB. Perez out, patient seems to be urinating without problems. CCM until bowel function returns. 10/13/17: POD#6. Doing well but still no evidence of bowel function. Continue bowel rest and TPN. Await return of bowel function. COntinue lovenox and PPI. CCM. 10/14/17: POD#7. Doing well. DAQUAN removed yesterday. KUB continues to improve with gas to distal colon but still no activity from stoma yet. Continue bowel rest and TPN while we await return of bowel function. Continue lovenox and PPI. 10/15/17: POD#8. Doing well but now with mild fevers and intermittent tachycardia. He has no pain and his abdominal exam is benign. Will get CXR and check UA. He's not on abx other than diflucan at this point. Continue bowel rest and TPN until bowel function returns. Continue lovenox, PPI. Hopeful for return of bowel function soon. 10/16/17: POD#9. Appears to be at his baseline. Ambulated with PT yesterday> 100 feet. Urinary incomplete emptying- started on Flomax 10/15. Stoma was irrigated with Fleets Enema by Dr Claudio 10/15 with nothing more out than enema fluid. He has no pain and his abdominal exam is benign. 10/15/17 with T max 100.4- CXR was clear and UA was clear--both improved today. Off abx but remains on Diflucan for ronda appearance of the stoma noted earlier in hospitalization. Will do a trial of Erythromycin for potential bowel dysmotility (secondary to bipolar meds?) Continue bowel rest and TPN until bowel function returns. Continue Lovenox, PPI. 10/17/17: POD#10. Appears to be at his baseline. Ambulated with PT yesterday> 100 feet x 2; stronger. Urinary incomplete emptying- started on Flomax 10/15 and bladder scan was minimal for retained fluid. Started on po erythromycin for dysmotility. Stoma with large gas and small liquid out. Started on clear liquids today. He has no pain and his abdominal exam is benign. Off abx and diflucan now while undergoing trial of Erythromycin. Continue TPN until full bowel function/appetite returns. Continue Lovenox, PPI. 10/17/17 (Addendum @ 1220): Intermittent tachycardia. Peristomal hernia noted upon standing by nursing staff. This has been noted previously. No gas output or liquid output since 0600 this AM. Abdomen remains benign to my exam. Discussed care plan with Dr Claudio and will try another enema today. Will continue erythromycin as a potential pro motility agent. 10/18/17: POD#11. Worsened from GI standpoint. Now with increased abdominal distension with N/V this morning. I stopped erythromycin and backed off on his diet. He had a fever this morning to 101F. Will obtain saucedo-cultures including cultures from his PICC line. Will get CXR, empirically start primaxin. May need to repeat abdominal CT. Will see how he does today and what cultures show , etc reveal. 10/19/17: POD#12. Doing better after Perez, NG tube placed and abx restarted. KUB c/w worsened ileus vs SBO. Fevers to over 101F yesterday, no fevers overnight, HR down this morning. Will repeat CT abd/pelvis today. Continue bowel rest, NG tube, TPN. No growth from cultures yet. 10/20/17: POD#13. Still without bowel function. CT c/w SBO with loop in pelvis and continued small bowel thickening in pelvis. Presacral fluid collection is small. Parastomal hernia but no obstruction. Pt's been afebrile now back on Primaxin. Continue bowel rest, NG tube decompression, TPN. No growth in cultures. Perez out last evening. Will see how he's able to void bladder. Will get SBFT with water-soluble contrast today. (2) Pneumonia Status: Resolved Assessment & Plan: Now Off Antibiotics; Being treated with albuterol for expiratory wheezing (3) Urinary retention with incomplete bladder emptying Status: Chronic (4) Bipolar disorder, unspecified Status: Chronic Assessment & Plan: On Home medications (5) ANEMIA IN OTHER CHRONIC DISEASES CLASSIFIED ELSEWHERE Status: Chronic Assessment & Plan: Anemia likely secondary to chronic disease; Monitor (6) Hyponatremia Status: Acute Assessment & Plan: 10/16/17: Appears to be euvolemic; Can adjust IV Fluids; Monitor 10/17/17: Sodium 132; on fluid restriction. IVF changed to NS from 1/2NS. Monitor (7) Hypoalbuminemia due to protein-calorie malnutrition Status: Acute Assessment & Plan: Albumin 2.0; On TPN; Remains NPO due to ileus or bowel dysmotility (8) Hypoxia Status: Acute Assessment & Plan: Remains on 2 liters Nasal Canula; Encourage ambulation/ assisted; Attempt O2 weaning (9) Peristomal hernia Status: Chronic Assessment & Plan: Present on admission exam and CT scan. Does not appear to be the source of his SBO. Easily reducible. Monitor during this acute process but may need repair remotely. Condition Stable. Time Spent: < 30 min Exam Sepsis Risk: No Definite Risk Problem Qualifiers (1) Pneumonia: Pneumonia type: due to unspecified organism Laterality: unspecified laterality Lung location: unspecified part of lung Qualified Codes: J18.9 - Pneumonia, unspecified organism ZACH CLAUDIO MD Oct 20, 2017 07:19
[2017-10-20 07:57] VITALS: BP 112/74
[2017-10-20] MEDS: PANTOPRAZOLE SOD 40 MG IV VIAL IVP SCH (08:15)
[2017-10-20] MEDS: ENOXAPARIN 40 MG/0.4ML SYR SC SCH (08:16)
[2017-10-20] MEDS ORDERED: DIATRIZOATE MEGL/DIATRIZOA SOD 120 ML SOLN PO ONE (08:32)
[2017-10-20] MEDS: NS 0.9% IVPB SCH (09:39)
[2017-10-20] MEDS: VALPROATE SOD IVPB SCH (09:39)
--- NOTE | 2017-10-20 09:47 | Medical Nutrition Therapy ---
Nutrition Anthropometrics Height (Inches): 67.00 Height (Calculated Centimeters: 170.354978 Weight (Pounds): 146 Weight (Calculated Kilograms): 66.224 Sherman Nutrition Score: Probably Inadequate Sherman Nutrition Risk Score: 16 Dietary Referral Nutrition Risk Factors: Nutrition Risk Comment: Nutritional Diagnosis Nutritional Risk Acuity 1: TPN/PPN, GI Obstruction (SBO) Past Medical History: fecal incontinence, severe manic bipolar 1 disorder with psychotic behavior, psychogenic polydipsia, hyponatremia, OCD, rectal cancer, SBO, fatigue, weakness, hyperlipidemia, pneumonia, hx colon cancer, pevlic fluid collection Nutritional Acuity: 1-High Nutrition Diagnosis: Inadequate Food Intake Nutrition Etiology: Physiological Causes Nutrition Problem/Etiology/Sym: Inadequate oral intake related to physiological causes as evidence by nutrition support from TPN. Energy Requirement: 2515 ([place] X 1.3SF) Protein Requirement: 86 (1.3gm/kg) Fluid Requirement: 2000 (30ml/kg) Diet Type: NPO/Meds Only, TPN/PPN Nutrition Intervention: Nutrition support (TPN ) Nutritional Support Current Enteral / Parental: TPN Tube Feeding Supplement Streng: Full Rate: 75 ml/hr plus lipids Current Duration: 24 Current Calories: 1838 Current Protein: 76 Current Lipids Calories: 275 Total Current Calories: 2111 kcal Recommended Enteral / Parental: TPN Recommended Tube Feeding Formu: 83 ml/hr final rate + 250ml lipids/12 hrs Recommended Rate: 83ml/hr(2000ml/24 hr) plus lipids Recommended Duration: 24 Recommended Calories: 2040 Recommended Protein: 84 Recommended Lipids Calories: 275 Total Recommended Calories: 2315 Nutrition Monitoring & Eval RD Patient Assessment Time: [address] Assessment Type: RD Re-Assessment Patient Nutrition Acuity: 1-High Follow Up Date: Oct 22, 2017 Nutritional Comment: 10/05 Pt admitted for SBO and pneumonia. Pt is experiencing N/V, fever and abdominal pain. Pt is on NPO diet with meds only. Pt has a hx of colon cancer. Pt had a colostomy placed (09/10). Pt mother states the his bowel movements have in his bag have been more bulky. She states that he eats reasonably well. However, in doctor's note he had stated if pt does not eat within the next 5-6 days a PICC line and TPN would be placed. Mother agreed to this plan. Pt WBC was elevated and has reach WNR. Pt is on antibiotics for pneumonia. Pt has pelvic fluid collection and at risk for sepsis. Pt has low Na (130) and low H/H. Continue to monitor pt progress, labs and diet advancement. -MT 10/07 Pt continues on NPO diet, he is now on day three. Pt states that he wants water. Pt still has evidence of SBO and fluid collection. In the doctor's note it states pt is getting to the point where we will need to consider PICC line and starting TPN. Pt may benefit from 1800 ml TPN at 75ml/hr providing 1836 kcal ad 76g protein. This will meet 94% of the pt energy needs and 97% protein. Pt has low alb (2.3), no other concern labs at this time. Will continue to monitor pt progress and TPN order. -MT 10/08 Pt [address]th [address] NPO. Per Dr notes, pt will start TPN today. Alb has declined to 2. Recommend final TPN rate of 75 ml/hr plus lipids to meet 109% est kcal and 97% est protein needs. 10/10 Low H/H, Alb 2.0, Low Ca+. TPN delayed until Wednesday (10/11), bowel sounds now present. Follow clinical progression. -DRT 10/12 Continues to have low H/H, low WBC, Na (127), alb (2.1) and elevated K+ (6.9). Pt started TPN (10/11). NG tube and perez removed. Pt did swallowing eval. No concern at this time. Will continue to monitor pt progress and diet advancement. -MT 10/15 No complaints. Pt has mild fever. Pt is still weak and experiencing tremors in both LE. DAQUAN removed yesterday (10/14). Colostomy bag continues to have gas in it, however no BM. Per doctor note continue bowel rest and TPN while we await return of bowel function. Pt urinary retention and pneumonia have been resolved. Pt Na is low (133). Pt is receiving IV Na PRN. Will continue to monitor pt progress, labs and encourage intake.-MT 10/18 Pt continues on TPN until bowel function returns to normal. Per doctor note, will do a trial of Erythromycin for potential bowel dysmotility. Did two enemas, got some liquids in colostomy bag. However doctors note states GI has gotten worse. Pt is distended with N/V. Pt had a fever yesterday (101) with elevated WAC (11.1) and blood glucose ( 128). Pt has had a 5# wt loss since 10/12 (146#) to now (141). Will continue to monitor pt progress, labs and diet advancement. -MT 10/20 Wt is down 10# since admission. Alb 2.5 is improving. Pt cont on TPN. Reassessed nutritional needs with est higher kcal and protein needs. Recommend increase TPN to 2000 ml/24 hr plus 25ml lipidsx 12 hrs to meet 95% est kcal and 98% est protein needs. Cont to monitor. Copies To Copies to: ZACH CLAUDIO MD, BETH Oct 20, 2017 09:47
[2017-10-20 10:51] VITALS: BP 106/72
[2017-10-20] MEDS: [UNRECOGNIZED DRUG - OTHER] IV SCH ×2 (11:14→22:41)
[2017-10-20 14:19] VITALS: BP 117/76
--- NOTE | 2017-10-20 15:57 | RADIOLOGY IMAGING REPORT ---
FACILITY: [facility] - [place] PATIENT NAME: Matthew Roth : 1960 MR: [id number] V: [id number] EXAM DATE: ORDERING PHYSICIAN: ZACH CLAUDIO TECHNOLOGIST: Location: [facility] Patient: Matthew Roth : 1960 Visit/Account:[id number] Date of Sevice: 10/20/2017 Exam type: SMALL BOWEL SERIES History: SBO vs adynamic ileus; water soluble contrast only Comparison: KUB performed earlier today. Findings: The patient received Gastrografin suspension was instilled into the stomach through the existing NG t ube. The Gastrografin was followed through the small bowel to the left side of the colon. The proxi mal duodenum and jejunal loops do not appear dilated. The mid and distal jejunum and ileum did not a ppear dilated with the loops measuring small bowel loops measuring up to 5.3 cm. The Gastrografin di d however subsequently slowly pass through the left-sided colon by four hours and 15 minutes. These findings are more in keeping with an ileus as opposed to an SBO All of the images were obtained portably. Fluoroscopy was not performed IMPRESSION: 1. Findings are more in keeping with an ileus as opposed to SBO. Transit time through the dilated s mall bowel to the left-sided colon was four hours and 15 minutes a transitional point was not seen Report Dictated By: Keena Herrera MD at 10/20/2017 3:47 PM Report E-Signed By: Keena Herrera MD at 10/20/2017 3:53 PM [id number]:[email or web address]
[2017-10-20] MEDS: FAT EMULSION 20% 250 ML BAG 250 ML IVPB SCH (17:22)
[2017-10-20 18:37] VITALS: BP 128/75
[2017-10-20] MEDS: KETOROLAC 30 MG/ML VIAL IVP PRN (18:45)
[2017-10-20] MEDS: OLANZapine ZYDIS ODT 5MG TABDP PO SCH (21:02)
[2017-10-20] MEDS: ACETAMINOPHEN(*)1000 MG/100 ML 100 ML IVPB PRN (21:02)
[2017-10-20] MEDS: VALPROATE SOD 100 MG/ML VIAL 1,000 MG in NS(*) 0.9% 100 ML BAG 100 ML IVPB SCH (21:26)
[2017-10-20] MEDS: ONDANSETRON 4 MG/2 ML VIAL IVP PRN (21:36)
[2017-10-20 23:25] VITALS: BP 128/75
[2017-10-21] MEDS: KETOROLAC 30 MG/ML VIAL IVP PRN ×3 (05:10→18:25)
[2017-10-21 05:13] VITALS: BP 121/79
[2017-10-21] MEDS: IMIPENEM/CILASTA(*) 500MG VIAL 500 MG in NS(*) 0.9% 100 ML BAG 100 ML IVPB SCH ×3 (05:16→17:27)
[2017-10-21] MEDS: ALBUTEROL/IPRATROPIUM 3 ML NEB NEB SCH ×3 (05:25→16:45)
--- NOTE | 2017-10-21 06:07 | RADIOLOGY IMAGING REPORT ---
FACILITY: [facility] PATIENT NAME: Matthew Roth : 1960 MR: [id number] V: [id number] EXAM DATE: ORDERING PHYSICIAN: ZACH CLAUDIO TECHNOLOGIST[place] [facility] [place] : 1960 Visit/Account:[id number] Date of Sevice: 10/21/2017 KUB SINGLE VIEW ABDOMEN Indication: SBO vs adynamic ileus Comparison: Abdomen radiograph 10/20/2017. Findings: Oral contrast is seen throughout the colon. Distended air-filled small bowel is unchanged. There is no free air. IMPRESSION: 1. Oral contrast placed yesterday is now in the colon, consistent with nonobstructed bowel. 2. Abnormally dilated air-filled small bowel, consistent with adynamic ileus. Report Dictated By: Adal Philip at 10/21/2017 6:02 AM Report E-Signed By: Adal Philip at 10/21/2017 6:04 AM WSN:[id number]
[2017-10-21 06:28] LABS: PLATELET COUNT, AUTOMATED 530 K/uL (150-450)
[2017-10-21] MEDS: ACETAMINOPHEN(*)1000 MG/100 ML 100 ML IVPB PRN ×3 (06:53→22:56)
[2017-10-21] MEDS: HYDROmorphone HCL 2 MG/ML SDV IVP PRN ×5 (07:37→20:07)
[2017-10-21 07:41] VITALS: BP 125/72
[2017-10-21] MEDS: PANTOPRAZOLE SOD 40 MG IV VIAL IVP SCH (08:16)
[2017-10-21] MEDS: ENOXAPARIN 40 MG/0.4ML SYR SC SCH (08:16)
[2017-10-21] MEDS: VALPROATE SOD IVPB SCH (09:24)
[2017-10-21] MEDS: NS 0.9% IVPB SCH ×2 (09:24→20:06)
[2017-10-21 11:01] VITALS: BP 120/78
[2017-10-21] MEDS: [UNRECOGNIZED DRUG - OTHER] IV SCH ×2 (11:26→23:54)
[2017-10-21 15:24] VITALS: BP 114/76
--- NOTE | 2017-10-21 15:48 | General Surgery Progress Note ---
Subjective Progress Notes Subjective No complaints. Physical Exam Vital Signs Date Time Temp Pulse Resp B/P (MAP) Pulse Ox O2 Delivery O2 Flow Rate FiO2 10/21/17 15:24 98.2 106 20 114/76 (89) 98 Nasal Cannula 2.0 Intake and Output 10/22/17 07:00 Intake Total 692 ml Output Total 250 ml Balance 442 ml IV Total 692 ml Output Urine Total 150 ml Gastric Drainage Total 100 ml # Voids 2 General Appearance: Alert, Awake, No Acute Distress, Afebrile GI: Soft and Non-Tender (Stoma is pink with stool in bag) Extremities: Warm, Perfused Result Diagram: 10/21/1761810/21/17618 Assessment and Plan Problems: (1) Small bowel obstruction due to postoperative adhesions Status: Acute Assessment & Plan: 10/04/17: Admit, nothing by mouth, IV fluids, bowel rest, conservative management start with. We'll follow his x-rays and NG tube output as well as stoma output. We will hold off on any sort of surgery until he is about 6 weeks out from his initial resection surgery. Hopefully he will respond to conservative management. His last meal was yesterday and his mother reports that he has been eating reasonably well. If he is unable to eat and about 5 or 6 days then we will need to consider a PICC line and starting TPN. I have explained this plan to the patient's mother and she seems to understand and seems to be agreeable with this plan. 10/05/17: Continued small bowel obstruction clinically and radiographically based on his KUB this morning. Will continue conservative management with NG tube decompression, bowel rest, and IV fluids. Continue IV antibiotics for pneumonia. If he fails to get better in the next several days may consider diagnostic laparoscopy with drainage of the pelvic fluid collection and inspection of his small bowel. We'll let his small bowel decompress further before contemplating this. 10/06/17: Will give po gastrograffin and will get CT this afternoon. KUB a little better but not much function from stoma. May need to consider exploratory laparoscopy tomorrow if not getting better. Stoma with white patches and area of necrosis on inferior portion only. Possibly the stoma appliance was cut too tight and pressing on the stoma, will need to follow this. Will add antifungal coverage in case white patches represent fungal infection of stoma although I don't recall every having seen this. Pt still with intermittent low grade fevers on broad spectrum antibiotic coverage so antifungal coverage will broaden that coverage as well. O/W, CCM. 10/07/17: Not much change. No stoma output. KUB has not yet been done this morning. Labs OK. Still with low grade fevers. WBC normal, neutrophil count coming down. CT abd/pelvis yesterday with decreased small bowel distension but still with evidence of SBO, fluid collection in unchanged, no free fluid or air. 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 Will await KUB. Getting to the point where we will need to consider PICC line and starting TPN. May discuss laparoscopic exploration later today; will discuss with patient's mother. 10/08/17: 4 weeks s/p robotic LAR, POD#1 s/p ex-laparoscopy with RILEY and drainage of presacral fluid. Doing well. WBC normal. Will follow fevers/ vitals, etc. Place PICC today to start TPN. Await return of bowel function. 10/09/17: POD2 ex laparoscopy. Awaiting return of bowel function. +BS and minimal NGT output so may be soon. Plan to start TPN on Wednesday. Patient needs to ambulate. Continue abx for pneumonia. Will try to remove perez catheter tomorrow. 10/10/17: POD3 ex laparoscopy. Still awaiting return of bowel function. Clamp NGT till noon and remove if low residuals and in good position on KUB. continue abx, continue perez. dropped MIVF to 75cc/hr. Patient is not participating with therapy. Good bowel sounds so started bowel reg today, senna s/miralax. 10/11/17: POD4 ex laparoscopy. Awaiting bowel function. NGT removed yesterday. Plan PICC/TPN today. Will need swallow eval before taking orals, could not tolerate bowel reg yesterday. May attempt to remove perez today. Ordered labs. 10/12/17: POD#5. Stable. Started TPN yesterday. KUB with gas throughout colon , I suspect we'll start seeing gas in stoma bag in next day or two. Still some dilated small bowel but colon looks better on KUB. Perez out, patient seems to be urinating without problems. CCM until bowel function returns. 10/13/17: POD#6. Doing well but still no evidence of bowel function. Continue bowel rest and TPN. Await return of bowel function. COntinue lovenox and PPI. CCM. 10/14/17: POD#7. Doing well. DAQUAN removed yesterday. KUB continues to improve with gas to distal colon but still no activity from stoma yet. Continue bowel rest and TPN while we await return of bowel function. Continue lovenox and PPI. 10/15/17: POD#8. Doing well but now with mild fevers and intermittent tachycardia. He has no pain and his abdominal exam is benign. Will get CXR and check UA. He's not on abx other than diflucan at this point. Continue bowel rest and TPN until bowel function returns. Continue lovenox, PPI. Hopeful for return of bowel function soon. 10/16/17: POD#9. Appears to be at his baseline. Ambulated with PT yesterday> 100 feet. Urinary incomplete emptying- started on Flomax 10/15. Stoma was irrigated with Fleets Enema by Dr Claudio 10/15 with nothing more out than enema fluid. He has no pain and his abdominal exam is benign. 10/15/17 with T max 100.4- CXR was clear and UA was clear--both improved today. Off abx but remains on Diflucan for ronda appearance of the stoma noted earlier in hospitalization. Will do a trial of Erythromycin for potential bowel dysmotility (secondary to bipolar meds?) Continue bowel rest and TPN until bowel function returns. Continue Lovenox, PPI. 10/17/17: POD#10. Appears to be at his baseline. Ambulated with PT yesterday> 100 feet x 2; stronger. Urinary incomplete emptying- started on Flomax 10/15 and bladder scan was minimal for retained fluid. Started on po erythromycin for dysmotility. Stoma with large gas and small liquid out. Started on clear liquids today. He has no pain and his abdominal exam is benign. Off abx and diflucan now while undergoing trial of Erythromycin. Continue TPN until full bowel function/appetite returns. Continue Lovenox, PPI. 10/17/17 (Addendum @ 1220): Intermittent tachycardia. Peristomal hernia noted upon standing by nursing staff. This has been noted previously. No gas output or liquid output since 0600 this AM. Abdomen remains benign to my exam. Discussed care plan with Dr Claudio and will try another enema today. Will continue erythromycin as a potential pro motility agent. 10/18/17: POD#11. Worsened from GI standpoint. Now with increased abdominal distension with N/V this morning. I stopped erythromycin and backed off on his diet. He had a fever this morning to 101F. Will obtain saucedo-cultures including cultures from his PICC line. Will get CXR, empirically start primaxin. May need to repeat abdominal CT. Will see how he does today and what cultures show , etc reveal. 10/19/17: POD#12. Doing better after Perez, NG tube placed and abx restarted. KUB c/w worsened ileus vs SBO. Fevers to over 101F yesterday, no fevers overnight, HR down this morning. Will repeat CT abd/pelvis today. Continue bowel rest, NG tube, TPN. No growth from cultures yet. 10/20/17: POD#13. Still without bowel function. CT c/w SBO with loop in pelvis and continued small bowel thickening in pelvis. Presacral fluid collection is small. Parastomal hernia but no obstruction. Pt's been afebrile now back on Primaxin. Continue bowel rest, NG tube decompression, TPN. No growth in cultures. Perez out last evening. Will see how he's able to void bladder. Will get SBFT with water-soluble contrast today. 10/21/17: POD#14. Possibly doing better? Having some stool output in bag. NG not putting out too much. Will start NG clamp trials. SBFT yesterday revealed no obstruction but c/w adynamic ileus. Now starting to see gastrograffin in stoma bag. Will try erythromycin as promotility agent. (2) Pneumonia Status: Resolved Assessment & Plan: Now Off Antibiotics; Being treated with albuterol for expiratory wheezing (3) Urinary retention with incomplete bladder emptying Status: Chronic (4) Bipolar disorder, unspecified Status: Chronic Assessment & Plan: On Home medications (5) ANEMIA IN OTHER CHRONIC DISEASES CLASSIFIED ELSEWHERE Status: Chronic Assessment & Plan: Anemia likely secondary to chronic disease; Monitor (6) Hyponatremia Status: Acute Assessment & Plan: 10/16/17: Appears to be euvolemic; Can adjust IV Fluids; Monitor 10/17/17: Sodium 132; on fluid restriction. IVF changed to NS from 1/2NS. Monitor (7) Hypoalbuminemia due to protein-calorie malnutrition Status: Acute Assessment & Plan: Albumin 2.0; On TPN; Remains NPO due to ileus or bowel dysmotility (8) Hypoxia Status: Acute Assessment & Plan: Remains on 2 liters Nasal Canula; Encourage ambulation/ assisted; Attempt O2 weaning (9) Peristomal hernia Status: Chronic Assessment & Plan: Present on admission exam and CT scan. Does not appear to be the source of his SBO. Easily reducible. Monitor during this acute process but may need repair remotely. Condition Stable. Time Spent: < 30 min Exam Sepsis Risk: No Definite Risk Problem Qualifiers (1) Pneumonia: Pneumonia type: due to unspecified organism Laterality: unspecified laterality Lung location: unspecified part of lung Qualified Codes: J18.9 - Pneumonia, unspecified organism ZACH CLAUDIO MD Oct 21, 2017 15:48
[2017-10-21] MEDS: FAT EMULSION 20% 250 ML BAG 250 ML IVPB SCH (18:25)
[2017-10-21] MEDS: [UNRECOGNIZED DRUG - OTHER] IVPB SCH (20:06)
[2017-10-21] MEDS: TAMSULOSIN HCL 0.4 MG CAP PO SCH (20:07)
[2017-10-21 20:20] VITALS: BP 125/73
[2017-10-21] MEDS: OLANZapine ZYDIS ODT 5MG TABDP PO SCH (21:26)
[2017-10-21] MEDS: VALPROATE SOD 100 MG/ML VIAL 1,000 MG in NS(*) 0.9% 100 ML BAG 100 ML IVPB SCH (21:30)
[2017-10-21] MEDS: KCL/DNS 20 MEQ/1000 ML PREMIX 1,000 ML IV PRN (22:56)
[2017-10-22] MEDS: HYDROmorphone HCL 2 MG/ML SDV IVP PRN ×7 (00:23→23:30)
[2017-10-22] MEDS: IMIPENEM/CILASTA(*) 500MG VIAL 500 MG in NS(*) 0.9% 100 ML BAG 100 ML IVPB SCH ×5 (00:41→23:30)
[2017-10-22] MEDS: KETOROLAC 30 MG/ML VIAL IVP PRN ×4 (01:46→20:24)
[2017-10-22 01:48] VITALS: BP 118/63
[2017-10-22] MEDS: NS 0.9% IVPB SCH ×5 (01:54→20:14)
[2017-10-22] MEDS: [UNRECOGNIZED DRUG - OTHER] IVPB SCH ×4 (01:54→20:14)
[2017-10-22 04:32] VITALS: BP 131/98
[2017-10-22] MEDS: ACETAMINOPHEN(*)1000 MG/100 ML 100 ML IVPB PRN ×3 (05:08→19:21)
[2017-10-22] MEDS: ALBUTEROL/IPRATROPIUM 3 ML NEB NEB SCH (05:40)
[2017-10-22 06:05] LABS: PLATELET COUNT, AUTOMATED 573 K/uL (150-450)
--- NOTE | 2017-10-22 07:03 | RADIOLOGY IMAGING REPORT ---
[place] [facility] [place] Matthew Roth : 1960 MR: [id number] V: [id number] EXAM DATE: ORDERING PHYSICIAN: ZACH CLAUDIO TECHNOLOGIST: Location: [facility] Patient: Matthew Roth : 1960 Visit/Account:[id number] Date of Sevice: 10/22/2017 INDICATION: ileus EXAM DATE: 10/22/2017 5:00 AM COMPARISON: Yesterday. FINDINGS: 2 AP supine images of the abdomen. Oral contrast is seen to the mid sigmoid colon in the left lower quadrant ostomy. There are persiste ntly dilated and gas-filled loops of small bowel. No pneumatosis, pneumoperitoneum or portal venous g as. No evidence of large volume ascites or mass. No acute osseous abnormality. IMPRESSION: Persistently dilated loops of small bowel, though enteric contrast is seen to the distal colon in the left lower quadrant ostomy. This could indicate ileus or incomplete obstruction. Report Dictated By: Bill Roman MD at 10/22/2017 6:58 AM Report E-Signed By: Bill Roman MD at 10/22/2017 7:00 AM WSN:[id number]
--- NOTE | 2017-10-22 07:25 | General Surgery Progress Note ---
Subjective Progress Notes Subjective No complaints. Physical Exam Vital Signs Date Time Temp Pulse Resp B/P (MAP) Pulse Ox O2 Delivery O2 Flow Rate FiO2 10/22/17 05:40 66 16 10/22/17 05:40 94 Nasal Cannula 4.0 10/22/17 04:32 98.1 131/98 (109) General Appearance: Alert, Awake, No Acute Distress, Afebrile GI: Soft and Non-Tender (Stoma is pink and function with liquid brown stool in bag.) Extremities: Warm, Perfused Result Diagram: 10/22/17 0539 10/22/17 0539 Assessment and Plan Problems: (1) Small bowel obstruction due to postoperative adhesions Status: Acute Assessment & Plan: 10/04/17: Admit, nothing by mouth, IV fluids, bowel rest, conservative management start with. We'll follow his x-rays and NG tube output as well as stoma output. We will hold off on any sort of surgery until he is about 6 weeks out from his initial resection surgery. Hopefully he will respond to conservative management. His last meal was yesterday and his mother reports that he has been eating reasonably well. If he is unable to eat and about 5 or 6 days then we will need to consider a PICC line and starting TPN. I have explained this plan to the patient's mother and she seems to understand and seems to be agreeable with this plan. 10/05/17: Continued small bowel obstruction clinically and radiographically based on his KUB this morning. Will continue conservative management with NG tube decompression, bowel rest, and IV fluids. Continue IV antibiotics for pneumonia. If he fails to get better in the next several days may consider diagnostic laparoscopy with drainage of the pelvic fluid collection and inspection of his small bowel. We'll let his small bowel decompress further before contemplating this. 10/06/17: Will give po gastrograffin and will get CT this afternoon. KUB a little better but not much function from stoma. May need to consider exploratory laparoscopy tomorrow if not getting better. Stoma with white patches and area of necrosis on inferior portion only. Possibly the stoma appliance was cut too tight and pressing on the stoma, will need to follow this. Will add antifungal coverage in case white patches represent fungal infection of stoma although I don't recall every having seen this. Pt still with intermittent low grade fevers on broad spectrum antibiotic coverage so antifungal coverage will broaden that coverage as well. O/W, CCM. 10/07/17: Not much change. No stoma output. KUB has not yet been done this morning. Labs OK. Still with low grade fevers. WBC normal, neutrophil count coming down. CT abd/pelvis yesterday with decreased small bowel distension but still with evidence of SBO, fluid collection in unchanged, no free fluid or air. 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 Will await KUB. Getting to the point where we will need to consider PICC line and starting TPN. May discuss laparoscopic exploration later today; will discuss with patient's mother. 10/08/17: 4 weeks s/p robotic LAR, POD#1 s/p ex-laparoscopy with RILEY and drainage of presacral fluid. Doing well. WBC normal. Will follow fevers/ vitals, etc. Place PICC today to start TPN. Await return of bowel function. 10/09/17: POD2 ex laparoscopy. Awaiting return of bowel function. +BS and minimal NGT output so may be soon. Plan to start TPN on Wednesday. Patient needs to ambulate. Continue abx for pneumonia. Will try to remove perez catheter tomorrow. 10/10/17: POD3 ex laparoscopy. Still awaiting return of bowel function. Clamp NGT till noon and remove if low residuals and in good position on KUB. continue abx, continue perez. dropped MIVF to 75cc/hr. Patient is not participating with therapy. Good bowel sounds so started bowel reg today, senna s/miralax. 10/11/17: POD4 ex laparoscopy. Awaiting bowel function. NGT removed yesterday. Plan PICC/TPN today. Will need swallow eval before taking orals, could not tolerate bowel reg yesterday. May attempt to remove perez today. Ordered labs. 10/12/17: POD#5. Stable. Started TPN yesterday. KUB with gas throughout colon , I suspect we'll start seeing gas in stoma bag in next day or two. Still some dilated small bowel but colon looks better on KUB. Perez out, patient seems to be urinating without problems. CCM until bowel function returns. 10/13/17: POD#6. Doing well but still no evidence of bowel function. Continue bowel rest and TPN. Await return of bowel function. COntinue lovenox and PPI. CCM. 10/14/17: POD#7. Doing well. DAQUAN removed yesterday. KUB continues to improve with gas to distal colon but still no activity from stoma yet. Continue bowel rest and TPN while we await return of bowel function. Continue lovenox and PPI. 10/15/17: POD#8. Doing well but now with mild fevers and intermittent tachycardia. He has no pain and his abdominal exam is benign. Will get CXR and check UA. He's not on abx other than diflucan at this point. Continue bowel rest and TPN until bowel function returns. Continue lovenox, PPI. Hopeful for return of bowel function soon. 10/16/17: POD#9. Appears to be at his baseline. Ambulated with PT yesterday> 100 feet. Urinary incomplete emptying- started on Flomax 10/15. Stoma was irrigated with Fleets Enema by Dr Claudio 10/15 with nothing more out than enema fluid. He has no pain and his abdominal exam is benign. 10/15/17 with T max 100.4- CXR was clear and UA was clear--both improved today. Off abx but remains on Diflucan for ronda appearance of the stoma noted earlier in hospitalization. Will do a trial of Erythromycin for potential bowel dysmotility (secondary to bipolar meds?) Continue bowel rest and TPN until bowel function returns. Continue Lovenox, PPI. 10/17/17: POD#10. Appears to be at his baseline. Ambulated with PT yesterday> 100 feet x 2; stronger. Urinary incomplete emptying- started on Flomax 10/15 and bladder scan was minimal for retained fluid. Started on po erythromycin for dysmotility. Stoma with large gas and small liquid out. Started on clear liquids today. He has no pain and his abdominal exam is benign. Off abx and diflucan now while undergoing trial of Erythromycin. Continue TPN until full bowel function/appetite returns. Continue Lovenox, PPI. 10/17/17 (Addendum @ 1220): Intermittent tachycardia. Peristomal hernia noted upon standing by nursing staff. This has been noted previously. No gas output or liquid output since 0600 this AM. Abdomen remains benign to my exam. Discussed care plan with Dr Claudio and will try another enema today. Will continue erythromycin as a potential pro motility agent. 10/18/17: POD#11. Worsened from GI standpoint. Now with increased abdominal distension with N/V this morning. I stopped erythromycin and backed off on his diet. He had a fever this morning to 101F. Will obtain saucedo-cultures including cultures from his PICC line. Will get CXR, empirically start primaxin. May need to repeat abdominal CT. Will see how he does today and what cultures show , etc reveal. 10/19/17: POD#12. Doing better after Perez, NG tube placed and abx restarted. KUB c/w worsened ileus vs SBO. Fevers to over 101F yesterday, no fevers overnight, HR down this morning. Will repeat CT abd/pelvis today. Continue bowel rest, NG tube, TPN. No growth from cultures yet. 10/20/17: POD#13. Still without bowel function. CT c/w SBO with loop in pelvis and continued small bowel thickening in pelvis. Presacral fluid collection is small. Parastomal hernia but no obstruction. Pt's been afebrile now back on Primaxin. Continue bowel rest, NG tube decompression, TPN. No growth in cultures. Perez out last evening. Will see how he's able to void bladder. Will get SBFT with water-soluble contrast today. 10/21/17: POD#14. Possibly doing better? Having some stool output in bag. NG not putting out too much. Will start NG clamp trials. SBFT yesterday revealed no obstruction but c/w adynamic ileus. Now starting to see gastrograffin in stoma bag. Will try erythromycin as promotility agent. 10/22/17: POD#15. Now with stoma output after gastrograffin SBFT but still with dilated loops of small bowel on KUB. Continue NG clamp trials today and follow KUB. Started erythromycin yesterday, will see how effective this is. Continue bowel rest, TPN, etc until GI function clearly returning to normal. (2) Pneumonia Status: Resolved Assessment & Plan: Now Off Antibiotics; Being treated with albuterol for expiratory wheezing (3) Urinary retention with incomplete bladder emptying Status: Chronic Assessment & Plan: Started flomax, will follow response. (4) Bipolar disorder, unspecified Status: Chronic Assessment & Plan: On Home medications (5) ANEMIA IN OTHER CHRONIC DISEASES CLASSIFIED ELSEWHERE Status: Chronic Assessment & Plan: Anemia likely secondary to chronic disease; Monitor (6) Hyponatremia Status: Acute Assessment & Plan: 10/16/17: Appears to be euvolemic; Can adjust IV Fluids; Monitor 10/17/17: Sodium 132; on fluid restriction. IVF changed to NS from 2NS. Monitor (7) Hypoalbuminemia due to protein-calorie malnutrition Status: Acute Assessment & Plan: Albumin 2.0; On TPN; Remains NPO due to ileus or bowel dysmotility (8) Hypoxia Status: Acute Assessment & Plan: Remains on 2 liters Nasal Canula; Encourage ambulation/ assisted; Attempt O2 weaning (9) Peristomal hernia Status: Chronic Assessment & Plan: Present on admission exam and CT scan. Does not appear to be the source of his SBO. Easily reducible. Monitor during this acute process but may need repair remotely. Condition Stable. Time Spent: < 30 min Exam Sepsis Risk: No Definite Risk Problem Qualifiers (1) Pneumonia: Pneumonia type: due to unspecified organism Laterality: unspecified laterality Lung location: unspecified part of lung Qualified Codes: J18.9 - Pneumonia, unspecified organism ZACH CLAUDIO MD Oct 22, 2017 07:25
[2017-10-22] MEDS ORDERED: ALBUTEROL/IPRATROPIUM 3 ML NEB NEB PRN (07:55)
[2017-10-22 08:32] VITALS: BP 123/77
[2017-10-22] MEDS: ENOXAPARIN 40 MG/0.4ML SYR SC SCH (09:35)
[2017-10-22] MEDS: PANTOPRAZOLE SOD 40 MG IV VIAL IVP SCH (09:35)
[2017-10-22] MEDS: VALPROATE SOD IVPB SCH (09:55)
[2017-10-22] MEDS: [UNRECOGNIZED DRUG - OTHER] IV SCH ×2 (11:28→23:29)
--- NOTE | 2017-10-22 11:29 | Medical Nutrition Therapy ---
Nutrition Anthropometrics Height (Inches): 67.00 Height (Calculated Centimeters: 170.519824 Weight (Pounds): 147 Weight (Calculated Kilograms): 66.678 Sherman Nutrition Score: Adequate Sherman Nutrition Risk Score: 18 Dietary Referral Nutrition Risk Factors: Nutrition Risk Comment: Physical Findings Physical Appearance: WNR 22.3 Skin Appearance Skin Appearance: Edema Edema Location Modifier: Both Edema Location: Ankle Type of Edema: Degree of Edema: Gastrointestinal Symptoms GI Symtoms: Change in Bowel Pattern Tube Present: NG Bowel Sounds: Recent Bowel Pattern: Stool Characteristics: Brown, Soft Nutritional Diagnosis Nutritional Risk Acuity 1: TPN/PPN, GI Obstruction (SBO) Past Medical History: fecal incontinence, severe manic bipolar 1 disorder with psychotic behavior, psychogenic polydipsia, hyponatremia, OCD, rectal cancer, SBO, fatigue, weakness, hyperlipidemia, pneumonia, hx colon cancer, pevlic fluid collection Nutritional Acuity: 1-High Nutrition Diagnosis: Inadequate Food Intake Nutrition Etiology: Physiological Causes Nutrition Problem/Etiology/Sym: Inadequate oral intake related to physiological causes as evidence by nutrition support from TPN. Energy Requirement: 2515 ([place] X 1.3SF) Protein Requirement: 86 (1.3gm/kg) Fluid Requirement: 2000 (30ml/kg) Diet Type: NPO/Meds Only, TPN/PPN Nutrition Intervention: Nutrition support (TPN ) Nutritional Support Current Enteral / Parental: TPN Current Tube Feeding Formula C: 84 ml/hr + 250 ml lipid/12 hrs Tube Feeding Supplement Streng: Full Rate: 75 ml/hr plus lipids Current Duration: 24 Current Calories: 2040 Current Protein: 84 Current Lipids Calories: 275 Total Current Calories: 2315 Nutrition Monitoring & Eval Nutritional Goals Comment: TPN will meet nutr needs until pt can consume adequateoral intake to meet needs RD Patient Assessment Time: [address] Assessment Type: RD Re-Assessment Patient Nutrition Acuity: 1-High Follow Up Date: Oct 25, 2017 Nutritional Comment: 10/05 Pt admitted for SBO and pneumonia. Pt is experiencing N/V, fever and abdominal pain. Pt is on NPO diet with meds only. Pt has a hx of colon cancer. Pt had a colostomy placed (09/10). Pt mother states the his bowel movements have in his bag have been more bulky. She states that he eats reasonably well. However, in doctor's note he had stated if pt does not eat within the next 5-6 days a PICC line and TPN would be placed. Mother agreed to this plan. Pt WBC was elevated and has reach WNR. Pt is on antibiotics for pneumonia. Pt has pelvic fluid collection and at risk for sepsis. Pt has low Na (130) and low H/H. Continue to monitor pt progress, labs and diet advancement. -MT 10/07 Pt continues on NPO diet, he is now on day three. Pt states that he wants water. Pt still has evidence of SBO and fluid collection. In the doctor's note it states pt is getting to the point where we will need to consider PICC line and starting TPN. Pt may benefit from 1800 ml TPN at 75ml/hr providing 1836 kcal ad 76g protein. This will meet 94% of the pt energy needs and 97% protein. Pt has low alb (2.3), no other concern labs at this time. Will continue to monitor pt progress and TPN order. -MT 10/08 Pt 4th day NPO. Per Dr notes, pt will start TPN today. Alb has declined to 2. Recommend final TPN rate of 75 ml/hr plus lipids to meet 109% est kcal and 97% est protein needs. 10/10 Low H/H, Alb 2.0, Low Ca+. TPN delayed until Wednesday (10/11), bowel sounds now present. Follow clinical progression. -DRT 10/12 Continues to have low H/H, low WBC, Na (127), alb (2.1) and elevated K+ (6.9). Pt started TPN (10/11). NG tube and perez removed. Pt did swallowing eval. No concern at this time. Will continue to monitor pt progress and diet advancement. -MT 10/15 No complaints. Pt has mild fever. Pt is still weak and experiencing tremors in both LE. DAQUAN removed yesterday (10/14). Colostomy bag continues to have gas in it, however no BM. Per doctor note continue bowel rest and TPN while we await return of bowel function. Pt urinary retention and pneumonia have been resolved. Pt Na is low (133). Pt is receiving IV Na PRN. Will continue to monitor pt progress, labs and encourage intake.-MT 10/18 Pt continues on TPN until bowel function returns to normal. Per doctor note, will do a trial of Erythromycin for potential bowel dysmotility. Did two enemas, got some liquids in colostomy bag. However doctors note states GI has gotten worse. Pt is distended with N/V. Pt had a fever yesterday (101) with elevated WAC (11.1) and blood glucose ( 128). Pt has had a 5# wt loss since 10/12 (146#) to now (141). Will continue to monitor pt progress, labs and diet advancement. -MT 10/20 Wt is down 10# since admission. Alb 2.5 is improving. Pt cont on TPN. Reassessed nutritional needs with est higher kcal and protein needs. Recommend increase TPN to 2000 ml/24 hr plus 250ml lipids 12 hrs to meet 95% est kcal and 98% est protein needs. Cont to monitor. ETHAN 10/23 Pt cont on TPN with hypoactivbe bowel sounds. TPN was increased to 2000ml/24 hr to meet 95% est kcal and 98% est protein needs. Alb at 2.3 slowly increaseing . Wt is up 2#. Will cont to monitor. JOE PADILLA Oct 22, 2017 11:29
[2017-10-22 15:42] VITALS: BP 43/72
[2017-10-22] MEDS: FAT EMULSION 20% 250 ML BAG 250 ML IVPB SCH (17:59)
[2017-10-22 19:21] VITALS: BP 95/75
[2017-10-22] MEDS: TAMSULOSIN HCL 0.4 MG CAP PO SCH (20:14)
[2017-10-22] MEDS: OLANZapine ZYDIS ODT 5MG TABDP PO SCH (20:15)
[2017-10-22] MEDS: VALPROATE SOD 100 MG/ML VIAL 1,000 MG in NS(*) 0.9% 100 ML BAG 100 ML IVPB SCH (21:32)
[2017-10-23 00:48] VITALS: BP 112/69
[2017-10-23] MEDS: [UNRECOGNIZED DRUG - OTHER] IVPB SCH ×3 (02:21→21:11)
[2017-10-23] MEDS: NS 0.9% IVPB SCH ×4 (02:21→21:11)
[2017-10-23] MEDS: KETOROLAC 30 MG/ML VIAL IVP PRN ×4 (02:30→23:55)
[2017-10-23] MEDS: HYDROmorphone HCL 2 MG/ML SDV IVP PRN ×6 (02:31→21:10)
[2017-10-23] MEDS: ACETAMINOPHEN(*)1000 MG/100 ML 100 ML IVPB PRN ×3 (04:52→17:17)
[2017-10-23] MEDS: IMIPENEM/CILASTA(*) 500MG VIAL 500 MG in NS(*) 0.9% 100 ML BAG 100 ML IVPB SCH ×3 (05:33→17:35)
--- NOTE | 2017-10-23 06:34 | RADIOLOGY IMAGING REPORT ---
FAC[place] [facility] [place] NAME: Matthew Roth : 1960 MR: [id number] V: [id number] EXAM DATE: ORDERING PHYSICIAN: ZACH CLAUDIO TECHNOLOGIST: Location: [facility] - [place] Patient: Matthew Roth : 1960 Visit/Account:[id number] Date of Sevice: 10/23/2017 KUB SINGLE VIEW ABDOMEN HISTORY: ileus Additional history: None COMPARISON: Comparison radiographs 10/22/[address] scan 10/19/2017. FINDINGS: Again seen is enteric contrast in the colon to near the level of the left lower quadrant colostomy. H owever, there are persistent gas-filled distended small bowel loops measuring up to 4 cm diameter whi ch is also noted on the previous studies. IMPRESSION: Persistent ileus versus partial or intermittent small bowel obstruction. Appearance unchanged Report Dictated By: Ameya Kevin MD at 10/23/2017 6:29 AM Report E-Signed By: Ameya Kevin MD at 10/23/2017 6:32 AM WSN:[id number]
[2017-10-23 06:53] LABS: PLATELET COUNT, AUTOMATED 474 K/uL (150-450)
[2017-10-23 08:00] VITALS: BP 117/68
[2017-10-23 08:03] LABS: PLATELET COUNT, AUTOMATED 607 K/uL (150-450)
[2017-10-23] MEDS: ENOXAPARIN 40 MG/0.4ML SYR SC SCH (08:16)
[2017-10-23] MEDS: PANTOPRAZOLE SOD 40 MG IV VIAL IVP SCH (08:16)
[2017-10-23] MEDS ORDERED: [UNRECOGNIZED DRUG - OTHER] IVPB SCH (08:30)
[2017-10-23] MEDS ORDERED: NS 0.9% IVPB SCH (08:30)
--- NOTE | 2017-10-23 08:52 | General Surgery Progress Note ---
Subjective Progress Notes Subjective No complaints. No pain currently. Physical Exam Vital Signs Date Time Temp Pulse Resp B/P (MAP) Pulse Ox O2 Delivery O2 Flow Rate FiO2 10/23/17 08:02 96 Nasal Cannula 4.0 10/23/17 08:00 97.7 82 18 117/68 (84) General Appearance: Alert, Awake, No Acute Distress, Afebrile GI: Soft and Non-Tender (Stoma is pink and functional, liquid stool in bag, no gas) Extremities: Warm, Perfused Result Diagram: 10/23/17 0748 10/23/17 0748 Assessment and Plan Problems: (1) Small bowel obstruction due to postoperative adhesions Status: Acute Assessment & Plan: 10/04/17: Admit, nothing by mouth, IV fluids, bowel rest, conservative management start with. We'll follow his x-rays and NG tube output as well as stoma output. We will hold off on any sort of surgery until he is about 6 weeks out from his initial resection surgery. Hopefully he will respond to conservative management. His last meal was yesterday and his mother reports that he has been eating reasonably well. If he is unable to eat and about 5 or 6 days then we will need to consider a PICC line and starting TPN. I have explained this plan to the patient's mother and she seems to understand and seems to be agreeable with this plan. 10/05/17: Continued small bowel obstruction clinically and radiographically based on his KUB this morning. Will continue conservative management with NG tube decompression, bowel rest, and IV fluids. Continue IV antibiotics for pneumonia. If he fails to get better in the next several days may consider diagnostic laparoscopy with drainage of the pelvic fluid collection and inspection of his small bowel. We'll let his small bowel decompress further before contemplating this. 10/06/17: Will give po gastrograffin and will get CT this afternoon. KUB a little better but not much function from stoma. May need to consider exploratory laparoscopy tomorrow if not getting better. Stoma with white patches and area of necrosis on inferior portion only. Possibly the stoma appliance was cut too tight and pressing on the stoma, will need to follow this. Will add antifungal coverage in case white patches represent fungal infection of stoma although I don't recall every having seen this. Pt still with intermittent low grade fevers on broad spectrum antibiotic coverage so antifungal coverage will broaden that coverage as well. O/W, CCM. 10/07/17: Not much change. No stoma output. KUB has not yet been done this morning. Labs OK. Still with low grade fevers. WBC normal, neutrophil count coming down. CT abd/pelvis yesterday with decreased small bowel distension but still with evidence of SBO, fluid collection in unchanged, no free fluid or air. 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 Will await KUB. Getting to the point where we will need to consider PICC line and starting TPN. May discuss laparoscopic exploration later today; will discuss with patient's mother. 10/08/17: 4 weeks s/p robotic LAR, POD#1 s/p ex-laparoscopy with RILEY and drainage of presacral fluid. Doing well. WBC normal. Will follow fevers/ vitals, etc. Place PICC today to start TPN. Await return of bowel function. 10/09/17: POD2 ex laparoscopy. Awaiting return of bowel function. +BS and minimal NGT output so may be soon. Plan to start TPN on Wednesday. Patient needs to ambulate. Continue abx for pneumonia. Will try to remove perez catheter tomorrow. 10/10/17: POD3 ex laparoscopy. Still awaiting return of bowel function. Clamp NGT till noon and remove if low residuals and in good position on KUB. continue abx, continue perez. dropped MIVF to 75cc/hr. Patient is not participating with therapy. Good bowel sounds so started bowel reg today, senna s/miralax. 10/11/17: POD4 ex laparoscopy. Awaiting bowel function. NGT removed yesterday. Plan PICC/TPN today. Will need swallow eval before taking orals, could not tolerate bowel reg yesterday. May attempt to remove perez today. Ordered labs. 10/12/17: POD#5. Stable. Started TPN yesterday. KUB with gas throughout colon , I suspect we'll start seeing gas in stoma bag in next day or two. Still some dilated small bowel but colon looks better on KUB. Perez out, patient seems to be urinating without problems. CCM until bowel function returns. 10/13/17: POD#6. Doing well but still no evidence of bowel function. Continue bowel rest and TPN. Await return of bowel function. COntinue lovenox and PPI. CCM. 10/14/17: POD#7. Doing well. DAQUAN removed yesterday. KUB continues to improve with gas to distal colon but still no activity from stoma yet. Continue bowel rest and TPN while we await return of bowel function. Continue lovenox and PPI. 10/15/17: POD#8. Doing well but now with mild fevers and intermittent tachycardia. He has no pain and his abdominal exam is benign. Will get CXR and check UA. He's not on abx other than diflucan at this point. Continue bowel rest and TPN until bowel function returns. Continue lovenox, PPI. Hopeful for return of bowel function soon. 10/16/17: POD#9. Appears to be at his baseline. Ambulated with PT yesterday> 100 feet. Urinary incomplete emptying- started on Flomax 10/15. Stoma was irrigated with Fleets Enema by Dr Claudio 10/15 with nothing more out than enema fluid. He has no pain and his abdominal exam is benign. 10/15/17 with T max 100.4- CXR was clear and UA was clear--both improved today. Off abx but remains on Diflucan for ronda appearance of the stoma noted earlier in hospitalization. Will do a trial of Erythromycin for potential bowel dysmotility (secondary to bipolar meds?) Continue bowel rest and TPN until bowel function returns. Continue Lovenox, PPI. 10/17/17: POD#10. Appears to be at his baseline. Ambulated with PT yesterday> 100 feet x 2; stronger. Urinary incomplete emptying- started on Flomax 10/15 and bladder scan was minimal for retained fluid. Started on po erythromycin for dysmotility. Stoma with large gas and small liquid out. Started on clear liquids today. He has no pain and his abdominal exam is benign. Off abx and diflucan now while undergoing trial of Erythromycin. Continue TPN until full bowel function/appetite returns. Continue Lovenox, PPI. 10/17/17 (Addendum @ 1220): Intermittent tachycardia. Peristomal hernia noted upon standing by nursing staff. This has been noted previously. No gas output or liquid output since 0600 this AM. Abdomen remains benign to my exam. Discussed care plan with Dr Claudio and will try another enema today. Will continue erythromycin as a potential pro motility agent. 10/18/17: POD#11. Worsened from GI standpoint. Now with increased abdominal distension with N/V this morning. I stopped erythromycin and backed off on his diet. He had a fever this morning to 101F. Will obtain saucedo-cultures including cultures from his PICC line. Will get CXR, empirically start primaxin. May need to repeat abdominal CT. Will see how he does today and what cultures show , etc reveal. 10/19/17: POD#12. Doing better after Perez, NG tube placed and abx restarted. KUB c/w worsened ileus vs SBO. Fevers to over 101F yesterday, no fevers overnight, HR down this morning. Will repeat CT abd/pelvis today. Continue bowel rest, NG tube, TPN. No growth from cultures yet. 10/20/17: POD#13. Still without bowel function. CT c/w SBO with loop in pelvis and continued small bowel thickening in pelvis. Presacral fluid collection is small. Parastomal hernia but no obstruction. Pt's been afebrile now back on Primaxin. Continue bowel rest, NG tube decompression, TPN. No growth in cultures. Perez out last evening. Will see how he's able to void bladder. Will get SBFT with water-soluble contrast today. 10/21/17: POD#14. Possibly doing better? Having some stool output in bag. NG not putting out too much. Will start NG clamp trials. SBFT yesterday revealed no obstruction but c/w adynamic ileus. Now starting to see gastrograffin in stoma bag. Will try erythromycin as promotility agent. 10/22/17: POD#15. Now with stoma output after gastrograffin SBFT but still with dilated loops of small bowel on KUB. Continue NG clamp trials today and follow KUB. Started erythromycin yesterday, will see how effective this is. Continue bowel rest, TPN, etc until GI function clearly returning to normal. 10/23/17: POD#16. Doing well but KUB still with unchanging dilated loops of small bowel. NG not putting much out and pt tolerating clamp trials so will d/ c NG but will continue bowel rest and TPN. Continue erythromycin. (2) Pneumonia Status: Resolved Assessment & Plan: Now Off Antibiotics; Being treated with albuterol for expiratory wheezing (3) Urinary retention with incomplete bladder emptying Status: Chronic Assessment & Plan: Started flomax, will follow response. (4) Bipolar disorder, unspecified Status: Chronic Assessment & Plan: On Home medications (5) ANEMIA IN OTHER CHRONIC DISEASES CLASSIFIED ELSEWHERE Status: Chronic Assessment & Plan: Anemia likely secondary to chronic disease; Monitor (6) Hyponatremia Status: Chronic Assessment & Plan: 10/16/17: Appears to be euvolemic; Can adjust IV Fluids; Monitor 10/17/17: Sodium 132; on fluid restriction. IVF changed to NS from 2NS. Monitor (7) Hypoalbuminemia due to protein-calorie malnutrition Status: Chronic Assessment & Plan: Albumin 2.0; On TPN; Remains NPO due to ileus or bowel dysmotility (8) Hypoxia Status: Resolved Assessment & Plan: Remains on 2 liters Nasal Canula; Encourage ambulation/ assisted; Attempt O2 weaning (9) Peristomal hernia Status: Chronic Assessment & Plan: Present on admission exam and CT scan. Does not appear to be the source of his SBO. Easily reducible. Monitor during this acute process but may need repair remotely. Condition Stable. Time Spent: < 30 min Exam Sepsis Risk: No Definite Risk Problem Qualifiers (1) Pneumonia: Pneumonia type: due to unspecified organism Laterality: unspecified laterality Lung location: unspecified part of lung Qualified Codes: J18.9 - Pneumonia, unspecified organism ZACH CLAUDIO MD Oct 23, 2017 08:52
[2017-10-23] MEDS: VALPROATE SOD IVPB SCH (09:48)
[2017-10-23] MEDS: [UNRECOGNIZED DRUG - OTHER] IV SCH (11:12)
[2017-10-23 11:21] VITALS: BP_SYST 130; BP_DIAS 2; BP_DIAS 72
[2017-10-23] MEDS: ONDANSETRON 4 MG/2 ML VIAL IVP PRN (13:46)
[2017-10-23 15:00] VITALS: BP 127/73
[2017-10-23] MEDS: FAT EMULSION 20% 250 ML BAG 250 ML IVPB SCH (17:53)
[2017-10-23 19:50] VITALS: BP 122/40
[2017-10-23] MEDS: OLANZapine ZYDIS ODT 5MG TABDP PO SCH (21:11)
[2017-10-23] MEDS: VALPROATE SOD 100 MG/ML VIAL 1,000 MG in NS(*) 0.9% 100 ML BAG 100 ML IVPB SCH (21:12)
[2017-10-23] MEDS: TAMSULOSIN HCL 0.4 MG CAP PO SCH (21:19)
[2017-10-23 22:39] VITALS: BP 115/72
[2017-10-24] MEDS: [UNRECOGNIZED DRUG - OTHER] IV SCH (00:25)
[2017-10-24 02:29] VITALS: BP 122/78
[2017-10-24] MEDS: HYDROmorphone HCL 2 MG/ML SDV IVP PRN ×4 (02:39→16:07)
[2017-10-24] MEDS: NS 0.9% IVPB SCH ×5 (03:21→19:52)
[2017-10-24] MEDS: [UNRECOGNIZED DRUG - OTHER] IVPB SCH ×4 (03:21→19:52)
[2017-10-24] MEDS: KCL/DNS 20 MEQ/1000 ML PREMIX 1,000 ML IV PRN (03:21)
[2017-10-24] MEDS: IMIPENEM/CILASTA(*) 500MG VIAL 500 MG in NS(*) 0.9% 100 ML BAG 100 ML IVPB SCH ×5 (05:27→23:17)
[2017-10-24] MEDS ORDERED: NS 0.9% IVPB SCH (06:00)
[2017-10-24] MEDS ORDERED: [UNRECOGNIZED DRUG - OTHER] IVPB SCH (06:00)
[2017-10-24 06:01] LABS: PLATELET COUNT, AUTOMATED 671 K/uL (150-450)
[2017-10-24] MEDS: KETOROLAC 30 MG/ML VIAL IVP PRN ×3 (07:26→19:52)
--- NOTE | 2017-10-24 08:07 | General Surgery Progress Note ---
Subjective Progress Notes Subjective No complaints. No pain. Physical Exam Vital Signs Date Time Temp Pulse Resp B/P (MAP) Pulse Ox O2 Delivery O2 Flow Rate FiO2 10/24/17 02:29 98.4 94 16 122/78 (93) 98 10/23/17 22:39 Nasal Cannula 4.0 General Appearance: Alert, Awake, No Acute Distress, Afebrile GI: Soft and Non-Tender (Stoma is pink, liquid stool in bag, no air in bag.) Extremities: Warm, Perfused Result Diagram: 10/24/17 0548 10/24/17 0548 Assessment and Plan Problems: (1) Small bowel obstruction due to postoperative adhesions Status: Acute Assessment & Plan: 10/04/17: Admit, nothing by mouth, IV fluids, bowel rest, conservative management start with. We'll follow his x-rays and NG tube output as well as stoma output. We will hold off on any sort of surgery until he is about 6 weeks out from his initial resection surgery. Hopefully he will respond to conservative management. His last meal was yesterday and his mother reports that he has been eating reasonably well. If he is unable to eat and about 5 or 6 days then we will need to consider a PICC line and starting TPN. I have explained this plan to the patient's mother and she seems to understand and seems to be agreeable with this plan. 10/05/17: Continued small bowel obstruction clinically and radiographically based on his KUB this morning. Will continue conservative management with NG tube decompression, bowel rest, and IV fluids. Continue IV antibiotics for pneumonia. If he fails to get better in the next several days may consider diagnostic laparoscopy with drainage of the pelvic fluid collection and inspection of his small bowel. We'll let his small bowel decompress further before contemplating this. 10/06/17: Will give po gastrograffin and will get CT this afternoon. KUB a little better but not much function from stoma. May need to consider exploratory laparoscopy tomorrow if not getting better. Stoma with white patches and area of necrosis on inferior portion only. Possibly the stoma appliance was cut too tight and pressing on the stoma, will need to follow this. Will add antifungal coverage in case white patches represent fungal infection of stoma although I don't recall every having seen this. Pt still with intermittent low grade fevers on broad spectrum antibiotic coverage so antifungal coverage will broaden that coverage as well. O/W, CCM. 10/07/17: Not much change. No stoma output. KUB has not yet been done this morning. Labs OK. Still with low grade fevers. WBC normal, neutrophil count coming down. CT abd/pelvis yesterday with decreased small bowel distension but still with evidence of SBO, fluid collection in unchanged, no free fluid or air. 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 Will await KUB. Getting to the point where we will need to consider PICC line and starting TPN. May discuss laparoscopic exploration later today; will discuss with patient's mother. 10/08/17: 4 weeks s/p robotic LAR, POD#1 s/p ex-laparoscopy with RILEY and drainage of presacral fluid. Doing well. WBC normal. Will follow fevers/ vitals, etc. Place PICC today to start TPN. Await return of bowel function. 10/09/17: POD2 ex laparoscopy. Awaiting return of bowel function. +BS and minimal NGT output so may be soon. Plan to start TPN on Wednesday. Patient needs to ambulate. Continue abx for pneumonia. Will try to remove perez catheter tomorrow. 10/10/17: POD3 ex laparoscopy. Still awaiting return of bowel function. Clamp NGT till noon and remove if low residuals and in good position on KUB. continue abx, continue perez. dropped MIVF to 75cc/hr. Patient is not participating with therapy. Good bowel sounds so started bowel reg today, senna s/miralax. 10/11/17: POD4 ex laparoscopy. Awaiting bowel function. NGT removed yesterday. Plan PICC/TPN today. Will need swallow eval before taking orals, could not tolerate bowel reg yesterday. May attempt to remove perez today. Ordered labs. 10/12/17: POD#5. Stable. Started TPN yesterday. KUB with gas throughout colon , I suspect we'll start seeing gas in stoma bag in next day or two. Still some dilated small bowel but colon looks better on KUB. Perez out, patient seems to be urinating without problems. CCM until bowel function returns. 10/13/17: POD#6. Doing well but still no evidence of bowel function. Continue bowel rest and TPN. Await return of bowel function. COntinue lovenox and PPI. CCM. 10/14/17: POD#7. Doing well. DAQUAN removed yesterday. KUB continues to improve with gas to distal colon but still no activity from stoma yet. Continue bowel rest and TPN while we await return of bowel function. Continue lovenox and PPI. 10/15/17: POD#8. Doing well but now with mild fevers and intermittent tachycardia. He has no pain and his abdominal exam is benign. Will get CXR and check UA. He's not on abx other than diflucan at this point. Continue bowel rest and TPN until bowel function returns. Continue lovenox, PPI. Hopeful for return of bowel function soon. 10/16/17: POD#9. Appears to be at his baseline. Ambulated with PT yesterday> 100 feet. Urinary incomplete emptying- started on Flomax 10/15. Stoma was irrigated with Fleets Enema by Dr Claudio 10/15 with nothing more out than enema fluid. He has no pain and his abdominal exam is benign. 10/15/17 with T max 100.4- CXR was clear and UA was clear--both improved today. Off abx but remains on Diflucan for ronda appearance of the stoma noted earlier in hospitalization. Will do a trial of Erythromycin for potential bowel dysmotility (secondary to bipolar meds?) Continue bowel rest and TPN until bowel function returns. Continue Lovenox, PPI. 10/17/17: POD#10. Appears to be at his baseline. Ambulated with PT yesterday> 100 feet x 2; stronger. Urinary incomplete emptying- started on Flomax 10/15 and bladder scan was minimal for retained fluid. Started on po erythromycin for dysmotility. Stoma with large gas and small liquid out. Started on clear liquids today. He has no pain and his abdominal exam is benign. Off abx and diflucan now while undergoing trial of Erythromycin. Continue TPN until full bowel function/appetite returns. Continue Lovenox, PPI. 10/17/17 (Addendum @ 1220): Intermittent tachycardia. Peristomal hernia noted upon standing by nursing staff. This has been noted previously. No gas output or liquid output since 0600 this AM. Abdomen remains benign to my exam. Discussed care plan with Dr Claudio and will try another enema today. Will continue erythromycin as a potential pro motility agent. 10/18/17: POD#11. Worsened from GI standpoint. Now with increased abdominal distension with N/V this morning. I stopped erythromycin and backed off on his diet. He had a fever this morning to 101F. Will obtain saucedo-cultures including cultures from his PICC line. Will get CXR, empirically start primaxin. May need to repeat abdominal CT. Will see how he does today and what cultures show , etc reveal. 10/19/17: POD#12. Doing better after Perez, NG tube placed and abx restarted. KUB c/w worsened ileus vs SBO. Fevers to over 101F yesterday, no fevers overnight, HR down this morning. Will repeat CT abd/pelvis today. Continue bowel rest, NG tube, TPN. No growth from cultures yet. 10/20/17: POD#13. Still without bowel function. CT c/w SBO with loop in pelvis and continued small bowel thickening in pelvis. Presacral fluid collection is small. Parastomal hernia but no obstruction. Pt's been afebrile now back on Primaxin. Continue bowel rest, NG tube decompression, TPN. No growth in cultures. Perez out last evening. Will see how he's able to void bladder. Will get SBFT with water-soluble contrast today. 10/21/17: POD#14. Possibly doing better? Having some stool output in bag. NG not putting out too much. Will start NG clamp trials. SBFT yesterday revealed no obstruction but c/w adynamic ileus. Now starting to see gastrograffin in stoma bag. Will try erythromycin as promotility agent. 10/22/17: POD#15. Now with stoma output after gastrograffin SBFT but still with dilated loops of small bowel on KUB. Continue NG clamp trials today and follow KUB. Started erythromycin yesterday, will see how effective this is. Continue bowel rest, TPN, etc until GI function clearly returning to normal. 10/23/17: POD#16. Doing well but KUB still with unchanging dilated loops of small bowel. NG not putting much out and pt tolerating clamp trials so will d/ c NG but will continue bowel rest and TPN. Continue erythromycin. 10/24/17: POD#17. Doing well. NG removed yesterday. Pt doing well. Still with ileus as no gas in bag. Will recheck KUB tomorrow morning. Continue bowel rest. May need to discuss Kg with psychiatry to discuss his medication' s role in prolonged ileus. Continue TPN. (2) Pneumonia Status: Resolved Assessment & Plan: Now Off Antibiotics; Being treated with albuterol for expiratory wheezing (3) Urinary retention with incomplete bladder emptying Status: Chronic Assessment & Plan: Started flomax, will follow response. (4) Bipolar disorder, unspecified Status: Chronic Assessment & Plan: On Home medications (5) ANEMIA IN OTHER CHRONIC DISEASES CLASSIFIED ELSEWHERE Status: Chronic Assessment & Plan: Anemia likely secondary to chronic disease; Monitor (6) Hyponatremia Status: Chronic Assessment & Plan: 10/16/17: Appears to be euvolemic; Can adjust IV Fluids; Monitor 10/17/17: Sodium 132; on fluid restriction. IVF changed to NS from 2NS. Monitor (7) Hypoalbuminemia due to protein-calorie malnutrition Status: Chronic Assessment & Plan: Albumin 2.0; On TPN; Remains NPO due to ileus or bowel dysmotility (8) Hypoxia Status: Resolved Assessment & Plan: Remains on 2 liters Nasal Canula; Encourage ambulation/ assisted; Attempt O2 weaning (9) Peristomal hernia Status: Chronic Assessment & Plan: Present on admission exam and CT scan. Does not appear to be the source of his SBO. Easily reducible. Monitor during this acute process but may need repair remotely. Condition Stable. Time Spent: < 30 min Exam Sepsis Risk: No Definite Risk Problem Qualifiers (1) Pneumonia: Pneumonia type: due to unspecified organism Laterality: unspecified laterality Lung location: unspecified part of lung Qualified Codes: J18.9 - Pneumonia, unspecified organism ZACH CLAUDIO MD Oct 24, 2017 08:07
[2017-10-24 08:10] VITALS: BP 120/75
[2017-10-24] MEDS: ENOXAPARIN 40 MG/0.4ML SYR SC SCH (09:49)
[2017-10-24] MEDS: NS(*) 0.9% 250 ML BAG 250 ML IVPB PRN (09:49)
[2017-10-24] MEDS: PANTOPRAZOLE SOD 40 MG IV VIAL IVP SCH (09:49)
[2017-10-24] MEDS: VALPROATE SOD IVPB SCH (09:50)
[2017-10-24 11:29] VITALS: BP 123/81
[2017-10-24 15:21] VITALS: BP 121/77
[2017-10-24] MEDS: ACETAMINOPHEN(*)1000 MG/100 ML 100 ML IVPB PRN (17:08)
[2017-10-24] MEDS: FAT EMULSION 20% 250 ML BAG 250 ML IVPB SCH (17:47)
[2017-10-24] MEDS: TAMSULOSIN HCL 0.4 MG CAP PO SCH (20:23)
[2017-10-24] MEDS: OLANZapine ZYDIS ODT 5MG TABDP PO SCH (20:24)
[2017-10-24] MEDS: VALPROATE SOD 100 MG/ML VIAL 1,000 MG in NS(*) 0.9% 100 ML BAG 100 ML IVPB SCH (21:09)
[2017-10-24 23:39] VITALS: BP 124/84
[2017-10-25] MEDS: [UNRECOGNIZED DRUG - OTHER] IV SCH ×2 (00:07→23:57)
[2017-10-25] MEDS: ACETAMINOPHEN(*)1000 MG/100 ML 100 ML IVPB PRN ×2 (01:36→17:04)
[2017-10-25 02:37] VITALS: BP 137/76
[2017-10-25] MEDS: KETOROLAC 30 MG/ML VIAL IVP PRN ×2 (02:41→15:09)
[2017-10-25] MEDS: IMIPENEM/CILASTA(*) 500MG VIAL 500 MG in NS(*) 0.9% 100 ML BAG 100 ML IVPB SCH ×2 (05:15→12:23)
--- NOTE | 2017-10-25 05:46 | RADIOLOGY IMAGING REPORT ---
[place] [facility] [place] NAME: Matthew Roth : 1960 MR: [id number] V: [id number] EXAM DATE: ORDERING PHYSICIAN: ZACH CLAUDIO TECHNOLOGIST: Location: [facility] - [place] Patient: Matthew Roth : 1960 Visit/Account:[id number] Date of Sevice: 10/25/2017 Abdomen: Indication: Ileus. Technique: A single supine view was obtained. Comparison: 10/23/2017 Findings: There is residual opaque contrast material in the colon, with progression to the level of t he ostomy site. The colon is not dilated. There is persistent small bowel dilatation, compatible with ileus. There has been slight improvement. The skeletal and soft tissue structures appear unchanged. Impression: Slight interval improvement. Report Dictated By: Shen Mar MD at 10/25/2017 5:38 AM Report E-Signed By: Shen Mar MD at 10/25/2017 5:43 AM WSN:[id number]
[2017-10-25 06:07] LABS: PLATELET COUNT, AUTOMATED 673 K/uL (150-450)
--- NOTE | 2017-10-25 08:02 | General Surgery Progress Note ---
Subjective Progress Notes Subjective No complaints this morning. Physical Exam Vital Signs Date Time Temp Pulse Resp B/P (MAP) Pulse Ox O2 Delivery O2 Flow Rate FiO2 10/25/17 02:37 98.2 22 137/76 (96) 90 Nasal Cannula 3.0 10/24/17 23:39 86 General Appearance: Alert, Awake, No Acute Distress, Afebrile GI: Soft and Non-Tender (Stoma is pink with gas and stool in bag) Result Diagram: 10/25/17 0514 10/25/1714 Assessment and Plan Problems: (1) Small bowel obstruction due to postoperative adhesions Status: Acute Assessment & Plan: 10/04/17: Admit, nothing by mouth, IV fluids, bowel rest, conservative management start with. We'll follow his x-rays and NG tube output as well as stoma output. We will hold off on any sort of surgery until he is about 6 weeks out from his initial resection surgery. Hopefully he will respond to conservative management. His last meal was yesterday and his mother reports that he has been eating reasonably well. If he is unable to eat and about 5 or 6 days then we will need to consider a PICC line and starting TPN. I have explained this plan to the patient's mother and she seems to understand and seems to be agreeable with this plan. 10/05/17: Continued small bowel obstruction clinically and radiographically based on his KUB this morning. Will continue conservative management with NG tube decompression, bowel rest, and IV fluids. Continue IV antibiotics for pneumonia. If he fails to get better in the next several days may consider diagnostic laparoscopy with drainage of the pelvic fluid collection and inspection of his small bowel. We'll let his small bowel decompress further before contemplating this. 10/06/17: Will give po gastrograffin and will get CT this afternoon. KUB a little better but not much function from stoma. May need to consider exploratory laparoscopy tomorrow if not getting better. Stoma with white patches and area of necrosis on inferior portion only. Possibly the stoma appliance was cut too tight and pressing on the stoma, will need to follow this. Will add antifungal coverage in case white patches represent fungal infection of stoma although I don't recall every having seen this. Pt still with intermittent low grade fevers on broad spectrum antibiotic coverage so antifungal coverage will broaden that coverage as well. O/W, CCM. 10/07/17: Not much change. No stoma output. KUB has not yet been done this morning. Labs OK. Still with low grade fevers. WBC normal, neutrophil count coming down. CT abd/pelvis yesterday with decreased small bowel distension but still with evidence of SBO, fluid collection in unchanged, no free fluid or air. 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 Will await KUB. Getting to the point where we will need to consider PICC line and starting TPN. May discuss laparoscopic exploration later today; will discuss with patient's mother. 10/08/17: 4 weeks s/p robotic LAR, POD#1 s/p ex-laparoscopy with RILEY and drainage of presacral fluid. Doing well. WBC normal. Will follow fevers/ vitals, etc. Place PICC today to start TPN. Await return of bowel function. 10/09/17: POD2 ex laparoscopy. Awaiting return of bowel function. +BS and minimal NGT output so may be soon. Plan to start TPN on Wednesday. Patient needs to ambulate. Continue abx for pneumonia. Will try to remove perez catheter tomorrow. 10/10/17: POD3 ex laparoscopy. Still awaiting return of bowel function. Clamp NGT till noon and remove if low residuals and in good position on KUB. continue abx, continue perez. dropped MIVF to 75cc/hr. Patient is not participating with therapy. Good bowel sounds so started bowel reg today, senna s/miralax. 10/11/17: POD4 ex laparoscopy. Awaiting bowel function. NGT removed yesterday. Plan PICC/TPN today. Will need swallow eval before taking orals, could not tolerate bowel reg yesterday. May attempt to remove perez today. Ordered labs. 10/12/17: POD#5. Stable. Started TPN yesterday. KUB with gas throughout colon , I suspect we'll start seeing gas in stoma bag in next day or two. Still some dilated small bowel but colon looks better on KUB. Perez out, patient seems to be urinating without problems. CCM until bowel function returns. 10/13/17: POD#6. Doing well but still no evidence of bowel function. Continue bowel rest and TPN. Await return of bowel function. COntinue lovenox and PPI. CCM. 10/14/17: POD#7. Doing well. DAQUAN removed yesterday. KUB continues to improve with gas to distal colon but still no activity from stoma yet. Continue bowel rest and TPN while we await return of bowel function. Continue lovenox and PPI. 10/15/17: POD#8. Doing well but now with mild fevers and intermittent tachycardia. He has no pain and his abdominal exam is benign. Will get CXR and check UA. He's not on abx other than diflucan at this point. Continue bowel rest and TPN until bowel function returns. Continue lovenox, PPI. Hopeful for return of bowel function soon. 10/16/17: POD#9. Appears to be at his baseline. Ambulated with PT yesterday> 100 feet. Urinary incomplete emptying- started on Flomax 10/15. Stoma was irrigated with Fleets Enema by Dr Claudio 10/15 with nothing more out than enema fluid. He has no pain and his abdominal exam is benign. 10/15/17 with T max 100.4- CXR was clear and UA was clear--both improved today. Off abx but remains on Diflucan for ronda appearance of the stoma noted earlier in hospitalization. Will do a trial of Erythromycin for potential bowel dysmotility (secondary to bipolar meds?) Continue bowel rest and TPN until bowel function returns. Continue Lovenox, PPI. 10/17/17: POD#10. Appears to be at his baseline. Ambulated with PT yesterday> 100 feet x 2; stronger. Urinary incomplete emptying- started on Flomax 10/15 and bladder scan was minimal for retained fluid. Started on po erythromycin for dysmotility. Stoma with large gas and small liquid out. Started on clear liquids today. He has no pain and his abdominal exam is benign. Off abx and diflucan now while undergoing trial of Erythromycin. Continue TPN until full bowel function/appetite returns. Continue Lovenox, PPI. 10/17/17 (Addendum @ 1220): Intermittent tachycardia. Peristomal hernia noted upon standing by nursing staff. This has been noted previously. No gas output or liquid output since 0600 this AM. Abdomen remains benign to my exam. Discussed care plan with Dr Claudio and will try another enema today. Will continue erythromycin as a potential pro motility agent. 10/18/17: POD#11. Worsened from GI standpoint. Now with increased abdominal distension with N/V this morning. I stopped erythromycin and backed off on his diet. He had a fever this morning to 101F. Will obtain saucedo-cultures including cultures from his PICC line. Will get CXR, empirically start primaxin. May need to repeat abdominal CT. Will see how he does today and what cultures show , etc reveal. 10/19/17: POD#12. Doing better after Perez, NG tube placed and abx restarted. KUB c/w worsened ileus vs SBO. Fevers to over 101F yesterday, no fevers overnight, HR down this morning. Will repeat CT abd/pelvis today. Continue bowel rest, NG tube, TPN. No growth from cultures yet. 10/20/17: POD#13. Still without bowel function. CT c/w SBO with loop in pelvis and continued small bowel thickening in pelvis. Presacral fluid collection is small. Parastomal hernia but no obstruction. Pt's been afebrile now back on Primaxin. Continue bowel rest, NG tube decompression, TPN. No growth in cultures. Perez out last evening. Will see how he's able to void bladder. Will get SBFT with water-soluble contrast today. 10/21/17: POD#14. Possibly doing better? Having some stool output in bag. NG not putting out too much. Will start NG clamp trials. SBFT yesterday revealed no obstruction but c/w adynamic ileus. Now starting to see gastrograffin in stoma bag. Will try erythromycin as promotility agent. 10/22/17: POD#15. Now with stoma output after gastrograffin SBFT but still with dilated loops of small bowel on KUB. Continue NG clamp trials today and follow KUB. Started erythromycin yesterday, will see how effective this is. Continue bowel rest, TPN, etc until GI function clearly returning to normal. 10/23/17: POD#16. Doing well but KUB still with unchanging dilated loops of small bowel. NG not putting much out and pt tolerating clamp trials so will d/ c NG but will continue bowel rest and TPN. Continue erythromycin. 18: POD#17. Doing well. NG removed yesterday. Pt doing well. Still with ileus as no gas in bag. Will recheck KUB tomorrow morning. Continue bowel rest. May need to discuss Kg with psychiatry to discuss his medication' s role in prolonged ileus. Continue TPN. 18: POD#18. Doing well. Now having some gas from stoma. KUB looks a little better this morning with decreased dilated loops of small bowel. Hospital is out of Erythromycin IV and it is on backorder. Will change to PO erythromycin for promotility effects. Will o/w continue bowel rest until more signs of bowel activity since the last time she showed signs of gas and stool from his stoma when he was advanced to clears he became severely distended and we needed to replace his NG tube and resume rx for ileus vs SBO. Continue TPN until tolerating regular diet. (2) Pneumonia Status: Resolved Assessment & Plan: Now Off Antibiotics; Being treated with albuterol for expiratory wheezing (3) Urinary retention with incomplete bladder emptying Status: Chronic Assessment & Plan: Started flomax, will follow response. (4) Bipolar disorder, unspecified Status: Chronic Assessment & Plan: On Home medications (5) ANEMIA IN OTHER CHRONIC DISEASES CLASSIFIED ELSEWHERE Status: Chronic Assessment & Plan: Anemia likely secondary to chronic disease; Monitor (6) Hyponatremia Status: Chronic Assessment & Plan: 10/16/17: Appears to be euvolemic; Can adjust IV Fluids; Monitor 10/17/17: Sodium 132; on fluid restriction. IVF changed to NS from 2NS. Monitor (7) Hypoalbuminemia due to protein-calorie malnutrition Status: Chronic Assessment & Plan: Albumin 2.0; On TPN; Remains NPO due to ileus or bowel dysmotility (8) Hypoxia Status: Resolved Assessment & Plan: Remains on 2 liters Nasal Canula; Encourage ambulation/ assisted; Attempt O2 weaning (9) Peristomal hernia Status: Chronic Assessment & Plan: Present on admission exam and CT scan. Does not appear to be the source of his SBO. Easily reducible. Monitor during this acute process but may need repair remotely. Condition Stable. Time Spent: < 30 min Exam Sepsis Risk: Sepsis Risk Problem Qualifiers (1) Pneumonia: Pneumonia type: due to unspecified organism Laterality: unspecified laterality Lung location: unspecified part of lung Qualified Codes: J18.9 - Pneumonia, unspecified organism ZACH CLAUDIO MD Oct 25, 2017 08:02
[2017-10-25] MEDS: VALPROATE SOD IVPB SCH (09:20)
[2017-10-25] MEDS: NS 0.9% IVPB SCH (09:20)
[2017-10-25] MEDS: ENOXAPARIN 40 MG/0.4ML SYR SC SCH (09:21)
[2017-10-25] MEDS: PANTOPRAZOLE SOD 40 MG IV VIAL IVP SCH (09:21)
[2017-10-25] MEDS: ERYTHROMYCIN 250 MG PO SCH ×3 (09:31→20:17)
[2017-10-25 11:10] VITALS: BP 125/76
--- NOTE | 2017-10-25 13:21 | Medical Nutrition Therapy ---
Nutrition Anthropometrics Height (Inches): 67.00 Height (Calculated Centimeters: 170.877985 Weight (Pounds): 144 Weight (Calculated Kilograms): 65.317 BMI: 22.5 Sherman Nutrition Score: Probably Inadequate Sherman Nutrition Risk Score: 18 Dietary Referral Nutrition Risk Factors: Nutrition Risk Comment: Nutritional Diagnosis Nutritional Risk Acuity 1: TPN/PPN, GI Obstruction (SBO) Past Medical History: fecal incontinence, severe manic bipolar 1 disorder with psychotic behavior, psychogenic polydipsia, hyponatremia, OCD, rectal cancer, SBO, fatigue, weakness, hyperlipidemia, pneumonia, hx colon cancer, pevlic fluid collection Nutritional Acuity: 1-High Nutrition Diagnosis: Inadequate Food Intake Nutrition Etiology: Physiological Causes Nutrition Problem/Etiology/Sym: Inadequate oral intake related to physiological causes as evidence by nutrition support from TPN. Energy Requirement: 2515 ([place] X 1.3SF) Protein Requirement: 86 (1.3gm/kg) Fluid Requirement: 2000 (30ml/kg) Diet Type: NPO/Meds Only, TPN/PPN Nutrition Intervention: Nutrition support (TPN ) Nutritional Support Current Enteral / Parental: TPN Current Tube Feeding Formula C: 84 ml/hr + 250 ml lipid/12 hrs Tube Feeding Supplement Streng: Full Rate: 75 ml/hr plus lipids Current Duration: 24 Current Calories: 2040 Current Protein: 84 Current Lipids Calories: 275 Total Current Calories: 2315 Nutrition Monitoring & Eval Nutritional Goals Comment: TPN will meet nutr needs until oral intake can meet needs. RD Patient Assessment Time: [address] Assessment Type: RD Re-Assessment Patient Nutrition Acuity: 1-High Follow Up Date: Oct 28, 2017 Nutritional Comment: 10/05 Pt admitted for SBO and pneumonia. Pt is experiencing N/V, fever and abdominal pain. Pt is on NPO diet with meds only. Pt has a hx of colon cancer. Pt had a colostomy placed (09/10). Pt mother states the his bowel movements have in his bag have been more bulky. She states that he eats reasonably well. However, in doctor's note he had stated if pt does not eat within the next 5-6 days a PICC line and TPN would be placed. Mother agreed to this plan. Pt WBC was elevated and has reach WNR. Pt is on antibiotics for pneumonia. Pt has pelvic fluid collection and at risk for sepsis. Pt has low Na (130) and low H/H. Continue to monitor pt progress, labs and diet advancement. -MT 10/07 Pt continues on NPO diet, he is now on day three. Pt states that he wants water. Pt still has evidence of SBO and fluid collection. In the doctor's note it states pt is getting to the point where we will need to consider PICC line and starting TPN. Pt may benefit from 1800 ml TPN at 75ml/hr providing 1836 kcal ad 76g protein. This will meet 94% of the pt energy needs and 97% protein. Pt has low alb (2.3), no other concern labs at this time. Will continue to monitor pt progress and TPN order. -MT 10/08 Pt 4th day NPO. Per Dr notes, pt will start TPN today. Alb has declined to 2. Recommend final TPN rate of 75 ml/hr plus lipids to meet 109% est kcal and 97% est protein needs. 10/10 Low H/H, Alb 2.0, Low Ca+. TPN delayed until Wednesday (10/11), bowel sounds now present. Follow clinical progression. -DRT 10/12 Continues to have low H/H, low WBC, Na (127), alb (2.1) and elevated K+ (6.9). Pt started TPN (10/11). NG tube and perez removed. Pt did swallowing eval. No concern at this time. Will continue to monitor pt progress and diet advancement. -MT 10/15 No complaints. Pt has mild fever. Pt is still weak and experiencing tremors in both LE. DAQUAN removed yesterday (10/14). Colostomy bag continues to have gas in it, however no BM. Per doctor note continue bowel rest and TPN while we await return of bowel function. Pt urinary retention and pneumonia have been resolved. Pt Na is low (133). Pt is receiving IV Na PRN. Will continue to monitor pt progress, labs and encourage intake.-MT 10/18 Pt continues on TPN until bowel function returns to normal. Per doctor note, will do a trial of Erythromycin for potential bowel dysmotility. Did two enemas, got some liquids in colostomy bag. However doctors note states GI has gotten worse. Pt is distended with N/V. Pt had a fever yesterday (101) with elevated WAC (11.1) and blood glucose ( 128). Pt has had a 5# wt loss since 10/12 (146#) to now (141). Will continue to monitor pt progress, labs and diet advancement. -MT 10/20 Wt is down 10# since admission. Alb 2.5 is improving. Pt cont on TPN. Reassessed nutritional needs with est higher kcal and protein needs. Recommend increase TPN to 2000 ml/24 hr plus 250ml lipids 12 hrs to meet 95% est kcal and 98% est protein needs. Cont to monitor. BK 10/23 Pt cont on TPN with hypoactivbe bowel sounds. TPN was increased to 2000ml/24 hr to meet 95% est kcal and 98% est protein needs. Alb at 2.3 slowly increaseing . Wt is up 2#. Will cont to monitor. BK 10/25 Pt cont on TPN with hypoactivbe bowel sounds and maryanne from stoma. TPN is meeting 95% est kcal and 98% est protein needs. Alb at 2.4 is slowly increaseing . Wt is within usual range. Will cont to monitor. JOE PADILLA Oct 25, 2017 13:21
[2017-10-25 15:44] VITALS: BP 149/103
[2017-10-25] MEDS: HYDROmorphone HCL 2 MG/ML SDV IVP PRN ×2 (16:03→23:47)
[2017-10-25] MEDS: FAT EMULSION 20% 250 ML BAG 250 ML IVPB SCH (18:32)
[2017-10-25 18:54] VITALS: BP 131/90
[2017-10-25] MEDS: OLANZapine ZYDIS ODT 5MG TABDP PO SCH (20:16)
[2017-10-25] MEDS: TAMSULOSIN HCL 0.4 MG CAP PO SCH (20:17)
[2017-10-25] MEDS: VALPROATE SOD 100 MG/ML VIAL 1,000 MG in NS(*) 0.9% 100 ML BAG 100 ML IVPB SCH (20:25)
[2017-10-25] MEDS: NS(*) 0.9% 250 ML BAG 250 ML IVPB PRN (22:05)
[2017-10-25] MEDS: KCL/DNS 20 MEQ/1000 ML PREMIX 1,000 ML IV PRN (22:06)
[2017-10-25 23:35] VITALS: BP 132/65
[2017-10-26 06:05] VITALS: BP 140/72
[2017-10-26] MEDS: HYDROmorphone HCL 2 MG/ML SDV IVP PRN ×5 (06:18→23:24)
[2017-10-26 06:32] LABS: PLATELET COUNT, AUTOMATED 681 K/uL (150-450)
--- NOTE | 2017-10-26 08:22 | RADIOLOGY IMAGING REPORT ---
FACILITY: [facility] PATIENT NAME: Matthew Roth : 1960 MR: [id number] V: [id number] EXAM DATE: ORDERING PHYSICIAN: ZACH CLAUDIO TECHNOLOGIST: Location: [facility] Patient: Matthew Roth : 1960 Visit/Account:[id number] Date of Sevice: 10/26/2017 Exam type: KUB SINGLE VIEW ABDOMEN History: ileus Comparison: October 25, 2017. Findings: Residual opaque contrast remains in the colon which is nondilated. Ostomy in left lower quadrant aga in seen. Persistent small bowel dilatation appears similar to yesterday's study consistent with hist ory of ileus. Callus occasions project over the prostate IMPRESSION: 1. Colon remains nondilated with some residual opaque contrast Mild small bowel distention appears relatively unchanged when compared to yesterday's study consisten t with history of ileus Report Dictated By: Keena Herrera MD at 10/26/2017 8:14 AM Report E-Signed By: Keena Herrera MD at 10/26/2017 8:18 AM WSN:[email or web address]
[2017-10-26] MEDS: ERYTHROMYCIN 250 MG PO SCH ×3 (09:42→20:21)
[2017-10-26] MEDS: ENOXAPARIN 40 MG/0.4ML SYR SC SCH (09:42)
[2017-10-26] MEDS: VALPROATE SOD IVPB SCH (09:42)
[2017-10-26] MEDS: NS 0.9% IVPB SCH (09:42)
[2017-10-26] MEDS: PANTOPRAZOLE SOD 40 MG IV VIAL IVP SCH (09:42)
[2017-10-26 09:54] VITALS: BP 125/75
[2017-10-26 11:01] VITALS: BP 115/85
[2017-10-26 14:28] VITALS: BP 108/77
[2017-10-26] MEDS: FAT EMULSION 20% 250 ML BAG 250 ML IVPB SCH (18:30)
[2017-10-26 19:20] VITALS: BP 141/66
[2017-10-26] MEDS: TAMSULOSIN HCL 0.4 MG CAP PO SCH (20:09)
[2017-10-26] MEDS: OLANZapine ZYDIS ODT 5MG TABDP PO SCH (20:20)
[2017-10-26] MEDS: VALPROATE SOD 100 MG/ML VIAL 1,000 MG in NS(*) 0.9% 100 ML BAG 100 ML IVPB SCH (20:21)
[2017-10-26 23:15] VITALS: BP 137/76
[2017-10-27] MEDS: [UNRECOGNIZED DRUG - OTHER] IV SCH (00:36)
[2017-10-27] MEDS: ACETAMINOPHEN(*)1000 MG/100 ML 100 ML IVPB PRN ×4 (02:23→14:24)
[2017-10-27] MEDS: HYDROmorphone HCL 2 MG/ML SDV IVP PRN ×6 (02:25→22:50)
[2017-10-27 04:43] VITALS: BP 102/68
[2017-10-27 07:44] VITALS: BP 113/74
[2017-10-27] MEDS: ERYTHROMYCIN 250 MG PO SCH ×3 (08:23→20:42)
[2017-10-27] MEDS: ENOXAPARIN 40 MG/0.4ML SYR SC SCH (08:25)
[2017-10-27] MEDS: PANTOPRAZOLE SOD 40 MG IV VIAL IVP SCH (08:25)
--- NOTE | 2017-10-27 08:28 | General Surgery Progress Note ---
Subjective Progress Notes Subjective No complaints. No pain. Physical Exam Vital Signs Date Time Temp Pulse Resp B/P (MAP) Pulse Ox O2 Delivery O2 Flow Rate FiO2 10/27/17 07:44 97.9 99 16 113/74 (87) 91 Nasal Cannula 3.0 General Appearance: Alert, Awake, No Acute Distress, Afebrile GI: Soft and Non-Tender (Stoma is pink with gas and stool in bag.) Extremities: Warm, Perfused Result Diagram: 10/26/1761110/26/17611 Assessment and Plan Problems: (1) Small bowel obstruction due to postoperative adhesions Status: Acute Assessment & Plan: 10/04/17: Admit, nothing by mouth, IV fluids, bowel rest, conservative management start with. We'll follow his x-rays and NG tube output as well as stoma output. We will hold off on any sort of surgery until he is about 6 weeks out from his initial resection surgery. Hopefully he will respond to conservative management. His last meal was yesterday and his mother reports that he has been eating reasonably well. If he is unable to eat and about 5 or 6 days then we will need to consider a PICC line and starting TPN. I have explained this plan to the patient's mother and she seems to understand and seems to be agreeable with this plan. 10/05/17: Continued small bowel obstruction clinically and radiographically based on his KUB this morning. Will continue conservative management with NG tube decompression, bowel rest, and IV fluids. Continue IV antibiotics for pneumonia. If he fails to get better in the next several days may consider diagnostic laparoscopy with drainage of the pelvic fluid collection and inspection of his small bowel. We'll let his small bowel decompress further before contemplating this. 10/06/17: Will give po gastrograffin and will get CT this afternoon. KUB a little better but not much function from stoma. May need to consider exploratory laparoscopy tomorrow if not getting better. Stoma with white patches and area of necrosis on inferior portion only. Possibly the stoma appliance was cut too tight and pressing on the stoma, will need to follow this. Will add antifungal coverage in case white patches represent fungal infection of stoma although I don't recall every having seen this. Pt still with intermittent low grade fevers on broad spectrum antibiotic coverage so antifungal coverage will broaden that coverage as well. O/W, CCM. 10/07/17: Not much change. No stoma output. KUB has not yet been done this morning. Labs OK. Still with low grade fevers. WBC normal, neutrophil count coming down. CT abd/pelvis yesterday with decreased small bowel distension but still with evidence of SBO, fluid collection in unchanged, no free fluid or air. 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 Will await KUB. Getting to the point where we will need to consider PICC line and starting TPN. May discuss laparoscopic exploration later today; will discuss with patient's mother. 10/08/17: 4 weeks s/p robotic LAR, POD#1 s/p ex-laparoscopy with RILEY and drainage of presacral fluid. Doing well. WBC normal. Will follow fevers/ vitals, etc. Place PICC today to start TPN. Await return of bowel function. 10/09/17: POD2 ex laparoscopy. Awaiting return of bowel function. +BS and minimal NGT output so may be soon. Plan to start TPN on Wednesday. Patient needs to ambulate. Continue abx for pneumonia. Will try to remove perez catheter tomorrow. 10/10/17: POD3 ex laparoscopy. Still awaiting return of bowel function. Clamp NGT till noon and remove if low residuals and in good position on KUB. continue abx, continue perez. dropped MIVF to 75cc/hr. Patient is not participating with therapy. Good bowel sounds so started bowel reg today, senna s/miralax. 10/11/17: POD4 ex laparoscopy. Awaiting bowel function. NGT removed yesterday. Plan PICC/TPN today. Will need swallow eval before taking orals, could not tolerate bowel reg yesterday. May attempt to remove perez today. Ordered labs. 10/12/17: POD#5. Stable. Started TPN yesterday. KUB with gas throughout colon , I suspect we'll start seeing gas in stoma bag in next day or two. Still some dilated small bowel but colon looks better on KUB. Perez out, patient seems to be urinating without problems. CCM until bowel function returns. 10/13/17: POD#6. Doing well but still no evidence of bowel function. Continue bowel rest and TPN. Await return of bowel function. COntinue lovenox and PPI. CCM. 10/14/17: POD#7. Doing well. DAQUAN removed yesterday. KUB continues to improve with gas to distal colon but still no activity from stoma yet. Continue bowel rest and TPN while we await return of bowel function. Continue lovenox and PPI. 10/15/17: POD#8. Doing well but now with mild fevers and intermittent tachycardia. He has no pain and his abdominal exam is benign. Will get CXR and check UA. He's not on abx other than diflucan at this point. Continue bowel rest and TPN until bowel function returns. Continue lovenox, PPI. Hopeful for return of bowel function soon. 10/16/17: POD#9. Appears to be at his baseline. Ambulated with PT yesterday> 100 feet. Urinary incomplete emptying- started on Flomax 10/15. Stoma was irrigated with Fleets Enema by Dr Claudio 10/15 with nothing more out than enema fluid. He has no pain and his abdominal exam is benign. 10/15/17 with T max 100.4- CXR was clear and UA was clear--both improved today. Off abx but remains on Diflucan for ronda appearance of the stoma noted earlier in hospitalization. Will do a trial of Erythromycin for potential bowel dysmotility (secondary to bipolar meds?) Continue bowel rest and TPN until bowel function returns. Continue Lovenox, PPI. 10/17/17: POD#10. Appears to be at his baseline. Ambulated with PT yesterday> 100 feet x 2; stronger. Urinary incomplete emptying- started on Flomax 10/15 and bladder scan was minimal for retained fluid. Started on po erythromycin for dysmotility. Stoma with large gas and small liquid out. Started on clear liquids today. He has no pain and his abdominal exam is benign. Off abx and diflucan now while undergoing trial of Erythromycin. Continue TPN until full bowel function/appetite returns. Continue Lovenox, PPI. 10/17/17 (Addendum @ 1220): Intermittent tachycardia. Peristomal hernia noted upon standing by nursing staff. This has been noted previously. No gas output or liquid output since 0600 this AM. Abdomen remains benign to my exam. Discussed care plan with Dr Claudio and will try another enema today. Will continue erythromycin as a potential pro motility agent. 10/18/17: POD#11. Worsened from GI standpoint. Now with increased abdominal distension with N/V this morning. I stopped erythromycin and backed off on his diet. He had a fever this morning to 101F. Will obtain saucedo-cultures including cultures from his PICC line. Will get CXR, empirically start primaxin. May need to repeat abdominal CT. Will see how he does today and what cultures show , etc reveal. 10/19/17: POD#12. Doing better after Perez, NG tube placed and abx restarted. KUB c/w worsened ileus vs SBO. Fevers to over 101F yesterday, no fevers overnight, HR down this morning. Will repeat CT abd/pelvis today. Continue bowel rest, NG tube, TPN. No growth from cultures yet. 10/20/17: POD#13. Still without bowel function. CT c/w SBO with loop in pelvis and continued small bowel thickening in pelvis. Presacral fluid collection is small. Parastomal hernia but no obstruction. Pt's been afebrile now back on Primaxin. Continue bowel rest, NG tube decompression, TPN. No growth in cultures. Perez out last evening. Will see how he's able to void bladder. Will get SBFT with water-soluble contrast today. 10/21/17: POD#14. Possibly doing better? Having some stool output in bag. NG not putting out too much. Will start NG clamp trials. SBFT yesterday revealed no obstruction but c/w adynamic ileus. Now starting to see gastrograffin in stoma bag. Will try erythromycin as promotility agent. 10/22/17: POD#15. Now with stoma output after gastrograffin SBFT but still with dilated loops of small bowel on KUB. Continue NG clamp trials today and follow KUB. Started erythromycin yesterday, will see how effective this is. Continue bowel rest, TPN, etc until GI function clearly returning to normal. 10/23/17: POD#16. Doing well but KUB still with unchanging dilated loops of small bowel. NG not putting much out and pt tolerating clamp trials so will d/ c NG but will continue bowel rest and TPN. Continue erythromycin. 10/24/17: POD#17. Doing well. NG removed yesterday. Pt doing well. Still with ileus as no gas in bag. Will recheck KUB tomorrow morning. Continue bowel rest. May need to discuss Kg with psychiatry to discuss his medication' s role in prolonged ileus. Continue TPN. 18: POD#18. Doing well. Now having some gas from stoma. KUB looks a little better this morning with decreased dilated loops of small bowel. Hospital is out of Erythromycin IV and it is on backorder. Will change to PO erythromycin for promotility effects. Will o/w continue bowel rest until more signs of bowel activity since the last time she showed signs of gas and stool from his stoma when he was advanced to clears he became severely distended and we needed to replace his NG tube and resume rx for ileus vs SBO. Continue TPN until tolerating regular diet. 18: POD#19. Doing well. Increasing gas in stoma bag. Still with dilated loops of small bowel on KUB. Will hold of on diet for now until KUB markedly better and stoma bag consistently with a lot of gas in it (it is intermittent currently) given his previous intolerance to clear diet a couple of weeks ago when he acutely redeveloped his ileus. Continue bowel rest and TPN, continue PO erythromycin for promotility. 18: POD#20. Doing well. Bowel function improving. Will get KUB tomorrow morning and if small bowel dilation resolved then will slowly advance diet. Continue erythromycin, bowel rest, TPN today. (2) Pneumonia Status: Resolved Assessment & Plan: Now Off Antibiotics; Being treated with albuterol for expiratory wheezing (3) Urinary retention with incomplete bladder emptying Status: Chronic Assessment & Plan: Started flomax, will follow response. (4) Bipolar disorder, unspecified Status: Chronic Assessment & Plan: On Home medications (5) ANEMIA IN OTHER CHRONIC DISEASES CLASSIFIED ELSEWHERE Status: Chronic Assessment & Plan: Anemia likely secondary to chronic disease; Monitor (6) Hyponatremia Status: Chronic Assessment & Plan: 10/16/17: Appears to be euvolemic; Can adjust IV Fluids; Monitor 10/17/17: Sodium 132; on fluid restriction. IVF changed to NS from 1/2NS. Monitor (7) Hypoalbuminemia due to protein-calorie malnutrition Status: Chronic Assessment & Plan: Albumin 2.0; On TPN; Remains NPO due to ileus or bowel dysmotility (8) Hypoxia Status: Resolved Assessment & Plan: Remains on 2 liters Nasal Canula; Encourage ambulation/ assisted; Attempt O2 weaning (9) Peristomal hernia Status: Chronic Assessment & Plan: Present on admission exam and CT scan. Does not appear to be the source of his SBO. Easily reducible. Monitor during this acute process but may need repair remotely. Condition Stable. Time Spent: < 30 min Exam Sepsis Risk: No Definite Risk Problem Qualifiers (1) Pneumonia: Pneumonia type: due to unspecified organism Laterality: unspecified laterality Lung location: unspecified part of lung Qualified Codes: J18.9 - Pneumonia, unspecified organism ZACH CLAUDIO MD Oct 27, 2017 08:28
[2017-10-27] MEDS: NS 0.9% IVPB SCH (10:07)
[2017-10-27] MEDS: VALPROATE SOD IVPB SCH (10:07)
[2017-10-27 10:59] VITALS: BP 108/61
[2017-10-27] MEDS: KCL/DNS 20 MEQ/1000 ML PREMIX 1,000 ML IV PRN (13:26)
[2017-10-27 15:23] VITALS: BP 120/62
[2017-10-27] MEDS: FAT EMULSION 20% 250 ML BAG 250 ML IVPB SCH (18:10)
[2017-10-27 19:30] VITALS: BP 126/83
[2017-10-27] MEDS: TAMSULOSIN HCL 0.4 MG CAP PO SCH (20:42)
[2017-10-27] MEDS: VALPROATE SOD 100 MG/ML VIAL 1,000 MG in NS(*) 0.9% 100 ML BAG 100 ML IVPB SCH (20:42)
[2017-10-27] MEDS: OLANZapine ZYDIS ODT 5MG TABDP PO SCH (20:42)
[2017-10-27] MEDS: NS(*) 0.9% 250 ML BAG 250 ML IVPB PRN (20:43)
[2017-10-28] VITALS (7 sets, daily range): BP systolic 111–127; BP diastolic 44–75
[2017-10-28] MEDS: [UNRECOGNIZED DRUG - OTHER] IV SCH ×2 (00:56→22:50)
[2017-10-28] MEDS: ACETAMINOPHEN(*)1000 MG/100 ML 100 ML IVPB PRN ×4 (02:55→20:49)
[2017-10-28] MEDS: HYDROmorphone HCL 2 MG/ML SDV IVP PRN ×6 (02:55→22:41)
[2017-10-28 05:55] LABS: PLATELET COUNT, AUTOMATED 647 K/uL (150-450)
--- NOTE | 2017-10-28 07:32 | General Surgery Progress Note ---
Subjective Progress Notes Subjective No complaints. No pain. Physical Exam Vital Signs Date Time Temp Pulse Resp B/P (MAP) Pulse Ox O2 Delivery O2 Flow Rate FiO2 10/28/17 07:22 97.6 85 18 127/73 (91) 92 Nasal Cannula 3.0 Intake and Output 10/29/17 07:00 Output Total 200 ml Balance -200 ml Output Urine Total 200 ml # Voids 1 General Appearance: Alert, Awake, No Acute Distress, Afebrile GI: Soft and Non-Tender (Stoma is pink with stool in bag but no gas this morning.) Extremities: Warm, Perfused Result Diagram: 10/28/17 0539 10/28/17 0539 Assessment and Plan Problems: (1) Small bowel obstruction due to postoperative adhesions Status: Acute Assessment & Plan: 10/04/17: Admit, nothing by mouth, IV fluids, bowel rest, conservative management start with. We'll follow his x-rays and NG tube output as well as stoma output. We will hold off on any sort of surgery until he is about 6 weeks out from his initial resection surgery. Hopefully he will respond to conservative management. His last meal was yesterday and his mother reports that he has been eating reasonably well. If he is unable to eat and about 5 or 6 days then we will need to consider a PICC line and starting TPN. I have explained this plan to the patient's mother and she seems to understand and seems to be agreeable with this plan. 10/05/17: Continued small bowel obstruction clinically and radiographically based on his KUB this morning. Will continue conservative management with NG tube decompression, bowel rest, and IV fluids. Continue IV antibiotics for pneumonia. If he fails to get better in the next several days may consider diagnostic laparoscopy with drainage of the pelvic fluid collection and inspection of his small bowel. We'll let his small bowel decompress further before contemplating this. 10/06/17: Will give po gastrograffin and will get CT this afternoon. KUB a little better but not much function from stoma. May need to consider exploratory laparoscopy tomorrow if not getting better. Stoma with white patches and area of necrosis on inferior portion only. Possibly the stoma appliance was cut too tight and pressing on the stoma, will need to follow this. Will add antifungal coverage in case white patches represent fungal infection of stoma although I don't recall every having seen this. Pt still with intermittent low grade fevers on broad spectrum antibiotic coverage so antifungal coverage will broaden that coverage as well. O/W, CCM. 10/07/17: Not much change. No stoma output. KUB has not yet been done this morning. Labs OK. Still with low grade fevers. WBC normal, neutrophil count coming down. CT abd/pelvis yesterday with decreased small bowel distension but still with evidence of SBO, fluid collection in unchanged, no free fluid or air. 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 Will await KUB. Getting to the point where we will need to consider PICC line and starting TPN. May discuss laparoscopic exploration later today; will discuss with patient's mother. 10/08/17: 4 weeks s/p robotic LAR, POD#1 s/p ex-laparoscopy with RILEY and drainage of presacral fluid. Doing well. WBC normal. Will follow fevers/ vitals, etc. Place PICC today to start TPN. Await return of bowel function. 10/09/17: POD2 ex laparoscopy. Awaiting return of bowel function. +BS and minimal NGT output so may be soon. Plan to start TPN on Wednesday. Patient needs to ambulate. Continue abx for pneumonia. Will try to remove perez catheter tomorrow. 10/10/17: POD3 ex laparoscopy. Still awaiting return of bowel function. Clamp NGT till noon and remove if low residuals and in good position on KUB. continue abx, continue perez. dropped MIVF to 75cc/hr. Patient is not participating with therapy. Good bowel sounds so started bowel reg today, senna s/miralax. 10/11/17: POD4 ex laparoscopy. Awaiting bowel function. NGT removed yesterday. Plan PICC/TPN today. Will need swallow eval before taking orals, could not tolerate bowel reg yesterday. May attempt to remove perez today. Ordered labs. 10/12/17: POD#5. Stable. Started TPN yesterday. KUB with gas throughout colon , I suspect we'll start seeing gas in stoma bag in next day or two. Still some dilated small bowel but colon looks better on KUB. Perez out, patient seems to be urinating without problems. CCM until bowel function returns. 10/13/17: POD#6. Doing well but still no evidence of bowel function. Continue bowel rest and TPN. Await return of bowel function. COntinue lovenox and PPI. CCM. 10/14/17: POD#7. Doing well. DAQUAN removed yesterday. KUB continues to improve with gas to distal colon but still no activity from stoma yet. Continue bowel rest and TPN while we await return of bowel function. Continue lovenox and PPI. 10/15/17: POD#8. Doing well but now with mild fevers and intermittent tachycardia. He has no pain and his abdominal exam is benign. Will get CXR and check UA. He's not on abx other than diflucan at this point. Continue bowel rest and TPN until bowel function returns. Continue lovenox, PPI. Hopeful for return of bowel function soon. 10/16/17: POD#9. Appears to be at his baseline. Ambulated with PT yesterday> 100 feet. Urinary incomplete emptying- started on Flomax 10/15. Stoma was irrigated with Fleets Enema by Dr Claudio 10/15 with nothing more out than enema fluid. He has no pain and his abdominal exam is benign. 10/15/17 with T max 100.4- CXR was clear and UA was clear--both improved today. Off abx but remains on Diflucan for ronda appearance of the stoma noted earlier in hospitalization. Will do a trial of Erythromycin for potential bowel dysmotility (secondary to bipolar meds?) Continue bowel rest and TPN until bowel function returns. Continue Lovenox, PPI. 10/17/17: POD#10. Appears to be at his baseline. Ambulated with PT yesterday> 100 feet x 2; stronger. Urinary incomplete emptying- started on Flomax 10/15 and bladder scan was minimal for retained fluid. Started on po erythromycin for dysmotility. Stoma with large gas and small liquid out. Started on clear liquids today. He has no pain and his abdominal exam is benign. Off abx and diflucan now while undergoing trial of Erythromycin. Continue TPN until full bowel function/appetite returns. Continue Lovenox, PPI. 10/17/17 (Addendum @ 1220): Intermittent tachycardia. Peristomal hernia noted upon standing by nursing staff. This has been noted previously. No gas output or liquid output since 0600 this AM. Abdomen remains benign to my exam. Discussed care plan with Dr Claudio and will try another enema today. Will continue erythromycin as a potential pro motility agent. 10/18/17: POD#11. Worsened from GI standpoint. Now with increased abdominal distension with N/V this morning. I stopped erythromycin and backed off on his diet. He had a fever this morning to 101F. Will obtain saucedo-cultures including cultures from his PICC line. Will get CXR, empirically start primaxin. May need to repeat abdominal CT. Will see how he does today and what cultures show , etc reveal. 10/19/17: POD#12. Doing better after Perez, NG tube placed and abx restarted. KUB c/w worsened ileus vs SBO. Fevers to over 101F yesterday, no fevers overnight, HR down this morning. Will repeat CT abd/pelvis today. Continue bowel rest, NG tube, TPN. No growth from cultures yet. 10/20/17: POD#13. Still without bowel function. CT c/w SBO with loop in pelvis and continued small bowel thickening in pelvis. Presacral fluid collection is small. Parastomal hernia but no obstruction. Pt's been afebrile now back on Primaxin. Continue bowel rest, NG tube decompression, TPN. No growth in cultures. Perez out last evening. Will see how he's able to void bladder. Will get SBFT with water-soluble contrast today. 10/21/17: POD#14. Possibly doing better? Having some stool output in bag. NG not putting out too much. Will start NG clamp trials. SBFT yesterday revealed no obstruction but c/w adynamic ileus. Now starting to see gastrograffin in stoma bag. Will try erythromycin as promotility agent. 10/22/17: POD#15. Now with stoma output after gastrograffin SBFT but still with dilated loops of small bowel on KUB. Continue NG clamp trials today and follow KUB. Started erythromycin yesterday, will see how effective this is. Continue bowel rest, TPN, etc until GI function clearly returning to normal. 10/23/17: POD#16. Doing well but KUB still with unchanging dilated loops of small bowel. NG not putting much out and pt tolerating clamp trials so will d/ c NG but will continue bowel rest and TPN. Continue erythromycin. 10/24/17: POD#17. Doing well. NG removed yesterday. Pt doing well. Still with ileus as no gas in bag. Will recheck KUB tomorrow morning. Continue bowel rest. May need to discuss Kg with psychiatry to discuss his medication' s role in prolonged ileus. Continue TPN. 10/25/17: POD#18. Doing well. Now having some gas from stoma. KUB looks a little better this morning with decreased dilated loops of small bowel. Hospital is out of Erythromycin IV and it is on backorder. Will change to PO erythromycin for promotility effects. Will o/w continue bowel rest until more signs of bowel activity since the last time she showed signs of gas and stool from his stoma when he was advanced to clears he became severely distended and we needed to replace his NG tube and resume rx for ileus vs SBO. Continue TPN until tolerating regular diet. 10/26/17: POD#19. Doing well. Increasing gas in stoma bag. Still with dilated loops of small bowel on KUB. Will hold of on diet for now until KUB markedly better and stoma bag consistently with a lot of gas in it (it is intermittent currently) given his previous intolerance to clear diet a couple of weeks ago when he acutely redeveloped his ileus. Continue bowel rest and TPN, continue PO erythromycin for promotility. 10/27/17: POD#20. Doing well. Bowel function improving. Will get KUB tomorrow morning and if small bowel dilation resolved then will slowly advance diet. Continue erythromycin, bowel rest, TPN today. 10/28/17: POD#21. Doing well. No gas in bag this morning. KUB with improving but still dilated loops of small bowel. Will see how his stoma is functioning today. Will change stoma bag to a new one to get a sense of stool output today. Continue bowel rest, TPN, erythromycin today. If he's putting gas/ stool out as today progresses, may try clear diet later today. (2) Pneumonia Status: Resolved Assessment & Plan: Now Off Antibiotics; Being treated with albuterol for expiratory wheezing (3) Urinary retention with incomplete bladder emptying Status: Chronic Assessment & Plan: Started flomax, will follow response. (4) Bipolar disorder, unspecified Status: Chronic Assessment & Plan: On Home medications (5) ANEMIA IN OTHER CHRONIC DISEASES CLASSIFIED ELSEWHERE Status: Chronic Assessment & Plan: Anemia likely secondary to chronic disease; Monitor (6) Hyponatremia Status: Chronic Assessment & Plan: 10/16/17: Appears to be euvolemic; Can adjust IV Fluids; Monitor 10/17/17: Sodium 132; on fluid restriction. IVF changed to NS from 2NS. Monitor (7) Hypoalbuminemia due to protein-calorie malnutrition Status: Chronic Assessment & Plan: Albumin 2.0; On TPN; Remains NPO due to ileus or bowel dysmotility (8) Hypoxia Status: Resolved Assessment & Plan: Remains on 2 liters Nasal Canula; Encourage ambulation/ assisted; Attempt O2 weaning (9) Peristomal hernia Status: Chronic Assessment & Plan: Present on admission exam and CT scan. Does not appear to be the source of his SBO. Easily reducible. Monitor during this acute process but may need repair remotely. Condition Stable. Time Spent: < 30 min Exam Sepsis Risk: No Definite Risk Problem Qualifiers (1) Pneumonia: Pneumonia type: due to unspecified organism Laterality: unspecified laterality Lung location: unspecified part of lung Qualified Codes: J18.9 - Pneumonia, unspecified organism ZACH CLAUDIO MD Oct 28, 2017 07:32
[2017-10-28] MEDS: PANTOPRAZOLE SOD 40 MG IV VIAL IVP SCH (08:21)
[2017-10-28] MEDS: ENOXAPARIN 40 MG/0.4ML SYR SC SCH (08:22)
[2017-10-28] MEDS: ERYTHROMYCIN 250 MG PO SCH ×3 (08:22→20:49)
--- NOTE | 2017-10-28 08:26 | RADIOLOGY IMAGING REPORT ---
[place]AC[place] [facility] [place] NAME: Matthew Roth : 1960 MR: [id number] V: [id number] EXAM DATE: ORDERING PHYSICIAN: ZACH CLAUDIO TECHNOLOGIST: [place] [facility] [place] Patient: Matthew Roth : 1960 Visit/Account:[id number] Date of Sevice: 10/28/2017 KUB SINGLE VIEW ABDOMEN INDICATION: Ileus COMPARISON: October 26, 2017 FINDINGS: There is persistent contrast within the colon. Mild dilatation of small bowel loops is sta ble to slightly decreased. No acute osseous abnormality. IMPRESSION: Mild small bowel dilatation is stable to slightly decreased. Report Dictated By: Vic Angulo MD at 10/28/2017 8:20 AM Report E-Signed By: Vic Angulo MD at 10/28/2017 8:22 AM WSN:[id number]
[2017-10-28] MEDS: NS 0.9% IVPB SCH (09:40)
[2017-10-28] MEDS: VALPROATE SOD IVPB SCH (09:40)
--- NOTE | 2017-10-28 16:10 | Medical Nutrition Therapy ---
Nutrition Anthropometrics Height (Inches): 67.00 Height (Calculated Centimeters: [phone] Weight (Pounds): 133 Weight (Calculated Kilograms): 60.328 BMI: 22.5 Sherman Nutrition Score: Adequate Sherman Nutrition Risk Score: 18 Dietary Referral Nutrition Risk Factors: Nutrition Risk Comment: Nutritional Diagnosis Nutritional Risk Acuity 1: TPN/PPN, GI Obstruction (SBO) Past Medical History: fecal incontinence, severe manic bipolar 1 disorder with psychotic behavior, psychogenic polydipsia, hyponatremia, OCD, rectal cancer, SBO, fatigue, weakness, hyperlipidemia, pneumonia, hx colon cancer, pevlic fluid collection Nutritional Acuity: 1-High Nutrition Diagnosis: Inadequate Food Intake Nutrition Etiology: Physiological Causes Nutrition Problem/Etiology/Sym: Inadequate oral intake related to physiological causes as evidence by nutrition support from TPN. Energy Requirement: 2515 ([place] X 1.3SF) Protein Requirement: 86 (1.3gm/kg) Fluid Requirement: 2000 (30ml/kg) Diet Type: NPO/Meds Only, TPN/PPN Nutrition Intervention: Nutrition support (TPN ) Nutritional Support Current Enteral / Parental: TPN Current Tube Feeding Formula C: 83 ml/hr Clinimex 5% AA 15% dextrose + 250 ml 20% lipid/12 hrs Tube Feeding Supplement Streng: Full Rate: 75 ml/hr plus lipids Current Duration: 24 Current Calories: 1520 Current Protein: 100 Current Lipids Calories: 500 Total Current Calories: 2020 Recommended Enteral / Parental: TPN Recommended Tube Feeding Formu: 125ml/hr Clinimex 5% AA , 15% dextose, + 20% lipid/12 hrs Recommended Duration: 24 Recommended Calories: 2130 Recommended Protein: 150 Recommended Lipids Calories: 500 Total Recommended Calories: 2630 Nutrition Monitoring & Eval Nutritional Goals Comment: TPN will meet nutr needs until oral intake can meet needs. RD Patient Assessment Time: [address] Assessment Type: RD Re-Assessment Patient Nutrition Acuity: 1-High Follow Up Date: Oct 29, 2017 Nutritional Comment: 10/05 Pt admitted for SBO and pneumonia. Pt is experiencing N/V, fever and abdominal pain. Pt is on NPO diet with meds only. Pt has a hx of colon cancer. Pt had a colostomy placed (09/10). Pt mother states the his bowel movements have in his bag have been more bulky. She states that he eats reasonably well. However, in doctor's note he had stated if pt does not eat within the next 5-6 days a PICC line and TPN would be placed. Mother agreed to this plan. Pt WBC was elevated and has reach WNR. Pt is on antibiotics for pneumonia. Pt has pelvic fluid collection and at risk for sepsis. Pt has low Na (130) and low H/H. Continue to monitor pt progress, labs and diet advancement. -MT 10/07 Pt continues on NPO diet, he is now on day three. Pt states that he wants water. Pt still has evidence of SBO and fluid collection. In the doctor's note it states pt is getting to the point where we will need to consider PICC line and starting TPN. Pt may benefit from 1800 ml TPN at 75ml/hr providing 1836 kcal ad 76g protein. This will meet 94% of the pt energy needs and 97% protein. Pt has low alb (2.3), no other concern labs at this time. Will continue to monitor pt progress and TPN order. -MT 10/08 Pt 4th day NPO. Per Dr notes, pt will start TPN today. Alb has declined to 2. Recommend final TPN rate of 75 ml/hr plus lipids to meet 109% est kcal and 97% est protein needs. 10/10 Low H/H, Alb 2.0, Low Ca+. TPN delayed until Wednesday (10/11), bowel sounds now present. Follow clinical progression. -DRT 10/12 Continues to have low H/H, low WBC, Na (127), alb (2.1) and elevated K+ (6.9). Pt started TPN (10/11). NG tube and perez removed. Pt did swallowing eval. No concern at this time. Will continue to monitor pt progress and diet advancement. -MT 10/15 No complaints. Pt has mild fever. Pt is still weak and experiencing tremors in both LE. DAQUAN removed yesterday (10/14). Colostomy bag continues to have gas in it, however no BM. Per doctor note continue bowel rest and TPN while we await return of bowel function. Pt urinary retention and pneumonia have been resolved. Pt Na is low (133). Pt is receiving IV Na PRN. Will continue to monitor pt progress, labs and encourage intake.-MT 10/18 Pt continues on TPN until bowel function returns to normal. Per doctor note, will do a trial of Erythromycin for potential bowel dysmotility. Did two enemas, got some liquids in colostomy bag. However doctors note states GI has gotten worse. Pt is distended with N/V. Pt had a fever yesterday (101) with elevated WAC (11.1) and blood glucose ( 128). Pt has had a 5# wt loss since 10/12 (146#) to now (141). Will continue to monitor pt progress, labs and diet advancement. -MT 10/20 Wt is down 10# since admission. Alb 2.5 is improving. Pt cont on TPN. Reassessed nutritional needs with est higher kcal and protein needs. Recommend increase TPN to 2000 ml/24 hr plus 250ml lipids 12 hrs to meet 95% est kcal and 98% est protein needs. Cont to monitor. BK 10/23 Pt cont on TPN with hypoactivbe bowel sounds. TPN was increased to 2000ml/24 hr to meet 95% est kcal and 98% est protein needs. Alb at 2.3 slowly increaseing . Wt is up 2#. Will cont to monitor. BK 10/25 Pt cont on TPN with hypoactivbe bowel sounds and maryanne from stoma. TPN is meeting 95% est kcal and 98% est protein needs. Alb at 2.4 is slowly increaseing . Wt is within usual range. Will cont to monitor. BK 10/28 Pt cont on TPN however on10/24 pharmacy changed to a 15% dextrose, 5% protein solution which provides 1420 kcal + 500 from lipid for total kcal of 2020 and 100 gm protein. This meets 80% est kcal and 116% est protein needs. Pt has lost wt from 144# on 10/24 to 133# on 10/27 with some of the wt loss probalby r/t fluids. However recommend increase TPN to 3000ml/day to provide 2630 kcal to meet 105% est kcal and 174% est protein needs to avoid futher wt loss. Alb declined to 2.3 so additional protein would be helpful. Recommend cont TPN until oral intake can meet nutr needs. Copies To Copies to: ZACH CLAUDIO MD, BETH Oct 28, 2017 15:56
[2017-10-28] MEDS: FAT EMULSION 20% 250 ML BAG 250 ML IVPB SCH (17:54)
[2017-10-28] MEDS: TAMSULOSIN HCL 0.4 MG CAP PO SCH (20:45)
[2017-10-28] MEDS: OLANZapine ZYDIS ODT 5MG TABDP PO SCH (20:49)
[2017-10-28] MEDS: VALPROATE SOD 100 MG/ML VIAL 1,000 MG in NS(*) 0.9% 100 ML BAG 100 ML IVPB SCH (20:49)
[2017-10-29 02:12] VITALS: BP 99/47
[2017-10-29] MEDS: HYDROmorphone HCL 2 MG/ML SDV IVP PRN (02:19)
[2017-10-29] MEDS: ACETAMINOPHEN(*)1000 MG/100 ML 100 ML IVPB PRN ×3 (05:12→17:30)
--- NOTE | 2017-10-29 06:59 | General Surgery Progress Note ---
Subjective Progress Notes Subjective No complaints. No gas or stool in bag overnight per nursing. Physical Exam Vital Signs Date Time Temp Pulse Resp B/P (MAP) Pulse Ox O2 Delivery O2 Flow Rate FiO2 10/29/17 02:12 99.1 108 20 99/47 (64) 92 Nasal Cannula 3.0 General Appearance: Alert, Awake, No Acute Distress, Afebrile GI: Soft and Non-Tender Extremities: Warm, Perfused Result Diagram: 10/28/17 0539 10/28/17 0539 Assessment and Plan Problems: (1) Small bowel obstruction due to postoperative adhesions Status: Acute Assessment & Plan: 10/04/17: Admit, nothing by mouth, IV fluids, bowel rest, conservative management start with. We'll follow his x-rays and NG tube output as well as stoma output. We will hold off on any sort of surgery until he is about 6 weeks out from his initial resection surgery. Hopefully he will respond to conservative management. His last meal was yesterday and his mother reports that he has been eating reasonably well. If he is unable to eat and about 5 or 6 days then we will need to consider a PICC line and starting TPN. I have explained this plan to the patient's mother and she seems to understand and seems to be agreeable with this plan. 10/05/17: Continued small bowel obstruction clinically and radiographically based on his KUB this morning. Will continue conservative management with NG tube decompression, bowel rest, and IV fluids. Continue IV antibiotics for pneumonia. If he fails to get better in the next several days may consider diagnostic laparoscopy with drainage of the pelvic fluid collection and inspection of his small bowel. We'll let his small bowel decompress further before contemplating this. 10/06/17: Will give po gastrograffin and will get CT this afternoon. KUB a little better but not much function from stoma. May need to consider exploratory laparoscopy tomorrow if not getting better. Stoma with white patches and area of necrosis on inferior portion only. Possibly the stoma appliance was cut too tight and pressing on the stoma, will need to follow this. Will add antifungal coverage in case white patches represent fungal infection of stoma although I don't recall every having seen this. Pt still with intermittent low grade fevers on broad spectrum antibiotic coverage so antifungal coverage will broaden that coverage as well. O/W, CCM. 10/07/17: Not much change. No stoma output. KUB has not yet been done this morning. Labs OK. Still with low grade fevers. WBC normal, neutrophil count coming down. CT abd/pelvis yesterday with decreased small bowel distension but still with evidence of SBO, fluid collection in unchanged, no free fluid or air. 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 Will await KUB. Getting to the point where we will need to consider PICC line and starting TPN. May discuss laparoscopic exploration later today; will discuss with patient's mother. 10/08/17: 4 weeks s/p robotic LAR, POD#1 s/p ex-laparoscopy with RILEY and drainage of presacral fluid. Doing well. WBC normal. Will follow fevers/ vitals, etc. Place PICC today to start TPN. Await return of bowel function. 10/09/17: POD2 ex laparoscopy. Awaiting return of bowel function. +BS and minimal NGT output so may be soon. Plan to start TPN on Wednesday. Patient needs to ambulate. Continue abx for pneumonia. Will try to remove perez catheter tomorrow. 10/10/17: POD3 ex laparoscopy. Still awaiting return of bowel function. Clamp NGT till noon and remove if low residuals and in good position on KUB. continue abx, continue perez. dropped MIVF to 75cc/hr. Patient is not participating with therapy. Good bowel sounds so started bowel reg today, senna s/miralax. 10/11/17: POD4 ex laparoscopy. Awaiting bowel function. NGT removed yesterday. Plan PICC/TPN today. Will need swallow eval before taking orals, could not tolerate bowel reg yesterday. May attempt to remove perez today. Ordered labs. 10/12/17: POD#5. Stable. Started TPN yesterday. KUB with gas throughout colon , I suspect we'll start seeing gas in stoma bag in next day or two. Still some dilated small bowel but colon looks better on KUB. Perez out, patient seems to be urinating without problems. CCM until bowel function returns. 10/13/17: POD#6. Doing well but still no evidence of bowel function. Continue bowel rest and TPN. Await return of bowel function. COntinue lovenox and PPI. CCM. 10/14/17: POD#7. Doing well. DAQAUN removed yesterday. KUB continues to improve with gas to distal colon but still no activity from stoma yet. Continue bowel rest and TPN while we await return of bowel function. Continue lovenox and PPI. 10/15/17: POD#8. Doing well but now with mild fevers and intermittent tachycardia. He has no pain and his abdominal exam is benign. Will get CXR and check UA. He's not on abx other than diflucan at this point. Continue bowel rest and TPN until bowel function returns. Continue lovenox, PPI. Hopeful for return of bowel function soon. 10/16/17: POD#9. Appears to be at his baseline. Ambulated with PT yesterday> 100 feet. Urinary incomplete emptying- started on Flomax 10/15. Stoma was irrigated with Fleets Enema by Dr Claudio 10/15 with nothing more out than enema fluid. He has no pain and his abdominal exam is benign. 10/15/17 with T max 100.4- CXR was clear and UA was clear--both improved today. Off abx but remains on Diflucan for ronda appearance of the stoma noted earlier in hospitalization. Will do a trial of Erythromycin for potential bowel dysmotility (secondary to bipolar meds?) Continue bowel rest and TPN until bowel function returns. Continue Lovenox, PPI. 10/17/17: POD#10. Appears to be at his baseline. Ambulated with PT yesterday> 100 feet x 2; stronger. Urinary incomplete emptying- started on Flomax 10/15 and bladder scan was minimal for retained fluid. Started on po erythromycin for dysmotility. Stoma with large gas and small liquid out. Started on clear liquids today. He has no pain and his abdominal exam is benign. Off abx and diflucan now while undergoing trial of Erythromycin. Continue TPN until full bowel function/appetite returns. Continue Lovenox, PPI. 10/17/17 (Addendum @ 1220): Intermittent tachycardia. Peristomal hernia noted upon standing by nursing staff. This has been noted previously. No gas output or liquid output since 0600 this AM. Abdomen remains benign to my exam. Discussed care plan with Dr Claudio and will try another enema today. Will continue erythromycin as a potential pro motility agent. 10/18/17: POD#11. Worsened from GI standpoint. Now with increased abdominal distension with N/V this morning. I stopped erythromycin and backed off on his diet. He had a fever this morning to 101F. Will obtain saucedo-cultures including cultures from his PICC line. Will get CXR, empirically start primaxin. May need to repeat abdominal CT. Will see how he does today and what cultures show , etc reveal. 10/19/17: POD#12. Doing better after Perez, NG tube placed and abx restarted. KUB c/w worsened ileus vs SBO. Fevers to over 101F yesterday, no fevers overnight, HR down this morning. Will repeat CT abd/pelvis today. Continue bowel rest, NG tube, TPN. No growth from cultures yet. 10/20/17: POD#13. Still without bowel function. CT c/w SBO with loop in pelvis and continued small bowel thickening in pelvis. Presacral fluid collection is small. Parastomal hernia but no obstruction. Pt's been afebrile now back on Primaxin. Continue bowel rest, NG tube decompression, TPN. No growth in cultures. Perez out last evening. Will see how he's able to void bladder. Will get SBFT with water-soluble contrast today. 10/21/17: POD#14. Possibly doing better? Having some stool output in bag. NG not putting out too much. Will start NG clamp trials. SBFT yesterday revealed no obstruction but c/w adynamic ileus. Now starting to see gastrograffin in stoma bag. Will try erythromycin as promotility agent. 10/22/17: POD#15. Now with stoma output after gastrograffin SBFT but still with dilated loops of small bowel on KUB. Continue NG clamp trials today and follow KUB. Started erythromycin yesterday, will see how effective this is. Continue bowel rest, TPN, etc until GI function clearly returning to normal. 10/23/17: POD#16. Doing well but KUB still with unchanging dilated loops of small bowel. NG not putting much out and pt tolerating clamp trials so will d/ c NG but will continue bowel rest and TPN. Continue erythromycin. 10/24/17: POD#17. Doing well. NG removed yesterday. Pt doing well. Still with ileus as no gas in bag. Will recheck KUB tomorrow morning. Continue bowel rest. May need to discuss Kg with psychiatry to discuss his medication' s role in prolonged ileus. Continue TPN. 10/25/17: POD#18. Doing well. Now having some gas from stoma. KUB looks a little better this morning with decreased dilated loops of small bowel. Hospital is out of Erythromycin IV and it is on backorder. Will change to PO erythromycin for promotility effects. Will o/w continue bowel rest until more signs of bowel activity since the last time she showed signs of gas and stool from his stoma when he was advanced to clears he became severely distended and we needed to replace his NG tube and resume rx for ileus vs SBO. Continue TPN until tolerating regular diet. 10/26/17: POD#19. Doing well. Increasing gas in stoma bag. Still with dilated loops of small bowel on KUB. Will hold of on diet for now until KUB markedly better and stoma bag consistently with a lot of gas in it (it is intermittent currently) given his previous intolerance to clear diet a couple of weeks ago when he acutely redeveloped his ileus. Continue bowel rest and TPN, continue PO erythromycin for promotility. 10/27/17: POD#20. Doing well. Bowel function improving. Will get KUB tomorrow morning and if small bowel dilation resolved then will slowly advance diet. Continue erythromycin, bowel rest, TPN today. 10/28/17: POD#21. Doing well. No gas in bag this morning. KUB with improving but still dilated loops of small bowel. Will see how his stoma is functioning today. Will change stoma bag to a new one to get a sense of stool output today. Continue bowel rest, TPN, erythromycin today. If he's putting gas/ stool out as today progresses, may try clear diet later today. 10/29/17: POD#22. No stoma activity once again. No gas or stool in bag for last 36-48hrs. Will check KUB this morning. O/W, continue bowel rest, TPN, erythromycin. (2) Pneumonia Status: Resolved Assessment & Plan: Now Off Antibiotics; Being treated with albuterol for expiratory wheezing (3) Urinary retention with incomplete bladder emptying Status: Chronic Assessment & Plan: Started flomax, will follow response. (4) Bipolar disorder, unspecified Status: Chronic Assessment & Plan: On Home medications (5) ANEMIA IN OTHER CHRONIC DISEASES CLASSIFIED ELSEWHERE Status: Chronic Assessment & Plan: Anemia likely secondary to chronic disease; Monitor (6) Hyponatremia Status: Chronic Assessment & Plan: 10/16/17: Appears to be euvolemic; Can adjust IV Fluids; Monitor 10/17/17: Sodium 132; on fluid restriction. IVF changed to NS from 12NS. Monitor (7) Hypoalbuminemia due to protein-calorie malnutrition Status: Chronic Assessment & Plan: Albumin 2.0; On TPN; Remains NPO due to ileus or bowel dysmotility (8) Hypoxia Status: Resolved Assessment & Plan: Remains on 2 liters Nasal Canula; Encourage ambulation/ assisted; Attempt O2 weaning (9) Peristomal hernia Status: Chronic Assessment & Plan: Present on admission exam and CT scan. Does not appear to be the source of his SBO. Easily reducible. Monitor during this acute process but may need repair remotely. Condition Stable. Time Spent: < 30 min Exam Sepsis Risk: No Definite Risk Problem Qualifiers (1) Pneumonia: Pneumonia type: due to unspecified organism Laterality: unspecified laterality Lung location: unspecified part of lung Qualified Codes: J18.9 - Pneumonia, unspecified organism ZACH CLAUDIO MD Oct 29, 2017 06:59
[2017-10-29 07:58] VITALS: BP 103/62
--- NOTE | 2017-10-29 08:13 | RADIOLOGY IMAGING REPORT ---
FACILITY: [facility] - [place] PATIENT NAME: Matthew Roth : 1960 MR: [id number] V: [id number] EXAM DATE: ORDERING PHYSICIAN: ZACH CLAUDIO TECHNOLOGIST: [place] [facility] [place] Patient: Matthew Roth : 1960 Visit/Account:[id number] Date of Sevice: 10/29/2017 KUB SINGLE VIEW ABDOMEN HISTORY: Ileus. COMPARISON: 10/28/2017. FINDINGS: Lines/tubes: None. Bowel gas pattern: Unchanged contrast material in the colon. Slightly decreased gaseous distention o f small bowel. No evidence of obstruction. Left lower quadrant ostomy. Soft tissues: Negative. Bony structures: Negative. Visualized lung bases: Negative. IMPRESSION: Slightly decreased gaseous distention of small bowel compared with 10/28/2017. Stable contr ast in the colon. Report Dictated By: Alon Delgado MD at 10/29/2017 8:09 AM Report E-Signed By: Alon Delgado MD at 10/29/2017 8:11 AM WSN:[id number]
[2017-10-29] MEDS: ENOXAPARIN 40 MG/0.4ML SYR SC SCH (09:17)
[2017-10-29] MEDS: ERYTHROMYCIN 250 MG PO SCH ×3 (09:17→20:18)
[2017-10-29] MEDS: PANTOPRAZOLE SOD 40 MG IV VIAL IVP SCH (09:18)
[2017-10-29] MEDS: NS 0.9% IVPB SCH (09:18)
[2017-10-29] MEDS: VALPROATE SOD IVPB SCH (09:18)
--- NOTE | 2017-10-29 10:06 | Medical Nutrition Therapy ---
Nutrition Anthropometrics Height (Inches): 67.00 Height (Calculated Centimeters: 170.812326 Weight (Pounds): 138 Weight (Calculated Kilograms): 62.596 BMI: 22.5 Sherman Nutrition Score: Probably Inadequate Sherman Nutrition Risk Score: 17 Dietary Referral Nutrition Risk Factors: Nutrition Risk Comment: Nutritional Diagnosis Nutritional Risk Acuity 1: TPN/PPN, GI Obstruction (SBO) Past Medical History: fecal incontinence, severe manic bipolar 1 disorder with psychotic behavior, psychogenic polydipsia, hyponatremia, OCD, rectal cancer, SBO, fatigue, weakness, hyperlipidemia, pneumonia, hx colon cancer, pevlic fluid collection Nutritional Acuity: 1-High Nutrition Diagnosis: Inadequate Food Intake Nutrition Etiology: Physiological Causes Nutrition Problem/Etiology/Sym: Inadequate oral intake related to physiological causes as evidence by nutrition support from TPN. Energy Requirement: 2515 ([place]iff[place]in-St.Jeor X 1.3SF) Protein Requirement: 86 (1.3gm/kg) Fluid Requirement: 2000 (30ml/kg) Diet Type: NPO/Meds Only, TPN/PPN Nutrition Intervention: Nutrition support (TPN ) Nutritional Support Current Enteral / Parental: TPN Current Tube Feeding Formula C: 125ml/hr Clinimex 5% AA , 15% dextose, + 20% lipid/12 hrs Tube Feeding Supplement Streng: Full Rate: 75 ml/hr plus lipids Current Duration: 24 Current Calories: 2130 Current Protein: 100 Current Lipids Calories: 500 Total Current Calories: 2630 Nutrition Monitoring & Eval Nutritional Goals Comment: TPN will meet nutr needs until oral intake can meet needs RD Patient Assessment Time: [address] Assessment Type: RD Re-Assessment Patient Nutrition Acuity: 1-High Follow Up Date: Nov 01, 2017 Nutritional Comment: 10/05 Pt admitted for SBO and pneumonia. Pt is experiencing N/V, fever and abdominal pain. Pt is on NPO diet with meds only. Pt has a hx of colon cancer. Pt had a colostomy placed (09/10). Pt mother states the his bowel movements have in his bag have been more bulky. She states that he eats reasonably well. However, in doctor's note he had stated if pt does not eat within the next 5-6 days a PICC line and TPN would be placed. Mother agreed to this plan. Pt WBC was elevated and has reach WNR. Pt is on antibiotics for pneumonia. Pt has pelvic fluid collection and at risk for sepsis. Pt has low Na (130) and low H/H. Continue to monitor pt progress, labs and diet advancement. -MT 10/07 Pt continues on NPO diet, he is now on day three. Pt states that he wants water. Pt still has evidence of SBO and fluid collection. In the doctor's note it states pt is getting to the point where we will need to consider PICC line and starting TPN. Pt may benefit from 1800 ml TPN at 75ml/hr providing 1836 kcal ad 76g protein. This will meet 94% of the pt energy needs and 97% protein. Pt has low alb (2.3), no other concern labs at this time. Will continue to monitor pt progress and TPN order. -MT 10/08 Pt 4th day NPO. Per Dr notes, pt will start TPN today. Alb has declined to 2. Recommend final TPN rate of 75 ml/hr plus lipids to meet 109% est kcal and 97% est protein needs. BK 10/10 Low H/H, Alb 2.0, Low Ca+. TPN delayed until Wednesday (10/11), bowel sounds now present. Follow clinical progression. -DRT 10/12 Continues to have low H/H, low WBC, Na (127), alb (2.1) and elevated K+ (6.9). Pt started TPN (10/11). NG tube and perez removed. Pt did swallowing eval. No concern at this time. Will continue to monitor pt progress and diet advancement. -MT 10/15 No complaints. Pt has mild fever. Pt is still weak and experiencing tremors in both LE. DAQUAN removed yesterday (10/14). Colostomy bag continues to have gas in it, however no BM. Per doctor note continue bowel rest and TPN while we await return of bowel function. Pt urinary retention and pneumonia have been resolved. Pt Na is low (133). Pt is receiving IV Na PRN. Will continue to monitor pt progress, labs and encourage intake.-MT 10/18 Pt continues on TPN until bowel function returns to normal. Per doctor note, will do a trial of Erythromycin for potential bowel dysmotility. Did two enemas, got some liquids in colostomy bag. However doctors note states GI has gotten worse. Pt is distended with N/V. Pt had a fever yesterday (101) with elevated WAC (11.1) and blood glucose ( 128). Pt has had a 5# wt loss since 10/12 (146#) to now (141). Will continue to monitor pt progress, labs and diet advancement. -MT 10/20 Wt is down 10# since admission. Alb 2.5 is improving. Pt cont on TPN. Reassessed nutritional needs with est higher kcal and protein needs. Recommend increase TPN to 2000 ml/24 hr plus 250ml lipids 12 hrs to meet 95% est kcal and 98% est protein needs. Cont to monitor. BK 10/23 Pt cont on TPN with hypoactivbe bowel sounds. TPN was increased to 2000ml/24 hr to meet 95% est kcal and 98% est protein needs. Alb at 2.3 slowly increaseing . Wt is up 2#. Will cont to monitor. BK 10/25 Pt cont on TPN with hypoactivbe bowel sounds and maryanne from stoma. TPN is meeting 95% est kcal and 98% est protein needs. Alb at 2.4 is slowly increaseing . Wt is within usual range. Will cont to monitor. BK 10/28 Pt cont on TPN however on10/24 pharmacy changed to a 15% dextrose, 5% protein solution which provides 1420 kcal + 500 from lipid for total kcal of 2020 and 100 gm protein. This meets 80% est kcal and 116% est protein needs. Pt has lost wt from 144# on 10/24 to 133# on 10/27 with some of the wt loss probalby r/t fluids. However recommend increase TPN to 3000ml/day to provide 2630 kcal to meet 105% est kcal and 174% est protein needs to avoid futher wt loss. Alb declined to 2.3 so additional protein would be helpful. Recommend cont TPN until oral intake can meet nutr needs. BK 10/29 TPN increased to 3L/day of Clinimex 09/07. TPN is now meeting 105% est kcal needs, 174% est protein needs. Wt is back up 4#. Cont down 19% from admit wt. Alb 2.3. Cont to monitor. JOE PADILLA Oct 29, 2017 10:04
[2017-10-29 11:47] VITALS: BP 107/66
[2017-10-29] MEDS: [UNRECOGNIZED DRUG - OTHER] IV SCH (15:05)
[2017-10-29 15:14] VITALS: BP 103/60
[2017-10-29] MEDS: FAT EMULSION 20% 250 ML BAG 250 ML IVPB SCH (17:54)
[2017-10-29 19:08] VITALS: BP 119/79
[2017-10-29] MEDS: VALPROATE SOD 100 MG/ML VIAL 1,000 MG in NS(*) 0.9% 100 ML BAG 100 ML IVPB SCH (20:18)
[2017-10-29] MEDS: TAMSULOSIN HCL 0.4 MG CAP PO SCH (20:18)
[2017-10-29] MEDS: OLANZapine ZYDIS ODT 5MG TABDP PO SCH (20:18)
[2017-10-29 22:08] VITALS: BP 118/72
[2017-10-30] MEDS: ACETAMINOPHEN(*)1000 MG/100 ML 100 ML IVPB PRN ×3 (01:55→15:05)
[2017-10-30 03:55] VITALS: BP 123/77
[2017-10-30 06:11] LABS: PLATELET COUNT, AUTOMATED 586 K/uL (150-450)
[2017-10-30 07:15] VITALS: BP 112/69
[2017-10-30] MEDS: [UNRECOGNIZED DRUG - OTHER] IV SCH (07:57)
[2017-10-30] MEDS: ENOXAPARIN 40 MG/0.4ML SYR SC SCH (08:04)
[2017-10-30] MEDS: PANTOPRAZOLE SOD 40 MG IV VIAL IVP SCH (08:04)
[2017-10-30] MEDS: ERYTHROMYCIN 250 MG PO SCH ×3 (08:05→20:33)
[2017-10-30] MEDS: VALPROATE SOD IVPB SCH (09:37)
[2017-10-30] MEDS: NS 0.9% IVPB SCH (09:37)
[2017-10-30] MEDS: NS(*) 0.9% 250 ML BAG 250 ML IVPB PRN (09:37)
--- NOTE | 2017-10-30 10:41 | General Surgery Progress Note ---
Physical Exam Vital Signs Date Time Temp Pulse Resp B/P (MAP) Pulse Ox O2 Delivery O2 Flow Rate FiO2 10/30/17 07:35 92 Nasal Cannula 2.0 10/30/17 07:15 97.8 83 18 112/69 (83) Intake and Output 10/31/17 06:59 Output Total 200 ml Balance -200 ml Output Urine Total 200 ml # Voids 2 GI: Soft and Non-Tender, Other (stoma pink with some stool present for last few days but no new flatus or stool.) Result Diagram: 10/30/17 0550 10/30/17 0550 Assessment and Plan Problems: (1) Small bowel obstruction due to postoperative adhesions Status: Acute Assessment & Plan: 10/04/17: Admit, nothing by mouth, IV fluids, bowel rest, conservative management start with. We'll follow his x-rays and NG tube output as well as stoma output. We will hold off on any sort of surgery until he is about 6 weeks out from his initial resection surgery. Hopefully he will respond to conservative management. His last meal was yesterday and his mother reports that he has been eating reasonably well. If he is unable to eat and about 5 or 6 days then we will need to consider a PICC line and starting TPN. I have explained this plan to the patient's mother and she seems to understand and seems to be agreeable with this plan. 10/05/17: Continued small bowel obstruction clinically and radiographically based on his KUB this morning. Will continue conservative management with NG tube decompression, bowel rest, and IV fluids. Continue IV antibiotics for pneumonia. If he fails to get better in the next several days may consider diagnostic laparoscopy with drainage of the pelvic fluid collection and inspection of his small bowel. We'll let his small bowel decompress further before contemplating this. 10/06/17: Will give po gastrograffin and will get CT this afternoon. KUB a little better but not much function from stoma. May need to consider exploratory laparoscopy tomorrow if not getting better. Stoma with white patches and area of necrosis on inferior portion only. Possibly the stoma appliance was cut too tight and pressing on the stoma, will need to follow this. Will add antifungal coverage in case white patches represent fungal infection of stoma although I don't recall every having seen this. Pt still with intermittent low grade fevers on broad spectrum antibiotic coverage so antifungal coverage will broaden that coverage as well. O/W, CCM. 10/07/17: Not much change. No stoma output. KUB has not yet been done this morning. Labs OK. Still with low grade fevers. WBC normal, neutrophil count coming down. CT abd/pelvis yesterday with decreased small bowel distension but still with evidence of SBO, fluid collection in unchanged, no free fluid or air. 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 Will await KUB. Getting to the point where we will need to consider PICC line and starting TPN. May discuss laparoscopic exploration later today; will discuss with patient's mother. 10/08/17: 4 weeks s/p robotic LAR, POD#1 s/p ex-laparoscopy with RILEY and drainage of presacral fluid. Doing well. WBC normal. Will follow fevers/ vitals, etc. Place PICC today to start TPN. Await return of bowel function. 10/09/17: POD2 ex laparoscopy. Awaiting return of bowel function. +BS and minimal NGT output so may be soon. Plan to start TPN on Wednesday. Patient needs to ambulate. Continue abx for pneumonia. Will try to remove perez catheter tomorrow. 10/10/17: POD3 ex laparoscopy. Still awaiting return of bowel function. Clamp NGT till noon and remove if low residuals and in good position on KUB. continue abx, continue perez. dropped MIVF to 75cc/hr. Patient is not participating with therapy. Good bowel sounds so started bowel reg today, senna s/miralax. 10/11/17: POD4 ex laparoscopy. Awaiting bowel function. NGT removed yesterday. Plan PICC/TPN today. Will need swallow eval before taking orals, could not tolerate bowel reg yesterday. May attempt to remove perez today. Ordered labs. 10/12/17: POD#5. Stable. Started TPN yesterday. KUB with gas throughout colon , I suspect we'll start seeing gas in stoma bag in next day or two. Still some dilated small bowel but colon looks better on KUB. Perez out, patient seems to be urinating without problems. CCM until bowel function returns. 10/13/17: POD#6. Doing well but still no evidence of bowel function. Continue bowel rest and TPN. Await return of bowel function. COntinue lovenox and PPI. CCM. 10/14/17: POD#7. Doing well. DAQUAN removed yesterday. KUB continues to improve with gas to distal colon but still no activity from stoma yet. Continue bowel rest and TPN while we await return of bowel function. Continue lovenox and PPI. 10/15/17: POD#8. Doing well but now with mild fevers and intermittent tachycardia. He has no pain and his abdominal exam is benign. Will get CXR and check UA. He's not on abx other than diflucan at this point. Continue bowel rest and TPN until bowel function returns. Continue lovenox, PPI. Hopeful for return of bowel function soon. 10/16/17: POD#9. Appears to be at his baseline. Ambulated with PT yesterday> 100 feet. Urinary incomplete emptying- started on Flomax 10/15. Stoma was irrigated with Fleets Enema by Dr Roque 10/15 with nothing more out than enema fluid. He has no pain and his abdominal exam is benign. 10/15/17 with T max 100.4- CXR was clear and UA was clear--both improved today. Off abx but remains on Diflucan for ronda appearance of the stoma noted earlier in hospitalization. Will do a trial of Erythromycin for potential bowel dysmotility (secondary to bipolar meds?) Continue bowel rest and TPN until bowel function returns. Continue Lovenox, PPI. 10/17/17: POD#10. Appears to be at his baseline. Ambulated with PT yesterday> 100 feet x 2; stronger. Urinary incomplete emptying- started on Flomax 10/15 and bladder scan was minimal for retained fluid. Started on po erythromycin for dysmotility. Stoma with large gas and small liquid out. Started on clear liquids today. He has no pain and his abdominal exam is benign. Off abx and diflucan now while undergoing trial of Erythromycin. Continue TPN until full bowel function/appetite returns. Continue Lovenox, PPI. 10/17/17 (Addendum @ 1220): Intermittent tachycardia. Peristomal hernia noted upon standing by nursing staff. This has been noted previously. No gas output or liquid output since 0600 this AM. Abdomen remains benign to my exam. Discussed care plan with Dr Roque and will try another enema today. Will continue erythromycin as a potential pro motility agent. 10/18/17: POD#11. Worsened from GI standpoint. Now with increased abdominal distension with N/V this morning. I stopped erythromycin and backed off on his diet. He had a fever this morning to 101F. Will obtain saucedo-cultures including cultures from his PICC line. Will get CXR, empirically start primaxin. May need to repeat abdominal CT. Will see how he does today and what cultures show , etc reveal. 10/19/17: POD#12. Doing better after Perez, NG tube placed and abx restarted. KUB c/w worsened ileus vs SBO. Fevers to over 101F yesterday, no fevers overnight, HR down this morning. Will repeat CT abd/pelvis today. Continue bowel rest, NG tube, TPN. No growth from cultures yet. 10/20/17: POD#13. Still without bowel function. CT c/w SBO with loop in pelvis and continued small bowel thickening in pelvis. Presacral fluid collection is small. Parastomal hernia but no obstruction. Pt's been afebrile now back on Primaxin. Continue bowel rest, NG tube decompression, TPN. No growth in cultures. Perez out last evening. Will see how he's able to void bladder. Will get SBFT with water-soluble contrast today. 10/21/17: POD#14. Possibly doing better? Having some stool output in bag. NG not putting out too much. Will start NG clamp trials. SBFT yesterday revealed no obstruction but c/w adynamic ileus. Now starting to see gastrograffin in stoma bag. Will try erythromycin as promotility agent. 10/22/17: POD#15. Now with stoma output after gastrograffin SBFT but still with dilated loops of small bowel on KUB. Continue NG clamp trials today and follow KUB. Started erythromycin yesterday, will see how effective this is. Continue bowel rest, TPN, etc until GI function clearly returning to normal. 10/23/17: POD#16. Doing well but KUB still with unchanging dilated loops of small bowel. NG not putting much out and pt tolerating clamp trials so will d/ c NG but will continue bowel rest and TPN. Continue erythromycin. 10/24/17: POD#17. Doing well. NG removed yesterday. Pt doing well. Still with ileus as no gas in bag. Will recheck KUB tomorrow morning. Continue bowel rest. May need to discuss Kg with psychiatry to discuss his medication' s role in prolonged ileus. Continue TPN. 10/25/17: POD#18. Doing well. Now having some gas from stoma. KUB looks a little better this morning with decreased dilated loops of small bowel. Hospital is out of Erythromycin IV and it is on backorder. Will change to PO erythromycin for promotility effects. Will o/w continue bowel rest until more signs of bowel activity since the last time she showed signs of gas and stool from his stoma when he was advanced to clears he became severely distended and we needed to replace his NG tube and resume rx for ileus vs SBO. Continue TPN until tolerating regular diet. 10/26/17: POD#19. Doing well. Increasing gas in stoma bag. Still with dilated loops of small bowel on KUB. Will hold of on diet for now until KUB markedly better and stoma bag consistently with a lot of gas in it (it is intermittent currently) given his previous intolerance to clear diet a couple of weeks ago when he acutely redeveloped his ileus. Continue bowel rest and TPN, continue PO erythromycin for promotility. 10/27/17: POD#20. Doing well. Bowel function improving. Will get KUB tomorrow morning and if small bowel dilation resolved then will slowly advance diet. Continue erythromycin, bowel rest, TPN today. 10/28/17: POD#21. Doing well. No gas in bag this morning. KUB with improving but still dilated loops of small bowel. Will see how his stoma is functioning today. Will change stoma bag to a new one to get a sense of stool output today. Continue bowel rest, TPN, erythromycin today. If he's putting gas/ stool out as today progresses, may try clear diet later today. 10/29/17: POD#22. No stoma activity once again. No gas or stool in bag for last 36-48hrs. Will check KUB this morning. O/W, continue bowel rest, TPN, erythromycin. 10/30/17: POD#23. Still no activity from the stoma. Patient is not in distress and does not have a suspicious abdominal exam. Continue to monitor, continue TPN and NPO. Ambulate. (2) Pneumonia Status: Resolved Assessment & Plan: Now Off Antibiotics; Being treated with albuterol for expiratory wheezing (3) Urinary retention with incomplete bladder emptying Status: Chronic Assessment & Plan: Started flomax, will follow response. (4) Bipolar disorder, unspecified Status: Chronic Assessment & Plan: On Home medications (5) ANEMIA IN OTHER CHRONIC DISEASES CLASSIFIED ELSEWHERE Status: Chronic Assessment & Plan: Anemia likely secondary to chronic disease; Monitor (6) Hyponatremia Status: Chronic Assessment & Plan: 10/16/17: Appears to be euvolemic; Can adjust IV Fluids; Monitor 10/17/17: Sodium 132; on fluid restriction. IVF changed to NS from 1/2NS. Monitor (7) Hypoalbuminemia due to protein-calorie malnutrition Status: Chronic Assessment & Plan: Albumin 2.0; On TPN; Remains NPO due to ileus or bowel dysmotility (8) Hypoxia Status: Resolved Assessment & Plan: Remains on 2 liters Nasal Canula; Encourage ambulation/ assisted; Attempt O2 weaning (9) Peristomal hernia Status: Chronic Assessment & Plan: Present on admission exam and CT scan. Does not appear to be the source of his SBO. Easily reducible. Monitor during this acute process but may need repair remotely. Exam Sepsis Risk: No Definite Risk Problem Qualifiers (1) Pneumonia: Pneumonia type: due to unspecified organism Laterality: unspecified laterality Lung location: unspecified part of lung Qualified Codes: J18.9 - Pneumonia, unspecified organism TRINI TRAN MD Oct 30, 2017 10:41
[2017-10-30 14:41] VITALS: BP 106/81
[2017-10-30] MEDS: FAT EMULSION 20% 250 ML BAG 250 ML IVPB SCH (18:02)
[2017-10-30 18:46] VITALS: BP 116/66
[2017-10-30] MEDS: TAMSULOSIN HCL 0.4 MG CAP PO SCH (20:32)
[2017-10-30] MEDS: VALPROATE SOD 100 MG/ML VIAL 1,000 MG in NS(*) 0.9% 100 ML BAG 100 ML IVPB SCH (20:33)
[2017-10-30] MEDS: OLANZapine ZYDIS ODT 5MG TABDP PO SCH (20:34)
[2017-10-30 22:55] VITALS: BP 109/71
[2017-10-31] MEDS: [UNRECOGNIZED DRUG - OTHER] IV SCH ×2 (00:30→15:22)
[2017-10-31] MEDS: ACETAMINOPHEN(*)1000 MG/100 ML 100 ML IVPB PRN ×2 (02:40→15:15)
[2017-10-31 02:44] VITALS: BP 107/64
[2017-10-31 08:43] VITALS: BP 110/65
[2017-10-31] MEDS: ERYTHROMYCIN 250 MG PO SCH ×3 (09:03→20:47)
[2017-10-31] MEDS: PANTOPRAZOLE SOD 40 MG IV VIAL IVP SCH (09:03)
[2017-10-31] MEDS: ENOXAPARIN 40 MG/0.4ML SYR SC SCH (09:04)
[2017-10-31] MEDS: NS 0.9% IVPB SCH (10:22)
[2017-10-31] MEDS: VALPROATE SOD IVPB SCH (10:22)
--- NOTE | 2017-10-31 10:31 | General Surgery Progress Note ---
Physical Exam Vital Signs Date Time Temp Pulse Resp B/P (MAP) Pulse Ox O2 Delivery O2 Flow Rate FiO2 10/31/17 08:59 92 Nasal Cannula 3.0 10/31/17 08:43 97.7 91 24 110/65 (80) Intake and Output 11/01/17 06:59 Output Total 350 ml Balance -350 ml Output Urine Total 350 ml # Voids 2 General Appearance: No Acute Distress, Other (asleep but awakens to stimulation ) Neuro: Other (intermittent tremors at baseline per nursing) Cardiovascular: Regular Rate and Rhythm Respiratory: No Respiratory Distress GI: Soft and Non-Tender, Other (abdomen soft, non distended, no signficant change in flatus or stool per stoma, stoma pink, old scars consistent with reported surgeries) Result Diagram: 10/30/17 0550 10/30/17 0550 Assessment and Plan Problems: (1) Small bowel obstruction due to postoperative adhesions Status: Acute Assessment & Plan: 10/04/17: Admit, nothing by mouth, IV fluids, bowel rest, conservative management start with. We'll follow his x-rays and NG tube output as well as stoma output. We will hold off on any sort of surgery until he is about 6 weeks out from his initial resection surgery. Hopefully he will respond to conservative management. His last meal was yesterday and his mother reports that he has been eating reasonably well. If he is unable to eat and about 5 or 6 days then we will need to consider a PICC line and starting TPN. I have explained this plan to the patient's mother and she seems to understand and seems to be agreeable with this plan. 10/05/17: Continued small bowel obstruction clinically and radiographically based on his KUB this morning. Will continue conservative management with NG tube decompression, bowel rest, and IV fluids. Continue IV antibiotics for pneumonia. If he fails to get better in the next several days may consider diagnostic laparoscopy with drainage of the pelvic fluid collection and inspection of his small bowel. We'll let his small bowel decompress further before contemplating this. 10/06/17: Will give po gastrograffin and will get CT this afternoon. KUB a little better but not much function from stoma. May need to consider exploratory laparoscopy tomorrow if not getting better. Stoma with white patches and area of necrosis on inferior portion only. Possibly the stoma appliance was cut too tight and pressing on the stoma, will need to follow this. Will add antifungal coverage in case white patches represent fungal infection of stoma although I don't recall every having seen this. Pt still with intermittent low grade fevers on broad spectrum antibiotic coverage so antifungal coverage will broaden that coverage as well. O/W, CCM. 10/07/17: Not much change. No stoma output. KUB has not yet been done this morning. Labs OK. Still with low grade fevers. WBC normal, neutrophil count coming down. CT abd/pelvis yesterday with decreased small bowel distension but still with evidence of SBO, fluid collection in unchanged, no free fluid or air. 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 Will await KUB. Getting to the point where we will need to consider PICC line and starting TPN. May discuss laparoscopic exploration later today; will discuss with patient's mother. 10/08/17: 4 weeks s/p robotic LAR, POD#1 s/p ex-laparoscopy with RILEY and drainage of presacral fluid. Doing well. WBC normal. Will follow fevers/ vitals, etc. Place PICC today to start TPN. Await return of bowel function. 10/09/17: POD2 ex laparoscopy. Awaiting return of bowel function. +BS and minimal NGT output so may be soon. Plan to start TPN on Wednesday. Patient needs to ambulate. Continue abx for pneumonia. Will try to remove perez catheter tomorrow. 10/10/17: POD3 ex laparoscopy. Still awaiting return of bowel function. Clamp NGT till noon and remove if low residuals and in good position on KUB. continue abx, continue perez. dropped MIVF to 75cc/hr. Patient is not participating with therapy. Good bowel sounds so started bowel reg today, senna s/miralax. 10/11/17: POD4 ex laparoscopy. Awaiting bowel function. NGT removed yesterday. Plan PICC/TPN today. Will need swallow eval before taking orals, could not tolerate bowel reg yesterday. May attempt to remove perez today. Ordered labs. 10/12/17: POD#5. Stable. Started TPN yesterday. KUB with gas throughout colon , I suspect we'll start seeing gas in stoma bag in next day or two. Still some dilated small bowel but colon looks better on KUB. Perez out, patient seems to be urinating without problems. CCM until bowel function returns. 10/13/17: POD#6. Doing well but still no evidence of bowel function. Continue bowel rest and TPN. Await return of bowel function. COntinue lovenox and PPI. CCM. 10/14/17: POD#7. Doing well. DAQUAN removed yesterday. KUB continues to improve with gas to distal colon but still no activity from stoma yet. Continue bowel rest and TPN while we await return of bowel function. Continue lovenox and PPI. 10/15/17: POD#8. Doing well but now with mild fevers and intermittent tachycardia. He has no pain and his abdominal exam is benign. Will get CXR and check UA. He's not on abx other than diflucan at this point. Continue bowel rest and TPN until bowel function returns. Continue lovenox, PPI. Hopeful for return of bowel function soon. 10/16/17: POD#9. Appears to be at his baseline. Ambulated with PT yesterday> 100 feet. Urinary incomplete emptying- started on Flomax 10/15. Stoma was irrigated with Fleets Enema by Dr Roque 10/15 with nothing more out than enema fluid. He has no pain and his abdominal exam is benign. 10/15/17 with T max 100.4- CXR was clear and UA was clear--both improved today. Off abx but remains on Diflucan for ronda appearance of the stoma noted earlier in hospitalization. Will do a trial of Erythromycin for potential bowel dysmotility (secondary to bipolar meds?) Continue bowel rest and TPN until bowel function returns. Continue Lovenox, PPI. 10/17/17: POD#10. Appears to be at his baseline. Ambulated with PT yesterday> 100 feet x 2; stronger. Urinary incomplete emptying- started on Flomax 10/15 and bladder scan was minimal for retained fluid. Started on po erythromycin for dysmotility. Stoma with large gas and small liquid out. Started on clear liquids today. He has no pain and his abdominal exam is benign. Off abx and diflucan now while undergoing trial of Erythromycin. Continue TPN until full bowel function/appetite returns. Continue Lovenox, PPI. 10/17/17 (Addendum @ 1220): Intermittent tachycardia. Peristomal hernia noted upon standing by nursing staff. This has been noted previously. No gas output or liquid output since 0600 this AM. Abdomen remains benign to my exam. Discussed care plan with Dr Roque and will try another enema today. Will continue erythromycin as a potential pro motility agent. 10/18/17: POD#11. Worsened from GI standpoint. Now with increased abdominal distension with N/V this morning. I stopped erythromycin and backed off on his diet. He had a fever this morning to 101F. Will obtain saucedo-cultures including cultures from his PICC line. Will get CXR, empirically start primaxin. May need to repeat abdominal CT. Will see how he does today and what cultures show , etc reveal. 10/19/17: POD#12. Doing better after Perez, NG tube placed and abx restarted. KUB c/w worsened ileus vs SBO. Fevers to over 101F yesterday, no fevers overnight, HR down this morning. Will repeat CT abd/pelvis today. Continue bowel rest, NG tube, TPN. No growth from cultures yet. 10/20/17: POD#13. Still without bowel function. CT c/w SBO with loop in pelvis and continued small bowel thickening in pelvis. Presacral fluid collection is small. Parastomal hernia but no obstruction. Pt's been afebrile now back on Primaxin. Continue bowel rest, NG tube decompression, TPN. No growth in cultures. Perez out last evening. Will see how he's able to void bladder. Will get SBFT with water-soluble contrast today. 10/21/17: POD#14. Possibly doing better? Having some stool output in bag. NG not putting out too much. Will start NG clamp trials. SBFT yesterday revealed no obstruction but c/w adynamic ileus. Now starting to see gastrograffin in stoma bag. Will try erythromycin as promotility agent. 10/22/17: POD#15. Now with stoma output after gastrograffin SBFT but still with dilated loops of small bowel on KUB. Continue NG clamp trials today and follow KUB. Started erythromycin yesterday, will see how effective this is. Continue bowel rest, TPN, etc until GI function clearly returning to normal. 10/23/17: POD#16. Doing well but KUB still with unchanging dilated loops of small bowel. NG not putting much out and pt tolerating clamp trials so will d/ c NG but will continue bowel rest and TPN. Continue erythromycin. 10/24/17: POD#17. Doing well. NG removed yesterday. Pt doing well. Still with ileus as no gas in bag. Will recheck KUB tomorrow morning. Continue bowel rest. May need to discuss Kg with psychiatry to discuss his medication' s role in prolonged ileus. Continue TPN. 10/25/17: POD#18. Doing well. Now having some gas from stoma. KUB looks a little better this morning with decreased dilated loops of small bowel. Hospital is out of Erythromycin IV and it is on backorder. Will change to PO erythromycin for promotility effects. Will o/w continue bowel rest until more signs of bowel activity since the last time she showed signs of gas and stool from his stoma when he was advanced to clears he became severely distended and we needed to replace his NG tube and resume rx for ileus vs SBO. Continue TPN until tolerating regular diet. 10/26/17: POD#19. Doing well. Increasing gas in stoma bag. Still with dilated loops of small bowel on KUB. Will hold of on diet for now until KUB markedly better and stoma bag consistently with a lot of gas in it (it is intermittent currently) given his previous intolerance to clear diet a couple of weeks ago when he acutely redeveloped his ileus. Continue bowel rest and TPN, continue PO erythromycin for promotility. 10/27/17: POD#20. Doing well. Bowel function improving. Will get KUB tomorrow morning and if small bowel dilation resolved then will slowly advance diet. Continue erythromycin, bowel rest, TPN today. 10/28/17: POD#21. Doing well. No gas in bag this morning. KUB with improving but still dilated loops of small bowel. Will see how his stoma is functioning today. Will change stoma bag to a new one to get a sense of stool output today. Continue bowel rest, TPN, erythromycin today. If he's putting gas/ stool out as today progresses, may try clear diet later today. 10/29/17: POD#22. No stoma activity once again. No gas or stool in bag for last 36-48hrs. Will check KUB this morning. O/W, continue bowel rest, TPN, erythromycin. 18: POD#23. Still no activity from the stoma. Patient is not in distress and does not have a suspicious abdominal exam. Continue to monitor, continue TPN and NPO. Ambulate. 10/31/17: POD#24: No evidence of nausea, distension or pain in his abdomen. Some slight amount more stool but not a significant amount. Continue TPN and watchful waiting. Patient experienced a non injury fall yesterday with no obvious sequelae. (2) Pneumonia Status: Resolved Assessment & Plan: Now Off Antibiotics; Being treated with albuterol for expiratory wheezing (3) Urinary retention with incomplete bladder emptying Status: Chronic Assessment & Plan: Started flomax, will follow response. (4) Bipolar disorder, unspecified Status: Chronic Assessment & Plan: On Home medications (5) ANEMIA IN OTHER CHRONIC DISEASES CLASSIFIED ELSEWHERE Status: Chronic Assessment & Plan: Anemia likely secondary to chronic disease; Monitor (6) Hyponatremia Status: Chronic Assessment & Plan: 10/16/17: Appears to be euvolemic; Can adjust IV Fluids; Monitor 10/17/17: Sodium 132; on fluid restriction. IVF changed to NS from 1/2NS. Monitor (7) Hypoalbuminemia due to protein-calorie malnutrition Status: Chronic Assessment & Plan: Albumin 2.0; On TPN; Remains NPO due to ileus or bowel dysmotility (8) Hypoxia Status: Resolved Assessment & Plan: Remains on 2 liters Nasal Canula; Encourage ambulation/ assisted; Attempt O2 weaning (9) Peristomal hernia Status: Chronic Assessment & Plan: Present on admission exam and CT scan. Does not appear to be the source of his SBO. Easily reducible. Monitor during this acute process but may need repair remotely. Exam Sepsis Risk: No Definite Risk Problem Qualifiers (1) Pneumonia: Pneumonia type: due to unspecified organism Laterality: unspecified laterality Lung location: unspecified part of lung Qualified Codes: J18.9 - Pneumonia, unspecified organism TRINI TRAN MD Oct 31, 2017 10:31
[2017-10-31 15:25] VITALS: BP 105/68
[2017-10-31] MEDS: FAT EMULSION 20% 250 ML BAG 250 ML IVPB SCH (18:21)
[2017-10-31 19:33] VITALS: BP 98/63
[2017-10-31] MEDS: VALPROATE SOD 100 MG/ML VIAL 1,000 MG in NS(*) 0.9% 100 ML BAG 100 ML IVPB SCH (20:46)
[2017-10-31] MEDS: TAMSULOSIN HCL 0.4 MG CAP PO SCH (20:46)
[2017-10-31] MEDS: OLANZapine ZYDIS ODT 5MG TABDP PO SCH (20:47)
[2017-10-31 23:21] VITALS: BP 108/73
[2017-11-01] MEDS: ACETAMINOPHEN(*)1000 MG/100 ML 100 ML IVPB PRN ×3 (01:30→19:49)
[2017-11-01 07:55] VITALS: BP 104/80
[2017-11-01] MEDS: [UNRECOGNIZED DRUG - OTHER] IV SCH (08:06)
[2017-11-01] MEDS: ENOXAPARIN 40 MG/0.4ML SYR SC SCH (08:07)
[2017-11-01] MEDS: ERYTHROMYCIN 250 MG PO SCH ×3 (08:07→22:05)
[2017-11-01] MEDS: PANTOPRAZOLE SOD 40 MG IV VIAL IVP SCH (08:08)
--- NOTE | 2017-11-01 08:56 | RADIOLOGY IMAGING REPORT ---
FACILITY: [facility] PATIENT NAME: Matthew Roth : 1960 MR: [id number] V: [id number] EXAM DATE: ORDERING PHYSICIAN: ZACH CLAUDIO TECHNOLOGIST: Location: [facility] Patient: Matthew Roth : 1960 Visit/Account:[id number] Date of Sevice: 11/01/2017 KUB SINGLE VIEW ABDOMEN Given history: ileus COMPARISON: Comparison made to KUB 10/29/2017 and additional radiographs dating back to a small bowel f ollow-through dated 10/20/2017. Bowel gas: Interval improvement in appearance to small bowel with decreasing gaseous distention. Th ere is persistent contrast in the colon unchanged from recent radiographs. This was enteric contrast was was administered on 10/20/2017. There is no colonic distention. Additional findings: None pertinent. IMPRESSION: Improving small bowel with reduced gas. Small bowel appears normal. Probable mild persistent colonic ileus Report Dictated By: Ameya Kevin MD at 11/01/2017 8:50 AM Report E-Signed By: Ameya Kevin MD at 11/01/2017 8:53 AM WSN:[email or web address]
[2017-11-01] MEDS: VALPROATE SOD IVPB SCH (10:05)
[2017-11-01] MEDS: NS 0.9% IVPB SCH (10:05)
--- NOTE | 2017-11-01 10:51 | Medical Nutrition Therapy ---
Nutrition Anthropometrics Height (Inches): 67.00 Height (Calculated Centimeters: 170.379748 Weight (Pounds): 133 Weight (Calculated Kilograms): 60.328 BMI: 22.5 Sherman Nutrition Score: Probably Inadequate Sherman Nutrition Risk Score: 17 Dietary Referral Nutrition Risk Factors: Nutrition Risk Comment: Nutritional Diagnosis Nutritional Risk Acuity 1: TPN/PPN, GI Obstruction (SBO) Past Medical History: fecal incontinence, severe manic bipolar 1 disorder with psychotic behavior, psychogenic polydipsia, hyponatremia, OCD, rectal cancer, SBO, fatigue, weakness, hyperlipidemia, pneumonia, hx colon cancer, pevlic fluid collection Nutritional Acuity: 1-High Nutrition Diagnosis: Inadequate Food Intake Nutrition Etiology: Physiological Causes Nutrition Problem/Etiology/Sym: Inadequate oral intake related to physiological causes as evidence by nutrition support from TPN. Energy Requirement: 2515 ([place]iff[place]in-St.Jeor X 1.3SF) Protein Requirement: 86 (1.3gm/kg) Fluid Requirement: 2000 (30ml/kg) Diet Type: NPO/Meds Only, TPN/PPN Nutrition Intervention: Nutrition support (TPN ) Nutritional Support Current Enteral / Parental: TPN Current Tube Feeding Formula C: 125ml/hr Clinimex 5% AA , 15% dextose, + 20% lipid/12 hrs Tube Feeding Supplement Streng: Full Rate: 75 ml/hr plus lipids Current Duration: 24 Current Calories: 2130 Current Protein: 100 Current Lipids Calories: 500 Total Current Calories: 2630 Nutrition Monitoring & Eval Nutritional Goals Comment: TPN will meet nutritional needs until oral intake can meet needs. RD Patient Assessment Time: [address] Assessment Type: RD Re-Assessment Patient Nutrition Acuity: 1-High Follow Up Date: Nov 04, 2017 Nutritional Comment: 10/05 Pt admitted for SBO and pneumonia. Pt is experiencing N/V, fever and abdominal pain. Pt is on NPO diet with meds only. Pt has a hx of colon cancer. Pt had a colostomy placed (09/10). Pt mother states the his bowel movements have in his bag have been more bulky. She states that he eats reasonably well. However, in doctor's note he had stated if pt does not eat within the next 5-6 days a PICC line and TPN would be placed. Mother agreed to this plan. Pt WBC was elevated and has reach WNR. Pt is on antibiotics for pneumonia. Pt has pelvic fluid collection and at risk for sepsis. Pt has low Na (130) and low H/H. Continue to monitor pt progress, labs and diet advancement. -MT 10/07 Pt continues on NPO diet, he is now on day three. Pt states that he wants water. Pt still has evidence of SBO and fluid collection. In the doctor's note it states pt is getting to the point where we will need to consider PICC line and starting TPN. Pt may benefit from 1800 ml TPN at 75ml/hr providing 1836 kcal ad 76g protein. This will meet 94% of the pt energy needs and 97% protein. Pt has low alb (2.3), no other concern labs at this time. Will continue to monitor pt progress and TPN order. -MT 10/08 Pt 4th day NPO. Per Dr notes, pt will start TPN today. Alb has declined to 2. Recommend final TPN rate of 75 ml/hr plus lipids to meet 109% est kcal and 97% est protein needs. BK 10/10 Low H/H, Alb 2.0, Low Ca+. TPN delayed until Wednesday (10/11), bowel sounds now present. Follow clinical progression. -DRT 10/12 Continues to have low H/H, low WBC, Na (127), alb (2.1) and elevated K+ (6.9). Pt started TPN (10/11). NG tube and perez removed. Pt did swallowing eval. No concern at this time. Will continue to monitor pt progress and diet advancement. -MT 10/15 No complaints. Pt has mild fever. Pt is still weak and experiencing tremors in both LE. DAQUAN removed yesterday (10/14). Colostomy bag continues to have gas in it, however no BM. Per doctor note continue bowel rest and TPN while we await return of bowel function. Pt urinary retention and pneumonia have been resolved. Pt Na is low (133). Pt is receiving IV Na PRN. Will continue to monitor pt progress, labs and encourage intake.-MT 10/18 Pt continues on TPN until bowel function returns to normal. Per doctor note, will do a trial of Erythromycin for potential bowel dysmotility. Did two enemas, got some liquids in colostomy bag. However doctors note states GI has gotten worse. Pt is distended with N/V. Pt had a fever yesterday (101) with elevated WAC (11.1) and blood glucose ( 128). Pt has had a 5# wt loss since 10/12 (146#) to now (141). Will continue to monitor pt progress, labs and diet advancement. -MT 10/20 Wt is down 10# since admission. Alb 2.5 is improving. Pt cont on TPN. Reassessed nutritional needs with est higher kcal and protein needs. Recommend increase TPN to 2000 ml/24 hr plus 250ml lipids 12 hrs to meet 95% est kcal and 98% est protein needs. Cont to monitor. BK 10/23 Pt cont on TPN with hypoactivbe bowel sounds. TPN was increased to 2000ml/24 hr to meet 95% est kcal and 98% est protein needs. Alb at 2.3 slowly increaseing . Wt is up 2#. Will cont to monitor. BK 10/25 Pt cont on TPN with hypoactivbe bowel sounds and maryanne from stoma. TPN is meeting 95% est kcal and 98% est protein needs. Alb at 2.4 is slowly increaseing . Wt is within usual range. Will cont to monitor. BK 10/28 Pt cont on TPN however on10/24 pharmacy changed to a 15% dextrose, 5% protein solution which provides 1420 kcal + 500 from lipid for total kcal of 2020 and 100 gm protein. This meets 80% est kcal and 116% est protein needs. Pt has lost wt from 144# on 10/24 to 133# on 10/27 with some of the wt loss probalby r/t fluids. However recommend increase TPN to 3000ml/day to provide 2630 kcal to meet 105% est kcal and 174% est protein needs to avoid futher wt loss. Alb declined to 2.3 so additional protein would be helpful. Recommend cont TPN until oral intake can meet nutr needs. BK 10/29 TPN increased to 3L/day of Clinimex 09/07. TPN is now meeting 105% est kcal needs, 174% est protein needs. Wt is back up 4#. Cont down 19% from admit wt. Alb 2.3. Cont to monitor. BK 11/01 Pt continues on TPN 3L/day Clinimex 09/07. Pt. has hypoactive bowel sounds, no gas from stoma. Wt. is fluctuating between 133-135# over past 4 days. Alb. has increased to 2.6. May advance diet with mirilax pending KUB. On 10/30 pt. was asleep, but talked with mother - will educate on high kcal/protein diet once off TPN. Will continue to monitor. AHMET ROA Nov 01, 2017 09:01
[2017-11-01] MEDS: POLYETHYLENE GLYCOL 17 GM PKT PO SCH (11:23)
[2017-11-01 15:03] VITALS: BP 119/84
[2017-11-01 18:57] VITALS: BP 96/63
[2017-11-01] MEDS: FAT EMULSION 20% 250 ML BAG 250 ML IVPB SCH (19:49)
[2017-11-01] MEDS: TAMSULOSIN HCL 0.4 MG CAP PO SCH (19:56)
[2017-11-01] MEDS: VALPROATE SOD 100 MG/ML VIAL 1,000 MG in NS(*) 0.9% 100 ML BAG 100 ML IVPB SCH (22:04)
[2017-11-01] MEDS: OLANZapine ZYDIS ODT 5MG TABDP PO SCH (22:05)
[2017-11-01 23:12] VITALS: BP 108/78
[2017-11-02] MEDS: [UNRECOGNIZED DRUG - OTHER] IV SCH ×2 (00:34→17:24)
[2017-11-02] MEDS: ACETAMINOPHEN(*)1000 MG/100 ML 100 ML IVPB PRN ×4 (02:45→23:45)
[2017-11-02 03:00] VITALS: BP 98/63
--- NOTE | 2017-11-02 08:27 | General Surgery Progress Note ---
Subjective Progress Notes Subjective No complaints this morning. No pain. Tolerating small amounts of liquid intake. Physical Exam Vital Signs Date Time Temp Pulse Resp B/P (MAP) Pulse Ox O2 Delivery O2 Flow Rate FiO2 11/02/17 03:00 98.2 91 22 98/63 (75) 96 Nasal Cannula 2.5 General Appearance: Alert, Awake, No Acute Distress, Afebrile GI: Soft and Non-Tender (Stoma is pink with no gas and small amount of liquid stool in bag.) Extremities: Warm, Perfused Result Diagram: 11/01/1752611/01/17526 Assessment and Plan Problems: (1) Small bowel obstruction due to postoperative adhesions Status: Acute Assessment & Plan: 10/04/17: Admit, nothing by mouth, IV fluids, bowel rest, conservative management start with. We'll follow his x-rays and NG tube output as well as stoma output. We will hold off on any sort of surgery until he is about 6 weeks out from his initial resection surgery. Hopefully he will respond to conservative management. His last meal was yesterday and his mother reports that he has been eating reasonably well. If he is unable to eat and about 5 or 6 days then we will need to consider a PICC line and starting TPN. I have explained this plan to the patient's mother and she seems to understand and seems to be agreeable with this plan. 10/05/17: Continued small bowel obstruction clinically and radiographically based on his KUB this morning. Will continue conservative management with NG tube decompression, bowel rest, and IV fluids. Continue IV antibiotics for pneumonia. If he fails to get better in the next several days may consider diagnostic laparoscopy with drainage of the pelvic fluid collection and inspection of his small bowel. We'll let his small bowel decompress further before contemplating this. 10/06/17: Will give po gastrograffin and will get CT this afternoon. KUB a little better but not much function from stoma. May need to consider exploratory laparoscopy tomorrow if not getting better. Stoma with white patches and area of necrosis on inferior portion only. Possibly the stoma appliance was cut too tight and pressing on the stoma, will need to follow this. Will add antifungal coverage in case white patches represent fungal infection of stoma although I don't recall every having seen this. Pt still with intermittent low grade fevers on broad spectrum antibiotic coverage so antifungal coverage will broaden that coverage as well. O/W, CCM. 10/07/17: Not much change. No stoma output. KUB has not yet been done this morning. Labs OK. Still with low grade fevers. WBC normal, neutrophil count coming down. CT abd/pelvis yesterday with decreased small bowel distension but still with evidence of SBO, fluid collection in unchanged, no free fluid or air. 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 Will await KUB. Getting to the point where we will need to consider PICC line and starting TPN. May discuss laparoscopic exploration later today; will discuss with patient's mother. 10/08/17: 4 weeks s/p robotic LAR, POD#1 s/p ex-laparoscopy with RILEY and drainage of presacral fluid. Doing well. WBC normal. Will follow fevers/ vitals, etc. Place PICC today to start TPN. Await return of bowel function. 10/09/17: POD2 ex laparoscopy. Awaiting return of bowel function. +BS and minimal NGT output so may be soon. Plan to start TPN on Wednesday. Patient needs to ambulate. Continue abx for pneumonia. Will try to remove perez catheter tomorrow. 10/10/17: POD3 ex laparoscopy. Still awaiting return of bowel function. Clamp NGT till noon and remove if low residuals and in good position on KUB. continue abx, continue perez. dropped MIVF to 75cc/hr. Patient is not participating with therapy. Good bowel sounds so started bowel reg today, senna s/miralax. 10/11/17: POD4 ex laparoscopy. Awaiting bowel function. NGT removed yesterday. Plan PICC/TPN today. Will need swallow eval before taking orals, could not tolerate bowel reg yesterday. May attempt to remove perez today. Ordered labs. 10/12/17: POD#5. Stable. Started TPN yesterday. KUB with gas throughout colon , I suspect we'll start seeing gas in stoma bag in next day or two. Still some dilated small bowel but colon looks better on KUB. Perez out, patient seems to be urinating without problems. CCM until bowel function returns. 10/13/17: POD#6. Doing well but still no evidence of bowel function. Continue bowel rest and TPN. Await return of bowel function. COntinue lovenox and PPI. CCM. 10/14/17: POD#7. Doing well. DAQUAN removed yesterday. KUB continues to improve with gas to distal colon but still no activity from stoma yet. Continue bowel rest and TPN while we await return of bowel function. Continue lovenox and PPI. 10/15/17: POD#8. Doing well but now with mild fevers and intermittent tachycardia. He has no pain and his abdominal exam is benign. Will get CXR and check UA. He's not on abx other than diflucan at this point. Continue bowel rest and TPN until bowel function returns. Continue lovenox, PPI. Hopeful for return of bowel function soon. 10/16/17: POD#9. Appears to be at his baseline. Ambulated with PT yesterday> 100 feet. Urinary incomplete emptying- started on Flomax 10/15. Stoma was irrigated with Fleets Enema by Dr Claudio 10/15 with nothing more out than enema fluid. He has no pain and his abdominal exam is benign. 10/15/17 with T max 100.4- CXR was clear and UA was clear--both improved today. Off abx but remains on Diflucan for ronda appearance of the stoma noted earlier in hospitalization. Will do a trial of Erythromycin for potential bowel dysmotility (secondary to bipolar meds?) Continue bowel rest and TPN until bowel function returns. Continue Lovenox, PPI. 10/17/17: POD#10. Appears to be at his baseline. Ambulated with PT yesterday> 100 feet x 2; stronger. Urinary incomplete emptying- started on Flomax 10/15 and bladder scan was minimal for retained fluid. Started on po erythromycin for dysmotility. Stoma with large gas and small liquid out. Started on clear liquids today. He has no pain and his abdominal exam is benign. Off abx and diflucan now while undergoing trial of Erythromycin. Continue TPN until full bowel function/appetite returns. Continue Lovenox, PPI. 10/17/17 (Addendum @ 1220): Intermittent tachycardia. Peristomal hernia noted upon standing by nursing staff. This has been noted previously. No gas output or liquid output since 0600 this AM. Abdomen remains benign to my exam. Discussed care plan with Dr Claudio and will try another enema today. Will continue erythromycin as a potential pro motility agent. 10/18/17: POD#11. Worsened from GI standpoint. Now with increased abdominal distension with N/V this morning. I stopped erythromycin and backed off on his diet. He had a fever this morning to 101F. Will obtain saucedo-cultures including cultures from his PICC line. Will get CXR, empirically start primaxin. May need to repeat abdominal CT. Will see how he does today and what cultures show , etc reveal. 10/19/17: POD#12. Doing better after Perez, NG tube placed and abx restarted. KUB c/w worsened ileus vs SBO. Fevers to over 101F yesterday, no fevers overnight, HR down this morning. Will repeat CT abd/pelvis today. Continue bowel rest, NG tube, TPN. No growth from cultures yet. 10/20/17: POD#13. Still without bowel function. CT c/w SBO with loop in pelvis and continued small bowel thickening in pelvis. Presacral fluid collection is small. Parastomal hernia but no obstruction. Pt's been afebrile now back on Primaxin. Continue bowel rest, NG tube decompression, TPN. No growth in cultures. Perez out last evening. Will see how he's able to void bladder. Will get SBFT with water-soluble contrast today. 10/21/17: POD#14. Possibly doing better? Having some stool output in bag. NG not putting out too much. Will start NG clamp trials. SBFT yesterday revealed no obstruction but c/w adynamic ileus. Now starting to see gastrograffin in stoma bag. Will try erythromycin as promotility agent. 10/22/17: POD#15. Now with stoma output after gastrograffin SBFT but still with dilated loops of small bowel on KUB. Continue NG clamp trials today and follow KUB. Started erythromycin yesterday, will see how effective this is. Continue bowel rest, TPN, etc until GI function clearly returning to normal. 10/23/17: POD#16. Doing well but KUB still with unchanging dilated loops of small bowel. NG not putting much out and pt tolerating clamp trials so will d/ c NG but will continue bowel rest and TPN. Continue erythromycin. 10/24/17: POD#17. Doing well. NG removed yesterday. Pt doing well. Still with ileus as no gas in bag. Will recheck KUB tomorrow morning. Continue bowel rest. May need to discuss Kg with psychiatry to discuss his medication' s role in prolonged ileus. Continue TPN. 10/25/17: POD#18. Doing well. Now having some gas from stoma. KUB looks a little better this morning with decreased dilated loops of small bowel. Hospital is out of Erythromycin IV and it is on backorder. Will change to PO erythromycin for promotility effects. Will o/w continue bowel rest until more signs of bowel activity since the last time she showed signs of gas and stool from his stoma when he was advanced to clears he became severely distended and we needed to replace his NG tube and resume rx for ileus vs SBO. Continue TPN until tolerating regular diet. 10/26/17: POD#19. Doing well. Increasing gas in stoma bag. Still with dilated loops of small bowel on KUB. Will hold of on diet for now until KUB markedly better and stoma bag consistently with a lot of gas in it (it is intermittent currently) given his previous intolerance to clear diet a couple of weeks ago when he acutely redeveloped his ileus. Continue bowel rest and TPN, continue PO erythromycin for promotility. 10/27/17: POD#20. Doing well. Bowel function improving. Will get KUB tomorrow morning and if small bowel dilation resolved then will slowly advance diet. Continue erythromycin, bowel rest, TPN today. 10/28/17: POD#21. Doing well. No gas in bag this morning. KUB with improving but still dilated loops of small bowel. Will see how his stoma is functioning today. Will change stoma bag to a new one to get a sense of stool output today. Continue bowel rest, TPN, erythromycin today. If he's putting gas/ stool out as today progresses, may try clear diet later today. 10/29/17: POD#22. No stoma activity once again. No gas or stool in bag for last 36-48hrs. Will check KUB this morning. O/W, continue bowel rest, TPN, erythromycin. 10/30/17: POD#23. Still no activity from the stoma. Patient is not in distress and does not have a suspicious abdominal exam. Continue to monitor, continue TPN and NPO. Ambulate. 10/31/17: POD#24: No evidence of nausea, distension or pain in his abdomen. Some slight amount more stool but not a significant amount. Continue TPN and watchful waiting. Patient experienced a non injury fall yesterday with no obvious sequelae. 11/01/17: POD#25. Doing well. Exam benign. Will recheck KUB this morning but still not much stoma activity. Continue TPN. If KUB looks good then may start slowly advancing diet and add bowel regimen such as miralax. 11/02/17: POD#26. Doing well, tolerating small amounts of liquid PO intake and Miralax. Abdominal exam is benign. Continue TPN. Will recheck labs and KUB tomorrow. (2) Pneumonia Status: Resolved Assessment & Plan: Now Off Antibiotics; Being treated with albuterol for expiratory wheezing (3) Urinary retention with incomplete bladder emptying Status: Chronic Assessment & Plan: Started flomax, will follow response. (4) Bipolar disorder, unspecified Status: Chronic Assessment & Plan: On Home medications (5) ANEMIA IN OTHER CHRONIC DISEASES CLASSIFIED ELSEWHERE Status: Chronic Assessment & Plan: Anemia likely secondary to chronic disease; Monitor (6) Hyponatremia Status: Chronic Assessment & Plan: 10/16/17: Appears to be euvolemic; Can adjust IV Fluids; Monitor 10/17/17: Sodium 132; on fluid restriction. IVF changed to NS from 1/2NS. Monitor (7) Hypoalbuminemia due to protein-calorie malnutrition Status: Chronic Assessment & Plan: Albumin 2.0; On TPN; Remains NPO due to ileus or bowel dysmotility (8) Hypoxia Status: Resolved Assessment & Plan: Remains on 2 liters Nasal Canula; Encourage ambulation/ assisted; Attempt O2 weaning (9) Peristomal hernia Status: Chronic Assessment & Plan: Present on admission exam and CT scan. Does not appear to be the source of his SBO. Easily reducible. Monitor during this acute process but may need repair remotely. Condition Stable. Time Spent: < 30 min Exam Sepsis Risk: No Definite Risk Problem Qualifiers (1) Pneumonia: Pneumonia type: due to unspecified organism Laterality: unspecified laterality Lung location: unspecified part of lung Qualified Codes: J18.9 - Pneumonia, unspecified organism ZACH CLAUDIO MD Nov 02, 2017 08:27
[2017-11-02 09:11] VITALS: BP 105/66
[2017-11-02] MEDS: ENOXAPARIN 40 MG/0.4ML SYR SC SCH (09:18)
[2017-11-02] MEDS: PANTOPRAZOLE SOD 40 MG IV VIAL IVP SCH (09:18)
[2017-11-02] MEDS: POLYETHYLENE GLYCOL 17 GM PKT PO SCH (09:18)
[2017-11-02] MEDS: ERYTHROMYCIN 250 MG PO SCH ×3 (09:19→20:43)
[2017-11-02] MEDS: NS 0.9% IVPB SCH (09:32)
[2017-11-02] MEDS: VALPROATE SOD IVPB SCH (09:32)
[2017-11-02 11:07] VITALS: BP 103/70
[2017-11-02] MEDS: NS(*) 0.9% 250 ML BAG 250 ML IVPB PRN (11:24)
[2017-11-02 15:13] VITALS: BP 126/79
[2017-11-02] MEDS: FAT EMULSION 20% 250 ML BAG 250 ML IVPB SCH (18:02)
[2017-11-02 19:03] VITALS: BP 109/78
[2017-11-02] MEDS: VALPROATE SOD 100 MG/ML VIAL 1,000 MG in NS(*) 0.9% 100 ML BAG 100 ML IVPB SCH (20:43)
[2017-11-02] MEDS: OLANZapine ZYDIS ODT 5MG TABDP PO SCH (20:43)
[2017-11-02] MEDS: TAMSULOSIN HCL 0.4 MG CAP PO SCH (20:43)
[2017-11-02 23:07] VITALS: BP 117/58
[2017-11-03 02:51] VITALS: BP 105/70
[2017-11-03 05:52] LABS: PLATELET COUNT, AUTOMATED 479 K/uL (150-450)
--- NOTE | 2017-11-03 06:09 | RADIOLOGY IMAGING REPORT ---
FACILITY: [facility] - [place] PATIENT NAME: Matthew Roth : 1960 MR: [id number] V: [id number] EXAM DATE: ORDERING PHYSICIAN: ZACH CLAUDIO TECHNOLOGIST: Location: Patient: Matthew Roth : 1960 Visit/Account:[id number] Date of Sevice: 11/03/2017 KUB SINGLE VIEW ABDOMEN HISTORY: Ileus. COMPARISON: 11/01/2017 and studies dating to 02/19/2017. FINDINGS: A single AP supine view of the abdomen was obtained. There is a left lower quadrant ostomy. There is contrast within colon that has progressed downstream. There are gas filled small bowel loops that are more distended. No free air. There are pelvic phlebo liths. There are surgical sutures in the pelvis. IMPRESSION: 1. Greater distention of small bowel loops, suggesting worsening ileus. Report Dictated By: Serene Fuentes at 11/03/2017 6:04 AM Report E-Signed By: Serene Fuentes at 11/03/2017 6:06 AM WSN:[id number]
--- NOTE | 2017-11-03 07:12 | General Surgery Progress Note ---
Subjective Progress Notes Subjective No complaints. No pain or nausea. Physical Exam Vital Signs Date Time Temp Pulse Resp B/P (MAP) Pulse Ox O2 Delivery O2 Flow Rate FiO2 11/03/17 02:51 98.3 91 22 105/70 (82) 90 Room Air 11/02/17 09:11 2.0 General Appearance: Alert, Awake, No Acute Distress, Afebrile GI: Soft and Non-Tender (Stoma is pink with stool and small amount of gas in bag.) Extremities: Warm, Perfused Result Diagram: 11/03/1751111/03/17511 Assessment and Plan Problems: (1) Small bowel obstruction due to postoperative adhesions Status: Acute Assessment & Plan: 10/04/17: Admit, nothing by mouth, IV fluids, bowel rest, conservative management start with. We'll follow his x-rays and NG tube output as well as stoma output. We will hold off on any sort of surgery until he is about 6 weeks out from his initial resection surgery. Hopefully he will respond to conservative management. His last meal was yesterday and his mother reports that he has been eating reasonably well. If he is unable to eat and about 5 or 6 days then we will need to consider a PICC line and starting TPN. I have explained this plan to the patient's mother and she seems to understand and seems to be agreeable with this plan. 10/05/17: Continued small bowel obstruction clinically and radiographically based on his KUB this morning. Will continue conservative management with NG tube decompression, bowel rest, and IV fluids. Continue IV antibiotics for pneumonia. If he fails to get better in the next several days may consider diagnostic laparoscopy with drainage of the pelvic fluid collection and inspection of his small bowel. We'll let his small bowel decompress further before contemplating this. 10/06/17: Will give po gastrograffin and will get CT this afternoon. KUB a little better but not much function from stoma. May need to consider exploratory laparoscopy tomorrow if not getting better. Stoma with white patches and area of necrosis on inferior portion only. Possibly the stoma appliance was cut too tight and pressing on the stoma, will need to follow this. Will add antifungal coverage in case white patches represent fungal infection of stoma although I don't recall every having seen this. Pt still with intermittent low grade fevers on broad spectrum antibiotic coverage so antifungal coverage will broaden that coverage as well. O/W, CCM. 10/07/17: Not much change. No stoma output. KUB has not yet been done this morning. Labs OK. Still with low grade fevers. WBC normal, neutrophil count coming down. CT abd/pelvis yesterday with decreased small bowel distension but still with evidence of SBO, fluid collection in unchanged, no free fluid or air. 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 Will await KUB. Getting to the point where we will need to consider PICC line and starting TPN. May discuss laparoscopic exploration later today; will discuss with patient's mother. 10/08/17: 4 weeks s/p robotic LAR, POD#1 s/p ex-laparoscopy with RILEY and drainage of presacral fluid. Doing well. WBC normal. Will follow fevers/ vitals, etc. Place PICC today to start TPN. Await return of bowel function. 10/09/17: POD2 ex laparoscopy. Awaiting return of bowel function. +BS and minimal NGT output so may be soon. Plan to start TPN on Wednesday. Patient needs to ambulate. Continue abx for pneumonia. Will try to remove perez catheter tomorrow. 10/10/17: POD3 ex laparoscopy. Still awaiting return of bowel function. Clamp NGT till noon and remove if low residuals and in good position on KUB. continue abx, continue perez. dropped MIVF to 75cc/hr. Patient is not participating with therapy. Good bowel sounds so started bowel reg today, senna s/miralax. 10/11/17: POD4 ex laparoscopy. Awaiting bowel function. NGT removed yesterday. Plan PICC/TPN today. Will need swallow eval before taking orals, could not tolerate bowel reg yesterday. May attempt to remove perez today. Ordered labs. 10/12/17: POD#5. Stable. Started TPN yesterday. KUB with gas throughout colon , I suspect we'll start seeing gas in stoma bag in next day or two. Still some dilated small bowel but colon looks better on KUB. Perez out, patient seems to be urinating without problems. CCM until bowel function returns. 10/13/17: POD#6. Doing well but still no evidence of bowel function. Continue bowel rest and TPN. Await return of bowel function. COntinue lovenox and PPI. CCM. 10/14/17: POD#7. Doing well. DAQUAN removed yesterday. KUB continues to improve with gas to distal colon but still no activity from stoma yet. Continue bowel rest and TPN while we await return of bowel function. Continue lovenox and PPI. 10/15/17: POD#8. Doing well but now with mild fevers and intermittent tachycardia. He has no pain and his abdominal exam is benign. Will get CXR and check UA. He's not on abx other than diflucan at this point. Continue bowel rest and TPN until bowel function returns. Continue lovenox, PPI. Hopeful for return of bowel function soon. 10/16/17: POD#9. Appears to be at his baseline. Ambulated with PT yesterday> 100 feet. Urinary incomplete emptying- started on Flomax 10/15. Stoma was irrigated with Fleets Enema by Dr Claudio 10/15 with nothing more out than enema fluid. He has no pain and his abdominal exam is benign. 10/15/17 with T max 100.4- CXR was clear and UA was clear--both improved today. Off abx but remains on Diflucan for ronda appearance of the stoma noted earlier in hospitalization. Will do a trial of Erythromycin for potential bowel dysmotility (secondary to bipolar meds?) Continue bowel rest and TPN until bowel function returns. Continue Lovenox, PPI. 10/17/17: POD#10. Appears to be at his baseline. Ambulated with PT yesterday> 100 feet x 2; stronger. Urinary incomplete emptying- started on Flomax 10/15 and bladder scan was minimal for retained fluid. Started on po erythromycin for dysmotility. Stoma with large gas and small liquid out. Started on clear liquids today. He has no pain and his abdominal exam is benign. Off abx and diflucan now while undergoing trial of Erythromycin. Continue TPN until full bowel function/appetite returns. Continue Lovenox, PPI. 10/17/17 (Addendum @ 1220): Intermittent tachycardia. Peristomal hernia noted upon standing by nursing staff. This has been noted previously. No gas output or liquid output since 0600 this AM. Abdomen remains benign to my exam. Discussed care plan with Dr Claudio and will try another enema today. Will continue erythromycin as a potential pro motility agent. 10/18/17: POD#11. Worsened from GI standpoint. Now with increased abdominal distension with N/V this morning. I stopped erythromycin and backed off on his diet. He had a fever this morning to 101F. Will obtain saucedo-cultures including cultures from his PICC line. Will get CXR, empirically start primaxin. May need to repeat abdominal CT. Will see how he does today and what cultures show , etc reveal. 10/19/17: POD#12. Doing better after Perez, NG tube placed and abx restarted. KUB c/w worsened ileus vs SBO. Fevers to over 101F yesterday, no fevers overnight, HR down this morning. Will repeat CT abd/pelvis today. Continue bowel rest, NG tube, TPN. No growth from cultures yet. 10/20/17: POD#13. Still without bowel function. CT c/w SBO with loop in pelvis and continued small bowel thickening in pelvis. Presacral fluid collection is small. Parastomal hernia but no obstruction. Pt's been afebrile now back on Primaxin. Continue bowel rest, NG tube decompression, TPN. No growth in cultures. Perez out last evening. Will see how he's able to void bladder. Will get SBFT with water-soluble contrast today. 10/21/17: POD#14. Possibly doing better? Having some stool output in bag. NG not putting out too much. Will start NG clamp trials. SBFT yesterday revealed no obstruction but c/w adynamic ileus. Now starting to see gastrograffin in stoma bag. Will try erythromycin as promotility agent. 10/22/17: POD#15. Now with stoma output after gastrograffin SBFT but still with dilated loops of small bowel on KUB. Continue NG clamp trials today and follow KUB. Started erythromycin yesterday, will see how effective this is. Continue bowel rest, TPN, etc until GI function clearly returning to normal. 10/23/17: POD#16. Doing well but KUB still with unchanging dilated loops of small bowel. NG not putting much out and pt tolerating clamp trials so will d/ c NG but will continue bowel rest and TPN. Continue erythromycin. 10/24/17: POD#17. Doing well. NG removed yesterday. Pt doing well. Still with ileus as no gas in bag. Will recheck KUB tomorrow morning. Continue bowel rest. May need to discuss Kg with psychiatry to discuss his medication' s role in prolonged ileus. Continue TPN. 10/25/17: POD#18. Doing well. Now having some gas from stoma. KUB looks a little better this morning with decreased dilated loops of small bowel. Hospital is out of Erythromycin IV and it is on backorder. Will change to PO erythromycin for promotility effects. Will o/w continue bowel rest until more signs of bowel activity since the last time she showed signs of gas and stool from his stoma when he was advanced to clears he became severely distended and we needed to replace his NG tube and resume rx for ileus vs SBO. Continue TPN until tolerating regular diet. 10/26/17: POD#19. Doing well. Increasing gas in stoma bag. Still with dilated loops of small bowel on KUB. Will hold of on diet for now until KUB markedly better and stoma bag consistently with a lot of gas in it (it is intermittent currently) given his previous intolerance to clear diet a couple of weeks ago when he acutely redeveloped his ileus. Continue bowel rest and TPN, continue PO erythromycin for promotility. 10/27/17: POD#20. Doing well. Bowel function improving. Will get KUB tomorrow morning and if small bowel dilation resolved then will slowly advance diet. Continue erythromycin, bowel rest, TPN today. 10/28/17: POD#21. Doing well. No gas in bag this morning. KUB with improving but still dilated loops of small bowel. Will see how his stoma is functioning today. Will change stoma bag to a new one to get a sense of stool output today. Continue bowel rest, TPN, erythromycin today. If he's putting gas/ stool out as today progresses, may try clear diet later today. 10/29/17: POD#22. No stoma activity once again. No gas or stool in bag for last 36-48hrs. Will check KUB this morning. O/W, continue bowel rest, TPN, erythromycin. 10/30/17: POD#23. Still no activity from the stoma. Patient is not in distress and does not have a suspicious abdominal exam. Continue to monitor, continue TPN and NPO. Ambulate. 10/31/17: POD#24: No evidence of nausea, distension or pain in his abdomen. Some slight amount more stool but not a significant amount. Continue TPN and watchful waiting. Patient experienced a non injury fall yesterday with no obvious sequelae. 11/01/17: POD#25. Doing well. Exam benign. Will recheck KUB this morning but still not much stoma activity. Continue TPN. If KUB looks good then may start slowly advancing diet and add bowel regimen such as miralax. 11/02/17: POD#26. Doing well, tolerating small amounts of liquid PO intake and Miralax. Abdominal exam is benign. Continue TPN. Will recheck labs and KUB tomorrow. 11/03/17: POD#27. Doing well. Tolerating small amounts of liquid PO and Miralax. KUB with mildly increased small bowel dilation but clinically he seems to be doing well. Will recheck KUB tomorrow and if it's not getting progressively worse and Kg isn't clinically worsening then will consider SLOWLY advancing his diet. Continue TPN in the mean time. Will convert him to depakote PO this morning. (2) Pneumonia Status: Resolved Assessment & Plan: Now Off Antibiotics; Being treated with albuterol for expiratory wheezing (3) Urinary retention with incomplete bladder emptying Status: Chronic Assessment & Plan: Started flomax, will follow response. (4) Bipolar disorder, unspecified Status: Chronic Assessment & Plan: On Home medications (5) ANEMIA IN OTHER CHRONIC DISEASES CLASSIFIED ELSEWHERE Status: Chronic Assessment & Plan: Anemia likely secondary to chronic disease; Monitor (6) Hyponatremia Status: Chronic Assessment & Plan: 10/16/17: Appears to be euvolemic; Can adjust IV Fluids; Monitor 10/17/17: Sodium 132; on fluid restriction. IVF changed to NS from 1/2NS. Monitor (7) Hypoalbuminemia due to protein-calorie malnutrition Status: Chronic Assessment & Plan: Albumin 2.0; On TPN; Remains NPO due to ileus or bowel dysmotility (8) Hypoxia Status: Resolved Assessment & Plan: Remains on 2 liters Nasal [place]; Encourage ambulation/ assisted; Attempt O2 weaning (9) Peristomal hernia Status: Chronic Assessment & Plan: Present on admission exam and CT scan. Does not appear to be the source of his SBO. Easily reducible. Monitor during this acute process but may need repair remotely. Condition Stable. Time Spent: < 30 min Exam Sepsis Risk: No Definite Risk Problem Qualifiers (1) Pneumonia: Pneumonia type: due to unspecified organism Laterality: unspecified laterality Lung location: unspecified part of lung Qualified Codes: J18.9 - Pneumonia, unspecified organism ZACH CLAUDIO MD Nov 03, 2017 07:12
[2017-11-03] MEDS: ENOXAPARIN 40 MG/0.4ML SYR SC SCH (09:20)
[2017-11-03] MEDS: ERYTHROMYCIN 250 MG PO SCH ×3 (09:21→20:44)
[2017-11-03] MEDS: POLYETHYLENE GLYCOL 17 GM PKT PO SCH (09:21)
[2017-11-03] MEDS: DOCUSATE SODIUM 100 MG CAP PO SCH ×2 (09:21→20:43)
[2017-11-03] MEDS: DIVALPROEX SOD ER 500 MG TABSR PO SCH (09:21)
[2017-11-03] MEDS: FAMOTIDINE 20 MG TAB PO SCH ×2 (09:21→20:44)
[2017-11-03] MEDS: [UNRECOGNIZED DRUG - OTHER] IV SCH ×2 (09:56→18:16)
[2017-11-03 10:19] VITALS: BP 129/95
[2017-11-03 14:18] VITALS: BP 119/65
[2017-11-03] MEDS: ACETAMINOPHEN 325 MG TAB PO PRN (16:53)
[2017-11-03] MEDS: FAT EMULSION 20% 250 ML BAG 250 ML IVPB SCH (18:17)
[2017-11-03] MEDS: IBUPROFEN 600 MG TAB PO PRN (18:37)
[2017-11-03] MEDS: OLANZapine ZYDIS ODT 5MG TABDP PO SCH (20:44)
[2017-11-03] MEDS: TAMSULOSIN HCL 0.4 MG CAP PO SCH (20:44)
[2017-11-03] MEDS ORDERED: DIVALPROEX SOD ER 500 MG TABSR PO SCH (21:00)
[2017-11-04] MEDS: ACETAMINOPHEN 325 MG TAB PO PRN ×4 (00:01→22:16)
[2017-11-04 03:18] VITALS: BP 109/61
[2017-11-04] MEDS: IBUPROFEN 600 MG TAB PO PRN ×3 (03:22→19:38)
[2017-11-04] MEDS: [UNRECOGNIZED DRUG - OTHER] IV SCH ×3 (04:06→21:26)
--- NOTE | 2017-11-04 07:14 | RADIOLOGY IMAGING REPORT ---
FACILITY: [facility] [place] PATIENT NAME: Matthew Roth : 1960 MR: [id number] V: [id number] EXAM DATE: ORDERING PHYSICIAN: ZACH CLAUDIO TECHNOLOGIST: Location: [facility] Patient: Matthew Roth : 1960 Visit/Account:[id number] Date of Sevice: 11/04/2017 KUB SINGLE VIEW ABDOMEN HISTORY: Ileus COMPARISON: 11/03/2017 FINDINGS: Lower chest: Not covered Abdomen: No free intraperitoneal air. Multiple mildly distended small bowel loops have slightly decr eased. Prior oral contrast within the colon markedly decreased. IMPRESSION: 1. Mild decrease in distention the small bowel. 2. Interval passage of oral contrast through the colon Report Dictated By: Tod Fung MD at 11/04/2017 7:10 AM Report E-Signed By: Tod Fung MD at 11/04/2017 7:11 AM WSN:[id number]
[2017-11-04] MEDS: FAMOTIDINE 20 MG TAB PO SCH ×2 (08:35→20:42)
[2017-11-04] MEDS: ERYTHROMYCIN 250 MG PO SCH ×3 (08:35→20:43)
[2017-11-04] MEDS: ENOXAPARIN 40 MG/0.4ML SYR SC SCH (08:35)
[2017-11-04] MEDS: DIVALPROEX SOD ER 500 MG TABSR PO SCH ×2 (08:36→20:43)
[2017-11-04] MEDS: DOCUSATE SODIUM 100 MG CAP PO SCH ×2 (08:36→20:42)
[2017-11-04] MEDS: POLYETHYLENE GLYCOL 17 GM PKT PO SCH (08:37)
--- NOTE | 2017-11-04 10:51 | Medical Nutrition Therapy ---
Nutrition Anthropometrics Height (Inches): 67.00 Height (Calculated Centimeters: 170.919983 Weight (Pounds): 138 Weight (Calculated Kilograms): 62.681 BMI: 22.5 Sherman Nutrition Score: Probably Inadequate Sherman Nutrition Risk Score: 16 Dietary Referral Nutrition Risk Factors: Nutrition Risk Comment: Physical Findings Physical Appearance: WNR 22.3 Skin Appearance Skin Appearance: Edema Edema Location Modifier: Both Edema Location: Ankle Type of Edema: Degree of Edema: Gastrointestinal Symptoms GI Symtoms: Change in Bowel Pattern Tube Present: NG Bowel Sounds: Recent Bowel Pattern: Stool Characteristics: Brown, Soft Nutritional Diagnosis Nutritional Risk Acuity 1: TPN/PPN, GI Obstruction (SBO) Past Medical History: fecal incontinence, severe manic bipolar 1 disorder with psychotic behavior, psychogenic polydipsia, hyponatremia, OCD, rectal cancer, SBO, fatigue, weakness, hyperlipidemia, pneumonia, hx colon cancer, pevlic fluid collection Nutritional Acuity: 1-High Nutrition Diagnosis: Inadequate Food Intake Nutrition Etiology: Physiological Causes Nutrition Problem/Etiology/Sym: Inadequate oral intake related to physiological causes as evidence by nutrition support from TPN. Energy Requirement: 2515 ([place].Jeor X 1.3SF) Protein Requirement: 86 (1.3gm/kg) Fluid Requirement: 2000 (30ml/kg) Diet Type: Clear Liquids, TPN/PPN Nutrition Intervention: Nutrition support (TPN ) Diet Comment To RSA: OFFER NUTRITIONAL SUPPLEMENT Nutritional Support Current Enteral / Parental: TPN Rate: 125ml/hr Clinimex 5% AA , 15% dextose, + 20% lipid/12 hrs Current Duration: 24 Current Calories: 2130 Current Protein: 150 Current Lipids Calories: 500 Total Current Calories: 2630 Nutrition Monitoring & Eval Nutrition Goals: Eat 90-100% Meal RD Patient Assessment Time: [address] Assessment Type: RD Re-Assessment Patient Nutrition Acuity: 1-High Follow Up Date: Nov 06, 2017 Nutritional Comment: 10/05 Pt admitted for SBO and pneumonia. Pt is experiencing N/V, fever and abdominal pain. Pt is on NPO diet with meds only. Pt has a hx of colon cancer. Pt had a colostomy placed (09/10). Pt mother states the his bowel movements have in his bag have been more bulky. She states that he eats reasonably well. However, in doctor's note he had stated if pt does not eat within the next 5-6 days a PICC line and TPN would be placed. Mother agreed to this plan. Pt WBC was elevated and has reach WNR. Pt is on antibiotics for pneumonia. Pt has pelvic fluid collection and at risk for sepsis. Pt has low Na (130) and low H/H. Continue to monitor pt progress, labs and diet advancement. -MT 10/07 Pt continues on NPO diet, he is now on day three. Pt states that he wants water. Pt still has evidence of SBO and fluid collection. In the doctor's note it states pt is getting to the point where we will need to consider PICC line and starting TPN. Pt may benefit from 1800 ml TPN at 75ml/hr providing 1836 kcal ad 76g protein. This will meet 94% of the pt energy needs and 97% protein. Pt has low alb (2.3), no other concern labs at this time. Will continue to monitor pt progress and TPN order. -MT 10/08 Pt 4th day NPO. Per Dr notes, pt will start TPN today. Alb has declined to 2. Recommend final TPN rate of 75 ml/hr plus lipids to meet 109% est kcal and 97% est protein needs. BK 10/10 Low H/H, Alb 2.0, Low Ca+. TPN delayed until Wednesday (10/11), bowel sounds now present. Follow clinical progression. -DRT 10/12 Continues to have low H/H, low WBC, Na (127), alb (2.1) and elevated K+ (6.9). Pt started TPN (10/11). NG tube and perez removed. Pt did swallowing eval. No concern at this time. Will continue to monitor pt progress and diet advancement. -MT 10/15 No complaints. Pt has mild fever. Pt is still weak and experiencing tremors in both LE. DAQUAN removed yesterday (10/14). Colostomy bag continues to have gas in it, however no BM. Per doctor note continue bowel rest and TPN while we await return of bowel function. Pt urinary retention and pneumonia have been resolved. Pt Na is low (133). Pt is receiving IV Na PRN. Will continue to monitor pt progress, labs and encourage intake.-MT 10/18 Pt continues on TPN until bowel function returns to normal. Per doctor note, will do a trial of Erythromycin for potential bowel dysmotility. Did two enemas, got some liquids in colostomy bag. However doctors note states GI has gotten worse. Pt is distended with N/V. Pt had a fever yesterday (101) with elevated WAC (11.1) and blood glucose ( 128). Pt has had a 5# wt loss since 10/12 (146#) to now (141). Will continue to monitor pt progress, labs and diet advancement. -MT 10/20 Wt is down 10# since admission. Alb 2.5 is improving. Pt cont on TPN. Reassessed nutritional needs with est higher kcal and protein needs. Recommend increase TPN to 2000 ml/24 hr plus 250ml lipids 12 hrs to meet 95% est kcal and 98% est protein needs. Cont to monitor. BK 10/23 Pt cont on TPN with hypoactivbe bowel sounds. TPN was increased to 2000ml/24 hr to meet 95% est kcal and 98% est protein needs. Alb at 2.3 slowly increaseing . Wt is up 2#. Will cont to monitor. BK 10/25 Pt cont on TPN with hypoactivbe bowel sounds and maryanne from stoma. TPN is meeting 95% est kcal and 98% est protein needs. Alb at 2.4 is slowly increaseing . Wt is within usual range. Will cont to monitor. BK 10/28 Pt cont on TPN however on10/24 pharmacy changed to a 15% dextrose, 5% protein solution which provides 1420 kcal + 500 from lipid for total kcal of 2020 and 100 gm protein. This meets 80% est kcal and 116% est protein needs. Pt has lost wt from 144# on 10/24 to 133# on 10/27 with some of the wt loss probalby r/t fluids. However recommend increase TPN to 3000ml/day to provide 2630 kcal to meet 105% est kcal and 174% est protein needs to avoid futher wt loss. Alb declined to 2.3 so additional protein would be helpful. Recommend cont TPN until oral intake can meet nutr needs. BK 10/29 TPN increased to 3L/day of Clinimex 09/07. TPN is now meeting 105% est kcal needs, 174% est protein needs. Wt is back up 4#. Cont down 19% from admit wt. Alb 2.3. Cont to monitor. BK 11/01 Pt continues on TPN 3L/day Clinimex 09/07. Pt. has hypoactive bowel sounds, no gas from stoma. Wt. is fluctuating between 133-135# over past 4 days. Alb. has increased to 2.6. May advance diet with Miralax pending KUB. On 10/30 pt. was asleep, but talked with mother - will educate on high kcal/protein diet once off TPN. Will continue to monitor. RB 11/04 Diet advanced to clear liquids with TPN 3L/day Clinimex 09/07 to meet needs. Pt. seems to be tolerating well - ate 25% of clear tray at breakfast on 11/03. Flatus present and improving KUB function. Alb. now at 2.8, continues to trend upward. Wt. also fluctuating btw. 132-139# over the past week, now at 138#. On water restriction per note due to psychogenic polydipsia. BUN running slightly high (22) on 11/01 and 11/03 but WNL previously. Sodium levels slightly low at 134, avg. 132-136. Will continue to monitor progress, labs and diet advancement. RB AHMET ROA Nov 04, 2017 09:51
[2017-11-04] MEDS ORDERED: ALBUTEROL/IPRATROPIUM 3 ML NEB NEB PRN (12:05)
[2017-11-04 12:08] VITALS: BP 108/92
[2017-11-04] MEDS ORDERED: FLUSH 10 ML SYR IVP PRN (12:10)
[2017-11-04 15:54] VITALS: BP 115/80
[2017-11-04] MEDS: FAT EMULSION 20% 250 ML BAG 250 ML IVPB SCH (18:02)
[2017-11-04 20:17] VITALS: BP 109/81
[2017-11-04] MEDS: OLANZapine ZYDIS ODT 5MG TABDP PO SCH (20:42)
[2017-11-04] MEDS: TAMSULOSIN HCL 0.4 MG CAP PO SCH (20:45)
[2017-11-04 22:15] VITALS: BP 155/98
[2017-11-05] MEDS: IBUPROFEN 600 MG TAB PO PRN ×4 (01:43→18:09)
[2017-11-05] MEDS: ACETAMINOPHEN 325 MG TAB PO PRN ×3 (03:56→16:06)
[2017-11-05 05:54] LABS: PLATELET COUNT, AUTOMATED 458 K/uL (150-450)
[2017-11-05] MEDS: [UNRECOGNIZED DRUG - OTHER] IV SCH ×3 (06:07→22:36)
[2017-11-05 07:28] VITALS: BP 119/56
--- NOTE | 2017-11-05 08:11 | General Surgery Progress Note ---
Subjective Progress Notes Subjective No complaints. Physical Exam Vital Signs Date Time Temp Pulse Resp B/P (MAP) Pulse Ox O2 Delivery O2 Flow Rate FiO2 11/05/17 07:28 97.8 115 19 119/56 (77) 92 Nasal Cannula 2.5 General Appearance: Alert, Awake, No Acute Distress, Afebrile GI: Soft and Non-Tender (Stoma pink, gas and stool in bag) Extremities: Warm, Perfused Result Diagram: 11/05/17 0515 11/05/17 0515 Assessment and Plan Problems: (1) Small bowel obstruction due to postoperative adhesions Status: Acute Assessment & Plan: 10/04/17: Admit, nothing by mouth, IV fluids, bowel rest, conservative management start with. We'll follow his x-rays and NG tube output as well as stoma output. We will hold off on any sort of surgery until he is about 6 weeks out from his initial resection surgery. Hopefully he will respond to conservative management. His last meal was yesterday and his mother reports that he has been eating reasonably well. If he is unable to eat and about 5 or 6 days then we will need to consider a PICC line and starting TPN. I have explained this plan to the patient's mother and she seems to understand and seems to be agreeable with this plan. 10/05/17: Continued small bowel obstruction clinically and radiographically based on his KUB this morning. Will continue conservative management with NG tube decompression, bowel rest, and IV fluids. Continue IV antibiotics for pneumonia. If he fails to get better in the next several days may consider diagnostic laparoscopy with drainage of the pelvic fluid collection and inspection of his small bowel. We'll let his small bowel decompress further before contemplating this. 10/06/17: Will give po gastrograffin and will get CT this afternoon. KUB a little better but not much function from stoma. May need to consider exploratory laparoscopy tomorrow if not getting better. Stoma with white patches and area of necrosis on inferior portion only. Possibly the stoma appliance was cut too tight and pressing on the stoma, will need to follow this. Will add antifungal coverage in case white patches represent fungal infection of stoma although I don't recall every having seen this. Pt still with intermittent low grade fevers on broad spectrum antibiotic coverage so antifungal coverage will broaden that coverage as well. O/W, CCM. 10/07/17: Not much change. No stoma output. KUB has not yet been done this morning. Labs OK. Still with low grade fevers. WBC normal, neutrophil count coming down. CT abd/pelvis yesterday with decreased small bowel distension but still with evidence of SBO, fluid collection in unchanged, no free fluid or air. 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 Will await KUB. Getting to the point where we will need to consider PICC line and starting TPN. May discuss laparoscopic exploration later today; will discuss with patient's mother. 10/08/17: 4 weeks s/p robotic LAR, POD#1 s/p ex-laparoscopy with RILEY and drainage of presacral fluid. Doing well. WBC normal. Will follow fevers/ vitals, etc. Place PICC today to start TPN. Await return of bowel function. 10/09/17: POD2 ex laparoscopy. Awaiting return of bowel function. +BS and minimal NGT output so may be soon. Plan to start TPN on Wednesday. Patient needs to ambulate. Continue abx for pneumonia. Will try to remove perez catheter tomorrow. 10/10/17: POD3 ex laparoscopy. Still awaiting return of bowel function. Clamp NGT till noon and remove if low residuals and in good position on KUB. continue abx, continue perez. dropped MIVF to 75cc/hr. Patient is not participating with therapy. Good bowel sounds so started bowel reg today, senna s/miralax. 10/11/17: POD4 ex laparoscopy. Awaiting bowel function. NGT removed yesterday. Plan PICC/TPN today. Will need swallow eval before taking orals, could not tolerate bowel reg yesterday. May attempt to remove perez today. Ordered labs. 10/12/17: POD#5. Stable. Started TPN yesterday. KUB with gas throughout colon , I suspect we'll start seeing gas in stoma bag in next day or two. Still some dilated small bowel but colon looks better on KUB. Perez out, patient seems to be urinating without problems. CCM until bowel function returns. 10/13/17: POD#6. Doing well but still no evidence of bowel function. Continue bowel rest and TPN. Await return of bowel function. COntinue lovenox and PPI. CCM. 10/14/17: POD#7. Doing well. DAQUAN removed yesterday. KUB continues to improve with gas to distal colon but still no activity from stoma yet. Continue bowel rest and TPN while we await return of bowel function. Continue lovenox and PPI. 10/15/17: POD#8. Doing well but now with mild fevers and intermittent tachycardia. He has no pain and his abdominal exam is benign. Will get CXR and check UA. He's not on abx other than diflucan at this point. Continue bowel rest and TPN until bowel function returns. Continue lovenox, PPI. Hopeful for return of bowel function soon. 10/16/17: POD#9. Appears to be at his baseline. Ambulated with PT yesterday> 100 feet. Urinary incomplete emptying- started on Flomax 10/15. Stoma was irrigated with Fleets Enema by Dr Claudio 10/15 with nothing more out than enema fluid. He has no pain and his abdominal exam is benign. 10/15/17 with T max 100.4- CXR was clear and UA was clear--both improved today. Off abx but remains on Diflucan for ronda appearance of the stoma noted earlier in hospitalization. Will do a trial of Erythromycin for potential bowel dysmotility (secondary to bipolar meds?) Continue bowel rest and TPN until bowel function returns. Continue Lovenox, PPI. 10/17/17: POD#10. Appears to be at his baseline. Ambulated with PT yesterday> 100 feet x 2; stronger. Urinary incomplete emptying- started on Flomax 10/15 and bladder scan was minimal for retained fluid. Started on po erythromycin for dysmotility. Stoma with large gas and small liquid out. Started on clear liquids today. He has no pain and his abdominal exam is benign. Off abx and diflucan now while undergoing trial of Erythromycin. Continue TPN until full bowel function/appetite returns. Continue Lovenox, PPI. 10/17/17 (Addendum @ 1220): Intermittent tachycardia. Peristomal hernia noted upon standing by nursing staff. This has been noted previously. No gas output or liquid output since 0600 this AM. Abdomen remains benign to my exam. Discussed care plan with Dr Claudio and will try another enema today. Will continue erythromycin as a potential pro motility agent. 10/18/17: POD#11. Worsened from GI standpoint. Now with increased abdominal distension with N/V this morning. I stopped erythromycin and backed off on his diet. He had a fever this morning to 101F. Will obtain saucedo-cultures including cultures from his PICC line. Will get CXR, empirically start primaxin. May need to repeat abdominal CT. Will see how he does today and what cultures show , etc reveal. 10/19/17: POD#12. Doing better after Perez, NG tube placed and abx restarted. KUB c/w worsened ileus vs SBO. Fevers to over 101F yesterday, no fevers overnight, HR down this morning. Will repeat CT abd/pelvis today. Continue bowel rest, NG tube, TPN. No growth from cultures yet. 10/20/17: POD#13. Still without bowel function. CT c/w SBO with loop in pelvis and continued small bowel thickening in pelvis. Presacral fluid collection is small. Parastomal hernia but no obstruction. Pt's been afebrile now back on Primaxin. Continue bowel rest, NG tube decompression, TPN. No growth in cultures. Perez out last evening. Will see how he's able to void bladder. Will get SBFT with water-soluble contrast today. 10/21/17: POD#14. Possibly doing better? Having some stool output in bag. NG not putting out too much. Will start NG clamp trials. SBFT yesterday revealed no obstruction but c/w adynamic ileus. Now starting to see gastrograffin in stoma bag. Will try erythromycin as promotility agent. 10/22/17: POD#15. Now with stoma output after gastrograffin SBFT but still with dilated loops of small bowel on KUB. Continue NG clamp trials today and follow KUB. Started erythromycin yesterday, will see how effective this is. Continue bowel rest, TPN, etc until GI function clearly returning to normal. 10/23/17: POD#16. Doing well but KUB still with unchanging dilated loops of small bowel. NG not putting much out and pt tolerating clamp trials so will d/ c NG but will continue bowel rest and TPN. Continue erythromycin. 10/24/17: POD#17. Doing well. NG removed yesterday. Pt doing well. Still with ileus as no gas in bag. Will recheck KUB tomorrow morning. Continue bowel rest. May need to discuss Kg with psychiatry to discuss his medication' s role in prolonged ileus. Continue TPN. 10/25/17: POD#18. Doing well. Now having some gas from stoma. KUB looks a little better this morning with decreased dilated loops of small bowel. Hospital is out of Erythromycin IV and it is on backorder. Will change to PO erythromycin for promotility effects. Will o/w continue bowel rest until more signs of bowel activity since the last time she showed signs of gas and stool from his stoma when he was advanced to clears he became severely distended and we needed to replace his NG tube and resume rx for ileus vs SBO. Continue TPN until tolerating regular diet. 10/26/17: POD#19. Doing well. Increasing gas in stoma bag. Still with dilated loops of small bowel on KUB. Will hold of on diet for now until KUB markedly better and stoma bag consistently with a lot of gas in it (it is intermittent currently) given his previous intolerance to clear diet a couple of weeks ago when he acutely redeveloped his ileus. Continue bowel rest and TPN, continue PO erythromycin for promotility. 10/27/17: POD#20. Doing well. Bowel function improving. Will get KUB tomorrow morning and if small bowel dilation resolved then will slowly advance diet. Continue erythromycin, bowel rest, TPN today. 10/28/17: POD#21. Doing well. No gas in bag this morning. KUB with improving but still dilated loops of small bowel. Will see how his stoma is functioning today. Will change stoma bag to a new one to get a sense of stool output today. Continue bowel rest, TPN, erythromycin today. If he's putting gas/ stool out as today progresses, may try clear diet later today. 10/29/17: POD#22. No stoma activity once again. No gas or stool in bag for last 36-48hrs. Will check KUB this morning. O/W, continue bowel rest, TPN, erythromycin. 10/30/17: POD#23. Still no activity from the stoma. Patient is not in distress and does not have a suspicious abdominal exam. Continue to monitor, continue TPN and NPO. Ambulate. 10/31/17: POD#24: No evidence of nausea, distension or pain in his abdomen. Some slight amount more stool but not a significant amount. Continue TPN and watchful waiting. Patient experienced a non injury fall yesterday with no obvious sequelae. 11/01/17: POD#25. Doing well. Exam benign. Will recheck KUB this morning but still not much stoma activity. Continue TPN. If KUB looks good then may start slowly advancing diet and add bowel regimen such as miralax. 11/02/17: POD#26. Doing well, tolerating small amounts of liquid PO intake and Miralax. Abdominal exam is benign. Continue TPN. Will recheck labs and KUB tomorrow. 11/03/17: POD#27. Doing well. Tolerating small amounts of liquid PO and Miralax. KUB with mildly increased small bowel dilation but clinically he seems to be doing well. Will recheck KUB tomorrow and if it's not getting progressively worse and Kg isn't clinically worsening then will consider SLOWLY advancing his diet. Continue TPN in the mean time. Will convert him to depakote PO this morning. 11/04/17: POD#28. Doing well. Showing signs of improving bowel function and KUB with decreased SB dilation. Doing well on Miralax and colace. Will advance to full clear liquid diet without volume restrictions except will need to restrict his water intake due to his h/o psychogenic polydipsia. If he tolerates this today then will try full liquid diet tomorrow. Will continue TPN until tolerating regular diet. 11/05/17: POD#29. Doing well. Bowel function seems to be improving. Will start full liquid diet today. Continue fluid restriction. Continue Miralax and colace. Continue TPN until tolerating regular diet. (2) Pneumonia Status: Resolved Assessment & Plan: Now Off Antibiotics; Being treated with albuterol for expiratory wheezing (3) Urinary retention with incomplete bladder emptying Status: Chronic Assessment & Plan: Started flomax, will follow response. (4) Bipolar disorder, unspecified Status: Chronic Assessment & Plan: On Home medications (5) ANEMIA IN OTHER CHRONIC DISEASES CLASSIFIED ELSEWHERE Status: Chronic Assessment & Plan: Anemia likely secondary to chronic disease; Monitor (6) Hyponatremia Status: Chronic Assessment & Plan: 10/16/17: Appears to be euvolemic; Can adjust IV Fluids; Monitor 10/17/17: Sodium 132; on fluid restriction. IVF changed to NS from 1/2NS. Monitor (7) Hypoalbuminemia due to protein-calorie malnutrition Status: Chronic Assessment & Plan: Albumin 2.0; On TPN; Remains NPO due to ileus or bowel dysmotility (8) Hypoxia Status: Resolved Assessment & Plan: Remains on 2 liters Nasal Canula; Encourage ambulation/ assisted; Attempt O2 weaning (9) Peristomal hernia Status: Chronic Assessment & Plan: Present on admission exam and CT scan. Does not appear to be the source of his SBO. Easily reducible. Monitor during this acute process but may need repair remotely. Condition Stable. Time Spent: < 30 min Exam Sepsis Risk: Sepsis Risk Problem Qualifiers (1) Pneumonia: Pneumonia type: due to unspecified organism Laterality: unspecified laterality Lung location: unspecified part of lung Qualified Codes: J18.9 - Pneumonia, unspecified organism ZACH CLAUDIO MD Nov 05, 2017 08:11
[2017-11-05] MEDS: DOCUSATE SODIUM 100 MG CAP PO SCH ×2 (09:10→20:38)
[2017-11-05] MEDS: FAMOTIDINE 20 MG TAB PO SCH ×2 (09:11→20:38)
[2017-11-05] MEDS: POLYETHYLENE GLYCOL 17 GM PKT PO SCH (09:11)
[2017-11-05] MEDS: DIVALPROEX SOD ER 500 MG TABSR PO SCH ×2 (09:11→20:38)
[2017-11-05] MEDS: ERYTHROMYCIN 250 MG PO SCH ×2 (09:11→14:17)
[2017-11-05] MEDS: ENOXAPARIN 40 MG/0.4ML SYR SC SCH (09:12)
--- NOTE | 2017-11-05 15:10 | Medical Nutrition Therapy ---
Nutrition Anthropometrics Height (Inches): 67.00 Height (Calculated Centimeters: 170.146989 Weight (Pounds): 139 Weight (Calculated Kilograms): 63.134 BMI: 22.5 Sherman Nutrition Score: Very Poor Sherman Nutrition Risk Score: 18 Dietary Referral Nutrition Risk Factors: Nutrition Risk Comment: Nutritional Diagnosis Nutritional Risk Acuity 1: TPN/PPN, GI Obstruction (SBO) Nutritional Risk Acuity 3: Colostomy Past Medical History: fecal incontinence, severe manic bipolar 1 disorder with psychotic behavior, psychogenic polydipsia, hyponatremia, OCD, rectal cancer, SBO, fatigue, weakness, hyperlipidemia, pneumonia, hx colon cancer, pevlic fluid collection Nutritional Acuity: 1-High Nutrition Diagnosis: Inadequate Food Intake Nutrition Etiology: Physiological Causes Nutrition Problem/Etiology/Sym: Inadequate oral intake related to physiological causes as evidence by nutrition support from TPN. Energy Requirement: 2515 ([place] X 1.3SF) Protein Requirement: 86 (1.3gm/kg) Fluid Requirement: 2000 (30ml/kg) Diet Type: Fluid Restricted, Medical Liquid/GI soft, TPN/PPN Nutrition Intervention: Nutrition support (TPN ) Additional Diet Restrictions: DIETARY TO PROVIDE NO MORE THAN 240ML/MEAL Diet Comment To RSA: MASH POTATOES, HOT CERAL, PUDDING, TOAST/JELLY, YOGURT DON'T COUNT LIQUIDS Nutritional Support Current Enteral / Parental: TPN Rate: 125ml/hr Clinimex 5% AA , 15% dextose, + 20% lipid/12 hrs Current Duration: 24 Current Calories: 2130 Current Protein: 150 Current Lipids Calories: 500 Total Current Calories: 2630 Nutrition Monitoring & Eval Nutrition Goals: Eat 75-100% Meal, Fluid Restrictions RD Patient Assessment Time: [address] Assessment Type: RD Re-Assessment Patient Nutrition Acuity: 1-High Follow Up Date: Nov 08, 2017 Nutritional Comment: 10/05 Pt admitted for SBO and pneumonia. Pt is experiencing N/V, fever and abdominal pain. Pt is on NPO diet with meds only. Pt has a hx of colon cancer. Pt had a colostomy placed (09/10). Pt mother states the his bowel movements have in his bag have been more bulky. She states that he eats reasonably well. However, in doctor's note he had stated if pt does not eat within the next 5-6 days a PICC line and TPN would be placed. Mother agreed to this plan. Pt WBC was elevated and has reach WNR. Pt is on antibiotics for pneumonia. Pt has pelvic fluid collection and at risk for sepsis. Pt has low Na (130) and low H/H. Continue to monitor pt progress, labs and diet advancement. -MT 10/07 Pt continues on NPO diet, he is now on day three. Pt states that he wants water. Pt still has evidence of SBO and fluid collection. In the doctor's note it states pt is getting to the point where we will need to consider PICC line and starting TPN. Pt may benefit from 1800 ml TPN at 75ml/hr providing 1836 kcal ad 76g protein. This will meet 94% of the pt energy needs and 97% protein. Pt has low alb (2.3), no other concern labs at this time. Will continue to monitor pt progress and TPN order. -MT 10/08 Pt 4th day NPO. Per Dr notes, pt will start TPN today. Alb has declined to 2. Recommend final TPN rate of 75 ml/hr plus lipids to meet 109% est kcal and 97% est protein needs. BK 10/10 Low H/H, Alb 2.0, Low Ca+. TPN delayed until Wednesday (10/11), bowel sounds now present. Follow clinical progression. -DRT 10/12 Continues to have low H/H, low WBC, Na (127), alb (2.1) and elevated K+ (6.9). Pt started TPN (10/11). NG tube and perez removed. Pt did swallowing eval. No concern at this time. Will continue to monitor pt progress and diet advancement. -MT 10/15 No complaints. Pt has mild fever. Pt is still weak and experiencing tremors in both LE. DAQUAN removed yesterday (10/14). Colostomy bag continues to have gas in it, however no BM. Per doctor note continue bowel rest and TPN while we await return of bowel function. Pt urinary retention and pneumonia have been resolved. Pt Na is low (133). Pt is receiving IV Na PRN. Will continue to monitor pt progress, labs and encourage intake.-MT 10/18 Pt continues on TPN until bowel function returns to normal. Per doctor note, will do a trial of Erythromycin for potential bowel dysmotility. Did two enemas, got some liquids in colostomy bag. However doctors note states GI has gotten worse. Pt is distended with N/V. Pt had a fever yesterday (101) with elevated WAC (11.1) and blood glucose ( 128). Pt has had a 5# wt loss since 10/12 (146#) to now (141). Will continue to monitor pt progress, labs and diet advancement. -MT 10/20 Wt is down 10# since admission. Alb 2.5 is improving. Pt cont on TPN. Reassessed nutritional needs with est higher kcal and protein needs. Recommend increase TPN to 2000 ml/24 hr plus 250ml lipids 12 hrs to meet 95% est kcal and 98% est protein needs. Cont to monitor. BK 10/23 Pt cont on TPN with hypoactivbe bowel sounds. TPN was increased to 2000ml/24 hr to meet 95% est kcal and 98% est protein needs. Alb at 2.3 slowly increaseing . Wt is up 2#. Will cont to monitor. BK 10/25 Pt cont on TPN with hypoactivbe bowel sounds and maryanne from stoma. TPN is meeting 95% est kcal and 98% est protein needs. Alb at 2.4 is slowly increaseing . Wt is within usual range. Will cont to monitor. BK 10/28 Pt cont on TPN however on10/24 pharmacy changed to a 15% dextrose, 5% protein solution which provides 1420 kcal + 500 from lipid for total kcal of 2020 and 100 gm protein. This meets 80% est kcal and 116% est protein needs. Pt has lost wt from 144# on 10/24 to 133# on 10/27 with some of the wt loss probalby r/t fluids. However recommend increase TPN to 3000ml/day to provide 2630 kcal to meet 105% est kcal and 174% est protein needs to avoid futher wt loss. Alb declined to 2.3 so additional protein would be helpful. Recommend cont TPN until oral intake can meet nutr needs. BK 10/29 TPN increased to 3L/day of Clinimex 09/07. TPN is now meeting 105% est kcal needs, 174% est protein needs. Wt is back up 4#. Cont down 19% from admit wt. Alb 2.3. Cont to monitor. BK 11/01 Pt continues on TPN 3L/day Clinimex 09/07. Pt. has hypoactive bowel sounds, no gas from stoma. Wt. is fluctuating between 133-135# over past 4 days. Alb. has increased to 2.6. May advance diet with Miralax pending KUB. On 10/30 pt. was asleep, but talked with mother - will educate on high kcal/protein diet once off TPN. Will continue to monitor. RB 11/04 Diet advanced to clear liquids with TPN 3L/day Clinimex 09/07 to meet needs. Pt. seems to be tolerating well - ate 25% of clear tray at breakfast on 11/03. Flatus present and improving KUB function. Alb. now at 2.8, continues to trend upward. Wt. also fluctuating btw. 132-139# over the past week, now at 138#. On water restriction per note due to psychogenic polydipsia. BUN running slightly high (22) on 11/01 and 11/03 but WNL previously. Sodium levels slightly low at 134, avg. 132-136. Will continue to monitor progress, labs and diet advancement. RB 11/05 Diet advanced to med liquid/GI soft. No intake reported at this time. Nursing providing foods. Wt up slightly 10 139# but within the range he has been fluctuating. Pt cont on TPN which is meeting nutritional needs. Will cont to monitor. JOE PADILLA Nov 05, 2017 14:00
[2017-11-05 15:48] VITALS: BP 122/90
--- NOTE | 2017-11-05 16:07 | RADIOLOGY IMAGING REPORT ---
FACILITY: [facility] [place]IENT NAME: Matthew Roth : 1960 MR: [id number] V: [id number] EXAM DATE: ORDERING PHYSICIAN: ZACH CLAUDIO TECHNOLOGIST: Location: [facility] Patient: Matthew Roth : 1960 Visit/Account:[id number] Date of Sevice: 11/05/2017 KUB SINGLE VIEW ABDOMEN INDICATION: Nausea and stomach pain COMPARISON: Similar study from 11/04/2017 FINDINGS: Prominent air-filled loops of small bowel large bowel throughout the abdomen and pelvis again seen govea ggesting prominent adynamic ileus. Phleboliths seen within the lower pelvis. IMPRESSION: Persistent dilated air-filled loops of small and large bowel suggest adynamic ileus. Report Dictated By: Filemon Obrien MD at 11/05/2017 4:02 PM Report E-Signed By: Filemon Obrien MD at 11/05/2017 4:04 PM [id number]:[email or web address]
[2017-11-05] MEDS: FAT EMULSION 20% 250 ML BAG 250 ML IVPB SCH (18:09)
[2017-11-05 19:25] VITALS: BP 118/78
[2017-11-05] MEDS: TAMSULOSIN HCL 0.4 MG CAP PO SCH (19:45)
[2017-11-05] MEDS: OLANZapine ZYDIS ODT 5MG TABDP PO SCH (20:39)
[2017-11-05] MEDS: ACETAMINOPHEN(*)1000 MG/100 ML 100 ML IVPB PRN (22:53)
[2017-11-05] MEDS: KETOROLAC 30 MG/ML VIAL IVP PRN (23:46)
[2017-11-06 03:30] VITALS: BP 144/90
--- NOTE | 2017-11-06 05:40 | RADIOLOGY IMAGING REPORT ---
FACILITY: [facility] PATIENT NAME: Matthew Roth : 1960 MR: [id number] V: [id number] EXAM DATE: ORDERING PHYSICIAN: ZACH CLAUDIO TECHNOLOGIST: Location: [facility] - [place], [place] Patient: Matthew Roth : 1960 Visit/Account:[id number] Date of Sevice: 11/06/2017 INDICATION: . Evaluate ileus DATE: 11/06/2017 5:36 AM. TECHNIQUE: KUB SINGLE VIEW ABDOMEN COMPARISON: Abdomen radiographs November 05, 2017 FINDINGS: Multiple small bowel loops remain dilated. IMPRESSION: Persistent dilation of multiple small bowel loops. Report Dictated By: Ja Gardner MD at 11/06/2017 5:36 AM Report E-Signed By: Ja Gardner MD at 11/06/2017 5:36 AM WSN:[id number]
[2017-11-06] MEDS: ACETAMINOPHEN(*)1000 MG/100 ML 100 ML IVPB PRN ×3 (05:45→18:19)
[2017-11-06] MEDS: [UNRECOGNIZED DRUG - OTHER] IV SCH ×4 (06:11→22:53)
[2017-11-06 07:06] LABS: PLATELET COUNT, AUTOMATED 420 K/uL (150-450)
[2017-11-06 08:58] VITALS: BP 117/73
[2017-11-06] MEDS: FAMOTIDINE 20 MG TAB PO SCH ×2 (09:24→20:44)
[2017-11-06] MEDS: DIVALPROEX SOD ER 500 MG TABSR PO SCH ×2 (09:24→20:44)
[2017-11-06] MEDS: POLYETHYLENE GLYCOL 17 GM PKT PO SCH (09:24)
[2017-11-06] MEDS: DOCUSATE SODIUM 100 MG CAP PO SCH ×2 (09:24→20:43)
[2017-11-06] MEDS: ENOXAPARIN 40 MG/0.4ML SYR SC SCH (09:25)
[2017-11-06] MEDS: KETOROLAC 30 MG/ML VIAL IVP PRN ×2 (09:25→15:30)
--- NOTE | 2017-11-06 09:57 | General Surgery Progress Note ---
Subjective Progress Notes Subjective minimal output from colostomy pain controlled well pt interactive Physical Exam Vital Signs Date Time Temp Pulse Resp B/P (MAP) Pulse Ox O2 Delivery O2 Flow Rate FiO2 11/06/17 09:33 93 Room Air 11/06/17 08:58 98.2 116 22 117/73 (88) 11/06/17 03:30 2.5 Intake and Output 11/07/17 07:00 Output Total 220 ml Balance -220 ml Output Urine Total 220 ml # Voids 2 General Appearance: Awake, No Acute Distress, Afebrile ENT: Normal GI: Soft and Non-Tender, Other (colostomy healthy) Result Diagram: 11/06/17 0659 11/06/17 0659 Assessment and Plan Problems: (1) Small bowel obstruction due to postoperative adhesions Status: Acute Assessment & Plan: 10/04/17: Admit, nothing by mouth, IV fluids, bowel rest, conservative management start with. We'll follow his x-rays and NG tube output as well as stoma output. We will hold off on any sort of surgery until he is about 6 weeks out from his initial resection surgery. Hopefully he will respond to conservative management. His last meal was yesterday and his mother reports that he has been eating reasonably well. If he is unable to eat and about 5 or 6 days then we will need to consider a PICC line and starting TPN. I have explained this plan to the patient's mother and she seems to understand and seems to be agreeable with this plan. 10/05/17: Continued small bowel obstruction clinically and radiographically based on his KUB this morning. Will continue conservative management with NG tube decompression, bowel rest, and IV fluids. Continue IV antibiotics for pneumonia. If he fails to get better in the next several days may consider diagnostic laparoscopy with drainage of the pelvic fluid collection and inspection of his small bowel. We'll let his small bowel decompress further before contemplating this. 10/06/17: Will give po gastrograffin and will get CT this afternoon. KUB a little better but not much function from stoma. May need to consider exploratory laparoscopy tomorrow if not getting better. Stoma with white patches and area of necrosis on inferior portion only. Possibly the stoma appliance was cut too tight and pressing on the stoma, will need to follow this. Will add antifungal coverage in case white patches represent fungal infection of stoma although I don't recall every having seen this. Pt still with intermittent low grade fevers on broad spectrum antibiotic coverage so antifungal coverage will broaden that coverage as well. O/W, CCM. 10/07/17: Not much change. No stoma output. KUB has not yet been done this morning. Labs OK. Still with low grade fevers. WBC normal, neutrophil count coming down. CT abd/pelvis yesterday with decreased small bowel distension but still with evidence of SBO, fluid collection in unchanged, no free fluid or air. 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 Will await KUB. Getting to the point where we will need to consider PICC line and starting TPN. May discuss laparoscopic exploration later today; will discuss with patient's mother. 10/08/17: 4 weeks s/p robotic LAR, POD#1 s/p ex-laparoscopy with RILEY and drainage of presacral fluid. Doing well. WBC normal. Will follow fevers/ vitals, etc. Place PICC today to start TPN. Await return of bowel function. 10/09/17: POD2 ex laparoscopy. Awaiting return of bowel function. +BS and minimal NGT output so may be soon. Plan to start TPN on Wednesday. Patient needs to ambulate. Continue abx for pneumonia. Will try to remove perez catheter tomorrow. 10/10/17: POD3 ex laparoscopy. Still awaiting return of bowel function. Clamp NGT till noon and remove if low residuals and in good position on KUB. continue abx, continue perez. dropped MIVF to 75cc/hr. Patient is not participating with therapy. Good bowel sounds so started bowel reg today, senna s/miralax. 10/11/17: POD4 ex laparoscopy. Awaiting bowel function. NGT removed yesterday. Plan PICC/TPN today. Will need swallow eval before taking orals, could not tolerate bowel reg yesterday. May attempt to remove perez today. Ordered labs. 10/12/17: POD#5. Stable. Started TPN yesterday. KUB with gas throughout colon , I suspect we'll start seeing gas in stoma bag in next day or two. Still some dilated small bowel but colon looks better on KUB. Perez out, patient seems to be urinating without problems. CCM until bowel function returns. 10/13/17: POD#6. Doing well but still no evidence of bowel function. Continue bowel rest and TPN. Await return of bowel function. COntinue lovenox and PPI. CCM. 10/14/17: POD#7. Doing well. DAQUAN removed yesterday. KUB continues to improve with gas to distal colon but still no activity from stoma yet. Continue bowel rest and TPN while we await return of bowel function. Continue lovenox and PPI. 10/15/17: POD#8. Doing well but now with mild fevers and intermittent tachycardia. He has no pain and his abdominal exam is benign. Will get CXR and check UA. He's not on abx other than diflucan at this point. Continue bowel rest and TPN until bowel function returns. Continue lovenox, PPI. Hopeful for return of bowel function soon. 10/16/17: POD#9. Appears to be at his baseline. Ambulated with PT yesterday> 100 feet. Urinary incomplete emptying- started on Flomax 10/15. Stoma was irrigated with Fleets Enema by Dr Roque 10/15 with nothing more out than enema fluid. He has no pain and his abdominal exam is benign. 10/15/17 with T max 100.4- CXR was clear and UA was clear--both improved today. Off abx but remains on Diflucan for rodna appearance of the stoma noted earlier in hospitalization. Will do a trial of Erythromycin for potential bowel dysmotility (secondary to bipolar meds?) Continue bowel rest and TPN until bowel function returns. Continue Lovenox, PPI. 10/17/17: POD#10. Appears to be at his baseline. Ambulated with PT yesterday> 100 feet x 2; stronger. Urinary incomplete emptying- started on Flomax 10/15 and bladder scan was minimal for retained fluid. Started on po erythromycin for dysmotility. Stoma with large gas and small liquid out. Started on clear liquids today. He has no pain and his abdominal exam is benign. Off abx and diflucan now while undergoing trial of Erythromycin. Continue TPN until full bowel function/appetite returns. Continue Lovenox, PPI. 10/17/17 (Addendum @ 1220): Intermittent tachycardia. Peristomal hernia noted upon standing by nursing staff. This has been noted previously. No gas output or liquid output since 0600 this AM. Abdomen remains benign to my exam. Discussed care plan with Dr Roque and will try another enema today. Will continue erythromycin as a potential pro motility agent. 10/18/17: POD#11. Worsened from GI standpoint. Now with increased abdominal distension with N/V this morning. I stopped erythromycin and backed off on his diet. He had a fever this morning to 101F. Will obtain saucedo-cultures including cultures from his PICC line. Will get CXR, empirically start primaxin. May need to repeat abdominal CT. Will see how he does today and what cultures show , etc reveal. 10/19/17: POD#12. Doing better after Perez, NG tube placed and abx restarted. KUB c/w worsened ileus vs SBO. Fevers to over 101F yesterday, no fevers overnight, HR down this morning. Will repeat CT abd/pelvis today. Continue bowel rest, NG tube, TPN. No growth from cultures yet. 10/20/17: POD#13. Still without bowel function. CT c/w SBO with loop in pelvis and continued small bowel thickening in pelvis. Presacral fluid collection is small. Parastomal hernia but no obstruction. Pt's been afebrile now back on Primaxin. Continue bowel rest, NG tube decompression, TPN. No growth in cultures. Perez out last evening. Will see how he's able to void bladder. Will get SBFT with water-soluble contrast today. 10/21/17: POD#14. Possibly doing better? Having some stool output in bag. NG not putting out too much. Will start NG clamp trials. SBFT yesterday revealed no obstruction but c/w adynamic ileus. Now starting to see gastrograffin in stoma bag. Will try erythromycin as promotility agent. 10/22/17: POD#15. Now with stoma output after gastrograffin SBFT but still with dilated loops of small bowel on KUB. Continue NG clamp trials today and follow KUB. Started erythromycin yesterday, will see how effective this is. Continue bowel rest, TPN, etc until GI function clearly returning to normal. 10/23/17: POD#16. Doing well but KUB still with unchanging dilated loops of small bowel. NG not putting much out and pt tolerating clamp trials so will d/ c NG but will continue bowel rest and TPN. Continue erythromycin. 10/24/17: POD#17. Doing well. NG removed yesterday. Pt doing well. Still with ileus as no gas in bag. Will recheck KUB tomorrow morning. Continue bowel rest. May need to discuss Kg with psychiatry to discuss his medication' s role in prolonged ileus. Continue TPN. 10/25/17: POD#18. Doing well. Now having some gas from stoma. KUB looks a little better this morning with decreased dilated loops of small bowel. Hospital is out of Erythromycin IV and it is on backorder. Will change to PO erythromycin for promotility effects. Will o/w continue bowel rest until more signs of bowel activity since the last time she showed signs of gas and stool from his stoma when he was advanced to clears he became severely distended and we needed to replace his NG tube and resume rx for ileus vs SBO. Continue TPN until tolerating regular diet. 10/26/17: POD#19. Doing well. Increasing gas in stoma bag. Still with dilated loops of small bowel on KUB. Will hold of on diet for now until KUB markedly better and stoma bag consistently with a lot of gas in it (it is intermittent currently) given his previous intolerance to clear diet a couple of weeks ago when he acutely redeveloped his ileus. Continue bowel rest and TPN, continue PO erythromycin for promotility. 10/27/17: POD#20. Doing well. Bowel function improving. Will get KUB tomorrow morning and if small bowel dilation resolved then will slowly advance diet. Continue erythromycin, bowel rest, TPN today. 10/28/17: POD#21. Doing well. No gas in bag this morning. KUB with improving but still dilated loops of small bowel. Will see how his stoma is functioning today. Will change stoma bag to a new one to get a sense of stool output today. Continue bowel rest, TPN, erythromycin today. If he's putting gas/ stool out as today progresses, may try clear diet later today. 10/29/17: POD#22. No stoma activity once again. No gas or stool in bag for last 36-48hrs. Will check KUB this morning. O/W, continue bowel rest, TPN, erythromycin. 10/30/17: POD#23. Still no activity from the stoma. Patient is not in distress and does not have a suspicious abdominal exam. Continue to monitor, continue TPN and NPO. Ambulate. 10/31/17: POD#24: No evidence of nausea, distension or pain in his abdomen. Some slight amount more stool but not a significant amount. Continue TPN and watchful waiting. Patient experienced a non injury fall yesterday with no obvious sequelae. 11/01/17: POD#25. Doing well. Exam benign. Will recheck KUB this morning but still not much stoma activity. Continue TPN. If KUB looks good then may start slowly advancing diet and add bowel regimen such as miralax. 11/02/17: POD#26. Doing well, tolerating small amounts of liquid PO intake and Miralax. Abdominal exam is benign. Continue TPN. Will recheck labs and KUB tomorrow. 11/03/17: POD#27. Doing well. Tolerating small amounts of liquid PO and Miralax. KUB with mildly increased small bowel dilation but clinically he seems to be doing well. Will recheck KUB tomorrow and if it's not getting progressively worse and Kg isn't clinically worsening then will consider SLOWLY advancing his diet. Continue TPN in the mean time. Will convert him to depakote PO this morning. 11/04/17: POD#28. Doing well. Showing signs of improving bowel function and KUB with decreased SB dilation. Doing well on Miralax and colace. Will advance to full clear liquid diet without volume restrictions except will need to restrict his water intake due to his h/o psychogenic polydipsia. If he tolerates this today then will try full liquid diet tomorrow. Will continue TPN until tolerating regular diet. 11/05/17: POD#29. Doing well. Bowel function seems to be improving. Will start full liquid diet today. Continue fluid restriction. Continue Miralax and colace. Continue TPN until tolerating regular diet. 11/06/17: POD#30. Doing well. Had about 50cc out from colostomy. Made NPO yesterday, continue TPN. (2) Pneumonia Status: Resolved Assessment & Plan: Now Off Antibiotics; Being treated with albuterol for expiratory wheezing (3) Urinary retention with incomplete bladder emptying Status: Chronic Assessment & Plan: Started flomax, will follow response. (4) Bipolar disorder, unspecified Status: Chronic Assessment & Plan: On Home medications (5) ANEMIA IN OTHER CHRONIC DISEASES CLASSIFIED ELSEWHERE Status: Chronic Assessment & Plan: Anemia likely secondary to chronic disease; Monitor (6) Hyponatremia Status: Chronic Assessment & Plan: 10/16/17: Appears to be euvolemic; Can adjust IV Fluids; Monitor 10/17/17: Sodium 132; on fluid restriction. IVF changed to NS from 2NS. Monitor (7) Hypoalbuminemia due to protein-calorie malnutrition Status: Chronic Assessment & Plan: Albumin 2.0; On TPN; Remains NPO due to ileus or bowel dysmotility (8) Hypoxia Status: Resolved Assessment & Plan: Remains on 2 liters Nasal [place]; Encourage ambulation/ assisted; Attempt O2 weaning (9) Peristomal hernia Status: Chronic Assessment & Plan: Present on admission exam and CT scan. Does not appear to be the source of his SBO. Easily reducible. Monitor during this acute process but may need repair remotely. Exam Sepsis Risk: No Definite Risk Problem Qualifiers (1) Pneumonia: Pneumonia type: due to unspecified organism Laterality: unspecified laterality Lung location: unspecified part of lung Qualified Codes: J18.9 - Pneumonia, unspecified organism MARISA ANDUJAR MD Nov 06, 2017 09:57
[2017-11-06 14:27] VITALS: BP 140/70
[2017-11-06] MEDS: FAT EMULSION 20% 250 ML BAG 250 ML IVPB SCH (18:18)
[2017-11-06 19:29] VITALS: BP 119/71
[2017-11-06] MEDS: TAMSULOSIN HCL 0.4 MG CAP PO SCH (20:43)
[2017-11-06] MEDS: OLANZapine ZYDIS ODT 5MG TABDP PO SCH (20:44)
[2017-11-06 23:27] VITALS: BP 131/78
[2017-11-07] MEDS: ACETAMINOPHEN(*)1000 MG/100 ML 100 ML IVPB PRN ×4 (01:58→23:40)
[2017-11-07 02:57] VITALS: BP 121/70
[2017-11-07] MEDS: KETOROLAC 30 MG/ML VIAL IVP PRN ×3 (05:14→19:02)
[2017-11-07] MEDS: [UNRECOGNIZED DRUG - OTHER] IV SCH ×2 (06:31→14:23)
[2017-11-07 07:22] VITALS: BP 121/83
--- NOTE | 2017-11-07 09:42 | General Surgery Progress Note ---
Subjective Progress Notes Subjective 100cc out of colostomy no vomiting no fevers Physical Exam Vital Signs Date Time Temp Pulse Resp B/P (MAP) Pulse Ox O2 Delivery O2 Flow Rate FiO2 11/07/17 07:22 97.2 121/83 (96) 90 Nasal Cannula 1.5 11/07/17 02:57 101 16 General Appearance: Awake Neuro: No Gross deficits ENT: Normal Cardiovascular: Normal Rhythm & Peripheral Pulses Respiratory: No Respiratory Distress GI: Soft and Non-Tender, Other (colostomy is pink, incision healed up) Extremities: Soft and Non Tender Psych: Alert & Oriented X3 Result Diagram: 11/06/17 0659 11/06/17 0659 Assessment and Plan Problems: (1) Small bowel obstruction due to postoperative adhesions Status: Acute Assessment & Plan: 10/04/17: Admit, nothing by mouth, IV fluids, bowel rest, conservative management start with. We'll follow his x-rays and NG tube output as well as stoma output. We will hold off on any sort of surgery until he is about 6 weeks out from his initial resection surgery. Hopefully he will respond to conservative management. His last meal was yesterday and his mother reports that he has been eating reasonably well. If he is unable to eat and about 5 or 6 days then we will need to consider a PICC line and starting TPN. I have explained this plan to the patient's mother and she seems to understand and seems to be agreeable with this plan. 10/05/17: Continued small bowel obstruction clinically and radiographically based on his KUB this morning. Will continue conservative management with NG tube decompression, bowel rest, and IV fluids. Continue IV antibiotics for pneumonia. If he fails to get better in the next several days may consider diagnostic laparoscopy with drainage of the pelvic fluid collection and inspection of his small bowel. We'll let his small bowel decompress further before contemplating this. 10/06/17: Will give po gastrograffin and will get CT this afternoon. KUB a little better but not much function from stoma. May need to consider exploratory laparoscopy tomorrow if not getting better. Stoma with white patches and area of necrosis on inferior portion only. Possibly the stoma appliance was cut too tight and pressing on the stoma, will need to follow this. Will add antifungal coverage in case white patches represent fungal infection of stoma although I don't recall every having seen this. Pt still with intermittent low grade fevers on broad spectrum antibiotic coverage so antifungal coverage will broaden that coverage as well. O/W, CCM. 10/07/17: Not much change. No stoma output. KUB has not yet been done this morning. Labs OK. Still with low grade fevers. WBC normal, neutrophil count coming down. CT abd/pelvis yesterday with decreased small bowel distension but still with evidence of SBO, fluid collection in unchanged, no free fluid or air. 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 Will await KUB. Getting to the point where we will need to consider PICC line and starting TPN. May discuss laparoscopic exploration later today; will discuss with patient's mother. 10/08/17: 4 weeks s/p robotic LAR, POD#1 s/p ex-laparoscopy with RILEY and drainage of presacral fluid. Doing well. WBC normal. Will follow fevers/ vitals, etc. Place PICC today to start TPN. Await return of bowel function. 10/09/17: POD2 ex laparoscopy. Awaiting return of bowel function. +BS and minimal NGT output so may be soon. Plan to start TPN on Wednesday. Patient needs to ambulate. Continue abx for pneumonia. Will try to remove perez catheter tomorrow. 10/10/17: POD3 ex laparoscopy. Still awaiting return of bowel function. Clamp NGT till noon and remove if low residuals and in good position on KUB. continue abx, continue perez. dropped MIVF to 75cc/hr. Patient is not participating with therapy. Good bowel sounds so started bowel reg today, senna s/miralax. 10/11/17: POD4 ex laparoscopy. Awaiting bowel function. NGT removed yesterday. Plan PICC/TPN today. Will need swallow eval before taking orals, could not tolerate bowel reg yesterday. May attempt to remove perez today. Ordered labs. 10/12/17: POD#5. Stable. Started TPN yesterday. KUB with gas throughout colon , I suspect we'll start seeing gas in stoma bag in next day or two. Still some dilated small bowel but colon looks better on KUB. Perez out, patient seems to be urinating without problems. CCM until bowel function returns. 10/13/17: POD#6. Doing well but still no evidence of bowel function. Continue bowel rest and TPN. Await return of bowel function. COntinue lovenox and PPI. CCM. 10/14/17: POD#7. Doing well. DAQUAN removed yesterday. KUB continues to improve with gas to distal colon but still no activity from stoma yet. Continue bowel rest and TPN while we await return of bowel function. Continue lovenox and PPI. 10/15/17: POD#8. Doing well but now with mild fevers and intermittent tachycardia. He has no pain and his abdominal exam is benign. Will get CXR and check UA. He's not on abx other than diflucan at this point. Continue bowel rest and TPN until bowel function returns. Continue lovenox, PPI. Hopeful for return of bowel function soon. 10/16/17: POD#9. Appears to be at his baseline. Ambulated with PT yesterday> 100 feet. Urinary incomplete emptying- started on Flomax 10/15. Stoma was irrigated with Fleets Enema by Dr Roque 10/15 with nothing more out than enema fluid. He has no pain and his abdominal exam is benign. 10/15/17 with T max 100.4- CXR was clear and UA was clear--both improved today. Off abx but remains on Diflucan for ronda appearance of the stoma noted earlier in hospitalization. Will do a trial of Erythromycin for potential bowel dysmotility (secondary to bipolar meds?) Continue bowel rest and TPN until bowel function returns. Continue Lovenox, PPI. 10/17/17: POD#10. Appears to be at his baseline. Ambulated with PT yesterday> 100 feet x 2; stronger. Urinary incomplete emptying- started on Flomax 10/15 and bladder scan was minimal for retained fluid. Started on po erythromycin for dysmotility. Stoma with large gas and small liquid out. Started on clear liquids today. He has no pain and his abdominal exam is benign. Off abx and diflucan now while undergoing trial of Erythromycin. Continue TPN until full bowel function/appetite returns. Continue Lovenox, PPI. 10/17/17 (Addendum @ 1220): Intermittent tachycardia. Peristomal hernia noted upon standing by nursing staff. This has been noted previously. No gas output or liquid output since 0600 this AM. Abdomen remains benign to my exam. Discussed care plan with Dr Roque and will try another enema today. Will continue erythromycin as a potential pro motility agent. 10/18/17: POD#11. Worsened from GI standpoint. Now with increased abdominal distension with N/V this morning. I stopped erythromycin and backed off on his diet. He had a fever this morning to 101F. Will obtain saucedo-cultures including cultures from his PICC line. Will get CXR, empirically start primaxin. May need to repeat abdominal CT. Will see how he does today and what cultures show , etc reveal. 10/19/17: POD#12. Doing better after Perez, NG tube placed and abx restarted. KUB c/w worsened ileus vs SBO. Fevers to over 101F yesterday, no fevers overnight, HR down this morning. Will repeat CT abd/pelvis today. Continue bowel rest, NG tube, TPN. No growth from cultures yet. 10/20/17: POD#13. Still without bowel function. CT c/w SBO with loop in pelvis and continued small bowel thickening in pelvis. Presacral fluid collection is small. Parastomal hernia but no obstruction. Pt's been afebrile now back on Primaxin. Continue bowel rest, NG tube decompression, TPN. No growth in cultures. Perez out last evening. Will see how he's able to void bladder. Will get SBFT with water-soluble contrast today. 10/21/17: POD#14. Possibly doing better? Having some stool output in bag. NG not putting out too much. Will start NG clamp trials. SBFT yesterday revealed no obstruction but c/w adynamic ileus. Now starting to see gastrograffin in stoma bag. Will try erythromycin as promotility agent. 10/22/17: POD#15. Now with stoma output after gastrograffin SBFT but still with dilated loops of small bowel on KUB. Continue NG clamp trials today and follow KUB. Started erythromycin yesterday, will see how effective this is. Continue bowel rest, TPN, etc until GI function clearly returning to normal. 6/30/18: POD#16. Doing well but KUB still with unchanging dilated loops of small bowel. NG not putting much out and pt tolerating clamp trials so will d/ c NG but will continue bowel rest and TPN. Continue erythromycin. 10/24/17: POD#17. Doing well. NG removed yesterday. Pt doing well. Still with ileus as no gas in bag. Will recheck KUB tomorrow morning. Continue bowel rest. May need to discuss Kg with psychiatry to discuss his medication' s role in prolonged ileus. Continue TPN. 10/25/17: POD#18. Doing well. Now having some gas from stoma. KUB looks a little better this morning with decreased dilated loops of small bowel. Hospital is out of Erythromycin IV and it is on backorder. Will change to PO erythromycin for promotility effects. Will o/w continue bowel rest until more signs of bowel activity since the last time she showed signs of gas and stool from his stoma when he was advanced to clears he became severely distended and we needed to replace his NG tube and resume rx for ileus vs SBO. Continue TPN until tolerating regular diet. 10/26/17: POD#19. Doing well. Increasing gas in stoma bag. Still with dilated loops of small bowel on KUB. Will hold of on diet for now until KUB markedly better and stoma bag consistently with a lot of gas in it (it is intermittent currently) given his previous intolerance to clear diet a couple of weeks ago when he acutely redeveloped his ileus. Continue bowel rest and TPN, continue PO erythromycin for promotility. 10/27/17: POD#20. Doing well. Bowel function improving. Will get KUB tomorrow morning and if small bowel dilation resolved then will slowly advance diet. Continue erythromycin, bowel rest, TPN today. 10/28/17: POD#21. Doing well. No gas in bag this morning. KUB with improving but still dilated loops of small bowel. Will see how his stoma is functioning today. Will change stoma bag to a new one to get a sense of stool output today. Continue bowel rest, TPN, erythromycin today. If he's putting gas/ stool out as today progresses, may try clear diet later today. 10/29/17: POD#22. No stoma activity once again. No gas or stool in bag for last 36-48hrs. Will check KUB this morning. O/W, continue bowel rest, TPN, erythromycin. 10/30/17: POD#23. Still no activity from the stoma. Patient is not in distress and does not have a suspicious abdominal exam. Continue to monitor, continue TPN and NPO. Ambulate. 10/31/17: POD#24: No evidence of nausea, distension or pain in his abdomen. Some slight amount more stool but not a significant amount. Continue TPN and watchful waiting. Patient experienced a non injury fall yesterday with no obvious sequelae. 11/01/17: POD#25. Doing well. Exam benign. Will recheck KUB this morning but still not much stoma activity. Continue TPN. If KUB looks good then may start slowly advancing diet and add bowel regimen such as miralax. 11/02/17: POD#26. Doing well, tolerating small amounts of liquid PO intake and Miralax. Abdominal exam is benign. Continue TPN. Will recheck labs and KUB tomorrow. 11/03/17: POD#27. Doing well. Tolerating small amounts of liquid PO and Miralax. KUB with mildly increased small bowel dilation but clinically he seems to be doing well. Will recheck KUB tomorrow and if it's not getting progressively worse and Kg isn't clinically worsening then will consider SLOWLY advancing his diet. Continue TPN in the mean time. Will convert him to depakote PO this morning. 11/04/17: POD#28. Doing well. Showing signs of improving bowel function and KUB with decreased SB dilation. Doing well on Miralax and colace. Will advance to full clear liquid diet without volume restrictions except will need to restrict his water intake due to his h/o psychogenic polydipsia. If he tolerates this today then will try full liquid diet tomorrow. Will continue TPN until tolerating regular diet. 11/05/17: POD#29. Doing well. Bowel function seems to be improving. Will start full liquid diet today. Continue fluid restriction. Continue Miralax and colace. Continue TPN until tolerating regular diet. 11/06/17: POD#30. Doing well. Had about 50cc out from colostomy. Made NPO yesterday, continue TPN. 11/07/17: POD#31: No changes. will check KUB to assess distention of bowels. If improvement may start clear liquid diet. (2) Pneumonia Status: Resolved Assessment & Plan: Now Off Antibiotics; Being treated with albuterol for expiratory wheezing (3) Urinary retention with incomplete bladder emptying Status: Chronic Assessment & Plan: Started flomax, will follow response. (4) Bipolar disorder, unspecified Status: Chronic Assessment & Plan: On Home medications (5) ANEMIA IN OTHER CHRONIC DISEASES CLASSIFIED ELSEWHERE Status: Chronic Assessment & Plan: Anemia likely secondary to chronic disease; Monitor (6) Hyponatremia Status: Chronic Assessment & Plan: 10/16/17: Appears to be euvolemic; Can adjust IV Fluids; Monitor 10/17/17: Sodium 132; on fluid restriction. IVF changed to NS from 1/2NS. Monitor (7) Hypoalbuminemia due to protein-calorie malnutrition Status: Chronic Assessment & Plan: Albumin 2.0; On TPN; Remains NPO due to ileus or bowel dysmotility (8) Hypoxia Status: Resolved Assessment & Plan: Remains on 2 liters Nasal Canula; Encourage ambulation/ assisted; Attempt O2 weaning (9) Peristomal hernia Status: Chronic Assessment & Plan: Present on admission exam and CT scan. Does not appear to be the source of his SBO. Easily reducible. Monitor during this acute process but may need repair remotely. Exam Sepsis Risk: Sepsis Risk Problem Qualifiers (1) Pneumonia: Pneumonia type: due to unspecified organism Laterality: unspecified laterality Lung location: unspecified part of lung Qualified Codes: J18.9 - Pneumonia, unspecified organism MARISA ANDUJAR MD Nov 07, 2017 09:42
[2017-11-07] MEDS: DIVALPROEX SOD ER 500 MG TABSR PO SCH ×2 (10:44→20:19)
[2017-11-07] MEDS: POLYETHYLENE GLYCOL 17 GM PKT PO SCH (10:44)
[2017-11-07] MEDS: ENOXAPARIN 40 MG/0.4ML SYR SC SCH (10:44)
[2017-11-07] MEDS: FAMOTIDINE 20 MG TAB PO SCH ×2 (10:44→20:19)
[2017-11-07] MEDS: DOCUSATE SODIUM 100 MG CAP PO SCH ×2 (10:44→20:18)
[2017-11-07 11:35] VITALS: BP 103/61
--- NOTE | 2017-11-07 12:35 | RADIOLOGY IMAGING REPORT ---
FAC[place] [facility] [place] NAME: Matthew Roth : 1960 MR: [id number] V: [id number] EXAM DATE: ORDERING PHYSICIAN: MARISA ANDUJAR TECHNOLOGIST: Location: [facility] Patient: Matthew Roth : 1960 Visit/Account:[id number] Date of Sevice: 11/07/2017 Single view of the abdomen Indication: Possible bowel obstruction. Comparison: November 06, 2017. Findings: Persistent gas-filled dilated loops of small bowel. Overall, bowel loops appear stable to slightly de creased since prior exam. There is gas within nondistended colon. There are no pathologic calcifications identified. IMPRESSION: 1. Stable to slight decreased gas-filled distended loops of small bowel. Report Dictated By: Vic Fuentes MD at 11/07/2017 12:30 PM Report E-Signed By: Vic Fuentes MD at 11/07/2017 12:31 PM WSN:[id number]
--- NOTE | 2017-11-07 12:59 | Medical Nutrition Therapy ---
Nutritional Support Current Enteral / Parental: TPN Rate: 125ml/hr Clinimex 5% AA , 15% dextose, + 20% lipid/12 hrs Current Duration: 24 Current Calories: 2130 Current Protein: 150 Current Lipids Calories: 500 Total Current Calories: 2630 Recommended Enteral / Parental: TPN Recommended Rate: 100ml/hr Clinimex %% AA,20% dextrose + 20% lipids /12 hrs Recommended Duration: 24 Recommended Calories: 2112 Recommended Protein: 100 Recommended Lipids Calories: 500 Total Recommended Calories: 2612 Nutrition Monitoring & Eval RD Patient Assessment Time: [address] Assessment Type: Nutrition Support Consult Patient Nutrition Acuity: 1-High Follow Up Date: Nov 08, 2017 Nutritional Comment: 10/05 Pt admitted for SBO and pneumonia. Pt is experiencing N/V, fever and abdominal pain. Pt is on NPO diet with meds only. Pt has a hx of colon cancer. Pt had a colostomy placed (09/10). Pt mother states the his bowel movements have in his bag have been more bulky. She states that he eats reasonably well. However, in doctor's note he had stated if pt does not eat within the next 5-6 days a PICC line and TPN would be placed. Mother agreed to this plan. Pt WBC was elevated and has reach WNR. Pt is on antibiotics for pneumonia. Pt has pelvic fluid collection and at risk for sepsis. Pt has low Na (130) and low H/H. Continue to monitor pt progress, labs and diet advancement. -MT 10/07 Pt continues on NPO diet, he is now on day three. Pt states that he wants water. Pt still has evidence of SBO and fluid collection. In the doctor's note it states pt is getting to the point where we will need to consider PICC line and starting TPN. Pt may benefit from 1800 ml TPN at 75ml/hr providing 1836 kcal ad 76g protein. This will meet 94% of the pt energy needs and 97% protein. Pt has low alb (2.3), no other concern labs at this time. Will continue to monitor pt progress and TPN order. -MT 10/08 Pt 4th day NPO. Per Dr notes, pt will start TPN today. Alb has declined to 2. Recommend final TPN rate of 75 ml/hr plus lipids to meet 109% est kcal and 97% est protein needs. BK 10/10 Low H/H, Alb 2.0, Low Ca+. TPN delayed until Wednesday (10/11), bowel sounds now present. Follow clinical progression. -DRT 10/12 Continues to have low H/H, low WBC, Na (127), alb (2.1) and elevated K+ (6.9). Pt started TPN (10/11). NG tube and perez removed. Pt did swallowing eval. No concern at this time. Will continue to monitor pt progress and diet advancement. -MT 10/15 No complaints. Pt has mild fever. Pt is still weak and experiencing tremors in both LE. DAQUAN removed yesterday (10/14). Colostomy bag continues to have gas in it, however no BM. Per doctor note continue bowel rest and TPN while we await return of bowel function. Pt urinary retention and pneumonia have been resolved. Pt Na is low (133). Pt is receiving IV Na PRN. Will continue to monitor pt progress, labs and encourage intake.-MT 10/18 Pt continues on TPN until bowel function returns to normal. Per doctor note, will do a trial of Erythromycin for potential bowel dysmotility. Did two enemas, got some liquids in colostomy bag. However doctors note states GI has gotten worse. Pt is distended with N/V. Pt had a fever yesterday (101) with elevated WAC (11.1) and blood glucose ( 128). Pt has had a 5# wt loss since 10/12 (146#) to now (141). Will continue to monitor pt progress, labs and diet advancement. -MT 10/20 Wt is down 10# since admission. Alb 2.5 is improving. Pt cont on TPN. Reassessed nutritional needs with est higher kcal and protein needs. Recommend increase TPN to 2000 ml/24 hr plus 250ml lipids 12 hrs to meet 95% est kcal and 98% est protein needs. Cont to monitor. BK 10/23 Pt cont on TPN with hypoactivbe bowel sounds. TPN was increased to 2000ml/24 hr to meet 95% est kcal and 98% est protein needs. Alb at 2.3 slowly increaseing . Wt is up 2#. Will cont to monitor. BK 10/25 Pt cont on TPN with hypoactivbe bowel sounds and maryanne from stoma. TPN is meeting 95% est kcal and 98% est protein needs. Alb at 2.4 is slowly increaseing . Wt is within usual range. Will cont to monitor. BK 10/28 Pt cont on TPN however on10/24 pharmacy changed to a 15% dextrose, 5% protein solution which provides 1420 kcal + 500 from lipid for total kcal of 2020 and 100 gm protein. This meets 80% est kcal and 116% est protein needs. Pt has lost wt from 144# on 10/24 to 133# on 10/27 with some of the wt loss probalby r/t fluids. However recommend increase TPN to 3000ml/day to provide 2630 kcal to meet 105% est kcal and 174% est protein needs to avoid futher wt loss. Alb declined to 2.3 so additional protein would be helpful. Recommend cont TPN until oral intake can meet nutr needs. BK 10/29 TPN increased to 3L/day of Clinimex 09/07. TPN is now meeting 105% est kcal needs, 174% est protein needs. Wt is back up 4#. Cont down 19% from admit wt. Alb 2.3. Cont to monitor. BK 11/01 Pt continues on TPN 3L/day Clinimex 09/07. Pt. has hypoactive bowel sounds, no gas from stoma. Wt. is fluctuating between 133-135# over past 4 days. Alb. has increased to 2.6. May advance diet with Miralax pending KUB. On 10/30 pt. was asleep, but talked with mother - will educate on high kcal/protein diet once off TPN. Will continue to monitor. RB 11/04 Diet advanced to clear liquids with TPN 3L/day Clinimex 09/07 to meet needs. Pt. seems to be tolerating well - ate 25% of clear tray at breakfast on 11/03. Flatus present and improving KUB function. Alb. now at 2.8, continues to trend upward. Wt. also fluctuating btw. 132-139# over the past week, now at 138#. On water restriction per note due to psychogenic polydipsia. BUN running slightly high (22) on 11/01 and 11/03 but WNL previously. Sodium levels slightly low at 134, avg. 132-136. Will continue to monitor progress, labs and diet advancement. RB 11/05 Diet advanced to med liquid/GI soft. No intake reported at this time. Nursing providing foods. Wt up slightly 10 139# but within the range he has been fluctuating. Pt cont on TPN which is meeting nutritional needs. Will cont to monitor. BK 11/07 Was informed by pharmacy that they are on the last bottle of Cinimex 15% dextrose, 5% AA. They will be able to stock and cont to keep on hand Cinimex 20% dextrose, 5% AA. Recommend change to that formula at a rate of 100ml/hr plus lipids to provide 2612 kcal, 100g protein to meet 104% est kcal and 120% est protein needs. Dr Calvillo was called and informed of the unaviabilty of the previous TPN solution and the recommended change. BK Copies To Copies to: ZACH CLAUDIO MD, BETH Nov 07, 2017 12:59
[2017-11-07 14:17] VITALS: BP 122/66
[2017-11-07] MEDS: FAT EMULSION 20% 250 ML BAG 250 ML IVPB SCH (17:37)
[2017-11-07] MEDS: NS(*) 0.9% 250 ML BAG 250 ML IVPB PRN (17:37)
[2017-11-07 18:57] VITALS: BP 130/99
[2017-11-07] MEDS: TAMSULOSIN HCL 0.4 MG CAP PO SCH (19:59)
[2017-11-07] MEDS: OLANZapine ZYDIS ODT 5MG TABDP PO SCH (20:19)
[2017-11-07] MEDS ORDERED: [UNRECOGNIZED DRUG - OTHER] IV SCH (23:00)
[2017-11-07] MEDS ORDERED: [UNRECOGNIZED DRUG - OTHER] IV SCH (23:00)
[2017-11-08 02:14] VITALS: BP 142/70
[2017-11-08] MEDS: KETOROLAC 30 MG/ML VIAL IVP PRN ×3 (02:18→17:14)
[2017-11-08] MEDS: ACETAMINOPHEN(*)1000 MG/100 ML 100 ML IVPB PRN ×3 (06:29→19:46)
--- NOTE | 2017-11-08 07:47 | General Surgery Progress Note ---
Subjective Progress Notes Subjective No complaints this morning. Physical Exam Vital Signs Date Time Temp Pulse Resp B/P (MAP) Pulse Ox O2 Delivery O2 Flow Rate FiO2 11/08/17 02:14 99.4 108 16 142/70 (94) 94 Nasal Cannula 2.0 Intake and Output 11/09/17 07:00 Intake Total 100 ml Balance 100 ml IV Total 100 ml General Appearance: Alert, Awake, No Acute Distress, Afebrile GI: Soft and Non-Tender (Stoma is pink, not much gas or stool in bag.) Extremities: Warm, Perfused Result Diagram: 11/06/17 0659 11/06/17 0659 Assessment and Plan Problems: (1) Small bowel obstruction due to postoperative adhesions Status: Acute Assessment & Plan: 10/04/17: Admit, nothing by mouth, IV fluids, bowel rest, conservative management start with. We'll follow his x-rays and NG tube output as well as stoma output. We will hold off on any sort of surgery until he is about 6 weeks out from his initial resection surgery. Hopefully he will respond to conservative management. His last meal was yesterday and his mother reports that he has been eating reasonably well. If he is unable to eat and about 5 or 6 days then we will need to consider a PICC line and starting TPN. I have explained this plan to the patient's mother and she seems to understand and seems to be agreeable with this plan. 10/05/17: Continued small bowel obstruction clinically and radiographically based on his KUB this morning. Will continue conservative management with NG tube decompression, bowel rest, and IV fluids. Continue IV antibiotics for pneumonia. If he fails to get better in the next several days may consider diagnostic laparoscopy with drainage of the pelvic fluid collection and inspection of his small bowel. We'll let his small bowel decompress further before contemplating this. 10/06/17: Will give po gastrograffin and will get CT this afternoon. KUB a little better but not much function from stoma. May need to consider exploratory laparoscopy tomorrow if not getting better. Stoma with white patches and area of necrosis on inferior portion only. Possibly the stoma appliance was cut too tight and pressing on the stoma, will need to follow this. Will add antifungal coverage in case white patches represent fungal infection of stoma although I don't recall every having seen this. Pt still with intermittent low grade fevers on broad spectrum antibiotic coverage so antifungal coverage will broaden that coverage as well. O/W, CCM. 10/07/17: Not much change. No stoma output. KUB has not yet been done this morning. Labs OK. Still with low grade fevers. WBC normal, neutrophil count coming down. CT abd/pelvis yesterday with decreased small bowel distension but still with evidence of SBO, fluid collection in unchanged, no free fluid or air. 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 Will await KUB. Getting to the point where we will need to consider PICC line and starting TPN. May discuss laparoscopic exploration later today; will discuss with patient's mother. 10/08/17: 4 weeks s/p robotic LAR, POD#1 s/p ex-laparoscopy with RILEY and drainage of presacral fluid. Doing well. WBC normal. Will follow fevers/ vitals, etc. Place PICC today to start TPN. Await return of bowel function. 10/09/17: POD2 ex laparoscopy. Awaiting return of bowel function. +BS and minimal NGT output so may be soon. Plan to start TPN on Wednesday. Patient needs to ambulate. Continue abx for pneumonia. Will try to remove perez catheter tomorrow. 10/10/17: POD3 ex laparoscopy. Still awaiting return of bowel function. Clamp NGT till noon and remove if low residuals and in good position on KUB. continue abx, continue perez. dropped MIVF to 75cc/hr. Patient is not participating with therapy. Good bowel sounds so started bowel reg today, senna s/miralax. 10/11/17: POD4 ex laparoscopy. Awaiting bowel function. NGT removed yesterday. Plan PICC/TPN today. Will need swallow eval before taking orals, could not tolerate bowel reg yesterday. May attempt to remove perez today. Ordered labs. 10/12/17: POD#5. Stable. Started TPN yesterday. KUB with gas throughout colon , I suspect we'll start seeing gas in stoma bag in next day or two. Still some dilated small bowel but colon looks better on KUB. Perez out, patient seems to be urinating without problems. CCM until bowel function returns. 10/13/17: POD#6. Doing well but still no evidence of bowel function. Continue bowel rest and TPN. Await return of bowel function. COntinue lovenox and PPI. CCM. 10/14/17: POD#7. Doing well. DAQUAN removed yesterday. KUB continues to improve with gas to distal colon but still no activity from stoma yet. Continue bowel rest and TPN while we await return of bowel function. Continue lovenox and PPI. 10/15/17: POD#8. Doing well but now with mild fevers and intermittent tachycardia. He has no pain and his abdominal exam is benign. Will get CXR and check UA. He's not on abx other than diflucan at this point. Continue bowel rest and TPN until bowel function returns. Continue lovenox, PPI. Hopeful for return of bowel function soon. 10/16/17: POD#9. Appears to be at his baseline. Ambulated with PT yesterday> 100 feet. Urinary incomplete emptying- started on Flomax 10/15. Stoma was irrigated with Fleets Enema by Dr Claudio 10/15 with nothing more out than enema fluid. He has no pain and his abdominal exam is benign. 10/15/17 with T max 100.4- CXR was clear and UA was clear--both improved today. Off abx but remains on Diflucan for ronda appearance of the stoma noted earlier in hospitalization. Will do a trial of Erythromycin for potential bowel dysmotility (secondary to bipolar meds?) Continue bowel rest and TPN until bowel function returns. Continue Lovenox, PPI. 10/17/17: POD#10. Appears to be at his baseline. Ambulated with PT yesterday> 100 feet x 2; stronger. Urinary incomplete emptying- started on Flomax 10/15 and bladder scan was minimal for retained fluid. Started on po erythromycin for dysmotility. Stoma with large gas and small liquid out. Started on clear liquids today. He has no pain and his abdominal exam is benign. Off abx and diflucan now while undergoing trial of Erythromycin. Continue TPN until full bowel function/appetite returns. Continue Lovenox, PPI. 10/17/17 (Addendum @ 1220): Intermittent tachycardia. Peristomal hernia noted upon standing by nursing staff. This has been noted previously. No gas output or liquid output since 0600 this AM. Abdomen remains benign to my exam. Discussed care plan with Dr Claudio and will try another enema today. Will continue erythromycin as a potential pro motility agent. 10/18/17: POD#11. Worsened from GI standpoint. Now with increased abdominal distension with N/V this morning. I stopped erythromycin and backed off on his diet. He had a fever this morning to 101F. Will obtain saucedo-cultures including cultures from his PICC line. Will get CXR, empirically start primaxin. May need to repeat abdominal CT. Will see how he does today and what cultures show , etc reveal. 10/19/17: POD#12. Doing better after Perez, NG tube placed and abx restarted. KUB c/w worsened ileus vs SBO. Fevers to over 101F yesterday, no fevers overnight, HR down this morning. Will repeat CT abd/pelvis today. Continue bowel rest, NG tube, TPN. No growth from cultures yet. 10/20/17: POD#13. Still without bowel function. CT c/w SBO with loop in pelvis and continued small bowel thickening in pelvis. Presacral fluid collection is small. Parastomal hernia but no obstruction. Pt's been afebrile now back on Primaxin. Continue bowel rest, NG tube decompression, TPN. No growth in cultures. Perez out last evening. Will see how he's able to void bladder. Will get SBFT with water-soluble contrast today. 10/21/17: POD#14. Possibly doing better? Having some stool output in bag. NG not putting out too much. Will start NG clamp trials. SBFT yesterday revealed no obstruction but c/w adynamic ileus. Now starting to see gastrograffin in stoma bag. Will try erythromycin as promotility agent. 10/22/17: POD#15. Now with stoma output after gastrograffin SBFT but still with dilated loops of small bowel on KUB. Continue NG clamp trials today and follow KUB. Started erythromycin yesterday, will see how effective this is. Continue bowel rest, TPN, etc until GI function clearly returning to normal. 10/23/17: POD#16. Doing well but KUB still with unchanging dilated loops of small bowel. NG not putting much out and pt tolerating clamp trials so will d/ c NG but will continue bowel rest and TPN. Continue erythromycin. 10/24/17: POD#17. Doing well. NG removed yesterday. Pt doing well. Still with ileus as no gas in bag. Will recheck KUB tomorrow morning. Continue bowel rest. May need to discuss Kg with psychiatry to discuss his medication' s role in prolonged ileus. Continue TPN. 10/25/17: POD#18. Doing well. Now having some gas from stoma. KUB looks a little better this morning with decreased dilated loops of small bowel. Hospital is out of Erythromycin IV and it is on backorder. Will change to PO erythromycin for promotility effects. Will o/w continue bowel rest until more signs of bowel activity since the last time she showed signs of gas and stool from his stoma when he was advanced to clears he became severely distended and we needed to replace his NG tube and resume rx for ileus vs SBO. Continue TPN until tolerating regular diet. 10/26/17: POD#19. Doing well. Increasing gas in stoma bag. Still with dilated loops of small bowel on KUB. Will hold of on diet for now until KUB markedly better and stoma bag consistently with a lot of gas in it (it is intermittent currently) given his previous intolerance to clear diet a couple of weeks ago when he acutely redeveloped his ileus. Continue bowel rest and TPN, continue PO erythromycin for promotility. 10/27/17: POD#20. Doing well. Bowel function improving. Will get KUB tomorrow morning and if small bowel dilation resolved then will slowly advance diet. Continue erythromycin, bowel rest, TPN today. 10/28/17: POD#21. Doing well. No gas in bag this morning. KUB with improving but still dilated loops of small bowel. Will see how his stoma is functioning today. Will change stoma bag to a new one to get a sense of stool output today. Continue bowel rest, TPN, erythromycin today. If he's putting gas/ stool out as today progresses, may try clear diet later today. 10/29/17: POD#22. No stoma activity once again. No gas or stool in bag for last 36-48hrs. Will check KUB this morning. O/W, continue bowel rest, TPN, erythromycin. 10/30/17: POD#23. Still no activity from the stoma. Patient is not in distress and does not have a suspicious abdominal exam. Continue to monitor, continue TPN and NPO. Ambulate. 10/31/17: POD#24: No evidence of nausea, distension or pain in his abdomen. Some slight amount more stool but not a significant amount. Continue TPN and watchful waiting. Patient experienced a non injury fall yesterday with no obvious sequelae. 11/01/17: POD#25. Doing well. Exam benign. Will recheck KUB this morning but still not much stoma activity. Continue TPN. If KUB looks good then may start slowly advancing diet and add bowel regimen such as miralax. 11/02/17: POD#26. Doing well, tolerating small amounts of liquid PO intake and Miralax. Abdominal exam is benign. Continue TPN. Will recheck labs and KUB tomorrow. 11/03/17: POD#27. Doing well. Tolerating small amounts of liquid PO and Miralax. KUB with mildly increased small bowel dilation but clinically he seems to be doing well. Will recheck KUB tomorrow and if it's not getting progressively worse and Kg isn't clinically worsening then will consider SLOWLY advancing his diet. Continue TPN in the mean time. Will convert him to depakote PO this morning. 11/04/17: POD#28. Doing well. Showing signs of improving bowel function and KUB with decreased SB dilation. Doing well on Miralax and colace. Will advance to full clear liquid diet without volume restrictions except will need to restrict his water intake due to his h/o psychogenic polydipsia. If he tolerates this today then will try full liquid diet tomorrow. Will continue TPN until tolerating regular diet. 11/05/17: POD#29. Doing well. Bowel function seems to be improving. Will start full liquid diet today. Continue fluid restriction. Continue Miralax and colace. Continue TPN until tolerating regular diet. 11/06/17: POD#30. Doing well. Had about 50cc out from colostomy. Made NPO yesterday, continue TPN. 7/15/18: POD#31: No changes. will check KUB to assess distention of bowels. If improvement may start clear liquid diet. 16: POD#32. No improvement. Will ask psychiatry to evaluate and consider medication adjustment in psych meds to improve bowel function. (2) Pneumonia Status: Resolved Assessment & Plan: Now Off Antibiotics; Being treated with albuterol for expiratory wheezing (3) Urinary retention with incomplete bladder emptying Status: Chronic Assessment & Plan: Started flomax, will follow response. (4) Bipolar disorder, unspecified Status: Chronic Assessment & Plan: On Home medications (5) ANEMIA IN OTHER CHRONIC DISEASES CLASSIFIED ELSEWHERE Status: Chronic Assessment & Plan: Anemia likely secondary to chronic disease; Monitor (6) Hyponatremia Status: Chronic Assessment & Plan: 10/16/17: Appears to be euvolemic; Can adjust IV Fluids; Monitor 10/17/17: Sodium 132; on fluid restriction. IVF changed to NS from 1/2NS. Monitor (7) Hypoalbuminemia due to protein-calorie malnutrition Status: Chronic Assessment & Plan: Albumin 2.0; On TPN; Remains NPO due to ileus or bowel dysmotility (8) Hypoxia Status: Resolved Assessment & Plan: Remains on 2 liters Nasal Canula; Encourage ambulation/ assisted; Attempt O2 weaning (9) Peristomal hernia Status: Chronic Assessment & Plan: Present on admission exam and CT scan. Does not appear to be the source of his SBO. Easily reducible. Monitor during this acute process but may need repair remotely. Condition Stable. Time Spent: < 30 min Exam Sepsis Risk: No Definite Risk Problem Qualifiers (1) Pneumonia: Pneumonia type: due to unspecified organism Laterality: unspecified laterality Lung location: unspecified part of lung Qualified Codes: J18.9 - Pneumonia, unspecified organism ZACH CLAUDIO MD Nov 08, 2017 07:47
[2017-11-08 08:12] VITALS: BP 114/75
[2017-11-08] MEDS: ENOXAPARIN 40 MG/0.4ML SYR SC SCH (09:47)
[2017-11-08] MEDS: POLYETHYLENE GLYCOL 17 GM PKT PO SCH (09:48)
[2017-11-08] MEDS: DOCUSATE SODIUM 100 MG CAP PO SCH ×2 (09:48→20:58)
[2017-11-08] MEDS: FAMOTIDINE 20 MG TAB PO SCH ×2 (09:49→20:58)
[2017-11-08] MEDS: DIVALPROEX SOD ER 500 MG TABSR PO SCH ×2 (09:49→20:58)
--- NOTE | 2017-11-08 14:50 | Medical Nutrition Therapy ---
Nutrition Anthropometrics Height (Inches): 67.00 Height (Calculated Centimeters: 170.850778 Weight (Pounds): 142 Weight (Calculated Kilograms): 64.410 BMI: 22.5 Sherman Nutrition Score: Probably Inadequate Sherman Nutrition Risk Score: 18 Dietary Referral Nutrition Risk Factors: Nutrition Risk Comment: Physical Findings Physical Appearance: WNR 22.3 Skin Appearance Skin Appearance: Edema Edema Location Modifier: Both Edema Location: Ankle Type of Edema: Degree of Edema: Gastrointestinal Symptoms GI Symtoms: Change in Bowel Pattern Tube Present: NG Bowel Sounds: Recent Bowel Pattern: Stool Characteristics: Brown, Soft Nutritional Diagnosis Nutritional Risk Acuity 1: TPN/PPN, GI Obstruction (SBO) Nutritional Risk Acuity 3: Colostomy Past Medical History: fecal incontinence, severe manic bipolar 1 disorder with psychotic behavior, psychogenic polydipsia, hyponatremia, OCD, rectal cancer, SBO, fatigue, weakness, hyperlipidemia, pneumonia, hx colon cancer, pevlic fluid collection Nutritional Acuity: 1-High Nutrition Diagnosis: Inadequate Food Intake Nutrition Etiology: Physiological Causes Nutrition Problem/Etiology/Sym: Inadequate oral intake related to physiological causes as evidence by nutrition support from TPN. Energy Requirement: 2515 ([place] X 1.3SF) Protein Requirement: 86 (1.3gm/kg) Fluid Requirement: 2000 (30ml/kg) Diet Type: TPN/PPN Nutrition Intervention: Nutrition support (TPN ) Additional Diet Restrictions: DIETARY TO PROVIDE NO MORE THAN 240ML/MEAL Nutritional Support Current Enteral / Parental: TPN Rate: 100 mL/hr Clinimex 5%AA + 20% Dex. + 20% lipid / 12 hrs Current Duration: 24 Current Calories: 2112 Current Protein: 100 Current Lipids Calories: 500 Total Current Calories: 2612 Nutrition Monitoring & Eval RD Patient Assessment Time: [address] Assessment Type: RD Re-Assessment Patient Nutrition Acuity: 1-High Follow Up Date: Nov 11, 2017 Nutritional Comment: 10/05 Pt admitted for SBO and pneumonia. Pt is experiencing N/V, fever and abdominal pain. Pt is on NPO diet with meds only. Pt has a hx of colon cancer. Pt had a colostomy placed (09/10). Pt mother states the his bowel movements have in his bag have been more bulky. She states that he eats reasonably well. However, in doctor's note he had stated if pt does not eat within the next 5-6 days a PICC line and TPN would be placed. Mother agreed to this plan. Pt WBC was elevated and has reach WNR. Pt is on antibiotics for pneumonia. Pt has pelvic fluid collection and at risk for sepsis. Pt has low Na (130) and low H/H. Continue to monitor pt progress, labs and diet advancement. -MT 10/07 Pt continues on NPO diet, he is now on day three. Pt states that he wants water. Pt still has evidence of SBO and fluid collection. In the doctor's note it states pt is getting to the point where we will need to consider PICC line and starting TPN. Pt may benefit from 1800 ml TPN at 75ml/hr providing 1836 kcal ad 76g protein. This will meet 94% of the pt energy needs and 97% protein. Pt has low alb (2.3), no other concern labs at this time. Will continue to monitor pt progress and TPN order. -MT 10/08 Pt 4th day NPO. Per Dr notes, pt will start TPN today. Alb has declined to 2. Recommend final TPN rate of 75 ml/hr plus lipids to meet 109% est kcal and 97% est protein needs. BK 10/10 Low H/H, Alb 2.0, Low Ca+. TPN delayed until Wednesday (10/11), bowel sounds now present. Follow clinical progression. -DRT 10/12 Continues to have low H/H, low WBC, Na (127), alb (2.1) and elevated K+ (6.9). Pt started TPN (10/11). NG tube and perez removed. Pt did swallowing eval. No concern at this time. Will continue to monitor pt progress and diet advancement. -MT 10/15 No complaints. Pt has mild fever. Pt is still weak and experiencing tremors in both LE. DAQUAN removed yesterday (10/14). Colostomy bag continues to have gas in it, however no BM. Per doctor note continue bowel rest and TPN while we await return of bowel function. Pt urinary retention and pneumonia have been resolved. Pt Na is low (133). Pt is receiving IV Na PRN. Will continue to monitor pt progress, labs and encourage intake.-MT 10/18 Pt continues on TPN until bowel function returns to normal. Per doctor note, will do a trial of Erythromycin for potential bowel dysmotility. Did two enemas, got some liquids in colostomy bag. However doctors note states GI has gotten worse. Pt is distended with N/V. Pt had a fever yesterday (101) with elevated WAC (11.1) and blood glucose ( 128). Pt has had a 5# wt loss since 10/12 (146#) to now (141). Will continue to monitor pt progress, labs and diet advancement. -MT 10/20 Wt is down 10# since admission. Alb 2.5 is improving. Pt cont on TPN. Reassessed nutritional needs with est higher kcal and protein needs. Recommend increase TPN to 2000 ml/24 hr plus 250ml lipids 12 hrs to meet 95% est kcal and 98% est protein needs. Cont to monitor. BK 10/23 Pt cont on TPN with hypoactivbe bowel sounds. TPN was increased to 2000ml/24 hr to meet 95% est kcal and 98% est protein needs. Alb at 2.3 slowly increaseing . Wt is up 2#. Will cont to monitor. BK 10/25 Pt cont on TPN with hypoactivbe bowel sounds and maryanne from stoma. TPN is meeting 95% est kcal and 98% est protein needs. Alb at 2.4 is slowly increaseing . Wt is within usual range. Will cont to monitor. BK 10/28 Pt cont on TPN however on10/24 pharmacy changed to a 15% dextrose, 5% protein solution which provides 1420 kcal + 500 from lipid for total kcal of 2020 and 100 gm protein. This meets 80% est kcal and 116% est protein needs. Pt has lost wt from 144# on 10/24 to 133# on 10/27 with some of the wt loss probalby r/t fluids. However recommend increase TPN to 3000ml/day to provide 2630 kcal to meet 105% est kcal and 174% est protein needs to avoid futher wt loss. Alb declined to 2.3 so additional protein would be helpful. Recommend cont TPN until oral intake can meet nutr needs. BK 10/29 TPN increased to 3L/day of Clinimex 09/07. TPN is now meeting 105% est kcal needs, 174% est protein needs. Wt is back up 4#. Cont down 19% from admit wt. Alb 2.3. Cont to monitor. BK 11/01 Pt continues on TPN 3L/day Clinimex 09/07. Pt. has hypoactive bowel sounds, no gas from stoma. Wt. is fluctuating between 133-135# over past 4 days. Alb. has increased to 2.6. May advance diet with Miralax pending KUB. On 10/30 pt. was asleep, but talked with mother - will educate on high kcal/protein diet once off TPN. Will continue to monitor. RB 11/04 Diet advanced to clear liquids with TPN 3L/day Clinimex 09/07 to meet needs. Pt. seems to be tolerating well - ate 25% of clear tray at breakfast on 11/03. Flatus present and improving KUB function. Alb. now at 2.8, continues to trend upward. Wt. also fluctuating btw. 132-139# over the past week, now at 138#. On water restriction per Dr. barreot due to psychogenic polydipsia. BUN running slightly high (22) on 11/01 and 11/03 but WNL previously. Sodium levels slightly low at 134, avg. 132-136. Will continue to monitor progress, labs and diet advancement. RB 11/05 Diet advanced to med liquid/GI soft. No intake reported at this time. Nursing providing foods. Wt up slightly 10 139# but within the range he has been fluctuating. Pt cont on TPN which is meeting nutritional needs. Will cont to monitor. BK 11/07 Was informed by pharmacy that they are on the last bottle of Cinimex 15% dextrose, 5% AA. They will be able to stock and cont to keep on hand Cinimex 20% dextrose, 5% AA. Recommend change to that formula at a rate of 100ml/hr plus lipids to provide 2612 kcal, 100g protein to meet 104% est kcal and 120% est protein needs. Dr Calvillo was called and informed of the unaviabilty of the previous TPN solution and the recommended change. BK 11/08 TPN was changed to recommended rate with Clinimex 5% AA / 20% Dex at 100 mL/hr. This provides 104% est kcal and 120% est protein needs. Pt. has distended hypoactive bowel - no improvement in KUB per Dr. note. Blood glucose 104 today. Wt continues to trend upward; he is at 64.4kg. Will monitor wt., labs and TPN. - AHMET DUARTE Nov 08, 2017 14:08
[2017-11-08 15:06] VITALS: BP 113/93
[2017-11-08] MEDS: FAT EMULSION 20% 250 ML BAG 250 ML IVPB SCH (18:16)
[2017-11-08 19:42] VITALS: BP 130/80
[2017-11-08] MEDS: [UNRECOGNIZED DRUG - OTHER] IV SCH (20:27)
[2017-11-08] MEDS: TAMSULOSIN HCL 0.4 MG CAP PO SCH (20:58)
[2017-11-08] MEDS: OLANZapine ZYDIS ODT 5MG TABDP PO SCH (20:59)
[2017-11-09] MEDS: KETOROLAC 30 MG/ML VIAL IVP PRN ×4 (00:01→22:53)
[2017-11-09 02:02] VITALS: BP 120/65
[2017-11-09] MEDS: ACETAMINOPHEN(*)1000 MG/100 ML 100 ML IVPB PRN ×3 (03:16→18:33)
[2017-11-09 06:36] LABS: PLATELET COUNT, AUTOMATED 450 K/uL (150-450)
--- NOTE | 2017-11-09 07:25 | RADIOLOGY IMAGING REPORT ---
FACILITY: [facility] PATIENT NAME: Matthew Roth : 1960 MR: [id number] V: [id number] EXAM DATE: ORDERING PHYSICIAN: ZACH CLAUDIO TECHNOLOGIST: Location: [facility] [place] Patient: Matthew Roth : 1960 Visit/Account:[id number] Date of Sevice: 11/09/2017 KUB SINGLE VIEW ABDOMEN COMPARISONS: November 07, 2017 ADDITIONAL PERTINENT HISTORY: Ileus FINDINGS: Lung bases: Negative. Supine evidence of free air: None. Bowel gas pattern: Continued distended loops of small and large bowel compatible with underlying ileu s. No significant change since previous exam. Surrounding soft tissues and solid organs: Negative. Osseous structures: Negative. IMPRESSION: 1. Stable appearing ileus. 2. No new findings since previous exam. Report Dictated By: Jeffry Kang MD at 11/09/2017 7:20 AM Report E-Signed By: Jeffry Kang MD at 11/09/2017 7:22 AM WSN:[id number]
--- NOTE | 2017-11-09 07:47 | Miscellaneous Provider Note ---
Miscellaneous Provider Note Note Spoke with Dr. Roque on 08 November 2017, regarding slowing of GI motility likely worsened by the administration of Zyprexa. Patient is known to behavioral health unit, and at this time, recommendation given for reduction in Zyprexa to 10mg QHS for the evening of 08 November and 09 November. Will monitor symptoms and if no exacerbation of psychiatric symptoms are noted, may try further reduction to 5mg QHS on evening of 10 November 2017. Please inform of progress, . will continue to follow. Medical Records to be sent: Miscellaneous RODDY Mckeon MD Nov 09, 2017 07:47
--- NOTE | 2017-11-09 07:48 | General Surgery Progress Note ---
Subjective Progress Notes Subjective Increased abdominal distension. Vomited x1 this morning. Physical Exam Vital Signs Date Time Temp Pulse Resp B/P (MAP) Pulse Ox O2 Delivery O2 Flow Rate FiO2 11/09/17 02:02 99.1 128 22 120/65 (83) 93 Nasal Cannula 2.0 General Appearance: Alert, Awake, No Acute Distress, Afebrile GI: Other (Distended, mild diffuse TTP, no gas and little stool in bag.) Extremities: Warm, Perfused Result Diagram: 11/09/1762611/09/17626 Assessment and Plan Problems: (1) Small bowel obstruction due to postoperative adhesions Status: Acute Assessment & Plan: 10/04/17: Admit, nothing by mouth, IV fluids, bowel rest, conservative management start with. We'll follow his x-rays and NG tube output as well as stoma output. We will hold off on any sort of surgery until he is about 6 weeks out from his initial resection surgery. Hopefully he will respond to conservative management. His last meal was yesterday and his mother reports that he has been eating reasonably well. If he is unable to eat and about 5 or 6 days then we will need to consider a PICC line and starting TPN. I have explained this plan to the patient's mother and she seems to understand and seems to be agreeable with this plan. 10/05/17: Continued small bowel obstruction clinically and radiographically based on his KUB this morning. Will continue conservative management with NG tube decompression, bowel rest, and IV fluids. Continue IV antibiotics for pneumonia. If he fails to get better in the next several days may consider diagnostic laparoscopy with drainage of the pelvic fluid collection and inspection of his small bowel. We'll let his small bowel decompress further before contemplating this. 10/06/17: Will give po gastrograffin and will get CT this afternoon. KUB a little better but not much function from stoma. May need to consider exploratory laparoscopy tomorrow if not getting better. Stoma with white patches and area of necrosis on inferior portion only. Possibly the stoma appliance was cut too tight and pressing on the stoma, will need to follow this. Will add antifungal coverage in case white patches represent fungal infection of stoma although I don't recall every having seen this. Pt still with intermittent low grade fevers on broad spectrum antibiotic coverage so antifungal coverage will broaden that coverage as well. O/W, CCM. 10/07/17: Not much change. No stoma output. KUB has not yet been done this morning. Labs OK. Still with low grade fevers. WBC normal, neutrophil count coming down. CT abd/pelvis yesterday with decreased small bowel distension but still with evidence of SBO, fluid collection in unchanged, no free fluid or air. 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 Will await KUB. Getting to the point where we will need to consider PICC line and starting TPN. May discuss laparoscopic exploration later today; will discuss with patient's mother. 10/08/17: 4 weeks s/p robotic LAR, POD#1 s/p ex-laparoscopy with RILEY and drainage of presacral fluid. Doing well. WBC normal. Will follow fevers/ vitals, etc. Place PICC today to start TPN. Await return of bowel function. 10/09/17: POD2 ex laparoscopy. Awaiting return of bowel function. +BS and minimal NGT output so may be soon. Plan to start TPN on Wednesday. Patient needs to ambulate. Continue abx for pneumonia. Will try to remove perez catheter tomorrow. 10/10/17: POD3 ex laparoscopy. Still awaiting return of bowel function. Clamp NGT till noon and remove if low residuals and in good position on KUB. continue abx, continue perez. dropped MIVF to 75cc/hr. Patient is not participating with therapy. Good bowel sounds so started bowel reg today, senna s/miralax. 10/11/17: POD4 ex laparoscopy. Awaiting bowel function. NGT removed yesterday. Plan PICC/TPN today. Will need swallow eval before taking orals, could not tolerate bowel reg yesterday. May attempt to remove perez today. Ordered labs. 10/12/17: POD#5. Stable. Started TPN yesterday. KUB with gas throughout colon , I suspect we'll start seeing gas in stoma bag in next day or two. Still some dilated small bowel but colon looks better on KUB. Perez out, patient seems to be urinating without problems. CCM until bowel function returns. 6/20/18: POD#6. Doing well but still no evidence of bowel function. Continue bowel rest and TPN. Await return of bowel function. COntinue lovenox and PPI. CCM. 10/14/17: POD#7. Doing well. DAQUAN removed yesterday. KUB continues to improve with gas to distal colon but still no activity from stoma yet. Continue bowel rest and TPN while we await return of bowel function. Continue lovenox and PPI. 10/15/17: POD#8. Doing well but now with mild fevers and intermittent tachycardia. He has no pain and his abdominal exam is benign. Will get CXR and check UA. He's not on abx other than diflucan at this point. Continue bowel rest and TPN until bowel function returns. Continue lovenox, PPI. Hopeful for return of bowel function soon. 10/16/17: POD#9. Appears to be at his baseline. Ambulated with PT yesterday> 100 feet. Urinary incomplete emptying- started on Flomax 10/15. Stoma was irrigated with Fleets Enema by Dr Claudio 10/15 with nothing more out than enema fluid. He has no pain and his abdominal exam is benign. 10/15/17 with T max 100.4- CXR was clear and UA was clear--both improved today. Off abx but remains on Diflucan for ronda appearance of the stoma noted earlier in hospitalization. Will do a trial of Erythromycin for potential bowel dysmotility (secondary to bipolar meds?) Continue bowel rest and TPN until bowel function returns. Continue Lovenox, PPI. 10/17/17: POD#10. Appears to be at his baseline. Ambulated with PT yesterday> 100 feet x 2; stronger. Urinary incomplete emptying- started on Flomax 10/15 and bladder scan was minimal for retained fluid. Started on po erythromycin for dysmotility. Stoma with large gas and small liquid out. Started on clear liquids today. He has no pain and his abdominal exam is benign. Off abx and diflucan now while undergoing trial of Erythromycin. Continue TPN until full bowel function/appetite returns. Continue Lovenox, PPI. 10/17/17 (Addendum @ 1220): Intermittent tachycardia. Peristomal hernia noted upon standing by nursing staff. This has been noted previously. No gas output or liquid output since 0600 this AM. Abdomen remains benign to my exam. Discussed care plan with Dr Claudio and will try another enema today. Will continue erythromycin as a potential pro motility agent. 10/18/17: POD#11. Worsened from GI standpoint. Now with increased abdominal distension with N/V this morning. I stopped erythromycin and backed off on his diet. He had a fever this morning to 101F. Will obtain saucedo-cultures including cultures from his PICC line. Will get CXR, empirically start primaxin. May need to repeat abdominal CT. Will see how he does today and what cultures show , etc reveal. 10/19/17: POD#12. Doing better after Perez, NG tube placed and abx restarted. KUB c/w worsened ileus vs SBO. Fevers to over 101F yesterday, no fevers overnight, HR down this morning. Will repeat CT abd/pelvis today. Continue bowel rest, NG tube, TPN. No growth from cultures yet. 10/20/17: POD#13. Still without bowel function. CT c/w SBO with loop in pelvis and continued small bowel thickening in pelvis. Presacral fluid collection is small. Parastomal hernia but no obstruction. Pt's been afebrile now back on Primaxin. Continue bowel rest, NG tube decompression, TPN. No growth in cultures. Perez out last evening. Will see how he's able to void bladder. Will get SBFT with water-soluble contrast today. 10/21/17: POD#14. Possibly doing better? Having some stool output in bag. NG not putting out too much. Will start NG clamp trials. SBFT yesterday revealed no obstruction but c/w adynamic ileus. Now starting to see gastrograffin in stoma bag. Will try erythromycin as promotility agent. 10/22/17: POD#15. Now with stoma output after gastrograffin SBFT but still with dilated loops of small bowel on KUB. Continue NG clamp trials today and follow KUB. Started erythromycin yesterday, will see how effective this is. Continue bowel rest, TPN, etc until GI function clearly returning to normal. 10/23/17: POD#16. Doing well but KUB still with unchanging dilated loops of small bowel. NG not putting much out and pt tolerating clamp trials so will d/ c NG but will continue bowel rest and TPN. Continue erythromycin. 10/24/17: POD#17. Doing well. NG removed yesterday. Pt doing well. Still with ileus as no gas in bag. Will recheck KUB tomorrow morning. Continue bowel rest. May need to discuss Kg with psychiatry to discuss his medication' s role in prolonged ileus. Continue TPN. 10/25/17: POD#18. Doing well. Now having some gas from stoma. KUB looks a little better this morning with decreased dilated loops of small bowel. Hospital is out of Erythromycin IV and it is on backorder. Will change to PO erythromycin for promotility effects. Will o/w continue bowel rest until more signs of bowel activity since the last time she showed signs of gas and stool from his stoma when he was advanced to clears he became severely distended and we needed to replace his NG tube and resume rx for ileus vs SBO. Continue TPN until tolerating regular diet. 10/26/17: POD#19. Doing well. Increasing gas in stoma bag. Still with dilated loops of small bowel on KUB. Will hold of on diet for now until KUB markedly better and stoma bag consistently with a lot of gas in it (it is intermittent currently) given his previous intolerance to clear diet a couple of weeks ago when he acutely redeveloped his ileus. Continue bowel rest and TPN, continue PO erythromycin for promotility. 10/27/17: POD#20. Doing well. Bowel function improving. Will get KUB tomorrow morning and if small bowel dilation resolved then will slowly advance diet. Continue erythromycin, bowel rest, TPN today. 10/28/17: POD#21. Doing well. No gas in bag this morning. KUB with improving but still dilated loops of small bowel. Will see how his stoma is functioning today. Will change stoma bag to a new one to get a sense of stool output today. Continue bowel rest, TPN, erythromycin today. If he's putting gas/ stool out as today progresses, may try clear diet later today. 10/29/17: POD#22. No stoma activity once again. No gas or stool in bag for last 36-48hrs. Will check KUB this morning. O/W, continue bowel rest, TPN, erythromycin. 7/7/18: POD#23. Still no activity from the stoma. Patient is not in distress and does not have a suspicious abdominal exam. Continue to monitor, continue TPN and NPO. Ambulate. 10/31/17: POD#24: No evidence of nausea, distension or pain in his abdomen. Some slight amount more stool but not a significant amount. Continue TPN and watchful waiting. Patient experienced a non injury fall yesterday with no obvious sequelae. 11/01/17: POD#25. Doing well. Exam benign. Will recheck KUB this morning but still not much stoma activity. Continue TPN. If KUB looks good then may start slowly advancing diet and add bowel regimen such as miralax. 11/02/17: POD#26. Doing well, tolerating small amounts of liquid PO intake and Miralax. Abdominal exam is benign. Continue TPN. Will recheck labs and KUB tomorrow. 11/03/17: POD#27. Doing well. Tolerating small amounts of liquid PO and Miralax. KUB with mildly increased small bowel dilation but clinically he seems to be doing well. Will recheck KUB tomorrow and if it's not getting progressively worse and Kg isn't clinically worsening then will consider SLOWLY advancing his diet. Continue TPN in the mean time. Will convert him to depakote PO this morning. 11/04/17: POD#28. Doing well. Showing signs of improving bowel function and KUB with decreased SB dilation. Doing well on Miralax and colace. Will advance to full clear liquid diet without volume restrictions except will need to restrict his water intake due to his h/o psychogenic polydipsia. If he tolerates this today then will try full liquid diet tomorrow. Will continue TPN until tolerating regular diet. 11/05/17: POD#29. Doing well. Bowel function seems to be improving. Will start full liquid diet today. Continue fluid restriction. Continue Miralax and colace. Continue TPN until tolerating regular diet. 11/06/17: POD#30. Doing well. Had about 50cc out from colostomy. Made NPO yesterday, continue TPN. 11/07/17: POD#31: No changes. will check KUB to assess distention of bowels. If improvement may start clear liquid diet. 11/08/17: POD#32. No improvement. Will ask psychiatry to evaluate and consider medication adjustment in psych meds to improve bowel function. 11/09/17: POD#33. No improvement, continued ileus. Spoke with Dr. Pedraza with psychiatry yesterday and he recommended coming down on olanzapine to 10mg for 2 days then 5mg for 2 days then stop. Will replace NG tube if pt continues with emesis. Will stop PO meds. Continue TPN. (2) Pneumonia Status: Resolved Assessment & Plan: Now Off Antibiotics; Being treated with albuterol for expiratory wheezing (3) Urinary retention with incomplete bladder emptying Status: Chronic Assessment & Plan: Started flomax, will follow response. (4) Bipolar disorder, unspecified Status: Chronic Assessment & Plan: On Home medications (5) ANEMIA IN OTHER CHRONIC DISEASES CLASSIFIED ELSEWHERE Status: Chronic Assessment & Plan: Anemia likely secondary to chronic disease; Monitor (6) Hyponatremia Status: Chronic Assessment & Plan: 10/16/17: Appears to be euvolemic; Can adjust IV Fluids; Monitor 10/17/17: Sodium 132; on fluid restriction. IVF changed to NS from 1/2NS. Monitor (7) Hypoalbuminemia due to protein-calorie malnutrition Status: Chronic Assessment & Plan: Albumin 2.0; On TPN; Remains NPO due to ileus or bowel dysmotility (8) Hypoxia Status: Resolved Assessment & Plan: Remains on 2 liters Nasal Canula; Encourage ambulation/ assisted; Attempt O2 weaning (9) Peristomal hernia Status: Chronic Assessment & Plan: Present on admission exam and CT scan. Does not appear to be the source of his SBO. Easily reducible. Monitor during this acute process but may need repair remotely. Condition Stable. Time Spent: < 30 min Exam Sepsis Risk: No Definite Risk Problem Qualifiers (1) Pneumonia: Pneumonia type: due to unspecified organism Laterality: unspecified laterality Lung location: unspecified part of lung Qualified Codes: J18.9 - Pneumonia, unspecified organism ZACH CLAUDIO MD Nov 09, 2017 07:48
[2017-11-09 08:01] VITALS: BP 119/83
[2017-11-09] MEDS: ENOXAPARIN 40 MG/0.4ML SYR SC SCH (09:15)
[2017-11-09] MEDS: PANTOPRAZOLE SOD 40 MG IV VIAL IVP SCH (09:15)
[2017-11-09] MEDS: DIVALPROEX SOD ER 500 MG TABSR PO SCH ×2 (09:17→20:48)
[2017-11-09 16:15] VITALS: BP 131/79
[2017-11-09] MEDS: [UNRECOGNIZED DRUG - OTHER] IV SCH (18:04)
[2017-11-09] MEDS: FAT EMULSION 20% 250 ML BAG 250 ML IVPB SCH (18:04)
[2017-11-09 19:52] VITALS: BP 129/88
[2017-11-09] MEDS: OLANZapine ZYDIS ODT 5MG TABDP PO SCH (20:48)
[2017-11-10] MEDS: ACETAMINOPHEN(*)1000 MG/100 ML 100 ML IVPB PRN ×4 (01:07→20:27)
[2017-11-10] MEDS: KETOROLAC 30 MG/ML VIAL IVP PRN (04:54)
[2017-11-10 07:37] VITALS: BP 142/88
[2017-11-10] MEDS: PANTOPRAZOLE SOD 40 MG IV VIAL IVP SCH (09:42)
[2017-11-10] MEDS: ENOXAPARIN 40 MG/0.4ML SYR SC SCH (09:42)
[2017-11-10] MEDS: DIVALPROEX SOD ER 500 MG TABSR PO SCH ×2 (09:43→20:40)
[2017-11-10 11:17] VITALS: BP 119/75
[2017-11-10] MEDS: KETOROLAC 15 MG/ML VIAL IVP PRN ×2 (13:04→19:09)
[2017-11-10] MEDS: [UNRECOGNIZED DRUG - OTHER] IV SCH (14:26)
[2017-11-10] MEDS: NS(*) 0.9% 250 ML BAG 250 ML IVPB PRN (14:27)
[2017-11-10] MEDS: FAT EMULSION 20% 250 ML BAG 250 ML IVPB SCH (18:07)
[2017-11-10 20:27] VITALS: BP 128/85
[2017-11-10] MEDS: OLANZapine ZYDIS ODT 5MG TABDP PO SCH (20:40)
[2017-11-10 23:44] VITALS: BP 132/76
[2017-11-11] MEDS: KETOROLAC 15 MG/ML VIAL IVP PRN ×4 (01:12→20:05)
[2017-11-11] MEDS: ACETAMINOPHEN(*)1000 MG/100 ML 100 ML IVPB PRN ×4 (03:03→23:25)
[2017-11-11 05:48] LABS: PLATELET COUNT, AUTOMATED 402 K/uL (150-450)
--- NOTE | 2017-11-11 06:28 | RADIOLOGY IMAGING REPORT ---
FACILITY: [facility] PATIENT NAME: Matthew Roth : 1960 MR: [id number] V: [id number] EXAM DATE: ORDERING PHYSICIAN: ZACH CLAUDIO TECHNOLOGIST: Location: [facility] Patient: Matthew Roth : 1960 Visit/Account:[id number] Date of Sevice: 11/11/2017 KUB SINGLE VIEW ABDOMEN COMPARISONS: Views of the abdomen dated November 09, 2017 ADDITIONAL PERTINENT HISTORY: Ileus FINDINGS: Lung bases: Negative. Supine evidence of free air: None. Bowel gas pattern: Slightly improved but persistent distended loops of small and large bowel compatib le with an underlying ileus. Surrounding soft tissues and solid organs: Negative. Osseous structures: Negative. IMPRESSION: 1. Slightly improved but persistent ileus. Report Dictated By: Jeffry Kang MD at 11/11/2017 6:23 AM Report E-Signed By: Jeffry Kang MD at 11/11/2017 6:24 AM WSN:[id number]
--- NOTE | 2017-11-11 06:56 | General Surgery Progress Note ---
Subjective Progress Notes Subjective No complaints this morning, very anxious Physical Exam Vital Signs Date Time Temp Pulse Resp B/P (MAP) Pulse Ox O2 Delivery O2 Flow Rate FiO2 11/11/17 03:04 98.4 11/10/17 23:44 96 36 132/76 (94) 89 Nasal Cannula 2.5 General Appearance: Alert, Awake, No Acute Distress, Afebrile GI: Soft and Non-Tender (Stoma is pink with small amount of stool in bag, no gas in bag) Extremities: Warm, Perfused Result Diagram: 11/11/17 0511/11/17528 Assessment and Plan Problems: (1) Small bowel obstruction due to postoperative adhesions Status: Acute Assessment & Plan: 10/04/17: Admit, nothing by mouth, IV fluids, bowel rest, conservative management start with. We'll follow his x-rays and NG tube output as well as stoma output. We will hold off on any sort of surgery until he is about 6 weeks out from his initial resection surgery. Hopefully he will respond to conservative management. His last meal was yesterday and his mother reports that he has been eating reasonably well. If he is unable to eat and about 5 or 6 days then we will need to consider a PICC line and starting TPN. I have explained this plan to the patient's mother and she seems to understand and seems to be agreeable with this plan. 10/05/17: Continued small bowel obstruction clinically and radiographically based on his KUB this morning. Will continue conservative management with NG tube decompression, bowel rest, and IV fluids. Continue IV antibiotics for pneumonia. If he fails to get better in the next several days may consider diagnostic laparoscopy with drainage of the pelvic fluid collection and inspection of his small bowel. We'll let his small bowel decompress further before contemplating this. 10/06/17: Will give po gastrograffin and will get CT this afternoon. KUB a little better but not much function from stoma. May need to consider exploratory laparoscopy tomorrow if not getting better. Stoma with white patches and area of necrosis on inferior portion only. Possibly the stoma appliance was cut too tight and pressing on the stoma, will need to follow this. Will add antifungal coverage in case white patches represent fungal infection of stoma although I don't recall every having seen this. Pt still with intermittent low grade fevers on broad spectrum antibiotic coverage so antifungal coverage will broaden that coverage as well. O/W, CCM. 10/07/17: Not much change. No stoma output. KUB has not yet been done this morning. Labs OK. Still with low grade fevers. WBC normal, neutrophil count coming down. CT abd/pelvis yesterday with decreased small bowel distension but still with evidence of SBO, fluid collection in unchanged, no free fluid or air. 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 Will await KUB. Getting to the point where we will need to consider PICC line and starting TPN. May discuss laparoscopic exploration later today; will discuss with patient's mother. 10/08/17: 4 weeks s/p robotic LAR, POD#1 s/p ex-laparoscopy with RILEY and drainage of presacral fluid. Doing well. WBC normal. Will follow fevers/ vitals, etc. Place PICC today to start TPN. Await return of bowel function. 10/09/17: POD2 ex laparoscopy. Awaiting return of bowel function. +BS and minimal NGT output so may be soon. Plan to start TPN on Wednesday. Patient needs to ambulate. Continue abx for pneumonia. Will try to remove perez catheter tomorrow. 10/10/17: POD3 ex laparoscopy. Still awaiting return of bowel function. Clamp NGT till noon and remove if low residuals and in good position on KUB. continue abx, continue perez. dropped MIVF to 75cc/hr. Patient is not participating with therapy. Good bowel sounds so started bowel reg today, senna s/miralax. 10/11/17: POD4 ex laparoscopy. Awaiting bowel function. NGT removed yesterday. Plan PICC/TPN today. Will need swallow eval before taking orals, could not tolerate bowel reg yesterday. May attempt to remove perez today. Ordered labs. 10/12/17: POD#5. Stable. Started TPN yesterday. KUB with gas throughout colon , I suspect we'll start seeing gas in stoma bag in next day or two. Still some dilated small bowel but colon looks better on KUB. Perez out, patient seems to be urinating without problems. CCM until bowel function returns. 10/13/17: POD#6. Doing well but still no evidence of bowel function. Continue bowel rest and TPN. Await return of bowel function. COntinue lovenox and PPI. CCM. 10/14/17: POD#7. Doing well. DAQUAN removed yesterday. KUB continues to improve with gas to distal colon but still no activity from stoma yet. Continue bowel rest and TPN while we await return of bowel function. Continue lovenox and PPI. 10/15/17: POD#8. Doing well but now with mild fevers and intermittent tachycardia. He has no pain and his abdominal exam is benign. Will get CXR and check UA. He's not on abx other than diflucan at this point. Continue bowel rest and TPN until bowel function returns. Continue lovenox, PPI. Hopeful for return of bowel function soon. 10/16/17: POD#9. Appears to be at his baseline. Ambulated with PT yesterday> 100 feet. Urinary incomplete emptying- started on Flomax 10/15. Stoma was irrigated with Fleets Enema by Dr Claudio 10/15 with nothing more out than enema fluid. He has no pain and his abdominal exam is benign. 10/15/17 with T max 100.4- CXR was clear and UA was clear--both improved today. Off abx but remains on Diflucan for ronda appearance of the stoma noted earlier in hospitalization. Will do a trial of Erythromycin for potential bowel dysmotility (secondary to bipolar meds?) Continue bowel rest and TPN until bowel function returns. Continue Lovenox, PPI. 10/17/17: POD#10. Appears to be at his baseline. Ambulated with PT yesterday> 100 feet x 2; stronger. Urinary incomplete emptying- started on Flomax 10/15 and bladder scan was minimal for retained fluid. Started on po erythromycin for dysmotility. Stoma with large gas and small liquid out. Started on clear liquids today. He has no pain and his abdominal exam is benign. Off abx and diflucan now while undergoing trial of Erythromycin. Continue TPN until full bowel function/appetite returns. Continue Lovenox, PPI. 10/17/17 (Addendum @ 1220): Intermittent tachycardia. Peristomal hernia noted upon standing by nursing staff. This has been noted previously. No gas output or liquid output since 0600 this AM. Abdomen remains benign to my exam. Discussed care plan with Dr Claudio and will try another enema today. Will continue erythromycin as a potential pro motility agent. 10/18/17: POD#11. Worsened from GI standpoint. Now with increased abdominal distension with N/V this morning. I stopped erythromycin and backed off on his diet. He had a fever this morning to 101F. Will obtain saucedo-cultures including cultures from his PICC line. Will get CXR, empirically start primaxin. May need to repeat abdominal CT. Will see how he does today and what cultures show , etc reveal. 10/19/17: POD#12. Doing better after Perez, NG tube placed and abx restarted. KUB c/w worsened ileus vs SBO. Fevers to over 101F yesterday, no fevers overnight, HR down this morning. Will repeat CT abd/pelvis today. Continue bowel rest, NG tube, TPN. No growth from cultures yet. 10/20/17: POD#13. Still without bowel function. CT c/w SBO with loop in pelvis and continued small bowel thickening in pelvis. Presacral fluid collection is small. Parastomal hernia but no obstruction. Pt's been afebrile now back on Primaxin. Continue bowel rest, NG tube decompression, TPN. No growth in cultures. Perez out last evening. Will see how he's able to void bladder. Will get SBFT with water-soluble contrast today. 10/21/17: POD#14. Possibly doing better? Having some stool output in bag. NG not putting out too much. Will start NG clamp trials. SBFT yesterday revealed no obstruction but c/w adynamic ileus. Now starting to see gastrograffin in stoma bag. Will try erythromycin as promotility agent. 10/22/17: POD#15. Now with stoma output after gastrograffin SBFT but still with dilated loops of small bowel on KUB. Continue NG clamp trials today and follow KUB. Started erythromycin yesterday, will see how effective this is. Continue bowel rest, TPN, etc until GI function clearly returning to normal. 10/23/17: POD#16. Doing well but KUB still with unchanging dilated loops of small bowel. NG not putting much out and pt tolerating clamp trials so will d/ c NG but will continue bowel rest and TPN. Continue erythromycin. 10/24/17: POD#17. Doing well. NG removed yesterday. Pt doing well. Still with ileus as no gas in bag. Will recheck KUB tomorrow morning. Continue bowel rest. May need to discuss Kg with psychiatry to discuss his medication' s role in prolonged ileus. Continue TPN. 10/25/17: POD#18. Doing well. Now having some gas from stoma. KUB looks a little better this morning with decreased dilated loops of small bowel. Hospital is out of Erythromycin IV and it is on backorder. Will change to PO erythromycin for promotility effects. Will o/w continue bowel rest until more signs of bowel activity since the last time she showed signs of gas and stool from his stoma when he was advanced to clears he became severely distended and we needed to replace his NG tube and resume rx for ileus vs SBO. Continue TPN until tolerating regular diet. 10/26/17: POD#19. Doing well. Increasing gas in stoma bag. Still with dilated loops of small bowel on KUB. Will hold of on diet for now until KUB markedly better and stoma bag consistently with a lot of gas in it (it is intermittent currently) given his previous intolerance to clear diet a couple of weeks ago when he acutely redeveloped his ileus. Continue bowel rest and TPN, continue PO erythromycin for promotility. 10/27/17: POD#20. Doing well. Bowel function improving. Will get KUB tomorrow morning and if small bowel dilation resolved then will slowly advance diet. Continue erythromycin, bowel rest, TPN today. 10/28/17: POD#21. Doing well. No gas in bag this morning. KUB with improving but still dilated loops of small bowel. Will see how his stoma is functioning today. Will change stoma bag to a new one to get a sense of stool output today. Continue bowel rest, TPN, erythromycin today. If he's putting gas/ stool out as today progresses, may try clear diet later today. 10/29/17: POD#22. No stoma activity once again. No gas or stool in bag for last 36-48hrs. Will check KUB this morning. O/W, continue bowel rest, TPN, erythromycin. 10/30/17: POD#23. Still no activity from the stoma. Patient is not in distress and does not have a suspicious abdominal exam. Continue to monitor, continue TPN and NPO. Ambulate. 10/31/17: POD#24: No evidence of nausea, distension or pain in his abdomen. Some slight amount more stool but not a significant amount. Continue TPN and watchful waiting. Patient experienced a non injury fall yesterday with no obvious sequelae. 11/01/17: POD#25. Doing well. Exam benign. Will recheck KUB this morning but still not much stoma activity. Continue TPN. If KUB looks good then may start slowly advancing diet and add bowel regimen such as miralax. 11/02/17: POD#26. Doing well, tolerating small amounts of liquid PO intake and Miralax. Abdominal exam is benign. Continue TPN. Will recheck labs and KUB tomorrow. 11/03/17: POD#27. Doing well. Tolerating small amounts of liquid PO and Miralax. KUB with mildly increased small bowel dilation but clinically he seems to be doing well. Will recheck KUB tomorrow and if it's not getting progressively worse and Kg isn't clinically worsening then will consider SLOWLY advancing his diet. Continue TPN in the mean time. Will convert him to depakote PO this morning. 11/04/17: POD#28. Doing well. Showing signs of improving bowel function and KUB with decreased SB dilation. Doing well on Miralax and colace. Will advance to full clear liquid diet without volume restrictions except will need to restrict his water intake due to his h/o psychogenic polydipsia. If he tolerates this today then will try full liquid diet tomorrow. Will continue TPN until tolerating regular diet. 11/05/17: POD#29. Doing well. Bowel function seems to be improving. Will start full liquid diet today. Continue fluid restriction. Continue Miralax and colace. Continue TPN until tolerating regular diet. 11/06/17: POD#30. Doing well. Had about 50cc out from colostomy. Made NPO yesterday, continue TPN. 11/07/17: POD#31: No changes. will check KUB to assess distention of bowels. If improvement may start clear liquid diet. 11/08/17: POD#32. No improvement. Will ask psychiatry to evaluate and consider medication adjustment in psych meds to improve bowel function. 18: POD#33. No improvement, continued ileus. Spoke with Dr. Pedraza with psychiatry yesterday and he recommended coming down on olanzapine to 10mg for 2 days then 5mg for 2 days then stop. Will replace NG tube if pt continues with emesis. Will stop PO meds. Continue TPN. 11/10/17: POD#34. No signs of improved bowel function this morning. Will continue to come down on olanzapine and follow bowel function. Continue bowel rest and TPN. 11/11/17: POD#35. KUB a little better but clinically not improving yet. Continue to come down on olanzapine. Will get 2nd day of 5mg tonight and then will stop it and monitor bowel function. Continue bowel rest and TPN. (2) Pneumonia Status: Resolved Assessment & Plan: Now Off Antibiotics; Being treated with albuterol for expiratory wheezing (3) Urinary retention with incomplete bladder emptying Status: Chronic Assessment & Plan: Started flomax, will follow response. (4) Bipolar disorder, unspecified Status: Chronic Assessment & Plan: On Home medications (5) ANEMIA IN OTHER CHRONIC DISEASES CLASSIFIED ELSEWHERE Status: Chronic Assessment & Plan: Anemia likely secondary to chronic disease; Monitor (6) Hyponatremia Status: Chronic Assessment & Plan: 10/16/17: Appears to be euvolemic; Can adjust IV Fluids; Monitor 10/17/17: Sodium 132; on fluid restriction. IVF changed to NS from 2NS. Monitor (7) Hypoalbuminemia due to protein-calorie malnutrition Status: Chronic Assessment & Plan: Albumin 2.0; On TPN; Remains NPO due to ileus or bowel dysmotility (8) Hypoxia Status: Resolved Assessment & Plan: Remains on 2 liters Nasal Canula; Encourage ambulation/ assisted; Attempt O2 weaning (9) Peristomal hernia Status: Chronic Assessment & Plan: Present on admission exam and CT scan. Does not appear to be the source of his SBO. Easily reducible. Monitor during this acute process but may need repair remotely. Condition Stable. Time Spent: < 30 min Exam Sepsis Risk: Sepsis Risk Problem Qualifiers (1) Pneumonia: Pneumonia type: due to unspecified organism Laterality: unspecified laterality Lung location: unspecified part of lung Qualified Codes: J18.9 - Pneumonia, unspecified organism ZACH CLAUDIO MD Nov 11, 2017 06:56
[2017-11-11 07:41] VITALS: BP 116/71
[2017-11-11] MEDS: ENOXAPARIN 40 MG/0.4ML SYR SC SCH (09:55)
[2017-11-11] MEDS: DIVALPROEX SOD ER 500 MG TABSR PO SCH ×2 (09:55→22:10)
[2017-11-11] MEDS: PANTOPRAZOLE SOD 40 MG IV VIAL IVP SCH (09:55)
[2017-11-11] MEDS: [UNRECOGNIZED DRUG - OTHER] IV SCH (10:15)
[2017-11-11 15:34] VITALS: BP 134/90
[2017-11-11] MEDS: FAT EMULSION 20% 250 ML BAG 250 ML IVPB SCH (18:06)
[2017-11-11 20:03] VITALS: BP 109/69
[2017-11-11] MEDS: OLANZapine ZYDIS ODT 5MG TABDP PO SCH (20:54)
--- NOTE | 2017-11-11 21:15 | RADIOLOGY IMAGING REPORT ---
FACILITY: [facility] - [place], [place] PATIENT NAME: Matthew Roth : 1960 MR: [id number] V: [id number] EXAM DATE: ORDERING PHYSICIAN: ZACH CLAUDIO TECHNOLOGIST: Location: [facility] Patient: Matthew Roth : 1960 Visit/Account:[id number] Date of Sevice: 11/11/2017 AP CHEST 11/11/2017 8:45 PM. INDICATION: Shortness of breath and tachypnea. COMPARISON: 10/18/2017. FINDINGS: Left upper extremity PICC terminates in the superior vena cava. Patient is tilted to the left. Lungs are well-expanded. There is slight asymmetric hazy opacification over the right base with possible associated bronchial wall thickening. No pleural effusion or pneumothorax. Heart size is normal. IMPRESSION: Hazy opacification and possible bronchial wall thickening over the right base could indic ate underlying pneumonia. This may be partly technical due to positioning of the patient. If indica edmund, consider dedicated PA and lateral chest radiographs. Report Dictated By: Bill Roman MD at 11/11/2017 9:08 PM Report E-Signed By: Bill Roman MD at 11/11/2017 9:12 PM WSN:[id number]
[2017-11-11 23:22] VITALS: BP 141/79
[2017-11-12 02:50] VITALS: BP 152/83
[2017-11-12] MEDS: KETOROLAC 15 MG/ML VIAL IVP PRN ×4 (02:54→22:26)
[2017-11-12] MEDS: NS(*) 0.9% 250 ML BAG 250 ML IVPB PRN (05:38)
[2017-11-12] MEDS: ACETAMINOPHEN(*)1000 MG/100 ML 100 ML IVPB PRN ×3 (05:38→18:45)
[2017-11-12 05:43] LABS: PLATELET COUNT, AUTOMATED 423 K/uL (150-450)
--- NOTE | 2017-11-12 06:24 | RADIOLOGY IMAGING REPORT ---
[place] [facility] [place]: [place] Roth : 1960 MR: [id number] V: [id number] EXAM DATE: ORDERING PHYSICIAN: ZACH CLAUDIO TECHNOLOGIST: Location: [facility] [place] Patient: Matthew Roth : 1960 Visit/Account:[id number] Date of Sevice: 11/12/2017 KUB SINGLE VIEW ABDOMEN COMPARISONS: Single view the abdomen dated November 11, 2017 ADDITIONAL PERTINENT HISTORY: Ileus FINDINGS: Lung bases: Not imaged Supine evidence of free air: None. Bowel gas pattern: Improving dilated loops of small and large bowel compatible with a resolving ileus . Surrounding soft tissues and solid organs: Negative. Osseous structures: Mild osteoarthritic changes involving both hips. IMPRESSION: 1. Interval improvement in the underlying ileus. 2. No new findings from previous exam. Report Dictated By: Jeffry Kang MD at 11/12/2017 6:18 AM Report E-Signed By: Jeffry Kang MD at 11/12/2017 6:20 AM WSN:[id number]
--- NOTE | 2017-11-12 06:35 | RADIOLOGY IMAGING REPORT ---
FACILITY: [facility] PATIENT NAME: Matthew Roth : 1960 MR: [id number] V: [id number] EXAM DATE: ORDERING PHYSICIAN: ZACH CLAUDIO TECHNOLOGIST: Location: [facility] Patient: Matthew Roth : 1960 Visit/Account:[id number] Date of Sevice: 11/12/2017 CHEST SINGLE AP COMPARISONS: Single view chest dated November 11, 2017 ADDITIONAL PERTINENT HISTORY: Shortness of breath and fever FINDINGS: Life-support: Left-sided PICC line with its tip in the mid SVC. Cardiomediastinal silhouette: Negative. Pulmonary vasculature: Mild atherosclerotic disease of the thoracic aortic arch. Lung torres: Persistent areas of patchy opacity at the right lung base. Interval development of patc hy infiltrate involving the right upper lobe and the left lower lobe concerning for developing multif ocal pneumonia. Pleural spaces: Negative. Osseous structures: Negative. Surrounding soft tissues: Negative. IMPRESSION: 1. Findings concerning for interval development of multifocal pneumonia. Report Dictated By: Jeffry Kang MD at 11/12/2017 6:29 AM Report E-Signed By: Jeffry Kang MD at 11/12/2017 6:31 AM WSN:[id number]
--- NOTE | 2017-11-12 07:01 | General Surgery Progress Note ---
Subjective Progress Notes Subjective No complaints. Physical Exam Vital Signs Date Time Temp Pulse Resp B/P (MAP) Pulse Ox O2 Delivery O2 Flow Rate FiO2 11/12/17 02:50 98.5 92 28 152/83 (106) 94 Nasal Cannula 4.0 General Appearance: Alert, Awake, No Acute Distress, Afebrile Respiratory: Other (Coarse BS bilaterally) GI: Soft and Non-Tender (Stoma is pink with small stool and no gas in bag.) Extremities: Warm, Perfused Result Diagram: 11/12/1751411/12/17514 Assessment and Plan Problems: (1) Small bowel obstruction due to postoperative adhesions Status: Acute Assessment & Plan: 10/04/17: Admit, nothing by mouth, IV fluids, bowel rest, conservative management start with. We'll follow his x-rays and NG tube output as well as stoma output. We will hold off on any sort of surgery until he is about 6 weeks out from his initial resection surgery. Hopefully he will respond to conservative management. His last meal was yesterday and his mother reports that he has been eating reasonably well. If he is unable to eat and about 5 or 6 days then we will need to consider a PICC line and starting TPN. I have explained this plan to the patient's mother and she seems to understand and seems to be agreeable with this plan. 10/05/17: Continued small bowel obstruction clinically and radiographically based on his KUB this morning. Will continue conservative management with NG tube decompression, bowel rest, and IV fluids. Continue IV antibiotics for pneumonia. If he fails to get better in the next several days may consider diagnostic laparoscopy with drainage of the pelvic fluid collection and inspection of his small bowel. We'll let his small bowel decompress further before contemplating this. 10/06/17: Will give po gastrograffin and will get CT this afternoon. KUB a little better but not much function from stoma. May need to consider exploratory laparoscopy tomorrow if not getting better. Stoma with white patches and area of necrosis on inferior portion only. Possibly the stoma appliance was cut too tight and pressing on the stoma, will need to follow this. Will add antifungal coverage in case white patches represent fungal infection of stoma although I don't recall every having seen this. Pt still with intermittent low grade fevers on broad spectrum antibiotic coverage so antifungal coverage will broaden that coverage as well. O/W, CCM. 10/07/17: Not much change. No stoma output. KUB has not yet been done this morning. Labs OK. Still with low grade fevers. WBC normal, neutrophil count coming down. CT abd/pelvis yesterday with decreased small bowel distension but still with evidence of SBO, fluid collection in unchanged, no free fluid or air. 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 Will await KUB. Getting to the point where we will need to consider PICC line and starting TPN. May discuss laparoscopic exploration later today; will discuss with patient's mother. 10/08/17: 4 weeks s/p robotic LAR, POD#1 s/p ex-laparoscopy with RILEY and drainage of presacral fluid. Doing well. WBC normal. Will follow fevers/ vitals, etc. Place PICC today to start TPN. Await return of bowel function. 10/09/17: POD2 ex laparoscopy. Awaiting return of bowel function. +BS and minimal NGT output so may be soon. Plan to start TPN on Wednesday. Patient needs to ambulate. Continue abx for pneumonia. Will try to remove perez catheter tomorrow. 10/10/17: POD3 ex laparoscopy. Still awaiting return of bowel function. Clamp NGT till noon and remove if low residuals and in good position on KUB. continue abx, continue perez. dropped MIVF to 75cc/hr. Patient is not participating with therapy. Good bowel sounds so started bowel reg today, senna s/miralax. 10/11/17: POD4 ex laparoscopy. Awaiting bowel function. NGT removed yesterday. Plan PICC/TPN today. Will need swallow eval before taking orals, could not tolerate bowel reg yesterday. May attempt to remove perez today. Ordered labs. 10/12/17: POD#5. Stable. Started TPN yesterday. KUB with gas throughout colon , I suspect we'll start seeing gas in stoma bag in next day or two. Still some dilated small bowel but colon looks better on KUB. Perez out, patient seems to be urinating without problems. CCM until bowel function returns. 10/13/17: POD#6. Doing well but still no evidence of bowel function. Continue bowel rest and TPN. Await return of bowel function. COntinue lovenox and PPI. CCM. 10/14/17: POD#7. Doing well. DAQUAN removed yesterday. KUB continues to improve with gas to distal colon but still no activity from stoma yet. Continue bowel rest and TPN while we await return of bowel function. Continue lovenox and PPI. 10/15/17: POD#8. Doing well but now with mild fevers and intermittent tachycardia. He has no pain and his abdominal exam is benign. Will get CXR and check UA. He's not on abx other than diflucan at this point. Continue bowel rest and TPN until bowel function returns. Continue lovenox, PPI. Hopeful for return of bowel function soon. 10/16/17: POD#9. Appears to be at his baseline. Ambulated with PT yesterday> 100 feet. Urinary incomplete emptying- started on Flomax 10/15. Stoma was irrigated with Fleets Enema by Dr Claudio 10/15 with nothing more out than enema fluid. He has no pain and his abdominal exam is benign. 10/15/17 with T max 100.4- CXR was clear and UA was clear--both improved today. Off abx but remains on Diflucan for ronda appearance of the stoma noted earlier in hospitalization. Will do a trial of Erythromycin for potential bowel dysmotility (secondary to bipolar meds?) Continue bowel rest and TPN until bowel function returns. Continue Lovenox, PPI. 10/17/17: POD#10. Appears to be at his baseline. Ambulated with PT yesterday> 100 feet x 2; stronger. Urinary incomplete emptying- started on Flomax 10/15 and bladder scan was minimal for retained fluid. Started on po erythromycin for dysmotility. Stoma with large gas and small liquid out. Started on clear liquids today. He has no pain and his abdominal exam is benign. Off abx and diflucan now while undergoing trial of Erythromycin. Continue TPN until full bowel function/appetite returns. Continue Lovenox, PPI. 10/17/17 (Addendum @ 1220): Intermittent tachycardia. Peristomal hernia noted upon standing by nursing staff. This has been noted previously. No gas output or liquid output since 0600 this AM. Abdomen remains benign to my exam. Discussed care plan with Dr Claudio and will try another enema today. Will continue erythromycin as a potential pro motility agent. 10/18/17: POD#11. Worsened from GI standpoint. Now with increased abdominal distension with N/V this morning. I stopped erythromycin and backed off on his diet. He had a fever this morning to 101F. Will obtain saucedo-cultures including cultures from his PICC line. Will get CXR, empirically start primaxin. May need to repeat abdominal CT. Will see how he does today and what cultures show , etc reveal. 10/19/17: POD#12. Doing better after Perez, NG tube placed and abx restarted. KUB c/w worsened ileus vs SBO. Fevers to over 101F yesterday, no fevers overnight, HR down this morning. Will repeat CT abd/pelvis today. Continue bowel rest, NG tube, TPN. No growth from cultures yet. 10/20/17: POD#13. Still without bowel function. CT c/w SBO with loop in pelvis and continued small bowel thickening in pelvis. Presacral fluid collection is small. Parastomal hernia but no obstruction. Pt's been afebrile now back on Primaxin. Continue bowel rest, NG tube decompression, TPN. No growth in cultures. Perez out last evening. Will see how he's able to void bladder. Will get SBFT with water-soluble contrast today. 10/21/17: POD#14. Possibly doing better? Having some stool output in bag. NG not putting out too much. Will start NG clamp trials. SBFT yesterday revealed no obstruction but c/w adynamic ileus. Now starting to see gastrograffin in stoma bag. Will try erythromycin as promotility agent. 10/22/17: POD#15. Now with stoma output after gastrograffin SBFT but still with dilated loops of small bowel on KUB. Continue NG clamp trials today and follow KUB. Started erythromycin yesterday, will see how effective this is. Continue bowel rest, TPN, etc until GI function clearly returning to normal. 10/23/17: POD#16. Doing well but KUB still with unchanging dilated loops of small bowel. NG not putting much out and pt tolerating clamp trials so will d/ c NG but will continue bowel rest and TPN. Continue erythromycin. 10/24/17: POD#17. Doing well. NG removed yesterday. Pt doing well. Still with ileus as no gas in bag. Will recheck KUB tomorrow morning. Continue bowel rest. May need to discuss Kg with psychiatry to discuss his medication' s role in prolonged ileus. Continue TPN. 10/25/17: POD#18. Doing well. Now having some gas from stoma. KUB looks a little better this morning with decreased dilated loops of small bowel. Hospital is out of Erythromycin IV and it is on backorder. Will change to PO erythromycin for promotility effects. Will o/w continue bowel rest until more signs of bowel activity since the last time she showed signs of gas and stool from his stoma when he was advanced to clears he became severely distended and we needed to replace his NG tube and resume rx for ileus vs SBO. Continue TPN until tolerating regular diet. 10/26/17: POD#19. Doing well. Increasing gas in stoma bag. Still with dilated loops of small bowel on KUB. Will hold of on diet for now until KUB markedly better and stoma bag consistently with a lot of gas in it (it is intermittent currently) given his previous intolerance to clear diet a couple of weeks ago when he acutely redeveloped his ileus. Continue bowel rest and TPN, continue PO erythromycin for promotility. 10/27/17: POD#20. Doing well. Bowel function improving. Will get KUB tomorrow morning and if small bowel dilation resolved then will slowly advance diet. Continue erythromycin, bowel rest, TPN today. 10/28/17: POD#21. Doing well. No gas in bag this morning. KUB with improving but still dilated loops of small bowel. Will see how his stoma is functioning today. Will change stoma bag to a new one to get a sense of stool output today. Continue bowel rest, TPN, erythromycin today. If he's putting gas/ stool out as today progresses, may try clear diet later today. 10/29/17: POD#22. No stoma activity once again. No gas or stool in bag for last 36-48hrs. Will check KUB this morning. O/W, continue bowel rest, TPN, erythromycin. 10/30/17: POD#23. Still no activity from the stoma. Patient is not in distress and does not have a suspicious abdominal exam. Continue to monitor, continue TPN and NPO. Ambulate. 10/31/17: POD#24: No evidence of nausea, distension or pain in his abdomen. Some slight amount more stool but not a significant amount. Continue TPN and watchful waiting. Patient experienced a non injury fall yesterday with no obvious sequelae. 11/01/17: POD#25. Doing well. Exam benign. Will recheck KUB this morning but still not much stoma activity. Continue TPN. If KUB looks good then may start slowly advancing diet and add bowel regimen such as miralax. 11/02/17: POD#26. Doing well, tolerating small amounts of liquid PO intake and Miralax. Abdominal exam is benign. Continue TPN. Will recheck labs and KUB tomorrow. 11/03/17: POD#27. Doing well. Tolerating small amounts of liquid PO and Miralax. KUB with mildly increased small bowel dilation but clinically he seems to be doing well. Will recheck KUB tomorrow and if it's not getting progressively worse and Kg isn't clinically worsening then will consider SLOWLY advancing his diet. Continue TPN in the mean time. Will convert him to depakote PO this morning. 11/04/17: POD#28. Doing well. Showing signs of improving bowel function and KUB with decreased SB dilation. Doing well on Miralax and colace. Will advance to full clear liquid diet without volume restrictions except will need to restrict his water intake due to his h/o psychogenic polydipsia. If he tolerates this today then will try full liquid diet tomorrow. Will continue TPN until tolerating regular diet. 11/05/17: POD#29. Doing well. Bowel function seems to be improving. Will start full liquid diet today. Continue fluid restriction. Continue Miralax and colace. Continue TPN until tolerating regular diet. 11/06/17: POD#30. Doing well. Had about 50cc out from colostomy. Made NPO yesterday, continue TPN. 11/07/17: POD#31: No changes. will check KUB to assess distention of bowels. If improvement may start clear liquid diet. 11/08/17: POD#32. No improvement. Will ask psychiatry to evaluate and consider medication adjustment in psych meds to improve bowel function. 11/09/17: POD#33. No improvement, continued ileus. Spoke with Dr. Pedraza with psychiatry yesterday and he recommended coming down on olanzapine to 10mg for 2 days then 5mg for 2 days then stop. Will replace NG tube if pt continues with emesis. Will stop PO meds. Continue TPN. 11/10/17: POD#34. No signs of improved bowel function this morning. Will continue to come down on olanzapine and follow bowel function. Continue bowel rest and TPN. 11/11/17: POD#35. KUB a little better but clinically not improving yet. Continue to come down on olanzapine. Will get 2nd day of 5mg tonight and then will stop it and monitor bowel function. Continue bowel rest and TPN. 11/12/17: POD#36. KUB with continued improvement. He's developed a rattle in his chest and a productive cough and CXR c/w PNA. Will ask Hospitalists to consult to direct abx coverage. Will stop olanzapine today and monitor bowel function. Continue bowel rest and TPN until bowel function clearly returns. (2) Pneumonia Status: Acute Assessment & Plan: Hospitalist consultation to start appropriate empiric abx coverage for HAP. (3) Urinary retention with incomplete bladder emptying Status: Chronic Assessment & Plan: Started flomax, will follow response. (4) Bipolar disorder, unspecified Status: Chronic Assessment & Plan: On Home medications (5) ANEMIA IN OTHER CHRONIC DISEASES CLASSIFIED ELSEWHERE Status: Chronic Assessment & Plan: Anemia likely secondary to chronic disease; Monitor (6) Hyponatremia Status: Chronic Assessment & Plan: 10/16/17: Appears to be euvolemic; Can adjust IV Fluids; Monitor 10/17/17: Sodium 132; on fluid restriction. IVF changed to NS from 2NS. Monitor (7) Hypoalbuminemia due to protein-calorie malnutrition Status: Chronic Assessment & Plan: Albumin 2.0; On TPN; Remains NPO due to ileus or bowel dysmotility (8) Hypoxia Status: Resolved Assessment & Plan: Remains on 2 liters Nasal Canula; Encourage ambulation/ assisted; Attempt O2 weaning (9) Peristomal hernia Status: Chronic Assessment & Plan: Present on admission exam and CT scan. Does not appear to be the source of his SBO. Easily reducible. Monitor during this acute process but may need repair remotely. Condition Stable. Time Spent: < 30 min Exam Sepsis Risk: Sepsis Risk Problem Qualifiers (1) Pneumonia: Pneumonia type: due to unspecified organism Laterality: unspecified laterality Lung location: unspecified part of lung Qualified Codes: J18.9 - Pneumonia, unspecified organism ZACH CLAUDIO MD Nov 12, 2017 07:01
[2017-11-12] MEDS: DIVALPROEX SOD ER 500 MG TABSR PO SCH ×2 (09:00→21:21)
[2017-11-12 09:21] VITALS: BP 118/71
[2017-11-12] MEDS: ENOXAPARIN 40 MG/0.4ML SYR SC SCH (09:26)
[2017-11-12] MEDS: [UNRECOGNIZED DRUG - OTHER] IV SCH (09:26)
[2017-11-12] MEDS: PANTOPRAZOLE SOD 40 MG IV VIAL IVP SCH (09:27)
--- NOTE | 2017-11-12 09:44 | Hospitalist Consultation ---
History of Present Illness Requesting Physician Jude Reason for Consult Abnormal chest x-ray. History of Present Illness This patient was admitted for small bowel obstruction and has had a complicated course with ileus. He did complete a course of IV Primaxin earlier in the admission for pneumonia. We are consulted today regarding a chest x-ray report of developing pneumonia. He has not complained of significant cough or shortness of breath. He did have a fever 48hrs ago, but has been afebrile since. History Problems: (1) Bipolar disorder, unspecified Status: Chronic (2) Hyperlipidemia Status: Chronic (3) Rectal cancer Status: Chronic (4) Psychogenic polydipsia Status: Chronic Home Meds Reported Medications Olanzapine (OLANZAPINE) 20 Mg Tablet, 20 MG PO QHS 11/06/16 Divalproex Sodium (DEPAKOTE) 500 Mg Tablet.dr, 1000 MG PO QHS, TAB 11/06/16 Divalproex Sodium (DEPAKOTE) 500 Mg Tablet.dr, 500 MG PO QAM, TAB 11/06/16 Allergies: Coded Allergies: Penicillins (Verified Allergy, Unknown, 10/04/17) Patient History: FH: colon cancer MOTHER FH: depression MOTHER FH: heart disease FATHER FH: thyroid disease FATHER BROTHER OR SISTER Unobtainable due to patient's condition Hx Smoking: Yes (1 PPD X 30 YRS ) Smoking Status: Heavy Tobacco Smoker Exposure to Second Hand Smoke?: No Caffeine Intake: Coffee, Tea Caffeine/Cups Per Day: 2 Hx Alcohol Use: Yes Hx Substance Use Disorder: Yes (Pt unwilling to provide additional information) Social Drug Use: Former Social Drugs: Marijuana Review of Systems All Systems Reviewed/Normal: Yes Exam Vital Signs Vital Signs Date Time Temp Pulse Resp B/P (MAP) Pulse Ox O2 Delivery O2 Flow Rate FiO2 11/12/17 09:21 97.8 86 20 118/71 (87) 99 Nasal Cannula 4.0 Neuro: Other (Tremulous.) Cardiovascular: Regular Rate and Rhythm, No JVD Respiratory: Other (Bilateral breath sounds present. No fluid observed on ultrasond.) GI: Abd Soft and Non-Tender Extremities: No Edema Integumentary: No Cyanosis Medical Decision Making Data Points Result Diagram: 11/12/1715 11/12/17514 EKG / Imaging Imaging Chest x-ray reviewed. Assessment and Plan Problems: (1) Abnormal chest x-ray Assessment & Plan: He has had abnormal findings on his chest x-ray since his initial admission. He doesn't have a significant cough or shortness of breath and his oxygen requirement is only slightly increased. He did have a fever a few days ago, but has been afebrile since and his WBC has mostly been normal with a few sporadic spikes. I suspect these findings are secondary to atelectasis rather than pneumonia. We have deferred restarting antibiotics unless he should develop more consistent symptoms and signs. We would recommend that he be recultured should he have another fever spike. Venous Thromboembolism Antithrombotics Is Pt On Any Antithrombotics?: Yes Exam Sepsis Risk: Sepsis Risk ZACH ROCK DO Nov 12, 2017 09:43
[2017-11-12 12:24] VITALS: BP 119/77
[2017-11-12 16:18] VITALS: BP 145/88
[2017-11-12] MEDS: FAT EMULSION 20% 250 ML BAG 250 ML IVPB SCH (18:30)
[2017-11-12 18:53] VITALS: BP 122/68
[2017-11-12 22:42] VITALS: BP 127/76
[2017-11-13] MEDS: ACETAMINOPHEN(*)1000 MG/100 ML 100 ML IVPB PRN ×4 (01:08→20:04)
[2017-11-13] MEDS: KETOROLAC 15 MG/ML VIAL IVP PRN ×3 (04:31→18:24)
[2017-11-13 04:36] VITALS: BP 125/70
[2017-11-13 05:53] LABS: PLATELET COUNT, AUTOMATED 418 K/uL (150-450)
[2017-11-13] MEDS: [UNRECOGNIZED DRUG - OTHER] IV SCH (07:23)
[2017-11-13 08:00] VITALS: BP 122/83
[2017-11-13] MEDS: DIVALPROEX SOD ER 500 MG TABSR PO SCH ×2 (09:18→20:05)
[2017-11-13] MEDS: PANTOPRAZOLE SOD 40 MG IV VIAL IVP SCH (09:18)
[2017-11-13] MEDS: ENOXAPARIN 40 MG/0.4ML SYR SC SCH (09:19)
--- NOTE | 2017-11-13 10:23 | General Surgery Progress Note ---
Subjective Progress Notes Subjective No complaints today. No pain currently. Physical Exam Vital Signs Date Time Temp Pulse Resp B/P (MAP) Pulse Ox O2 Delivery O2 Flow Rate FiO2 11/13/17 08:15 91 Nasal Cannula 4.0 11/13/17 08:00 98.3 100 24 122/83 (96) Intake and Output 11/14/17 07:00 Intake Total 4500 ml Output Total 150 ml Balance 4350 ml IV Total 4500 ml Output Urine Total 100 ml Stool Total 50 ml # Voids 3 General Appearance: Alert, Awake, No Acute Distress, Afebrile GI: Soft and Non-Tender (stoma is pink with a small amount of gas and stool in the bag.) Extremities: Warm, Perfused Result Diagram: 11/13/17 0511/13/17 05 Assessment and Plan Problems: (1) Small bowel obstruction due to postoperative adhesions Status: Acute Assessment & Plan: 10/04/17: Admit, nothing by mouth, IV fluids, bowel rest, conservative management start with. We'll follow his x-rays and NG tube output as well as stoma output. We will hold off on any sort of surgery until he is about 6 weeks out from his initial resection surgery. Hopefully he will respond to conservative management. His last meal was yesterday and his mother reports that he has been eating reasonably well. If he is unable to eat and about 5 or 6 days then we will need to consider a PICC line and starting TPN. I have explained this plan to the patient's mother and she seems to understand and seems to be agreeable with this plan. 10/05/17: Continued small bowel obstruction clinically and radiographically based on his KUB this morning. Will continue conservative management with NG tube decompression, bowel rest, and IV fluids. Continue IV antibiotics for pneumonia. If he fails to get better in the next several days may consider diagnostic laparoscopy with drainage of the pelvic fluid collection and inspection of his small bowel. We'll let his small bowel decompress further before contemplating this. 10/06/17: Will give po gastrograffin and will get CT this afternoon. KUB a little better but not much function from stoma. May need to consider exploratory laparoscopy tomorrow if not getting better. Stoma with white patches and area of necrosis on inferior portion only. Possibly the stoma appliance was cut too tight and pressing on the stoma, will need to follow this. Will add antifungal coverage in case white patches represent fungal infection of stoma although I don't recall every having seen this. Pt still with intermittent low grade fevers on broad spectrum antibiotic coverage so antifungal coverage will broaden that coverage as well. O/W, CCM. 10/07/17: Not much change. No stoma output. KUB has not yet been done this morning. Labs OK. Still with low grade fevers. WBC normal, neutrophil count coming down. CT abd/pelvis yesterday with decreased small bowel distension but still with evidence of SBO, fluid collection in unchanged, no free fluid or air. 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 Will await KUB. Getting to the point where we will need to consider PICC line and starting TPN. May discuss laparoscopic exploration later today; will discuss with patient's mother. 10/08/17: 4 weeks s/p robotic LAR, POD#1 s/p ex-laparoscopy with RILEY and drainage of presacral fluid. Doing well. WBC normal. Will follow fevers/ vitals, etc. Place PICC today to start TPN. Await return of bowel function. 10/09/17: POD2 ex laparoscopy. Awaiting return of bowel function. +BS and minimal NGT output so may be soon. Plan to start TPN on Wednesday. Patient needs to ambulate. Continue abx for pneumonia. Will try to remove perez catheter tomorrow. 10/10/17: POD3 ex laparoscopy. Still awaiting return of bowel function. Clamp NGT till noon and remove if low residuals and in good position on KUB. continue abx, continue perez. dropped MIVF to 75cc/hr. Patient is not participating with therapy. Good bowel sounds so started bowel reg today, senna s/miralax. 10/11/17: POD4 ex laparoscopy. Awaiting bowel function. NGT removed yesterday. Plan PICC/TPN today. Will need swallow eval before taking orals, could not tolerate bowel reg yesterday. May attempt to remove perez today. Ordered labs. 10/12/17: POD#5. Stable. Started TPN yesterday. KUB with gas throughout colon , I suspect we'll start seeing gas in stoma bag in next day or two. Still some dilated small bowel but colon looks better on KUB. Perez out, patient seems to be urinating without problems. CCM until bowel function returns. 10/13/17: POD#6. Doing well but still no evidence of bowel function. Continue bowel rest and TPN. Await return of bowel function. COntinue lovenox and PPI. [facility]. 10/14/17: POD#7. Doing well. DAQUAN removed yesterday. KUB continues to improve with gas to distal colon but still no activity from stoma yet. Continue bowel rest and TPN while we await return of bowel function. Continue lovenox and PPI. 10/15/17: POD#8. Doing well but now with mild fevers and intermittent tachycardia. He has no pain and his abdominal exam is benign. Will get CXR and check UA. He's not on abx other than diflucan at this point. Continue bowel rest and TPN until bowel function returns. Continue lovenox, PPI. Hopeful for return of bowel function soon. 10/16/17: POD#9. Appears to be at his baseline. Ambulated with PT yesterday> 100 feet. Urinary incomplete emptying- started on Flomax 10/15. Stoma was irrigated with Fleets Enema by Dr Claudio 10/15 with nothing more out than enema fluid. He has no pain and his abdominal exam is benign. 10/15/17 with T max 100.4- CXR was clear and UA was clear--both improved today. Off abx but remains on Diflucan for ronda appearance of the stoma noted earlier in hospitalization. Will do a trial of Erythromycin for potential bowel dysmotility (secondary to bipolar meds?) Continue bowel rest and TPN until bowel function returns. Continue Lovenox, PPI. 10/17/17: POD#10. Appears to be at his baseline. Ambulated with PT yesterday> 100 feet x 2; stronger. Urinary incomplete emptying- started on Flomax 10/15 and bladder scan was minimal for retained fluid. Started on po erythromycin for dysmotility. Stoma with large gas and small liquid out. Started on clear liquids today. He has no pain and his abdominal exam is benign. Off abx and diflucan now while undergoing trial of Erythromycin. Continue TPN until full bowel function/appetite returns. Continue Lovenox, PPI. 10/17/17 (Addendum @ 1220): Intermittent tachycardia. Peristomal hernia noted upon standing by nursing staff. This has been noted previously. No gas output or liquid output since 0600 this AM. Abdomen remains benign to my exam. Discussed care plan with Dr Claudio and will try another enema today. Will continue erythromycin as a potential pro motility agent. 10/18/17: POD#11. Worsened from GI standpoint. Now with increased abdominal distension with N/V this morning. I stopped erythromycin and backed off on his diet. He had a fever this morning to 101F. Will obtain saucedo-cultures including cultures from his PICC line. Will get CXR, empirically start primaxin. May need to repeat abdominal CT. Will see how he does today and what cultures show , etc reveal. 10/19/17: POD#12. Doing better after Perez, NG tube placed and abx restarted. KUB c/w worsened ileus vs SBO. Fevers to over 101F yesterday, no fevers overnight, HR down this morning. Will repeat CT abd/pelvis today. Continue bowel rest, NG tube, TPN. No growth from cultures yet. 10/20/17: POD#13. Still without bowel function. CT c/w SBO with loop in pelvis and continued small bowel thickening in pelvis. Presacral fluid collection is small. Parastomal hernia but no obstruction. Pt's been afebrile now back on Primaxin. Continue bowel rest, NG tube decompression, TPN. No growth in cultures. Perez out last evening. Will see how he's able to void bladder. Will get SBFT with water-soluble contrast today. 10/21/17: POD#14. Possibly doing better? Having some stool output in bag. NG not putting out too much. Will start NG clamp trials. SBFT yesterday revealed no obstruction but c/w adynamic ileus. Now starting to see gastrograffin in stoma bag. Will try erythromycin as promotility agent. 10/22/17: POD#15. Now with stoma output after gastrograffin SBFT but still with dilated loops of small bowel on KUB. Continue NG clamp trials today and follow KUB. Started erythromycin yesterday, will see how effective this is. Continue bowel rest, TPN, etc until GI function clearly returning to normal. 10/23/17: POD#16. Doing well but KUB still with unchanging dilated loops of small bowel. NG not putting much out and pt tolerating clamp trials so will d/ c NG but will continue bowel rest and TPN. Continue erythromycin. 10/24/17: POD#17. Doing well. NG removed yesterday. Pt doing well. Still with ileus as no gas in bag. Will recheck KUB tomorrow morning. Continue bowel rest. May need to discuss Kg with psychiatry to discuss his medication' s role in prolonged ileus. Continue TPN. 10/25/17: POD#18. Doing well. Now having some gas from stoma. KUB looks a little better this morning with decreased dilated loops of small bowel. Hospital is out of Erythromycin IV and it is on backorder. Will change to PO erythromycin for promotility effects. Will o/w continue bowel rest until more signs of bowel activity since the last time she showed signs of gas and stool from his stoma when he was advanced to clears he became severely distended and we needed to replace his NG tube and resume rx for ileus vs SBO. Continue TPN until tolerating regular diet. 10/26/17: POD#19. Doing well. Increasing gas in stoma bag. Still with dilated loops of small bowel on KUB. Will hold of on diet for now until KUB markedly better and stoma bag consistently with a lot of gas in it (it is intermittent currently) given his previous intolerance to clear diet a couple of weeks ago when he acutely redeveloped his ileus. Continue bowel rest and TPN, continue PO erythromycin for promotility. 10/27/17: POD#20. Doing well. Bowel function improving. Will get KUB tomorrow morning and if small bowel dilation resolved then will slowly advance diet. Continue erythromycin, bowel rest, TPN today. 10/28/17: POD#21. Doing well. No gas in bag this morning. KUB with improving but still dilated loops of small bowel. Will see how his stoma is functioning today. Will change stoma bag to a new one to get a sense of stool output today. Continue bowel rest, TPN, erythromycin today. If he's putting gas/ stool out as today progresses, may try clear diet later today. 10/29/17: POD#22. No stoma activity once again. No gas or stool in bag for last 36-48hrs. Will check KUB this morning. O/W, continue bowel rest, TPN, erythromycin. 10/30/17: POD#23. Still no activity from the stoma. Patient is not in distress and does not have a suspicious abdominal exam. Continue to monitor, continue TPN and NPO. Ambulate. 10/31/17: POD#24: No evidence of nausea, distension or pain in his abdomen. Some slight amount more stool but not a significant amount. Continue TPN and watchful waiting. Patient experienced a non injury fall yesterday with no obvious sequelae. 11/01/17: POD#25. Doing well. Exam benign. Will recheck KUB this morning but still not much stoma activity. Continue TPN. If KUB looks good then may start slowly advancing diet and add bowel regimen such as miralax. 11/02/17: POD#26. Doing well, tolerating small amounts of liquid PO intake and Miralax. Abdominal exam is benign. Continue TPN. Will recheck labs and KUB tomorrow. 11/03/17: POD#27. Doing well. Tolerating small amounts of liquid PO and Miralax. KUB with mildly increased small bowel dilation but clinically he seems to be doing well. Will recheck KUB tomorrow and if it's not getting progressively worse and Kg isn't clinically worsening then will consider SLOWLY advancing his diet. Continue TPN in the mean time. Will convert him to depakote PO this morning. 11/04/17: POD#28. Doing well. Showing signs of improving bowel function and KUB with decreased SB dilation. Doing well on Miralax and colace. Will advance to full clear liquid diet without volume restrictions except will need to restrict his water intake due to his h/o psychogenic polydipsia. If he tolerates this today then will try full liquid diet tomorrow. Will continue TPN until tolerating regular diet. 11/05/17: POD#29. Doing well. Bowel function seems to be improving. Will start full liquid diet today. Continue fluid restriction. Continue Miralax and colace. Continue TPN until tolerating regular diet. 11/06/17: POD#30. Doing well. Had about 50cc out from colostomy. Made NPO yesterday, continue TPN. 11/07/17: POD#31: No changes. will check KUB to assess distention of bowels. If improvement may start clear liquid diet. 11/08/17: POD#32. No improvement. Will ask psychiatry to evaluate and consider medication adjustment in psych meds to improve bowel function. 11/09/17: POD#33. No improvement, continued ileus. Spoke with Dr. Pedraza with psychiatry yesterday and he recommended coming down on olanzapine to 10mg for 2 days then 5mg for 2 days then stop. Will replace NG tube if pt continues with emesis. Will stop PO meds. Continue TPN. 11/10/17: POD#34. No signs of improved bowel function this morning. Will continue to come down on olanzapine and follow bowel function. Continue bowel rest and TPN. 11/11/17: POD#35. KUB a little better but clinically not improving yet. Continue to come down on olanzapine. Will get 2nd day of 5mg tonight and then will stop it and monitor bowel function. Continue bowel rest and TPN. 11/12/17: POD#36. KUB with continued improvement. He's developed a rattle in his chest and a productive cough and CXR c/w PNA. Will ask Hospitalists to consult to direct abx coverage. Will stop olanzapine today and monitor bowel function. Continue bowel rest and TPN until bowel function clearly returns. 11/13/17: Little bit more activity from his stoma today. His abdomen is nice and soft without any tenderness. He has been off the Zyprexa for 24 hours. We' ll continue bowel rest and TPN. We'll get a KUB tomorrow and if it is looking good, essentially normal, then we'll consider slowly restarting clears but we' ll start with a bowel regimen 1st. Hospitalists have evaluated the patient and do not think that he has a pneumonia. He certainly clinically looks better from a respiratory standpoint today. He is not having a productive cough, his white blood cell count is normal, and he is not having any fevers, and he has not been having increased oxygen requirements. (2) Pneumonia Status: Resolved Assessment & Plan: Hospitalist consultation to start appropriate empiric abx coverage for HAP. (3) Urinary retention with incomplete bladder emptying Status: Chronic Assessment & Plan: Started flomax, will follow response. (4) Bipolar disorder, unspecified Status: Chronic Assessment & Plan: On Home medications (5) ANEMIA IN OTHER CHRONIC DISEASES CLASSIFIED ELSEWHERE Status: Chronic Assessment & Plan: Anemia likely secondary to chronic disease; Monitor (6) Hyponatremia Status: Chronic Assessment & Plan: 10/16/17: Appears to be euvolemic; Can adjust IV Fluids; Monitor 10/17/17: Sodium 132; on fluid restriction. IVF changed to NS from 2NS. Monitor (7) Hypoalbuminemia due to protein-calorie malnutrition Status: Chronic Assessment & Plan: Albumin 2.0; On TPN; Remains NPO due to ileus or bowel dysmotility (8) Hypoxia Status: Resolved Assessment & Plan: Remains on 2 liters Nasal Canula; Encourage ambulation/ assisted; Attempt O2 weaning (9) Peristomal hernia Status: Chronic Assessment & Plan: Present on admission exam and CT scan. Does not appear to be the source of his SBO. Easily reducible. Monitor during this acute process but may need repair remotely. Condition Stable Time Spent: < 30 min Exam Sepsis Risk: Sepsis Risk Problem Qualifiers (1) Pneumonia: Pneumonia type: due to unspecified organism Laterality: unspecified laterality Lung location: unspecified part of lung Qualified Codes: J18.9 - Pneumonia, unspecified organism ZACH CLAUDIO MD Nov 13, 2017 10:23
[2017-11-13 10:45] VITALS: BP 138/67
--- NOTE | 2017-11-13 11:05 | Hospitalist Progress Note ---
Subjective Progress Notes Subjective He has been refusing IS. No fever. Physical Exam Vital Signs Date Time Temp Pulse Resp B/P (MAP) Pulse Ox O2 Delivery O2 Flow Rate FiO2 11/13/17 10:45 98.4 88 22 138/67 (90) 90 Nasal Cannula 4.0 Intake and Output 11/14/17 07:00 Intake Total 4500 ml Output Total 150 ml Balance 4350 ml IV Total 4500 ml Output Urine Total 100 ml Stool Total 50 ml # Voids 3 General Appearance: Alert, Awake Cardiovascular: Regular Rate and Rhythm (distant tones) Respiratory: Other (decreased effort, but fairly clear) Result Diagram: 11/13/1753711/13/17537 Assessment and Plan Problems: (1) Abnormal chest x-ray Assessment & Plan: He has had abnormal findings on his chest x-ray since his initial admission. He did have a fever a few days ago, but has been afebrile since and his WBC has been normal with one short-lived elevation. I suspect these findings are secondary to atelectasis rather than pneumonia. We have deferred restarting antibiotics unless he should develop more consistent symptoms and signs. We would recommend repeat cultures should he have another fever spike. Exam Sepsis Risk: Sepsis Risk ELKE REES MD Nov 13, 2017 11:05
[2017-11-13 15:00] VITALS: BP 106/73
[2017-11-13] MEDS: FAT EMULSION 20% 250 ML BAG 250 ML IVPB SCH (18:21)
[2017-11-13 23:20] VITALS: BP 141/94
[2017-11-14] MEDS: KETOROLAC 15 MG/ML VIAL IVP PRN ×4 (00:44→20:51)
[2017-11-14] MEDS: ACETAMINOPHEN(*)1000 MG/100 ML 100 ML IVPB PRN ×3 (02:23→18:11)
[2017-11-14] MEDS: [UNRECOGNIZED DRUG - OTHER] IV SCH (04:05)
[2017-11-14 06:50] LABS: PLATELET COUNT, AUTOMATED 462 K/uL (150-450)
[2017-11-14 07:44] VITALS: BP 140/116
--- NOTE | 2017-11-14 09:37 | General Surgery Progress Note ---
Subjective Progress Notes Subjective No complaints this morning. Physical Exam Vital Signs Date Time Temp Pulse Resp B/P (MAP) Pulse Ox O2 Delivery O2 Flow Rate FiO2 11/14/17 07:46 82 11/14/17 07:44 98.3 27 140/116 (124) 92 Nasal Cannula 4.0 Intake and Output 11/15/17 07:00 Output Total 100 ml Balance -100 ml Output Urine Total 100 ml # Voids 2 General Appearance: Alert, Awake, No Acute Distress, Afebrile GI: Soft and Non-Tender (Stoma is pink with some gas and small amount of stool in bag.) Extremities: Warm, Perfused Result Diagram: 11/14/17 0511/14/17 05 Assessment and Plan Problems: (1) Small bowel obstruction due to postoperative adhesions Status: Acute Assessment & Plan: 10/04/17: Admit, nothing by mouth, IV fluids, bowel rest, conservative management start with. We'll follow his x-rays and NG tube output as well as stoma output. We will hold off on any sort of surgery until he is about 6 weeks out from his initial resection surgery. Hopefully he will respond to conservative management. His last meal was yesterday and his mother reports that he has been eating reasonably well. If he is unable to eat and about 5 or 6 days then we will need to consider a PICC line and starting TPN. I have explained this plan to the patient's mother and she seems to understand and seems to be agreeable with this plan. 10/05/17: Continued small bowel obstruction clinically and radiographically based on his KUB this morning. Will continue conservative management with NG tube decompression, bowel rest, and IV fluids. Continue IV antibiotics for pneumonia. If he fails to get better in the next several days may consider diagnostic laparoscopy with drainage of the pelvic fluid collection and inspection of his small bowel. We'll let his small bowel decompress further before contemplating this. 10/06/17: Will give po gastrograffin and will get CT this afternoon. KUB a little better but not much function from stoma. May need to consider exploratory laparoscopy tomorrow if not getting better. Stoma with white patches and area of necrosis on inferior portion only. Possibly the stoma appliance was cut too tight and pressing on the stoma, will need to follow this. Will add antifungal coverage in case white patches represent fungal infection of stoma although I don't recall every having seen this. Pt still with intermittent low grade fevers on broad spectrum antibiotic coverage so antifungal coverage will broaden that coverage as well. O/W, CCM. 10/07/17: Not much change. No stoma output. KUB has not yet been done this morning. Labs OK. Still with low grade fevers. WBC normal, neutrophil count coming down. CT abd/pelvis yesterday with decreased small bowel distension but still with evidence of SBO, fluid collection in unchanged, no free fluid or air. 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 Will await KUB. Getting to the point where we will need to consider PICC line and starting TPN. May discuss laparoscopic exploration later today; will discuss with patient's mother. 10/08/17: 4 weeks s/p robotic LAR, POD#1 s/p ex-laparoscopy with RILEY and drainage of presacral fluid. Doing well. WBC normal. Will follow fevers/ vitals, etc. Place PICC today to start TPN. Await return of bowel function. 10/09/17: POD2 ex laparoscopy. Awaiting return of bowel function. +BS and minimal NGT output so may be soon. Plan to start TPN on Wednesday. Patient needs to ambulate. Continue abx for pneumonia. Will try to remove perez catheter tomorrow. 10/10/17: POD3 ex laparoscopy. Still awaiting return of bowel function. Clamp NGT till noon and remove if low residuals and in good position on KUB. continue abx, continue perez. dropped MIVF to 75cc/hr. Patient is not participating with therapy. Good bowel sounds so started bowel reg today, senna s/miralax. 10/11/17: POD4 ex laparoscopy. Awaiting bowel function. NGT removed yesterday. Plan PICC/TPN today. Will need swallow eval before taking orals, could not tolerate bowel reg yesterday. May attempt to remove perez today. Ordered labs. 10/12/17: POD#5. Stable. Started TPN yesterday. KUB with gas throughout colon , I suspect we'll start seeing gas in stoma bag in next day or two. Still some dilated small bowel but colon looks better on KUB. Perez out, patient seems to be urinating without problems. CCM until bowel function returns. 10/13/17: POD#6. Doing well but still no evidence of bowel function. Continue bowel rest and TPN. Await return of bowel function. COntinue lovenox and PPI. CCM. 10/14/17: POD#7. Doing well. DAQUAN removed yesterday. KUB continues to improve with gas to distal colon but still no activity from stoma yet. Continue bowel rest and TPN while we await return of bowel function. Continue lovenox and PPI. 10/15/17: POD#8. Doing well but now with mild fevers and intermittent tachycardia. He has no pain and his abdominal exam is benign. Will get CXR and check UA. He's not on abx other than diflucan at this point. Continue bowel rest and TPN until bowel function returns. Continue lovenox, PPI. Hopeful for return of bowel function soon. 10/16/17: POD#9. Appears to be at his baseline. Ambulated with PT yesterday> 100 feet. Urinary incomplete emptying- started on Flomax 10/15. Stoma was irrigated with Fleets Enema by Dr Claudio 10/15 with nothing more out than enema fluid. He has no pain and his abdominal exam is benign. 10/15/17 with T max 100.4- CXR was clear and UA was clear--both improved today. Off abx but remains on Diflucan for ronda appearance of the stoma noted earlier in hospitalization. Will do a trial of Erythromycin for potential bowel dysmotility (secondary to bipolar meds?) Continue bowel rest and TPN until bowel function returns. Continue Lovenox, PPI. 10/17/17: POD#10. Appears to be at his baseline. Ambulated with PT yesterday> 100 feet x 2; stronger. Urinary incomplete emptying- started on Flomax 10/15 and bladder scan was minimal for retained fluid. Started on po erythromycin for dysmotility. Stoma with large gas and small liquid out. Started on clear liquids today. He has no pain and his abdominal exam is benign. Off abx and diflucan now while undergoing trial of Erythromycin. Continue TPN until full bowel function/appetite returns. Continue Lovenox, PPI. 10/17/17 (Addendum @ 1220): Intermittent tachycardia. Peristomal hernia noted upon standing by nursing staff. This has been noted previously. No gas output or liquid output since 0600 this AM. Abdomen remains benign to my exam. Discussed care plan with Dr Claudio and will try another enema today. Will continue erythromycin as a potential pro motility agent. 10/18/17: POD#11. Worsened from GI standpoint. Now with increased abdominal distension with N/V this morning. I stopped erythromycin and backed off on his diet. He had a fever this morning to 101F. Will obtain saucedo-cultures including cultures from his PICC line. Will get CXR, empirically start primaxin. May need to repeat abdominal CT. Will see how he does today and what cultures show , etc reveal. 10/19/17: POD#12. Doing better after Perez, NG tube placed and abx restarted. KUB c/w worsened ileus vs SBO. Fevers to over 101F yesterday, no fevers overnight, HR down this morning. Will repeat CT abd/pelvis today. Continue bowel rest, NG tube, TPN. No growth from cultures yet. 10/20/17: POD#13. Still without bowel function. CT c/w SBO with loop in pelvis and continued small bowel thickening in pelvis. Presacral fluid collection is small. Parastomal hernia but no obstruction. Pt's been afebrile now back on Primaxin. Continue bowel rest, NG tube decompression, TPN. No growth in cultures. Perez out last evening. Will see how he's able to void bladder. Will get SBFT with water-soluble contrast today. 10/21/17: POD#14. Possibly doing better? Having some stool output in bag. NG not putting out too much. Will start NG clamp trials. SBFT yesterday revealed no obstruction but c/w adynamic ileus. Now starting to see gastrograffin in stoma bag. Will try erythromycin as promotility agent. 10/22/17: POD#15. Now with stoma output after gastrograffin SBFT but still with dilated loops of small bowel on KUB. Continue NG clamp trials today and follow KUB. Started erythromycin yesterday, will see how effective this is. Continue bowel rest, TPN, etc until GI function clearly returning to normal. 10/23/17: POD#16. Doing well but KUB still with unchanging dilated loops of small bowel. NG not putting much out and pt tolerating clamp trials so will d/ c NG but will continue bowel rest and TPN. Continue erythromycin. 10/24/17: POD#17. Doing well. NG removed yesterday. Pt doing well. Still with ileus as no gas in bag. Will recheck KUB tomorrow morning. Continue bowel rest. May need to discuss Kg with psychiatry to discuss his medication' s role in prolonged ileus. Continue TPN. 10/25/17: POD#18. Doing well. Now having some gas from stoma. KUB looks a little better this morning with decreased dilated loops of small bowel. Hospital is out of Erythromycin IV and it is on backorder. Will change to PO erythromycin for promotility effects. Will o/w continue bowel rest until more signs of bowel activity since the last time she showed signs of gas and stool from his stoma when he was advanced to clears he became severely distended and we needed to replace his NG tube and resume rx for ileus vs SBO. Continue TPN until tolerating regular diet. 10/26/17: POD#19. Doing well. Increasing gas in stoma bag. Still with dilated loops of small bowel on KUB. Will hold of on diet for now until KUB markedly better and stoma bag consistently with a lot of gas in it (it is intermittent currently) given his previous intolerance to clear diet a couple of weeks ago when he acutely redeveloped his ileus. Continue bowel rest and TPN, continue PO erythromycin for promotility. 10/27/17: POD#20. Doing well. Bowel function improving. Will get KUB tomorrow morning and if small bowel dilation resolved then will slowly advance diet. Continue erythromycin, bowel rest, TPN today. 10/28/17: POD#21. Doing well. No gas in bag this morning. KUB with improving but still dilated loops of small bowel. Will see how his stoma is functioning today. Will change stoma bag to a new one to get a sense of stool output today. Continue bowel rest, TPN, erythromycin today. If he's putting gas/ stool out as today progresses, may try clear diet later today. 10/29/17: POD#22. No stoma activity once again. No gas or stool in bag for last 36-48hrs. Will check KUB this morning. O/W, continue bowel rest, TPN, erythromycin. 10/30/17: POD#23. Still no activity from the stoma. Patient is not in distress and does not have a suspicious abdominal exam. Continue to monitor, continue TPN and NPO. Ambulate. 10/31/17: POD#24: No evidence of nausea, distension or pain in his abdomen. Some slight amount more stool but not a significant amount. Continue TPN and watchful waiting. Patient experienced a non injury fall yesterday with no obvious sequelae. 11/01/17: POD#25. Doing well. Exam benign. Will recheck KUB this morning but still not much stoma activity. Continue TPN. If KUB looks good then may start slowly advancing diet and add bowel regimen such as miralax. 11/02/17: POD#26. Doing well, tolerating small amounts of liquid PO intake and Miralax. Abdominal exam is benign. Continue TPN. Will recheck labs and KUB tomorrow. 11/03/17: POD#27. Doing well. Tolerating small amounts of liquid PO and Miralax. KUB with mildly increased small bowel dilation but clinically he seems to be doing well. Will recheck KUB tomorrow and if it's not getting progressively worse and Kg isn't clinically worsening then will consider SLOWLY advancing his diet. Continue TPN in the mean time. Will convert him to depakote PO this morning. 11/04/17: POD#28. Doing well. Showing signs of improving bowel function and KUB with decreased SB dilation. Doing well on Miralax and colace. Will advance to full clear liquid diet without volume restrictions except will need to restrict his water intake due to his h/o psychogenic polydipsia. If he tolerates this today then will try full liquid diet tomorrow. Will continue TPN until tolerating regular diet. 11/05/17: POD#29. Doing well. Bowel function seems to be improving. Will start full liquid diet today. Continue fluid restriction. Continue Miralax and colace. Continue TPN until tolerating regular diet. 11/06/17: POD#30. Doing well. Had about 50cc out from colostomy. Made NPO yesterday, continue TPN. 11/07/17: POD#31: No changes. will check KUB to assess distention of bowels. If improvement may start clear liquid diet. 11/08/17: POD#32. No improvement. Will ask psychiatry to evaluate and consider medication adjustment in psych meds to improve bowel function. 11/09/17: POD#33. No improvement, continued ileus. Spoke with Dr. Pedraaz with psychiatry yesterday and he recommended coming down on olanzapine to 10mg for 2 days then 5mg for 2 days then stop. Will replace NG tube if pt continues with emesis. Will stop PO meds. Continue TPN. 11/10/17: POD#34. No signs of improved bowel function this morning. Will continue to come down on olanzapine and follow bowel function. Continue bowel rest and TPN. 11/11/17: POD#35. KUB a little better but clinically not improving yet. Continue to come down on olanzapine. Will get 2nd day of 5mg tonight and then will stop it and monitor bowel function. Continue bowel rest and TPN. 11/12/17: POD#36. KUB with continued improvement. He's developed a rattle in his chest and a productive cough and CXR c/w PNA. Will ask Hospitalists to consult to direct abx coverage. Will stop olanzapine today and monitor bowel function. Continue bowel rest and TPN until bowel function clearly returns. 11/13/17: Little bit more activity from his stoma today. His abdomen is nice and soft without any tenderness. He has been off the Zyprexa for 24 hours. We' ll continue bowel rest and TPN. We'll get a KUB tomorrow and if it is looking good, essentially normal, then we'll consider slowly restarting clears but we' ll start with a bowel regimen 1st. Hospitalists have evaluated the patient and do not think that he has a pneumonia. He certainly clinically looks better from a respiratory standpoint today. He is not having a productive cough, his white blood cell count is normal, and he is not having any fevers, and he has not been having increased oxygen requirements. 11/14/17: KUB improving. Abdomen is soft and nontender. Will start colace and miralax today and if he does well with this then tomorrow will try clear diet again. O/W CCM. (2) Pneumonia Status: Resolved Assessment & Plan: Hospitalist consultation to start appropriate empiric abx coverage for HAP. (3) Urinary retention with incomplete bladder emptying Status: Chronic Assessment & Plan: Started flomax, will follow response. (4) Bipolar disorder, unspecified Status: Chronic Assessment & Plan: On Home medications (5) ANEMIA IN OTHER CHRONIC DISEASES CLASSIFIED ELSEWHERE Status: Chronic Assessment & Plan: Anemia likely secondary to chronic disease; Monitor (6) Hyponatremia Status: Chronic Assessment & Plan: 10/16/17: Appears to be euvolemic; Can adjust IV Fluids; Monitor 10/17/17: Sodium 132; on fluid restriction. IVF changed to NS from 12NS. Monitor (7) Hypoalbuminemia due to protein-calorie malnutrition Status: Chronic Assessment & Plan: Albumin 2.0; On TPN; Remains NPO due to ileus or bowel dysmotility (8) Hypoxia Status: Resolved Assessment & Plan: Remains on 2 liters Nasal Canula; Encourage ambulation/ assisted; Attempt O2 weaning (9) Peristomal hernia Status: Chronic Assessment & Plan: Present on admission exam and CT scan. Does not appear to be the source of his SBO. Easily reducible. Monitor during this acute process but may need repair remotely. Condition Stable. Time Spent: < 30 min Exam Sepsis Risk: Sepsis Risk Problem Qualifiers (1) Pneumonia: Pneumonia type: due to unspecified organism Laterality: unspecified laterality Lung location: unspecified part of lung Qualified Codes: J18.9 - Pneumonia, unspecified organism ZACH CLAUDIO MD Nov 14, 2017 09:37
[2017-11-14] MEDS: DIVALPROEX SOD ER 500 MG TABSR PO SCH ×2 (09:59→20:52)
[2017-11-14] MEDS: POLYETHYLENE GLYCOL 17 GM PKT PO SCH (09:59)
[2017-11-14] MEDS: ENOXAPARIN 40 MG/0.4ML SYR SC SCH (09:59)
[2017-11-14] MEDS: DOCUSATE SODIUM 100 MG CAP PO SCH ×2 (09:59→20:51)
[2017-11-14] MEDS: PANTOPRAZOLE SOD 40 MG IV VIAL IVP SCH (10:00)
--- NOTE | 2017-11-14 12:18 | Medical Nutrition Therapy ---
Nutrition Anthropometrics Height (Inches): 67.00 Height (Calculated Centimeters: 170.656817 Weight (Pounds): 144 Weight (Calculated Kilograms): 65.516 BMI: 22.5 Sherman Nutrition Score: Probably Inadequate Sherman Nutrition Risk Score: 17 Dietary Referral Nutrition Risk Factors: Nutrition Risk Comment: Physical Findings Physical Appearance: WNR 22.3 Skin Appearance Skin Appearance: Edema Edema Location Modifier: Both Edema Location: Ankle Type of Edema: Degree of Edema: Gastrointestinal Symptoms GI Symtoms: Change in Bowel Pattern Tube Present: NG Bowel Sounds: Recent Bowel Pattern: Stool Characteristics: Brown, Soft Nutritional Support Current Enteral / Parental: TPN Rate: 100 mL/hr Clinimex 5%AA + 20% Dex. + 20% lipid / 12 hrs Current Duration: 24 Current Calories: 2112 Current Protein: 100 Current Lipids Calories: 500 Total Current Calories: 2612 Nutrition Monitoring & Eval RD Patient Assessment Time: [address] Assessment Type: RD Re-Assessment Patient Nutrition Acuity: 1-High Follow Up Date: Nov 17, 2017 Nutritional Comment: 10/05 Pt admitted for SBO and pneumonia. Pt is experiencing N/V, fever and abdominal pain. Pt is on NPO diet with meds only. Pt has a hx of colon cancer. Pt had a colostomy placed (09/10). Pt mother states the his bowel movements have in his bag have been more bulky. She states that he eats reasonably well. However, in doctor's note he had stated if pt does not eat within the next 5-6 days a PICC line and TPN would be placed. Mother agreed to this plan. Pt WBC was elevated and has reach WNR. Pt is on antibiotics for pneumonia. Pt has pelvic fluid collection and at risk for sepsis. Pt has low Na (130) and low H/H. Continue to monitor pt progress, labs and diet advancement. -MT 10/07 Pt continues on NPO diet, he is now on day three. Pt states that he wants water. Pt still has evidence of SBO and fluid collection. In the doctor's note it states pt is getting to the point where we will need to consider PICC line and starting TPN. Pt may benefit from 1800 ml TPN at 75ml/hr providing 1836 kcal ad 76g protein. This will meet 94% of the pt energy needs and 97% protein. Pt has low alb (2.3), no other concern labs at this time. Will continue to monitor pt progress and TPN order. -MT 10/08 Pt 4th day NPO. Per Dr notes, pt will start TPN today. Alb has declined to 2. Recommend final TPN rate of 75 ml/hr plus lipids to meet 109% est kcal and 97% est protein needs. BK 10/10 Low H/H, Alb 2.0, Low Ca+. TPN delayed until Wednesday (10/11), bowel sounds now present. Follow clinical progression. -DRT 10/12 Continues to have low H/H, low WBC, Na (127), alb (2.1) and elevated K+ (6.9). Pt started TPN (10/11). NG tube and perez removed. Pt did swallowing eval. No concern at this time. Will continue to monitor pt progress and diet advancement. -MT 10/15 No complaints. Pt has mild fever. Pt is still weak and experiencing tremors in both LE. DAQUAN removed yesterday (10/14). Colostomy bag continues to have gas in it, however no BM. Per doctor note continue bowel rest and TPN while we await return of bowel function. Pt urinary retention and pneumonia have been resolved. Pt Na is low (133). Pt is receiving IV Na PRN. Will continue to monitor pt progress, labs and encourage intake.-MT 10/18 Pt continues on TPN until bowel function returns to normal. Per doctor note, will do a trial of Erythromycin for potential bowel dysmotility. Did two enemas, got some liquids in colostomy bag. However doctors note states GI has gotten worse. Pt is distended with N/V. Pt had a fever yesterday (101) with elevated WAC (11.1) and blood glucose ( 128). Pt has had a 5# wt loss since 10/12 (146#) to now (141). Will continue to monitor pt progress, labs and diet advancement. -MT 10/20 Wt is down 10# since admission. Alb 2.5 is improving. Pt cont on TPN. Reassessed nutritional needs with est higher kcal and protein needs. Recommend increase TPN to 2000 ml/24 hr plus 250ml lipids 12 hrs to meet 95% est kcal and 98% est protein needs. Cont to monitor. BK 10/23 Pt cont on TPN with hypoactivbe bowel sounds. TPN was increased to 2000ml/24 hr to meet 95% est kcal and 98% est protein needs. Alb at 2.3 slowly increaseing . Wt is up 2#. Will cont to monitor. BK 10/25 Pt cont on TPN with hypoactivbe bowel sounds and maryanne from stoma. TPN is meeting 95% est kcal and 98% est protein needs. Alb at 2.4 is slowly increaseing . Wt is within usual range. Will cont to monitor. BK 10/28 Pt cont on TPN however on10/24 pharmacy changed to a 15% dextrose, 5% protein solution which provides 1420 kcal + 500 from lipid for total kcal of 2020 and 100 gm protein. This meets 80% est kcal and 116% est protein needs. Pt has lost wt from 144# on 10/24 to 133# on 10/27 with some of the wt loss probalby r/t fluids. However recommend increase TPN to 3000ml/day to provide 2630 kcal to meet 105% est kcal and 174% est protein needs to avoid futher wt loss. Alb declined to 2.3 so additional protein would be helpful. Recommend cont TPN until oral intake can meet nutr needs. BK 10/29 TPN increased to 3L/day of Clinimex 09/07. TPN is now meeting 105% est kcal needs, 174% est protein needs. Wt is back up 4#. Cont down 19% from admit wt. Alb 2.3. Cont to monitor. BK 11/01 Pt continues on TPN 3L/day Clinimex 09/07. Pt. has hypoactive bowel sounds, no gas from stoma. Wt. is fluctuating between 133-135# over past 4 days. Alb. has increased to 2.6. May advance diet with Miralax pending KUB. On 10/30 pt. was asleep, but talked with mother - will educate on high kcal/protein diet once off TPN. Will continue to monitor. RB 11/04 Diet advanced to clear liquids with TPN 3L/day Clinimex 15 to meet needs. Pt. seems to be tolerating well - ate 25% of clear tray at breakfast on 11/03. Flatus present and improving KUB function. Alb. now at 2.8, continues to trend upward. Wt. also fluctuating btw. 132-139# over the past week, now at 138#. On water restriction per note due to psychogenic polydipsia. BUN running slightly high (22) on 11/01 and 11/03 but WNL previously. Sodium levels slightly low at 134, avg. 132-136. Will continue to monitor progress, labs and diet advancement. RB 11/05 Diet advanced to med liquid/GI soft. No intake reported at this time. Nursing providing foods. Wt up slightly 10 139# but within the range he has been fluctuating. Pt cont on TPN which is meeting nutritional needs. Will cont to monitor. BK 11/07 Was informed by pharmacy that they are on the last bottle of Cinimex 15% dextrose, 5% AA. They will be able to stock and cont to keep on hand Cinimex 20% dextrose, 5% AA. Recommend change to that formula at a rate of 100ml/hr plus lipids to provide 2612 kcal, 100g protein to meet 104% est kcal and 120% est protein needs. Dr Calvillo was called and informed of the unaviabilty of the previous TPN solution and the recommended change. BK 11/08 TPN was changed to recommended rate with Clinimex 5% AA / 20% Dex at 100 mL/hr. This provides 104% est kcal and 120% est protein needs. Pt. has distended hypoactive bowel - no improvement in KUB per DrAntonina note. Blood glucose 104 today. Wt continues to trend upward; he is at 64.4kg. Will monitor wt., labs and TPN. - RB 11/14 Continued ileus with NPO status and TPN. Low H/H, Ca+ 8.2, Na+ 132. Wt 65.516. Monitor clinical progression, labs, wt, TPN, etc. -JEREMIE GONZALEZ Nov 14, 2017 12:18
[2017-11-14 16:27] VITALS: BP 115/92
[2017-11-14] MEDS: FAT EMULSION 20% 250 ML BAG 250 ML IVPB SCH (18:11)
[2017-11-14 20:03] VITALS: BP 135/73
[2017-11-15] MEDS: ACETAMINOPHEN(*)1000 MG/100 ML 100 ML IVPB PRN ×4 (00:30→23:59)
[2017-11-15] MEDS: [UNRECOGNIZED DRUG - OTHER] IV SCH ×2 (00:40→18:00)
[2017-11-15] MEDS: KETOROLAC 15 MG/ML VIAL IVP PRN ×3 (03:04→19:56)
[2017-11-15 05:25] VITALS: BP 116/76
[2017-11-15 06:05] LABS: PLATELET COUNT, AUTOMATED 514 K/uL (150-450)
--- NOTE | 2017-11-15 06:39 | RADIOLOGY IMAGING REPORT ---
[place] [facility] [place] Matthew Roth : 1960 MR: [id number] V: [id number] EXAM DATE: ORDERING PHYSICIAN: ZACH CLAUDIO TECHNOLOGIST: [place] [facility] [place]: Matthew Roth : 1960 Visit/Account:[id number] Date of Sevice: 11/15/2017 KUB SINGLE VIEW ABDOMEN HISTORY: Ileus Single KUB. Comparison is made to previous study of 11/12/2017 FINDINGS: There is an improvement in the bowel gas pattern when compared to previous study of 11/12/2017 compati ble with resolving ileus. No abdominal mass lesions. No abnormal calcific lesions. IMPRESSION: 1. Continued interval improvement in the ileus pattern. Report Dictated By: Landen Lundberg MD at 11/15/2017 6:21 AM Report E-Signed By: Landen Lundberg MD at 11/15/2017 6:35 AM WSN:[id number]
[2017-11-15 07:09] VITALS: BP 108/76
[2017-11-15] MEDS: DOCUSATE SODIUM 100 MG CAP PO SCH ×2 (08:40→20:43)
[2017-11-15] MEDS: ENOXAPARIN 40 MG/0.4ML SYR SC SCH (08:40)
[2017-11-15] MEDS: PANTOPRAZOLE SOD 40 MG IV VIAL IVP SCH (08:40)
[2017-11-15] MEDS: POLYETHYLENE GLYCOL 17 GM PKT PO SCH (08:42)
[2017-11-15] MEDS: DIVALPROEX SOD ER 500 MG TABSR PO SCH ×2 (08:42→20:43)
[2017-11-15 15:27] VITALS: BP 142/67
[2017-11-15] MEDS: FAT EMULSION 20% 250 ML BAG 250 ML IVPB SCH (17:59)
[2017-11-15 20:40] VITALS: BP 133/80
[2017-11-15 23:14] VITALS: BP 109/72
[2017-11-16] MEDS: KETOROLAC 15 MG/ML VIAL IVP PRN ×3 (02:35→18:07)
[2017-11-16 03:18] VITALS: BP 150/80
--- NOTE | 2017-11-16 06:40 | RADIOLOGY IMAGING REPORT ---
FACILITY: [facility] PATIENT NAME: Matthew Roth : 1960 MR: [id number] V: [id number] EXAM DATE: ORDERING PHYSICIAN: ZACH CLAUDIO TECHNOLOGIST: Location: [facility] [place] Patient: Matthew Roth : 1960 Visit/Account:[id number] Date of Sevice: 11/16/2017 KUB SINGLE VIEW ABDOMEN HISTORY: ileus KUB FINDINGS: Nonspecific bowel gas pattern. Study degraded due to patient motion but similar to previous examinati on. Mildly dilated loops of small bowel in the central left upper abdomen. They appear to be slightly less pronounced. IMPRESSION: 1. Unchanged appearance in the small bowel when compared to previous study accounting for technique l imitations Report Dictated By: Landen Lundberg MD at 11/16/2017 6:25 AM Report E-Signed By: Landen Lundberg MD at 11/16/2017 6:36 AM WSN:[id number]
--- NOTE | 2017-11-16 07:00 | General Surgery Progress Note ---
Subjective Progress Notes Subjective No complaints. No pain. Physical Exam Vital Signs Date Time Temp Pulse Resp B/P (MAP) Pulse Ox O2 Delivery O2 Flow Rate FiO2 11/16/17 03:18 97.7 81 24 150/80 (103) 94 Nasal Cannula 4.5 General Appearance: Alert, Awake, No Acute Distress, Afebrile GI: Soft and Non-Tender (Stoma is pink and functional) Extremities: Warm, Perfused Result Diagram: 11/15/17 0515 11/15/17 0549 Assessment and Plan Problems: (1) Small bowel obstruction due to postoperative adhesions Status: Acute Assessment & Plan: 10/04/17: Admit, nothing by mouth, IV fluids, bowel rest, conservative management start with. We'll follow his x-rays and NG tube output as well as stoma output. We will hold off on any sort of surgery until he is about 6 weeks out from his initial resection surgery. Hopefully he will respond to conservative management. His last meal was yesterday and his mother reports that he has been eating reasonably well. If he is unable to eat and about 5 or 6 days then we will need to consider a PICC line and starting TPN. I have explained this plan to the patient's mother and she seems to understand and seems to be agreeable with this plan. 10/05/17: Continued small bowel obstruction clinically and radiographically based on his KUB this morning. Will continue conservative management with NG tube decompression, bowel rest, and IV fluids. Continue IV antibiotics for pneumonia. If he fails to get better in the next several days may consider diagnostic laparoscopy with drainage of the pelvic fluid collection and inspection of his small bowel. We'll let his small bowel decompress further before contemplating this. 10/06/17: Will give po gastrograffin and will get CT this afternoon. KUB a little better but not much function from stoma. May need to consider exploratory laparoscopy tomorrow if not getting better. Stoma with white patches and area of necrosis on inferior portion only. Possibly the stoma appliance was cut too tight and pressing on the stoma, will need to follow this. Will add antifungal coverage in case white patches represent fungal infection of stoma although I don't recall every having seen this. Pt still with intermittent low grade fevers on broad spectrum antibiotic coverage so antifungal coverage will broaden that coverage as well. O/W, CCM. 10/07/17: Not much change. No stoma output. KUB has not yet been done this morning. Labs OK. Still with low grade fevers. WBC normal, neutrophil count coming down. CT abd/pelvis yesterday with decreased small bowel distension but still with evidence of SBO, fluid collection in unchanged, no free fluid or air. 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 Will await KUB. Getting to the point where we will need to consider PICC line and starting TPN. May discuss laparoscopic exploration later today; will discuss with patient's mother. 10/08/17: 4 weeks s/p robotic LAR, POD#1 s/p ex-laparoscopy with RILEY and drainage of presacral fluid. Doing well. WBC normal. Will follow fevers/ vitals, etc. Place PICC today to start TPN. Await return of bowel function. 10/09/17: POD2 ex laparoscopy. Awaiting return of bowel function. +BS and minimal NGT output so may be soon. Plan to start TPN on Wednesday. Patient needs to ambulate. Continue abx for pneumonia. Will try to remove perez catheter tomorrow. 10/10/17: POD3 ex laparoscopy. Still awaiting return of bowel function. Clamp NGT till noon and remove if low residuals and in good position on KUB. continue abx, continue perez. dropped MIVF to 75cc/hr. Patient is not participating with therapy. Good bowel sounds so started bowel reg today, senna s/miralax. 10/11/17: POD4 ex laparoscopy. Awaiting bowel function. NGT removed yesterday. Plan PICC/TPN today. Will need swallow eval before taking orals, could not tolerate bowel reg yesterday. May attempt to remove perez today. Ordered labs. 10/12/17: POD#5. Stable. Started TPN yesterday. KUB with gas throughout colon , I suspect we'll start seeing gas in stoma bag in next day or two. Still some dilated small bowel but colon looks better on KUB. Perez out, patient seems to be urinating without problems. CCM until bowel function returns. 10/13/17: POD#6. Doing well but still no evidence of bowel function. Continue bowel rest and TPN. Await return of bowel function. COntinue lovenox and PPI. CCM. 10/14/17: POD#7. Doing well. DAQUAN removed yesterday. KUB continues to improve with gas to distal colon but still no activity from stoma yet. Continue bowel rest and TPN while we await return of bowel function. Continue lovenox and PPI. 10/15/17: POD#8. Doing well but now with mild fevers and intermittent tachycardia. He has no pain and his abdominal exam is benign. Will get CXR and check UA. He's not on abx other than diflucan at this point. Continue bowel rest and TPN until bowel function returns. Continue lovenox, PPI. Hopeful for return of bowel function soon. 10/16/17: POD#9. Appears to be at his baseline. Ambulated with PT yesterday> 100 feet. Urinary incomplete emptying- started on Flomax 10/15. Stoma was irrigated with Fleets Enema by Dr Claudio 10/15 with nothing more out than enema fluid. He has no pain and his abdominal exam is benign. 10/15/17 with T max 100.4- CXR was clear and UA was clear--both improved today. Off abx but remains on Diflucan for ronda appearance of the stoma noted earlier in hospitalization. Will do a trial of Erythromycin for potential bowel dysmotility (secondary to bipolar meds?) Continue bowel rest and TPN until bowel function returns. Continue Lovenox, PPI. 10/17/17: POD#10. Appears to be at his baseline. Ambulated with PT yesterday> 100 feet x 2; stronger. Urinary incomplete emptying- started on Flomax 10/15 and bladder scan was minimal for retained fluid. Started on po erythromycin for dysmotility. Stoma with large gas and small liquid out. Started on clear liquids today. He has no pain and his abdominal exam is benign. Off abx and diflucan now while undergoing trial of Erythromycin. Continue TPN until full bowel function/appetite returns. Continue Lovenox, PPI. 10/17/17 (Addendum @ 1220): Intermittent tachycardia. Peristomal hernia noted upon standing by nursing staff. This has been noted previously. No gas output or liquid output since 0600 this AM. Abdomen remains benign to my exam. Discussed care plan with Dr Claudio and will try another enema today. Will continue erythromycin as a potential pro motility agent. 10/18/17: POD#11. Worsened from GI standpoint. Now with increased abdominal distension with N/V this morning. I stopped erythromycin and backed off on his diet. He had a fever this morning to 101F. Will obtain saucedo-cultures including cultures from his PICC line. Will get CXR, empirically start primaxin. May need to repeat abdominal CT. Will see how he does today and what cultures show , etc reveal. 10/19/17: POD#12. Doing better after Perez, NG tube placed and abx restarted. KUB c/w worsened ileus vs SBO. Fevers to over 101F yesterday, no fevers overnight, HR down this morning. Will repeat CT abd/pelvis today. Continue bowel rest, NG tube, TPN. No growth from cultures yet. 10/20/17: POD#13. Still without bowel function. CT c/w SBO with loop in pelvis and continued small bowel thickening in pelvis. Presacral fluid collection is small. Parastomal hernia but no obstruction. Pt's been afebrile now back on Primaxin. Continue bowel rest, NG tube decompression, TPN. No growth in cultures. Perez out last evening. Will see how he's able to void bladder. Will get SBFT with water-soluble contrast today. 10/21/17: POD#14. Possibly doing better? Having some stool output in bag. NG not putting out too much. Will start NG clamp trials. SBFT yesterday revealed no obstruction but c/w adynamic ileus. Now starting to see gastrograffin in stoma bag. Will try erythromycin as promotility agent. 10/22/17: POD#15. Now with stoma output after gastrograffin SBFT but still with dilated loops of small bowel on KUB. Continue NG clamp trials today and follow KUB. Started erythromycin yesterday, will see how effective this is. Continue bowel rest, TPN, etc until GI function clearly returning to normal. 10/23/17: POD#16. Doing well but KUB still with unchanging dilated loops of small bowel. NG not putting much out and pt tolerating clamp trials so will d/ c NG but will continue bowel rest and TPN. Continue erythromycin. 10/24/17: POD#17. Doing well. NG removed yesterday. Pt doing well. Still with ileus as no gas in bag. Will recheck KUB tomorrow morning. Continue bowel rest. May need to discuss Kg with psychiatry to discuss his medication' s role in prolonged ileus. Continue TPN. 10/25/17: POD#18. Doing well. Now having some gas from stoma. KUB looks a little better this morning with decreased dilated loops of small bowel. Hospital is out of Erythromycin IV and it is on backorder. Will change to PO erythromycin for promotility effects. Will o/w continue bowel rest until more signs of bowel activity since the last time she showed signs of gas and stool from his stoma when he was advanced to clears he became severely distended and we needed to replace his NG tube and resume rx for ileus vs SBO. Continue TPN until tolerating regular diet. 10/26/17: POD#19. Doing well. Increasing gas in stoma bag. Still with dilated loops of small bowel on KUB. Will hold of on diet for now until KUB markedly better and stoma bag consistently with a lot of gas in it (it is intermittent currently) given his previous intolerance to clear diet a couple of weeks ago when he acutely redeveloped his ileus. Continue bowel rest and TPN, continue PO erythromycin for promotility. 10/27/17: POD#20. Doing well. Bowel function improving. Will get KUB tomorrow morning and if small bowel dilation resolved then will slowly advance diet. Continue erythromycin, bowel rest, TPN today. 10/28/17: POD#21. Doing well. No gas in bag this morning. KUB with improving but still dilated loops of small bowel. Will see how his stoma is functioning today. Will change stoma bag to a new one to get a sense of stool output today. Continue bowel rest, TPN, erythromycin today. If he's putting gas/ stool out as today progresses, may try clear diet later today. 10/29/17: POD#22. No stoma activity once again. No gas or stool in bag for last 36-48hrs. Will check KUB this morning. O/W, continue bowel rest, TPN, erythromycin. 10/30/17: POD#23. Still no activity from the stoma. Patient is not in distress and does not have a suspicious abdominal exam. Continue to monitor, continue TPN and NPO. Ambulate. 10/31/17: POD#24: No evidence of nausea, distension or pain in his abdomen. Some slight amount more stool but not a significant amount. Continue TPN and watchful waiting. Patient experienced a non injury fall yesterday with no obvious sequelae. 11/01/17: POD#25. Doing well. Exam benign. Will recheck KUB this morning but still not much stoma activity. Continue TPN. If KUB looks good then may start slowly advancing diet and add bowel regimen such as miralax. 11/02/17: POD#26. Doing well, tolerating small amounts of liquid PO intake and Miralax. Abdominal exam is benign. Continue TPN. Will recheck labs and KUB tomorrow. 11/03/17: POD#27. Doing well. Tolerating small amounts of liquid PO and Miralax. KUB with mildly increased small bowel dilation but clinically he seems to be doing well. Will recheck KUB tomorrow and if it's not getting progressively worse and Kg isn't clinically worsening then will consider SLOWLY advancing his diet. Continue TPN in the mean time. Will convert him to depakote PO this morning. 11/04/17: POD#28. Doing well. Showing signs of improving bowel function and KUB with decreased SB dilation. Doing well on Miralax and colace. Will advance to full clear liquid diet without volume restrictions except will need to restrict his water intake due to his h/o psychogenic polydipsia. If he tolerates this today then will try full liquid diet tomorrow. Will continue TPN until tolerating regular diet. 11/05/17: POD#29. Doing well. Bowel function seems to be improving. Will start full liquid diet today. Continue fluid restriction. Continue Miralax and colace. Continue TPN until tolerating regular diet. 11/06/17: POD#30. Doing well. Had about 50cc out from colostomy. Made NPO yesterday, continue TPN. 11/07/17: POD#31: No changes. will check KUB to assess distention of bowels. If improvement may start clear liquid diet. 11/08/17: POD#32. No improvement. Will ask psychiatry to evaluate and consider medication adjustment in psych meds to improve bowel function. 11/09/17: POD#33. No improvement, continued ileus. Spoke with Dr. Pedraza with psychiatry yesterday and he recommended coming down on olanzapine to 10mg for 2 days then 5mg for 2 days then stop. Will replace NG tube if pt continues with emesis. Will stop PO meds. Continue TPN. 11/10/17: POD#34. No signs of improved bowel function this morning. Will continue to come down on olanzapine and follow bowel function. Continue bowel rest and TPN. 11/11/17: POD#35. KUB a little better but clinically not improving yet. Continue to come down on olanzapine. Will get 2nd day of 5mg tonight and then will stop it and monitor bowel function. Continue bowel rest and TPN. 11/12/17: POD#36. KUB with continued improvement. He's developed a rattle in his chest and a productive cough and CXR c/w PNA. Will ask Hospitalists to consult to direct abx coverage. Will stop olanzapine today and monitor bowel function. Continue bowel rest and TPN until bowel function clearly returns. 11/13/17: Little bit more activity from his stoma today. His abdomen is nice and soft without any tenderness. He has been off the Zyprexa for 24 hours. We' ll continue bowel rest and TPN. We'll get a KUB tomorrow and if it is looking good, essentially normal, then we'll consider slowly restarting clears but we' ll start with a bowel regimen 1st. Hospitalists have evaluated the patient and do not think that he has a pneumonia. He certainly clinically looks better from a respiratory standpoint today. He is not having a productive cough, his white blood cell count is normal, and he is not having any fevers, and he has not been having increased oxygen requirements. 11/14/17: KUB improving. Abdomen is soft and nontender. Will start colace and miralax today and if he does well with this then tomorrow will try clear diet again. O/W CCM. 11/15/17: KUB shows continued improvement. Abdomen is soft and nontender. Will start small volume clear diet in addition to the colace and miralax that I started yesterday. Will limit him to no more than 30ml/4hours. O/W [facility]. 11/16/17: KUB about the same. Has really only had apple juice. Will encourage jell-o, broth, etc but will keep limit of 30mL/4 hours. Continue colace and miralax. Continue lovenox, PPI, etc. (2) Pneumonia Status: Resolved Assessment & Plan: Hospitalist consultation to start appropriate empiric abx coverage for HAP. (3) Urinary retention with incomplete bladder emptying Status: Chronic Assessment & Plan: Started flomax, will follow response. (4) Bipolar disorder, unspecified Status: Chronic Assessment & Plan: On Home medications (5) ANEMIA IN OTHER CHRONIC DISEASES CLASSIFIED ELSEWHERE Status: Chronic Assessment & Plan: Anemia likely secondary to chronic disease; Monitor (6) Hyponatremia Status: Chronic Assessment & Plan: 10/16/17: Appears to be euvolemic; Can adjust IV Fluids; Monitor 10/17/17: Sodium 132; on fluid restriction. IVF changed to NS from 2NS. Monitor (7) Hypoalbuminemia due to protein-calorie malnutrition Status: Chronic Assessment & Plan: Albumin 2.0; On TPN; Remains NPO due to ileus or bowel dysmotility (8) Hypoxia Status: Resolved Assessment & Plan: Remains on 2 liters Nasal Canula; Encourage ambulation/ assisted; Attempt O2 weaning (9) Peristomal hernia Status: Chronic Assessment & Plan: Present on admission exam and CT scan. Does not appear to be the source of his SBO. Easily reducible. Monitor during this acute process but may need repair remotely. Condition Stable. Time Spent: < 30 min Exam Sepsis Risk: No Definite Risk Problem Qualifiers (1) Pneumonia: Pneumonia type: due to unspecified organism Laterality: unspecified laterality Lung location: unspecified part of lung Qualified Codes: J18.9 - Pneumonia, unspecified organism ZACH CLAUDIO MD Nov 16, 2017 07:00
[2017-11-16] MEDS: ACETAMINOPHEN(*)1000 MG/100 ML 100 ML IVPB PRN ×3 (07:28→21:13)
[2017-11-16 08:54] VITALS: BP 132/42
[2017-11-16] MEDS: PANTOPRAZOLE SOD 40 MG IV VIAL IVP SCH (08:56)
[2017-11-16] MEDS: POLYETHYLENE GLYCOL 17 GM PKT PO SCH (08:57)
[2017-11-16] MEDS: ENOXAPARIN 40 MG/0.4ML SYR SC SCH (08:57)
[2017-11-16] MEDS: DIVALPROEX SOD ER 500 MG TABSR PO SCH ×2 (08:57→21:13)
[2017-11-16] MEDS: DOCUSATE SODIUM 100 MG CAP PO SCH ×2 (08:57→21:16)
[2017-11-16 11:02] VITALS: BP 147/76
[2017-11-16 14:19] VITALS: BP 104/71
--- NOTE | 2017-11-16 16:02 | RADIOLOGY IMAGING REPORT ---
FAC[place] [facility] [place]IENT NAME: Matthew Roth : 1960 MR: [id number] V: [id number] EXAM DATE: ORDERING PHYSICIAN: ZACH CLAUDIO TECHNOLOGIST: [place] [facility] [place] Patient: Matthew Roth : 1960 Visit/Account:[id number] Date of Sevice: 11/14/2017 Exam type: KUB SINGLE VIEW ABDOMEN History: ileus Comparison: November 12, 2017 at 5:14 AM Images have just now been some interval formal dictation. Findings: There has been further improvement in the bowel gas pattern. Large and small bowel no longer appear dilated. There is an ostomy ring projecting in the left lower abdomen. Coarse calcifications projec t over the lower pelvis likely within the prostate. IMPRESSION: 1. Improving bowel gas pattern with no evidence of bowel dilatation at this time Report Dictated By: Keena Herrera MD at 11/16/2017 3:56 PM Report E-Signed By: Keena Herrera MD at 11/16/2017 3:58 PM WSN:[id number]
[2017-11-16] MEDS: FAT EMULSION 20% 250 ML BAG 250 ML IVPB SCH (18:09)
[2017-11-16] MEDS: [UNRECOGNIZED DRUG - OTHER] IV SCH (18:10)
[2017-11-16 21:20] VITALS: BP 139/72
[2017-11-17] MEDS: KETOROLAC 15 MG/ML VIAL IVP PRN ×4 (00:21→18:22)
[2017-11-17 02:36] VITALS: BP 109/74
[2017-11-17] MEDS: ACETAMINOPHEN(*)1000 MG/100 ML 100 ML IVPB PRN ×4 (03:15→22:12)
[2017-11-17] MEDS: NS(*) 0.9% 250 ML BAG 250 ML IVPB PRN (03:16)
[2017-11-17 06:09] LABS: PLATELET COUNT, AUTOMATED 613 K/uL (150-450)
--- NOTE | 2017-11-17 06:45 | General Surgery Progress Note ---
Subjective Progress Notes Subjective Sleeping. Apparently was awake all night long and just fell asleep 30 minutes ago. Was continuing to complain of "having to pee" all the time which he has been doing this whole admission but he also had "urinary issues" even before his rectal cancer resection. Physical Exam Vital Signs Date Time Temp Pulse Resp B/P (MAP) Pulse Ox O2 Delivery O2 Flow Rate FiO2 11/17/17 02:36 98.0 93 22 109/74 (86) 93 Nasal Cannula 1.0 General Appearance: No Acute Distress, Afebrile GI: Soft and Non-Tender (Stoma is pink with small gas and stool in bag.) Extremities: Warm, Perfused Result Diagram: 11/15/17 0515 11/17/17 0516 Assessment and Plan Problems: (1) Small bowel obstruction due to postoperative adhesions Status: Acute Assessment & Plan: 10/04/17: Admit, nothing by mouth, IV fluids, bowel rest, conservative management start with. We'll follow his x-rays and NG tube output as well as stoma output. We will hold off on any sort of surgery until he is about 6 weeks out from his initial resection surgery. Hopefully he will respond to conservative management. His last meal was yesterday and his mother reports that he has been eating reasonably well. If he is unable to eat and about 5 or 6 days then we will need to consider a PICC line and starting TPN. I have explained this plan to the patient's mother and she seems to understand and seems to be agreeable with this plan. 10/05/17: Continued small bowel obstruction clinically and radiographically based on his KUB this morning. Will continue conservative management with NG tube decompression, bowel rest, and IV fluids. Continue IV antibiotics for pneumonia. If he fails to get better in the next several days may consider diagnostic laparoscopy with drainage of the pelvic fluid collection and inspection of his small bowel. We'll let his small bowel decompress further before contemplating this. 10/06/17: Will give po gastrograffin and will get CT this afternoon. KUB a little better but not much function from stoma. May need to consider exploratory laparoscopy tomorrow if not getting better. Stoma with white patches and area of necrosis on inferior portion only. Possibly the stoma appliance was cut too tight and pressing on the stoma, will need to follow this. Will add antifungal coverage in case white patches represent fungal infection of stoma although I don't recall every having seen this. Pt still with intermittent low grade fevers on broad spectrum antibiotic coverage so antifungal coverage will broaden that coverage as well. O/W, CCM. 10/07/17: Not much change. No stoma output. KUB has not yet been done this morning. Labs OK. Still with low grade fevers. WBC normal, neutrophil count coming down. CT abd/pelvis yesterday with decreased small bowel distension but still with evidence of SBO, fluid collection in unchanged, no free fluid or air. 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 Will await KUB. Getting to the point where we will need to consider PICC line and starting TPN. May discuss laparoscopic exploration later today; will discuss with patient's mother. 10/08/17: 4 weeks s/p robotic LAR, POD#1 s/p ex-laparoscopy with RILEY and drainage of presacral fluid. Doing well. WBC normal. Will follow fevers/ vitals, etc. Place PICC today to start TPN. Await return of bowel function. 10/09/17: POD2 ex laparoscopy. Awaiting return of bowel function. +BS and minimal NGT output so may be soon. Plan to start TPN on Wednesday. Patient needs to ambulate. Continue abx for pneumonia. Will try to remove perez catheter tomorrow. 10/10/17: POD3 ex laparoscopy. Still awaiting return of bowel function. Clamp NGT till noon and remove if low residuals and in good position on KUB. continue abx, continue perez. dropped MIVF to 75cc/hr. Patient is not participating with therapy. Good bowel sounds so started bowel reg today, senna s/miralax. 10/11/17: POD4 ex laparoscopy. Awaiting bowel function. NGT removed yesterday. Plan PICC/TPN today. Will need swallow eval before taking orals, could not tolerate bowel reg yesterday. May attempt to remove perez today. Ordered labs. 10/12/17: POD#5. Stable. Started TPN yesterday. KUB with gas throughout colon , I suspect we'll start seeing gas in stoma bag in next day or two. Still some dilated small bowel but colon looks better on KUB. Perez out, patient seems to be urinating without problems. CCM until bowel function returns. 10/13/17: POD#6. Doing well but still no evidence of bowel function. Continue bowel rest and TPN. Await return of bowel function. COntinue lovenox and PPI. CCM. 10/14/17: POD#7. Doing well. DAQUAN removed yesterday. KUB continues to improve with gas to distal colon but still no activity from stoma yet. Continue bowel rest and TPN while we await return of bowel function. Continue lovenox and PPI. 10/15/17: POD#8. Doing well but now with mild fevers and intermittent tachycardia. He has no pain and his abdominal exam is benign. Will get CXR and check UA. He's not on abx other than diflucan at this point. Continue bowel rest and TPN until bowel function returns. Continue lovenox, PPI. Hopeful for return of bowel function soon. 10/16/17: POD#9. Appears to be at his baseline. Ambulated with PT yesterday> 100 feet. Urinary incomplete emptying- started on Flomax 10/15. Stoma was irrigated with Fleets Enema by Dr Claudio 10/15 with nothing more out than enema fluid. He has no pain and his abdominal exam is benign. 10/15/17 with T max 100.4- CXR was clear and UA was clear--both improved today. Off abx but remains on Diflucan for rodna appearance of the stoma noted earlier in hospitalization. Will do a trial of Erythromycin for potential bowel dysmotility (secondary to bipolar meds?) Continue bowel rest and TPN until bowel function returns. Continue Lovenox, PPI. 10/17/17: POD#10. Appears to be at his baseline. Ambulated with PT yesterday> 100 feet x 2; stronger. Urinary incomplete emptying- started on Flomax 10/15 and bladder scan was minimal for retained fluid. Started on po erythromycin for dysmotility. Stoma with large gas and small liquid out. Started on clear liquids today. He has no pain and his abdominal exam is benign. Off abx and diflucan now while undergoing trial of Erythromycin. Continue TPN until full bowel function/appetite returns. Continue Lovenox, PPI. 10/17/17 (Addendum @ 1220): Intermittent tachycardia. Peristomal hernia noted upon standing by nursing staff. This has been noted previously. No gas output or liquid output since 0600 this AM. Abdomen remains benign to my exam. Discussed care plan with Dr Claudio and will try another enema today. Will continue erythromycin as a potential pro motility agent. 10/18/17: POD#11. Worsened from GI standpoint. Now with increased abdominal distension with N/V this morning. I stopped erythromycin and backed off on his diet. He had a fever this morning to 101F. Will obtain saucedo-cultures including cultures from his PICC line. Will get CXR, empirically start primaxin. May need to repeat abdominal CT. Will see how he does today and what cultures show , etc reveal. 10/19/17: POD#12. Doing better after Perez, NG tube placed and abx restarted. KUB c/w worsened ileus vs SBO. Fevers to over 101F yesterday, no fevers overnight, HR down this morning. Will repeat CT abd/pelvis today. Continue bowel rest, NG tube, TPN. No growth from cultures yet. 10/20/17: POD#13. Still without bowel function. CT c/w SBO with loop in pelvis and continued small bowel thickening in pelvis. Presacral fluid collection is small. Parastomal hernia but no obstruction. Pt's been afebrile now back on Primaxin. Continue bowel rest, NG tube decompression, TPN. No growth in cultures. Perez out last evening. Will see how he's able to void bladder. Will get SBFT with water-soluble contrast today. 10/21/17: POD#14. Possibly doing better? Having some stool output in bag. NG not putting out too much. Will start NG clamp trials. SBFT yesterday revealed no obstruction but c/w adynamic ileus. Now starting to see gastrograffin in stoma bag. Will try erythromycin as promotility agent. 10/22/17: POD#15. Now with stoma output after gastrograffin SBFT but still with dilated loops of small bowel on KUB. Continue NG clamp trials today and follow KUB. Started erythromycin yesterday, will see how effective this is. Continue bowel rest, TPN, etc until GI function clearly returning to normal. 10/23/17: POD#16. Doing well but KUB still with unchanging dilated loops of small bowel. NG not putting much out and pt tolerating clamp trials so will d/ c NG but will continue bowel rest and TPN. Continue erythromycin. 10/24/17: POD#17. Doing well. NG removed yesterday. Pt doing well. Still with ileus as no gas in bag. Will recheck KUB tomorrow morning. Continue bowel rest. May need to discuss Kg with psychiatry to discuss his medication' s role in prolonged ileus. Continue TPN. 10/25/17: POD#18. Doing well. Now having some gas from stoma. KUB looks a little better this morning with decreased dilated loops of small bowel. Hospital is out of Erythromycin IV and it is on backorder. Will change to PO erythromycin for promotility effects. Will o/w continue bowel rest until more signs of bowel activity since the last time she showed signs of gas and stool from his stoma when he was advanced to clears he became severely distended and we needed to replace his NG tube and resume rx for ileus vs SBO. Continue TPN until tolerating regular diet. 10/26/17: POD#19. Doing well. Increasing gas in stoma bag. Still with dilated loops of small bowel on KUB. Will hold of on diet for now until KUB markedly better and stoma bag consistently with a lot of gas in it (it is intermittent currently) given his previous intolerance to clear diet a couple of weeks ago when he acutely redeveloped his ileus. Continue bowel rest and TPN, continue PO erythromycin for promotility. 10/27/17: POD#20. Doing well. Bowel function improving. Will get KUB tomorrow morning and if small bowel dilation resolved then will slowly advance diet. Continue erythromycin, bowel rest, TPN today. 10/28/17: POD#21. Doing well. No gas in bag this morning. KUB with improving but still dilated loops of small bowel. Will see how his stoma is functioning today. Will change stoma bag to a new one to get a sense of stool output today. Continue bowel rest, TPN, erythromycin today. If he's putting gas/ stool out as today progresses, may try clear diet later today. 10/29/17: POD#22. No stoma activity once again. No gas or stool in bag for last 36-48hrs. Will check KUB this morning. O/W, continue bowel rest, TPN, erythromycin. 10/30/17: POD#23. Still no activity from the stoma. Patient is not in distress and does not have a suspicious abdominal exam. Continue to monitor, continue TPN and NPO. Ambulate. 10/31/17: POD#24: No evidence of nausea, distension or pain in his abdomen. Some slight amount more stool but not a significant amount. Continue TPN and watchful waiting. Patient experienced a non injury fall yesterday with no obvious sequelae. 11/01/17: POD#25. Doing well. Exam benign. Will recheck KUB this morning but still not much stoma activity. Continue TPN. If KUB looks good then may start slowly advancing diet and add bowel regimen such as miralax. 11/02/17: POD#26. Doing well, tolerating small amounts of liquid PO intake and Miralax. Abdominal exam is benign. Continue TPN. Will recheck labs and KUB tomorrow. 11/03/17: POD#27. Doing well. Tolerating small amounts of liquid PO and Miralax. KUB with mildly increased small bowel dilation but clinically he seems to be doing well. Will recheck KUB tomorrow and if it's not getting progressively worse and Kg isn't clinically worsening then will consider SLOWLY advancing his diet. Continue TPN in the mean time. Will convert him to depakote PO this morning. 11/04/17: POD#28. Doing well. Showing signs of improving bowel function and KUB with decreased SB dilation. Doing well on Miralax and colace. Will advance to full clear liquid diet without volume restrictions except will need to restrict his water intake due to his h/o psychogenic polydipsia. If he tolerates this today then will try full liquid diet tomorrow. Will continue TPN until tolerating regular diet. 11/05/17: POD#29. Doing well. Bowel function seems to be improving. Will start full liquid diet today. Continue fluid restriction. Continue Miralax and colace. Continue TPN until tolerating regular diet. 11/06/17: POD#30. Doing well. Had about 50cc out from colostomy. Made NPO yesterday, continue TPN. 11/07/17: POD#31: No changes. will check KUB to assess distention of bowels. If improvement may start clear liquid diet. 11/08/17: POD#32. No improvement. Will ask psychiatry to evaluate and consider medication adjustment in psych meds to improve bowel function. 11/09/17: POD#33. No improvement, continued ileus. Spoke with Dr. Pedraza with psychiatry yesterday and he recommended coming down on olanzapine to 10mg for 2 days then 5mg for 2 days then stop. Will replace NG tube if pt continues with emesis. Will stop PO meds. Continue TPN. 11/10/17: POD#34. No signs of improved bowel function this morning. Will continue to come down on olanzapine and follow bowel function. Continue bowel rest and TPN. 11/11/17: POD#35. KUB a little better but clinically not improving yet. Continue to come down on olanzapine. Will get 2nd day of 5mg tonight and then will stop it and monitor bowel function. Continue bowel rest and TPN. 11/12/17: POD#36. KUB with continued improvement. He's developed a rattle in his chest and a productive cough and CXR c/w PNA. Will ask Hospitalists to consult to direct abx coverage. Will stop olanzapine today and monitor bowel function. Continue bowel rest and TPN until bowel function clearly returns. 11/13/17: Little bit more activity from his stoma today. His abdomen is nice and soft without any tenderness. He has been off the Zyprexa for 24 hours. We' ll continue bowel rest and TPN. We'll get a KUB tomorrow and if it is looking good, essentially normal, then we'll consider slowly restarting clears but we' ll start with a bowel regimen 1st. Hospitalists have evaluated the patient and do not think that he has a pneumonia. He certainly clinically looks better from a respiratory standpoint today. He is not having a productive cough, his white blood cell count is normal, and he is not having any fevers, and he has not been having increased oxygen requirements. 11/14/17: KUB improving. Abdomen is soft and nontender. Will start colace and miralax today and if he does well with this then tomorrow will try clear diet again. O/W CCM. 11/15/17: KUB shows continued improvement. Abdomen is soft and nontender. Will start small volume clear diet in addition to the colace and miralax that I started yesterday. Will limit him to no more than 30ml/4hours. O/W CCM. 11/16/17: KUB about the same. Has really only had apple juice. Will encourage jell-o, broth, etc but will keep limit of 30mL/4 hours. Continue colace and miralax. Continue lovenox, PPI, etc. 11/17/17: KUB slightly improved. Stoma with increased output, both gas and stool. Will advance to unrestricted clear diet but will limit fluids to 1500mL/ 24 hours due to psychogenic polydipsia. Will insert perez and see how much urine is in his bladder and will see if his urinary symptoms improve with bladder decompression. Will also send UA. Continue colace and miralax. Continue lovenox, PPI, etc. K up to 5.1 this morning, will recheck tomorrow. (2) Pneumonia Status: Resolved Assessment & Plan: Hospitalist consultation to start appropriate empiric abx coverage for HAP. (3) Urinary retention with incomplete bladder emptying Status: Chronic Assessment & Plan: Started flomax, will follow response. (4) Bipolar disorder, unspecified Status: Chronic Assessment & Plan: On Home medications (5) ANEMIA IN OTHER CHRONIC DISEASES CLASSIFIED ELSEWHERE Status: Chronic Assessment & Plan: Anemia likely secondary to chronic disease; Monitor (6) Hyponatremia Status: Chronic Assessment & Plan: 10/16/17: Appears to be euvolemic; Can adjust IV Fluids; Monitor 10/17/17: Sodium 132; on fluid restriction. IVF changed to NS from 1/2NS. Monitor (7) Hypoalbuminemia due to protein-calorie malnutrition Status: Chronic Assessment & Plan: Albumin 2.0; On TPN; Remains NPO due to ileus or bowel dysmotility (8) Hypoxia Status: Resolved Assessment & Plan: Remains on 2 liters Nasal Canula; Encourage ambulation/ assisted; Attempt O2 weaning (9) Peristomal hernia Status: Chronic Assessment & Plan: Present on admission exam and CT scan. Does not appear to be the source of his SBO. Easily reducible. Monitor during this acute process but may need repair remotely. Condition Stable. Time Spent: < 30 min Exam Sepsis Risk: No Definite Risk Problem Qualifiers (1) Pneumonia: Pneumonia type: due to unspecified organism Laterality: unspecified laterality Lung location: unspecified part of lung Qualified Codes: J18.9 - Pneumonia, unspecified organism ZACH CLAUDIO MD Nov 17, 2017 06:44
--- NOTE | 2017-11-17 07:19 | RADIOLOGY IMAGING REPORT ---
FACILITY: [facility] PATIENT NAME: Matthew Roth : 1960 MR: [id number] V: [id number] EXAM DATE: ORDERING PHYSICIAN: ZACH CLAUDIO TECHNOLOGIST: Location: [facility] [place] Patient: Matthew Roth : 1960 Visit/Account:[id number] Date of Sevice: 11/17/2017 KUB SINGLE VIEW ABDOMEN HISTORY: ileus Single KUB R comparison made to previous study of 11/16/2017 FINDINGS: Nonspecific bowel gas pattern. Air-filled loops of what appear to be splenic flexure in the left upper quadrant. No abdominal mass lesions. No abnormal calcifications. IMPRESSION: 1. Basically unchanged appearance when compared to the previous film accounting for differences in [place]. Report Dictated By: Landen Lundberg MD at 11/17/2017 7:10 AM Report E-Signed By: Landen Lundberg MD at 11/17/2017 7:15 AM WSN:[id number]
[2017-11-17 09:19] VITALS: BP 152/71
[2017-11-17] MEDS: ENOXAPARIN 40 MG/0.4ML SYR SC SCH (09:39)
[2017-11-17] MEDS: PANTOPRAZOLE SOD 40 MG IV VIAL IVP SCH (09:39)
[2017-11-17] MEDS: POLYETHYLENE GLYCOL 17 GM PKT PO SCH (09:39)
[2017-11-17] MEDS: DIVALPROEX SOD ER 500 MG TABSR PO SCH ×2 (09:40→21:08)
[2017-11-17] MEDS: DOCUSATE SODIUM 100 MG CAP PO SCH ×2 (09:40→21:07)
--- NOTE | 2017-11-17 09:58 | Medical Nutrition Therapy ---
Nutrition Anthropometrics Height (Inches): 67.00 Height (Calculated Centimeters: 170.974348 Weight (Pounds): 142 Weight (Calculated Kilograms): 64.495 BMI: 22.5 Sherman Nutrition Score: Probably Inadequate Sherman Nutrition Risk Score: 17 Dietary Referral Nutrition Risk Factors: Nutrition Risk Comment: Physical Findings Physical Appearance: WNR 22.5 Skin Appearance Skin Appearance: Edema Edema Location Modifier: Both Edema Location: Ankle Type of Edema: Degree of Edema: Gastrointestinal Symptoms GI Symtoms: Change in Bowel Pattern Tube Present: NG Bowel Sounds: Recent Bowel Pattern: Stool Characteristics: Brown, Soft Nutritional Diagnosis Nutritional Risk Acuity 1: TPN/PPN, GI Obstruction (SBO) Nutritional Risk Acuity 3: Colostomy Past Medical History: fecal incontinence, severe manic bipolar 1 disorder with psychotic behavior, psychogenic polydipsia, hyponatremia, OCD, rectal cancer, SBO, fatigue, weakness, hyperlipidemia, pneumonia, hx colon cancer, pevlic fluid collection Nutritional Acuity: 1-High Nutrition Diagnosis: Inadequate Food Intake Nutrition Etiology: Physiological Causes Nutrition Problem/Etiology/Sym: Inadequate oral intake related to physiological causes as evidence by nutrition support from TPN. Energy Requirement: 2515 (Miffliin-St.Jeor X 1.3SF) Protein Requirement: 86 (1.3gm/kg) Fluid Requirement: 2000 (30ml/kg) Diet Type: TPN/PPN Nutrition Intervention: Nutrition support (TPN ) Additional Diet Restrictions: CHECK WITH NURSING ON AMOUNT OF FLUIDS TO PROVIDE Nutritional Support Current Enteral / Parental: TPN Rate: 100 mL/hr Clinimex 5%AA + 20% Dex. + 20% lipid / 12 hrs Current Duration: 24 Current Calories: 2112 Current Protein: 120 Current Lipids Calories: 500 Total Current Calories: 2612 Nutrition Monitoring & Eval RD Patient Assessment Time: [address] Assessment Type: RD Re-Assessment Patient Nutrition Acuity: 1-High Follow Up Date: Nov 19, 2017 Nutritional Comment: 10/05 Pt admitted for SBO and pneumonia. Pt is experiencing N/V, fever and abdominal pain. Pt is on NPO diet with meds only. Pt has a hx of colon cancer. Pt had a colostomy placed (09/10). Pt mother states the his bowel movements have in his bag have been more bulky. She states that he eats reasonably well. However, in doctor's note he had stated if pt does not eat within the next 5-6 days a PICC line and TPN would be placed. Mother agreed to this plan. Pt WBC was elevated and has reach WNR. Pt is on antibiotics for pneumonia. Pt has pelvic fluid collection and at risk for sepsis. Pt has low Na (130) and low H/H. Continue to monitor pt progress, labs and diet advancement. -MT 10/07 Pt continues on NPO diet, he is now on day three. Pt states that he wants water. Pt still has evidence of SBO and fluid collection. In the doctor's note it states pt is getting to the point where we will need to consider PICC line and starting TPN. Pt may benefit from 1800 ml TPN at 75ml/hr providing 1836 kcal ad 76g protein. This will meet 94% of the pt energy needs and 97% protein. Pt has low alb (2.3), no other concern labs at this time. Will continue to monitor pt progress and TPN order. -MT 10/08 Pt 4th day NPO. Per Dr notes, pt will start TPN today. Alb has declined to 2. Recommend final TPN rate of 75 ml/hr plus lipids to meet 109% est kcal and 97% est protein needs. BK 10/10 Low H/H, Alb 2.0, Low Ca+. TPN delayed until Wednesday (10/11), bowel sounds now present. Follow clinical progression. -DRT 10/12 Continues to have low H/H, low WBC, Na (127), alb (2.1) and elevated K+ (6.9). Pt started TPN (10/11). NG tube and perez removed. Pt did swallowing eval. No concern at this time. Will continue to monitor pt progress and diet advancement. -MT 10/15 No complaints. Pt has mild fever. Pt is still weak and experiencing tremors in both LE. DAQUAN removed yesterday (10/14). Colostomy bag continues to have gas in it, however no BM. Per doctor note continue bowel rest and TPN while we await return of bowel function. Pt urinary retention and pneumonia have been resolved. Pt Na is low (133). Pt is receiving IV Na PRN. Will continue to monitor pt progress, labs and encourage intake.-MT 10/18 Pt continues on TPN until bowel function returns to normal. Per doctor note, will do a trial of Erythromycin for potential bowel dysmotility. Did two enemas, got some liquids in colostomy bag. However doctors note states GI has gotten worse. Pt is distended with N/V. Pt had a fever yesterday (101) with elevated WAC (11.1) and blood glucose ( 128). Pt has had a 5# wt loss since 10/12 (146#) to now (141). Will continue to monitor pt progress, labs and diet advancement. -MT 10/20 Wt is down 10# since admission. Alb 2.5 is improving. Pt cont on TPN. Reassessed nutritional needs with est higher kcal and protein needs. Recommend increase TPN to 2000 ml/24 hr plus 250ml lipids 12 hrs to meet 95% est kcal and 98% est protein needs. Cont to monitor. BK 10/23 Pt cont on TPN with hypoactivbe bowel sounds. TPN was increased to 2000ml/24 hr to meet 95% est kcal and 98% est protein needs. Alb at 2.3 slowly increaseing . Wt is up 2#. Will cont to monitor. BK 10/25 Pt cont on TPN with hypoactivbe bowel sounds and maryanne from stoma. TPN is meeting 95% est kcal and 98% est protein needs. Alb at 2.4 is slowly increaseing . Wt is within usual range. Will cont to monitor. BK 10/28 Pt cont on TPN however on10/24 pharmacy changed to a 15% dextrose, 5% protein solution which provides 1420 kcal + 500 from lipid for total kcal of 2020 and 100 gm protein. This meets 80% est kcal and 116% est protein needs. Pt has lost wt from 144# on 10/24 to 133# on 10/27 with some of the wt loss probalby r/t fluids. However recommend increase TPN to 3000ml/day to provide 2630 kcal to meet 105% est kcal and 174% est protein needs to avoid futher wt loss. Alb declined to 2.3 so additional protein would be helpful. Recommend cont TPN until oral intake can meet nutr needs. BK 10/29 TPN increased to 3L/day of Clinimex 09/07. TPN is now meeting 105% est kcal needs, 174% est protein needs. Wt is back up 4#. Cont down 19% from admit wt. Alb 2.3. Cont to monitor. BK 11/01 Pt continues on TPN 3L/day Clinimex 09/07. Pt. has hypoactive bowel sounds, no gas from stoma. Wt. is fluctuating between 133-135# over past 4 days. Alb. has increased to 2.6. May advance diet with Miralax pending KUB. On 10/30 pt. was asleep, but talked with mother - will educate on high kcal/protein diet once off TPN. Will continue to monitor. RB 11/04 Diet advanced to clear liquids with TPN 3L/day Clinimex 09/07 to meet needs. Pt. seems to be tolerating well - ate 25% of clear tray at breakfast on 11/03. Flatus present and improving KUB function. Alb. now at 2.8, continues to trend upward. Wt. also fluctuating btw. 132-139# over the past week, now at 138#. On water restriction per Dr. barreto due to psychogenic polydipsia. BUN running slightly high (22) on 11/01 and 11/03 but WNL previously. Sodium levels slightly low at 134, avg. 132-136. Will continue to monitor progress, labs and diet advancement. RB 11/05 Diet advanced to med liquid/GI soft. No intake reported at this time. Nursing providing foods. Wt up slightly 10 139# but within the range he has been fluctuating. Pt cont on TPN which is meeting nutritional needs. Will cont to monitor. BK 11/07 Was informed by pharmacy that they are on the last bottle of Cinimex 15% dextrose, 5% AA. They will be able to stock and cont to keep on hand Cinimex 20% dextrose, 5% AA. Recommend change to that formula at a rate of 100ml/hr plus lipids to provide 2612 kcal, 100g protein to meet 104% est kcal and 120% est protein needs. Dr Calvillo was called and informed of the unaviabilty of the previous TPN solution and the recommended change. BK 11/08 TPN was changed to recommended rate with Clinimex 5% AA / 20% Dex at 100 mL/hr. This provides 104% est kcal and 120% est protein needs. Pt. has distended hypoactive bowel - no improvement in KUB per note. Blood glucose 104 today. Wt continues to trend upward; he is at 64.4kg. Will monitor wt., labs and TPN. - RB 11/14 Continued ileus with NPO status and TPN. Low H/H, Ca+ 8.2, Na+ 132. Wt 65.516. Monitor clinical progression, labs, wt, TPN, etc. -DRT 11/16 Pt cont on TPN with small amounts of clear liquids. TPN is meeting 104% est kcal nad 139% est protein needs. Pt is consuming small amounts of clear liquids. Wt has stablized between 139-144# past week. Pt was admitted at 170# and is currently 142#. Pt is up from a low wt of 126#. Alb cont low at 2.8 but is improved from a low of 2. Will cont to monitor. ETHAN 11/17 Pt cont TPN and on clear liquids but with fluid restrictions. Will have RSA check with nursing on amount of fluids allowed for pt for meals. JOE PADILLA Nov 17, 2017 09:58
[2017-11-17 11:35] VITALS: BP 126/87
[2017-11-17] MEDS: [UNRECOGNIZED DRUG - OTHER] IV SCH (12:18)
[2017-11-17] MEDS: FAT EMULSION 20% 250 ML BAG 250 ML IVPB SCH (18:19)
[2017-11-17 20:24] VITALS: BP 122/76
[2017-11-18] MEDS: KETOROLAC 15 MG/ML VIAL IVP PRN ×4 (00:48→19:53)
[2017-11-18 03:23] VITALS: BP 151/83
[2017-11-18] MEDS: ACETAMINOPHEN(*)1000 MG/100 ML 100 ML IVPB PRN ×4 (04:14→22:46)
--- NOTE | 2017-11-18 07:01 | General Surgery Progress Note ---
Subjective Progress Notes Subjective No complaints. No pain. Physical Exam Vital Signs Date Time Temp Pulse Resp B/P (MAP) Pulse Ox O2 Delivery O2 Flow Rate FiO2 11/18/17 03:23 98.7 103 28 151/83 (105) 93 Nasal Cannula 1.0 General Appearance: Alert, Awake, No Acute Distress, Afebrile GI: Soft and Non-Tender (Stoma is pink with gas and stool in bag.) Extremities: Warm, Perfused Result Diagram: 11/17/17 0516 11/18/17 0538 Assessment and Plan Problems: (1) Small bowel obstruction due to postoperative adhesions Status: Acute Assessment & Plan: 10/04/17: Admit, nothing by mouth, IV fluids, bowel rest, conservative management start with. We'll follow his x-rays and NG tube output as well as stoma output. We will hold off on any sort of surgery until he is about 6 weeks out from his initial resection surgery. Hopefully he will respond to conservative management. His last meal was yesterday and his mother reports that he has been eating reasonably well. If he is unable to eat and about 5 or 6 days then we will need to consider a PICC line and starting TPN. I have explained this plan to the patient's mother and she seems to understand and seems to be agreeable with this plan. 10/05/17: Continued small bowel obstruction clinically and radiographically based on his KUB this morning. Will continue conservative management with NG tube decompression, bowel rest, and IV fluids. Continue IV antibiotics for pneumonia. If he fails to get better in the next several days may consider diagnostic laparoscopy with drainage of the pelvic fluid collection and inspection of his small bowel. We'll let his small bowel decompress further before contemplating this. 10/06/17: Will give po gastrograffin and will get CT this afternoon. KUB a little better but not much function from stoma. May need to consider exploratory laparoscopy tomorrow if not getting better. Stoma with white patches and area of necrosis on inferior portion only. Possibly the stoma appliance was cut too tight and pressing on the stoma, will need to follow this. Will add antifungal coverage in case white patches represent fungal infection of stoma although I don't recall every having seen this. Pt still with intermittent low grade fevers on broad spectrum antibiotic coverage so antifungal coverage will broaden that coverage as well. O/W, CCM. 10/07/17: Not much change. No stoma output. KUB has not yet been done this morning. Labs OK. Still with low grade fevers. WBC normal, neutrophil count coming down. CT abd/pelvis yesterday with decreased small bowel distension but still with evidence of SBO, fluid collection in unchanged, no free fluid or air. 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 Will await KUB. Getting to the point where we will need to consider PICC line and starting TPN. May discuss laparoscopic exploration later today; will discuss with patient's mother. 10/08/17: 4 weeks s/p robotic LAR, POD#1 s/p ex-laparoscopy with RILEY and drainage of presacral fluid. Doing well. WBC normal. Will follow fevers/ vitals, etc. Place PICC today to start TPN. Await return of bowel function. 10/09/17: POD2 ex laparoscopy. Awaiting return of bowel function. +BS and minimal NGT output so may be soon. Plan to start TPN on Wednesday. Patient needs to ambulate. Continue abx for pneumonia. Will try to remove perez catheter tomorrow. 10/10/17: POD3 ex laparoscopy. Still awaiting return of bowel function. Clamp NGT till noon and remove if low residuals and in good position on KUB. continue abx, continue perez. dropped MIVF to 75cc/hr. Patient is not participating with therapy. Good bowel sounds so started bowel reg today, senna s/miralax. 10/11/17: POD4 ex laparoscopy. Awaiting bowel function. NGT removed yesterday. Plan PICC/TPN today. Will need swallow eval before taking orals, could not tolerate bowel reg yesterday. May attempt to remove perez today. Ordered labs. 10/12/17: POD#5. Stable. Started TPN yesterday. KUB with gas throughout colon , I suspect we'll start seeing gas in stoma bag in next day or two. Still some dilated small bowel but colon looks better on KUB. Perez out, patient seems to be urinating without problems. CCM until bowel function returns. 10/13/17: POD#6. Doing well but still no evidence of bowel function. Continue bowel rest and TPN. Await return of bowel function. COntinue lovenox and PPI. CCM. 10/14/17: POD#7. Doing well. DAQUAN removed yesterday. KUB continues to improve with gas to distal colon but still no activity from stoma yet. Continue bowel rest and TPN while we await return of bowel function. Continue lovenox and PPI. 10/15/17: POD#8. Doing well but now with mild fevers and intermittent tachycardia. He has no pain and his abdominal exam is benign. Will get CXR and check UA. He's not on abx other than diflucan at this point. Continue bowel rest and TPN until bowel function returns. Continue lovenox, PPI. Hopeful for return of bowel function soon. 10/16/17: POD#9. Appears to be at his baseline. Ambulated with PT yesterday> 100 feet. Urinary incomplete emptying- started on Flomax 10/15. Stoma was irrigated with Fleets Enema by Dr Claudio 10/15 with nothing more out than enema fluid. He has no pain and his abdominal exam is benign. 10/15/17 with T max 100.4- CXR was clear and UA was clear--both improved today. Off abx but remains on Diflucan for ronda appearance of the stoma noted earlier in hospitalization. Will do a trial of Erythromycin for potential bowel dysmotility (secondary to bipolar meds?) Continue bowel rest and TPN until bowel function returns. Continue Lovenox, PPI. 10/17/17: POD#10. Appears to be at his baseline. Ambulated with PT yesterday> 100 feet x 2; stronger. Urinary incomplete emptying- started on Flomax 10/15 and bladder scan was minimal for retained fluid. Started on po erythromycin for dysmotility. Stoma with large gas and small liquid out. Started on clear liquids today. He has no pain and his abdominal exam is benign. Off abx and diflucan now while undergoing trial of Erythromycin. Continue TPN until full bowel function/appetite returns. Continue Lovenox, PPI. 10/17/17 (Addendum @ 1220): Intermittent tachycardia. Peristomal hernia noted upon standing by nursing staff. This has been noted previously. No gas output or liquid output since 0600 this AM. Abdomen remains benign to my exam. Discussed care plan with Dr Claudio and will try another enema today. Will continue erythromycin as a potential pro motility agent. 10/18/17: POD#11. Worsened from GI standpoint. Now with increased abdominal distension with N/V this morning. I stopped erythromycin and backed off on his diet. He had a fever this morning to 101F. Will obtain saucedo-cultures including cultures from his PICC line. Will get CXR, empirically start primaxin. May need to repeat abdominal CT. Will see how he does today and what cultures show , etc reveal. 10/19/17: POD#12. Doing better after Perez, NG tube placed and abx restarted. KUB c/w worsened ileus vs SBO. Fevers to over 101F yesterday, no fevers overnight, HR down this morning. Will repeat CT abd/pelvis today. Continue bowel rest, NG tube, TPN. No growth from cultures yet. 10/20/17: POD#13. Still without bowel function. CT c/w SBO with loop in pelvis and continued small bowel thickening in pelvis. Presacral fluid collection is small. Parastomal hernia but no obstruction. Pt's been afebrile now back on Primaxin. Continue bowel rest, NG tube decompression, TPN. No growth in cultures. Perez out last evening. Will see how he's able to void bladder. Will get SBFT with water-soluble contrast today. 10/21/17: POD#14. Possibly doing better? Having some stool output in bag. NG not putting out too much. Will start NG clamp trials. SBFT yesterday revealed no obstruction but c/w adynamic ileus. Now starting to see gastrograffin in stoma bag. Will try erythromycin as promotility agent. 10/22/17: POD#15. Now with stoma output after gastrograffin SBFT but still with dilated loops of small bowel on KUB. Continue NG clamp trials today and follow KUB. Started erythromycin yesterday, will see how effective this is. Continue bowel rest, TPN, etc until GI function clearly returning to normal. 10/23/17: POD#16. Doing well but KUB still with unchanging dilated loops of small bowel. NG not putting much out and pt tolerating clamp trials so will d/ c NG but will continue bowel rest and TPN. Continue erythromycin. 10/24/17: POD#17. Doing well. NG removed yesterday. Pt doing well. Still with ileus as no gas in bag. Will recheck KUB tomorrow morning. Continue bowel rest. May need to discuss Kg with psychiatry to discuss his medication' s role in prolonged ileus. Continue TPN. 10/25/17: POD#18. Doing well. Now having some gas from stoma. KUB looks a little better this morning with decreased dilated loops of small bowel. Hospital is out of Erythromycin IV and it is on backorder. Will change to PO erythromycin for promotility effects. Will o/w continue bowel rest until more signs of bowel activity since the last time she showed signs of gas and stool from his stoma when he was advanced to clears he became severely distended and we needed to replace his NG tube and resume rx for ileus vs SBO. Continue TPN until tolerating regular diet. 10/26/17: POD#19. Doing well. Increasing gas in stoma bag. Still with dilated loops of small bowel on KUB. Will hold of on diet for now until KUB markedly better and stoma bag consistently with a lot of gas in it (it is intermittent currently) given his previous intolerance to clear diet a couple of weeks ago when he acutely redeveloped his ileus. Continue bowel rest and TPN, continue PO erythromycin for promotility. 10/27/17: POD#20. Doing well. Bowel function improving. Will get KUB tomorrow morning and if small bowel dilation resolved then will slowly advance diet. Continue erythromycin, bowel rest, TPN today. 10/28/17: POD#21. Doing well. No gas in bag this morning. KUB with improving but still dilated loops of small bowel. Will see how his stoma is functioning today. Will change stoma bag to a new one to get a sense of stool output today. Continue bowel rest, TPN, erythromycin today. If he's putting gas/ stool out as today progresses, may try clear diet later today. 10/29/17: POD#22. No stoma activity once again. No gas or stool in bag for last 36-48hrs. Will check KUB this morning. O/W, continue bowel rest, TPN, erythromycin. 10/30/17: POD#23. Still no activity from the stoma. Patient is not in distress and does not have a suspicious abdominal exam. Continue to monitor, continue TPN and NPO. Ambulate. 10/31/17: POD#24: No evidence of nausea, distension or pain in his abdomen. Some slight amount more stool but not a significant amount. Continue TPN and watchful waiting. Patient experienced a non injury fall yesterday with no obvious sequelae. 11/01/17: POD#25. Doing well. Exam benign. Will recheck KUB this morning but still not much stoma activity. Continue TPN. If KUB looks good then may start slowly advancing diet and add bowel regimen such as miralax. 11/02/17: POD#26. Doing well, tolerating small amounts of liquid PO intake and Miralax. Abdominal exam is benign. Continue TPN. Will recheck labs and KUB tomorrow. 11/03/17: POD#27. Doing well. Tolerating small amounts of liquid PO and Miralax. KUB with mildly increased small bowel dilation but clinically he seems to be doing well. Will recheck KUB tomorrow and if it's not getting progressively worse and Kg isn't clinically worsening then will consider SLOWLY advancing his diet. Continue TPN in the mean time. Will convert him to depakote PO this morning. 11/04/17: POD#28. Doing well. Showing signs of improving bowel function and KUB with decreased SB dilation. Doing well on Miralax and colace. Will advance to full clear liquid diet without volume restrictions except will need to restrict his water intake due to his h/o psychogenic polydipsia. If he tolerates this today then will try full liquid diet tomorrow. Will continue TPN until tolerating regular diet. 11/05/17: POD#29. Doing well. Bowel function seems to be improving. Will start full liquid diet today. Continue fluid restriction. Continue Miralax and colace. Continue TPN until tolerating regular diet. 11/06/17: POD#30. Doing well. Had about 50cc out from colostomy. Made NPO yesterday, continue TPN. 11/07/17: POD#31: No changes. will check KUB to assess distention of bowels. If improvement may start clear liquid diet. 11/08/17: POD#32. No improvement. Will ask psychiatry to evaluate and consider medication adjustment in psych meds to improve bowel function. 11/09/17: POD#33. No improvement, continued ileus. Spoke with Dr. Pedraza with psychiatry yesterday and he recommended coming down on olanzapine to 10mg for 2 days then 5mg for 2 days then stop. Will replace NG tube if pt continues with emesis. Will stop PO meds. Continue TPN. 11/10/17: POD#34. No signs of improved bowel function this morning. Will continue to come down on olanzapine and follow bowel function. Continue bowel rest and TPN. 11/11/17: POD#35. KUB a little better but clinically not improving yet. Continue to come down on olanzapine. Will get 2nd day of 5mg tonight and then will stop it and monitor bowel function. Continue bowel rest and TPN. 11/12/17: POD#36. KUB with continued improvement. He's developed a rattle in his chest and a productive cough and CXR c/w PNA. Will ask Hospitalists to consult to direct abx coverage. Will stop olanzapine today and monitor bowel function. Continue bowel rest and TPN until bowel function clearly returns. 11/13/17: Little bit more activity from his stoma today. His abdomen is nice and soft without any tenderness. He has been off the Zyprexa for 24 hours. We' ll continue bowel rest and TPN. We'll get a KUB tomorrow and if it is looking good, essentially normal, then we'll consider slowly restarting clears but we' ll start with a bowel regimen 1st. Hospitalists have evaluated the patient and do not think that he has a pneumonia. He certainly clinically looks better from a respiratory standpoint today. He is not having a productive cough, his white blood cell count is normal, and he is not having any fevers, and he has not been having increased oxygen requirements. 11/14/17: KUB improving. Abdomen is soft and nontender. Will start colace and miralax today and if he does well with this then tomorrow will try clear diet again. O/W CCM. 11/15/17: KUB shows continued improvement. Abdomen is soft and nontender. Will start small volume clear diet in addition to the colace and miralax that I started yesterday. Will limit him to no more than 30ml/4hours. O/W CCM. 11/16/17: KUB about the same. Has really only had apple juice. Will encourage jell-o, broth, etc but will keep limit of 30mL/4 hours. Continue colace and miralax. Continue lovenox, PPI, etc. 11/17/17: KUB slightly improved. Stoma with increased output, both gas and stool. Will advance to unrestricted clear diet but will limit fluids to 1500mL/ 24 hours due to psychogenic polydipsia. Will insert perez and see how much urine is in his bladder and will see if his urinary symptoms improve with bladder decompression. Will also send UA. Continue colace and miralax. Continue lovenox, PPI, etc. K up to 5.1 this morning, will recheck tomorrow. 11/18/17: KUB improving. Stoma output is increasing. Will start introducing soft/full liquid diet items slowly and see how he tolerates this. Remove perez this morning. There was only 55mL in bladder with perez insertion so he's not retaining urine, suspect urge to constantly void his bladder is psychogenic. UA neg for infection. Continue colace and miralax. Continue TPN until consistently tolerating regular diet. Continue lovenox, PPI, etc. (2) Pneumonia Status: Resolved Assessment & Plan: Hospitalist consultation to start appropriate empiric abx coverage for HAP. (3) Urinary retention with incomplete bladder emptying Status: Chronic Assessment & Plan: Started flomax, will follow response. (4) Bipolar disorder, unspecified Status: Chronic Assessment & Plan: On Home medications (5) ANEMIA IN OTHER CHRONIC DISEASES CLASSIFIED ELSEWHERE Status: Chronic Assessment & Plan: Anemia likely secondary to chronic disease; Monitor (6) Hyponatremia Status: Chronic Assessment & Plan: 10/16/17: Appears to be euvolemic; Can adjust IV Fluids; Monitor 10/17/17: Sodium 132; on fluid restriction. IVF changed to NS from 1/2NS. Monitor (7) Hypoalbuminemia due to protein-calorie malnutrition Status: Chronic Assessment & Plan: Albumin 2.0; On TPN; Remains NPO due to ileus or bowel dysmotility (8) Hypoxia Status: Resolved Assessment & Plan: Remains on 2 liters Nasal Canula; Encourage ambulation/ assisted; Attempt O2 weaning (9) Peristomal hernia Status: Chronic Assessment & Plan: Present on admission exam and CT scan. Does not appear to be the source of his SBO. Easily reducible. Monitor during this acute process but may need repair remotely. Condition Stable. Time Spent: < 30 min Exam Sepsis Risk: No Definite Risk Problem Qualifiers (1) Pneumonia: Pneumonia type: due to unspecified organism Laterality: unspecified laterality Lung location: unspecified part of lung Qualified Codes: J18.9 - Pneumonia, unspecified organism ZACH CLAUDIO MD Nov 18, 2017 07:01
--- NOTE | 2017-11-18 08:28 | RADIOLOGY IMAGING REPORT ---
FACILITY: [facility] [place] PATIENT NAME: Matthew Roth : 1960 MR: [id number] V: [id number] EXAM DATE: ORDERING PHYSICIAN: ZACH CLAUDIO TECHNOLOGIST: Location: [facility] Patient: Matthew Roth : 1960 Visit/Account:[id number] Date of Sevice: 11/18/2017 Exam type: KUB SINGLE VIEW ABDOMEN History: ileus Comparison: November 17, 2017. Findings: The bowel gas pattern is nonspecific. Ostomy ring projects in the left lower quadrant. A new tube p rojects over the lower pelvis. Calcifications in the lower pelvis likely within the prostate. IMPRESSION: 1. Nonspecific bowel gas pattern Report Dictated By: Keena Herrera MD at 11/18/2017 8:23 AM Report E-Signed By: Keena Herrera MD at 11/18/2017 8:25 AM WSN:[id number]
[2017-11-18] MEDS: POLYETHYLENE GLYCOL 17 GM PKT PO SCH (08:56)
[2017-11-18] MEDS: PANTOPRAZOLE SOD 40 MG IV VIAL IVP SCH (08:57)
[2017-11-18] MEDS: ENOXAPARIN 40 MG/0.4ML SYR SC SCH (08:57)
[2017-11-18] MEDS: DOCUSATE SODIUM 100 MG CAP PO SCH ×2 (08:57→20:56)
[2017-11-18] MEDS: DIVALPROEX SOD ER 500 MG TABSR PO SCH ×2 (08:58→20:56)
[2017-11-18] MEDS: [UNRECOGNIZED DRUG - OTHER] IV SCH (09:25)
[2017-11-18 11:01] VITALS: BP 105/67
[2017-11-18] MEDS: FAT EMULSION 20% 250 ML BAG 250 ML IVPB SCH (17:54)
[2017-11-18 20:58] VITALS: BP 118/75
[2017-11-18] MEDS: NS(*) 0.9% 250 ML BAG 250 ML IVPB PRN (22:46)
[2017-11-19] MEDS: KETOROLAC 15 MG/ML VIAL IVP PRN (02:05)
[2017-11-19 03:22] VITALS: BP 134/77
[2017-11-19] MEDS: ACETAMINOPHEN(*)1000 MG/100 ML 100 ML IVPB PRN (05:04)
[2017-11-19] MEDS: [UNRECOGNIZED DRUG - OTHER] IV SCH (05:46)
[2017-11-19 06:00] LABS: PLATELET COUNT, AUTOMATED 624 K/uL (150-450)
[2017-11-19] MEDS ORDERED: [UNRECOGNIZED DRUG - OTHER] IV SCH (07:08)
[2017-11-19 07:43] VITALS: BP 128/72
[2017-11-19] MEDS: IBUPROFEN 200 MG TAB PO PRN ×3 (07:46→19:47)
[2017-11-19] MEDS: DOCUSATE SODIUM 100 MG CAP PO SCH ×2 (11:04→20:50)
[2017-11-19] MEDS: PANTOPRAZOLE SOD 40 MG TABEC PO SCH (11:05)
[2017-11-19] MEDS: DIVALPROEX SOD ER 500 MG TABSR PO SCH ×2 (11:05→20:49)
[2017-11-19] MEDS: ENOXAPARIN 40 MG/0.4ML SYR SC SCH (11:05)
[2017-11-19] MEDS: POLYETHYLENE GLYCOL 17 GM PKT PO SCH (11:07)
[2017-11-19] MEDS: ACETAMINOPHEN 325 MG TAB PO PRN ×2 (11:08→17:21)
--- NOTE | 2017-11-19 12:28 | Medical Nutrition Therapy ---
Nutrition Anthropometrics Height (Inches): 67.00 Height (Calculated Centimeters: 170.664392 Weight (Pounds): 142 Weight (Calculated Kilograms): 64.410 BMI: 22.5 Sherman Nutrition Score: Very Poor Sherman Nutrition Risk Score: 17 Dietary Referral Nutrition Risk Factors: Nutrition Risk Comment: Nutritional Diagnosis Nutritional Risk Acuity 1: TPN/PPN, GI Obstruction (SBO) Nutritional Risk Acuity 3: Colostomy Past Medical History: fecal incontinence, severe manic bipolar 1 disorder with psychotic behavior, psychogenic polydipsia, hyponatremia, OCD, rectal cancer, SBO, fatigue, weakness, hyperlipidemia, pneumonia, hx colon cancer, pevlic fluid collection Nutritional Acuity: 1-High Nutrition Diagnosis: Inadequate Food Intake Nutrition Etiology: Physiological Causes Nutrition Problem/Etiology/Sym: Inadequate oral intake related to physiological causes as evidence by nutrition support from TPN. Energy Requirement: 2515 (Miffliin-St.Jeor X 1.3SF) Protein Requirement: 86 (1.3gm/kg) Fluid Requirement: 2000 (30ml/kg) Diet Type: TPN/PPN Nutrition Intervention: Nutrition support (TPN ) Additional Diet Restrictions: DIETARY TO PROVIDE NO MORE THAN 240ML/MEAL Nutritional Support Current Enteral / Parental: TPN Rate: 100 mL/hr Clinimex 5%AA + 20% Dex. + 20% lipid / 12 hrs Current Duration: 24 Current Calories: 2112 Current Protein: 100 Current Lipids Calories: 500 Total Current Calories: 2612 Nutrition Monitoring & Eval RD Patient Assessment Time: [address] Assessment Type: RD Re-Assessment Patient Nutrition Acuity: 1-High Follow Up Date: Nov 14, 2017 Nutritional Comment: 10/05 Pt admitted for SBO and pneumonia. Pt is experiencing N/V, fever and abdominal pain. Pt is on NPO diet with meds only. Pt has a hx of colon cancer. Pt had a colostomy placed (09/10). Pt mother states the his bowel movements have in his bag have been more bulky. She states that he eats reasonably well. However, in doctor's note he had stated if pt does not eat within the next 5-6 days a PICC line and TPN would be placed. Mother agreed to this plan. Pt WBC was elevated and has reach WNR. Pt is on antibiotics for pneumonia. Pt has pelvic fluid collection and at risk for sepsis. Pt has low Na (130) and low H/H. Continue to monitor pt progress, labs and diet advancement. -MT 10/07 Pt continues on NPO diet, he is now on day three. Pt states that he wants water. Pt still has evidence of SBO and fluid collection. In the doctor's note it states pt is getting to the point where we will need to consider PICC line and starting TPN. Pt may benefit from 1800 ml TPN at 75ml/hr providing 1836 kcal ad 76g protein. This will meet 94% of the pt energy needs and 97% protein. Pt has low alb (2.3), no other concern labs at this time. Will continue to monitor pt progress and TPN order. -MT 10/08 Pt 4th day NPO. Per Dr notes, pt will start TPN today. Alb has declined to 2. Recommend final TPN rate of 75 ml/hr plus lipids to meet 109% est kcal and 97% est protein needs. BK 10/10 Low H/H, Alb 2.0, Low Ca+. TPN delayed until Wednesday (10/11), bowel sounds now present. Follow clinical progression. -DRT 10/12 Continues to have low H/H, low WBC, Na (127), alb (2.1) and elevated K+ (6.9). Pt started TPN (10/11). NG tube and perez removed. Pt did swallowing eval. No concern at this time. Will continue to monitor pt progress and diet advancement. -MT 10/15 No complaints. Pt has mild fever. Pt is still weak and experiencing tremors in both LE. DAQUAN removed yesterday (10/14). Colostomy bag continues to have gas in it, however no BM. Per doctor note continue bowel rest and TPN while we await return of bowel function. Pt urinary retention and pneumonia have been resolved. Pt Na is low (133). Pt is receiving IV Na PRN. Will continue to monitor pt progress, labs and encourage intake.-MT 10/18 Pt continues on TPN until bowel function returns to normal. Per doctor note, will do a trial of Erythromycin for potential bowel dysmotility. Did two enemas, got some liquids in colostomy bag. However doctors note states GI has gotten worse. Pt is distended with N/V. Pt had a fever yesterday (101) with elevated WAC (11.1) and blood glucose ( 128). Pt has had a 5# wt loss since 10/12 (146#) to now (141). Will continue to monitor pt progress, labs and diet advancement. -MT 10/20 Wt is down 10# since admission. Alb 2.5 is improving. Pt cont on TPN. Reassessed nutritional needs with est higher kcal and protein needs. Recommend increase TPN to 2000 ml/24 hr plus 250ml lipids 12 hrs to meet 95% est kcal and 98% est protein needs. Cont to monitor. BK 10/23 Pt cont on TPN with hypoactivbe bowel sounds. TPN was increased to 2000ml/24 hr to meet 95% est kcal and 98% est protein needs. Alb at 2.3 slowly increaseing . Wt is up 2#. Will cont to monitor. BK 10/25 Pt cont on TPN with hypoactivbe bowel sounds and maryanne from stoma. TPN is meeting 95% est kcal and 98% est protein needs. Alb at 2.4 is slowly increaseing . Wt is within usual range. Will cont to monitor. BK 10/28 Pt cont on TPN however on10/24 pharmacy changed to a 15% dextrose, 5% protein solution which provides 1420 kcal + 500 from lipid for total kcal of 2020 and 100 gm protein. This meets 80% est kcal and 116% est protein needs. Pt has lost wt from 144# on 10/24 to 133# on 10/27 with some of the wt loss probalby r/t fluids. However recommend increase TPN to 3000ml/day to provide 2630 kcal to meet 105% est kcal and 174% est protein needs to avoid futher wt loss. Alb declined to 2.3 so additional protein would be helpful. Recommend cont TPN until oral intake can meet nutr needs. BK 10/29 TPN increased to 3L/day of Clinimex 09/07. TPN is now meeting 105% est kcal needs, 174% est protein needs. Wt is back up 4#. Cont down 19% from admit wt. Alb 2.3. Cont to monitor. BK 11/01 Pt continues on TPN 3L/day Clinimex 15. Pt. has hypoactive bowel sounds, no gas from stoma. Wt. is fluctuating between 133-135# over past 4 days. Alb. has increased to 2.6. May advance diet with Miralax pending KUB. On 10/30 pt. was asleep, but talked with mother - will educate on high kcal/protein diet once off TPN. Will continue to monitor. RB 11/04 Diet advanced to clear liquids with TPN 3L/day Clinimex /15 to meet needs. Pt. seems to be tolerating well - ate 25% of clear tray at breakfast on 11/03. Flatus present and improving KUB function. Alb. now at 2.8, continues to trend upward. Wt. also fluctuating btw. 132-139# over the past week, now at 138#. On water restriction per note due to psychogenic polydipsia. BUN running slightly high (22) on 11/01 and 11/03 but WNL previously. Sodium levels slightly low at 134, avg. 132-136. Will continue to monitor progress, labs and diet advancement. RB 11/05 Diet advanced to med liquid/GI soft. No intake reported at this time. Nursing providing foods. Wt up slightly 10 139# but within the range he has been fluctuating. Pt cont on TPN which is meeting nutritional needs. Will cont to monitor. BK 11/07 Was informed by pharmacy that they are on the last bottle of Cinimex 15% dextrose, 5% AA. They will be able to stock and cont to keep on hand Cinimex 20% dextrose, 5% AA. Recommend change to that formula at a rate of 100ml/hr plus lipids to provide 2612 kcal, 100g protein to meet 104% est kcal and 120% est protein needs. Dr Calvillo was called and informed of the unaviabilty of the previous TPN solution and the recommended change. BK 11/08 TPN was changed to recommended rate with Clinimex 5% AA / 20% Dex at 100 mL/hr. This provides 104% est kcal and 120% est protein needs. Pt. has distended hypoactive bowel - no improvement in KUB per DrAntonina note. Blood glucose 104 today. Wt continues to trend upward; he is at 64.4kg. Will monitor wt., labs and TPN. - RB 11/11 Pt continues on TPN Clinimex 5%AA/ 20% Dex. Wt stable at 64.4kg. Per Dr note, KUB seems to be improving a bit. Olazipine script reduced to 5mg now to see if GI motility improves. Small stool in bag, no gas present, stoma pink. Hgb/Hct still low, Na 133, BUN 22. Will continue to monitor bowel function, labs, TPN and wt. - AHMET DUARTE Nov 11, 2017 13:02
--- NOTE | 2017-11-19 13:10 | Medical Nutrition Therapy ---
Physical Findings Physical Appearance: WNR 22.5 Skin Appearance Skin Appearance: Edema Edema Location Modifier: Both Edema Location: Ankle Type of Edema: Degree of Edema: Gastrointestinal Symptoms GI Symtoms: Change in Bowel Pattern Tube Present: NG Bowel Sounds: Recent Bowel Pattern: Stool Characteristics: Brown, Soft Nutritional Diagnosis Nutritional Risk Acuity 1: TPN/PPN, GI Obstruction (SBO) Nutritional Risk Acuity 3: Colostomy Past Medical History: fecal incontinence, severe manic bipolar 1 disorder with psychotic behavior, psychogenic polydipsia, hyponatremia, OCD, rectal cancer, SBO, fatigue, weakness, hyperlipidemia, pneumonia, hx colon cancer, pevlic fluid collection Nutritional Acuity: 1-High Nutrition Diagnosis: Inadequate Food Intake Nutrition Etiology: Physiological Causes Nutrition Problem/Etiology/Sym: Inadequate oral intake related to physiological causes as evidence by nutrition support from TPN. Energy Requirement: 2515 (Miffliin-St.Jeor X 1.3SF) Protein Requirement: 86 (1.3gm/kg) Fluid Requirement: 1500 (fluid restrict. <1.5L) Diet Type: Fluid Restricted (<1.5L/day per orders - Nursing to provide all fluids), Medical Liquid/GI soft, TPN/PPN Nutrition Intervention: Encourage intake, Nutrition support (TPN ), Incr diet as tolerated Additional Diet Restrictions: NURSING TO PROVIDE ALL FLUIDS Nutritional Support Current Enteral / Parental: TPN Rate: 75 mL/hr Clinimex 5%AA + 20% Dex. + 250ml lipid Current Duration: 24 Current Calories: 1584 Current Protein: 90 Current Lipids Calories: 500 Total Current Calories: 2084 Nutrition Monitoring & Eval Nutrition Goals: Eat 75-100% Meal, Fluid Restrictions (<1.5 L/day) RD Patient Assessment Time: [address] Assessment Type: RD Re-Assessment Patient Nutrition Acuity: 1-High Follow Up Date: Nov 22, 2017 Nutritional Comment: 10/05 Pt admitted for SBO and pneumonia. Pt is experiencing N/V, fever and abdominal pain. Pt is on NPO diet with meds only. Pt has a hx of colon cancer. Pt had a colostomy placed (09/10). Pt mother states the his bowel movements have in his bag have been more bulky. She states that he eats reasonably well. However, in doctor's note he had stated if pt does not eat within the next 5-6 days a PICC line and TPN would be placed. Mother agreed to this plan. Pt WBC was elevated and has reach WNR. Pt is on antibiotics for pneumonia. Pt has pelvic fluid collection and at risk for sepsis. Pt has low Na (130) and low H/H. Continue to monitor pt progress, labs and diet advancement. -MT 10/07 Pt continues on NPO diet, he is now on day three. Pt states that he wants water. Pt still has evidence of SBO and fluid collection. In the doctor's note it states pt is getting to the point where we will need to consider PICC line and starting TPN. Pt may benefit from 1800 ml TPN at 75ml/hr providing 1836 kcal ad 76g protein. This will meet 94% of the pt energy needs and 97% protein. Pt has low alb (2.3), no other concern labs at this time. Will continue to monitor pt progress and TPN order. -MT 10/08 Pt 4th day NPO. Per Dr notes, pt will start TPN today. Alb has declined to 2. Recommend final TPN rate of 75 ml/hr plus lipids to meet 109% est kcal and 97% est protein needs. BK 10/10 Low H/H, Alb 2.0, Low Ca+. TPN delayed until Wednesday (10/11), bowel sounds now present. Follow clinical progression. -DRT 10/12 Continues to have low H/H, low WBC, Na (127), alb (2.1) and elevated K+ (6.9). Pt started TPN (10/11). NG tube and perez removed. Pt did swallowing eval. No concern at this time. Will continue to monitor pt progress and diet advancement. -MT 10/15 No complaints. Pt has mild fever. Pt is still weak and experiencing tremors in both LE. DAQUAN removed yesterday (10/14). Colostomy bag continues to have gas in it, however no BM. Per doctor note continue bowel rest and TPN while we await return of bowel function. Pt urinary retention and pneumonia have been resolved. Pt Na is low (133). Pt is receiving IV Na PRN. Will continue to monitor pt progress, labs and encourage intake.-MT 10/18 Pt continues on TPN until bowel function returns to normal. Per doctor note, will do a trial of Erythromycin for potential bowel dysmotility. Did two enemas, got some liquids in colostomy bag. However doctors note states GI has gotten worse. Pt is distended with N/V. Pt had a fever yesterday (101) with elevated WAC (11.1) and blood glucose ( 128). Pt has had a 5# wt loss since 10/12 (146#) to now (141). Will continue to monitor pt progress, labs and diet advancement. -MT 10/20 Wt is down 10# since admission. Alb 2.5 is improving. Pt cont on TPN. Reassessed nutritional needs with est higher kcal and protein needs. Recommend increase TPN to 2000 ml/24 hr plus 250ml lipids 12 hrs to meet 95% est kcal and 98% est protein needs. Cont to monitor. BK 10/23 Pt cont on TPN with hypoactivbe bowel sounds. TPN was increased to 2000ml/24 hr to meet 95% est kcal and 98% est protein needs. Alb at 2.3 slowly increaseing . Wt is up 2#. Will cont to monitor. BK 10/25 Pt cont on TPN with hypoactivbe bowel sounds and maryanne from stoma. TPN is meeting 95% est kcal and 98% est protein needs. Alb at 2.4 is slowly increaseing . Wt is within usual range. Will cont to monitor. BK 10/28 Pt cont on TPN however on10/24 pharmacy changed to a 15% dextrose, 5% protein solution which provides 1420 kcal + 500 from lipid for total kcal of 2020 and 100 gm protein. This meets 80% est kcal and 116% est protein needs. Pt has lost wt from 144# on 10/24 to 133# on 10/27 with some of the wt loss probalby r/t fluids. However recommend increase TPN to 3000ml/day to provide 2630 kcal to meet 105% est kcal and 174% est protein needs to avoid futher wt loss. Alb declined to 2.3 so additional protein would be helpful. Recommend cont TPN until oral intake can meet nutr needs. BK 10/29 TPN increased to 3L/day of Clinimex 09/07. TPN is now meeting 105% est kcal needs, 174% est protein needs. Wt is back up 4#. Cont down 19% from admit wt. Alb 2.3. Cont to monitor. BK 11/01 Pt continues on TPN 3L/day Clinimex 09/07. Pt. has hypoactive bowel sounds, no gas from stoma. Wt. is fluctuating between 133-135# over past 4 days. Alb. has increased to 2.6. May advance diet with Miralax pending KUB. On 10/30 pt. was asleep, but talked with mother - will educate on high kcal/protein diet once off TPN. Will continue to monitor. RB 11/04 Diet advanced to clear liquids with TPN 3L/day Clinimex 09/07 to meet needs. Pt. seems to be tolerating well - ate 25% of clear tray at breakfast on 11/03. Flatus present and improving KUB function. Alb. now at 2.8, continues to trend upward. Wt. also fluctuating btw. 132-139# over the past week, now at 138#. On water restriction per Dr. barreto due to psychogenic polydipsia. BUN running slightly high (22) on 11/01 and 11/03 but WNL previously. Sodium levels slightly low at 134, avg. 132-136. Will continue to monitor progress, labs and diet advancement. RB 11/05 Diet advanced to med liquid/GI soft. No intake reported at this time. Nursing providing foods. Wt up slightly 10 139# but within the range he has been fluctuating. Pt cont on TPN which is meeting nutritional needs. Will cont to monitor. BK 11/07 Was informed by pharmacy that they are on the last bottle of Cinimex 15% dextrose, 5% AA. They will be able to stock and cont to keep on hand Cinimex 20% dextrose, 5% AA. Recommend change to that formula at a rate of 100ml/hr plus lipids to provide 2612 kcal, 100g protein to meet 104% est kcal and 120% est protein needs. Dr Calvillo was called and informed of the unaviabilty of the previous TPN solution and the recommended change. BK 11/08 TPN was changed to recommended rate with Clinimex 5% AA / 20% Dex at 100 mL/hr. This provides 104% est kcal and 120% est protein needs. Pt. has distended hypoactive bowel - no improvement in KUB per note. Blood glucose 104 today. Wt continues to trend upward; he is at 64.4kg. Will monitor wt., labs and TPN. - LANDON 11/11 Pt continues on TPN Clinimex 5%AA/ 20% Dex. Wt stable at 64.4kg. Per Dr note, KUB seems to be improving a bit. Olazipine script reduced to 5mg now to see if GI motility improves. Small stool in bag, no gas present, stoma pink. Hgb/Hct still low, Na 133, BUN 22. Will continue to monitor bowel function, labs, TPN and wt. - LANDON 11/19 Pt. TPN reduced to 75ml/hr Clinimix E 5-20% w/ 250 ml lipids in conjunction w/ GI soft diet. TPN is now providing 83% kcal and 96% protein needs. Dr notes state will plan to increase diet to regular by tomorrow if pt cont. to tolerate PO intake. Pt still on fluid restriction of 1500ml/day. H/H still low, Na+ 127 trending down, K+ 5.1 a bit high today. Alb cont. to trend upward to 3.1, highest since admit. Pt doing well - will cont to monitor labs, TPN, diet advancement and encourage intake. -AHMET DUARTE Nov 19, 2017 12:52
[2017-11-19 15:13] VITALS: BP 120/71
[2017-11-19] MEDS ORDERED: 1: INS HUM REG* 100 U/ML(ER ONLY) 10 UNIT, MULTIVITAMINS(*) 10 ML VIAL 10 ML, TRACE META IV SCH (18:00)
[2017-11-19] MEDS: FAT EMULSION 20% 250 ML BAG 250 ML IVPB SCH (18:05)
[2017-11-20] MEDS: ACETAMINOPHEN 325 MG TAB PO PRN ×4 (00:04→19:25)
[2017-11-20 00:14] VITALS: BP 129/81
[2017-11-20] MEDS: IBUPROFEN 200 MG TAB PO PRN ×5 (02:17→21:30)
[2017-11-20] MEDS ORDERED: 1: INS HUM REG* 100 U/ML(ER ONLY) 10 UNIT, MULTIVITAMINS(*) 10 ML VIAL 10 ML, TRACE META IV SCH ×2 (05:30)
[2017-11-20 07:44] VITALS: BP 114/74
--- NOTE | 2017-11-20 09:08 | General Surgery Progress Note ---
Subjective Progress Notes Subjective "I ate eggs for breakfast today." He denies any complaints. Physical Exam Vital Signs Date Time Temp Pulse Resp B/P (MAP) Pulse Ox O2 Delivery O2 Flow Rate FiO2 11/20/17 07:44 98.2 96 16 114/74 (87) 91 Nasal Cannula 1.0 Intake and Output 11/21/17 07:00 Intake Total 120 ml Balance 120 ml Intake Oral 120 ml General Appearance: Awake, No Acute Distress, Afebrile Cardiovascular: Regular Rate and Rhythm Respiratory: No Respiratory Distress, Clear to Auscultation GI: Soft and Non-Tender Extremities: Soft and Non Tender Result Diagram: 11/19/17 0522 11/20/17 0529 Assessment and Plan Problems: (1) Small bowel obstruction due to postoperative adhesions Status: Acute Assessment & Plan: 10/04/17: Admit, nothing by mouth, IV fluids, bowel rest, conservative management start with. We'll follow his x-rays and NG tube output as well as stoma output. We will hold off on any sort of surgery until he is about 6 weeks out from his initial resection surgery. Hopefully he will respond to conservative management. His last meal was yesterday and his mother reports that he has been eating reasonably well. If he is unable to eat and about 5 or 6 days then we will need to consider a PICC line and starting TPN. I have explained this plan to the patient's mother and she seems to understand and seems to be agreeable with this plan. 10/05/17: Continued small bowel obstruction clinically and radiographically based on his KUB this morning. Will continue conservative management with NG tube decompression, bowel rest, and IV fluids. Continue IV antibiotics for pneumonia. If he fails to get better in the next several days may consider diagnostic laparoscopy with drainage of the pelvic fluid collection and inspection of his small bowel. We'll let his small bowel decompress further before contemplating this. 10/06/17: Will give po gastrograffin and will get CT this afternoon. KUB a little better but not much function from stoma. May need to consider exploratory laparoscopy tomorrow if not getting better. Stoma with white patches and area of necrosis on inferior portion only. Possibly the stoma appliance was cut too tight and pressing on the stoma, will need to follow this. Will add antifungal coverage in case white patches represent fungal infection of stoma although I don't recall every having seen this. Pt still with intermittent low grade fevers on broad spectrum antibiotic coverage so antifungal coverage will broaden that coverage as well. O/W, CCM. 10/07/17: Not much change. No stoma output. KUB has not yet been done this morning. Labs OK. Still with low grade fevers. WBC normal, neutrophil count coming down. CT abd/pelvis yesterday with decreased small bowel distension but still with evidence of SBO, fluid collection in unchanged, no free fluid or air. 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 Will await KUB. Getting to the point where we will need to consider PICC line and starting TPN. May discuss laparoscopic exploration later today; will discuss with patient's mother. 10/08/17: 4 weeks s/p robotic LAR, POD#1 s/p ex-laparoscopy with RILEY and drainage of presacral fluid. Doing well. WBC normal. Will follow fevers/ vitals, etc. Place PICC today to start TPN. Await return of bowel function. 10/09/17: POD2 ex laparoscopy. Awaiting return of bowel function. +BS and minimal NGT output so may be soon. Plan to start TPN on Wednesday. Patient needs to ambulate. Continue abx for pneumonia. Will try to remove perze catheter tomorrow. 10/10/17: POD3 ex laparoscopy. Still awaiting return of bowel function. Clamp NGT till noon and remove if low residuals and in good position on KUB. continue abx, continue perez. dropped MIVF to 75cc/hr. Patient is not participating with therapy. Good bowel sounds so started bowel reg today, senna s/miralax. 10/11/17: POD4 ex laparoscopy. Awaiting bowel function. NGT removed yesterday. Plan PICC/TPN today. Will need swallow eval before taking orals, could not tolerate bowel reg yesterday. May attempt to remove perez today. Ordered labs. 10/12/17: POD#5. Stable. Started TPN yesterday. KUB with gas throughout colon , I suspect we'll start seeing gas in stoma bag in next day or two. Still some dilated small bowel but colon looks better on KUB. Perez out, patient seems to be urinating without problems. CCM until bowel function returns. 10/13/17: POD#6. Doing well but still no evidence of bowel function. Continue bowel rest and TPN. Await return of bowel function. COntinue lovenox and PPI. CCM. 10/14/17: POD#7. Doing well. DAQUAN removed yesterday. KUB continues to improve with gas to distal colon but still no activity from stoma yet. Continue bowel rest and TPN while we await return of bowel function. Continue lovenox and PPI. 10/15/17: POD#8. Doing well but now with mild fevers and intermittent tachycardia. He has no pain and his abdominal exam is benign. Will get CXR and check UA. He's not on abx other than diflucan at this point. Continue bowel rest and TPN until bowel function returns. Continue lovenox, PPI. Hopeful for return of bowel function soon. 10/16/17: POD#9. Appears to be at his baseline. Ambulated with PT yesterday> 100 feet. Urinary incomplete emptying- started on Flomax 10/15. Stoma was irrigated with Fleets Enema by Dr Roque 10/15 with nothing more out than enema fluid. He has no pain and his abdominal exam is benign. 10/15/17 with T max 100.4- CXR was clear and UA was clear--both improved today. Off abx but remains on Diflucan for ronda appearance of the stoma noted earlier in hospitalization. Will do a trial of Erythromycin for potential bowel dysmotility (secondary to bipolar meds?) Continue bowel rest and TPN until bowel function returns. Continue Lovenox, PPI. 10/17/17: POD#10. Appears to be at his baseline. Ambulated with PT yesterday> 100 feet x 2; stronger. Urinary incomplete emptying- started on Flomax 10/15 and bladder scan was minimal for retained fluid. Started on po erythromycin for dysmotility. Stoma with large gas and small liquid out. Started on clear liquids today. He has no pain and his abdominal exam is benign. Off abx and diflucan now while undergoing trial of Erythromycin. Continue TPN until full bowel function/appetite returns. Continue Lovenox, PPI. 10/17/17 (Addendum @ 1220): Intermittent tachycardia. Peristomal hernia noted upon standing by nursing staff. This has been noted previously. No gas output or liquid output since 0600 this AM. Abdomen remains benign to my exam. Discussed care plan with Dr Roque and will try another enema today. Will continue erythromycin as a potential pro motility agent. 10/18/17: POD#11. Worsened from GI standpoint. Now with increased abdominal distension with N/V this morning. I stopped erythromycin and backed off on his diet. He had a fever this morning to 101F. Will obtain saucedo-cultures including cultures from his PICC line. Will get CXR, empirically start primaxin. May need to repeat abdominal CT. Will see how he does today and what cultures show , etc reveal. 10/19/17: POD#12. Doing better after Perez, NG tube placed and abx restarted. KUB c/w worsened ileus vs SBO. Fevers to over 101F yesterday, no fevers overnight, HR down this morning. Will repeat CT abd/pelvis today. Continue bowel rest, NG tube, TPN. No growth from cultures yet. 10/20/17: POD#13. Still without bowel function. CT c/w SBO with loop in pelvis and continued small bowel thickening in pelvis. Presacral fluid collection is small. Parastomal hernia but no obstruction. Pt's been afebrile now back on Primaxin. Continue bowel rest, NG tube decompression, TPN. No growth in cultures. Perez out last evening. Will see how he's able to void bladder. Will get SBFT with water-soluble contrast today. 10/21/17: POD#14. Possibly doing better? Having some stool output in bag. NG not putting out too much. Will start NG clamp trials. SBFT yesterday revealed no obstruction but c/w adynamic ileus. Now starting to see gastrograffin in stoma bag. Will try erythromycin as promotility agent. 10/22/17: POD#15. Now with stoma output after gastrograffin SBFT but still with dilated loops of small bowel on KUB. Continue NG clamp trials today and follow KUB. Started erythromycin yesterday, will see how effective this is. Continue bowel rest, TPN, etc until GI function clearly returning to normal. 10/23/17: POD#16. Doing well but KUB still with unchanging dilated loops of small bowel. NG not putting much out and pt tolerating clamp trials so will d/ c NG but will continue bowel rest and TPN. Continue erythromycin. 10/24/17: POD#17. Doing well. NG removed yesterday. Pt doing well. Still with ileus as no gas in bag. Will recheck KUB tomorrow morning. Continue bowel rest. May need to discuss Kg with psychiatry to discuss his medication' s role in prolonged ileus. Continue TPN. 10/25/17: POD#18. Doing well. Now having some gas from stoma. KUB looks a little better this morning with decreased dilated loops of small bowel. Hospital is out of Erythromycin IV and it is on backorder. Will change to PO erythromycin for promotility effects. Will o/w continue bowel rest until more signs of bowel activity since the last time she showed signs of gas and stool from his stoma when he was advanced to clears he became severely distended and we needed to replace his NG tube and resume rx for ileus vs SBO. Continue TPN until tolerating regular diet. 10/26/17: POD#19. Doing well. Increasing gas in stoma bag. Still with dilated loops of small bowel on KUB. Will hold of on diet for now until KUB markedly better and stoma bag consistently with a lot of gas in it (it is intermittent currently) given his previous intolerance to clear diet a couple of weeks ago when he acutely redeveloped his ileus. Continue bowel rest and TPN, continue PO erythromycin for promotility. 10/27/17: POD#20. Doing well. Bowel function improving. Will get KUB tomorrow morning and if small bowel dilation resolved then will slowly advance diet. Continue erythromycin, bowel rest, TPN today. 10/28/17: POD#21. Doing well. No gas in bag this morning. KUB with improving but still dilated loops of small bowel. Will see how his stoma is functioning today. Will change stoma bag to a new one to get a sense of stool output today. Continue bowel rest, TPN, erythromycin today. If he's putting gas/ stool out as today progresses, may try clear diet later today. 10/29/17: POD#22. No stoma activity once again. No gas or stool in bag for last 36-48hrs. Will check KUB this morning. O/W, continue bowel rest, TPN, erythromycin. 10/30/17: POD#23. Still no activity from the stoma. Patient is not in distress and does not have a suspicious abdominal exam. Continue to monitor, continue TPN and NPO. Ambulate. 10/31/17: POD#24: No evidence of nausea, distension or pain in his abdomen. Some slight amount more stool but not a significant amount. Continue TPN and watchful waiting. Patient experienced a non injury fall yesterday with no obvious sequelae. 11/01/17: POD#25. Doing well. Exam benign. Will recheck KUB this morning but still not much stoma activity. Continue TPN. If KUB looks good then may start slowly advancing diet and add bowel regimen such as miralax. 11/02/17: POD#26. Doing well, tolerating small amounts of liquid PO intake and Miralax. Abdominal exam is benign. Continue TPN. Will recheck labs and KUB tomorrow. 11/03/17: POD#27. Doing well. Tolerating small amounts of liquid PO and Miralax. KUB with mildly increased small bowel dilation but clinically he seems to be doing well. Will recheck KUB tomorrow and if it's not getting progressively worse and Kg isn't clinically worsening then will consider SLOWLY advancing his diet. Continue TPN in the mean time. Will convert him to depakote PO this morning. 11/04/17: POD#28. Doing well. Showing signs of improving bowel function and KUB with decreased SB dilation. Doing well on Miralax and colace. Will advance to full clear liquid diet without volume restrictions except will need to restrict his water intake due to his h/o psychogenic polydipsia. If he tolerates this today then will try full liquid diet tomorrow. Will continue TPN until tolerating regular diet. 11/05/17: POD#29. Doing well. Bowel function seems to be improving. Will start full liquid diet today. Continue fluid restriction. Continue Miralax and colace. Continue TPN until tolerating regular diet. 11/06/17: POD#30. Doing well. Had about 50cc out from colostomy. Made NPO yesterday, continue TPN. 11/07/17: POD#31: No changes. will check KUB to assess distention of bowels. If improvement may start clear liquid diet. 11/08/17: POD#32. No improvement. Will ask psychiatry to evaluate and consider medication adjustment in psych meds to improve bowel function. 11/09/17: POD#33. No improvement, continued ileus. Spoke with Dr. Pedraza with psychiatry yesterday and he recommended coming down on olanzapine to 10mg for 2 days then 5mg for 2 days then stop. Will replace NG tube if pt continues with emesis. Will stop PO meds. Continue TPN. 11/10/17: POD#34. No signs of improved bowel function this morning. Will continue to come down on olanzapine and follow bowel function. Continue bowel rest and TPN. 11/11/17: POD#35. KUB a little better but clinically not improving yet. Continue to come down on olanzapine. Will get 2nd day of 5mg tonight and then will stop it and monitor bowel function. Continue bowel rest and TPN. 11/12/17: POD#36. KUB with continued improvement. He's developed a rattle in his chest and a productive cough and CXR c/w PNA. Will ask Hospitalists to consult to direct abx coverage. Will stop olanzapine today and monitor bowel function. Continue bowel rest and TPN until bowel function clearly returns. 11/13/17: Little bit more activity from his stoma today. His abdomen is nice and soft without any tenderness. He has been off the Zyprexa for 24 hours. We' ll continue bowel rest and TPN. We'll get a KUB tomorrow and if it is looking good, essentially normal, then we'll consider slowly restarting clears but we' ll start with a bowel regimen 1st. Hospitalists have evaluated the patient and do not think that he has a pneumonia. He certainly clinically looks better from a respiratory standpoint today. He is not having a productive cough, his white blood cell count is normal, and he is not having any fevers, and he has not been having increased oxygen requirements. 11/14/17: KUB improving. Abdomen is soft and nontender. Will start colace and miralax today and if he does well with this then tomorrow will try clear diet again. O/W CCM. 11/15/17: KUB shows continued improvement. Abdomen is soft and nontender. Will start small volume clear diet in addition to the colace and miralax that I started yesterday. Will limit him to no more than 30ml/4hours. O/W CCM. 11/16/17: KUB about the same. Has really only had apple juice. Will encourage jell-o, broth, etc but will keep limit of 30mL/4 hours. Continue colace and miralax. Continue lovenox, PPI, etc. 11/17/17: KUB slightly improved. Stoma with increased output, both gas and stool. Will advance to unrestricted clear diet but will limit fluids to 1500mL/ 24 hours due to psychogenic polydipsia. Will insert perez and see how much urine is in his bladder and will see if his urinary symptoms improve with bladder decompression. Will also send UA. Continue colace and miralax. Continue lovenox, PPI, etc. K up to 5.1 this morning, will recheck tomorrow. 11/18/17: KUB improving. Stoma output is increasing. Will start introducing soft/full liquid diet items slowly and see how he tolerates this. Remove perez this morning. There was only 55mL in bladder with perez insertion so he's not retaining urine, suspect urge to constantly void his bladder is psychogenic. UA neg for infection. Continue colace and miralax. Continue TPN until consistently tolerating regular diet. Continue lovenox, PPI, etc. 11/19/17: Doing well. Tolerating full liquid diet but he hasn't had much of it yet. Not much of a motivation to eat. Will decrease TPN and push the diet. If he does well with full liquids then will plan on regular diet tomorrow. Continue colace, miralax, lovenox, PPI. Will conver meds to PO. 11/20/17: Continues to improve. Tolerating increase in his diet. Stoma functioning. Remains afebrile. Will DC TPN after this current bag. Disposition planning (2) Pneumonia Status: Resolved Assessment & Plan: Hospitalist consultation to start appropriate empiric abx coverage for HAP. (3) Urinary retention with incomplete bladder emptying Status: Chronic Assessment & Plan: Started flomax, will follow response. (4) Bipolar disorder, unspecified Status: Chronic Assessment & Plan: On Home medications (5) ANEMIA IN OTHER CHRONIC DISEASES CLASSIFIED ELSEWHERE Status: Chronic Assessment & Plan: Anemia likely secondary to chronic disease; Monitor (6) Hyponatremia Status: Chronic Assessment & Plan: 10/16/17: Appears to be euvolemic; Can adjust IV Fluids; Monitor 10/17/17: Sodium 132; on fluid restriction. IVF changed to NS from 1/2NS. Monitor (7) Hypoalbuminemia due to protein-calorie malnutrition Status: Chronic Assessment & Plan: Albumin 2.0; On TPN; Remains NPO due to ileus or bowel dysmotility (8) Hypoxia Status: Resolved Assessment & Plan: Remains on 2 liters Nasal Canula; Encourage ambulation/ assisted; Attempt O2 weaning (9) Peristomal hernia Status: Chronic Assessment & Plan: Present on admission exam and CT scan. Does not appear to be the source of his SBO. Easily reducible. Monitor during this acute process but may need repair remotely. Time Spent: < 30 min Exam Sepsis Risk: No Definite Risk Problem Qualifiers (1) Pneumonia: Pneumonia type: due to unspecified organism Laterality: unspecified laterality Lung location: unspecified part of lung Qualified Codes: J18.9 - Pneumonia, unspecified organism ELIAZAR TENORIO MD Nov 20, 2017 09:08
[2017-11-20] MEDS: PANTOPRAZOLE SOD 40 MG TABEC PO SCH (09:48)
[2017-11-20] MEDS: DIVALPROEX SOD ER 500 MG TABSR PO SCH ×2 (09:48→21:30)
[2017-11-20] MEDS: POLYETHYLENE GLYCOL 17 GM PKT PO SCH (09:48)
[2017-11-20] MEDS: DOCUSATE SODIUM 100 MG CAP PO SCH ×2 (09:48→21:30)
[2017-11-20] MEDS: ENOXAPARIN 40 MG/0.4ML SYR SC SCH (09:49)
[2017-11-20] MEDS: SODIUM CHLORIDE 1 GR TAB PO SCH ×2 (12:33→17:15)
[2017-11-20 14:27] VITALS: BP 115/84
[2017-11-20 23:05] VITALS: BP 141/69
[2017-11-20 23:10] VITALS: BP 99/69
[2017-11-21] MEDS: ACETAMINOPHEN 325 MG TAB PO PRN ×4 (02:23→23:23)
[2017-11-21] MEDS: IBUPROFEN 200 MG TAB PO PRN ×4 (05:00→19:53)
[2017-11-21 05:45] LABS: PLATELET COUNT, AUTOMATED 614 K/uL (150-450)
[2017-11-21 07:29] VITALS: BP 124/74
[2017-11-21] MEDS: POLYETHYLENE GLYCOL 17 GM PKT PO SCH (08:36)
[2017-11-21] MEDS: SODIUM CHLORIDE 1 GR TAB PO SCH ×3 (08:36→17:38)
[2017-11-21] MEDS: PANTOPRAZOLE SOD 40 MG TABEC PO SCH (08:36)
[2017-11-21] MEDS: DOCUSATE SODIUM 100 MG CAP PO SCH ×2 (08:36→20:39)
[2017-11-21] MEDS: ENOXAPARIN 40 MG/0.4ML SYR SC SCH (08:37)
--- NOTE | 2017-11-21 09:46 | General Surgery Progress Note ---
Subjective Progress Notes Subjective "I didnt sleep well". No nausea or vomiting, tolerating diet. Physical Exam Vital Signs Date Time Temp Pulse Resp B/P (MAP) Pulse Ox O2 Delivery O2 Flow Rate FiO2 11/21/17 07:29 98.3 83 19 124/74 (91) 94 Nasal Cannula 1.0 Intake and Output 11/22/17 07:00 Intake Total 0 ml Output Total 100 ml Balance -100 ml Intake Oral 0 ml Output Urine Total 100 ml # Voids 1 General Appearance: Alert, Awake, No Acute Distress, Afebrile ENT: Moist Mucous Membranes Cardiovascular: Regular Rate and Rhythm Respiratory: No Respiratory Distress, Clear to Auscultation GI: Soft and Non-Tender Psych: Alert & Oriented X3 Result Diagram: 11/21/1751111/21/17 05 Assessment and Plan Problems: (1) Small bowel obstruction due to postoperative adhesions Status: Acute Assessment & Plan: 10/04/17: Admit, nothing by mouth, IV fluids, bowel rest, conservative management start with. We'll follow his x-rays and NG tube output as well as stoma output. We will hold off on any sort of surgery until he is about 6 weeks out from his initial resection surgery. Hopefully he will respond to conservative management. His last meal was yesterday and his mother reports that he has been eating reasonably well. If he is unable to eat and about 5 or 6 days then we will need to consider a PICC line and starting TPN. I have explained this plan to the patient's mother and she seems to understand and seems to be agreeable with this plan. 10/05/17: Continued small bowel obstruction clinically and radiographically based on his KUB this morning. Will continue conservative management with NG tube decompression, bowel rest, and IV fluids. Continue IV antibiotics for pneumonia. If he fails to get better in the next several days may consider diagnostic laparoscopy with drainage of the pelvic fluid collection and inspection of his small bowel. We'll let his small bowel decompress further before contemplating this. 10/06/17: Will give po gastrograffin and will get CT this afternoon. KUB a little better but not much function from stoma. May need to consider exploratory laparoscopy tomorrow if not getting better. Stoma with white patches and area of necrosis on inferior portion only. Possibly the stoma appliance was cut too tight and pressing on the stoma, will need to follow this. Will add antifungal coverage in case white patches represent fungal infection of stoma although I don't recall every having seen this. Pt still with intermittent low grade fevers on broad spectrum antibiotic coverage so antifungal coverage will broaden that coverage as well. O/W, CCM. 10/07/17: Not much change. No stoma output. KUB has not yet been done this morning. Labs OK. Still with low grade fevers. WBC normal, neutrophil count coming down. CT abd/pelvis yesterday with decreased small bowel distension but still with evidence of SBO, fluid collection in unchanged, no free fluid or air. 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 Will await KUB. Getting to the point where we will need to consider PICC line and starting TPN. May discuss laparoscopic exploration later today; will discuss with patient's mother. 10/08/17: 4 weeks s/p robotic LAR, POD#1 s/p ex-laparoscopy with RILEY and drainage of presacral fluid. Doing well. WBC normal. Will follow fevers/ vitals, etc. Place PICC today to start TPN. Await return of bowel function. 10/09/17: POD2 ex laparoscopy. Awaiting return of bowel function. +BS and minimal NGT output so may be soon. Plan to start TPN on Wednesday. Patient needs to ambulate. Continue abx for pneumonia. Will try to remove perez catheter tomorrow. 10/10/17: POD3 ex laparoscopy. Still awaiting return of bowel function. Clamp NGT till noon and remove if low residuals and in good position on KUB. continue abx, continue perez. dropped MIVF to 75cc/hr. Patient is not participating with therapy. Good bowel sounds so started bowel reg today, senna s/miralax. 10/11/17: POD4 ex laparoscopy. Awaiting bowel function. NGT removed yesterday. Plan PICC/TPN today. Will need swallow eval before taking orals, could not tolerate bowel reg yesterday. May attempt to remove perez today. Ordered labs. 10/12/17: POD#5. Stable. Started TPN yesterday. KUB with gas throughout colon , I suspect we'll start seeing gas in stoma bag in next day or two. Still some dilated small bowel but colon looks better on KUB. Perez out, patient seems to be urinating without problems. CCM until bowel function returns. 10/13/17: POD#6. Doing well but still no evidence of bowel function. Continue bowel rest and TPN. Await return of bowel function. COntinue lovenox and PPI. [facility]. 10/14/17: POD#7. Doing well. DAQUAN removed yesterday. KUB continues to improve with gas to distal colon but still no activity from stoma yet. Continue bowel rest and TPN while we await return of bowel function. Continue lovenox and PPI. 10/15/17: POD#8. Doing well but now with mild fevers and intermittent tachycardia. He has no pain and his abdominal exam is benign. Will get CXR and check UA. He's not on abx other than diflucan at this point. Continue bowel rest and TPN until bowel function returns. Continue lovenox, PPI. Hopeful for return of bowel function soon. 10/16/17: POD#9. Appears to be at his baseline. Ambulated with PT yesterday> 100 feet. Urinary incomplete emptying- started on Flomax 10/15. Stoma was irrigated with Fleets Enema by Dr Roque 10/15 with nothing more out than enema fluid. He has no pain and his abdominal exam is benign. 10/15/17 with T max 100.4- CXR was clear and UA was clear--both improved today. Off abx but remains on Diflucan for ronda appearance of the stoma noted earlier in hospitalization. Will do a trial of Erythromycin for potential bowel dysmotility (secondary to bipolar meds?) Continue bowel rest and TPN until bowel function returns. Continue Lovenox, PPI. 10/17/17: POD#10. Appears to be at his baseline. Ambulated with PT yesterday> 100 feet x 2; stronger. Urinary incomplete emptying- started on Flomax 10/15 and bladder scan was minimal for retained fluid. Started on po erythromycin for dysmotility. Stoma with large gas and small liquid out. Started on clear liquids today. He has no pain and his abdominal exam is benign. Off abx and diflucan now while undergoing trial of Erythromycin. Continue TPN until full bowel function/appetite returns. Continue Lovenox, PPI. 10/17/17 (Addendum @ 1220): Intermittent tachycardia. Peristomal hernia noted upon standing by nursing staff. This has been noted previously. No gas output or liquid output since 0600 this AM. Abdomen remains benign to my exam. Discussed care plan with Dr Roque and will try another enema today. Will continue erythromycin as a potential pro motility agent. 10/18/17: POD#11. Worsened from GI standpoint. Now with increased abdominal distension with N/V this morning. I stopped erythromycin and backed off on his diet. He had a fever this morning to 101F. Will obtain saucedo-cultures including cultures from his PICC line. Will get CXR, empirically start primaxin. May need to repeat abdominal CT. Will see how he does today and what cultures show , etc reveal. 10/19/17: POD#12. Doing better after Perez, NG tube placed and abx restarted. KUB c/w worsened ileus vs SBO. Fevers to over 101F yesterday, no fevers overnight, HR down this morning. Will repeat CT abd/pelvis today. Continue bowel rest, NG tube, TPN. No growth from cultures yet. 10/20/17: POD#13. Still without bowel function. CT c/w SBO with loop in pelvis and continued small bowel thickening in pelvis. Presacral fluid collection is small. Parastomal hernia but no obstruction. Pt's been afebrile now back on Primaxin. Continue bowel rest, NG tube decompression, TPN. No growth in cultures. Perez out last evening. Will see how he's able to void bladder. Will get SBFT with water-soluble contrast today. 10/21/17: POD#14. Possibly doing better? Having some stool output in bag. NG not putting out too much. Will start NG clamp trials. SBFT yesterday revealed no obstruction but c/w adynamic ileus. Now starting to see gastrograffin in stoma bag. Will try erythromycin as promotility agent. 10/22/17: POD#15. Now with stoma output after gastrograffin SBFT but still with dilated loops of small bowel on KUB. Continue NG clamp trials today and follow KUB. Started erythromycin yesterday, will see how effective this is. Continue bowel rest, TPN, etc until GI function clearly returning to normal. 10/23/17: POD#16. Doing well but KUB still with unchanging dilated loops of small bowel. NG not putting much out and pt tolerating clamp trials so will d/ c NG but will continue bowel rest and TPN. Continue erythromycin. 10/24/17: POD#17. Doing well. NG removed yesterday. Pt doing well. Still with ileus as no gas in bag. Will recheck KUB tomorrow morning. Continue bowel rest. May need to discuss Kg with psychiatry to discuss his medication' s role in prolonged ileus. Continue TPN. 10/25/17: POD#18. Doing well. Now having some gas from stoma. KUB looks a little better this morning with decreased dilated loops of small bowel. Hospital is out of Erythromycin IV and it is on backorder. Will change to PO erythromycin for promotility effects. Will o/w continue bowel rest until more signs of bowel activity since the last time she showed signs of gas and stool from his stoma when he was advanced to clears he became severely distended and we needed to replace his NG tube and resume rx for ileus vs SBO. Continue TPN until tolerating regular diet. 10/26/17: POD#19. Doing well. Increasing gas in stoma bag. Still with dilated loops of small bowel on KUB. Will hold of on diet for now until KUB markedly better and stoma bag consistently with a lot of gas in it (it is intermittent currently) given his previous intolerance to clear diet a couple of weeks ago when he acutely redeveloped his ileus. Continue bowel rest and TPN, continue PO erythromycin for promotility. 10/27/17: POD#20. Doing well. Bowel function improving. Will get KUB tomorrow morning and if small bowel dilation resolved then will slowly advance diet. Continue erythromycin, bowel rest, TPN today. 10/28/17: POD#21. Doing well. No gas in bag this morning. KUB with improving but still dilated loops of small bowel. Will see how his stoma is functioning today. Will change stoma bag to a new one to get a sense of stool output today. Continue bowel rest, TPN, erythromycin today. If he's putting gas/ stool out as today progresses, may try clear diet later today. 10/29/17: POD#22. No stoma activity once again. No gas or stool in bag for last 36-48hrs. Will check KUB this morning. O/W, continue bowel rest, TPN, erythromycin. 10/30/17: POD#23. Still no activity from the stoma. Patient is not in distress and does not have a suspicious abdominal exam. Continue to monitor, continue TPN and NPO. Ambulate. 10/31/17: POD#24: No evidence of nausea, distension or pain in his abdomen. Some slight amount more stool but not a significant amount. Continue TPN and watchful waiting. Patient experienced a non injury fall yesterday with no obvious sequelae. 11/01/17: POD#25. Doing well. Exam benign. Will recheck KUB this morning but still not much stoma activity. Continue TPN. If KUB looks good then may start slowly advancing diet and add bowel regimen such as miralax. 11/02/17: POD#26. Doing well, tolerating small amounts of liquid PO intake and Miralax. Abdominal exam is benign. Continue TPN. Will recheck labs and KUB tomorrow. 11/03/17: POD#27. Doing well. Tolerating small amounts of liquid PO and Miralax. KUB with mildly increased small bowel dilation but clinically he seems to be doing well. Will recheck KUB tomorrow and if it's not getting progressively worse and Kg isn't clinically worsening then will consider SLOWLY advancing his diet. Continue TPN in the mean time. Will convert him to depakote PO this morning. 11/04/17: POD#28. Doing well. Showing signs of improving bowel function and KUB with decreased SB dilation. Doing well on Miralax and colace. Will advance to full clear liquid diet without volume restrictions except will need to restrict his water intake due to his h/o psychogenic polydipsia. If he tolerates this today then will try full liquid diet tomorrow. Will continue TPN until tolerating regular diet. 11/05/17: POD#29. Doing well. Bowel function seems to be improving. Will start full liquid diet today. Continue fluid restriction. Continue Miralax and colace. Continue TPN until tolerating regular diet. 11/06/17: POD#30. Doing well. Had about 50cc out from colostomy. Made NPO yesterday, continue TPN. 11/07/17: POD#31: No changes. will check KUB to assess distention of bowels. If improvement may start clear liquid diet. 11/08/17: POD#32. No improvement. Will ask psychiatry to evaluate and consider medication adjustment in psych meds to improve bowel function. 11/09/17: POD#33. No improvement, continued ileus. Spoke with Dr. Pedraza with psychiatry yesterday and he recommended coming down on olanzapine to 10mg for 2 days then 5mg for 2 days then stop. Will replace NG tube if pt continues with emesis. Will stop PO meds. Continue TPN. 11/10/17: POD#34. No signs of improved bowel function this morning. Will continue to come down on olanzapine and follow bowel function. Continue bowel rest and TPN. 11/11/17: POD#35. KUB a little better but clinically not improving yet. Continue to come down on olanzapine. Will get 2nd day of 5mg tonight and then will stop it and monitor bowel function. Continue bowel rest and TPN. 11/12/17: POD#36. KUB with continued improvement. He's developed a rattle in his chest and a productive cough and CXR c/w PNA. Will ask Hospitalists to consult to direct abx coverage. Will stop olanzapine today and monitor bowel function. Continue bowel rest and TPN until bowel function clearly returns. 11/13/17: Little bit more activity from his stoma today. His abdomen is nice and soft without any tenderness. He has been off the Zyprexa for 24 hours. We' ll continue bowel rest and TPN. We'll get a KUB tomorrow and if it is looking good, essentially normal, then we'll consider slowly restarting clears but we' ll start with a bowel regimen 1st. Hospitalists have evaluated the patient and do not think that he has a pneumonia. He certainly clinically looks better from a respiratory standpoint today. He is not having a productive cough, his white blood cell count is normal, and he is not having any fevers, and he has not been having increased oxygen requirements. 11/14/17: KUB improving. Abdomen is soft and nontender. Will start colace and miralax today and if he does well with this then tomorrow will try clear diet again. O/W CCM. 11/15/17: KUB shows continued improvement. Abdomen is soft and nontender. Will start small volume clear diet in addition to the colace and miralax that I started yesterday. Will limit him to no more than 30ml/4hours. O/W CCM. 11/16/17: KUB about the same. Has really only had apple juice. Will encourage jell-o, broth, etc but will keep limit of 30mL/4 hours. Continue colace and miralax. Continue lovenox, PPI, etc. 11/17/17: KUB slightly improved. Stoma with increased output, both gas and stool. Will advance to unrestricted clear diet but will limit fluids to 1500mL/ 24 hours due to psychogenic polydipsia. Will insert perez and see how much urine is in his bladder and will see if his urinary symptoms improve with bladder decompression. Will also send UA. Continue colace and miralax. Continue lovenox, PPI, etc. K up to 5.1 this morning, will recheck tomorrow. 11/18/17: KUB improving. Stoma output is increasing. Will start introducing soft/full liquid diet items slowly and see how he tolerates this. Remove perez this morning. There was only 55mL in bladder with perez insertion so he's not retaining urine, suspect urge to constantly void his bladder is psychogenic. UA neg for infection. Continue colace and miralax. Continue TPN until consistently tolerating regular diet. Continue lovenox, PPI, etc. 11/19/17: Doing well. Tolerating full liquid diet but he hasn't had much of it yet. Not much of a motivation to eat. Will decrease TPN and push the diet. If he does well with full liquids then will plan on regular diet tomorrow. Continue colace, miralax, lovenox, PPI. Will conver meds to PO. 11/20/17: Continues to improve. Tolerating increase in his diet. Stoma functioning. Remains afebrile. Will DC TPN after this current bag. Disposition planning 11/21/17: No new issues, still hyponatremic, on salt tabs, TSH pending, Continue to encourage PO intake. DC planning. (2) Pneumonia Status: Resolved Assessment & Plan: Hospitalist consultation to start appropriate empiric abx coverage for HAP. (3) Urinary retention with incomplete bladder emptying Status: Chronic Assessment & Plan: Started flomax, will follow response. (4) Bipolar disorder, unspecified Status: Chronic Assessment & Plan: On Home medications (5) ANEMIA IN OTHER CHRONIC DISEASES CLASSIFIED ELSEWHERE Status: Chronic Assessment & Plan: Anemia likely secondary to chronic disease; Monitor (6) Hyponatremia Status: Chronic Assessment & Plan: 10/16/17: Appears to be euvolemic; Can adjust IV Fluids; Monitor 10/17/17: Sodium 132; on fluid restriction. IVF changed to NS from 2NS. Monitor (7) Hypoalbuminemia due to protein-calorie malnutrition Status: Chronic Assessment & Plan: Albumin 2.0; On TPN; Remains NPO due to ileus or bowel dysmotility (8) Hypoxia Status: Resolved Assessment & Plan: Remains on 2 liters Nasal Canula; Encourage ambulation/ assisted; Attempt O2 weaning (9) Peristomal hernia Status: Chronic Assessment & Plan: Present on admission exam and CT scan. Does not appear to be the source of his SBO. Easily reducible. Monitor during this acute process but may need repair remotely. Exam Sepsis Risk: No Definite Risk Problem Qualifiers (1) Pneumonia: Pneumonia type: due to unspecified organism Laterality: unspecified laterality Lung location: unspecified part of lung Qualified Codes: J18.9 - Pneumonia, unspecified organism ELIAZAR TENORIO MD Nov 21, 2017 09:46
[2017-11-21 12:10] VITALS: BP 126/68
[2017-11-21] MEDS: DIVALPROEX SOD ER 500 MG TABSR PO SCH ×2 (13:44→20:39)
[2017-11-21 16:03] VITALS: BP 111/80
[2017-11-21] MEDS: ONDANSETRON 4 MG/2 ML VIAL IVP PRN ×2 (17:46→20:41)
[2017-11-22] MEDS: IBUPROFEN 200 MG TAB PO PRN ×5 (02:42→20:50)
[2017-11-22 02:45] VITALS: BP 118/83
[2017-11-22] MEDS: ACETAMINOPHEN 325 MG TAB PO PRN ×3 (05:52→18:16)
--- NOTE | 2017-11-22 08:12 | General Surgery Progress Note ---
Subjective Progress Notes Subjective No complaints this morning. Waiting for breakfast. Feels hungry. No pain. No bloating. No N/V. Had an episode of emesis yesterday but staff believes it was medication related as it occurred shortly after a dose of depakote. He seems to be tolerating diet. Physical Exam Vital Signs Date Time Temp Pulse Resp B/P (MAP) Pulse Ox O2 Delivery O2 Flow Rate FiO2 11/22/17 02:45 83 16 118/83 (95) 94 Nasal Cannula 1.0 11/21/17 16:03 97.7 General Appearance: Alert, Awake, No Acute Distress, Afebrile GI: Soft and Non-Tender (Stoma is pink and functional) Extremities: Warm, Perfused Result Diagram: 11/21/1751111/21/17511 Assessment and Plan Problems: (1) Small bowel obstruction due to postoperative adhesions Status: Acute Assessment & Plan: 10/04/17: Admit, nothing by mouth, IV fluids, bowel rest, conservative management start with. We'll follow his x-rays and NG tube output as well as stoma output. We will hold off on any sort of surgery until he is about 6 weeks out from his initial resection surgery. Hopefully he will respond to conservative management. His last meal was yesterday and his mother reports that he has been eating reasonably well. If he is unable to eat and about 5 or 6 days then we will need to consider a PICC line and starting TPN. I have explained this plan to the patient's mother and she seems to understand and seems to be agreeable with this plan. 10/05/17: Continued small bowel obstruction clinically and radiographically based on his KUB this morning. Will continue conservative management with NG tube decompression, bowel rest, and IV fluids. Continue IV antibiotics for pneumonia. If he fails to get better in the next several days may consider diagnostic laparoscopy with drainage of the pelvic fluid collection and inspection of his small bowel. We'll let his small bowel decompress further before contemplating this. 10/06/17: Will give po gastrograffin and will get CT this afternoon. KUB a little better but not much function from stoma. May need to consider exploratory laparoscopy tomorrow if not getting better. Stoma with white patches and area of necrosis on inferior portion only. Possibly the stoma appliance was cut too tight and pressing on the stoma, will need to follow this. Will add antifungal coverage in case white patches represent fungal infection of stoma although I don't recall every having seen this. Pt still with intermittent low grade fevers on broad spectrum antibiotic coverage so antifungal coverage will broaden that coverage as well. O/W, CCM. 10/07/17: Not much change. No stoma output. KUB has not yet been done this morning. Labs OK. Still with low grade fevers. WBC normal, neutrophil count coming down. CT abd/pelvis yesterday with decreased small bowel distension but still with evidence of SBO, fluid collection in unchanged, no free fluid or air. 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 Will await KUB. Getting to the point where we will need to consider PICC line and starting TPN. May discuss laparoscopic exploration later today; will discuss with patient's mother. 10/08/17: 4 weeks s/p robotic LAR, POD#1 s/p ex-laparoscopy with RILEY and drainage of presacral fluid. Doing well. WBC normal. Will follow fevers/ vitals, etc. Place PICC today to start TPN. Await return of bowel function. 10/09/17: POD2 ex laparoscopy. Awaiting return of bowel function. +BS and minimal NGT output so may be soon. Plan to start TPN on Wednesday. Patient needs to ambulate. Continue abx for pneumonia. Will try to remove perez catheter tomorrow. 10/10/17: POD3 ex laparoscopy. Still awaiting return of bowel function. Clamp NGT till noon and remove if low residuals and in good position on KUB. continue abx, continue perez. dropped MIVF to 75cc/hr. Patient is not participating with therapy. Good bowel sounds so started bowel reg today, senna s/miralax. 10/11/17: POD4 ex laparoscopy. Awaiting bowel function. NGT removed yesterday. Plan PICC/TPN today. Will need swallow eval before taking orals, could not tolerate bowel reg yesterday. May attempt to remove perez today. Ordered labs. 10/12/17: POD#5. Stable. Started TPN yesterday. KUB with gas throughout colon , I suspect we'll start seeing gas in stoma bag in next day or two. Still some dilated small bowel but colon looks better on KUB. Perez out, patient seems to be urinating without problems. CCM until bowel function returns. 10/13/17: POD#6. Doing well but still no evidence of bowel function. Continue bowel rest and TPN. Await return of bowel function. COntinue lovenox and PPI. [facility]. 10/14/17: POD#7. Doing well. DAQUAN removed yesterday. KUB continues to improve with gas to distal colon but still no activity from stoma yet. Continue bowel rest and TPN while we await return of bowel function. Continue lovenox and PPI. 10/15/17: POD#8. Doing well but now with mild fevers and intermittent tachycardia. He has no pain and his abdominal exam is benign. Will get CXR and check UA. He's not on abx other than diflucan at this point. Continue bowel rest and TPN until bowel function returns. Continue lovenox, PPI. Hopeful for return of bowel function soon. 10/16/17: POD#9. Appears to be at his baseline. Ambulated with PT yesterday> 100 feet. Urinary incomplete emptying- started on Flomax 10/15. Stoma was irrigated with Fleets Enema by Dr Claudio 10/15 with nothing more out than enema fluid. He has no pain and his abdominal exam is benign. 10/15/17 with T max 100.4- CXR was clear and UA was clear--both improved today. Off abx but remains on Diflucan for ronda appearance of the stoma noted earlier in hospitalization. Will do a trial of Erythromycin for potential bowel dysmotility (secondary to bipolar meds?) Continue bowel rest and TPN until bowel function returns. Continue Lovenox, PPI. 10/17/17: POD#10. Appears to be at his baseline. Ambulated with PT yesterday> 100 feet x 2; stronger. Urinary incomplete emptying- started on Flomax 10/15 and bladder scan was minimal for retained fluid. Started on po erythromycin for dysmotility. Stoma with large gas and small liquid out. Started on clear liquids today. He has no pain and his abdominal exam is benign. Off abx and diflucan now while undergoing trial of Erythromycin. Continue TPN until full bowel function/appetite returns. Continue Lovenox, PPI. 10/17/17 (Addendum @ 1220): Intermittent tachycardia. Peristomal hernia noted upon standing by nursing staff. This has been noted previously. No gas output or liquid output since 0600 this AM. Abdomen remains benign to my exam. Discussed care plan with Dr Claudio and will try another enema today. Will continue erythromycin as a potential pro motility agent. 10/18/17: POD#11. Worsened from GI standpoint. Now with increased abdominal distension with N/V this morning. I stopped erythromycin and backed off on his diet. He had a fever this morning to 101F. Will obtain saucedo-cultures including cultures from his PICC line. Will get CXR, empirically start primaxin. May need to repeat abdominal CT. Will see how he does today and what cultures show , etc reveal. 10/19/17: POD#12. Doing better after Perez, NG tube placed and abx restarted. KUB c/w worsened ileus vs SBO. Fevers to over 101F yesterday, no fevers overnight, HR down this morning. Will repeat CT abd/pelvis today. Continue bowel rest, NG tube, TPN. No growth from cultures yet. 10/20/17: POD#13. Still without bowel function. CT c/w SBO with loop in pelvis and continued small bowel thickening in pelvis. Presacral fluid collection is small. Parastomal hernia but no obstruction. Pt's been afebrile now back on Primaxin. Continue bowel rest, NG tube decompression, TPN. No growth in cultures. Perez out last evening. Will see how he's able to void bladder. Will get SBFT with water-soluble contrast today. 10/21/17: POD#14. Possibly doing better? Having some stool output in bag. NG not putting out too much. Will start NG clamp trials. SBFT yesterday revealed no obstruction but c/w adynamic ileus. Now starting to see gastrograffin in stoma bag. Will try erythromycin as promotility agent. 10/22/17: POD#15. Now with stoma output after gastrograffin SBFT but still with dilated loops of small bowel on KUB. Continue NG clamp trials today and follow KUB. Started erythromycin yesterday, will see how effective this is. Continue bowel rest, TPN, etc until GI function clearly returning to normal. 10/23/17: POD#16. Doing well but KUB still with unchanging dilated loops of small bowel. NG not putting much out and pt tolerating clamp trials so will d/ c NG but will continue bowel rest and TPN. Continue erythromycin. 10/24/17: POD#17. Doing well. NG removed yesterday. Pt doing well. Still with ileus as no gas in bag. Will recheck KUB tomorrow morning. Continue bowel rest. May need to discuss Kg with psychiatry to discuss his medication' s role in prolonged ileus. Continue TPN. 10/25/17: POD#18. Doing well. Now having some gas from stoma. KUB looks a little better this morning with decreased dilated loops of small bowel. Hospital is out of Erythromycin IV and it is on backorder. Will change to PO erythromycin for promotility effects. Will o/w continue bowel rest until more signs of bowel activity since the last time she showed signs of gas and stool from his stoma when he was advanced to clears he became severely distended and we needed to replace his NG tube and resume rx for ileus vs SBO. Continue TPN until tolerating regular diet. 10/26/17: POD#19. Doing well. Increasing gas in stoma bag. Still with dilated loops of small bowel on KUB. Will hold of on diet for now until KUB markedly better and stoma bag consistently with a lot of gas in it (it is intermittent currently) given his previous intolerance to clear diet a couple of weeks ago when he acutely redeveloped his ileus. Continue bowel rest and TPN, continue PO erythromycin for promotility. 10/27/17: POD#20. Doing well. Bowel function improving. Will get KUB tomorrow morning and if small bowel dilation resolved then will slowly advance diet. Continue erythromycin, bowel rest, TPN today. 10/28/17: POD#21. Doing well. No gas in bag this morning. KUB with improving but still dilated loops of small bowel. Will see how his stoma is functioning today. Will change stoma bag to a new one to get a sense of stool output today. Continue bowel rest, TPN, erythromycin today. If he's putting gas/ stool out as today progresses, may try clear diet later today. 10/29/17: POD#22. No stoma activity once again. No gas or stool in bag for last 36-48hrs. Will check KUB this morning. O/W, continue bowel rest, TPN, erythromycin. 10/30/17: POD#23. Still no activity from the stoma. Patient is not in distress and does not have a suspicious abdominal exam. Continue to monitor, continue TPN and NPO. Ambulate. 10/31/17: POD#24: No evidence of nausea, distension or pain in his abdomen. Some slight amount more stool but not a significant amount. Continue TPN and watchful waiting. Patient experienced a non injury fall yesterday with no obvious sequelae. 11/01/17: POD#25. Doing well. Exam benign. Will recheck KUB this morning but still not much stoma activity. Continue TPN. If KUB looks good then may start slowly advancing diet and add bowel regimen such as miralax. 11/02/17: POD#26. Doing well, tolerating small amounts of liquid PO intake and Miralax. Abdominal exam is benign. Continue TPN. Will recheck labs and KUB tomorrow. 11/03/17: POD#27. Doing well. Tolerating small amounts of liquid PO and Miralax. KUB with mildly increased small bowel dilation but clinically he seems to be doing well. Will recheck KUB tomorrow and if it's not getting progressively worse and Kg isn't clinically worsening then will consider SLOWLY advancing his diet. Continue TPN in the mean time. Will convert him to depakote PO this morning. 11/04/17: POD#28. Doing well. Showing signs of improving bowel function and KUB with decreased SB dilation. Doing well on Miralax and colace. Will advance to full clear liquid diet without volume restrictions except will need to restrict his water intake due to his h/o psychogenic polydipsia. If he tolerates this today then will try full liquid diet tomorrow. Will continue TPN until tolerating regular diet. 11/05/17: POD#29. Doing well. Bowel function seems to be improving. Will start full liquid diet today. Continue fluid restriction. Continue Miralax and colace. Continue TPN until tolerating regular diet. 11/06/17: POD#30. Doing well. Had about 50cc out from colostomy. Made NPO yesterday, continue TPN. 11/07/17: POD#31: No changes. will check KUB to assess distention of bowels. If improvement may start clear liquid diet. 11/08/17: POD#32. No improvement. Will ask psychiatry to evaluate and consider medication adjustment in psych meds to improve bowel function. 11/09/17: POD#33. No improvement, continued ileus. Spoke with Dr. Pedraza with psychiatry yesterday and he recommended coming down on olanzapine to 10mg for 2 days then 5mg for 2 days then stop. Will replace NG tube if pt continues with emesis. Will stop PO meds. Continue TPN. 11/10/17: POD#34. No signs of improved bowel function this morning. Will continue to come down on olanzapine and follow bowel function. Continue bowel rest and TPN. 11/11/17: POD#35. KUB a little better but clinically not improving yet. Continue to come down on olanzapine. Will get 2nd day of 5mg tonight and then will stop it and monitor bowel function. Continue bowel rest and TPN. 11/12/17: POD#36. KUB with continued improvement. He's developed a rattle in his chest and a productive cough and CXR c/w PNA. Will ask Hospitalists to consult to direct abx coverage. Will stop olanzapine today and monitor bowel function. Continue bowel rest and TPN until bowel function clearly returns. 11/13/17: Little bit more activity from his stoma today. His abdomen is nice and soft without any tenderness. He has been off the Zyprexa for 24 hours. We' ll continue bowel rest and TPN. We'll get a KUB tomorrow and if it is looking good, essentially normal, then we'll consider slowly restarting clears but we' ll start with a bowel regimen 1st. Hospitalists have evaluated the patient and do not think that he has a pneumonia. He certainly clinically looks better from a respiratory standpoint today. He is not having a productive cough, his white blood cell count is normal, and he is not having any fevers, and he has not been having increased oxygen requirements. 11/14/17: KUB improving. Abdomen is soft and nontender. Will start colace and miralax today and if he does well with this then tomorrow will try clear diet again. O/W CCM. 11/15/17: KUB shows continued improvement. Abdomen is soft and nontender. Will start small volume clear diet in addition to the colace and miralax that I started yesterday. Will limit him to no more than 30ml/4hours. O/W CCM. 11/16/17: KUB about the same. Has really only had apple juice. Will encourage jell-o, broth, etc but will keep limit of 30mL/4 hours. Continue colace and miralax. Continue lovenox, PPI, etc. 11/17/17: KUB slightly improved. Stoma with increased output, both gas and stool. Will advance to unrestricted clear diet but will limit fluids to 1500mL/ 24 hours due to psychogenic polydipsia. Will insert perez and see how much urine is in his bladder and will see if his urinary symptoms improve with bladder decompression. Will also send UA. Continue colace and miralax. Continue lovenox, PPI, etc. K up to 5.1 this morning, will recheck tomorrow. 11/18/17: KUB improving. Stoma output is increasing. Will start introducing soft/full liquid diet items slowly and see how he tolerates this. Remove perez this morning. There was only 55mL in bladder with perez insertion so he's not retaining urine, suspect urge to constantly void his bladder is psychogenic. UA neg for infection. Continue colace and miralax. Continue TPN until consistently tolerating regular diet. Continue lovenox, PPI, etc. 11/19/17: Doing well. Tolerating full liquid diet but he hasn't had much of it yet. Not much of a motivation to eat. Will decrease TPN and push the diet. If he does well with full liquids then will plan on regular diet tomorrow. Continue colace, miralax, lovenox, PPI. Will conver meds to PO. 11/20/17: Continues to improve. Tolerating increase in his diet. Stoma functioning. Remains afebrile. Will DC TPN after this current bag. Disposition planning 11/21/17: No new issues, still hyponatremic, on salt tabs, TSH pending, Continue to encourage PO intake. DC planning. 11/22/17: Ileus seems to be much better and he is tolerating his diet. Will need to look at d/c in the next day or two. Will ask PT/OT what their opinion is regarding safety and ability to go home with home health nursing/PT, vs inpatient rehab or ECF. My sense is that he would be able to go home with home health RN and PT. TSH is still pending, will f/u on this. (2) Pneumonia Status: Resolved Assessment & Plan: Hospitalist consultation to start appropriate empiric abx coverage for HAP. (3) Urinary retention with incomplete bladder emptying Status: Chronic Assessment & Plan: Started flomax, will follow response. (4) Bipolar disorder, unspecified Status: Chronic Assessment & Plan: On Home medications (5) ANEMIA IN OTHER CHRONIC DISEASES CLASSIFIED ELSEWHERE Status: Chronic Assessment & Plan: Anemia likely secondary to chronic disease; Monitor (6) Hyponatremia Status: Chronic Assessment & Plan: 10/16/17: Appears to be euvolemic; Can adjust IV Fluids; Monitor 10/17/17: Sodium 132; on fluid restriction. IVF changed to NS from 1/2NS. Monitor (7) Hypoalbuminemia due to protein-calorie malnutrition Status: Chronic Assessment & Plan: Albumin 2.0; On TPN; Remains NPO due to ileus or bowel dysmotility (8) Hypoxia Status: Resolved Assessment & Plan: Remains on 2 liters Nasal Canula; Encourage ambulation/ assisted; Attempt O2 weaning (9) Peristomal hernia Status: Chronic Assessment & Plan: Present on admission exam and CT scan. Does not appear to be the source of his SBO. Easily reducible. Monitor during this acute process but may need repair remotely. Condition Stable. Time Spent: < 30 min Exam Sepsis Risk: No Definite Risk Problem Qualifiers (1) Pneumonia: Pneumonia type: due to unspecified organism Laterality: unspecified laterality Lung location: unspecified part of lung Qualified Codes: J18.9 - Pneumonia, unspecified organism ZACH CLAUDIO MD Nov 22, 2017 08:12
[2017-11-22 09:07] VITALS: BP 107/67
[2017-11-22] MEDS: DIVALPROEX SOD ER 500 MG TABSR PO SCH ×2 (09:10→20:51)
[2017-11-22] MEDS: SODIUM CHLORIDE 1 GR TAB PO SCH ×3 (09:10→17:33)
[2017-11-22] MEDS: POLYETHYLENE GLYCOL 17 GM PKT PO SCH (09:10)
[2017-11-22] MEDS: DOCUSATE SODIUM 100 MG CAP PO SCH ×2 (09:10→20:50)
[2017-11-22] MEDS: PANTOPRAZOLE SOD 40 MG TABEC PO SCH (09:10)
[2017-11-22] MEDS: ENOXAPARIN 40 MG/0.4ML SYR SC SCH (09:11)
--- NOTE | 2017-11-22 09:16 | Medical Nutrition Therapy ---
Nutrition Anthropometrics Height (Inches): 67.00 Height (Calculated Centimeters: 170.589705 Weight (Pounds): 142 Weight (Calculated Kilograms): 64.410 BMI: 22.5 Sherman Nutrition Score: Adequate Sherman Nutrition Risk Score: 19 Dietary Referral Nutrition Risk Factors: Nutrition Risk Comment: Nutritional Diagnosis Nutritional Risk Acuity 1: TPN/PPN, GI Obstruction (SBO) Nutritional Risk Acuity 3: Colostomy Past Medical History: fecal incontinence, severe manic bipolar 1 disorder with psychotic behavior, psychogenic polydipsia, hyponatremia, OCD, rectal cancer, SBO, fatigue, weakness, hyperlipidemia, pneumonia, hx colon cancer, pevlic fluid collection Nutritional Acuity: 1-High Nutrition Diagnosis: Inadequate Food Intake Nutrition Etiology: Physiological Causes Nutrition Problem/Etiology/Sym: Inadequate oral intake related to physiological causes as evidence by nutrition support from TPN. Energy Requirement: 2515 (Miffliin-St.Jeor X 1.3SF) Protein Requirement: 86 (1.3gm/kg) Fluid Requirement: 1500 (fluid restrict. <1.5L) Diet Type: Diet as Tolerated PABLO/REG Nutrition Intervention: Encourage intake, Between meal supplement Additional Diet Restrictions: OFFER NUTR SUPPLMENT Nutrition Monitoring & Eval Nutrition Goals: Eat 75-100% Meal Nutrition Follow-Up: Fair Intake RD Patient Assessment Time: [address] Assessment Type: RD Re-Assessment Patient Nutrition Acuity: 2-Moderate Follow Up Date: Dec 23, 2017 Nutritional Comment: 10/05 Pt admitted for SBO and pneumonia. Pt is experiencing N/V, fever and abdominal pain. Pt is on NPO diet with meds only. Pt has a hx of colon cancer. Pt had a colostomy placed (09/10). Pt mother states the his bowel movements have in his bag have been more bulky. She states that he eats reasonably well. However, in doctor's note he had stated if pt does not eat within the next 5-6 days a PICC line and TPN would be placed. Mother agreed to this plan. Pt WBC was elevated and has reach WNR. Pt is on antibiotics for pneumonia. Pt has pelvic fluid collection and at risk for sepsis. Pt has low Na (130) and low H/H. Continue to monitor pt progress, labs and diet advancement. -MT 10/07 Pt continues on NPO diet, he is now on day three. Pt states that he wants water. Pt still has evidence of SBO and fluid collection. In the doctor's note it states pt is getting to the point where we will need to consider PICC line and starting TPN. Pt may benefit from 1800 ml TPN at 75ml/hr providing 1836 kcal ad 76g protein. This will meet 94% of the pt energy needs and 97% protein. Pt has low alb (2.3), no other concern labs at this time. Will continue to monitor pt progress and TPN order. -MT 10/08 Pt 4th day NPO. Per Dr notes, pt will start TPN today. Alb has declined to 2. Recommend final TPN rate of 75 ml/hr plus lipids to meet 109% est kcal and 97% est protein needs. BK 10/10 Low H/H, Alb 2.0, Low Ca+. TPN delayed until Wednesday (10/11), bowel sounds now present. Follow clinical progression. -DRT 10/12 Continues to have low H/H, low WBC, Na (127), alb (2.1) and elevated K+ (6.9). Pt started TPN (10/11). NG tube and perez removed. Pt did swallowing eval. No concern at this time. Will continue to monitor pt progress and diet advancement. -MT 10/15 No complaints. Pt has mild fever. Pt is still weak and experiencing tremors in both LE. DAQUAN removed yesterday (10/14). Colostomy bag continues to have gas in it, however no BM. Per doctor note continue bowel rest and TPN while we await return of bowel function. Pt urinary retention and pneumonia have been resolved. Pt Na is low (133). Pt is receiving IV Na PRN. Will continue to monitor pt progress, labs and encourage intake.-MT 10/18 Pt continues on TPN until bowel function returns to normal. Per doctor note, will do a trial of Erythromycin for potential bowel dysmotility. Did two enemas, got some liquids in colostomy bag. However doctors note states GI has gotten worse. Pt is distended with N/V. Pt had a fever yesterday (101) with elevated WAC (11.1) and blood glucose ( 128). Pt has had a 5# wt loss since 10/12 (146#) to now (141). Will continue to monitor pt progress, labs and diet advancement. -MT 10/20 Wt is down 10# since admission. Alb 2.5 is improving. Pt cont on TPN. Reassessed nutritional needs with est higher kcal and protein needs. Recommend increase TPN to 2000 ml/24 hr plus 250ml lipids 12 hrs to meet 95% est kcal and 98% est protein needs. Cont to monitor. BK 10/23 Pt cont on TPN with hypoactivbe bowel sounds. TPN was increased to 2000ml/24 hr to meet 95% est kcal and 98% est protein needs. Alb at 2.3 slowly increaseing . Wt is up 2#. Will cont to monitor. BK 10/25 Pt cont on TPN with hypoactivbe bowel sounds and maryanne from stoma. TPN is meeting 95% est kcal and 98% est protein needs. Alb at 2.4 is slowly increaseing . Wt is within usual range. Will cont to monitor. BK 10/28 Pt cont on TPN however on10/24 pharmacy changed to a 15% dextrose, 5% protein solution which provides 1420 kcal + 500 from lipid for total kcal of 2020 and 100 gm protein. This meets 80% est kcal and 116% est protein needs. Pt has lost wt from 144# on 10/24 to 133# on 10/27 with some of the wt loss probalby r/t fluids. However recommend increase TPN to 3000ml/day to provide 2630 kcal to meet 105% est kcal and 174% est protein needs to avoid futher wt loss. Alb declined to 2.3 so additional protein would be helpful. Recommend cont TPN until oral intake can meet nutr needs. BK 10/29 TPN increased to 3L/day of Clinimex 09/07. TPN is now meeting 105% est kcal needs, 174% est protein needs. Wt is back up 4#. Cont down 19% from admit wt. Alb 2.3. Cont to monitor. BK 11/01 Pt continues on TPN 3L/day Clinimex 09/07. Pt. has hypoactive bowel sounds, no gas from stoma. Wt. is fluctuating between 133-135# over past 4 days. Alb. has increased to 2.6. May advance diet with Miralax pending KUB. On 10/30 pt. was asleep, but talked with mother - will educate on high kcal/protein diet once off TPN. Will continue to monitor. RB 11/04 Diet advanced to clear liquids with TPN 3L/day Clinimex 15 to meet needs. Pt. seems to be tolerating well - ate 25% of clear tray at breakfast on 11/03. Flatus present and improving KUB function. Alb. now at 2.8, continues to trend upward. Wt. also fluctuating btw. 132-139# over the past week, now at 138#. On water restriction per DrAntonina note due to psychogenic polydipsia. BUN running slightly high (22) on 11/01 and 11/03 but WNL previously. Sodium levels slightly low at 134, avg. 132-136. Will continue to monitor progress, labs and diet advancement. RB 11/05 Diet advanced to med liquid/GI soft. No intake reported at this time. Nursing providing foods. Wt up slightly 10 139# but within the range he has been fluctuating. Pt cont on TPN which is meeting nutritional needs. Will cont to monitor. 11/07 Was informed by pharmacy that they are on the last bottle of Cinimex 15% dextrose, 5% AA. They will be able to stock and cont to keep on hand Cinimex 20% dextrose, 5% AA. Recommend change to that formula at a rate of 100ml/hr plus lipids to provide 2612 kcal, 100g protein to meet 104% est kcal and 120% est protein needs. Dr Calvillo was called and informed of the unaviabilty of the previous TPN solution and the recommended change. 11/08 TPN was changed to recommended rate with Clinimex 5% AA / 20% Dex at 100 mL/hr. This provides 104% est kcal and 120% est protein needs. Pt. has distended hypoactive bowel - no improvement in KUB per DrAntonina note. Blood glucose 104 today. Wt continues to trend upward; he is at 64.4kg. Will monitor wt., labs and TPN. - RB 11/11 Pt continues on TPN Clinimex 5%AA/ 20% Dex. Wt stable at 64.4kg. Per Dr note, KUB seems to be improving a bit. Olazipine script reduced to 5mg now to see if GI motility improves. Small stool in bag, no gas present, stoma pink. Hgb/Hct still low, Na 133, BUN 22. Will continue to monitor bowel function, labs, TPN and wt. - RB 11/19 Pt. TPN reduced to 75ml/hr Clinimix E 5-20% w/ 250 ml lipids in conjunction w/ GI soft diet. TPN is now providing 83% kcal and 96% protein needs. Dr mosley state will plan to increase diet to regular by tomorrow if pt cont. to tolerate PO intake. Pt still on fluid restriction of 1500ml/day. H/H still low, Na+ 127 trending down, K+ 5.1 a bit high today. Alb cont. to trend upward to 3.1, highest since admit. Pt doing well - will cont to monitor labs, TPN, diet advancement and encourage intake. -RB 11/22 TPN d/santos. Diet advanced to regular. Intake average 59% of small to regular portions. Alb cont low at 3. Will offer nutr supplment. Will cont to monitor. JOE PADILLA Nov 22, 2017 09:16
[2017-11-22 13:28] VITALS: BP 114/90
[2017-11-22 14:59] VITALS: BP 113/69
[2017-11-22 20:06] VITALS: BP 158/72
[2017-11-22 22:28] VITALS: BP 167/66
[2017-11-23] MEDS: ACETAMINOPHEN 325 MG TAB PO PRN ×2 (00:07→06:23)
[2017-11-23] MEDS: IBUPROFEN 200 MG TAB PO PRN ×2 (02:03→08:41)
[2017-11-23 03:17] VITALS: BP 134/82
--- NOTE | 2017-11-23 07:28 | Short(Outpt) Discharge Summary ---
Discharge Summary Reason for Hosp/Final Diag: (1) Small bowel obstruction due to postoperative adhesions Status: Acute Hospital Course & Plan: 10/04/17: Admit, nothing by mouth, IV fluids, bowel rest, conservative management start with. We'll follow his x-rays and NG tube output as well as stoma output. We will hold off on any sort of surgery until he is about 6 weeks out from his initial resection surgery. Hopefully he will respond to conservative management. His last meal was yesterday and his mother reports that he has been eating reasonably well. If he is unable to eat and about 5 or 6 days then we will need to consider a PICC line and starting TPN. I have explained this plan to the patient's mother and she seems to understand and seems to be agreeable with this plan. 10/05/17: Continued small bowel obstruction clinically and radiographically based on his KUB this morning. Will continue conservative management with NG tube decompression, bowel rest, and IV fluids. Continue IV antibiotics for pneumonia. If he fails to get better in the next several days may consider diagnostic laparoscopy with drainage of the pelvic fluid collection and inspection of his small bowel. We'll let his small bowel decompress further before contemplating this. 10/06/17: Will give po gastrograffin and will get CT this afternoon. KUB a little better but not much function from stoma. May need to consider exploratory laparoscopy tomorrow if not getting better. Stoma with white patches and area of necrosis on inferior portion only. Possibly the stoma appliance was cut too tight and pressing on the stoma, will need to follow this. Will add antifungal coverage in case white patches represent fungal infection of stoma although I don't recall every having seen this. Pt still with intermittent low grade fevers on broad spectrum antibiotic coverage so antifungal coverage will broaden that coverage as well. O/W, CCM. 10/07/17: Not much change. No stoma output. KUB has not yet been done this morning. Labs OK. Still with low grade fevers. WBC normal, neutrophil count coming down. CT abd/pelvis yesterday with decreased small bowel distension but still with evidence of SBO, fluid collection in unchanged, no free fluid or air. 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 Will await KUB. Getting to the point where we will need to consider PICC line and starting TPN. May discuss laparoscopic exploration later today; will discuss with patient's mother. 10/08/17: 4 weeks s/p robotic LAR, POD#1 s/p ex-laparoscopy with RILEY and drainage of presacral fluid. Doing well. WBC normal. Will follow fevers/ vitals, etc. Place PICC today to start TPN. Await return of bowel function. 10/09/17: POD2 ex laparoscopy. Awaiting return of bowel function. +BS and minimal NGT output so may be soon. Plan to start TPN on Wednesday. Patient needs to ambulate. Continue abx for pneumonia. Will try to remove perez catheter tomorrow. 10/10/17: POD3 ex laparoscopy. Still awaiting return of bowel function. Clamp NGT till noon and remove if low residuals and in good position on KUB. continue abx, continue perez. dropped MIVF to 75cc/hr. Patient is not participating with therapy. Good bowel sounds so started bowel reg today, senna s/miralax. 10/11/17: POD4 ex laparoscopy. Awaiting bowel function. NGT removed yesterday. Plan PICC/TPN today. Will need swallow eval before taking orals, could not tolerate bowel reg yesterday. May attempt to remove perez today. Ordered labs. 10/12/17: POD#5. Stable. Started TPN yesterday. KUB with gas throughout colon , I suspect we'll start seeing gas in stoma bag in next day or two. Still some dilated small bowel but colon looks better on KUB. Perez out, patient seems to be urinating without problems. CCM until bowel function returns. 10/13/17: POD#6. Doing well but still no evidence of bowel function. Continue bowel rest and TPN. Await return of bowel function. COntinue lovenox and PPI. CCM. 10/14/17: POD#7. Doing well. DAQUAN removed yesterday. KUB continues to improve with gas to distal colon but still no activity from stoma yet. Continue bowel rest and TPN while we await return of bowel function. Continue lovenox and PPI. 10/15/17: POD#8. Doing well but now with mild fevers and intermittent tachycardia. He has no pain and his abdominal exam is benign. Will get CXR and check UA. He's not on abx other than diflucan at this point. Continue bowel rest and TPN until bowel function returns. Continue lovenox, PPI. Hopeful for return of bowel function soon. 10/16/17: POD#9. Appears to be at his baseline. Ambulated with PT yesterday> 100 feet. Urinary incomplete emptying- started on Flomax 10/15. Stoma was irrigated with Fleets Enema by Dr Claudio 10/15 with nothing more out than enema fluid. He has no pain and his abdominal exam is benign. 10/15/17 with T max 100.4- CXR was clear and UA was clear--both improved today. Off abx but remains on Diflucan for ronda appearance of the stoma noted earlier in hospitalization. Will do a trial of Erythromycin for potential bowel dysmotility (secondary to bipolar meds?) Continue bowel rest and TPN until bowel function returns. Continue Lovenox, PPI. 10/17/17: POD#10. Appears to be at his baseline. Ambulated with PT yesterday> 100 feet x 2; stronger. Urinary incomplete emptying- started on Flomax 10/15 and bladder scan was minimal for retained fluid. Started on po erythromycin for dysmotility. Stoma with large gas and small liquid out. Started on clear liquids today. He has no pain and his abdominal exam is benign. Off abx and diflucan now while undergoing trial of Erythromycin. Continue TPN until full bowel function/appetite returns. Continue Lovenox, PPI. 10/17/17 (Addendum @ 1220): Intermittent tachycardia. Peristomal hernia noted upon standing by nursing staff. This has been noted previously. No gas output or liquid output since 0600 this AM. Abdomen remains benign to my exam. Discussed care plan with Dr Claudio and will try another enema today. Will continue erythromycin as a potential pro motility agent. 10/18/17: POD#11. Worsened from GI standpoint. Now with increased abdominal distension with N/V this morning. I stopped erythromycin and backed off on his diet. He had a fever this morning to 101F. Will obtain saucedo-cultures including cultures from his PICC line. Will get CXR, empirically start primaxin. May need to repeat abdominal CT. Will see how he does today and what cultures show , etc reveal. 10/19/17: POD#12. Doing better after Perez, NG tube placed and abx restarted. KUB c/w worsened ileus vs SBO. Fevers to over 101F yesterday, no fevers overnight, HR down this morning. Will repeat CT abd/pelvis today. Continue bowel rest, NG tube, TPN. No growth from cultures yet. 10/20/17: POD#13. Still without bowel function. CT c/w SBO with loop in pelvis and continued small bowel thickening in pelvis. Presacral fluid collection is small. Parastomal hernia but no obstruction. Pt's been afebrile now back on Primaxin. Continue bowel rest, NG tube decompression, TPN. No growth in cultures. Perez out last evening. Will see how he's able to void bladder. Will get SBFT with water-soluble contrast today. 10/21/17: POD#14. Possibly doing better? Having some stool output in bag. NG not putting out too much. Will start NG clamp trials. SBFT yesterday revealed no obstruction but c/w adynamic ileus. Now starting to see gastrograffin in stoma bag. Will try erythromycin as promotility agent. 10/22/17: POD#15. Now with stoma output after gastrograffin SBFT but still with dilated loops of small bowel on KUB. Continue NG clamp trials today and follow KUB. Started erythromycin yesterday, will see how effective this is. Continue bowel rest, TPN, etc until GI function clearly returning to normal. 10/23/17: POD#16. Doing well but KUB still with unchanging dilated loops of small bowel. NG not putting much out and pt tolerating clamp trials so will d/ c NG but will continue bowel rest and TPN. Continue erythromycin. 10/24/17: POD#17. Doing well. NG removed yesterday. Pt doing well. Still with ileus as no gas in bag. Will recheck KUB tomorrow morning. Continue bowel rest. May need to discuss Kg with psychiatry to discuss his medication' s role in prolonged ileus. Continue TPN. 10/25/17: POD#18. Doing well. Now having some gas from stoma. KUB looks a little better this morning with decreased dilated loops of small bowel. Hospital is out of Erythromycin IV and it is on backorder. Will change to PO erythromycin for promotility effects. Will o/w continue bowel rest until more signs of bowel activity since the last time she showed signs of gas and stool from his stoma when he was advanced to clears he became severely distended and we needed to replace his NG tube and resume rx for ileus vs SBO. Continue TPN until tolerating regular diet. 10/26/17: POD#19. Doing well. Increasing gas in stoma bag. Still with dilated loops of small bowel on KUB. Will hold of on diet for now until KUB markedly better and stoma bag consistently with a lot of gas in it (it is intermittent currently) given his previous intolerance to clear diet a couple of weeks ago when he acutely redeveloped his ileus. Continue bowel rest and TPN, continue PO erythromycin for promotility. 10/27/17: POD#20. Doing well. Bowel function improving. Will get KUB tomorrow morning and if small bowel dilation resolved then will slowly advance diet. Continue erythromycin, bowel rest, TPN today. 10/28/17: POD#21. Doing well. No gas in bag this morning. KUB with improving but still dilated loops of small bowel. Will see how his stoma is functioning today. Will change stoma bag to a new one to get a sense of stool output today. Continue bowel rest, TPN, erythromycin today. If he's putting gas/ stool out as today progresses, may try clear diet later today. 10/29/17: POD#22. No stoma activity once again. No gas or stool in bag for last 36-48hrs. Will check KUB this morning. O/W, continue bowel rest, TPN, erythromycin. 10/30/17: POD#23. Still no activity from the stoma. Patient is not in distress and does not have a suspicious abdominal exam. Continue to monitor, continue TPN and NPO. Ambulate. 10/31/17: POD#24: No evidence of nausea, distension or pain in his abdomen. Some slight amount more stool but not a significant amount. Continue TPN and watchful waiting. Patient experienced a non injury fall yesterday with no obvious sequelae. 11/01/17: POD#25. Doing well. Exam benign. Will recheck KUB this morning but still not much stoma activity. Continue TPN. If KUB looks good then may start slowly advancing diet and add bowel regimen such as miralax. 11/02/17: POD#26. Doing well, tolerating small amounts of liquid PO intake and Miralax. Abdominal exam is benign. Continue TPN. Will recheck labs and KUB tomorrow. 11/03/17: POD#27. Doing well. Tolerating small amounts of liquid PO and Miralax. KUB with mildly increased small bowel dilation but clinically he seems to be doing well. Will recheck KUB tomorrow and if it's not getting progressively worse and Kg isn't clinically worsening then will consider SLOWLY advancing his diet. Continue TPN in the mean time. Will convert him to depakote PO this morning. 11/04/17: POD#28. Doing well. Showing signs of improving bowel function and KUB with decreased SB dilation. Doing well on Miralax and colace. Will advance to full clear liquid diet without volume restrictions except will need to restrict his water intake due to his h/o psychogenic polydipsia. If he tolerates this today then will try full liquid diet tomorrow. Will continue TPN until tolerating regular diet. 11/05/17: POD#29. Doing well. Bowel function seems to be improving. Will start full liquid diet today. Continue fluid restriction. Continue Miralax and colace. Continue TPN until tolerating regular diet. 11/06/17: POD#30. Doing well. Had about 50cc out from colostomy. Made NPO yesterday, continue TPN. 11/07/17: POD#31: No changes. will check KUB to assess distention of bowels. If improvement may start clear liquid diet. 11/08/17: POD#32. No improvement. Will ask psychiatry to evaluate and consider medication adjustment in psych meds to improve bowel function. 11/09/17: POD#33. No improvement, continued ileus. Spoke with Dr. Pedraza with psychiatry yesterday and he recommended coming down on olanzapine to 10mg for 2 days then 5mg for 2 days then stop. Will replace NG tube if pt continues with emesis. Will stop PO meds. Continue TPN. 11/10/17: POD#34. No signs of improved bowel function this morning. Will continue to come down on olanzapine and follow bowel function. Continue bowel rest and TPN. 11/11/17: POD#35. KUB a little better but clinically not improving yet. Continue to come down on olanzapine. Will get 2nd day of 5mg tonight and then will stop it and monitor bowel function. Continue bowel rest and TPN. 11/12/17: POD#36. KUB with continued improvement. He's developed a rattle in his chest and a productive cough and CXR c/w PNA. Will ask Hospitalists to consult to direct abx coverage. Will stop olanzapine today and monitor bowel function. Continue bowel rest and TPN until bowel function clearly returns. 11/13/17: Little bit more activity from his stoma today. His abdomen is nice and soft without any tenderness. He has been off the Zyprexa for 24 hours. We' ll continue bowel rest and TPN. We'll get a KUB tomorrow and if it is looking good, essentially normal, then we'll consider slowly restarting clears but we' ll start with a bowel regimen 1st. Hospitalists have evaluated the patient and do not think that he has a pneumonia. He certainly clinically looks better from a respiratory standpoint today. He is not having a productive cough, his white blood cell count is normal, and he is not having any fevers, and he has not been having increased oxygen requirements. 11/14/17: KUB improving. Abdomen is soft and nontender. Will start colace and miralax today and if he does well with this then tomorrow will try clear diet again. O/W CCM. 11/15/17: KUB shows continued improvement. Abdomen is soft and nontender. Will start small volume clear diet in addition to the colace and miralax that I started yesterday. Will limit him to no more than 30ml/4hours. O/W CCM. 11/16/17: KUB about the same. Has really only had apple juice. Will encourage jell-o, broth, etc but will keep limit of 30mL/4 hours. Continue colace and miralax. Continue lovenox, PPI, etc. 11/17/17: KUB slightly improved. Stoma with increased output, both gas and stool. Will advance to unrestricted clear diet but will limit fluids to 1500mL/ 24 hours due to psychogenic polydipsia. Will insert perez and see how much urine is in his bladder and will see if his urinary symptoms improve with bladder decompression. Will also send UA. Continue colace and miralax. Continue lovenox, PPI, etc. K up to 5.1 this morning, will recheck tomorrow. 11/18/17: KUB improving. Stoma output is increasing. Will start introducing soft/full liquid diet items slowly and see how he tolerates this. Remove perez this morning. There was only 55mL in bladder with perez insertion so he's not retaining urine, suspect urge to constantly void his bladder is psychogenic. UA neg for infection. Continue colace and miralax. Continue TPN until consistently tolerating regular diet. Continue lovenox, PPI, etc. 11/19/17: Doing well. Tolerating full liquid diet but he hasn't had much of it yet. Not much of a motivation to eat. Will decrease TPN and push the diet. If he does well with full liquids then will plan on regular diet tomorrow. Continue colace, miralax, lovenox, PPI. Will conver meds to PO. 11/20/17: Continues to improve. Tolerating increase in his diet. Stoma functioning. Remains afebrile. Will DC TPN after this current bag. Disposition planning 11/21/17: No new issues, still hyponatremic, on salt tabs, TSH pending, Continue to encourage PO intake. DC planning. 11/22/17: Ileus seems to be much better and he is tolerating his diet. Will need to look at d/c in the next day or two. Will ask PT/OT what their opinion is regarding safety and ability to go home with home health nursing/PT, vs inpatient rehab or ECF. My sense is that he would be able to go home with home health RN and PT. TSH is still pending, will f/u on this. 11/23/17: Ileus has resolved and Kg's abdomen is soft and nontender without distension and stoma is pink with lots of gas and stool in bag. TSH slightly high but will hold off on thyroid replacement to avoid exacerbating his bipolar d/o with mathieu but he may require thyroid replacement in the future. Will recheck this in 3 months. I will see him back in my office in 3 days and will follow him closely as an outpatient. (2) Pneumonia Status: Resolved Hospital Course & Plan: Hospitalist consultation to start appropriate empiric abx coverage for HAP. (3) Urinary retention with incomplete bladder emptying Status: Chronic Hospital Course & Plan: Started flomax, will follow response. (4) Bipolar disorder, unspecified Status: Chronic Hospital Course & Plan: On Home medications (5) ANEMIA IN OTHER CHRONIC DISEASES CLASSIFIED ELSEWHERE Status: Chronic Hospital Course & Plan: Anemia likely secondary to chronic disease; Monitor (6) Hyponatremia Status: Chronic Hospital Course & Plan: 10/16/17: Appears to be euvolemic; Can adjust IV Fluids ; Monitor 10/17/17: Sodium 132; on fluid restriction. IVF changed to NS from 1/2NS. Monitor (7) Hypoalbuminemia due to protein-calorie malnutrition Status: Chronic Hospital Course & Plan: Albumin 2.0; On TPN; Remains NPO due to ileus or bowel dysmotility (8) Hypoxia Status: Resolved Hospital Course & Plan: Remains on 2 liters Nasal [place]; Encourage ambulation/ assisted; Attempt O2 weaning (9) Peristomal hernia Status: Chronic Hospital Course & Plan: Present on admission exam and CT scan. Does not appear to be the source of his SBO. Easily reducible. Monitor during this acute process but may need repair remotely. Departure Discharge to: Home, Home Health Discharge Instructions Home Meds Reported Medications Olanzapine (OLANZAPINE) 20 Mg Tablet, 20 MG PO QHS 11/06/16 Divalproex Sodium (DEPAKOTE) 500 Mg Tablet.dr, 1000 MG PO QHS, TAB 11/06/16 Divalproex Sodium (DEPAKOTE) 500 Mg Tablet., 500 MG PO QAM, TAB 11/06/16 Follow up Referrals: General Surgery - 11/26/17 @ Surgery, General with Zach Claudio Md Matthew has a follow up appointment scheduled with Dr. Claudio on 11/26/17, at 1: 30pm. Diet: Regular Activity: As Tolerated Special Instructions: Stay off the Olanzapine. Work with Matthew's mental health provider regarding Kg's Depakote. Problem Qualifiers (1) Pneumonia: Pneumonia type: due to unspecified organism Laterality: unspecified laterality Lung location: unspecified part of lung Qualified Codes: J18.9 - Pneumonia, unspecified organism ZACH CLAUDIO MD Nov 23, 2017 07:28
[2017-11-23 07:53] VITALS: BP 129/80
[2017-11-23] MEDS: SODIUM CHLORIDE 1 GR TAB PO SCH (08:40)
[2017-11-23] MEDS: DOCUSATE SODIUM 100 MG CAP PO SCH (08:41)
[2017-11-23] MEDS: PANTOPRAZOLE SOD 40 MG TABEC PO SCH (08:42)
[2017-11-23] MEDS: DIVALPROEX SOD ER 500 MG TABSR PO SCH (08:42)
[2017-11-23] MEDS: POLYETHYLENE GLYCOL 17 GM PKT PO SCH (08:43)
[2017-11-23] MEDS: ENOXAPARIN 40 MG/0.4ML SYR SC SCH (08:43)
[2017-11-23 10:04] VITALS: BP 145/99
== END 2017-11-23 11:00 | disposition home health service (06) | DRG 335 ==
LOC: ER 06:57 → MED 10:28
PROVIDERS: ADMIT Surgery; ATTEND Surgery
PROC: 0D9670Z Drainage of Stomach with Drainage Device, Via Natural or Artificial Opening (ICD-10-PCS; 2017-10-04)
PROC: 0W9J4ZZ Drainage of Pelvic Cavity, Percutaneous Endoscopic Approach (ICD-10-PCS; 2017-10-07)
PROC: 0DN84ZZ Release Small Intestine, Percutaneous Endoscopic Approach (ICD-10-PCS; principal; 2017-10-07 17:16)
PROC: 02HV33Z Insertion of Infusion Device into Superior Vena Cava, Percutaneous Approach (ICD-10-PCS; 2017-10-11)
PROC: B548ZZA Ultrasonography of Superior Vena Cava, Guidance (ICD-10-PCS; 2017-10-11)
PROC: 3E0436Z Introduction of Nutritional Substance into Central Vein, Percutaneous Approach (ICD-10-PCS; 2017-10-11)
DX: K56.51 Intestinal adhesions [bands], with partial obstruction (principal); J18.9 Pneumonia, unspecified organism; C20 Malignant neoplasm of rectum; F31.89 Other bipolar disorder; E87.1 Hypo-osmolality and hyponatremia; E46 Unspecified protein-calorie malnutrition; F17.210 Nicotine dependence, cigarettes, uncomplicated; F42.9 Obsessive-compulsive disorder, unspecified; R33.9 Retention of urine, unspecified; D63.0 Anemia in neoplastic disease; R09.02 Hypoxemia; E88.09 Other disorders of plasma-protein metabolism, not elsewhere classified; R00.0 Tachycardia, unspecified; K56.0 Paralytic ileus; K43.5 Parastomal hernia without obstruction or gangrene; Z93.3 Colostomy status; Z68.21 Body mass index [BMI] 21.0-21.9, adult; Z85.828 Personal history of other malignant neoplasm of skin; Z92.3 Personal history of irradiation; Z92.21 Personal history of antineoplastic chemotherapy; Z88.0 Allergy status to penicillin
CPT/HCPCS: 36415; 36416; 36569; 71045; 74018; 74022; 74177; 74250; 76937; 80164; 80202; 81001; 82040; 82247; 82248; 82310; 82374; 82435; 82565; 82947; 82948; 83690; 83735; 84075; 84100; 84132; 84155; 84295; 84443; 84450; 84460; 84520; 85025; 85027; 85610; 85730; 86850; 86900; 86901; 87040; 87088; 93005; 94667; 94668; 96361; 96365; 96375; 97161; 97166; 99285; A4406; C1751; C9113; J0131; J0743; J1100; J1170; J1364; J1450; J1644; J1650; J1815; J1885; J1940; J2001; J2060; J2405; J2543; J2704; J2795; J3010; J3370; J3480; J3490; J7030; J7040; J7050; J7120; Q9967

== ENCOUNTER 2017-12-05 07:51 | Emergency (ER) | payer MEDICAID ==
[2017-09-11 12:11] VITALS: Wt 63.6 kg
[~2017-12-05 07:51] MED LIST changes: -LITH300T18 PO
[2017-12-05] MEDS ORDERED: NS(*) 0.9% 1000 ML BAG 1,000 ML IV ONE (08:05)
[2017-12-05] MEDS ORDERED: LITH300T18 PO (08:34)
[2017-12-05 08:41] LABS: PLATELET COUNT, AUTOMATED 713 K/uL (150-450)
[2017-12-05 09:11] VITALS: BP 125/69
--- NOTE | 2017-12-05 09:11 | ER Report ---
History and Physical Time Seen By MD: 08:00 Hx. of Stated Complaint: SEIZURE LIKE ACTIVITY, PALE SWEATY, STATES HIS WHOLE BODY HURTS HPI/ROS Multiple medical problems with recent SBO and prolonged hospitalization. Was recently taken off Zyprexa, and placed on lithium last week. Mom says he was smoking cigarette butts out of the ashtrays at the house when he started to have upper extremity shaking. He was talking during the episodes per mom and paramedics. No trauma. No fever/chills. No abdominal pain. Remainder of the 14 system rev: Yes Allergies: Coded Allergies: Penicillins (Verified Allergy, Unknown, 10/04/17) Home Meds Reported Medications [place] Carbonate (LITHIUM CARBONATE) 300 Mg Tablet, 300 MG PO 12/05/17 Divalproex Sodium (DEPAKOTE) 500 Mg Tablet.dr, 1000 MG PO QHS, TAB 11/06/16 Divalproex Sodium (DEPAKOTE) 500 Mg Tablet.dr, 500 MG PO QAM, TAB 11/06/16 Unable To Obtain Past Medical: Unable to Obtain/Update Reviewed Nurses Notes: Yes Old Medical Records Reviewed: Yes Hx Smoking: Yes (1 PPD X 30 YRS ) Smoking Status: Heavy Tobacco Smoker Exposure to Second Hand Smoke?: No Hx Substance Use Disorder: Yes (Pt unwilling to provide additional information) Hx Alcohol Use: Yes Constitutional Vital Sign - Last 24 Hours 12/05/17 12/05/17 12/05/17 12/05/17 07:51 07:53 07:57 07:59 Temp 98.3 Pulse ??? 128 Resp 28 B/P (MAP) 135/81 131/87 (102) 135/81 (99) Pulse Ox 97 O2 Delivery Room Air 12/05/17 12/05/17 12/05/17 12/05/17 08:06 08:21 08:30 08:36 Pulse 122 124 117 Resp 25 29 27 B/P (MAP) 118/75 (89) Pulse Ox 95 90 12/05/17 12/05/17 08:51 09:00 Pulse 116 Resp 25 B/P (MAP) 131/124 (126) Pulse Ox 91 Physical Exam General Appearance: The patient is alert, has no immediate need for airway protection and no current signs of toxicity. Eyes: Pupils equal and round no injection. Respiratory: Chest is non tender, lungs are clear to auscultation. Cardiac: regular rate and rhythm Gastrointestinal: Abdomen is soft and non tender, no masses, colostomy in place Neck: Neck is supple and non tender. Extremities have full range of motion and are non tender. Skin: No rashes or lesions. DIFFERENTIAL DIAGNOSIS: After history and physical exam differential diagnosis was considered for lithium toxicity, seizure, trauma, hyponatremia, infection Medical Decision Making Data Points Result Diagram: 12/05/17 0830 12/05/17 0830 Laboratory Hematology Test 12/05/17 08:30 Red Blood Count 3.23 M/uL (4.00-5.60) Mean Corpuscular Volume 87.2 fL (80.0-96.0) Mean Corpuscular Hemoglobin 29.0 pg (26.0-33.0) Mean Corpuscular Hemoglobin Concent 33.3 g/dL (32.0-36.0) Red Cell Distribution Width 17.9 % (11.5-14.5) Mean Platelet Volume 7.0 fL (7.2-11.1) Neutrophils (%) (Auto) 86.5 % (39.4-72.5) Lymphocytes (%) (Auto) 5.4 % (17.6-49.6) Monocytes (%) (Auto) 7.5 % (4.1-12.4) Eosinophils (%) (Auto) 0.2 % (0.4-6.7) Basophils (%) (Auto) 0.4 % (0.3-1.4) Nucleated RBC Relative Count (auto) 0.0 /100WBC Neutrophils # (Auto) 10.6 K/uL (2.0-7.4) Lymphocytes # (Auto) 0.7 K/uL (1.3-3.6) Monocytes # (Auto) 0.9 K/uL (0.3-1.0) Eosinophils # (Auto) 0.0 K/uL (0.0-0.5) Basophils # (Auto) 0.1 K/uL (0.0-0.1) Nucleated RBC Absolute Count (auto) 0.00 K/uL Peripheral Blood Smear Yes Y/N Sodium Level 130 mmol/L (137-145) Potassium Level 4.3 mmol/L (3.5-5.0) Chloride Level 96 mmol/L (98-107) Carbon Dioxide Level 18 mmol/L (22-30) Blood Urea Nitrogen 7 mg/dl (9-21) Creatinine 0.70 mg/dl (0.66-1.25) Glomerular Filtration Rate Calc > 60.0 Random Glucose 143 mg/dl (75-110) Calcium Level 8.4 mg/dl (8.4-10.2) Total Bilirubin 0.3 mg/dl (0.2-1.3) Aspartate Amino Transf (AST/SGOT) 15 U/L (0-35) Alanine Aminotransferase (ALT/SGPT) 15 U/L (0-56) Alkaline Phosphatase 60 U/L (0-126) Total Protein 5.6 g/dl (6.3-8.2) Albumin 3.0 g/dl (3.5-5.0) Valproic Acid (Depakene) Level 58.1 ug/ml [place] Level 0.6 mmol/L (0.6-1.2) Chemistry Test 12/05/17 08:30 White Blood Count 12.2 k/uL (4.5-11.0) Red Blood Count 3.23 M/uL (4.00-5.60) Hemoglobin 9.4 g/dL (14.0-18.0) Hematocrit 28.2 % (42.0-52.0) Mean Corpuscular Volume 87.2 fL (80.0-96.0) Mean Corpuscular Hemoglobin 29.0 pg (26.0-33.0) Mean Corpuscular Hemoglobin Concent 33.3 g/dL (32.0-36.0) Red Cell Distribution Width 17.9 % (11.5-14.5) Platelet Count 713 K/uL (150-450) Mean Platelet Volume 7.0 fL (7.2-11.1) Neutrophils (%) (Auto) 86.5 % (39.4-72.5) Lymphocytes (%) (Auto) 5.4 % (17.6-49.6) Monocytes (%) (Auto) 7.5 % (4.1-12.4) Eosinophils (%) (Auto) 0.2 % (0.4-6.7) Basophils (%) (Auto) 0.4 % (0.3-1.4) Nucleated RBC Relative Count (auto) 0.0 /100WBC Neutrophils # (Auto) 10.6 K/uL (2.0-7.4) Lymphocytes # (Auto) 0.7 K/uL (1.3-3.6) Monocytes # (Auto) 0.9 K/uL (0.3-1.0) Eosinophils # (Auto) 0.0 K/uL (0.0-0.5) Basophils # (Auto) 0.1 K/uL (0.0-0.1) Nucleated RBC Absolute Count (auto) 0.00 K/uL Peripheral Blood Smear Yes Y/N Glomerular Filtration Rate Calc > 60.0 Calcium Level 8.4 mg/dl (8.4-10.2) Total Bilirubin 0.3 mg/dl (0.2-1.3) Aspartate Amino Transf (AST/SGOT) 15 U/L (0-35) Alanine Aminotransferase (ALT/SGPT) 15 U/L (0-56) Alkaline Phosphatase 60 U/L (0-126) Total Protein 5.6 g/dl (6.3-8.2) Albumin 3.0 g/dl (3.5-5.0) Valproic Acid (Depakene) Level 58.1 ug/ml [place] Level 0.6 mmol/L (0.6-1.2) Toxicology Test 12/05/17 08:30 Valproic Acid (Depakene) Level 58.1 ug/ml [place] Level 0.6 mmol/L (0.6-1.2) ED Course/Re-evaluation ED Course Does not sounds like an actual seizure. [place] level not high. Not hyponatremia. No abdominal pain or nausea/vomiting. No fever/chills. Depakote level pending. Behavioral vs. nicotine??? Will follow up this week with PCM. Decision to Disposition Date: Dec 05, 2017 Decision to Disposition Time: 09:06 Depart Departure Latest Vital Signs Vital Signs Date Time Temp Pulse Resp B/P (MAP) Pulse Ox O2 Delivery O2 Flow Rate FiO2 12/05/17 09:00 131/124 (126) 12/05/17 08:51 116 25 91 12/05/17 07:53 98.3 Room Air Impression: Primary Impression: Twitching Condition: Improved Disposition: HOME OR SELF-CARE Additional Instructions: Take your medications as directed. Otherwise follow up with your primary physician next week. ТАТЬЯНА BREWSTER MD Dec 05, 2017 09:11
== END 2017-12-05 09:22 | disposition home or self-care (01) ==
LOC: ER 08:03
DX: R25.3 Fasciculation (principal)
CPT/HCPCS: 80164; 80178; 85025; 96360; 99283; J7030; 82040; 82247; 82310; 82374; 82435; 82565; 82947; 84075; 84132; 84155; 84295; 84450; 84460; 84520

== ENCOUNTER → 2017-12-05 | Outpatient (CLI) | payer MEDICAID ==
[2017-09-11 12:11] VITALS: BMI 24.0
[~2017-12-05] MED LIST changes: +LITH300T18 PO
== END ==
LOC: AMB 07:37
PROVIDERS: ATTEND Nurse Practitioner
DX: R56.9 Unspecified convulsions (principal); R25.1 Tremor, unspecified; R53.83 Other fatigue; R06.82 Tachypnea, not elsewhere classified
CPT/HCPCS: A0425; A0427

== ENCOUNTER 2017-12-14 08:06 | Emergency (ER) | payer MEDICAID ==
[2017-09-11 12:11] VITALS: Wt 65.8 kg
[2017-12-14] MEDS ORDERED: THIAMINE HCL 200 MG/2 ML INJ IVP ONE (08:10)
[2017-12-14] MEDS ORDERED: LORazepam 2 MG/ML VIAL IVP ONE ×2 (08:10→08:45)
[2017-12-14] MEDS ORDERED: DIPHTH/TETANUS/ACEL. PERTUSSIS IM ONLY ONE (08:20)
--- NOTE | 2017-12-14 08:22 | ER Report ---
History and Physical Time Seen By MD: 08:21 Hx. of Stated Complaint: PT PRESENTS VIA AMBULANCE WITH A VAGUE HX OF POSSIBLY FALLING OUT OF BED AND HITTING A TABLE. PT HAS SUSTAINED ABRASION AND LAC TO R FOREHEAD, AND ABRASION TO R CHEST. C/O BACK PAIN. WHEN ASKED IF HE HAD A SEIZURE, HE STATES HE IS HAVING ONE NOW. HIS ARMS ARE SHAKING , HE IS TACHYPNEIC, AND DIAPHORETIC HPI/ROS CHIEF COMPLAINT: Fall, altered mental status, shaking HISTORY OF PRESENT ILLNESS: Patient is a 57-year-old male with a complex past medical history. Briefly patient has history of obsessive-compulsive disorder and bipolar disorder. Patient is on valproic acid and lithium. Recently had a prolonged admission from October 04 through November 23 for an ileus. He has a past medical history for rectal cancer received both chemotherapy and radiation therapy prior to surgery and colectomy. Currently has a colostomy that appears to be functioning. Patient has a past history of water intoxication and hyponatremia. Patient was seen on December 05 for an episode of shaking and was seen in the emergency department at that time. His evaluation was essentially unremarkable the shaking resolved. Sodium was 130 at that time. Patient was swimming discharge home with instructions to follow-up with primary care provider. Patient himself is a poor historian. Per EMS patient potentially fell out of bed striking his right side of his forehead and right ribs against a bedside table. It is unclear whether there was a true seizure. The patient during initial evaluation was actively shaking of both arms, but he was awake and alert stating "I'm having a seizure". Patient denies any alcohol or drug use. He denies drinking excessive amounts of water. Additional history was obtained from the mother who presented later during his admission and she states that he has been drinking quite a significant amount of water the last few days. He is complaining of body wide discomfort. He states that he "cannot see". He complains of pain in his orbits. He also complains of pain to the right anterior chest wall as well as abdominal pain. There is no history of fever or chills or cough. Ostomy site appears to be functioning according to patient. REVIEW OF SYSTEMS: Constitutional: No fever, no chills. Tremors Eyes: No discharge. I pain, "blindness" ENT: No sore throat. Cardiovascular: No chest pain, no palpitations. Respiratory: No cough, no shortness of breath. Right anterior chest wall pain Gastrointestinal: Diffuse abdominal pain history of colostomy Genitourinary: No hematuria. Musculoskeletal: No back pain. Neck pain status post fall Skin: No rashes. Neurological: Headache Allergies: Coded Allergies: Penicillins (Verified Allergy, Unknown, 10/04/17) Home Meds Reported Medications Davis Carbonate (LITHIUM CARBONATE) 300 Mg Tablet, 300 MG PO 12/05/17 Divalproex Sodium (DEPAKOTE) 500 Mg Tablet.dr, 1000 MG PO QHS, TAB 11/06/16 Divalproex Sodium (DEPAKOTE) 500 Mg Tablet.dr, 500 MG PO QAM, TAB 11/06/16 Past Medical/Surgical History Past medical history significant for hyperlipidemia, bipolar disorder, obsessive -compulsive disorder, history of tonsillectomy, appendectomy, parastomal hernia without obstruction history of rectal cancer and small bowel obstruction and prolonged ileus with admission from 10/04/17-11/23/17 status post colectomy. Patient states he is not receiving treatment currently for rectal cancer does unclear if he is in remission. 12/14/2017 10:06:31 am additional history obtained from the mother. Patient diagnosed with rectal cancer did receive chemotherapy and radiation therapy prior to surgery. Also has a history of obsessive liter drinking water. Hx Smoking: Yes (1 PPD X 30 YRS ) Smoking Status: Heavy Tobacco Smoker Exposure to Second Hand Smoke?: No Hx Substance Use Disorder: Yes (Pt unwilling to provide additional information) Hx Alcohol Use: Yes Constitutional Vital Sign - Last 24 Hours 12/14/17 12/14/17 12/14/17 12/14/17 08:06 08:07 08:10 08:11 Temp 98.2 Pulse 142 135 134 Resp 34 89 B/P (MAP) 179/94 179/94 (122) Pulse Ox 96 96 O2 Delivery Nasal Cannula 12/14/17 12/14/17 12/14/17 12/14/17 08:12 08:16 08:21 08:26 Pulse 137 128 129 Resp 103 108 106 B/P (MAP) 180/98 (125) Pulse Ox 97 94 93 12/14/17 12/14/17 12/14/17 12/14/17 08:30 08:31 08:36 08:41 Pulse 266 125 120 Resp 98 67 101 B/P (MAP) 162/95 (117) Pulse Ox 95 93 93 12/14/17 12/14/17 12/14/17 12/14/17 08:46 08:51 08:56 09:01 Pulse 117 110 110 102 Resp 26 12 58 24 Pulse Ox 93 92 90 93 12/14/17 12/14/17 12/14/17 12/14/17 09:11 09:16 09:31 09:46 Pulse 105 103 ? Resp 20 18 Pulse Ox 91 91 12/14/17 12/14/17 12/14/17 12/14/17 10:01 10:16 10:30 10:31 Pulse 96 90 93 Resp 19 20 23 B/P (MAP) 108/75 (86) 118/75 (89) Pulse Ox 95 98 97 12/14/17 12/14/17 10:36 11:00 Pulse 93 Resp 22 B/P (MAP) 124/76 (92) Pulse Ox 97 Intake and Output 12/14/17 12/14/17 12/15/17 15:00 23:00 07:00 Intake Total 4200 ml Output Total 850 ml Balance 3350 ml Physical Exam General/Constitutional: Patient is awake, alert, shaking stating that he is having a seizure Head: He has a 1 cm laceration to the right forehead that is linear. Bleeding is controlled. Eyes: Conjunctival clear, Pupils are 3 mm reactive to light with good consensual response. Patient will not follow instructions for extraocular muscle evaluation. Patient has blink response to a confrontation test bilaterally. Ears:External canals are clear. Tympanic membranes are clear with normal landmarks and light reflex. Nares: No rhinorrhea or bleeding. Turbinates are pink and moist. Oropharyngeal: Mucous membranes are moist. There is no pharyngeal erythema or exudate. There are no palatal petechiae. Uvula is midline and symmetrical. Neck: In c-collar Cardiovascular: Heart is tachycardic with regular rhythm. Pulmonary: Lungs are clear to auscultation bilaterally. There are no wheezes, rales, or rhonchi. Chest rise is symmetrical Abdomen: Soft, diffusely tender. Patient has a colostomy bag with stool and a pink appearing mucosa to the ostomy site. Extremities: No gross deformities, No peripheral cyanosis. Able to move all 4 extremities. Patient having flexion with shaking. Neuro: Alert and oriented X3, patient is able to answer questions in a purposeful manner. Unable to test cranial nerves 3, 4 and 6 secondary to shaking. All of her remaining cranial nerves seem to be intact and symmetrical. Skin: No rashes, skin is warm dry and well perfused. Medical Decision Making Data Points Result Diagram: 12/14/17 0843 12/14/17 0800 Laboratory Hematology Test 12/14/17 00:00 12/14/17 08:00 12/14/17 08:52 12/14/17 09:20 Total Creatine Kinase 679 U/L (55-170) Red Blood Count 3.79 M/uL (4.00-5.60) Mean Corpuscular Volume 87.4 fL (80.0-96.0) Mean Corpuscular Hemoglobin 28.5 pg (26.0-33.0) Mean Corpuscular Hemoglobin Concent 32.7 g/dL (32.0-36.0) Red Cell Distribution Width 17.7 % (11.5-14.5) Mean Platelet Volume 7.0 fL (7.2-11.1) Neutrophils (%) (Auto) 90.2 % (39.4-72.5) Lymphocytes (%) (Auto) 5.6 % (17.6-49.6) Monocytes (%) (Auto) 3.7 % (4.1-12.4) Eosinophils (%) (Auto) 0.2 % (0.4-6.7) Basophils (%) (Auto) 0.3 % (0.3-1.4) Nucleated RBC Relative Count (auto) 0.0 /100WBC Neutrophils # (Auto) 23.6 K/uL (2.0-7.4) Lymphocytes # (Auto) 1.5 K/uL (1.3-3.6) Monocytes # (Auto) 1.0 K/uL (0.3-1.0) Eosinophils # (Auto) 0.0 K/uL (0.0-0.5) Basophils # (Auto) 0.1 K/uL (0.0-0.1) Nucleated RBC Absolute Count (auto) 0.00 K/uL Peripheral Blood Smear Yes Y/N Prothrombin Time 13.3 seconds (12.0-14.4) Prothromb Time International Ratio 1.01 Activated Partial Thromboplast Time 34 seconds (23-35) Sodium Level 118 mmol/L (137-145) Potassium Level 6.6 mmol/L (3.5-5.0) Chloride Level 83 mmol/L (98-107) Carbon Dioxide Level 13 mmol/L (22-30) Blood Urea Nitrogen 9 mg/dl (9-21) Creatinine 1.30 mg/dl (0.66-1.25) Glomerular Filtration Rate Calc 56.7 Random Glucose 107 mg/dl (75-110) Lactate 11.6 mmol/L (0.7-2.1) Calcium Level 9.4 mg/dl (8.4-10.2) Magnesium Level 2.0 mg/dl (1.7-2.2) Total Bilirubin 0.4 mg/dl (0.2-1.3) Aspartate Amino Transf (AST/SGOT) 260 U/L (0-35) Alanine Aminotransferase (ALT/SGPT) 184 U/L (0-56) Alkaline Phosphatase 116 U/L (0-126) Ammonia 35 UMOL/L (9-33) Troponin I 0.139 ng/ml Total Protein 6.4 g/dl (6.3-8.2) Albumin 3.8 g/dl (3.5-5.0) Salicylates Level < 10 mg/L Salicylate Last Dose Date unk Acetaminophen Level < 10 ug/ml Valproic Acid (Depakene) Level 34.0 ug/ml Davis Level 0.5 mmol/L (0.6-1.2) Serum Alcohol < 10 mg/dl Blood Gas Puncture Site Right radial Blood Gas Patient Temperature 98.2 DEGREES Arterial Blood pH 7.42 (7.35-7.45) Arterial Blood Partial Pressure CO2 25 mmHg (32-37) Arterial Blood Partial Pressure O2 65 mmHg (60-80) Arterial Blood HCO3 16 mmol/L (20-26) Arterial Blood Oxygen Saturation 93 % (92-100) Arterial Blood Base Excess -8.0 mmol/L Aidan Test Acceptable Oxygen Liters/Minute Room air Urine Color Straw Urine Clarity Clear Urine pH 7.0 pH (4.8-9.5) Urine Specific [place] 1.002 Urine Protein Negative mg/dL (NEGATIVE) Urine Glucose (UA) Negative mg/dL (NEGATIVE) Urine Ketones Negative mg/dL (NEGATIVE) Urine Blood Moderate (NEGATIVE) Urine Nitrite Negative (NEGATIVE) Urine Bilirubin Negative (NEGATIVE) Urine Urobilinogen Negative mg/dL (0.2-1.9) Urine Leukocyte Esterase Negative (NEGATIVE) Urine RBC <1 /HPF (0-2/HPF) Urine WBC 2 /HPF (0-5/HPF) Urine Squamous Epithelial Cells None /LPF (NONE-FEW) Urine Bacteria Negative /HPF (NONE-FEW) Urine Mucus None /HPF (NONE-FEW) Urine Opiates Screen Negative Urine Barbiturates Screen Negative Ur Tricyclic Antidepressants Screen Negative Urine Phencyclidine Screen Negative Urine Amphetamines Screen Negative Urine Benzodiazepines Screen Negative Urine Cocaine Screen Negative Urine Cannabinoids Screen Negative Chemistry Test 12/14/17 00:00 12/14/17 08:00 12/14/17 08:43 12/14/17 08:52 Total Creatine Kinase 679 U/L (55-170) White Blood Count 26.1 k/uL (4.5-11.0) Red Blood Count 3.79 M/uL (4.00-5.60) Hemoglobin 10.8 g/dL (14.0-18.0) Hematocrit 33.1 % (42.0-52.0) Mean Corpuscular Volume 87.4 fL (80.0-96.0) Mean Corpuscular Hemoglobin 28.5 pg (26.0-33.0) Mean Corpuscular Hemoglobin Concent 32.7 g/dL (32.0-36.0) Red Cell Distribution Width 17.7 % (11.5-14.5) Mean Platelet Volume 7.0 fL (7.2-11.1) Neutrophils (%) (Auto) 90.2 % (39.4-72.5) Lymphocytes (%) (Auto) 5.6 % (17.6-49.6) Monocytes (%) (Auto) 3.7 % (4.1-12.4) Eosinophils (%) (Auto) 0.2 % (0.4-6.7) Basophils (%) (Auto) 0.3 % (0.3-1.4) Nucleated RBC Relative Count (auto) 0.0 /100WBC Neutrophils # (Auto) 23.6 K/uL (2.0-7.4) Lymphocytes # (Auto) 1.5 K/uL (1.3-3.6) Monocytes # (Auto) 1.0 K/uL (0.3-1.0) Eosinophils # (Auto) 0.0 K/uL (0.0-0.5) Basophils # (Auto) 0.1 K/uL (0.0-0.1) Nucleated RBC Absolute Count (auto) 0.00 K/uL Peripheral Blood Smear Yes Y/N Prothrombin Time 13.3 seconds (12.0-14.4) Prothromb Time International Ratio 1.01 Activated Partial Thromboplast Time 34 seconds (23-35) Glomerular Filtration Rate Calc 56.7 Lactate 11.6 mmol/L (0.7-2.1) Calcium Level 9.4 mg/dl (8.4-10.2) Magnesium Level 2.0 mg/dl (1.7-2.2) Total Bilirubin 0.4 mg/dl (0.2-1.3) Aspartate Amino Transf (AST/SGOT) 260 U/L (0-35) Alanine Aminotransferase (ALT/SGPT) 184 U/L (0-56) Alkaline Phosphatase 116 U/L (0-126) Ammonia 35 UMOL/L (9-33) Troponin I 0.139 ng/ml Total Protein 6.4 g/dl (6.3-8.2) Albumin 3.8 g/dl (3.5-5.0) Salicylates Level < 10 mg/L Salicylate Last Dose Date unk Acetaminophen Level < 10 ug/ml Valproic Acid (Depakene) Level 34.0 ug/ml Davis Level 0.5 mmol/L (0.6-1.2) Serum Alcohol < 10 mg/dl Platelet Count 1038 K/uL (150-450) Blood Gas Puncture Site Right radial Blood Gas Patient Temperature 98.2 DEGREES Arterial Blood pH 7.42 (7.35-7.45) Arterial Blood Partial Pressure CO2 25 mmHg (32-37) Arterial Blood Partial Pressure O2 65 mmHg (60-80) Arterial Blood HCO3 16 mmol/L (20-26) Arterial Blood Oxygen Saturation 93 % (92-100) Arterial Blood Base Excess -8.0 mmol/L Aidan Test Acceptable Oxygen Liters/Minute Room air Test 12/14/17 09:20 Urine Color Straw Urine Clarity Clear Urine pH 7.0 pH (4.8-9.5) Urine Specific [place] 1.002 Urine Protein Negative mg/dL (NEGATIVE) Urine Glucose (UA) Negative mg/dL (NEGATIVE) Urine Ketones Negative mg/dL (NEGATIVE) Urine Blood Moderate (NEGATIVE) Urine Nitrite Negative (NEGATIVE) Urine Bilirubin Negative (NEGATIVE) Urine Urobilinogen Negative mg/dL (0.2-1.9) Urine Leukocyte Esterase Negative (NEGATIVE) Urine RBC <1 /HPF (0-2/HPF) Urine WBC 2 /HPF (0-5/HPF) Urine Squamous Epithelial Cells None /LPF (NONE-FEW) Urine Bacteria Negative /HPF (NONE-FEW) Urine Mucus None /HPF (NONE-FEW) Urine Opiates Screen Negative Urine Barbiturates Screen Negative Ur Tricyclic Antidepressants Screen Negative Urine Phencyclidine Screen Negative Urine Amphetamines Screen Negative Urine Benzodiazepines Screen Negative Urine Cocaine Screen Negative Urine Cannabinoids Screen Negative Coagulation Test 12/14/17 08:00 Prothrombin Time 13.3 seconds Prothromb Time International Ratio 1.01 Activated Partial Thromboplast Time 34 seconds Toxicology Test 12/14/17 08:00 12/14/17 09:20 Salicylates Level < 10 mg/L Salicylate Last Dose Date unk Acetaminophen Level < 10 ug/ml Valproic Acid (Depakene) Level 34.0 ug/ml Davis Level 0.5 mmol/L (0.6-1.2) Serum Alcohol < 10 mg/dl Urine Opiates Screen Negative Urine Barbiturates Screen Negative Ur Tricyclic Antidepressants Screen Negative Urine Phencyclidine Screen Negative Urine Amphetamines Screen Negative Urine Benzodiazepines Screen Negative Urine Cocaine Screen Negative Urine Cannabinoids Screen Negative Urinalysis Test 12/14/17 09:20 Urine Color Straw Urine Clarity Clear Urine pH 7.0 pH (4.8-9.5) Urine Specific [place] 1.002 Urine Protein Negative mg/dL (NEGATIVE) Urine Glucose (UA) Negative mg/dL (NEGATIVE) Urine Ketones Negative mg/dL (NEGATIVE) Urine Blood Moderate (NEGATIVE) Urine Nitrite Negative (NEGATIVE) Urine Bilirubin Negative (NEGATIVE) Urine Urobilinogen Negative mg/dL (0.2-1.9) Urine Leukocyte Esterase Negative (NEGATIVE) Urine RBC <1 /HPF (0-2/HPF) Urine WBC 2 /HPF (0-5/HPF) Urine Squamous Epithelial Cells None /LPF (NONE-FEW) Urine Bacteria Negative /HPF (NONE-FEW) Urine Mucus None /HPF (NONE-FEW) Microbiology Microbiology Date/Time Source Procedure Growth Status 12/14/17 09:00 Blood Peripheral Draw Blood Culture - Preliminary NO GROWTH SO FAR, SET LATE. REINCUBATED Resulted 12/14/17 08:43 Blood Peripheral Draw Blood Culture - Preliminary NO GROWTH SO FAR, SET LATE. REINCUBATED Resulted EKG/Imaging EKG Interpretation Initial EKG on arrival was difficult to read due to shaking and poor baseline but the read was sinus tachycardia with 132 bpm. A repeat EKG was done at 9:04 AM after the patient was given Ativan shaking ceased. This shows sinus tachycardia with a ventricular rate of 102 bpm normal PA interval and normal QRS no significant ST segment or T-wave abnormalities were noted. Monitor Interpretation: Sinus Tachycardia Imaging FACILITY: [facility] [place] PATIENT NAME: Matthew Roth : 1960 MR: [id number] V: [id number] EXAM DATE: ORDERING PHYSICIAN: RAMY MEYER TECHNOLOGIST: Location: [facility] [place] Patient: Matthew Roth : 1960 Visit/Account:[id number] Date of Sevice: 12/14/2017 Exam type: RIBS RIGHT History: fall Comparison: None. Findings: There are nondisplaced fractures of the anterolateral aspect of the right seventh eighth and ninth ribs. There is no gross evidence of a pneumothorax or pleural effusion. There suggestion of compression fractures in the lower thoracic spine of indeterminate age IMPRESSION: 1. No suspicious fractures of the anterolateral aspect of the right seventh, eighth and ninth ribs Suggestion of compression fractures of lower thoracic spine of indeterminate age Report Dictated By: Keena Herrera MD at 12/14/2017 10:11 AM Report E-Signed By: Keena Herrera MD at 12/14/2017 10:15 AM WSN:AMICIVN FACILITY: [facility] [place] PATIENT NAME: Matthew Roth : 1960 MR: [id number] V: [id number] EXAM DATE: ORDERING PHYSICIAN: RAMY MEYER TECHNOLOGIST: Location: [facility] [place] Patient: Matthew Roth : 1960 Visit/Account:[id number] Date of Sevice: 12/14/2017 Exam type: CHEST PA AND LAT History: fall Comparison: September 15, 2017. Findings: The lungs are free of acute effusions, infiltrates or edema. The cardiac silhouette is normal in size. There is no evidence of a pneumothorax or pneumomediastinum IMPRESSION: 1. No acute cardiopulmonary process is seen Report Dictated By: Keena Herrera MD at 12/14/2017 10:07 AM Report E-Signed By: Keena Herrera MD at 12/14/2017 10:11 AM WSN:AMICIVN FACILITY: [facility] [place] PATIENT NAME: Matthew Roth : 1960 MR: [id number] V: [id number] EXAM DATE: ORDERING PHYSICIAN: RAMY MEYER TECHNOLOGIST: Location: [facility] [place] Patient: Matthew Roth : 1960 Visit/Account:[id number] Date of Sevice: 12/14/[address] scan without contrast HISTORY: Fall COMPARISONS: None TECHNIQUE: Non-contrast head CT was performed with sagittal and coronal reformations. One of the following dose optimization techniques was utilized in the performance of this exam: automated exposure control; adjustment of the mA and/ or kV according to patient size; or use of iterative reconstruction technique. Specific details can be referenced in the facility's radiology CT exam operational policy. FINDINGS: There is no intracranial hemorrhage, hydrocephalus or midline shift. The basal cisterns, de luna-white differentiation, and convexity sulci are maintained. Right periorbital soft tissue swelling noted. Right frontal scalp gas in keeping with laceration. Mild patchy white matter hypoattenuation in keeping with chronic small vessel ischemic change. The mastoid air cells are clear. The paranasal sinuses are clear. The osseous structures are normal. IMPRESSION: No acute intracranial abnormality. Right periorbital soft tissue swelling and right frontal scalp gas in keeping with laceration. Report Dictated By: Vic Angulo MD at 12/14/2017 10:26 AM Report E-Signed By: Vic Angulo MD at 12/14/2017 10:29 AM WSN:DS2HI FACILITY: [facility] [place] PATIENT NAME: Matthew Roth : 1960 MR: [id number] V: [id number] EXAM DATE: ORDERING PHYSICIAN: RAMY MEYER TECHNOLOGIST: Location: [facility] [place] Patient: Matthew Roth : 1960 Visit/Account:[id number] Date of Sevice: 12/14/2017 EXAMINATION: CT Cervical spine without intravenous contrast HISTORY: Fall COMPARISON: None. TECHNIQUE: Axial images were obtained from the skull base through the upper thoracic spine without IV contrast administration. Coronal and sagittal reformatted images were generated from the axial source data. One of the following dose optimization techniques was utilized in the performance of this exam: automated exposure control; adjustment of the mA and/ or kV according to patient size; or use of iterative reconstruction technique. Specific details can be referenced in the facility's radiology CT exam operational policy. FINDINGS: Vertebral bodies and posterior elements: Normal vertebral body heights. No fracture or osseous destruction. Multilevel facet arthropathy. Alignment: Slight retrolisthesis of C5 on C6. Disc Spaces: Multilevel anterior endplate spurring. Mild C5-6 disc space degeneration. Multilevel degenerative foraminal narrowing. Soft tissues: Subcentimeter right thyroid nodule statistically represents a benign adenoma. Visualized upper chest: Normal. IMPRESSION: No acute fracture or acute abnormality. Report Dictated By: Vic Angulo MD at 12/14/2017 10:29 AM Report E-Signed By: Vic Angulo MD at 12/14/2017 10:33 AM WSN:[email or web address] ED Course/Re-evaluation Clinical Indication for ER IV: Hydration, IV Access ED Course 12/14/2017 10:07:09 am tremors seemed to respond quite nicely to Ativan. Patient has received a total of 3 mg of Ativan IV. This had the effect of decreasing his heart rate patient is no longer having tremors and is resting comfortably. Additional history obtained from the mother states the patient does have obsessive-compulsive disorder and frequently drinks excessive amounts of water. Patient with elevated white count and lactate there is concerns about potential infection at this point although no source has been clearly identified. We will treat along the sepsis protocol giving a 30 mL/kg bolus of normal saline we will start broad-spectrum antibiotics after cultures of blood and urine were obtained. We will perform CT scan of the head C-spine and abdomen and pelvis. We will get x-ray of the chest and ribs. Urinalysis confirms suspected water intoxication with low specific gravity. I did discuss with mother the need for possible transport to higher level of care given the patient's elevated cardiac enzymes. Initial EKG was difficult to interpret due to shaking and poor baseline repeat after Ativan shows sinus tachycardia with a ventricular rate of 102 bpm normal QRS and PA intervals as well as QT interval. No significant ST segment changes were noted no T-wave abnormalities were noted. Doubt elevated troponin is secondary to cardiac cause but maybe related to more of a systemic inflammatory response syndrome. 12/14/2017 10:56:18 am c-collar removed, CT of head and cervical spine are unremarkable. Chest x-ray shows multiple right-sided rib fractures, CT scan of the abdomen and pelvis reveals partial small bowel obstruction with increasing pain or colostomy hernia. There is also noted a left greater tuberosity hip fracture with displacement. There might be a concern for a a greater trochanteric fracture as prior study did not show linear density which is now apparent. Plan at this time will be transferred to higher level of care awaiting discussion with artist model. 12/14/2017 11:14:49 am Center. History physical exam recent past medical history as well as emergency department course were discussed. Patient with with multiple medical issues as well as suspected psychiatric issues. When this time will be transfer to [facility] [place] to [place]. Patient's mother is in agreement at this time. Dr. William requested that we treat the elevated potassium with insulin and glucose. We will give 10 units of IV insulin , 25 g of dextrose, 40 mg of IV Lasix we will also add a CPK at this time. Procedure 12/14/2017 10:31:37 am Procedure: Laceration repair. Verbal consent was obtained from the patient. The 1.5 laceration on the right forehead was cleansed, draped and explored to its base with a gloved finger. There were no deep structures involved. The wound was repaired with Dermabond. The wound repair was simple. The procedure was performed by myself. Decision to Disposition Date: Dec 14, 2017 Decision to Disposition Time: 11:13 Critical Care Time 12/14/2017 11:16:00 am please see ED course notes for specifics total critical care time 99 minutes excluding procedures Depart Departure Latest Vital Signs Vital Signs Date Time Temp Pulse Resp B/P (MAP) Pulse Ox O2 Delivery O2 Flow Rate FiO2 12/14/17 11:00 124/76 (92) 12/14/17 10:36 93 22 97 12/14/17 08:07 98.2 Nasal Cannula Impression: Primary Impression: Ribs, multiple fractures Additional Impressions: Fracture of greater trochanter of left femur Partial small bowel obstruction Hyponatremia SIRS (systemic inflammatory response syndrome) Water intoxication syndrome Condition: Improved Disposition: XFER TO [facility] (to DR William, ICU at [facility]) Problem Qualifiers Primary Impression: Ribs, multiple fractures Encounter type: initial encounter Fracture type: closed Laterality: right Qualified Codes: S22.41XA - Multiple fractures of ribs, right side, initial encounter for closed fracture Additional Impressions: Fracture of greater trochanter of left femur Encounter type: initial encounter Fracture type: closed Fracture alignment : displaced Qualified Codes: S72.112A - Displaced fracture of greater trochanter of left femur, initial encounter for closed fracture RAMY MEYER MD Dec 14, 2017 08:22
[2017-12-14 08:28] LABS: PLATELET COUNT, AUTOMATED 1128 K/uL (150-450)
[2017-12-14] MEDS ORDERED: IOPAMIDOL 76% 75 ML INFUS BTL 75 ML ONE (08:37)
--- NOTE | 2017-12-14 08:40 | EKG ---
FACILITY: [facility] PATIENT NAME: RITO WALL : [id number] MR: [id number] V: [id number] EXAM DATE: ORDERING PHYSICIAN: RAMY MEYER TECHNOLOGIST: Test Reason : Shaking Blood Pressure : / mmHG Vent. Rate : 132 BPM Atrial Rate : 132 BPM P-R Int : 128 ms QRS Dur : 078 ms QT Int : 294 ms P-R-T Axes : 052 043 064 degrees QTc Int : 435 ms Sinus tachycardia Diffuse artifact - repeat if needed Borderline ECG Confirmed by ELKE REES ([id number]) on 12/14/2017 2:45:13 PM Referred By: Confirmed By:ELKE REES
[2017-12-14] MEDS ORDERED: metroNIDAZOLE* 500MG/100ML BAG 100 ML IVPB ONE (08:55)
[2017-12-14] MEDS ORDERED: NS 0.9% IV ONE (08:55)
[2017-12-14] MEDS ORDERED: CEFEPIME HCL 2 GM VIAL IVP ONE (08:55)
[2017-12-14] MEDS ORDERED: VANCOMYCIN 1 GM ADDVIAL 1 GM in NS(*) 0.9% 250 ML ADDVAN BAG 250 ML IVPB ONE (08:55)
[2017-12-14 09:04] LABS: INR 1.01
--- NOTE | 2017-12-14 09:11 | EKG ---
FACILITY: [facility] PATIENT NAME: RITO WALL : [id number] MR: [id number] V: [id number] EXAM DATE: ORDERING PHYSICIAN: RAMY MEYER TECHNOLOGIST: Test Reason : Repeat Blood Pressure : / mmHG Vent. Rate : 102 BPM Atrial Rate : 102 BPM P-R Int : 134 ms QRS Dur : 082 ms QT Int : 336 ms P-R-T Axes : 056 036 047 degrees QTc Int : 437 ms Sinus tachycardia No acute appearing findings noted Confirmed by ELKE REES ([id number]) on 12/14/2017 2:45:55 PM Referred By: Confirmed By:ELKE REES
--- NOTE | 2017-12-14 10:16 | RADIOLOGY IMAGING REPORT ---
FACILITY: [facility] [place] PATIENT NAME: Matthew Roth : 1960 MR: [id number] V: [id number] EXAM DATE: ORDERING PHYSICIAN: RAMY MEYER TECHNOLOGIST: Location: [facility] [place] Patient: Matthew Roth : 1960 Visit/Account:[id number] Date of Sevice: 12/14/2017 Exam type: CHEST PA AND LAT History: fall Comparison: September 15, 2017. Findings: The lungs are free of acute effusions, infiltrates or edema. The cardiac silhouette is normal in siz e. There is no evidence of a pneumothorax or pneumomediastinum IMPRESSION: 1. No acute cardiopulmonary process is seen Report Dictated By: Keena Herrera MD at 12/14/2017 10:07 AM Report E-Signed By: Keena Herrera MD at 12/14/2017 10:11 AM WSN:[email or web address]
--- NOTE | 2017-12-14 10:18 | RADIOLOGY IMAGING REPORT ---
FACILITY: [facility] PATIENT NAME: Matthew Roth : 1960 MR: [id number] V: [id number] EXAM DATE: ORDERING PHYSICIAN: RAMY MEYER TECHNOLOGIST: Location: [facility] [place] Patient: Matthew Roth : 1960 Visit/Account:[id number] Date of Sevice: 12/14/2017 Exam type: RIBS RIGHT History: fall Comparison: None. Findings: There are nondisplaced fractures of the anterolateral aspect of the right seventh eighth and ninth ri bs. There is no gross evidence of a pneumothorax or pleural effusion. There suggestion of compressi on fractures in the lower thoracic spine of indeterminate age IMPRESSION: 1. No suspicious fractures of the anterolateral aspect of the right seventh, eighth and ninth ribs Suggestion of compression fractures of lower thoracic spine of indeterminate age Report Dictated By: Keena Herrera MD at 12/14/2017 10:11 AM Report E-Signed By: Keena Herrera MD at 12/14/2017 10:15 AM WSN:[email or web address]
--- NOTE | 2017-12-14 10:34 | RADIOLOGY IMAGING REPORT ---
FACILITY: [facility] PATIENT NAME: Matthew Roth : 1960 MR: [id number] V: [id number] EXAM DATE: ORDERING PHYSICIAN: RAMY MEYER TECHNOLOGIST: Location: [facility] [place] Patient: Matthew Roth : 1960 Visit/Account:[id number] Date of Sevice: 12/14/2017 ADDENDUM #1 There is a comminuted fracture through the left greater trochanter with superior and posterior displa cement of the avulsed fracture fragments. There is a sclerotic oblique density traversing the intrat rochanteric region which is suspicious for nondisplaced intratrochanteric extension of the fracture. Report Dictated By: Keena Herrera MD at 12/14/2017 10:44 AM Report E-Signed By: Keena Herrera MD at 12/14/2017 10:51 AM ORIGINAL REPORT ABDOMEN/PELVIS WITH CONTRAST HISTORY: Fall, head and neck pain, history of hernia TECHNIQUE: Following administration of IV contrast contiguous axial images acquired through the abdom en/pelvis. Coronal and sagittal reformatting also performed. Dose Lowering Technique One of the following dose optimization techniques was utilized in the performance of this exam: Autom ated exposure control; adjustment of the mA and/or kV according to the patient's size; or use of an i terative reconstruction technique. Specific details can be referenced in the facility's radiology C T exam operational policy. CONTRAST: 75 mL Isovue-370 COMPARISON: October 19, 2017 FINDINGS: Visualized lung bases: There is a tiny residual right pleural effusion although appears slightly dec reased when compared to the prior CT. There has been interval resolution of the airspace consolidati on in the dependent portion of both lower lobes Hepatobiliary: Negative. Spleen: Negative. Adrenals: Negative. Pancreas: Negative. Kidneys ureters or bladder: Renal hypodensities bilaterally have remained stable. A Wood catheter d ecompresses the urinary bladder. 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 The peristomal hernia has increa sed in size and now contains a large loop of small bowel which is mildly distended with air and fluid . There are several loops of mildly distended fluid-filled small bowel most prominent throughout the left-sided abdomen. There also appears to be a focal narrowing in the left-sided the pelvis which i s best seen on axial image #97 of series 3 Presacral hypodense collection slightly decreased in size now measuring 2 cm in AP dimension Vessels/spaces/nodes: There are mild vascular calcifications throughout the abdomen and pelvis Bones/soft tissues: There are nondisplaced fractures through the right seventh eighth ninth and 10th ribs Additional findings: None pertinent. IMPRESSION: There are nondisplaced fractures of the right seventh eighth ninth and 10th ribs There is a tiny residual right pleural effusion although appears slightly decreased when compared the prior CT. The stomach is moderately distended with fluid. Again noted are postsurgical changes from resection of the rectum with a diverting colostomy in the l eft lower quadrant. The peristomal hernia has increased in size and now contains a large loop of sma ll bowel which is mildly distended with air and fluid. There are several loops of mildly distended f luid-filled small bowel most prominent in the left-sided abdomen. There also appears to be a focal n arrowing in the left-sided the pelvis as described above. This likely represents a mild partial smal l bowel obstruction. . The previously noted presacral hypodense collection is slightly decreased in size now measuring 2 cm in AP dimension as opposed to 2.3. Report Dictated By: Keena Herrera MD at 12/14/2017 10:15 AM Report E-Signed By: Keena Herrera MD at 10:30 AM WSN:[email or web address]
--- NOTE | 2017-12-14 10:34 | RADIOLOGY IMAGING REPORT ---
FACILITY: [facility] [place] PATIENT NAME: Matthew Roth : 1960 MR: [id number] V: [id number] EXAM DATE: ORDERING PHYSICIAN: RAMY MEYER TECHNOLOGIST: Location: [facility] [place] Patient: Matthew Roth : 1960 Visit/Account:[id number] Date of Sevice: 12/14/[address] scan without contrast HISTORY: Fall COMPARISONS: None TECHNIQUE: Non-contrast head CT was performed with sagittal and coronal reformations. One of the following dose optimization techniques was utilized in the performance of this exam: autom ated exposure control; adjustment of the mA and/or kV according to patient size; or use of iterative reconstruction technique. Specific details can be referenced in the facility's radiology CT exam ope rational policy. FINDINGS: There is no intracranial hemorrhage, hydrocephalus or midline shift. The basal cisterns, de luna-white differentiation, and convexity sulci are maintained. Right periorbital soft tissue swelling noted. Ri ght frontal scalp gas in keeping with laceration. Mild patchy white matter hypoattenuation in keeping with chronic small vessel ischemic change. The mastoid air cells are clear. The paranasal sinuses are clear. The osseous structures are normal . IMPRESSION: No acute intracranial abnormality. Right periorbital soft tissue swelling and right frontal scalp gas in keeping with laceration. Report Dictated By: Vic Angulo MD at 12/14/2017 10:26 AM Report E-Signed By: Vic Angulo MD at 12/14/2017 10:29 AM WSN:[email or web address]
--- NOTE | 2017-12-14 10:37 | RADIOLOGY IMAGING REPORT ---
FACILITY: [facility] [place] PATIENT NAME: Matthew Roth : 1960 MR: [id number] V: [id number] EXAM DATE: ORDERING PHYSICIAN: RAMY MEYER TECHNOLOGIST: Location: [facility] [place] Patient: Matthew Roth : 1960 Visit/Account:[id number] Date of Sevice: 12/14/2017 EXAMINATION: CT Cervical spine without intravenous contrast HISTORY: Fall COMPARISON: None. TECHNIQUE: Axial images were obtained from the skull base through the upper thoracic spine without I V contrast administration. Coronal and sagittal reformatted images were generated from the axial sour ce data. One of the following dose optimization techniques was utilized in the performance of this exam: autom ated exposure control; adjustment of the mA and/or kV according to patient size; or use of iterative reconstruction technique. Specific details can be referenced in the facility's radiology CT exam ope rational policy. FINDINGS: Vertebral bodies and posterior elements: Normal vertebral body heights. No fracture or osseous destr uction. Multilevel facet arthropathy. Alignment: Slight retrolisthesis of C5 on C6. Disc Spaces: Multilevel anterior endplate spurring. Mild C5-6 disc space degeneration. Multilevel deg enerative foraminal narrowing. Soft tissues: Subcentimeter right thyroid nodule statistically represents a benign adenoma. Visualized upper chest: Normal. IMPRESSION: No acute fracture or acute abnormality. Report Dictated By: Vic Angulo MD at 12/14/2017 10:29 AM Report E-Signed By: Vic Angulo MD at 12/14/2017 10:33 AM WSN:[email or web address]
[2017-12-14] MEDS ORDERED: DEXTROSE 50% 50 ML SYR IVP ONE (11:10)
[2017-12-14] MEDS ORDERED: INSU HUM REG 100 U/ML(ER ONLY) 10 ML VIAL IV ONE (11:10)
[2017-12-14] MEDS ORDERED: FUROSEMIDE 40 MG/4 ML VIAL IVP ONE (11:10)
[2017-12-14 11:30] VITALS: BP 125/71
[2017-12-14] MEDS ORDERED: NS(*) 0.9% 1000 ML BAG 1,000 ML IV ONE (18:10)
== END 2017-12-14 12:16 | disposition short-term general hospital (02) ==
LOC: ER 08:12
DX: S22.41XA Multiple fractures of ribs, right side, initial encounter for closed fracture (principal); S72.112A Displaced fracture of greater trochanter of left femur, initial encounter for closed fracture; K56.600 Partial intestinal obstruction, unspecified as to cause; E87.1 Hypo-osmolality and hyponatremia; R65.10 Systemic inflammatory response syndrome (SIRS) of non-infectious origin without acute organ dysfunction; R00.0 Tachycardia, unspecified
CPT/HCPCS: 70450; 71046; 71100; 72125; 74177; 80164; 80178; 80305; 80320; 80329; 81001; 82040; 82140; 82247; 82310; 82374; 82435; 82550; 82565; 82803; 82947; 83605; 83735; 84075; 84132; 84155; 84295; 84443; 84450; 84460; 84484; 84520; 85025; 85049; 85610; 85730; 86850; 86900; 86901; 87040; 87088; 90471; 90715; 93005; 96361; 96365; 96367; 96375; 96376; 99291; 99292; C1758; J0692; J1815; J1940; J2060; J3370; J3411; J3490; J7030; J7050; Q9967

== ENCOUNTER → 2017-12-14 | Outpatient (CLI) | payer MEDICAID ==
[2017-09-11 12:11] VITALS: BMI 24.0
[~2017-12-14] MED LIST changes: +LITH300T18 PO
== END ==
LOC: AMB 07:47
PROVIDERS: ATTEND Nurse Practitioner
DX: R56.9 Unspecified convulsions (principal); S01.81XA Laceration without foreign body of other part of head, initial encounter
CPT/HCPCS: A0425; A0429

== ENCOUNTER → 2017-12-14 | Outpatient (CLI) | payer MEDICAID ==
[2017-09-11 12:11] VITALS: BMI 24.0
== END ==
LOC: AMB 12:00
PROVIDERS: ATTEND Nurse Practitioner
DX: R56.9 Unspecified convulsions (principal); E87.1 Hypo-osmolality and hyponatremia; A41.9 Sepsis, unspecified organism; R79.89 Other specified abnormal findings of blood chemistry
CPT/HCPCS: A0425; A0433